=== PATIENT | female | born 1960 | race Hispanic/Latino ===

== ENCOUNTER 2017-05-08 19:47 | Inpatient (IN) | payer MEDICARE ==
[2017-05-08] MEDS ORDERED: NACL 0.9% 1000 ML IV ONE (21:05)
[2017-05-08] MEDS ORDERED: MAXIPIME/NS 2 GM/100 ML 2 GM/100 ML BAG IV ONE (21:05)
[2017-05-08] MEDS ORDERED: VANCOMYCIN VIAL IV ONE (21:07)
[2017-05-08] MEDS ORDERED: ARTIFICIAL TEARS OPHTH OINT OU PRN (21:07)
[2017-05-08] MEDS ORDERED: VASELINE LIP THERAPY TP PRN (21:07)
[2017-05-08] MEDS ORDERED: ATIVAN IV PRN (21:07)
--- NOTE | 2017-05-08 21:10 | Emergency Department Report ---
ED General Adult HPI - General Chief complaint: Pain General Stated complaint: ABD PAIN Time Seen by Provider: 05/08/17 20:45 Source: EMS (ems notes not available at time of chart dictation), RN notes reviewed, old records reviewed Mode of arrival: Stretcher Limitations: Altered Mental Status - History of Present Illness Initial comments: This is a 56-year-old female. This provider has evaluated this patient in the past. As per my previous documentation, patient has a past medical history of end-stage renal disease on dialysis, diabetes, hypertension, high cholesterol and heart disease. The patient is brought to the hospital by EMS. EMS verbally reported that the patient's family contacted them because of generalized weakness. When I initially went to evaluate this patient, the patient was slumped over and somnolent. She was very difficult to arouse. The patient was not protecting her airway. Therefore, she was intubated by myself using direct laryngoscopy; patient was induced with 150 mg of ketamine, and paralyzed with 100 mg of rocuronium. A Katja 3 blade was inserted using direct laryngoscopy, and a 7.5 endotracheal tube was placed by myself with 1 attempt, with no difficulty, and had positive postintubation color change and bilateral breath sounds. Patient found to be hypotensive, low-grade temperature of 100.2, tachycardic. Sepsis called overhead. No family is available at this time for collateral corroborating information. History is otherwise limited except as noted. -: unknown Severity scale (0 -10): 0 Quality: other (per hpi) Consistency: other (per hpi) Improves with: other (per hpi) Worsens with: other (per hpi) Associated Symptoms: confusion, shortness of breath, weakness, other (per hpi) - Related Data Home Medications Medication Instructions Recorded Confirmed Last Taken Aspirin [Aspirin BABY CHEW TAB] 81 mg PO QDAY 02/17/16 05/28/16 05/26/16 AtorvaSTATin [Lipitor] 40 mg PO DAILY 02/17/16 05/28/16 05/26/16 Cinacalcet [Sensipar] 30 mg PO BID 02/17/16 05/28/16 05/26/16 Cyclobenzaprine [Flexeril 10 MG 10 mg PO TID PRN 02/17/16 05/28/16 05/26/16 TAB] Furosemide [Lasix TAB] 40 mg PO QDAY 02/17/16 05/28/16 05/26/16 Gabapentin [Neurontin] 300 mg PO Q8HR 02/17/16 05/28/16 05/26/16 Lisinopril [Zestril TAB] 20 mg PO QDAY 02/17/16 05/28/16 05/26/16 Omeprazole 20 mg PO DAILY 02/17/16 05/28/16 05/26/16 Promethazine [Phenergan TAB] 25 mg PO Q6HR PRN 02/17/16 05/28/16 05/26/16 Sertraline [Zoloft] 50 mg PO QDAY 02/17/16 05/28/16 05/26/16 Sevelamer Carbonate [Renvela] 800 mg PO TIDWM 02/17/16 05/28/16 05/26/16 Ticagrelor [Brilinta] 90 mg PO BID 02/17/16 05/28/16 05/26/16 amLODIPine [Norvasc] 5 mg PO DAILY 02/17/16 05/28/16 05/26/16 traZODone [Desyrel] 50 mg PO QHS 02/17/16 05/28/16 05/26/16 Previous Rx's Medication Instructions Recorded Last Taken Type Albuterol Sulfate [Ventolin HFA] 2 puff IH Q4H PRN #1 pump 04/11/16 05/26/16 Rx Prednisone [predniSONE 5 mg (6-Day 5 mg PO .TAPER #1 tab.ds.pk 04/11/16 Rx Pack, 21 Tabs)] Allergies Allergy/AdvReac Type Severity Reaction Status Date / Time Sulfa (Sulfonamide Allergy Unknown Verified 05/08/17 20:32 Antibiotics) ED Review of Systems ROS: Stated complaint: ABD PAIN Other details as noted in HPI Comment: Unobtainable due to pts medical conditions ED Past Medical Hx - Past Medical History Previous Medical History?: Yes Hx Hypertension: Yes Hx CVA: Yes Hx Heart Attack/AMI: Yes Hx Congestive Heart Failure: Yes Hx Diabetes: Yes Hx Renal Disease: Yes (MWF dialysis.) Hx Asthma: No Hx COPD: No Hx HIV: No - Surgical History Hx Coronary Stent: Yes (01/2016) Hx Cholecystectomy: Yes Additional Surgical History: Fistula Placement in Left arm. - Social History Smoking Status: Current Every Day Smoker Substance Use Type: None - Medications Home Medications: Home Medications Medication Instructions Recorded Confirmed Last Taken Type Aspirin [Aspirin BABY CHEW TAB] 81 mg PO QDAY 02/17/16 05/28/16 05/26/16 History AtorvaSTATin [Lipitor] 40 mg PO DAILY 02/17/16 05/28/16 05/26/16 History Cinacalcet [Sensipar] 30 mg PO BID 02/17/16 05/28/16 05/26/16 History Cyclobenzaprine [Flexeril 10 MG 10 mg PO TID PRN 02/17/16 05/28/16 05/26/16 History TAB] Furosemide [Lasix TAB] 40 mg PO QDAY 02/17/16 05/28/16 05/26/16 History Gabapentin [Neurontin] 300 mg PO Q8HR 02/17/16 05/28/16 05/26/16 History Lisinopril [Zestril TAB] 20 mg PO QDAY 02/17/16 05/28/16 05/26/16 History Omeprazole 20 mg PO DAILY 02/17/16 05/28/16 05/26/16 History Promethazine [Phenergan TAB] 25 mg PO Q6HR PRN 02/17/16 05/28/16 05/26/16 History Sertraline [Zoloft] 50 mg PO QDAY 02/17/16 05/28/16 05/26/16 History Sevelamer Carbonate [Renvela] 800 mg PO TIDWM 02/17/16 05/28/16 05/26/16 History Ticagrelor [Brilinta] 90 mg PO BID 02/17/16 05/28/16 05/26/16 History amLODIPine [Norvasc] 5 mg PO DAILY 02/17/16 05/28/16 05/26/16 History traZODone [Desyrel] 50 mg PO QHS 02/17/16 05/28/16 05/26/16 History Albuterol Sulfate [Ventolin HFA] 2 puff IH Q4H PRN #1 pump 04/11/16 05/28/16 Rx Prednisone [predniSONE 5 mg (6-Day 5 mg PO .TAPER #1 tab.ds.pk 04/11/1605/26/16 Rx Pack, 21 Tabs)] ED Physical Exam - General Limitations: No Limitations, Altered Mental Status, Physical Limitation General appearance: obtunded - Head Head exam: Present: other (patient has numerous ecchymoses in various stages of healing on the face.) - Eye Eye exam: Present: normal appearance, PERRL, other (cloudy pupils bilaterally, reactive to light bilaterally.) - ENT ENT exam: Present: mucous membranes dry - Neck Neck exam: Present: normal inspection, full ROM - Respiratory Respiratory exam: Present: respiratory distress, rhonchi - Cardiovascular Cardiovascular Exam: Present: tachycardia, normal heart sounds, JVD - GI/Abdominal GI/Abdominal exam: Present: soft, tenderness, normal bowel sounds, other ( numerous ecchymoses noted). Absent: distended, guarding, rebound, rigid, pulsatile mass - Rectal Rectal exam: Present: normal inspection, normal rectal tone, heme (-) stool - External exam: Present: normal external exam - Extremities Exam Extremities exam: Absent: tenderness, pedal edema - Back Exam Back exam: Absent: paraspinal tenderness, vertebral tenderness - Neurological Exam Neurological exam: Present: altered, other (patient made some nonsensical statements prior to intubation, moves 4 extremities when induced with ketamine) - Skin Skin exam: Present: dry, ecchymosis ED Course Vital Signs 05/08/17 05/08/17 05/08/17 20:30 20:40 20:42 Temperature Pulse Rate 96 H 96 H 95 H Respiratory 26 H 27 H 30 H Rate Blood Pressure 86/53 Blood Pressure 86/53 [Right] O2 Sat by Pulse 96 96 Oximetry 05/08/17 05/08/17 05/08/17 20:51 21:00 21:10 Temperature Pulse Rate 94 H 90 96 H Respiratory 37 H 20 18 Rate Blood Pressure 91/57 93/57 Blood Pressure [Right] O2 Sat by Pulse 100 100 Oximetry 05/08/17 05/08/17 05/08/17 21:14 21:20 21:30 Temperature Pulse Rate 97 H 96 H 96 H Respiratory 18 18 Rate Blood Pressure 93/57 85/50 93/57 Blood Pressure [Right] O2 Sat by Pulse 95 94 Oximetry 05/08/17 05/08/17 05/08/17 21:40 21:50 22:00 Temperature Pulse Rate 98 H 98 H 100 H Respiratory 14 18 17 Rate Blood Pressure 90/53 90/58 96/62 Blood Pressure [Right] O2 Sat by Pulse Oximetry 05/08/17 05/08/17 05/08/17 22:10 22:20 22:30 Temperature Pulse Rate 99 H 92 H 92 H Respiratory 18 18 18 Rate Blood Pressure 101/60 88/52 90/53 Blood Pressure [Right] O2 Sat by Pulse 100 100 100 Oximetry 05/08/17 05/08/17 05/08/17 22:40 22:50 23:14 Temperature Pulse Rate 90 86 Respiratory 18 18 Rate Blood Pressure 87/45 78/39 73/31 Blood Pressure [Right] O2 Sat by Pulse 100 100 Oximetry 05/08/17 05/08/17 05/08/17 23:20 23:30 23:40 Temperature Pulse Rate 83 84 87 Respiratory 18 18 18 Rate Blood Pressure 71/37 67/35 91/56 Blood Pressure [Right] O2 Sat by Pulse 100 100 100 Oximetry 05/08/17 05/09/17 05/09/17 23:50 00:00 00:10 Temperature Pulse Rate 87 90 94 H Respiratory 18 18 18 Rate Blood Pressure 75/40 67/29 108/61 Blood Pressure [Right] O2 Sat by Pulse 100 100 100 Oximetry 05/09/17 05/09/17 05/09/17 00:14 00:15 00:20 Temperature Pulse Rate 94 H 94 H 95 H Respiratory 18 17 18 Rate Blood Pressure 108/61 107/66 106/63 Blood Pressure [Right] O2 Sat by Pulse 100 100 Oximetry 05/09/17 05/09/17 05/09/17 00:25 00:30 00:35 Temperature 100.2 F H Pulse Rate 94 H 94 H 94 H Respiratory 18 18 18 Rate Blood Pressure 106/66 105/65 104/63 Blood Pressure 108/68 [Right] O2 Sat by Pulse 100 100 Oximetry 05/09/17 05/09/17 05/09/17 00:40 00:45 00:50 Temperature Pulse Rate 94 H 93 H 94 H Respiratory 19 18 18 Rate Blood Pressure 102/61 97/56 101/59 Blood Pressure [Right] O2 Sat by Pulse 99 96 Oximetry 05/09/17 05/09/17 05/09/17 00:55 01:00 01:05 Temperature Pulse Rate 95 H 95 H 95 H Respiratory 18 18 18 Rate Blood Pressure 104/59 100/54 101/54 Blood Pressure [Right] O2 Sat by Pulse 94 99 100 Oximetry 05/09/17 05/09/17 05/09/17 01:10 01:15 01:20 Temperature Pulse Rate 97 H 101 H 98 H Respiratory 12 18 12 Rate Blood Pressure 101/54 118/62 118/62 Blood Pressure [Right] O2 Sat by Pulse 98 98 Oximetry 05/09/17 05/09/17 05/09/17 01:26 01:30 01:36 Temperature Pulse Rate 96 H 96 H 96 H Respiratory 18 18 18 Rate Blood Pressure 118/62 97/46 97/46 Blood Pressure [Right] O2 Sat by Pulse 100 98 100 Oximetry 05/09/17 05/09/17 05/09/17 01:40 01:45 01:50 Temperature Pulse Rate 96 H 95 H 96 H Respiratory 18 17 19 Rate Blood Pressure 97/46 91/47 91/47 Blood Pressure [Right] O2 Sat by Pulse 100 100 100 Oximetry 05/09/17 05/09/17 05/09/17 01:56 02:00 02:06 Temperature Pulse Rate 96 H 96 H 97 H Respiratory 18 18 18 Rate Blood Pressure 91/47 95/54 95/54 Blood Pressure [Right] O2 Sat by Pulse 100 100 100 Oximetry 05/09/17 05/09/17 05/09/17 02:10 02:15 02:20 Temperature Pulse Rate 96 H 96 H 96 H Respiratory 18 16 18 Rate Blood Pressure 95/54 94/50 94/50 Blood Pressure [Right] O2 Sat by Pulse 100 100 100 Oximetry 05/09/17 05/09/17 05/09/17 02:26 02:30 02:36 Temperature Pulse Rate 97 H 97 H 95 H Respiratory 18 17 18 Rate Blood Pressure 94/50 90/48 90/48 Blood Pressure [Right] O2 Sat by Pulse 100 100 100 Oximetry 05/09/17 05/09/17 05/09/17 02:40 02:45 02:50 Temperature Pulse Rate 95 H 96 H 97 H Respiratory 18 18 18 Rate Blood Pressure 90/48 97/55 97/55 Blood Pressure [Right] O2 Sat by Pulse 100 100 100 Oximetry 05/09/17 05/09/17 05/09/17 02:56 03:00 03:02 Temperature Pulse Rate 96 H 97 H 97 H Respiratory 18 18 18 Rate Blood Pressure 97/55 96/52 96/52 Blood Pressure [Right] O2 Sat by Pulse 100 100 100 Oximetry 05/09/17 05/09/17 05/09/17 03:04 03:06 03:08 Temperature Pulse Rate 97 H 96 H 96 H Respiratory 18 18 18 Rate Blood Pressure 96/52 96/52 96/52 Blood Pressure [Right] O2 Sat by Pulse 100 100 100 Oximetry 05/09/17 05/09/17 05/09/17 03:10 03:12 03:14 Temperature Pulse Rate 96 H 97 H 97 H Respiratory 18 18 18 Rate Blood Pressure 96/52 96/52 96/52 Blood Pressure [Right] O2 Sat by Pulse 100 100 100 Oximetry 05/09/17 05/09/17 05/09/17 03:16 03:18 03:20 Temperature Pulse Rate 96 H 96 H 96 H Respiratory 18 18 18 Rate Blood Pressure 95/50 95/50 95/50 Blood Pressure [Right] O2 Sat by Pulse 100 100 100 Oximetry 05/09/17 05/09/17 05/09/17 03:22 03:24 03:26 Temperature Pulse Rate 96 H 99 H 102 H Respiratory 15 21 31 H Rate Blood Pressure 95/50 95/50 74/38 Blood Pressure [Right] O2 Sat by Pulse 100 100 Oximetry 05/09/17 05/09/17 05/09/17 03:28 03:30 03:32 Temperature Pulse Rate 101 H 99 H 97 H Respiratory 27 H 24 24 Rate Blood Pressure 74/38 94/49 94/49 Blood Pressure [Right] O2 Sat by Pulse 100 100 Oximetry 05/09/17 05/09/17 05/09/17 03:34 04:00 04:01 Temperature 99.3 F Pulse Rate 97 H 97 H Respiratory 19 22 Rate Blood Pressure 94/49 114/96 Blood Pressure [Right] O2 Sat by Pulse 100 95 100 Oximetry - Reevaluation(s) Reevaluation #1: 05/08/17 21:22 Differential diagnosis, including but not limited to: Intracranial injury, cervical spine injury, multifactorial respiratory failure, toxic metabolic encephalopathy, pneumonia, intra-abdominal infection, bacteremia, traumatic chest wall injury, traumatic abdominal injury Assessment and plan: 56 to the hospital by EMS for altered mental status and generalized weakness. Patient found to be hypotensive with a blood pressure in the 90s, patient in respiratory failure and required intubation. Patient altered, tachypnea, low-grade temperature, concerning for sepsis. Patient has multiple ecchymoses all over her body, EMS verbally indicated that the patient was taking blood thinners but they do not know which one. Prior to intubation, the patient did complain of abdominal pain, but she cannot further clarify this. Patient left we treated empirically for sepsis, with IV fluids, and aggressive broad-spectrum antibiotics. The patient we ventilated at a lung protective strategy at 6-8 mL/kg of ideal body weight tidal volume, for ideal body weight. We will obtain CT scan of the brain, cervical spine, chest, abdomen, pelvis. We will reassess once data points have resulted. c 05/15/17 14:55 Reevaluation #2: 05/08/17 21:52 Patient's endotracheal tube is noted in the right mainstem, it is therefore retracted 2.5 cm by respiratory therapy. Reevaluation #3: 05/08/17 21:55 Nasogastric tube noted to be doubled over and the nasopharynx/esophagus, it will be replaced by the nurse. Reevaluation #4: 05/08/17 22:36 Blood pressure improved, systolic 101. Chemistry hemolyzed, repeat study ordered. CT scan pending. Reevaluation #5: 05/08/17 23:55 Patient persistently hypotensive in spite of 3.5 L of saline. Patient is therefore emergently and administratively consented for central line placement by myself given that there are no family members available. Central line placed by this provider using ultrasound guidance, and was confirmed in real time ultrasound placement. Noncontrast CT scan of the brain negative for hemorrhages, sinusitis is suggested, noncontrast CT scan of the cervical spine for fracture/dislocation, multiple disc bulges noted, cord contact noted at several levels, cord compression cannot be excluded. Patient moving 4 extremities prior to intubation, given hypotension, altered mental status, think acute coronary compression very unlikely. CT scan of the chest demonstrates CHF/pulmonary edema versus aspiration pneumonia. CT scan of the abdomen and pelvis suggests infiltrates in the bilateral lower lungs. Cardiomegaly is noted, ascites is noted. Case presents to the Hospital physician, Dr. Vick; he accepts the patient to the medical service. Contacted respiratory therapy, requested that they withdraw the endotracheal tube in additional 2 cm. 05/09/17 01:02 Blood pressure improved, patient remains sedated, minimal urine output, less than 10 mL. - Consultations Consultation #1: 05/08/17 22:38 Case presented to critical care physician, Dr. Miller, he will follow in consultation Patient's blood pressure now 88/50, additional 2 L ordered. Scant urine output thus far - Central Line Placement Left IJ Consent Obtained: verbal consent, emergent situation Time Out Performed: Yes Patient Placed on Monitor/Pulse Ox: Yes MD Prep: mask, gown Central Line Prep: Povidone-Iodine 1%, Chlorhexidine scrub Local Anesthesia Used: Lidocaine 1% Amount of Anesthesia Used (mls): 5 Ultrasound Used for Placement: Yes Central Line Lumen Inserted: triple Bloods Obtained for Lab: Yes Central Line Position: good blood return, all ports aspirated, flus, sutured in place with 2-0 Dressing Applied: Tegaderm Patient Tolerated Procedure: well Complications: none Additional Comments: Patient was hypotensive. Blood pressure in the 70s after 3.5 L of normal saline. No family is immediately available, so patient is emergently and administratively consented by this provider for central line placement for vasopressor administration. Patient was prepped and draped in typical sterile fashion, and had a left-sided internal jugular triple-lumen central line placed using ultrasound guidance. The catheter placement was confirmed with ultrasound visualization in real-time. Post procedure x-rays pending at this time. - EJ/Peripheral Line Neck R Time Out Performed: Yes Indications: multiple IV sites needed Skin Cleansed in Sterile Fashion: Yes Size: 18 Dressing Placed: Tegaderm Patient Tolerated Procedure: well - Intubation Time Out Performed: Yes Sedative: Ketamine Mg Given: 150 Paralytic: Rocuronium Mg Given: 100 Laryngoscope: Katja Size: 3 ET Tube Size: 7.5 Tube Secured Location: teeth Tube Placement Confirmation: visualized tube passing t Patient Tolerated Procedure: well Intubation Complications: none Additional Comments: Patient placed on a nasal cannula at 15 L/m. Patient receives [id number] ventilation. Patient is induced with ketamine, and paralyzed with rocuronium. A 7.5 endotracheal tube was placed by myself with 1 attempt with no difficulty. ED Medical Decision Making - Lab Data Result diagrams: 05/15/17 03:45 05/15/17 12:15 Vital Signs 05/08/17 05/08/17 05/08/17 20:30 20:42 21:14 Pulse Rate 96 H 95 H 97 H Respiratory 26 H 30 H Rate Blood Pressure 93/57 Blood Pressure 86/53 [Right] O2 Sat by Pulse 96 95 Oximetry Lab Results 05/08/17 05/08/17 05/08/17 Range/Units 21:25 21:25 21:25 WBC 10.1 (4.5-11.0) K/mm3 RBC 2.55 L (3.65-5.03) M/mm3 Hgb 8.9 L (10.1-14.3) gm/dl Hct 28.1 L (30.3-42.9) % MCV 111 H (79-97) fl MCH 35 H (28-32) pg MCHC 32 (30-34) % RDW 25.4 H (13.2-15.2) % Plt Count 214 (140-440) K/mm3 Lymph % (Auto) Grizzly Worker [place] % (Auto) Grizzly Worker Eos % (Auto) Grizzly Worker Baso % (Auto) Grizzly Worker Lymph # Grizzly Worker [place] # Grizzly Worker Eos # Grizzly Worker Baso # Grizzly Worker Add Manual Diff Complete Total Counted 100 Seg Neutrophils % Grizzly Worker Seg Neuts % (Manual) 92.0 H (40.0-70.0) % Band Neutrophils % 0 % Lymphocytes % (Manual) 6.0 L (13.4-35.0) % Reactive Lymphs % (Man) 0 % Monocytes % (Manual) 2.0 (0.0-7.3) % Eosinophils % (Manual) 0 (0.0-4.3) % Basophils % (Manual) 0 (0.0-1.8) % Metamyelocytes % 0 % Myelocytes % 0 % Promyelocytes % 0 % Blast Cells % 0 % Nucleated RBC % Not Reportable Seg Neutrophils # Grizzly Worker Seg Neutrophils # Man 9.3 H (1.8-7.7) K/mm3 Band Neutrophils # 0.0 K/mm3 Lymphocytes # (Manual) 0.6 L (1.2-5.4) K/mm3 Abs React Lymphs (Man) 0.0 K/mm3 Monocytes # (Manual) 0.2 (0.0-0.8) K/mm3 Eosinophils # (Manual) 0.0 (0.0-0.4) K/mm3 Basophils # (Manual) 0.0 (0.0-0.1) K/mm3 Metamyelocytes # 0.0 K/mm3 Myelocytes # 0.0 K/mm3 Promyelocytes # 0.0 K/mm3 Blast Cells # 0.0 K/mm3 WBC Morphology Not Reportable Hypersegmented Neuts Not Reportable Hyposegmented Neuts Not Reportable Hypogranular Neuts Not Reportable Smudge Cells Not Reportable Toxic Granulation Not Reportable Toxic Vacuolation Not Reportable Dohle Bodies Not Reportable Pelger-Huet Anomaly Not Reportable Anthony Rods Not Reportable Platelet Estimate Consistent w auto Clumped Platelets Not Reportable Plt Clumps, EDTA Not Reportable Large Platelets Not Reportable Giant Platelets Not Reportable Platelet Satelliting Not Reportable Plt Morphology Comment Not Reportable RBC Morphology Not Reportable Dimorphic RBCs Yes Polychromasia 1+ Hypochromasia Not Reportable Poikilocytosis Not Reportable Anisocytosis Not Reportable Microcytosis 1+ Macrocytosis 1+ Spherocytes Not Reportable Pappenheimer Bodies Not Reportable Sickle Cells Not Reportable Target Cells Not Reportable Tear Drop Cells Few Ovalocytes Not Reportable Helmet Cells Not Reportable Milligan-[place] Bodies Not Reportable [place] Rings Not Reportable [place] Cells Not Reportable Bite Cells Not Reportable Crenated Cell Not Reportable Elliptocytes Not Reportable Acanthocytes (Spur) Not Reportable Rouleaux Not Reportable Hemoglobin C Crystals Not Reportable Schistocytes Not Reportable Malaria parasites Not Reportable Jose Bodies Not Reportable Hem Pathologist Commnt No PT 15.2 H (12.2-14.9) Sec. INR 1.14 H (0.87-1.13) Sodium Potassium Chloride Carbon Dioxide Anion Gap BUN Creatinine Estimated GFR BUN/Creatinine Ratio Glucose Lactic Acid 2.50 H* (0.7-2.0) mmol/L Calcium Total Bilirubin AST ALT Alkaline Phosphatase Troponin T Total Protein Albumin Albumin/Globulin Ratio Salicylates (2.8-20.0) mg/dL Acetaminophen (10.0-30.0) ug/mL 05/08/17 05/08/17 05/08/17 Range/Units 21:25 21:35 21:35 WBC (4.5-11.0) K/mm3 RBC (3.65-5.03) M/mm3 Hgb (10.1-14.3) gm/dl Hct (30.3-42.9) % MCV (79-97) fl MCH (28-32) pg MCHC (30-34) % RDW (13.2-15.2) % Plt Count (140-440) K/mm3 Lymph % (Auto) [place] % (Auto) Eos % (Auto) Baso % (Auto) Lymph # [place] # Eos # Baso # Add Manual Diff Total Counted Seg Neutrophils % Seg Neuts % (Manual) (40.0-70.0) % Band Neutrophils % % Lymphocytes % (Manual) (13.4-35.0) % Reactive Lymphs % (Man) % Monocytes % (Manual) (0.0-7.3) % Eosinophils % (Manual) (0.0-4.3) % Basophils % (Manual) (0.0-1.8) % Metamyelocytes % % Myelocytes % % Promyelocytes % % Blast Cells % % Nucleated RBC % Seg Neutrophils # Seg Neutrophils # Man (1.8-7.7) K/mm3 Band Neutrophils # K/mm3 Lymphocytes # (Manual) (1.2-5.4) K/mm3 Abs React Lymphs (Man) K/mm3 Monocytes # (Manual) (0.0-0.8) K/mm3 Eosinophils # (Manual) (0.0-0.4) K/mm3 Basophils # (Manual) (0.0-0.1) K/mm3 Metamyelocytes # K/mm3 Myelocytes # K/mm3 Promyelocytes # K/mm3 Blast Cells # K/mm3 WBC Morphology Hypersegmented Neuts Hyposegmented Neuts Hypogranular Neuts Smudge Cells Toxic Granulation Toxic Vacuolation Dohle Bodies Pelger-Huet Anomaly Anthony Rods Platelet Estimate Clumped Platelets Plt Clumps, EDTA Large Platelets Giant Platelets Platelet Satelliting Plt Morphology Comment RBC Morphology Dimorphic RBCs Polychromasia Hypochromasia Poikilocytosis Anisocytosis Microcytosis Macrocytosis Spherocytes Pappenheimer Bodies Sickle Cells Target Cells Tear Drop Cells Ovalocytes Helmet Cells Milligan-[place] Bodies [place] Rings [place] Cells Bite Cells Crenated Cell Elliptocytes Acanthocytes (Spur) Rouleaux Hemoglobin C Crystals Schistocytes Malaria parasites Jose Bodies Hem Pathologist Commnt PT (12.2-14.9) Sec. INR (0.87-1.13) Sodium TNR Potassium TNR Chloride TNR Carbon Dioxide TNR Anion Gap TNR BUN TNR Creatinine TNR Estimated GFR TNR BUN/Creatinine Ratio TNR Glucose TNR Lactic Acid (0.7-2.0) mmol/L Calcium TNR Total Bilirubin TNR AST TNR ALT TNR Alkaline Phosphatase TNR Troponin T TNR Total Protein TNR Albumin TNR Albumin/Globulin Ratio TNR Salicylates < 0.3 L (2.8-20.0) mg/dL Acetaminophen < 15.0 (10.0-30.0) ug/mL - EKG Data -: EKG Interpreted by Me EKG shows normal: sinus rhythm Rate: normal - EKG Data 05/08/17 22:38 Sinus, 94 bpm, normal axis, QTC prolonged, motion artifact, low voltage, abnormal EKG, not morphologically consistent with stemi - Radiology Data Radiology results: report reviewed, image reviewed interpreted by me: Initial x-ray demonstrates right mainstem intubation, cardiomegaly, left-sided pulmonary atelectasis versus consolidation. Nasogastric tube is coiled. Critical Care Time: Yes Critical care time in (mins) excluding proc time.: 60 Critical care attestation.: If time is entered above; I have spent that time in minutes in the direct care of this critically ill patient, excluding procedure time. ED Disposition Clinical Impression: ESRD (end stage renal disease), Respiratory failure, Altered mental status Disposition: OP ADMIT IP TO THIS HOSP Is pt being admited?: Yes Condition: Critical
[2017-05-08] MEDS ORDERED: VANCOMYCIN 1,250 MG in NACL 0.9% 250ML 250 ML IV ONE (21:30)
[2017-05-08] MEDS ORDERED: MAXIPIME 2 GM in NACL 0.9% 20 ML IV ONE (21:30)
[2017-05-08 21:42] LABS: Hematocrit 28.1 % (30.3-42.9); Hemoglobin 8.9 gm/dl (10.1-14.3); Mean Corpuscular HGB Conc 32 % (30-34); Mean Corpuscular Hemoglobin 35 pg (28-32); Platelet Count 214 K/mm3 (140-440); Red Blood Count 2.55 M/mm3 (3.65-5.03)
[2017-05-08 21:43] LABS: Mean Corpuscular Volume 111 fl (79-97); Red Cell Distribution Width 25.4 % (13.2-15.2)
[2017-05-08 21:45] LABS: INR 1.14 (0.87-1.13)
[2017-05-08] MEDS ORDERED: VANCOMYCIN PHARMACY TO DOSE IV SCH (22:00)
[2017-05-08] MEDS ORDERED: NACL 0.9% 500 ML IV SCH (22:00)
[2017-05-08] MEDS ORDERED: fentaNYL DRIP Premix 2,000 MCG/100 ML BAG IV SCH (22:00)
--- NOTE | 2017-05-08 22:05 | XRay Report ---
FINAL REPORT PROCEDURE: XR CHEST 1V AP TECHNIQUE: Chest radiograph anteroposterior view. CPT 07328 HISTORY: ETT placement COMPARISON: 05/26/2016 FINDINGS: Heart: Appears to be moderately enlarged.. Mediastinum/Vessels: Normal. Lungs/Pleural space: There is consolidation of left perihilar region. Left lower lung and left costophrenic angle are obscured by the cardiac shadow. Right pleural space is clear.. Bony thorax: No acute osseous abnormality. Life support devices: Endotracheal tube is terminating in the distal right main bronchus. A nasogastric tube as a 180 degree turn in the distal esophagus and appears to be terminating in the cervical portion.. IMPRESSION: Endotracheal tube is terminating in the distal right main bronchus. Consolidation of left pre hilar region may represent pneumonia versus atelectatic change. Nasogastric tube has a hairpin band in the distal esophagus..
[2017-05-08 22:19] LABS: Blood Urea Nitrogen TNR mg/dL (7-17)
[2017-05-08 22:20] LABS: BUN/Creatinine Ratio TNR; Calcium TNR mg/dL (8.4-10.2)
[2017-05-08 22:21] LABS: Alanine Aminotransferase TNR units/L (7-56); Albumin TNR g/dL (3.9-5); Hemolysis Index TNR
[2017-05-08 22:28] LABS: Total Cells Counted 100
[2017-05-08 22:29] LABS: Basophils % (Manual) 0 % (0.0-1.8); Eosinophils % (Manual) 0 % (0.0-4.3)
[2017-05-08 22:32] LABS: Dimorphic RBC Yes; Macrocytosis 1+; Tear Drop Cells Few
[2017-05-08 22:33] LABS: Platelet Estimate Consistent w Auto
[2017-05-08] MEDS ORDERED: NACL 0.9% 1000 ML 2,000 ML IV ONE (22:37)
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
--- NOTE | 2017-05-08 23:41 | Cat Scan Report ---
FINAL REPORT PROCEDURE: CT ABDOMEN PELVIS WO CON TECHNIQUE: Computerized axial tomography of the abdomen and pelvis was performed without intravenous contrast. This study is performed without intravascular contrast material and its sensitivity for abdominal and pelvic pathology, including neoplasms, inflammation, abscess, free fluid, thrombosis, arterial dissection and infarction, is reduced compared with a contrast enhanced study. HISTORY: Fever/Sepsis COMPARISON: No prior studies are available for comparison. FINDINGS: Extensive infiltrates are identified involving the visualized bilateral lower lungs. There is [id number] cardiomegaly. Cul of, and adrenal glands are within normal limits. A nasogastric tube is identified. Bilateral kidneys demonstrate thinning of parenchyma. No calculi or hydronephrosis or identified. A Fontaine bulb is noted with the empty urinary bladder. Atherosclerotic calcification is noted involving aorta iliac vessels. There is moderate degree ascites. No free fluid is noted. Status post cholecystectomy. Small calcified granulomas are noted in the liver and spleen. Small bowel loops are within normal limits. Moderate amount of residual stool is noted. Appendix is normal. Benign-appearing calcifications are noted in the uterus most likely representing calcified fibroids.. IMPRESSION: Infiltrates visualized bilateral lower lungs. Moderate cardiomegaly Moderate ascites.
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
[2017-05-08] MEDS ORDERED: LEVOPHED DRIP 4 MG/NS 250 ML 4 MG/250 ML BAG IV SCH (23:45)
[2017-05-08 23:56] LABS: Calcium 7.3 mg/dL (8.4-10.2)
[2017-05-08 23:57] LABS: Albumin 2.9 g/dL (3.9-5)
[2017-05-09] MEDS ORDERED: KETALAR ONE (00:24)
[2017-05-09] MEDS ORDERED: ZEMURON IV ONE (00:24)
--- NOTE | 2017-05-09 00:29 | XRay Report ---
FINAL REPORT PROCEDURE: XR CHEST 1V AP TECHNIQUE: Chest radiograph anteroposterior view. CPT 41252 HISTORY: s/p central line placement COMPARISON: 05/08/2017 FINDINGS: Heart: Normal. Mediastinum/Vessels: Normal. Lungs/Pleural space: There are bilateral lower lobe pulmonary infiltrates.. Bony thorax: No acute osseous abnormality. Life support devices: ET tube is in the mid trachea. NG tube is in the stomach. There a left-sided central venous catheter. The tip is in the superior vena cava.. IMPRESSION: Heart size is normal.. There are bilateral lower lobe pulmonary infiltrates.. ET tube is in the mid trachea. NG tube is in the stomach. There a left-sided central venous catheter. The tip is in the superior vena cava..
[2017-05-09] MEDS ORDERED: VANCOMYCIN PHARMACY TO DOSE IV SCH (01:00)
[2017-05-09] MEDS ORDERED: TYLENOL PR PRN (01:10)
[2017-05-09 01:46] LABS: Bacteria,Urine 1+ /HPF (Negative); Bilirubin,Urine NEG (Negative); Blood,Urine SM (Negative); Color,Urine Yellow (Yellow); Nitrite,Urine NEG (Negative); Urobilinogen,Urine < 2.0 mg/dL (<2.0)
[2017-05-09] MEDS ORDERED: LEVOPHED DRIP 4 MG/NS 250 ML 4 MG/250 ML BAG IV SCH ×2 (02:00→09:00)
[2017-05-09] MEDS ORDERED: MAXIPIME/NS 1 GM/100 ML 1 GM/100 ML BAG IV SCH (06:00)
[2017-05-09] MEDS ORDERED: MAXIPIME 1 GM in NACL 0.9% 20 ML IV SCH (06:00)
[2017-05-09 06:43] LABS: Calcium 7.7 mg/dL (8.4-10.2)
[2017-05-09 06:44] LABS: Creatine Kinase MB 2.1 ng/mL (0.0-4.0)
[2017-05-09 06:48] LABS: Hemoglobin 9.3 gm/dl (10.1-14.3); Mean Corpuscular HGB Conc 31 % (30-34); Mean Corpuscular Hemoglobin 35 pg (28-32); Mean Corpuscular Volume 112 fl (79-97); Platelet Count 280 K/mm3 (140-440); Red Blood Count 2.67 M/mm3 (3.65-5.03); Red Cell Distribution Width 24.4 % (13.2-15.2)
[2017-05-09 06:58] LABS: Chol/HDL Ratio 2.7 %
[2017-05-09] MEDS: HEPARIN SUB-Q SCH ×2 (10:23→22:12)
--- NOTE | 2017-05-09 11:22 | Consultation ---
History of Present Illness Consult date: 05/09/17 Requesting physician: KELLEY DAVIS Reason for consult: hypoxemia, abnormal CXR/CT History of present illness: 56 y/o female, with ESRD on HD, brought in by EMS with altered mental status. Per ED physician, not able to protect her airway so was intubated. CT of chest shows diffuse GGO's with some areas of consolidation vs edema and shotty lymphadenopathy, likely secondary to pulmonary edema. patient was also hypotensive so was started on Levophed. No family at bedside. patient is awake. I do not know what days she gets HD. has a fistula in upper arm. Past History Past Medical History: ESRD, hypertension, hyperlipidemia Past Surgical History: Other (fistula placement) Social history: other (unable to obtain) Medications and Allergies Allergies Allergy/AdvReac Type Severity Reaction Status Date / Time Sulfa (Sulfonamide Allergy Unknown Verified 05/08/17 20:32 Antibiotics) Home Medications Medication Instructions Recorded Confirmed Last Taken Type Aspirin [Aspirin BABY CHEW TAB] 81 mg PO QDAY 02/17/16 05/28/16 05/26/16 History AtorvaSTATin [Lipitor] 40 mg PO DAILY 02/17/16 05/28/16 05/26/16 History Cinacalcet [Sensipar] 30 mg PO BID 02/17/16 05/28/16 05/26/16 History Cyclobenzaprine [Flexeril 10 MG 10 mg PO TID PRN 02/17/16 05/28/16 05/26/16 History TAB] Furosemide [Lasix TAB] 40 mg PO QDAY 02/17/16 05/28/16 05/26/16 History Gabapentin [Neurontin] 300 mg PO Q8HR 02/17/16 05/28/16 05/26/16 History Lisinopril [Zestril TAB] 20 mg PO QDAY 02/17/16 05/28/16 05/26/16 History Omeprazole 20 mg PO DAILY 02/17/16 05/28/16 05/26/16 History Promethazine [Phenergan TAB] 25 mg PO Q6HR PRN 02/17/16 05/28/16 05/26/16 History Sertraline [Zoloft] 50 mg PO QDAY 02/17/16 05/28/16 05/26/16 History Sevelamer Carbonate [Renvela] 800 mg PO TIDWM 02/17/16 05/28/16 05/26/16 History Ticagrelor [Brilinta] 90 mg PO BID 02/17/16 05/28/16 05/26/16 History amLODIPine [Norvasc] 5 mg PO DAILY 02/17/16 05/28/16 05/26/16 History traZODone [Desyrel] 50 mg PO QHS 02/17/16 05/28/16 05/26/16 History Albuterol Sulfate [Ventolin HFA] 2 puff IH Q4H PRN #1 pump 04/11/16 05/28/16 Rx Prednisone [predniSONE 5 mg (6-Day 5 mg PO .TAPER #1 tab.ds.pk 04/11/1605/26/16 Rx Pack, 21 Tabs)] Active Meds: Active Medications Acetaminophen (Tylenol) 650 mg MI Q4H PRN PRN Reason: Pain, Mild (1-3) Heparin Sodium (Porcine) (Heparin) 5,000 unit SUB-Q Q12HR TATIANA Last Admin: 05/09/17 10:23 Dose: 5,000 unit Hydrophilic Ointment (Vaseline Lip Therapy) 1 applic TP Q2HR PRN PRN Reason: Dry Lips Fentanyl Citrate (Fentanyl Drip Premix) 2,000 mcg in 100 mls @ 3.402 mls/hr IV TITR TATIANA; 1 MCG/KG/HR PRN Reason: Protocol Last Titration: 05/09/17 07:00 Dose: 0 mcg/kg/hr, 0 mls/hr Norepinephrine (Levophed Drip 4 Mg/Ns 250 Ml) 4 mg in 250 mls @ 7.5 mls/hr IV TITR TATIANA; 2 MCG/MIN PRN Reason: Protocol Lorazepam (Ativan) 4 mg IV Q4HR PRN PRN Reason: Agitation Multi-Ingred Cream/Lotion/Oil/Oint (Artificial Tears Ophth Oint) 1 applic OU Q4HR PRN PRN Reason: Dry Eye(s) Ondansetron HCl (Zofran) 4 mg IV Q8H PRN PRN Reason: Nausea And Vomiting Sodium Chloride (Nacl 0.9% 500 Ml) 1 ml IV DIRECT TATIANA Vancomycin HCl (Vancomycin Pharmacy To Dose) 1 each IV PKCONSULT TATIANA PRN Reason: Protocol Review of Systems ROS unobtainable: due to endotracheal tube Physical Examination Vital signs: Vital Signs Pulse Resp 96 H 26 H 05/08/17 20:30 05/08/17 20:30 General appearance: alert, appears uncomfortable (awake while intubated and coughing) ENT: other (orally intubated) Neck: supple Effort: normal Ascultation: Bilateral: rales Percussion: Bilateral: not dull Cardiovascular: regular rate and rhythm Gastrointestinal: normoactive bowel sounds, soft, non-tender Integumentary: normal Results - Laboratory Findings CBC and BMP: 05/09/17 06:00 05/09/17 06:00 ABG POC ABG pH 7.323 (7.35-7.45) L 05/09/17 08:52 POC ABG pCO2 41.8 (35-45) 05/09/17 08:52 POC ABG pO2 143 (80-105) H 05/09/17 08:52 POC ABG HCO3 21.7 05/09/17 08:52 POC ABG Total CO2 23 05/09/17 08:52 POC ABG O2 Sat 99 05/09/17 08:52 PT/INR, D-dimer PT 15.2 Sec. (12.2-14.9) H 05/08/17 21:25 INR 1.14 (0.87-1.13) H 05/08/17 21:25 Abnormal lab findings: Abnormal Labs 05/08/17 05/08/17 05/08/17 21:25 21:25 21:25 WBC RBC 2.55 L Hgb 8.9 L Hct 28.1 L MCV 111 H MCH 35 H RDW 25.4 H Seg Neuts % (Manual) 92.0 H Lymphocytes % (Manual) 6.0 L Seg Neutrophils # Man 9.3 H Lymphocytes # (Manual) 0.6 L PT 15.2 H INR 1.14 H POC ABG pH POC ABG pCO2 POC ABG pO2 Chloride BUN Creatinine Glucose Lactic Acid 2.50 H* Calcium Alkaline Phosphatase Total Creatine Kinase CK-MB (CK-2) Rel Index Troponin T Total Protein Albumin LDL Cholesterol Direct HDL Cholesterol Urine WBC (Auto) Salicylates 05/08/17 05/08/17 05/08/17 21:35 22:04 22:42 WBC RBC Hgb Hct MCV MCH RDW Seg Neuts % (Manual) Lymphocytes % (Manual) Seg Neutrophils # Man Lymphocytes # (Manual) PT INR POC ABG pH 7.271 L POC ABG pCO2 56.5 H POC ABG pO2 30 L Chloride 107.8 H BUN 22 H Creatinine 2.6 H Glucose 202 H Lactic Acid Calcium 7.3 L Alkaline Phosphatase 258 H Total Creatine Kinase CK-MB (CK-2) Rel Index Troponin T Total Protein 5.2 L Albumin 2.9 L LDL Cholesterol Direct HDL Cholesterol Urine WBC (Auto) Salicylates < 0.3 L 05/08/17 05/09/17 05/09/17 Unknown 00:24 06:00 WBC RBC Hgb Hct MCV MCH RDW Seg Neuts % (Manual) Lymphocytes % (Manual) Seg Neutrophils # Man Lymphocytes # (Manual) PT INR POC ABG pH 7.283 L POC ABG pCO2 49.9 H POC ABG pO2 249 H Chloride BUN Creatinine Glucose Lactic Acid Calcium Alkaline Phosphatase Total Creatine Kinase 19 L CK-MB (CK-2) Rel Index 11.0 H Troponin T 0.612 H* Total Protein Albumin LDL Cholesterol Direct 21 L HDL Cholesterol 27 L Urine WBC (Auto) 16.0 H Salicylates 05/09/17 05/09/17 05/09/17 06:00 06:00 08:52 WBC 11.7 H RBC 2.67 L Hgb 9.3 L Hct 30.0 L MCV 112 H MCH 35 H RDW 24.4 H Seg Neuts % (Manual) Lymphocytes % (Manual) Seg Neutrophils # Man Lymphocytes # (Manual) PT INR POC ABG pH 7.323 L POC ABG pCO2 POC ABG pO2 143 H Chloride BUN 24 H Creatinine 2.9 H Glucose 172 H Lactic Acid Calcium 7.7 L Alkaline Phosphatase Total Creatine Kinase CK-MB (CK-2) Rel Index Troponin T Total Protein Albumin LDL Cholesterol Direct HDL Cholesterol Urine WBC (Auto) Salicylates - Diagnostic Findings Chest x-ray: image reviewed CT scan - chest: image reviewed Assessment and Plan 56 y/o female with acute respiratory failure, most likely secondary to volume overload and altered mental status, exact etiology unknown. Based on documentation, intubated secondary to inability to protect airway and altered mental status. Awake this am. ABG is adequate and good sats on 35. Unsure if there is underlying lung disease but CT appears to be consistent with volume overload. Unsure of last HD. Will recommend the followin. Attempt Extubation now that patient is awake 2. Ordered Bipap PRN 3. If patient makes urine, could benefit from some volume removal but will wait on renal evaluation 4. Administered very broad spec abx, renally dosed. Would consider tapering these quickly 5. Unsure of etiology of hypotension, patient had no white count and no fever on admit, mild bump in white count now low grade temps. UA had trace Leukocyte esterace but negative nitrite. Abx already administered, follow up cultures 6. Wean Levophed for MAPs greater than 65 7. Recommend obtaining echo to evaluate left and right sided pressures. CCT 31 minutes.
[2017-05-09] MEDS ORDERED: NACL 0.9% 100 ML IV PRN ×4 (11:44→17:30)
--- NOTE | 2017-05-09 12:58 | History and Physical Report ---
CHIEF COMPLAINT: Generalized weakness. OTHER COMPLAINT: Include abdominal pain. HISTORY OF PRESENT ILLNESS: The patient is a 56-year-old female brought in by EMS because family said that the patient feels very weak and according to the Emergency Room documentation the patient was found to be somnolent at the time of Emergency Room doctors elevation and subsequently the patient was intubated to protect the airway. At the time of my evaluation, the patient was unable to provide information and the family members were not arrived, so history was obtained mainly from the Emergency Room documentation and the patient last time intubation was noted to be hypotensive with a low grade fever and tachycardic as well as sepsis was noted and the patient was started on IV antibiotic. PAST MEDICAL HISTORY: Pertinent for hypertension, cerebrovascular accident, coronary artery disease, congestive heart failure, diabetes mellitus, end-stage renal disease, on dialysis. PAST SURGICAL HISTORY: Pertinent for coronary stent placement, cholecystectomy, dialysis fistula placement in the left upper extremity. FAMILY HISTORY: Noncontributory. SOCIAL HISTORY: The patient smokes cigarettes. Does not drink alcohol and does not use illicit drug. MEDICATIONS: The patient is on the following medications: Aspirin 81 mg daily, Lipitor 40 mg by mouth daily, Sensipar 30 mg by mouth twice daily, Flexeril 10 mg by mouth 3 times daily, Lasix 40 mg by mouth daily, Neurontin 300 mg by mouth every 8 hours, lisinopril 20 mg by mouth daily, omeprazole 20 mg by mouth daily, Phenergan 25 mg by mouth every 6 hours as needed for nausea and vomiting, Zoloft 50 mg by mouth daily, sevelamer carbonate Renvela 800 mg by mouth 3 times daily with meals, ticagrelor or Brilinta 90 mg p.o. b.i.d., Amlodipine 5 mg by mouth daily, trazodone 15 mg at bedtime. ALLERGIES: The patient is allergic to SULFA DRUGS. REVIEW OF SYSTEMS: CONSTITUTIONAL: There is no fever, no chills, no diaphoresis. HEENT: There is no headache or sore throat. CARDIOVASCULAR SYSTEM: There is no chest pain or orthopnea. RESPIRATORY SYSTEM: There is no shortness of breath or cough. GASTROINTESTINAL SYSTEM: There is no nausea, no vomiting; abdominal pain present. No diarrhea or constipation. NEUROLOGICAL SYSTEM: Generalized weakness noted, somnolent noted. MUSCULOSKELETAL SYSTEM: There is no joint pain or swelling. DERMATOLOGICAL SYSTEM: There is no skin rash of itching. GENITOURINARY SYSTEM: There is dysuria, but no hematuria or flank pain. Rest of system review is normal. PHYSICAL EXAMINATION: GENERAL: At the time of exam, the patient was found to be intubated, sedated and mechanically ventilated and not in acute distress. VITAL SIGNS: Shows normal temperature with pulse of 95, respirations 18 by mechanical ventilation and endotracheal tube, blood pressure 90/48, O2 sat of 100% on oxygen via mechanical ventilation. HEENT: Shows pupils are round and reactive to light and accommodative. NECK: Supple with no JVD or carotid bruit. CARDIOVASCULAR SYSTEM: Showed normal first and second heart sounds with no gallops or murmurs. RESPIRATORY SYSTEM: Show good air entry on both sides of the lung via endotracheal tube and mechanical ventilation with bilateral scaphoid crackles. GASTROINTESTINAL SYSTEM: Show abdomen to be full, soft, nontender with no organomegaly or rigidity. NEUROLOGICAL SYSTEM: Shows no focal deficits. MUSCULOSKELETAL SYSTEM: Show no joint swelling or tenderness. DERMATOLOGICAL SYSTEM: Show no skin rash. GENITOURINARY SYSTEM: Showing no costovertebral angle tenderness. PERTINENT LABORATORY AND IMAGING STUDIES: The patient has CBC done that shows normal white count with low hemoglobin of 8.9 and low hematocrit of 28.1 with elevated MCV of 111. CBC differential showed elevated neutrophil count of 92% and no significant band. Coagulation studies show high PT of 15.2, INR of 1.14. ABG shows a pH of 7.27 with a pCO2 of 56.5, low pO2 of about 30 and this was done on FiO2 of 70. Repeat ABG showed pH of 7.28 with a slightly elevated pCO2 of 49.9 and high pO2 of 249 with O2 sat of 100% and FiO2 of 70. The patient's chemistry shows normal sodium, high chloride of 107.8, normal potassium level, elevated BUN of 22, high creatinine of 2.6. The patient has end-stage renal disease, on dialysis. Also, the patient had elevated lactic acid level of 2.5 with high glucose level of 202, and low calcium of 7.3. The patient's albumin level is low with a value of 2.9. Urinalysis show high urine wbc's of 16, with trace leukocyte esterase. Toxicology result showed unremarkable salicylate and acetaminophen level. IMAGING STUDIES: The patient had chest x-ray done that shows normal heart size with endotracheal tube above the che. The patient's CT of the chest shows CHF picture with area of alveolar density seen in the lungs that could be associated with pulmonary congestion or aspiration pneumonia. Radiology said that some of the densities may be due to hypoventilation and the radiologist said that the endotracheal tube terminates at the che and will likely benefit from being withdrawn 1.5 to 2 cm. The patient's cervical spine CT shows no C-spine fracture, but there are multiple disk bulges and protrusions seen in the cervical spine. The patient had a CT of the head that shows no acute intracranial abnormality, but right sphenoid and bilateral maxillary acute sinusitis was noted. Also, the patient had an abdominal and pelvic CT without contrast done that shows infiltrate visualized in bilateral lower lung field. There is finding of moderate cardiomegaly and moderate ascites. DIAGNOSES: 1. Bilateral pneumonia. 2. Respiratory failure needing intubation and mechanical ventilation. 3. Sepsis. 4. Hypertension. 5. Anemia. 6. Maxillary sinusitis and ____ ascites. PLAN: The patient will be admitted to ICU and will continue IV cefepime 1 gram q. 8 hours as well as IV vancomycin with Pharmacy to dose. The patient has already had a Critical Care consult with Dr. Miller, put in by Emergency Room physician. The patient will have Nephrology consult with Dr. Benigno Tyler for end-stage renal disease and will have basic metabolic panel and CBC checked in the morning. The patient will also have cardiac enzymes involving troponin, total CK, and CK-MB checked q. 6 hours x 2 more levels. The patient will be on Tylenol 650 mg rectally every 4 hours for fever and headache and will continue IV Levophed protocol, which will be titrated to keep mean arterial pressure at 65. The patient will be on IV Zofran 4 mg every 8 hours for nausea and vomiting and we will continue the fentanyl protocol started in the Emergency Room for sedation because of mechanical ventilation. The patient will have respiratory therapy to handle the ventilator and the necessary breathing treatment. The patient's home medications have not been reconciled yet and would be reconciled and started after the Critical Care and Nephrology consults. JOB# [id number] OCN/NTS
[2017-05-09 14:53] LABS: Creatine Kinase MB 2.2 ng/mL (0.0-4.0)
--- NOTE | 2017-05-09 15:34 | Consultation ---
History of Present Illness - Reason for Consult end stage renal disease - History of Present Illness Ms Rosen is a 56 y/o lady with a PMH of ESRD on HD via LUE AVF, HTN, HLD, ACD , 2HPT, DM2, CHF who came to the [facility] ER with AMS and had to be intubated for airway protection. Pt was found to have volume overload on CXR. She got extubated this morning and is currently on Venturi mask. She is somewhat awake but very lethargic and cannot give any history. She does not know which HD unit she goes to or when are her HD days or when was she last dialyzed. Pt is on levophed for low BP. ROS: Unable to obtain as pt lethargic. Past History Past Medical History: ESRD, hypertension, hyperlipidemia, ACD, 2HPT, DM2, CHF Past Surgical History: Other (fistula placement) Social history: other (unable to obtain) Past History Past Medical History: ESRD, hypertension, hyperlipidemia Past Surgical History: Other (fistula placement) Social history: other (unable to obtain) Medications and Allergies Allergies Allergy/AdvReac Type Severity Reaction Status Date / Time Sulfa (Sulfonamide Allergy Unknown Verified 05/08/17 20:32 Antibiotics) Home Medications Medication Instructions Recorded Confirmed Last Taken Type Aspirin [Aspirin BABY CHEW TAB] 81 mg PO QDAY 02/17/16 05/28/16 05/26/16 History AtorvaSTATin [Lipitor] 40 mg PO DAILY 02/17/16 05/28/16 05/26/16 History Cinacalcet [Sensipar] 30 mg PO BID 02/17/16 05/28/16 05/26/16 History Cyclobenzaprine [Flexeril 10 MG 10 mg PO TID PRN 02/17/16 05/28/16 05/26/16 History TAB] Furosemide [Lasix TAB] 40 mg PO QDAY 02/17/16 05/28/16 05/26/16 History Gabapentin [Neurontin] 300 mg PO Q8HR 02/17/16 05/28/16 05/26/16 History Lisinopril [Zestril TAB] 20 mg PO QDAY 02/17/16 05/28/16 05/26/16 History Omeprazole 20 mg PO DAILY 02/17/16 05/28/16 05/26/16 History Promethazine [Phenergan TAB] 25 mg PO Q6HR PRN 02/17/16 05/28/16 05/26/16 History Sertraline [Zoloft] 50 mg PO QDAY 02/17/16 05/28/16 05/26/16 History Sevelamer Carbonate [Renvela] 800 mg PO TIDWM 02/17/16 05/28/16 05/26/16 History Ticagrelor [Brilinta] 90 mg PO BID 02/17/16 05/28/16 05/26/16 History amLODIPine [Norvasc] 5 mg PO DAILY 02/17/16 05/28/16 05/26/16 History traZODone [Desyrel] 50 mg PO QHS 02/17/16 05/28/16 05/26/16 History Albuterol Sulfate [Ventolin HFA] 2 puff IH Q4H PRN #1 pump 04/11/16 05/28/16 Rx Prednisone [predniSONE 5 mg (6-Day 5 mg PO .TAPER #1 tab.ds.pk 04/11/1605/26/16 Rx Pack, 21 Tabs)] Active Meds: Active Medications Acetaminophen (Tylenol) 650 mg OR Q4H PRN PRN Reason: Pain, Mild (1-3) Heparin Sodium (Porcine) (Heparin) 5,000 unit SUB-Q Q12HR TATIANA Last Admin: 05/09/17 10:23 Dose: 5,000 unit Hydrophilic Ointment (Vaseline Lip Therapy) 1 applic TP Q2HR PRN PRN Reason: Dry Lips Fentanyl Citrate (Fentanyl Drip Premix) 2,000 mcg in 100 mls @ 3.402 mls/hr IV TITR TATIANA; 1 MCG/KG/HR PRN Reason: Protocol Last Titration: 05/09/17 07:00 Dose: 0 mcg/kg/hr, 0 mls/hr Norepinephrine (Levophed Drip 4 Mg/Ns 250 Ml) 4 mg in 250 mls @ 7.5 mls/hr IV TITR TATIANA; 2 MCG/MIN PRN Reason: Protocol Sodium Chloride (Nacl 0.9%) 100 mls @ 999 mls/hr IV GISSELL PRN PRN Reason: Hypotension Sodium Chloride (Nacl 0.9%) 100 mls @ 999 mls/hr IV GISSELL PRN PRN Reason: Hypotension Sodium Chloride (Nacl 0.9%) 100 mls @ 999 mls/hr IV GISSELL PRN PRN Reason: Hypotension Lorazepam (Ativan) 4 mg IV Q4HR PRN PRN Reason: Agitation Multi-Ingred Cream/Lotion/Oil/Oint (Artificial Tears Ophth Oint) 1 applic OU Q4HR PRN PRN Reason: Dry Eye(s) Ondansetron HCl (Zofran) 4 mg IV Q8H PRN PRN Reason: Nausea And Vomiting Sodium Chloride (Nacl 0.9% 500 Ml) 1 ml IV DIRECT TATIANA Vancomycin HCl (Vancomycin Pharmacy To Dose) 1 each IV PKCONSULT TATIANA PRN Reason: Protocol Exam - Vital Signs Vital signs: Vital Signs Pulse Resp 96 H 26 H 05/08/17 20:30 05/08/17 20:30 - Physical Exam Narrative exam: GE: Lethargic, on venturi mask HEENT: PERRLA Neck: No JVD CVS: RRR Chest: BL Crackles Abd: Soft/ND, BS+ Ext: No cce, LUE AVF with good thrill Neuro: Lethargic Results - Lab Results 05/09/17 06:00 05/09/17 06:00 Most recent lab results Calcium 7.7 mg/dL (8.4-10.2) L 05/09/17 06:00 Assessment and Plan ESRD on hemodialysis: Volume overload with pulmonary edema: -Via LUE AVF -HD today, HD tomorrow as well. Levophed PRN to keep MAP>65 during HD -Eval for HD need daily -Renally dose all meds -Check CBC, BMP, Mg, Phos daily Hypoxic Respiratory failure: -Possibly from Volume overload vs PNA -HD today and tommorow with UF -s/p extubation this am, pulm on board Sepsis possibly due to urinary tract infection/Pneumonia Leukocytosis: -Follow Cx -On Abx -Per primary -On levophed Systolic acute on chronic congestive heart failure: -UF with HD -Per primary Diabetes mellitus type 2: -Per primary Essential Hypertension, chronic currently hypotensive: -BP meds on hold as currently hypotensive from Sepsis and on levophed. Hyperlipidemia, chronic: -Continue statin -Target LDL <70 Anemia of chronic disease due to ESRD: -Epogen to keep Hg 10-12 Secondary hyperparathyroidism: -Can continue home sensipar when able to eat. Plan d/w HD RN and upsetter helper at bedside. Critical Care time: 35 minutes With this note, I want to thank Dr Yeboah for allowing me to participate in the care of Ms Rosen i will continue to follow her closely with you. Thank you for the consult. Pillo Goodman MD Nephrology, Hypertension, Dialysis, Transplantation Phone no: [phone]
[2017-05-09] MEDS ORDERED: ROCEPHIN IV SCH (15:45)
[2017-05-09 17:59] LABS: Hepatitis A Antibody IgM Non-Reactive (NonReactive); Hepatitis B Core IgM Non-Reactive (NonReactive); Hepatitis B Surface Antigen Non-Reactive (Negative); Hepatitis C Virus Antibody Reactive (NonReactive)
[2017-05-09] MEDS: cefTRIAXone 1 GM in NACL 0.9% 20 ML IV SCH (19:45)
--- NOTE | 2017-05-10 03:12 | XRay Report ---
FINAL REPORT EXAM: XR CHEST 1V AP HISTORY: follow up respiratory failure COMPARISON: May 08, 2017. FINDINGS: Frontal view(s) of the chest obtained. Stable mild cardiac enlargement. ET tube is not visualized and may have been removed. NG tube remains in place. Retraction of left IJ line. The distal tip now projects over left internal jugular vein/innominate vein region. Persistent patchy opacities at the lung bases. No large effusion or pneumothorax. IMPRESSION: ET tube is no longer visualized and may have been removed. NG tube remains in place. Retraction of left IJ line. Stable patchy opacities at the lung bases concerning for combination of atelectasis and pneumonia.
--- NOTE | 2017-05-10 08:12 | Progress Note ---
Assessment and Plan Assessment and plan: --Metabolic encephalopathy at the time of admission; intubated to protect the airway Now successfully extubated, continue oxygen titrate O2 sats to more than 90% and supportive care --Bilateral pneumonia/atelectasis Empiric antibiotics follow cultures oxygen as needed --Sepsis/possible septic shock; off Levophed, blood pressure is reasonable level --Positive cardiac enzymes; probably nonspecific secondary to end-stage renal disease However patient has significant coronary artery disease, consult cardiology --Coronary artery disease s/p PCI : Continue current cardiac medications --Cardiomyopathy ejection fraction of 40% 04/2016 --End-stage renal disease on hemodialysis, nephrology following HD per schedule --Hypertension; hold antihypertensives, blood pressure is on the lower range --?Type 2 diabetes mellitus; Accu-Chek sliding scale coverage and ADA diet and insulin as needed A1c is less than 6 --Dyslipidemia; and new lipid-lowering medications --DVT prophylaxis; heparin renal dose Patient is stable to be transferred out of ICU to telemetry Follow cardiology evaluation and recommendations Possible discharge in 1-2 days if stable History Interval history: Since seen and examined in ICU this morning medical records reviewed Was extubated yesterday, receiving hemodialysis at bedside On Ventimask, saturating well, alert and awake responding appropriately Vital signs reviewed Hospitalist Physical - Constitutional Vitals: Temp Pulse Resp BP Pulse Ox 98.8 F 93 H 27 H 93/58 98 05/10/17 03:44 05/10/17 07:30 05/10/17 07:30 05/10/17 07:30 05/10/17 07:30 General appearance: Present: no acute distress, well-nourished - EENT Eyes: Present: PERRL, EOM intact - Neck Neck: Present: supple, normal ROM - Respiratory Respiratory effort: normal Respiratory: bilateral: diminished, rales, negative: rhonchi, wheezing - Cardiovascular Rhythm: regular Heart Sounds: Present: S1 & S2 - Extremities Extremities: no ischemia, No edema - Abdominal General gastrointestinal: soft, non-tender, non-distended, normal bowel sounds - Integumentary Integumentary: Present: clear, warm - Psychiatric Psychiatric: appropriate mood/affect, cooperative - Neurologic Neurologic: CNII-XII intact, moves all extremities Results - Labs CBC & Chem 7: 05/09/17 06:00 05/09/17 06:00 Labs: Laboratory Last Values WBC 11.7 K/mm3 (4.5-11.0) H 05/09/17 06:00 RBC 2.67 M/mm3 (3.65-5.03) L 05/09/17 06:00 Hgb 9.3 gm/dl (10.1-14.3) L 05/09/17 06:00 Hct 30.0 % (30.3-42.9) L 05/09/17 06:00 MCV 112 fl (79-97) H 05/09/17 06:00 MCH 35 pg (28-32) H 05/09/17 06:00 MCHC 31 % (30-34) 05/09/17 06:00 RDW 24.4 % (13.2-15.2) H 05/09/17 06:00 Plt Count 280 K/mm3 (140-440) 05/09/17 06:00 Lymph % (Auto) Welding Machine Operator Electron Beam 05/08/17 21:25 [place] % (Auto) Welding Machine Operator Electron Beam 05/08/17 21:25 Eos % (Auto) Welding Machine Operator Electron Beam 05/08/17 21:25 Baso % (Auto) Welding Machine Operator Electron Beam 05/08/17 21:25 Lymph # Welding Machine Operator Electron Beam 05/08/17 21:25 [place] # Welding Machine Operator Electron Beam 05/08/17 21:25 Eos # Welding Machine Operator Electron Beam 05/08/17 21:25 Baso # Welding Machine Operator Electron Beam 05/08/17 21:25 Add Manual Diff Complete 05/08/17 21:25 Total Counted 100 05/08/17 21:25 Seg Neutrophils % Welding Machine Operator Electron Beam 05/08/17 21:25 Seg Neuts % (Manual) 92.0 % (40.0-70.0) H 05/08/17 21:25 Band Neutrophils % 0 % 05/08/17 21:25 Lymphocytes % (Manual) 6.0 % (13.4-35.0) L 05/08/17 21:25 Reactive Lymphs % (Man) 0 % 05/08/17 21:25 Monocytes % (Manual) 2.0 % (0.0-7.3) 05/08/17 21:25 Eosinophils % (Manual) 0 % (0.0-4.3) 05/08/17 21:25 Basophils % (Manual) 0 % (0.0-1.8) 05/08/17 21:25 Metamyelocytes % 0 % 05/08/17 21:25 Myelocytes % 0 % 05/08/17 21:25 Promyelocytes % 0 % 05/08/17 21:25 Blast Cells % 0 % 05/08/17 21:25 Nucleated RBC % Not Reportable 05/08/17 21:25 Seg Neutrophils # Welding Machine Operator Electron Beam 05/08/17 21:25 Seg Neutrophils # Man 9.3 K/mm3 (1.8-7.7) H 05/08/17 21:25 Band Neutrophils # 0.0 K/mm3 05/08/17 21:25 Lymphocytes # (Manual) 0.6 K/mm3 (1.2-5.4) L 05/08/17 21:25 Abs React Lymphs (Man) 0.0 K/mm3 05/08/17 21:25 Monocytes # (Manual) 0.2 K/mm3 (0.0-0.8) 05/08/17 21:25 Eosinophils # (Manual) 0.0 K/mm3 (0.0-0.4) 05/08/17 21:25 Basophils # (Manual) 0.0 K/mm3 (0.0-0.1) 05/08/17 21:25 Metamyelocytes # 0.0 K/mm3 05/08/17 21:25 Myelocytes # 0.0 K/mm3 05/08/17 21:25 Promyelocytes # 0.0 K/mm3 05/08/17 21:25 Blast Cells # 0.0 K/mm3 05/08/17 21:25 WBC Morphology Not Reportable 05/08/17 21:25 Hypersegmented Neuts Not Reportable 05/08/17 21:25 Hyposegmented Neuts Not Reportable 05/08/17 21:25 Hypogranular Neuts Not Reportable 05/08/17 21:25 Smudge Cells Not Reportable 05/08/17 21:25 Toxic Granulation Not Reportable 05/08/17 21:25 Toxic Vacuolation Not Reportable 05/08/17 21:25 Dohle Bodies Not Reportable 05/08/17 21:25 Pelger-Huet Anomaly Not Reportable 05/08/17 21:25 Anthony Rods Not Reportable 05/08/17 21:25 Platelet Estimate Consistent w auto 05/08/17 21:25 Clumped Platelets Not Reportable 05/08/17 21:25 Plt Clumps, EDTA Not Reportable 05/08/17 21:25 Large Platelets Not Reportable 05/08/17 21:25 Giant Platelets Not Reportable 05/08/17 21:25 Platelet Satelliting Not Reportable 05/08/17 21:25 Plt Morphology Comment Not Reportable 05/08/17 21:25 RBC Morphology Not Reportable 05/08/17 21:25 Dimorphic RBCs Yes 05/08/17 21:25 Polychromasia 1+ 05/08/17 21:25 Hypochromasia Not Reportable 05/08/17 21:25 Poikilocytosis Not Reportable 05/08/17 21:25 Anisocytosis Not Reportable 05/08/17 21:25 Microcytosis 1+ 05/08/17 21:25 Macrocytosis 1+ 05/08/17 21:25 Spherocytes Not Reportable 05/08/17 21:25 Pappenheimer Bodies Not Reportable 05/08/17 21:25 Sickle Cells Not Reportable 05/08/17 21:25 Target Cells Not Reportable 05/08/17 21:25 Tear Drop Cells Few 05/08/17 21:25 Ovalocytes Not Reportable 05/08/17 21:25 Helmet Cells Not Reportable 05/08/17 21:25 [place] Bodies Not Reportable 05/08/17 21:25 [place] Rings Not Reportable 05/08/17 21:25 Anthony Cells Not Reportable 05/08/17 21:25 Bite Cells Not Reportable 05/08/17 21:25 Crenated Cell Not Reportable 05/08/17 21:25 Elliptocytes Not Reportable 05/08/17 21:25 Acanthocytes (Spur) Not Reportable 05/08/17 21:25 Rouleaux Not Reportable 05/08/17 21:25 Hemoglobin C Crystals Not Reportable 05/08/17 21:25 Schistocytes Not Reportable 05/08/17 21:25 Malaria parasites Not Reportable 05/08/17 21:25 Jose Bodies Not Reportable 05/08/17 21:25 Hem Pathologist Commnt No 05/08/17 21:25 PT 15.2 Sec. (12.2-14.9) H 05/08/17 21:25 INR 1.14 (0.87-1.13) H 05/08/17 21:25 POC ABG pH 7.323 (7.35-7.45) L 05/09/17 08:52 POC ABG pCO2 41.8 (35-45) 05/09/17 08:52 POC ABG pO2 143 (80-105) H 05/09/17 08:52 POC ABG HCO3 21.7 05/09/17 08:52 POC ABG Total CO2 23 05/09/17 08:52 POC ABG O2 Sat 99 05/09/17 08:52 POC ABG Base Excess -4 05/09/17 08:52 FiO2 60 % 05/09/17 08:52 Sodium 145 mmol/L (137-145) 05/09/17 06:00 Potassium 4.9 mmol/L (3.6-5.0) 05/09/17 06:00 Chloride 106.8 mmol/L (98-107) 05/09/17 06:00 Carbon Dioxide 22 mmol/L (22-30) 05/09/17 06:00 Anion Gap 21 mmol/L 05/09/17 06:00 BUN 24 mg/dL (7-17) H 05/09/17 06:00 Creatinine 2.9 mg/dL (0.7-1.2) H 05/09/17 06:00 Estimated GFR 17 ml/min 05/09/17 06:00 BUN/Creatinine Ratio 8 % 05/09/17 06:00 Glucose 172 mg/dL (65-100) H 05/09/17 06:00 Lactic Acid 1.10 mmol/L (0.7-2.0) 05/10/17 05:58 Calcium 7.7 mg/dL (8.4-10.2) L 05/09/17 06:00 Total Bilirubin 0.60 mg/dL (0.1-1.2) 05/08/17 22:42 AST 22 units/L (5-40) 05/08/17 22:42 ALT 18 units/L (7-56) 05/08/17 22:42 Alkaline Phosphatase 258 units/L (35-129) H 05/08/17 22:42 Total Creatine Kinase 24 units/L (30-135) L 05/09/17 14:00 CK-MB (CK-2) 2.2 ng/mL (0.0-4.0) 05/09/17 14:00 CK-MB (CK-2) Rel Index 9.1 (0-4) H 05/09/17 14:00 Troponin T 0.654 ng/mL (0.00-0.029) H* 05/09/17 14:00 Total Protein 5.2 g/dL (6.3-8.2) L 05/08/17 22:42 Albumin 2.9 g/dL (3.9-5) L 05/08/17 22:42 Albumin/Globulin Ratio 1.3 % 05/08/17 22:42 Triglycerides 125 mg/dL (2-149) 05/09/17 06:00 Cholesterol 73 mg/dL (50-199) 05/09/17 06:00 LDL Cholesterol Direct 21 mg/dL (50-130) L 05/09/17 06:00 HDL Cholesterol 27 mg/dL (40-59) L 05/09/17 06:00 Cholesterol/HDL Ratio 2.70 % 05/09/17 06:00 Urine Color Yellow (Yellow) 05/08/17 Unknown Urine Turbidity Clear (Clear) 05/08/17 Unknown Urine pH 7.0 (5.0-7.0) 05/08/17 Unknown Ur Specific [place] 1.014 (1.003-1.030) 05/08/17 Unknown Urine Protein 100 mg/dl mg/dL (Negative) 05/08/17 Unknown Urine Glucose (UA) 150 mg/dL (Negative) 05/08/17 Unknown Urine Ketones Neg mg/dL (Negative) 05/08/17 Unknown Urine Blood Sm (Negative) 05/08/17 Unknown Urine Nitrite Neg (Negative) 05/08/17 Unknown Urine Bilirubin Neg (Negative) 05/08/17 Unknown Urine Urobilinogen < 2.0 mg/dL (<2.0) 05/08/17 Unknown Ur Leukocyte Esterase Tr (Negative) 05/08/17 Unknown Urine WBC (Auto) 16.0 /HPF (0.0-6.0) H 05/08/17 Unknown Urine RBC (Auto) 3.0 /HPF (0.0-6.0) 05/08/17 Unknown U Epithel Cells (Auto) < 1.0 /HPF (0-13.0) 05/08/17 Unknown Urine Bacteria (Auto) 1+ /HPF (Negative) 05/08/17 Unknown Salicylates < 0.3 mg/dL (2.8-20.0) L 05/08/17 21:35 Acetaminophen < 15.0 ug/mL (10.0-30.0) 05/08/17 21:35 Hepatitis A IgM Ab Non-reactive (NonReactive) 05/09/17 17:00 Hep Bs Antigen Non-reactive (Negative) 05/09/17 17:00 Hep B Core IgM Ab Non-reactive (NonReactive) 05/09/17 17:00 Hepatitis C Antibody Reactive (NonReactive) A 05/09/17 17:00
[2017-05-10] MEDS ORDERED: PROVENTIL IH PRN (09:34)
--- NOTE | 2017-05-10 09:50 | Progress Note ---
Assessment and Plan Acute respiratory failure CHF with decompensation Pneumonia/atelectasis on CXR ESRD decompensation Rec Continue nebulizer therapy every 4 hours. Continue antibiotics and monitor culture. Hemodialysis per nephrology Monitor troponins, cardiac status and EKG. Subjective Date of service: 05/10/17 Interval history: Patient reports some discomfort for but appears to be better this morning. Currently on BiPAP. No active expectoration. Objective Vital Signs - 12hr 05/09/17 05/09/17 05/09/17 22:00 22:15 22:30 Temperature Pulse Rate 105 H 105 H 105 H Respiratory 35 H 31 H 30 H Rate Blood Pressure 100/62 98/62 108/63 O2 Sat by Pulse 100 100 98 Oximetry 05/09/17 05/09/17 05/09/17 22:45 22:46 23:00 Temperature Pulse Rate 103 H 102 H 102 H Respiratory 29 H 25 H 26 H Rate Blood Pressure 88/56 88/56 96/56 O2 Sat by Pulse 100 100 100 Oximetry 05/09/17 05/09/17 05/09/17 23:12 23:15 23:30 Temperature 99.3 F Pulse Rate 103 H 101 H Respiratory 33 H 27 H Rate Blood Pressure 105/57 101/56 O2 Sat by Pulse 100 99 Oximetry 05/09/17 05/09/17 05/10/17 23:45 23:58 00:00 Temperature Pulse Rate 100 H 100 H 98 H Respiratory 34 H 22 25 H Rate Blood Pressure 90/48 105/57 86/48 O2 Sat by Pulse 100 100 99 Oximetry 05/10/17 05/10/17 05/10/17 00:15 00:30 00:45 Temperature Pulse Rate 99 H 99 H 97 H Respiratory 26 H 32 H 29 H Rate Blood Pressure 92/51 99/55 91/47 O2 Sat by Pulse 99 100 100 Oximetry 05/10/17 05/10/17 05/10/17 01:00 01:15 01:30 Temperature Pulse Rate 97 H 99 H 99 H Respiratory 27 H 30 H 28 H Rate Blood Pressure 83/45 95/56 99/56 O2 Sat by Pulse 100 100 100 Oximetry 05/10/17 05/10/17 05/10/17 01:45 02:00 02:15 Temperature Pulse Rate 97 H 95 H Respiratory 27 H 29 H Rate Blood Pressure 89/50 102/54 97/53 O2 Sat by Pulse 99 99 99 Oximetry 05/10/17 05/10/17 05/10/17 02:30 02:46 03:00 Temperature Pulse Rate 96 H 96 H 96 H Respiratory 31 H 28 H 22 Rate Blood Pressure 93/49 93/49 93/54 O2 Sat by Pulse 100 100 97 Oximetry 05/10/17 05/10/17 05/10/17 03:16 03:30 03:44 Temperature 98.8 F Pulse Rate 94 H 94 H Respiratory 27 H 21 Rate Blood Pressure 93/54 91/50 O2 Sat by Pulse 98 98 Oximetry 05/10/17 05/10/17 05/10/17 03:46 04:00 04:16 Temperature Pulse Rate 96 H 94 H 95 H Respiratory 23 27 H 28 H Rate Blood Pressure 91/50 95/57 95/57 O2 Sat by Pulse 97 99 98 Oximetry 05/10/17 05/10/17 05/10/17 04:30 04:46 05:00 Temperature Pulse Rate 94 H 94 H 93 H Respiratory 28 H 24 25 H Rate Blood Pressure 96/55 96/55 94/52 O2 Sat by Pulse 99 99 99 Oximetry 05/10/17 05/10/17 05/10/17 05:16 05:30 05:46 Temperature Pulse Rate 93 H 93 H 94 H Respiratory 25 H 25 H 28 H Rate Blood Pressure 94/52 94/54 94/54 O2 Sat by Pulse 99 99 99 Oximetry 05/10/17 05/10/17 05/10/17 06:00 06:16 06:30 Temperature Pulse Rate 95 H 94 H 93 H Respiratory 31 H 28 H 20 Rate Blood Pressure 92/56 92/56 95/56 O2 Sat by Pulse 99 99 98 Oximetry 05/10/17 05/10/17 05/10/17 06:46 07:00 07:16 Temperature Pulse Rate 96 H 97 H 95 H Respiratory 15 34 H 15 Rate Blood Pressure 95/56 93/57 93/57 O2 Sat by Pulse 92 97 Oximetry 05/10/17 05/10/17 05/10/17 07:30 07:46 08:00 Temperature 97.6 F Pulse Rate 93 H 94 H 93 H Respiratory 27 H 30 H 26 H Rate Blood Pressure 93/58 93/58 90/55 O2 Sat by Pulse 98 97 99 Oximetry 05/10/17 05/10/17 05/10/17 08:16 08:30 08:39 Temperature Pulse Rate 93 H 93 H Respiratory 25 H 26 H Rate Blood Pressure 90/55 99/57 O2 Sat by Pulse 97 98 99 Oximetry Constitutional: alert, appears uncomfortable (awake while intubated and coughing ) Neck: supple, other (left IJ) Effort: normal Ascultation: Bilateral: wheezes, rales Percussion: Bilateral: not dull Cardiovascular: regular rate and rhythm Gastrointestinal: normoactive bowel sounds, soft, non-tender Integumentary: other (bruits on left forehead) CBC and BMP: 05/11/17 06:09 05/11/17 06:09 ABG, PT/INR, D-dimer: ABG POC ABG pH 7.323 (7.35-7.45) L 05/09/17 08:52 POC ABG pCO2 41.8 (35-45) 05/09/17 08:52 POC ABG pO2 143 (80-105) H 05/09/17 08:52 POC ABG HCO3 21.7 05/09/17 08:52 POC ABG Total CO2 23 05/09/17 08:52 POC ABG O2 Sat 99 05/09/17 08:52 PT/INR, D-dimer PT 15.2 Sec. (12.2-14.9) H 05/08/17 21:25 INR 1.14 (0.87-1.13) H 05/08/17 21:25 Abnormal lab findings: Abnormal Labs 05/08/17 05/08/17 05/08/17 21:25 21:25 21:25 WBC RBC 2.55 L Hgb 8.9 L Hct 28.1 L MCV 111 H MCH 35 H RDW 25.4 H Seg Neuts % (Manual) 92.0 H Lymphocytes % (Manual) 6.0 L Seg Neutrophils # Man 9.3 H Lymphocytes # (Manual) 0.6 L PT 15.2 H INR 1.14 H POC ABG pH POC ABG pCO2 POC ABG pO2 Chloride BUN Creatinine Glucose Lactic Acid 2.50 H* Calcium Alkaline Phosphatase Total Creatine Kinase CK-MB (CK-2) Rel Index Troponin T Total Protein Albumin LDL Cholesterol Direct HDL Cholesterol Urine WBC (Auto) Salicylates Hepatitis C Antibody 05/08/17 05/08/17 05/08/17 21:35 22:04 22:42 WBC RBC Hgb Hct MCV MCH RDW Seg Neuts % (Manual) Lymphocytes % (Manual) Seg Neutrophils # Man Lymphocytes # (Manual) PT INR POC ABG pH 7.271 L POC ABG pCO2 56.5 H POC ABG pO2 30 L Chloride 107.8 H BUN 22 H Creatinine 2.6 H Glucose 202 H Lactic Acid Calcium 7.3 L Alkaline Phosphatase 258 H Total Creatine Kinase CK-MB (CK-2) Rel Index Troponin T Total Protein 5.2 L Albumin 2.9 L LDL Cholesterol Direct HDL Cholesterol Urine WBC (Auto) Salicylates < 0.3 L Hepatitis C Antibody 05/08/17 05/09/17 05/09/17 Unknown 00:24 06:00 WBC RBC Hgb Hct MCV MCH RDW Seg Neuts % (Manual) Lymphocytes % (Manual) Seg Neutrophils # Man Lymphocytes # (Manual) PT INR POC ABG pH 7.283 L POC ABG pCO2 49.9 H POC ABG pO2 249 H Chloride BUN Creatinine Glucose Lactic Acid Calcium Alkaline Phosphatase Total Creatine Kinase 19 L CK-MB (CK-2) Rel Index 11.0 H Troponin T 0.612 H* Total Protein Albumin LDL Cholesterol Direct 21 L HDL Cholesterol 27 L Urine WBC (Auto) 16.0 H Salicylates Hepatitis C Antibody 05/09/17 05/09/17 05/09/17 06:00 06:00 08:52 WBC 11.7 H RBC 2.67 L Hgb 9.3 L Hct 30.0 L MCV 112 H MCH 35 H RDW 24.4 H Seg Neuts % (Manual) Lymphocytes % (Manual) Seg Neutrophils # Man Lymphocytes # (Manual) PT INR POC ABG pH 7.323 L POC ABG pCO2 POC ABG pO2 143 H Chloride BUN 24 H Creatinine 2.9 H Glucose 172 H Lactic Acid Calcium 7.7 L Alkaline Phosphatase Total Creatine Kinase CK-MB (CK-2) Rel Index Troponin T Total Protein Albumin LDL Cholesterol Direct HDL Cholesterol Urine WBC (Auto) Salicylates Hepatitis C Antibody 05/09/17 05/09/17 14:00 17:00 WBC RBC Hgb Hct MCV MCH RDW Seg Neuts % (Manual) Lymphocytes % (Manual) Seg Neutrophils # Man Lymphocytes # (Manual) PT INR POC ABG pH POC ABG pCO2 POC ABG pO2 Chloride BUN Creatinine Glucose Lactic Acid Calcium Alkaline Phosphatase Total Creatine Kinase 24 L CK-MB (CK-2) Rel Index 9.1 H Troponin T 0.654 H* Total Protein Albumin LDL Cholesterol Direct HDL Cholesterol Urine WBC (Auto) Salicylates Hepatitis C Antibody Reactive A Chest x-ray: report reviewed, image reviewed
[2017-05-10] MEDS ORDERED: NORVASC PO SCH (10:00)
[2017-05-10] MEDS: RENVELA PO SCH ×2 (11:11→20:49)
[2017-05-10] MEDS: HEPARIN SUB-Q SCH ×2 (11:12→21:56)
[2017-05-10] MEDS: SENSIPAR PO SCH ×2 (11:12→21:58)
[2017-05-10] MEDS: BRILINTA PO SCH ×2 (11:12→21:56)
[2017-05-10] MEDS: BABY ASPIRIN PO SCH (11:12)
--- NOTE | 2017-05-10 15:35 | Progress Note ---
Assessment and Plan - Patient Problems (1) ESRD (end stage renal disease) Current Visit: Yes Status: Chronic Plan to address problem: Hemodialysis again today for UF and clearance and also tomorrow as well Fluid restriction of 1 liter per day Renally dose medications Monitor I/O's Obtain daily weights Assess dialysis needs daily (2) Hypertension Current Visit: Yes Status: Acute Plan to address problem: Blood pressures are controlled (3) Diabetes mellitus Current Visit: Yes Status: Acute Plan to address problem: As per Attending (4) Acute hypoxemic respiratory failure Current Visit: No Status: Acute Plan to address problem: S/P intubation Subjective Date of service: 05/10/17 Principal diagnosis: ESRD Interval history: Patient seen lying in bed. On veturi mask. Objective - Vital Signs Vital signs: Vital Signs - 12hr 05/10/17 05/10/17 05/10/17 03:44 03:46 04:00 Temperature 98.8 F Pulse Rate 96 H 94 H Respiratory 23 27 H Rate Blood Pressure 91/50 95/57 O2 Sat by Pulse 97 99 Oximetry O2 Sat by Pulse Oximetry [ Anterior Bilateral Throughout] 05/10/17 05/10/17 05/10/17 04:16 04:30 04:46 Temperature Pulse Rate 95 H 94 H 94 H Respiratory 28 H 28 H 24 Rate Blood Pressure 95/57 96/55 96/55 O2 Sat by Pulse 98 99 99 Oximetry O2 Sat by Pulse Oximetry [ Anterior Bilateral Throughout] 05/10/17 05/10/17 05/10/17 05:00 05:16 05:30 Temperature Pulse Rate 93 H 93 H 93 H Respiratory 25 H 25 H 25 H Rate Blood Pressure 94/52 94/52 94/54 O2 Sat by Pulse 99 99 99 Oximetry O2 Sat by Pulse Oximetry [ Anterior Bilateral Throughout] 05/10/17 05/10/17 05/10/17 05:46 06:00 06:16 Temperature Pulse Rate 94 H 95 H 94 H Respiratory 28 H 31 H 28 H Rate Blood Pressure 94/54 92/56 92/56 O2 Sat by Pulse 99 99 99 Oximetry O2 Sat by Pulse Oximetry [ Anterior Bilateral Throughout] 05/10/17 05/10/17 05/10/17 06:30 06:46 07:00 Temperature Pulse Rate 93 H 96 H 97 H Respiratory 20 15 34 H Rate Blood Pressure 95/56 95/56 93/57 O2 Sat by Pulse 98 92 Oximetry O2 Sat by Pulse Oximetry [ Anterior Bilateral Throughout] 05/10/17 05/10/17 05/10/17 07:16 07:30 07:46 Temperature Pulse Rate 95 H 93 H 94 H Respiratory 15 27 H 30 H Rate Blood Pressure 93/57 93/58 93/58 O2 Sat by Pulse 97 98 97 Oximetry O2 Sat by Pulse Oximetry [ Anterior Bilateral Throughout] 05/10/17 05/10/17 05/10/17 08:00 08:16 08:30 Temperature 97.6 F Pulse Rate 93 H 93 H 93 H Respiratory 26 H 25 H 26 H Rate Blood Pressure 90/55 90/55 99/57 O2 Sat by Pulse 99 97 98 Oximetry O2 Sat by Pulse Oximetry [ Anterior Bilateral Throughout] 05/10/17 05/10/17 05/10/17 08:39 08:46 09:00 Temperature Pulse Rate 93 H 93 H Respiratory 25 H 27 H Rate Blood Pressure 99/57 97/59 O2 Sat by Pulse 99 100 99 Oximetry O2 Sat by Pulse Oximetry [ Anterior Bilateral Throughout] 05/10/17 05/10/17 05/10/17 09:16 09:30 09:46 Temperature Pulse Rate 93 H 94 H 94 H Respiratory 24 24 24 Rate Blood Pressure 97/59 103/61 97/59 O2 Sat by Pulse 98 98 99 Oximetry O2 Sat by Pulse Oximetry [ Anterior Bilateral Throughout] 05/10/17 05/10/17 05/10/17 10:00 10:15 10:16 Temperature 97.6 F Pulse Rate 94 H 93 H 94 H Respiratory 26 H 28 H 26 H Rate Blood Pressure 106/61 106/61 106/61 O2 Sat by Pulse 100 97 Oximetry O2 Sat by Pulse 100 Oximetry [ Anterior Bilateral Throughout] 05/10/17 05/10/17 05/10/17 10:20 10:30 10:45 Temperature Pulse Rate 94 H 93 H 92 H Respiratory 27 H Rate Blood Pressure 101/56 102/56 101/59 O2 Sat by Pulse 98 Oximetry O2 Sat by Pulse Oximetry [ Anterior Bilateral Throughout] 05/10/17 05/10/17 05/10/17 10:46 11:00 11:15 Temperature Pulse Rate 92 H 95 H 94 H Respiratory 26 H 25 H Rate Blood Pressure 101/59 114/65 114/65 O2 Sat by Pulse 99 Oximetry O2 Sat by Pulse Oximetry [ Anterior Bilateral Throughout] 05/10/17 05/10/17 05/10/17 11:16 11:30 11:45 Temperature Pulse Rate 99 H 99 H 99 H Respiratory 19 25 H Rate Blood Pressure 119/64 114/60 114/64 O2 Sat by Pulse 95 94 Oximetry O2 Sat by Pulse Oximetry [ Anterior Bilateral Throughout] 05/10/17 05/10/17 05/10/17 11:46 12:00 12:15 Temperature 97.4 F L Pulse Rate 100 H 101 H 99 H Respiratory 24 27 H Rate Blood Pressure 115/63 121/62 115/63 O2 Sat by Pulse Oximetry O2 Sat by Pulse Oximetry [ Anterior Bilateral Throughout] 05/10/17 05/10/17 05/10/17 12:16 12:30 12:45 Temperature Pulse Rate 101 H 100 H 100 H Respiratory 29 H 26 H Rate Blood Pressure 114/60 113/61 121/62 O2 Sat by Pulse 92 Oximetry O2 Sat by Pulse Oximetry [ Anterior Bilateral Throughout] 05/10/17 05/10/17 05/10/17 12:46 13:00 13:20 Temperature Pulse Rate 102 H 101 H 102 H Respiratory 29 H Rate Blood Pressure 109/59 114/60 110/66 O2 Sat by Pulse Oximetry O2 Sat by Pulse Oximetry [ Anterior Bilateral Throughout] 05/10/17 13:30 Temperature 97.4 F L Pulse Rate 102 H Respiratory 24 Rate Blood Pressure 109/59 O2 Sat by Pulse Oximetry O2 Sat by Pulse 100 Oximetry [ Anterior Bilateral Throughout] - General Appearance General appearance: well-developed, appears stated age EENT: ATNC, PERRL, hearing intact, vision intact Neck: no JVD, supple Respiratory: Present: Decreased Breath Sounds Cardiology: regular, S1S2 Gastrointestinal: normoactive bowel sounds Integumentary: warm and dry Neurologic: confused Musculoskeletal: other (No edema to bLE) - Lab 05/09/17 06:00 05/09/17 06:00 Most recent lab results Calcium 7.7 mg/dL (8.4-10.2) L 05/09/17 06:00
[2017-05-10] MEDS: NEURONTIN PO SCH ×2 (18:32→21:56)
[2017-05-10] MEDS: cefTRIAXone 1 GM in NACL 0.9% 20 ML IV SCH (18:35)
[2017-05-10] MEDS: ZOLOFT PO SCH (18:36)
[2017-05-10] MEDS: DESYREL PO SCH (21:56)
[2017-05-11] MEDS: NEURONTIN PO SCH ×3 (06:05→21:22)
[2017-05-11 06:42] LABS: Basophils % (Auto) 0.3 % (0.0-1.8); Eosinophils % (Auto) 0.3 % (0.0-4.3); Hematocrit 29.3 % (30.3-42.9); Hemoglobin 9.1 gm/dl (10.1-14.3); Lymphocytes # (Auto) 0.5 K/mm3 (1.2-5.4); Lymphocytes % (Auto) 4.2 % (13.4-35.0); Mean Corpuscular HGB Conc 31 % (30-34); Mean Corpuscular Hemoglobin 34 pg (28-32); Mean Corpuscular Volume 110 fl (79-97); Monocytes # (Auto) 1.4 K/mm3 (0.0-0.8); Monocytes % (Auto) 12.7 % (0.0-7.3); Platelet Count 252 K/mm3 (140-440); Red Blood Count 2.66 M/mm3 (3.65-5.03)
[2017-05-11 06:43] LABS: Red Cell Distribution Width 23.1 % (13.2-15.2)
[2017-05-11 06:57] LABS: Calcium 9.1 mg/dL (8.4-10.2)
[2017-05-11] MEDS: RENVELA PO SCH ×2 (08:00→12:00)
--- NOTE | 2017-05-11 08:30 | Progress Note ---
Assessment and Plan Assessment and plan: --Hypotension; patient's blood pressures have been in the lower range, will recheck again after 15 minutes Give a trial of fluid bolus with 200 mL normal saline --Metabolic encephalopathy at the time of admission; intubated to protect the airway Now successfully extubated, continue oxygen titrate O2 sats to more than 90% and supportive care --Bilateral pneumonia/atelectasis Empiric antibiotics follow cultures oxygen as needed, sputum cultures MRSA, contact isolation, ID consult --Sepsis/possible septic shock; off Levophed, blood pressure is reasonable level --Positive cardiac enzymes; probably nonspecific secondary to end-stage renal disease However patient has significant coronary artery disease, consult cardiology --Coronary artery disease s/p PCI : Continue current cardiac medications --Cardiomyopathy ejection fraction of 40% 04/2016 --End-stage renal disease on hemodialysis, nephrology following HD per schedule --Hypertension; hold antihypertensives, blood pressure is in the lower range --?Type 2 diabetes mellitus; Accu-Chek sliding scale coverage and ADA diet and insulin as needed A1c is less than 6 --Dyslipidemia; and new lipid-lowering medications --DVT prophylaxis; heparin renal dose History Interval history: Patient seen and examined this morning medical records reviewed Patient feels very tired, blood pressure is in the lower range Alert and awake responding to very simple questions Vital signs reviewed Hospitalist Physical - Constitutional Vitals: Temp Pulse Resp BP Pulse Ox 97.6 F 99 H 17 99/53 95 05/11/17 04:44 05/11/17 04:44 05/11/17 04:44 05/11/17 04:44 05/11/17 07:58 General appearance: Present: mild distress, cachectic - EENT Eyes: Present: PERRL, EOM intact - Neck Neck: Present: supple, normal ROM - Respiratory Respiratory effort: normal Respiratory: bilateral: diminished, rales, negative: rhonchi, wheezing - Cardiovascular Rhythm: regular Heart Sounds: Present: S1 & S2 - Extremities Extremities: no ischemia, No edema - Abdominal General gastrointestinal: soft, non-tender, non-distended, normal bowel sounds - Integumentary Integumentary: Present: clear, warm - Psychiatric Psychiatric: appropriate mood/affect, other (confused at times) - Neurologic Neurologic: moves all extremities Results - Labs CBC & Chem 7: 05/11/17 06:09 05/11/17 06:09 Labs: Laboratory Last Values WBC 11.4 K/mm3 (4.5-11.0) H 05/11/17 06:09 RBC 2.66 M/mm3 (3.65-5.03) L 05/11/17 06:09 Hgb 9.1 gm/dl (10.1-14.3) L 05/11/17 06:09 Hct 29.3 % (30.3-42.9) L 05/11/17 06:09 MCV 110 fl (79-97) H 05/11/17 06:09 MCH 34 pg (28-32) H 05/11/17 06:09 MCHC 31 % (30-34) 05/11/17 06:09 RDW 23.1 % (13.2-15.2) H 05/11/17 06:09 Plt Count 252 K/mm3 (140-440) 05/11/17 06:09 Lymph % (Auto) 4.2 % (13.4-35.0) L 05/11/17 06:09 [place] % (Auto) 12.7 % (0.0-7.3) H 05/11/17 06:09 Eos % (Auto) 0.3 % (0.0-4.3) 05/11/17 06:09 Baso % (Auto) 0.3 % (0.0-1.8) 05/11/17 06:09 Lymph # 0.5 K/mm3 (1.2-5.4) L 05/11/17 06:09 [place] # 1.4 K/mm3 (0.0-0.8) H 05/11/17 06:09 Eos # 0.0 K/mm3 (0.0-0.4) 05/11/17 06:09 Baso # 0.0 K/mm3 (0.0-0.1) 05/11/17 06:09 Add Manual Diff Complete 05/08/17 21:25 Total Counted 100 05/08/17 21:25 Seg Neutrophils % 82.5 % (40.0-70.0) H 05/11/17 06:09 Seg Neuts % (Manual) 92.0 % (40.0-70.0) H 05/08/17 21:25 Band Neutrophils % 0 % 05/08/17 21:25 Lymphocytes % (Manual) 6.0 % (13.4-35.0) L 05/08/17 21:25 Reactive Lymphs % (Man) 0 % 05/08/17 21:25 Monocytes % (Manual) 2.0 % (0.0-7.3) 05/08/17 21:25 Eosinophils % (Manual) 0 % (0.0-4.3) 05/08/17 21:25 Basophils % (Manual) 0 % (0.0-1.8) 05/08/17 21:25 Metamyelocytes % 0 % 05/08/17 21:25 Myelocytes % 0 % 05/08/17 21: Promyelocytes % 0 % 05/08/17 21:25 Blast Cells % 0 % 05/08/17 21:25 Nucleated RBC % Not Reportable 05/08/17 21:25 Seg Neutrophils # 9.4 K/mm3 (1.8-7.7) H 05/11/17 06:09 Seg Neutrophils # Man 9.3 K/mm3 (1.8-7.7) H 05/08/17 21:25 Band Neutrophils # 0.0 K/mm3 05/08/17 21:25 Lymphocytes # (Manual) 0.6 K/mm3 (1.2-5.4) L 05/08/17 21:25 Abs React Lymphs (Man) 0.0 K/mm3 05/08/17 21:25 Monocytes # (Manual) 0.2 K/mm3 (0.0-0.8) 05/08/17 21:25 Eosinophils # (Manual) 0.0 K/mm3 (0.0-0.4) 05/08/17 21:25 Basophils # (Manual) 0.0 K/mm3 (0.0-0.1) 05/08/17 21:25 Metamyelocytes # 0.0 K/mm3 05/08/17 21:25 Myelocytes # 0.0 K/mm3 05/08/17 21:25 Promyelocytes # 0.0 K/mm3 05/08/17 21:25 Blast Cells # 0.0 K/mm3 05/08/17 21:25 WBC Morphology Not Reportable 05/08/17 21:25 Hypersegmented Neuts Not Reportable 05/08/17 21:25 Hyposegmented Neuts Not Reportable 05/08/17 21:25 Hypogranular Neuts Not Reportable 05/08/17 21:25 Smudge Cells Not Reportable 05/08/17 21:25 Toxic Granulation Not Reportable 05/08/17 21:25 Toxic Vacuolation Not Reportable 05/08/17 21:25 Dohle Bodies Not Reportable 05/08/17 21:25 Pelger-Huet Anomaly Not Reportable 05/08/17 21:25 Anthony Rods Not Reportable 05/08/17 21:25 Platelet Estimate Consistent w auto 05/08/17 21:25 Clumped Platelets Not Reportable 05/08/17 21:25 Plt Clumps, EDTA Not Reportable 05/08/17 21:25 Large Platelets Not Reportable 05/08/17 21:25 Giant Platelets Not Reportable 05/08/17 21:25 Platelet Satelliting Not Reportable 05/08/17 21:25 Plt Morphology Comment Not Reportable 05/08/17 21:25 RBC Morphology Not Reportable 05/08/17 21:25 Dimorphic RBCs Yes 05/08/17 21:25 Polychromasia 1+ 05/08/17 21:25 Hypochromasia Not Reportable 05/08/17 21:25 Poikilocytosis Not Reportable 05/08/17 21:25 Anisocytosis Not Reportable 05/08/17 21:25 Microcytosis 1+ 05/08/17 21:25 Macrocytosis 1+ 05/08/17 21:25 Spherocytes Not Reportable 05/08/17 21:25 Pappenheimer Bodies Not Reportable 05/08/17 21:25 Sickle Cells Not Reportable 05/08/17 21:25 Target Cells Not Reportable 05/08/17 21:25 Tear Drop Cells Few 05/08/17 21:25 Ovalocytes Not Reportable 05/08/17 21:25 Helmet Cells Not Reportable 05/08/17 21:25 [place] Bodies Not Reportable 05/08/17 21:25 [place] Rings Not Reportable 05/08/17 21:25 [place] Cells Not Reportable 05/08/17 21:25 Bite Cells Not Reportable 05/08/17 21:25 Crenated Cell Not Reportable 05/08/17 21:25 Elliptocytes Not Reportable 05/08/17 21:25 Acanthocytes (Spur) Not Reportable 05/08/17 21:25 Rouleaux Not Reportable 05/08/17 21:25 Hemoglobin C Crystals Not Reportable 05/08/17 21:25 Schistocytes Not Reportable 05/08/17 21:25 Malaria parasites Not Reportable 05/08/17 21:25 Jose Bodies Not Reportable 05/08/17 21:25 Hem Pathologist Commnt No 05/08/17 21:25 PT 15.2 Sec. (12.2-14.9) H 05/08/17 21:25 INR 1.14 (0.87-1.13) H 05/08/17 21:25 POC ABG pH 7.323 (7.35-7.45) L 05/09/17 08:52 POC ABG pCO2 41.8 (35-45) 05/09/17 08:52 POC ABG pO2 143 (80-105) H 05/09/17 08:52 POC ABG HCO3 21.7 05/09/17 08:52 POC ABG Total CO2 23 05/09/17 08:52 POC ABG O2 Sat 99 05/09/17 08:52 POC ABG Base Excess -4 05/09/17 08:52 FiO2 60 % 05/09/17 08:52 Sodium 145 mmol/L (137-145) 05/11/17 06:09 Potassium 4.4 mmol/L (3.6-5.0) 05/11/17 06:09 Chloride 95.6 mmol/L (98-107) L 05/11/17 06:09 Carbon Dioxide 20 mmol/L (22-30) L 05/11/17 06:09 Anion Gap 34 mmol/L 05/11/17 06:09 BUN 24 mg/dL (7-17) H 05/11/17 06:09 Creatinine 3.4 mg/dL (0.7-1.2) H 05/11/17 06:09 Estimated GFR 14 ml/min 05/11/17 06:09 BUN/Creatinine Ratio 7 % 05/11/17 06:09 Glucose 134 mg/dL (65-100) H 05/11/17 06:09 Lactic Acid 1.10 mmol/L (0.7-2.0) 05/10/17 05:58 Calcium 9.1 mg/dL (8.4-10.2) D 05/11/17 06:09 Total Bilirubin 0.60 mg/dL (0.1-1.2) 05/08/17 22:42 AST 22 units/L (5-40) 05/08/17 22:42 ALT 18 units/L (7-56) 05/08/17 22:42 Alkaline Phosphatase 258 units/L (35-129) H 05/08/17 22:42 Total Creatine Kinase 24 units/L (30-135) L 05/09/17 14:00 CK-MB (CK-2) 2.2 ng/mL (0.0-4.0) 05/09/17 14:00 CK-MB (CK-2) Rel Index 9.1 (0-4) H 05/09/17 14:00 Troponin T 0.654 ng/mL (0.00-0.029) H* 05/09/17 14:00 Total Protein 5.2 g/dL (6.3-8.2) L 05/08/17 22:42 Albumin 2.9 g/dL (3.9-5) L 05/08/17 22:42 Albumin/Globulin Ratio 1.3 % 05/08/17 22:42 Triglycerides 125 mg/dL (2-149) 05/09/17 06:00 Cholesterol 73 mg/dL (50-199) 05/09/17 06:00 LDL Cholesterol Direct 21 mg/dL (50-130) L 05/09/17 06:00 HDL Cholesterol 27 mg/dL (40-59) L 05/09/17 06:00 Cholesterol/HDL Ratio 2.70 % 05/09/17 06:00 Urine Color Yellow (Yellow) 05/08/17 Unknown Urine Turbidity Clear (Clear) 05/08/17 Unknown Urine pH 7.0 (5.0-7.0) 05/08/17 Unknown Ur Specific [place] 1.014 (1.003-1.030) 05/08/17 Unknown Urine Protein 100 mg/dl mg/dL (Negative) 05/08/17 Unknown Urine Glucose (UA) 150 mg/dL (Negative) 05/08/17 Unknown Urine Ketones Neg mg/dL (Negative) 05/08/17 Unknown Urine Blood Sm (Negative) 05/08/17 Unknown Urine Nitrite Neg (Negative) 05/08/17 Unknown Urine Bilirubin Neg (Negative) 05/08/17 Unknown Urine Urobilinogen < 2.0 mg/dL (<2.0) 05/08/17 Unknown Ur Leukocyte Esterase Tr (Negative) 05/08/17 Unknown Urine WBC (Auto) 16.0 /HPF (0.0-6.0) H 05/08/17 Unknown Urine RBC (Auto) 3.0 /HPF (0.0-6.0) 05/08/17 Unknown U Epithel Cells (Auto) < 1.0 /HPF (0-13.0) 05/08/17 Unknown Urine Bacteria (Auto) 1+ /HPF (Negative) 05/08/17 Unknown Salicylates < 0.3 mg/dL (2.8-20.0) L 05/08/17 21:35 Acetaminophen < 15.0 ug/mL (10.0-30.0) 05/08/17 21:35 Hepatitis A IgM Ab Non-reactive (NonReactive) 05/09/17 17:00 Hep Bs Antigen Non-reactive (Negative) 05/09/17 17:00 Hep B Core IgM Ab Non-reactive (NonReactive) 05/09/17 17:00 Hepatitis C Antibody Reactive (NonReactive) A 05/09/17 17:00
[2017-05-11] MEDS: HEPARIN SUB-Q SCH ×3 (10:00→21:22)
[2017-05-11] MEDS ORDERED: NACL 0.9% 250ML 250 ML IV ONE (10:30)
--- NOTE | 2017-05-11 10:32 | XRay Report ---
AP CHEST: HISTORY: Followup respiratory failure No significant change in cardiomegaly, pulmonary venous congestion, small left pleural effusion and suspected lingular infiltrate. Partial atelectasis of the right middle lobe has increased slightly. No pneumothorax. IMPRESSION: No significant change.
--- NOTE | 2017-05-11 10:49 | Progress Note ---
Assessment and Plan (1) ESRD (end stage renal disease) Current Visit: Yes Status: Chronic Plan to address problem: CXR is still showing possible venous congestion but currently with very low BP, will not dialyze today, possibly tomorrow if BP allows will d/c Amlodipine Fluid restriction of 1 liter per day Renally dose medications Monitor I/O's Obtain daily weights Assess dialysis needs daily (2) Hypertension Current Visit: Yes Status: Acute Plan to address problem: d/c Amlodipine as above (3) Diabetes mellitus Current Visit: Yes Status: Acute Plan to address problem: As per primary team (4) Acute hypoxemic respiratory failure Current Visit: No Status: Acute Plan to address problem: S/P intubation Subjective Date of service: 05/11/17 Principal diagnosis: ESRD Interval history: HD was doen without complications yesterday, she was transferred to the floor after, no family at bedside Objective - Vital Signs Vital signs: Vital Signs - 12hr 05/10/17 05/10/17 05/11/17 23:15 23:23 00:32 Temperature 98.7 F Pulse Rate 98 H 102 H Respiratory 22 17 Rate Blood Pressure 97/56 O2 Sat by Pulse 95 97 Oximetry 05/11/17 05/11/17 05/11/17 04:44 07:58 08:47 Temperature 97.6 F Pulse Rate 99 H Respiratory 17 Rate Blood Pressure 99/53 70/51 O2 Sat by Pulse 95 95 Oximetry - General Appearance General appearance: well-developed, cachectic EENT: ATNC, PERRL, mucous membranes dry Neck: no JVD, no carotid bruit Respiratory: Present: Decreased Breath Sounds Cardiology: regular, S1S2 Gastrointestinal: normoactive bowel sounds, no tenderness, no distended Integumentary: no rash, warm and dry Neurologic: other (follows simple commands) Musculoskeletal: other (no edema in BLE) Psychiatric: cooperative - Lab 05/11/17 06:09 05/11/17 06:09 Most recent lab results Calcium 9.1 mg/dL (8.4-10.2) D 05/11/17 06:09
--- NOTE | 2017-05-11 11:19 | Progress Note ---
Assessment and Plan Acute respiratory failure. Status post extubation, clinically stable respiratory status at this time. Still some congestion CHF with decompensation Pneumonia/atelectasis on CXR. Still some congestion. Also pending follow-up dialysis ESRD decompensation Rec Continue nebulizer therapy every 4 hours. Incentive spirometry q 1-2 hours Continue antibiotics and monitor culture. Hemodialysis per nephrology Monitor intake and output Subjective Date of service: 05/11/17 Principal diagnosis: ESRD Interval history: Reports no complaints and transfer. Answer simple questions, appears to be evasive. Objective Vital Signs - 12hr 05/10/17 05/11/17 05/11/17 23:23 00:32 04:44 Temperature 98.7 F 97.6 F Pulse Rate 98 H 102 H 99 H Respiratory 17 17 Rate Blood Pressure 97/56 99/53 O2 Sat by Pulse 97 95 Oximetry 05/11/17 05/11/17 07:58 08:47 Temperature Pulse Rate Respiratory Rate Blood Pressure 70/51 O2 Sat by Pulse 95 Oximetry Constitutional: other (sleepy) ENT: oropharynx moist Neck: supple, other (left IJ) Effort: normal Ascultation: Bilateral: rales (mainly bases No wheezing) Percussion: Bilateral: not dull Cardiovascular: regular rate and rhythm Gastrointestinal: normoactive bowel sounds, soft, non-tender Integumentary: other (bruits on left forehead) Extremities: no cyanosis, no edema Neurologic: CN II-XII normal, motor strength normal and, other (Limited exam, see above) CBC and BMP: 05/11/17 06:09 05/11/17 06:09 ABG, PT/INR, D-dimer: ABG POC ABG pH 7.323 (7.35-7.45) L 05/09/17 08:52 POC ABG pCO2 41.8 (35-45) 05/09/17 08:52 POC ABG pO2 143 (80-105) H 05/09/17 08:52 POC ABG HCO3 21.7 05/09/17 08:52 POC ABG Total CO2 23 05/09/17 08:52 POC ABG O2 Sat 99 05/09/17 08:52 PT/INR, D-dimer PT 15.2 Sec. (12.2-14.9) H 05/08/17 21:25 INR 1.14 (0.87-1.13) H 05/08/17 21:25 Abnormal lab findings: Abnormal Labs 05/08/17 05/08/17 05/08/17 21:25 21:25 21:25 WBC RBC 2.55 L Hgb 8.9 L Hct 28.1 L MCV 111 H MCH 35 H RDW 25.4 H Lymph % (Auto) [place] % (Auto) Lymph # [place] # Seg Neutrophils % Seg Neuts % (Manual) 92.0 H Lymphocytes % (Manual) 6.0 L Seg Neutrophils # Seg Neutrophils # Man 9.3 H Lymphocytes # (Manual) 0.6 L PT 15.2 H INR 1.14 H POC ABG pH POC ABG pCO2 POC ABG pO2 Chloride Carbon Dioxide BUN Creatinine Glucose Lactic Acid 2.50 H* Calcium Alkaline Phosphatase Total Creatine Kinase CK-MB (CK-2) Rel Index Troponin T Total Protein Albumin LDL Cholesterol Direct HDL Cholesterol Urine WBC (Auto) Salicylates Hepatitis C Antibody 05/08/17 05/08/17 05/08/17 21:35 22:04 22:42 WBC RBC Hgb Hct MCV MCH RDW Lymph % (Auto) [place] % (Auto) Lymph # [place] # Seg Neutrophils % Seg Neuts % (Manual) Lymphocytes % (Manual) Seg Neutrophils # Seg Neutrophils # Man Lymphocytes # (Manual) PT INR POC ABG pH 7.271 L POC ABG pCO2 56.5 H POC ABG pO2 30 L Chloride 107.8 H Carbon Dioxide BUN 22 H Creatinine 2.6 H Glucose 202 H Lactic Acid Calcium 7.3 L Alkaline Phosphatase 258 H Total Creatine Kinase CK-MB (CK-2) Rel Index Troponin T Total Protein 5.2 L Albumin 2.9 L LDL Cholesterol Direct HDL Cholesterol Urine WBC (Auto) Salicylates < 0.3 L Hepatitis C Antibody 05/08/17 05/09/17 05/09/17 Unknown 00:24 06:00 WBC RBC Hgb Hct MCV MCH RDW Lymph % (Auto) [place] % (Auto) Lymph # [place] # Seg Neutrophils % Seg Neuts % (Manual) Lymphocytes % (Manual) Seg Neutrophils # Seg Neutrophils # Man Lymphocytes # (Manual) PT INR POC ABG pH 7.283 L POC ABG pCO2 49.9 H POC ABG pO2 249 H Chloride Carbon Dioxide BUN Creatinine Glucose Lactic Acid Calcium Alkaline Phosphatase Total Creatine Kinase 19 L CK-MB (CK-2) Rel Index 11.0 H Troponin T 0.612 H* Total Protein Albumin LDL Cholesterol Direct 21 L HDL Cholesterol 27 L Urine WBC (Auto) 16.0 H Salicylates Hepatitis C Antibody 05/09/17 05/09/17 05/09/17 06:00 06:00 08:52 WBC 11.7 H RBC 2.67 L Hgb 9.3 L Hct 30.0 L MCV 112 H MCH 35 H RDW 24.4 H Lymph % (Auto) [place] % (Auto) Lymph # [place] # Seg Neutrophils % Seg Neuts % (Manual) Lymphocytes % (Manual) Seg Neutrophils # Seg Neutrophils # Man Lymphocytes # (Manual) PT INR POC ABG pH 7.323 L POC ABG pCO2 POC ABG pO2 143 H Chloride Carbon Dioxide BUN 24 H Creatinine 2.9 H Glucose 172 H Lactic Acid Calcium 7.7 L Alkaline Phosphatase Total Creatine Kinase CK-MB (CK-2) Rel Index Troponin T Total Protein Albumin LDL Cholesterol Direct HDL Cholesterol Urine WBC (Auto) Salicylates Hepatitis C Antibody 05/09/17 05/09/17 05/11/17 14:00 17:00 06:09 WBC 11.4 H RBC 2.66 L Hgb 9.1 L Hct 29.3 L MCV 110 H MCH 34 H RDW 23.1 H Lymph % (Auto) 4.2 L [place] % (Auto) 12.7 H Lymph # 0.5 L [place] # 1.4 H Seg Neutrophils % 82.5 H Seg Neuts % (Manual) Lymphocytes % (Manual) Seg Neutrophils # 9.4 H Seg Neutrophils # Man Lymphocytes # (Manual) PT INR POC ABG pH POC ABG pCO2 POC ABG pO2 Chloride Carbon Dioxide BUN Creatinine Glucose Lactic Acid Calcium Alkaline Phosphatase Total Creatine Kinase 24 L CK-MB (CK-2) Rel Index 9.1 H Troponin T 0.654 H* Total Protein Albumin LDL Cholesterol Direct HDL Cholesterol Urine WBC (Auto) Salicylates Hepatitis C Antibody Reactive A 05/11/17 06:09 WBC RBC Hgb Hct MCV MCH RDW Lymph % (Auto) [place] % (Auto) Lymph # [place] # Seg Neutrophils % Seg Neuts % (Manual) Lymphocytes % (Manual) Seg Neutrophils # Seg Neutrophils # Man Lymphocytes # (Manual) PT INR POC ABG pH POC ABG pCO2 POC ABG pO2 Chloride 95.6 L Carbon Dioxide 20 L BUN 24 H Creatinine 3.4 H Glucose 134 H Lactic Acid Calcium Alkaline Phosphatase Total Creatine Kinase CK-MB (CK-2) Rel Index Troponin T Total Protein Albumin LDL Cholesterol Direct HDL Cholesterol Urine WBC (Auto) Salicylates Hepatitis C Antibody
--- NOTE | 2017-05-11 11:46 | Consultation ---
History of Present Illness Consult date: 05/11/17 Requesting physician: TYREE DODD Consult reason: elevated troponin, other (CAD) History of present illness: The pt is a 56 YO female with a past medical history significant for CAD, [place] with PCI of mid LAD and mid circ at [facility] (01/20/2016), NSTEMI with subacute left circ and LAD stent thrombosis s/p stent of left circ and balloon angioplasty alone of LAD (02/22/2016), ICMP, ESRD on HD, DM, HTN, and HLP. She has been seen by our practice on prior hospitalization. She was admitted on 02/2017 with altered mental status. Pt remains confused on evaluation and thus HPI is obtained from the records. Per chart, pt was brought in by EMS with altered mental status. Per ED physician, not able to protect her airway so was intubated and initiated on levophed gtt for hypotension. Pt has since been extubated and weaned off vasopressors. On evaluation, pt is not in any apparent distress. She denies any current complaints. Echo done 04/17/2017 showed EF 40%, apex, anterior and anterolateral hypokinesis , mod to severe TR, pulm HTN with RVSP 57.9mmHg. Past History Past Medical History: ESRD, hypertension, hyperlipidemia Past Surgical History: Other (fistula placement) Social history: other (unable to obtain) Medications and Allergies Allergies Allergy/AdvReac Type Severity Reaction Status Date / Time Sulfa (Sulfonamide Allergy Unknown Verified 05/08/17 20:32 Antibiotics) Home Medications Medication Instructions Recorded Confirmed Last Taken Type Aspirin [Aspirin BABY CHEW TAB] 81 mg PO QDAY 02/17/16 05/28/16 05/26/16 History AtorvaSTATin [Lipitor] 40 mg PO DAILY 02/17/16 05/28/16 05/26/16 History Cinacalcet [Sensipar] 30 mg PO BID 02/17/16 05/28/16 05/26/16 History Cyclobenzaprine [Flexeril 10 MG 10 mg PO TID PRN 02/17/16 05/28/16 05/26/16 History TAB] Furosemide [Lasix TAB] 40 mg PO QDAY 02/17/16 05/28/16 05/26/16 History Gabapentin [Neurontin] 300 mg PO Q8HR 09/05/28/16 05/26/16 History Lisinopril [Zestril TAB] 20 mg PO QDAY 02/17/16 05/28/16 05/26/16 History Omeprazole 20 mg PO DAILY 02/17/16 05/28/16 05/26/16 History Promethazine [Phenergan TAB] 25 mg PO Q6HR PRN 02/17/16 05/28/16 05/26/16 History Sertraline [Zoloft] 50 mg PO QDAY 02/17/16 05/28/16 05/26/16 History Sevelamer Carbonate [Renvela] 800 mg PO TIDWM 02/17/16 05/28/16 05/26/16 History Ticagrelor [Brilinta] 90 mg PO BID 02/17/16 05/28/16 05/26/16 History amLODIPine [Norvasc] 5 mg PO DAILY 02/17/16 05/28/16 05/26/16 History traZODone [Desyrel] 50 mg PO QHS 02/17/16 05/28/16 05/26/16 History Albuterol Sulfate [Ventolin HFA] 2 puff IH Q4H PRN #1 pump 04/11/16 05/28/16 Rx Prednisone [predniSONE 5 mg (6-Day 5 mg PO .TAPER #1 tab.ds.pk 04/11/1605/26/16 Rx Pack, 21 Tabs)] Active Meds: Active Medications Acetaminophen (Tylenol) 650 mg [place] Q4H PRN PRN Reason: Pain, Mild (1-3) Albuterol (Proventil) 2.5 mg IH Q4HRT PRN PRN Reason: Shortness Of Breath Aspirin (Baby Aspirin) 81 mg PO QDAY [facility] Last Admin: 05/10/17 11:12 Dose: 81 mg Atorvastatin Calcium (Lipitor) 40 mg PO DAILY [facility] Last Admin: 05/10/17 18:31 Dose: 40 mg Cinacalcet (Sensipar) 30 mg PO BID [facility] Last Admin: 05/10/17 21:58 Dose: 30 mg Cyclobenzaprine HCl (Flexeril) 10 mg PO TID PRN PRN Reason: Muscle Spasm Gabapentin (Neurontin) 300 mg PO Q8HR [facility] Last Admin: 05/11/17 06:05 Dose: 300 mg Heparin Sodium (Porcine) (Heparin) 5,000 unit SUB-Q Q12HR [facility] Last Admin: 05/10/17 21:56 Dose: 5,000 unit Hydrophilic Ointment (Vaseline Lip Therapy) 1 applic TP Q2HR PRN PRN Reason: Dry Lips Ceftriaxone Sodium 1 gm/ (Sodium Chloride) 20 mls @ 20 mls/10 min IV Q24H [facility] Last Admin: 05/10/17 18:35 Dose: 20 mls/10 min Multi-Ingred Cream/Lotion/Oil/Oint (Artificial Tears Ophth Oint) 1 applic OU Q4HR PRN PRN Reason: Dry Eye(s) Nicotine (Habitrol) 21 mg TD QDAY [facility] Ondansetron HCl (Zofran) 4 mg IV Q8H PRN PRN Reason: Nausea And Vomiting Sertraline HCl (Zoloft) 50 mg PO QDAY [facility] Last Admin: 05/10/17 18:36 Dose: 50 mg Sevelamer Carbonate (Renvela) 800 mg PO TIDWM [facility] Last Admin: 05/10/17 20:49 Dose: Not Given Sodium Chloride (Nacl 0.9%) 200 ml IV DIRECT ONE Stop: 05/11/17 09:01 Ticagrelor (Brilinta) 90 mg PO BID [facility] Last Admin: 05/10/17 21:56 Dose: 90 mg Trazodone HCl (Desyrel) 50 mg PO QHS [facility] Last Admin: 05/10/17 21:56 Dose: 50 mg Review of Systems ROS unobtainable: due to mental status All systems: negative (no current complaints, although confused) Physical Examination Vital Signs Pulse Resp 96 H 26 H 05/08/17 20:30 05/08/17 20:30 General appearance: no acute distress, other (confused) HEENT: Positive: PERRL, Normocephaly, Mucus Membranes Moist Neck: Positive: neck supple, trachea midline Cardiac: Positive: Reg Rate and Rhythm, S1/S2 Lungs: Positive: Decreased Breath Sounds Neuro: Positive: Grossly Intact Abdomen: Positive: Soft. Negative: Tender Skin: Positive: Clear. Negative: Rash, Wound Musculoskeletal: No Fluid Collection, No Pain, Normal Range of Motion Extremities: Absent: edema Results 05/11/17 06:09 05/11/17 06:09 CBC 05/11/17 Range/Units 06:09 WBC 11.4 H (4.5-11.0) K/mm3 RBC 2.66 L (3.65-5.03) M/mm3 Hgb 9.1 L (10.1-14.3) gm/dl Hct 29.3 L (30.3-42.9) % Plt Count 252 (140-440) K/mm3 Lymph # 0.5 L (1.2-5.4) K/mm3 [place] # 1.4 H (0.0-0.8) K/mm3 Eos # 0.0 (0.0-0.4) K/mm3 Baso # 0.0 (0.0-0.1) K/mm3 Comprehensive Metabolic Panel 05/11/17 Range/Units 06:09 Sodium 145 (137-145) mmol/L Potassium 4.4 (3.6-5.0) mmol/L Chloride 95.6 L (98-107) mmol/L Carbon Dioxide 20 L (22-30) mmol/L BUN 24 H (7-17) mg/dL Creatinine 3.4 H (0.7-1.2) mg/dL Glucose 134 H (65-100) mg/dL Calcium 9.1 D (8.4-10.2) mg/dL - Imaging and Cardiology Cardiac cath: report reviewed ([place] and PCI of mid LAD and mid circ on 01/20/2016; subacute left circ and LAD stent thrombosis s/p stent of left circ and balloon angioplasty alone of LAD (02/22/2016)) EKG: report reviewed, image reviewed EKG interpretations - Telemetry EKG Rhythm: Sinus Rhythm - EKG Sinus rhythms and dysrhythmias: sinus rhythm AV and intraventricular conduction: right bundle branch block (incomplete) Assessment and Plan Assessment: Acute on chronic systolic heart failure ICMP - echo 04/17/2017 showed EF 40% Elevated troponins - ECG with NAF; pt with no c/o chest pain; currently nonspecific in setting of acutely decompensated HF, sepsis, and ESRD Acute respiratory failure - s/p extubation AMS - head CT with NAF Pneumonia/atelectasis / sepsis ESRD on HD - TTS HD schedule CAD, [place] with PCI of mid LAD and mid circ at [facility] (01/20/2016), NSTEMI with subacute left circ and LAD stent thrombosis s/p stent of left circ and balloon angioplasty alone of LAD (02/22/2016) DM H/o HTN - with hypotension since admission HLP Anemia Hepatitis C Moderate to severe TR Pulmonary HTN - RVSP 57.9mmHg Plan: Volume optimization as BPs permit per nephrology. D/c brilinta as it has been greater than 12 months since last PCI. Cont ASA 81 & lipitor. No indication for repeat echo given recent echo 04/17/2017. No BB, ACEI/ARB, and/or anti-hypertensives at this time given persistent hypotension since admission. The patient has been seen in conjunction with Dr. Menon who agrees with the assessment and plan of care.
[2017-05-11] MEDS: HABITROL TD SCH (11:49)
[2017-05-11] MEDS: ZOLOFT PO SCH (11:54)
[2017-05-11] MEDS: SENSIPAR PO SCH ×2 (11:54→21:22)
[2017-05-11] MEDS: BABY ASPIRIN PO SCH (11:55)
[2017-05-11] MEDS: BRILINTA PO SCH (11:55)
[2017-05-11] MEDS ORDERED: NACL 0.9% IV ONE (12:00)
--- NOTE | 2017-05-11 13:24 | Consultation ---
History of Present Illness - Reason for Consult Consult date: 05/11/17 MRSA pneumonia Requesting physician: TYREE DODD - History of Present Illness 56 years old female with history of ESRD on HD, CAD, [place] with PCI, ICMP, ESRD on HD, DM, HTN, and HLP; admitted on 05/09/17 due to altered mental status and generalized weakness. EMS found with decreased alertness. Patient remains confused in mild resp distress unable to provide a history. In the emergency room, initial temperature was 100.2, heart rate 96, respiration 26, blood pressure 86/53. Initial white count 10.1. Hemoglobin 8.9. Lactic acid 2.5. 2.6. U urinalysis showed trace leukocyte esterase and 16 white blood cells. Per ED physician, not able to protect her airway so was intubated. CT of chest shows diffuse areas of consolidation vs edema and shotty lymphadenopathy, likely secondary to pulmonary edema. Patient was also hypotensive so was started on Levophed. Microbiology: Blood cultures: 05/09 ngtd Urine cultures: Respiratory cultures: TA 05/09 MRSA Current Antimicrobials: Ceftriaxone Previous Antimicrobials: Past History Past Medical History: ESRD, hypertension, hyperlipidemia Past Surgical History: Other (fistula placement) Social history: other (unable to obtain) Medications and Allergies Allergies Allergy/AdvReac Type Severity Reaction Status Date / Time Sulfa (Sulfonamide Allergy Unknown Verified 05/08/17 20:32 Antibiotics) Home Medications Medication Instructions Recorded Confirmed Last Taken Type Aspirin [Aspirin BABY CHEW TAB] 81 mg PO QDAY 02/17/16 05/28/16 05/26/16 History AtorvaSTATin [Lipitor] 40 mg PO DAILY 02/17/16 05/28/16 05/26/16 History Cinacalcet [Sensipar] 30 mg PO BID 02/17/16 05/28/16 05/26/16 History Cyclobenzaprine [Flexeril 10 MG 10 mg PO TID PRN 02/17/16 05/28/16 05/26/16 History TAB] Furosemide [Lasix TAB] 40 mg PO QDAY 02/17/16 05/28/16 05/26/16 History Gabapentin [Neurontin] 300 mg PO Q8HR 02/17/16 05/28/16 05/26/16 History Lisinopril [Zestril TAB] 20 mg PO QDAY 0905/28/16 05/26/16 History Omeprazole 20 mg PO DAILY 02/17/16 05/28/16 05/26/16 History Promethazine [Phenergan TAB] 25 mg PO Q6HR PRN 02/17/16 05/28/16 05/26/16 History Sertraline [Zoloft] 50 mg PO QDAY 02/17/16 05/28/16 05/26/16 History Sevelamer Carbonate [Renvela] 800 mg PO TIDWM 02/17/16 05/28/16 05/26/16 History Ticagrelor [Brilinta] 90 mg PO BID 02/17/16 05/28/16 05/26/16 History amLODIPine [Norvasc] 5 mg PO DAILY 02/17/16 05/28/16 05/26/16 History traZODone [Desyrel] 50 mg PO QHS 02/17/16 05/28/16 05/26/16 History Albuterol Sulfate [Ventolin HFA] 2 puff IH Q4H PRN #1 pump 04/11/16 05/28/16 Rx Prednisone [predniSONE 5 mg (6-Day 5 mg PO .TAPER #1 tab.ds.pk 04/11/1605/26/16 Rx Pack, 21 Tabs)] Active Meds: Active Medications Acetaminophen (Tylenol) 650 mg [place] Q4H PRN PRN Reason: Pain, Mild (1-3) Albuterol (Proventil) 2.5 mg IH Q4HRT PRN PRN Reason: Shortness Of Breath Aspirin (Baby Aspirin) 81 mg PO QDAY [facility] Last Admin: 05/11/17 11:55 Dose: 81 mg Atorvastatin Calcium (Lipitor) 40 mg PO DAILY [facility] Last Admin: 05/11/17 11:55 Dose: 40 mg Cinacalcet (Sensipar) 30 mg PO BID [facility] Last Admin: 05/11/17 11:54 Dose: 30 mg Cyclobenzaprine HCl (Flexeril) 10 mg PO TID PRN PRN Reason: Muscle Spasm Gabapentin (Neurontin) 300 mg PO Q8HR [facility] Last Admin: 05/11/17 06:05 Dose: 300 mg Heparin Sodium (Porcine) (Heparin) 5,000 unit SUB-Q Q12HR [facility] Last Admin: 05/11/17 10:00 Dose: Not Given Hydrophilic Ointment (Vaseline Lip Therapy) 1 applic TP Q2HR PRN PRN Reason: Dry Lips Ceftriaxone Sodium 1 gm/ (Sodium Chloride) 20 mls @ 20 mls/10 min IV Q24H [facility] Last Admin: 05/10/17 18:35 Dose: 20 mls/10 min Multi-Ingred Cream/Lotion/Oil/Oint (Artificial Tears Ophth Oint) 1 applic OU Q4HR PRN PRN Reason: Dry Eye(s) Nicotine (Habitrol) 21 mg TD QDAY [facility] Last Admin: 05/11/17 11:49 Dose: 21 mg Ondansetron HCl (Zofran) 4 mg IV Q8H PRN PRN Reason: Nausea And Vomiting Sertraline HCl (Zoloft) 50 mg PO QDAY [facility] Last Admin: 05/11/17 11:54 Dose: 50 mg Sevelamer Carbonate (Renvela) 800 mg PO TIDWM [facility] Last Admin: 05/11/17 08:00 Dose: Not Given Ticagrelor (Brilinta) 90 mg PO BID [facility] Last Admin: 05/11/17 11:55 Dose: 90 mg Trazodone HCl (Desyrel) 50 mg PO QHS [facility] Last Admin: 05/10/17 21:56 Dose: 50 mg Review of Systems All systems: negative (per HPI rest neg) Physical Examination - Physical Exam Narrative exam: General appearance: somnolent in mild resp distress + mask O2 Eyes: anicteric sclerae, moist conjunctivae; no lid-lag; PERRLA HENT: Atraumatic; oropharynx clear Neck: Trachea midline; supple, no thyromegaly or lymphadenopathy Lungs: ector rhonchi CV: RRR Abdomen: Soft, non-tender Extremities: No peripheral edema or extremity lymphadenopathy Skin: +multiple ecchymoses Psych: somnolent confused Neuro: somnolent Moving all extermities Lines: No CVL / PICC - Constitutional Vitals: Vital Signs Temp Pulse Resp BP Pulse Ox 97.6 F 99 H 17 70/51 95 05/11/17 04:44 05/11/17 04:44 05/11/17 04:44 05/11/17 08:47 05/11/17 07:58 Temperature -Last 24 Hours Temperature 97.6 F Temperature 98.7 F Temperature 98.5 F Temperature 97.4 F Results - Labs CBC & Chem 7: 05/11/17 06:09 05/11/17 06:09 Labs: Abnormal lab results 05/11/17 05/11/17 Range/Units 06:09 06:09 WBC 11.4 H (4.5-11.0) K/mm3 RBC 2.66 L (3.65-5.03) M/mm3 Hgb 9.1 L (10.1-14.3) gm/dl Hct 29.3 L (30.3-42.9) % MCV 110 H (79-97) fl MCH 34 H (28-32) pg RDW 23.1 H (13.2-15.2) % Lymph % (Auto) 4.2 L (13.4-35.0) % [place] % (Auto) 12.7 H (0.0-7.3) % Lymph # 0.5 L (1.2-5.4) K/mm3 [place] # 1.4 H (0.0-0.8) K/mm3 Seg Neutrophils % 82.5 H (40.0-70.0) % Seg Neutrophils # 9.4 H (1.8-7.7) K/mm3 Chloride 95.6 L (98-107) mmol/L Carbon Dioxide 20 L (22-30) mmol/L BUN 24 H (7-17) mg/dL Creatinine 3.4 H (0.7-1.2) mg/dL Glucose 134 H (65-100) mg/dL Assessment and Plan Assessment: 1) Sepsis with initial septic shock: Present on admission, manifested by fever, tachycardia, hypotension, increased lactate. Etiology most likely pneumonia. 2) Bilateral pneumonia: tracheal asp + MRSA 3) Resp failure 4) Ascitis 5) ESRD on HD 6) CAD 7) CHF with exacerbation Plan: -start zyvox -stop ceftriaxone -contact isolation Thank you Dr Dodd for your consultation, will follow up with you. Tamera Butler MD Infectious Diseases Specialist [facility] ([facility] M [phone] O [phone]
[2017-05-11] MEDS: DESYREL PO SCH (21:22)
[2017-05-11] MEDS ORDERED: ALBURX 25% (ALBUMIN) IV SCH (23:00)
[2017-05-12] MEDS: ZYVOX 600MG/300ML 600 MG/300 ML BAG IV SCH ×2 (02:22→02:25)
[2017-05-12] MEDS: NEURONTIN PO SCH ×2 (05:54→16:29)
[2017-05-12] MEDS ORDERED: ZYVOX PO SCH (10:00)
[2017-05-12] MEDS ORDERED: NACL 0.9 (PRIMING MACHINE ONLY DIALYSIS) MC ONE (10:13)
[2017-05-12] MEDS: ZOLOFT PO SCH (10:23)
[2017-05-12] MEDS: RENVELA PO SCH ×2 (10:23→16:29)
[2017-05-12] MEDS: BABY ASPIRIN PO SCH (10:23)
[2017-05-12] MEDS: SENSIPAR PO SCH (10:23)
[2017-05-12] MEDS: HABITROL TD SCH (10:23)
[2017-05-12] MEDS: HEPARIN SUB-Q SCH ×2 (10:24→22:08)
[2017-05-12] MEDS: FLEXERIL PO PRN (10:24)
--- NOTE | 2017-05-12 11:19 | Progress Note ---
Assessment and Plan Assessment: 1) Sepsis with initial septic shock: Present on admission, manifested by fever, tachycardia, hypotension, increased lactate. Etiology most likely pneumonia. 2) Bilateral pneumonia: -tracheal asp + MRSA -CRP very high at 44 3) Resp failure 4) HBV / Ascitis 5) ESRD on HD 6) CAD 7) CHF with exacerbation Plan: -continue zyvox day 2 -consider chest CT is not improvement in view of elevated CRP eval for abscess/ empyema -contact isolation poor prognosis Thank you Dr Gutierrez for your consultation, will follow up with you. Tamera Butler MD Infectious Diseases Specialist [facility] ([facility] M [phone] O [phone] Subjective Date of service: 05/12/17 Principal diagnosis: ESRD Interval history: Still somnolent however answering questions, still on mask O2 and mild resp distress. No fever. Some episodes of hypotension. O2 sat 91%. Microbiology: Blood cultures: 05/09 ngtd Urine cultures: Respiratory cultures: TA 05/09 MRSA Current Antimicrobials: Ceftriaxone Objective - Exam Narrative Exam: General appearance: somnolent in mild resp distress + mask O2 Eyes: anicteric sclerae, moist conjunctivae; no lid-lag; PERRLA HENT: Atraumatic; oropharynx clear Neck: Trachea midline; supple, no thyromegaly or lymphadenopathy Lungs: ector rhonchi CV: RRR Abdomen: Soft, non-tender Extremities: No peripheral edema or extremity lymphadenopathy Skin: +multiple ecchymoses Psych: somnolent confused Neuro: somnolent Moving all extermities Lines: No CVL / PICC - Constitutional Vitals: Vital Signs Temp Pulse Resp BP Pulse Ox 98.7 F 82 20 155/104 96 05/12/17 09:06 05/12/17 09:06 05/12/17 09:06 05/12/17 09:06 05/12/17 09:06 Temperature -Last 24 Hours Temperature 98.7 F Temperature 97.9 F Temperature 97.4 F Temperature 98.6 F Temperature 97.8 F - Labs CBC & Chem 7: 05/11/17 06:09 05/11/17 06:09 Labs: Abnormal lab results 05/11/17 05/11/17 05/11/17 Range/Units 08:20 11:34 15:30 POC Glucose 154 H 149 H (70-105) C-Reactive Protein 44.70 H (0.00-1.30) mg/dL 05/11/17 05/11/17 Range/Units 16:27 21:58 POC Glucose 163 H 199 H (70-105) C-Reactive Protein (0.00-1.30) mg/dL
[2017-05-12] MEDS ORDERED: ALBURX 25% (ALBUMIN) IV SCH (12:00)
--- NOTE | 2017-05-12 13:04 | Progress Note ---
Assessment and Plan Assessment: Acute on chronic systolic heart failure [facility] - echo 04/17/2017 showed EF 40% Elevated troponins - ECG with NAF; pt with no c/o chest pain; currently nonspecific in setting of acutely decompensated HF, sepsis, and ESRD Acute respiratory failure - s/p extubation AMS - head CT with NAF Pneumonia/atelectasis / sepsis ESRD on HD - TTS HD schedule CAD, [place] with PCI of mid LAD and mid circ at [facility] (01/20/2016), NSTEMI with subacute left circ and LAD stent thrombosis s/p stent of left circ and balloon angioplasty alone of LAD (02/22/2016) DM H/o HTN - with hypotension since admission HLP Anemia Hepatitis C Moderate to severe TR Pulmonary HTN - RVSP 57.9mmHg Plan: Volume optimization as BPs permit per nephrology. No indication for repeat echo given recent echo 04/17/2017. No BB, ACEI/ARB, and/or anti-hypertensives at this time given persistent hypotension since admission. The patient has been seen in conjunction with Dr. Menon who agrees with the assessment and plan of care. Subjective Date of service: 05/12/17 Principal diagnosis: ESRD Interval history: pt seen in HD, remains confused, tachycardic, SOB. Objective Last Vital Signs Temp 98.7 F 05/12/17 09:06 Pulse 82 05/12/17 09:06 Resp 20 05/12/17 09:06 BP 155/104 05/12/17 09:06 Pulse Ox 96 05/12/17 09:06 - Physical Examination General: Other (confused) HEENT: Positive: PERRL, Normocephaly, Mucus Membranes Moist Neck: Positive: neck supple, trachea midline Cardiac: Positive: S1/S2, Tachycardia Lungs: Positive: Decreased Breath Sounds Neuro: Positive: Grossly Intact Abdomen: Positive: Soft. Negative: Tender Skin: Positive: Clear. Negative: Rash, Wound Musculoskeletal: No Fluid Collection, No Pain, Normal Range of Motion Extremities: Absent: edema - Imaging and Cardiology EKG: report reviewed, image reviewed Cardiac cath: report reviewed ([place] and PCI of mid LAD and mid circ on 01/20/2016; subacute left circ and LAD stent thrombosis s/p stent of left circ and balloon angioplasty alone of LAD (02/22/2016)) - EKG Sinus rhythms and dysrhythmias: sinus rhythm AV and intraventricular conduction: right bundle branch block (incomplete)
--- NOTE | 2017-05-12 13:21 | XRay Report ---
Single view chest: Compared to 05/11/17. History: Respiratory distress. Findings: Cardiomegaly. Trachea is midline. Bilateral airspace opacities without significant interval change. Impression: No significant interval change.
[2017-05-12] MEDS ORDERED: NACL 0.9% 500 ML 250 ML IV ONE (13:47)
[2017-05-12] MEDS ORDERED: NACL 0.9% 100 ML IV PRN (13:49)
--- NOTE | 2017-05-12 13:57 | Progress Note ---
Assessment and Plan Acute respiratory failure. Called to evaluate the patient after she was sent to hemodialysis earlier today. Reportedly she was distressed hypotensive there. Patient transiently low blood pressure and on oxygen only. Currently initiated on BiPAP, respiratory rate dropped from 40 BPM => 23 BPM. CHF with decompensation Pneumonia/atelectasis on CXR. Still some congestion. Also pending follow-up dialysis ESRD decompensation Rec Continue BiPAP on current setting. Clinically, the patient appears to be improving. Will ask IR to do new IJ placement. The patient had multiple IJ 's during current stay.. This, in case the current remaining one cannot be used. Serial BP monitoring Keep MAP > 65 Monitor UO, keep > 30 cc/ hr Serial lactate levels q 6-8 hr x 4 NSS bolus 250 cc was IV line clear and flushed, repeat as needed to keep MAP > 65 or to max. of 2 L Monitor H&H. PRBC if Hgb < 7 monitor for any bleeding Give linezolid and antibiotics as already ordered by Dr. Pritchard Continue nebulizer therapy every 4 hours. Incentive spirometry q 1-2 hours Hemodialysis per nephrology Monitor intake and output Discussed with staff in detail. Orders reviewed. Critical care time was 35 minutes of [id number] evaluation and coordination of care. Subjective Date of service: 05/12/17 Principal diagnosis: ESRD Interval history: Slightly confused. Short of breath but improving on BiPAP Objective Vital Signs - 12hr 05/12/17 05/12/17 05/12/17 04:50 07:10 09:06 Temperature 97.9 F 98.7 F Pulse Rate 101 H 82 Respiratory 22 20 Rate Blood Pressure 103/63 Blood Pressure 155/104 [Right] O2 Sat by Pulse 96 Oximetry 05/12/17 11:50 Temperature Pulse Rate 106 H Respiratory 23 Rate Blood Pressure 95/61 Blood Pressure [Right] O2 Sat by Pulse 96 Oximetry Constitutional: asleep, other (on BiPAP) ENT: oropharynx moist Neck: supple, other (left IJ) Effort: normal Ascultation: Bilateral: rales (mainly bases No wheezing), rhonchi Percussion: Bilateral: not dull Cardiovascular: regular rate and rhythm Gastrointestinal: normoactive bowel sounds, soft, non-tender Integumentary: other (bruits on left forehead) Extremities: no cyanosis, no edema Neurologic: CN II-XII normal, motor strength normal and, other (Limited exam, see above) CBC and BMP: 05/11/17 06:09 05/11/17 06:09 ABG, PT/INR, D-dimer: ABG POC ABG pH 7.450 (7.35-7.45) 05/12/17 13:10 POC ABG pCO2 36.7 (35-45) 05/12/17 13:10 POC ABG pO2 66 (80-105) L 05/12/17 13:10 POC ABG HCO3 25.5 05/12/17 13:10 POC ABG Total CO2 27 05/12/17 13:10 POC ABG O2 Sat 94 05/12/17 13:10 PT/INR, D-dimer PT 15.2 Sec. (12.2-14.9) H 05/08/17 21:25 INR 1.14 (0.87-1.13) H 05/08/17 21:25 Abnormal lab findings: Abnormal Labs 05/08/17 05/08/17 05/08/17 21:25 21:25 21:25 WBC RBC 2.55 L Hgb 8.9 L Hct 28.1 L MCV 111 H MCH 35 H RDW 25.4 H Lymph % (Auto) [place] % (Auto) Lymph # [place] # Seg Neutrophils % Seg Neuts % (Manual) 92.0 H Lymphocytes % (Manual) 6.0 L Seg Neutrophils # Seg Neutrophils # Man 9.3 H Lymphocytes # (Manual) 0.6 L PT 15.2 H INR 1.14 H POC ABG pH POC ABG pCO2 POC ABG pO2 Chloride Carbon Dioxide BUN Creatinine Glucose POC Glucose Lactic Acid 2.50 H* Calcium Alkaline Phosphatase Total Creatine Kinase CK-MB (CK-2) Rel Index Troponin T C-Reactive Protein Total Protein Albumin LDL Cholesterol Direct HDL Cholesterol Urine WBC (Auto) Salicylates Hepatitis C Antibody 05/08/17 05/08/17 05/08/17 21:35 22:04 22:42 WBC RBC Hgb Hct MCV MCH RDW Lymph % (Auto) [place] % (Auto) Lymph # [place] # Seg Neutrophils % Seg Neuts % (Manual) Lymphocytes % (Manual) Seg Neutrophils # Seg Neutrophils # Man Lymphocytes # (Manual) PT INR POC ABG pH 7.271 L POC ABG pCO2 56.5 H POC ABG pO2 30 L Chloride 107.8 H Carbon Dioxide BUN 22 H Creatinine 2.6 H Glucose 202 H POC Glucose Lactic Acid Calcium 7.3 L Alkaline Phosphatase 258 H Total Creatine Kinase CK-MB (CK-2) Rel Index Troponin T C-Reactive Protein Total Protein 5.2 L Albumin 2.9 L LDL Cholesterol Direct HDL Cholesterol Urine WBC (Auto) Salicylates < 0.3 L Hepatitis C Antibody 05/08/17 05/09/17 05/09/17 Unknown 00:24 06:00 WBC RBC Hgb Hct MCV MCH RDW Lymph % (Auto) [place] % (Auto) Lymph # [place] # Seg Neutrophils % Seg Neuts % (Manual) Lymphocytes % (Manual) Seg Neutrophils # Seg Neutrophils # Man Lymphocytes # (Manual) PT INR POC ABG pH 7.283 L POC ABG pCO2 49.9 H POC ABG pO2 249 H Chloride Carbon Dioxide BUN Creatinine Glucose POC Glucose Lactic Acid Calcium Alkaline Phosphatase Total Creatine Kinase 19 L CK-MB (CK-2) Rel Index 11.0 H Troponin T 0.612 H* C-Reactive Protein Total Protein Albumin LDL Cholesterol Direct 21 L HDL Cholesterol 27 L Urine WBC (Auto) 16.0 H Salicylates Hepatitis C Antibody 05/09/17 05/09/17 05/09/17 06:00 06:00 08:52 WBC 11.7 H RBC 2.67 L Hgb 9.3 L Hct 30.0 L MCV 112 H MCH 35 H RDW 24.4 H Lymph % (Auto) [place] % (Auto) Lymph # [place] # Seg Neutrophils % Seg Neuts % (Manual) Lymphocytes % (Manual) Seg Neutrophils # Seg Neutrophils # Man Lymphocytes # (Manual) PT INR POC ABG pH 7.323 L POC ABG pCO2 POC ABG pO2 143 H Chloride Carbon Dioxide BUN 24 H Creatinine 2.9 H Glucose 172 H POC Glucose Lactic Acid Calcium 7.7 L Alkaline Phosphatase Total Creatine Kinase CK-MB (CK-2) Rel Index Troponin T C-Reactive Protein Total Protein Albumin LDL Cholesterol Direct HDL Cholesterol Urine WBC (Auto) Salicylates Hepatitis C Antibody 05/09/17 05/09/17 05/11/17 14:00 17:00 06:09 WBC 11.4 H RBC 2.66 L Hgb 9.1 L Hct 29.3 L MCV 110 H MCH 34 H RDW 23.1 H Lymph % (Auto) 4.2 L [place] % (Auto) 12.7 H Lymph # 0.5 L [place] # 1.4 H Seg Neutrophils % 82.5 H Seg Neuts % (Manual) Lymphocytes % (Manual) Seg Neutrophils # 9.4 H Seg Neutrophils # Man Lymphocytes # (Manual) PT INR POC ABG pH POC ABG pCO2 POC ABG pO2 Chloride Carbon Dioxide BUN Creatinine Glucose POC Glucose Lactic Acid Calcium Alkaline Phosphatase Total Creatine Kinase 24 L CK-MB (CK-2) Rel Index 9.1 H Troponin T 0.654 H* C-Reactive Protein Total Protein Albumin LDL Cholesterol Direct HDL Cholesterol Urine WBC (Auto) Salicylates Hepatitis C Antibody Reactive A 05/11/17 05/11/17 05/11/17 06:09 08:20 11:34 WBC RBC Hgb Hct MCV MCH RDW Lymph % (Auto) [place] % (Auto) Lymph # [place] # Seg Neutrophils % Seg Neuts % (Manual) Lymphocytes % (Manual) Seg Neutrophils # Seg Neutrophils # Man Lymphocytes # (Manual) PT INR POC ABG pH POC ABG pCO2 POC ABG pO2 Chloride 95.6 L Carbon Dioxide 20 L BUN 24 H Creatinine 3.4 H Glucose 134 H POC Glucose 154 H 149 H Lactic Acid Calcium Alkaline Phosphatase Total Creatine Kinase CK-MB (CK-2) Rel Index Troponin T C-Reactive Protein Total Protein Albumin LDL Cholesterol Direct HDL Cholesterol Urine WBC (Auto) Salicylates Hepatitis C Antibody 05/11/17 05/11/17 05/11/17 15:30 16:27 21:58 WBC RBC Hgb Hct MCV MCH RDW Lymph % (Auto) [place] % (Auto) Lymph # [place] # Seg Neutrophils % Seg Neuts % (Manual) Lymphocytes % (Manual) Seg Neutrophils # Seg Neutrophils # Man Lymphocytes # (Manual) PT INR POC ABG pH POC ABG pCO2 POC ABG pO2 Chloride Carbon Dioxide BUN Creatinine Glucose POC Glucose 163 H 199 H Lactic Acid Calcium Alkaline Phosphatase Total Creatine Kinase CK-MB (CK-2) Rel Index Troponin T C-Reactive Protein 44.70 H Total Protein Albumin LDL Cholesterol Direct HDL Cholesterol Urine WBC (Auto) Salicylates Hepatitis C Antibody 05/12/17 13:10 WBC RBC Hgb Hct MCV MCH RDW Lymph % (Auto) [place] % (Auto) Lymph # [place] # Seg Neutrophils % Seg Neuts % (Manual) Lymphocytes % (Manual) Seg Neutrophils # Seg Neutrophils # Man Lymphocytes # (Manual) PT INR POC ABG pH POC ABG pCO2 POC ABG pO2 66 L Chloride Carbon Dioxide BUN Creatinine Glucose POC Glucose Lactic Acid Calcium Alkaline Phosphatase Total Creatine Kinase CK-MB (CK-2) Rel Index Troponin T C-Reactive Protein Total Protein Albumin LDL Cholesterol Direct HDL Cholesterol Urine WBC (Auto) Salicylates Hepatitis C Antibody
--- NOTE | 2017-05-12 14:05 | Progress Note ---
Assessment and Plan Assessment and plan: --Acute on chronic respiratory failure; secondary to fluid overload/MRSA pneumonia oxygen titrate O2 sats to more than 90%, HD per schedule, BiPAP/intubate as needed. Pulmonary following --Bilateral pneumonia, positive for MRSA, Started Zyvox, ID following --Sepsis/possible septic shock; received Levophed few days ago, monitor blood pressures, start Levophed as needed --Hypotension; patient's blood pressures have been in the lower range, closely monitor, Levophed if no improvement --Metabolic encephalopathy at the time of admission; intubated to protect the airway s/p extubation, continue oxygen titrate O2 sats to more than 90% and supportive care --Positive cardiac enzymes; probably nonspecific secondary to end-stage renal disease --Coronary artery disease s/p PCI : Continue current cardiac medications, cardio following --Cardiomyopathy ejection fraction of 40% 04/2016 --End-stage renal disease on hemodialysis, HD per schedule --Hypertension; hold antihypertensives, blood pressure is in the lower range --Dyslipidemia; and new lipid-lowering medications --DVT prophylaxis; heparin renal dose Cardiology, pulmonary, nephrology, ID recommendations noted and appreciated Disposition; transfer the patient to ICU for close observation Critical care time 32 minutes The high probability of a clinically significant, sudden or life threatening deterioration of the [cardiovascular, pulmonary, infectious, renal and neuro] system(s) required my full and direct attention, intervention and personal management. The aggregate critical care time was [32] minutes. This time is in addition to time spent performing reported procedures but includes the following : [] Data Review and interpretation [] Patient assessment and monitoring of vital signs [] Documentation [] Medication orders and management History Interval history: Patient seen and examined in hemodialysis unit In acute respiratory failure, hypotensive, did not receive hemodialysis HD nurse reports that patient is unstable for HD in dialysis unit Patient is lethargic mild distress, responding to very simple questions Vital signs reviewed We'll transfer the patient to ICU, discussed with ICU charge nurse And transfer orders given Hospitalist Physical - Constitutional Vitals: Temp Pulse Resp BP Pulse Ox 98.7 F 106 H 23 95/61 96 05/12/17 09:06 05/12/17 11:50 05/12/17 11:50 05/12/17 11:50 05/12/17 11:50 General appearance: Present: mild distress, cachectic, other (Lethargic) - EENT Eyes: Present: PERRL, EOM intact - Neck Neck: Present: supple, normal ROM - Respiratory Respiratory effort: labored (mild distress) Respiratory: bilateral: diminished, rales, negative: rhonchi, wheezing - Cardiovascular Rhythm: regular Heart Sounds: Present: S1 & S2 - Extremities Extremities: no ischemia Extremity abnormal: edema - Abdominal General gastrointestinal: soft, non-tender, non-distended, normal bowel sounds - Integumentary Integumentary: Present: clear, warm - Psychiatric Psychiatric: other (lethergic) - Neurologic Neurologic: moves all extremities Results - Labs CBC & Chem 7: 05/11/17 06:09 05/11/17 06:09 Labs: Laboratory Last Values WBC 11.4 K/mm3 (4.5-11.0) H 05/11/17 06:09 RBC 2.66 M/mm3 (3.65-5.03) L 05/11/17 06:09 Hgb 9.1 gm/dl (10.1-14.3) L 05/11/17 06:09 Hct 29.3 % (30.3-42.9) L 05/11/17 06:09 MCV 110 fl (79-97) H 05/11/17 06:09 MCH 34 pg (28-32) H 05/11/17 06:09 MCHC 31 % (30-34) 05/11/17 06:09 RDW 23.1 % (13.2-15.2) H 05/11/17 06:09 Plt Count 252 K/mm3 (140-440) 05/11/17 06:09 Lymph % (Auto) 4.2 % (13.4-35.0) L 05/11/17 06:09 [place] % (Auto) 12.7 % (0.0-7.3) H 05/11/17 06:09 Eos % (Auto) 0.3 % (0.0-4.3) 05/11/17 06:09 Baso % (Auto) 0.3 % (0.0-1.8) 05/11/17 06:09 Lymph # 0.5 K/mm3 (1.2-5.4) L 05/11/17 06:09 [place] # 1.4 K/mm3 (0.0-0.8) H 05/11/17 06:09 Eos # 0.0 K/mm3 (0.0-0.4) 05/11/17 06:09 Baso # 0.0 K/mm3 (0.0-0.1) 05/11/17 06:09 Add Manual Diff Complete 05/08/17 21:25 Total Counted 100 05/08/17 21:25 Seg Neutrophils % 82.5 % (40.0-70.0) H 05/11/17 06:09 Seg Neuts % (Manual) 92.0 % (40.0-70.0) H 05/08/17 21:25 Band Neutrophils % 0 % 05/08/17 21:25 Lymphocytes % (Manual) 6.0 % (13.4-35.0) L 05/08/17 21:25 Reactive Lymphs % (Man) 0 % 05/08/17 21:25 Monocytes % (Manual) 2.0 % (0.0-7.3) 05/08/17 21:25 Eosinophils % (Manual) 0 % (0.0-4.3) 05/08/17 21:25 Basophils % (Manual) 0 % (0.0-1.8) 05/08/17 21:25 Metamyelocytes % 0 % 05/08/17 21:25 Myelocytes % 0 % 05/08/17 21:25 Promyelocytes % 0 % 05/08/17 21:25 Blast Cells % 0 % 05/08/17 21:25 Nucleated RBC % Not Reportable 05/08/17 21:25 Seg Neutrophils # 9.4 K/mm3 (1.8-7.7) H 05/11/17 06:09 Seg Neutrophils # Man 9.3 K/mm3 (1.8-7.7) H 05/08/17 21:25 Band Neutrophils # 0.0 K/mm3 05/08/17 21:25 Lymphocytes # (Manual) 0.6 K/mm3 (1.2-5.4) L 05/08/17 21:25 Abs React Lymphs (Man) 0.0 K/mm3 05/08/17 21:25 Monocytes # (Manual) 0.2 K/mm3 (0.0-0.8) 05/08/17 21:25 Eosinophils # (Manual) 0.0 K/mm3 (0.0-0.4) 05/08/17 21:25 Basophils # (Manual) 0.0 K/mm3 (0.0-0.1) 05/08/17 21:25 Metamyelocytes # 0.0 K/mm3 05/08/17 21:25 Myelocytes # 0.0 K/mm3 05/08/17 21:25 Promyelocytes # 0.0 K/mm3 05/08/17 21:25 Blast Cells # 0.0 K/mm3 05/08/17 21:25 WBC Morphology Not Reportable 05/08/17 21:25 Hypersegmented Neuts Not Reportable 05/08/17 21:25 Hyposegmented Neuts Not Reportable 05/08/17 21:25 Hypogranular Neuts Not Reportable 05/08/17 21:25 Smudge Cells Not Reportable 05/08/17 21:25 Toxic Granulation Not Reportable 05/08/17 21:25 Toxic Vacuolation Not Reportable 05/08/17 21:25 Dohle Bodies Not Reportable 05/08/17 21:25 Pelger-Huet Anomaly Not Reportable 05/08/17 21:25 Anthony Rods Not Reportable 05/08/17 21:25 Platelet Estimate Consistent w auto 05/08/17 21:25 Clumped Platelets Not Reportable 05/08/17 21:25 Plt Clumps, EDTA Not Reportable 05/08/17 21:25 Large Platelets Not Reportable 05/08/17 21:25 Giant Platelets Not Reportable 05/08/17 21:25 Platelet Satelliting Not Reportable 05/08/17 21:25 Plt Morphology Comment Not Reportable 05/08/17 21:25 RBC Morphology Not Reportable 05/08/17 21:25 Dimorphic RBCs Yes 05/08/17 21:25 Polychromasia 1+ 05/08/17 21:25 Hypochromasia Not Reportable 05/08/17 21:25 Poikilocytosis Not Reportable 05/08/17 21:25 Anisocytosis Not Reportable 05/08/17 21:25 Microcytosis 1+ 05/08/17 21:25 Macrocytosis 1+ 05/08/17 21:25 Spherocytes Not Reportable 05/08/17 21:25 Pappenheimer Bodies Not Reportable 05/08/17 21:25 Sickle Cells Not Reportable 05/08/17 21:25 Target Cells Not Reportable 05/08/17 21:25 Tear Drop Cells Few 05/08/17 21:25 Ovalocytes Not Reportable 05/08/17 21:25 Helmet Cells Not Reportable 05/08/17 21:25 Milligan-Hensley Bodies Not Reportable 05/08/17 21:25 Clay Rings Not Reportable 05/08/17 21:25 Anthony Cells Not Reportable 05/08/17 21:25 Bite Cells Not Reportable 05/08/17 21:25 Crenated Cell Not Reportable 05/08/17 21:25 Elliptocytes Not Reportable 05/08/17 21:25 Acanthocytes (Spur) Not Reportable 05/08/17 21:25 Rouleaux Not Reportable 05/08/17 21:25 Hemoglobin C Crystals Not Reportable 05/08/17 21:25 Schistocytes Not Reportable 05/08/17 21:25 Malaria parasites Not Reportable 05/08/17 21:25 Jose Bodies Not Reportable 05/08/17 21:25 Hem Pathologist Commnt No 05/08/17 21:25 PT 15.2 Sec. (12.2-14.9) H 05/08/17 21:25 INR 1.14 (0.87-1.13) H 05/08/17 21:25 POC ABG pH 7.450 (7.35-7.45) 05/12/17 13:10 POC ABG pCO2 36.7 (35-45) 05/12/17 13:10 POC ABG pO2 66 (80-105) L 05/12/17 13:10 POC ABG HCO3 25.5 05/12/17 13:10 POC ABG Total CO2 27 05/12/17 13:10 POC ABG O2 Sat 94 05/12/17 13:10 POC ABG Base Excess 2 05/12/17 13:10 FiO2 25 % 05/12/17 13:10 Sodium 145 mmol/L (137-145) 05/11/17 06:09 Potassium 4.4 mmol/L (3.6-5.0) 05/11/17 06:09 Chloride 95.6 mmol/L (98-107) L 05/11/17 06:09 Carbon Dioxide 20 mmol/L (22-30) L 05/11/17 06:09 Anion Gap 34 mmol/L 05/11/17 06:09 BUN 24 mg/dL (7-17) H 05/11/17 06:09 Creatinine 3.4 mg/dL (0.7-1.2) H 05/11/17 06:09 Estimated GFR 14 ml/min 05/11/17 06:09 BUN/Creatinine Ratio 7 % 05/11/17 06:09 Glucose 134 mg/dL (65-100) H 05/11/17 06:09 POC Glucose 199 (70-105) H 05/11/17 21:58 Lactic Acid 1.10 mmol/L (0.7-2.0) 05/10/17 05:58 Calcium 9.1 mg/dL (8.4-10.2) D 05/11/17 06:09 Total Bilirubin 0.60 mg/dL (0.1-1.2) 05/08/17 22:42 AST 22 units/L (5-40) 05/08/17 22:42 ALT 18 units/L (7-56) 05/08/17 22:42 Alkaline Phosphatase 258 units/L (35-129) H 05/08/17 22:42 Total Creatine Kinase 24 units/L (30-135) L 05/09/17 14:00 CK-MB (CK-2) 2.2 ng/mL (0.0-4.0) 05/09/17 14:00 CK-MB (CK-2) Rel Index 9.1 (0-4) H 05/09/17 14:00 Troponin T 0.654 ng/mL (0.00-0.029) H* 05/09/17 14:00 C-Reactive Protein 44.70 mg/dL (0.00-1.30) H 05/11/17 15:30 Total Protein 5.2 g/dL (6.3-8.2) L 05/08/17 22:42 Albumin 2.9 g/dL (3.9-5) L 05/08/17 22:42 Albumin/Globulin Ratio 1.3 % 05/08/17 22:42 Triglycerides 125 mg/dL (2-149) 05/09/17 06:00 Cholesterol 73 mg/dL (50-199) 05/09/17 06:00 LDL Cholesterol Direct 21 mg/dL (50-130) L 05/09/17 06:00 HDL Cholesterol 27 mg/dL (40-59) L 05/09/17 06:00 Cholesterol/HDL Ratio 2.70 % 05/09/17 06:00 Urine Color Yellow (Yellow) 05/08/17 Unknown Urine Turbidity Clear (Clear) 05/08/17 Unknown Urine pH 7.0 (5.0-7.0) 05/08/17 Unknown Ur Specific [place] 1.014 (1.003-1.030) 05/08/17 Unknown Urine Protein 100 mg/dl mg/dL (Negative) 05/08/17 Unknown Urine Glucose (UA) 150 mg/dL (Negative) 05/08/17 Unknown Urine Ketones Neg mg/dL (Negative) 05/08/17 Unknown Urine Blood Sm (Negative) 05/08/17 Unknown Urine Nitrite Neg (Negative) 05/08/17 Unknown Urine Bilirubin Neg (Negative) 05/08/17 Unknown Urine Urobilinogen < 2.0 mg/dL (<2.0) 05/08/17 Unknown Ur Leukocyte Esterase Tr (Negative) 05/08/17 Unknown Urine WBC (Auto) 16.0 /HPF (0.0-6.0) H 05/08/17 Unknown Urine RBC (Auto) 3.0 /HPF (0.0-6.0) 05/08/17 Unknown U Epithel Cells (Auto) < 1.0 /HPF (0-13.0) 05/08/17 Unknown Urine Bacteria (Auto) 1+ /HPF (Negative) 05/08/17 Unknown Salicylates < 0.3 mg/dL (2.8-20.0) L 05/08/17 21:35 Acetaminophen < 15.0 ug/mL (10.0-30.0) 05/08/17 21:35 Hepatitis A IgM Ab Non-reactive (NonReactive) 05/09/17 17:00 Hep Bs Antigen Non-reactive (Negative) 05/09/17 17:00 Hep B Core IgM Ab Non-reactive (NonReactive) 05/09/17 17:00 Hepatitis C Antibody Reactive (NonReactive) A 05/09/17 17:00
--- NOTE | 2017-05-12 14:40 | Progress Note ---
Assessment and Plan ESRD on hemodialysis: Volume overload with pulmonary edema: -Via LUE AVF -Moved to ICU due to resp distress as well as hypotension and need for pressers for HD. STAT HD today with Levophed PRN to keep MAP>65 during HD. -Plan for HD again tomorrow with pressers. Keep In ICU until pt is able to dialyze without levophed need. -Renally dose all meds -Check CBC, BMP, Mg, Phos daily Hypoxic Respiratory failure: -On bipap. From Pulm edema. -HD today and tomorrow with UF -Moved to ICU today. Sepsis possibly due to urinary tract infection/Pneumonia Leukocytosis: -Follow Cx -On Abx -Per primary Systolic acute on chronic congestive heart failure: -UF with HD -Per primary Diabetes mellitus type 2: -Per primary Essential Hypertension, chronic currently hypotensive: -BP meds on hold as currently hypotensive from Sepsis and on levophed. Hyperlipidemia, chronic: -Continue statin -Target LDL <70 Anemia of chronic disease due to ESRD: -Epogen to keep Hg 10-12 Secondary hyperparathyroidism: -Can continue home sensipar when able to eat. Plan d/w HD RN and home restoration service supervisor at bedside. Pillo Goodman MD Nephrology, Hypertension, Dialysis, Transplantation Phone no: [phone] Subjective Date of service: 05/12/17 Principal diagnosis: ESRD Interval history: Moved to ICU due to hypotension, pt currently on bipap and in labored breathing. Objective - Exam Narrative Exam: GE: Lethargic, on on bipap HEENT: PERRLA Neck: No JVD CVS: RRR Chest: BL Crackles Abd: Soft/ND, BS+ Ext: No cce, LUE AVF with good thrill Neuro: Lethargic - Vital Signs Vital signs: Vital Signs - 12hr 05/12/17 05/12/17 05/12/17 04:50 07:10 09:06 Temperature 97.9 F 98.7 F Pulse Rate 101 H 82 Respiratory 22 20 Rate Blood Pressure 103/63 Blood Pressure 155/104 [Right] O2 Sat by Pulse 96 Oximetry 05/12/17 11:50 Temperature Pulse Rate 106 H Respiratory 23 Rate Blood Pressure 95/61 Blood Pressure [Right] O2 Sat by Pulse 96 Oximetry - Lab 05/11/17 06:09 05/11/17 06:09 Most recent lab results Calcium 9.1 mg/dL (8.4-10.2) D 05/11/17 06:09
--- NOTE | 2017-05-12 15:42 | XRay Report ---
Single view chest: Compared to 05/12/17. History: Status post L. IJ triple lumen. Findings: Cardiomegaly. Trachea is midline. Bibasilar ill-defined opacities without significant interval change. Suspected nodular density right perihilar area. No significant interval change. Impression: No significant interval change. Tip of the left venous catheter is in lower superior vena cava.
--- NOTE | 2017-05-12 15:50 | Operative Report ---
Operative Report Operative Report: Procedure: 1. LIJ central venous catheter placement 2. Ultrasound guided puncture of the LIJ vein. Date: 05/12/2017 Physician: Juliana Jackson MD Indication: 56-year-old female in need of pressor support Technique: The patient was placed in the supine position and prepped and draped in the usual sterile fashion. A timeout was performed. Local anesthetic was administered. Under direct ultrasound guidance, the LIJ vein was accessed with an 18-gauge needle. An 035 wire was advanced into the IVC. After serial tissue dilation, the triple lumen catheter was advanced, Aspiration and flushing was performed. The catheter was secured to the skin with 2-0 Ethilon suture. Sterile dressings were placed, and the patient was transported from the procedure area in stable condition. Findings: 1. Ultrasound demonstrates a patent and compressible RIJ vein. 2. There is successful placement of a 20 cm triple lumen central venous catheter via the LIJ vein. 3. Each lumen flushes and aspirates well. 4. Positioning of the catheter tip within the right atrium is confirmed by xray. The catheter is ready for use
[2017-05-12] MEDS ORDERED: LEVOPHED DRIP 4 MG/NS 250 ML 4 MG/250 ML BAG IV ONE (16:07)
[2017-05-13] MEDS: DESYREL PO SCH ×2 (00:56→22:09)
[2017-05-13] MEDS: NEURONTIN PO SCH ×4 (00:56→22:08)
[2017-05-13] MEDS: ZYVOX 600MG/300ML 600 MG/300 ML BAG IV SCH ×3 (01:01→16:05)
[2017-05-13] MEDS: LEVOPHED 8 MG in NACL 0.9% 250ML 242 ML IV SCH ×2 (02:36→14:47)
[2017-05-13 06:32] LABS: Hematocrit 31.5 % (30.3-42.9); Hemoglobin 9.9 gm/dl (10.1-14.3); Mean Corpuscular HGB Conc 31 % (30-34); Mean Corpuscular Hemoglobin 33 pg (28-32); Mean Corpuscular Volume 105 fl (79-97); Platelet Count 391 K/mm3 (140-440); Red Blood Count 3.02 M/mm3 (3.65-5.03)
[2017-05-13 06:33] LABS: Red Cell Distribution Width 22.9 % (13.2-15.2)
[2017-05-13 06:47] LABS: Calcium 9.3 mg/dL (8.4-10.2)
[2017-05-13] MEDS: SENSIPAR PO SCH ×3 (06:55→22:07)
[2017-05-13 07:42] LABS: Anisocytosis 1+; Basophils % (Manual) 0 % (0.0-1.8); Eosinophils % (Manual) 0 % (0.0-4.3); Poikilocytosis 1+; Tear Drop Cells 1+; Total Cells Counted 100
[2017-05-13 07:43] LABS: Ovalocytes 1+; Target Cells Few
--- NOTE | 2017-05-13 09:07 | Progress Note ---
Assessment and Plan Acute respiratory failure. Patient showed steady improvement in vital signs and respiratory status, after BiPAP yesterday. Now on Ventimask Sepsis. Patient elevated lactate. Blood pressure had been low initiated on norepinephrine now 5 g CHF with decompensation. Pending hemodialysis today Pneumonia, MRSA positive. On Zyvox ESRD decompensation Rec Continue Ventimask support Monitor hemodynamics and decreased norepinephrine in as tolerated maintain MAP of 65 or above Monitor response during hemodialysis. Chest PT for chest secretions Monitor WBC response Discussed with staff in detail. Orders reviewed. Critical care time was 31 minutes of [id number] evaluation and coordination of care. Subjective Date of service: 05/13/17 Principal diagnosis: MRSA pneumonia, shock,sepsis,ESRD Interval history: Some cough. Mostly asleep during the rounds today. Patient had been taken out of BiPAP and currently on V mask with comfortable breathing Objective Vital Signs - 12hr 05/12/17 05/12/17 05/12/17 21:15 21:30 21:45 Temperature Pulse Rate 110 H 113 H 108 H Respiratory 22 36 H 35 H Rate Blood Pressure 106/68 115/65 114/70 O2 Sat by Pulse 96 96 96 Oximetry 05/12/17 05/12/17 05/12/17 22:00 22:15 22:30 Temperature Pulse Rate 114 H 115 H 112 H Respiratory 24 49 H 29 H Rate Blood Pressure 107/63 105/60 105/67 O2 Sat by Pulse 96 96 96 Oximetry 05/12/17 05/12/17 05/12/17 22:45 23:00 23:15 Temperature Pulse Rate 110 H 111 H 109 H Respiratory 37 H 34 H 20 Rate Blood Pressure 109/62 115/68 111/67 O2 Sat by Pulse 96 96 Oximetry 05/12/17 05/12/17 05/12/17 23:30 23:33 23:44 Temperature 97.5 F L Pulse Rate 111 H 114 H Respiratory 51 H 35 H Rate Blood Pressure 113/66 113/66 O2 Sat by Pulse 94 97 Oximetry 05/12/17 05/13/17 05/13/17 23:45 00:00 00:15 Temperature Pulse Rate 111 H 109 H 111 H Respiratory 44 H 39 H 34 H Rate Blood Pressure 104/69 109/69 106/70 O2 Sat by Pulse 96 96 92 Oximetry 05/13/17 05/13/17 05/13/17 00:30 00:45 01:00 Temperature Pulse Rate 111 H 109 H 110 H Respiratory 52 H 35 H 32 H Rate Blood Pressure 103/62 105/64 104/66 O2 Sat by Pulse 98 98 97 Oximetry 05/13/17 05/13/17 05/13/17 01:15 01:30 01:45 Temperature Pulse Rate 110 H 112 H 114 H Respiratory 46 H 49 H 56 H Rate Blood Pressure 104/60 109/61 100/65 O2 Sat by Pulse 97 97 96 Oximetry 05/13/17 05/13/17 05/13/17 02:00 02:04 02:15 Temperature Pulse Rate 114 H 112 H 109 H Respiratory 49 H 38 H 44 H Rate Blood Pressure 110/56 100/65 96/65 O2 Sat by Pulse 96 98 97 Oximetry 05/13/17 05/13/17 05/13/17 02:30 02:45 03:00 Temperature Pulse Rate 109 H 107 H 111 H Respiratory 41 H 19 19 Rate Blood Pressure 94/56 98/62 102/66 O2 Sat by Pulse 91 95 97 Oximetry 05/13/17 05/13/17 05/13/17 03:10 03:15 03:30 Temperature 98.7 F Pulse Rate 111 H 106 H Respiratory 26 H 28 H Rate Blood Pressure 104/64 109/62 O2 Sat by Pulse 97 Oximetry 05/13/17 05/13/17 05/13/17 03:45 03:59 04:00 Temperature Pulse Rate 107 H 114 H Respiratory 27 H 35 H 33 H Rate Blood Pressure 109/61 105/58 O2 Sat by Pulse 98 96 Oximetry 05/13/17 05/13/17 05/13/17 04:15 04:30 04:45 Temperature Pulse Rate 113 H 113 H 114 H Respiratory 26 H 41 H 48 H Rate Blood Pressure 107/57 105/54 103/51 O2 Sat by Pulse 99 94 96 Oximetry 05/13/17 05/13/17 05/13/17 05:00 05:15 05:30 Temperature Pulse Rate 113 H 112 H 115 H Respiratory 39 H 20 34 H Rate Blood Pressure 103/58 119/50 119/53 O2 Sat by Pulse 95 98 95 Oximetry 05/13/17 05/13/17 05/13/17 05:45 06:00 06:15 Temperature Pulse Rate 109 H 106 H 105 H Respiratory 36 H 24 20 Rate Blood Pressure 94/57 98/57 109/64 O2 Sat by Pulse 95 Oximetry 05/13/17 05/13/17 06:30 06:45 Temperature Pulse Rate 105 H 111 H Respiratory 23 20 Rate Blood Pressure 112/68 109/65 O2 Sat by Pulse 99 96 Oximetry Constitutional: asleep, other (on V mask) ENT: oropharynx moist Neck: supple, no JVD, other (IJ lines in place) Effort: normal Ascultation: Bilateral: rales, rhonchi Percussion: Bilateral: not dull Cardiovascular: regular rate and rhythm Gastrointestinal: normoactive bowel sounds, soft, non-tender Integumentary: other (Patsy left-sided face) Extremities: no cyanosis, no edema Neurologic: CN II-XII normal, motor strength normal and, other (Limited exam, see above. Responds easily to calls) CBC and BMP: 05/13/17 05:30 05/13/17 05:30 ABG, PT/INR, D-dimer: ABG POC ABG pH 7.450 (7.35-7.45) 05/12/17 13:10 POC ABG pCO2 36.7 (35-45) 05/12/17 13:10 POC ABG pO2 66 (80-105) L 05/12/17 13:10 POC ABG HCO3 25.5 05/12/17 13:10 POC ABG Total CO2 27 05/12/17 13:10 POC ABG O2 Sat 94 05/12/17 13:10 PT/INR, D-dimer PT 15.2 Sec. (12.2-14.9) H 05/08/17 21:25 INR 1.14 (0.87-1.13) H 05/08/17 21:25 Abnormal lab findings: Abnormal Labs 05/08/17 05/08/17 05/08/17 21:25 21:25 21:25 WBC RBC 2.55 L Hgb 8.9 L Hct 28.1 L MCV 111 H MCH 35 H RDW 25.4 H Lymph % (Auto) [place] % (Auto) Lymph # [place] # Seg Neutrophils % Seg Neuts % (Manual) 92.0 H Lymphocytes % (Manual) 6.0 L Nucleated RBC % Seg Neutrophils # Seg Neutrophils # Man 9.3 H Lymphocytes # (Manual) 0.6 L Monocytes # (Manual) PT 15.2 H INR 1.14 H POC ABG pH POC ABG pCO2 POC ABG pO2 Chloride Carbon Dioxide BUN Creatinine Glucose POC Glucose Lactic Acid 2.50 H* Calcium Alkaline Phosphatase Total Creatine Kinase CK-MB (CK-2) Rel Index Troponin T C-Reactive Protein Total Protein Albumin LDL Cholesterol Direct HDL Cholesterol Urine WBC (Auto) Salicylates Hepatitis C Antibody 05/08/17 05/08/17 05/08/17 21:35 22:04 22:42 WBC RBC Hgb Hct MCV MCH RDW Lymph % (Auto) [place] % (Auto) Lymph # [place] # Seg Neutrophils % Seg Neuts % (Manual) Lymphocytes % (Manual) Nucleated RBC % Seg Neutrophils # Seg Neutrophils # Man Lymphocytes # (Manual) Monocytes # (Manual) PT INR POC ABG pH 7.271 L POC ABG pCO2 56.5 H POC ABG pO2 30 L Chloride 107.8 H Carbon Dioxide BUN 22 H Creatinine 2.6 H Glucose 202 H POC Glucose Lactic Acid Calcium 7.3 L Alkaline Phosphatase 258 H Total Creatine Kinase CK-MB (CK-2) Rel Index Troponin T C-Reactive Protein Total Protein 5.2 L Albumin 2.9 L LDL Cholesterol Direct HDL Cholesterol Urine WBC (Auto) Salicylates < 0.3 L Hepatitis C Antibody 05/08/17 05/09/17 05/09/17 Unknown 00:24 06:00 WBC RBC Hgb Hct MCV MCH RDW Lymph % (Auto) [place] % (Auto) Lymph # [place] # Seg Neutrophils % Seg Neuts % (Manual) Lymphocytes % (Manual) Nucleated RBC % Seg Neutrophils # Seg Neutrophils # Man Lymphocytes # (Manual) Monocytes # (Manual) PT INR POC ABG pH 7.283 L POC ABG pCO2 49.9 H POC ABG pO2 249 H Chloride Carbon Dioxide BUN Creatinine Glucose POC Glucose Lactic Acid Calcium Alkaline Phosphatase Total Creatine Kinase 19 L CK-MB (CK-2) Rel Index 11.0 H Troponin T 0.612 H* C-Reactive Protein Total Protein Albumin LDL Cholesterol Direct 21 L HDL Cholesterol 27 L Urine WBC (Auto) 16.0 H Salicylates Hepatitis C Antibody 05/09/17 05/09/17 05/09/17 06:00 06:00 08:52 WBC 11.7 H RBC 2.67 L Hgb 9.3 L Hct 30.0 L MCV 112 H MCH 35 H RDW 24.4 H Lymph % (Auto) [place] % (Auto) Lymph # [place] # Seg Neutrophils % Seg Neuts % (Manual) Lymphocytes % (Manual) Nucleated RBC % Seg Neutrophils # Seg Neutrophils # Man Lymphocytes # (Manual) Monocytes # (Manual) PT INR POC ABG pH 7.323 L POC ABG pCO2 POC ABG pO2 143 H Chloride Carbon Dioxide BUN 24 H Creatinine 2.9 H Glucose 172 H POC Glucose Lactic Acid Calcium 7.7 L Alkaline Phosphatase Total Creatine Kinase CK-MB (CK-2) Rel Index Troponin T C-Reactive Protein Total Protein Albumin LDL Cholesterol Direct HDL Cholesterol Urine WBC (Auto) Salicylates Hepatitis C Antibody 05/09/17 05/09/17 05/11/17 14:00 17:00 06:09 WBC 11.4 H RBC 2.66 L Hgb 9.1 L Hct 29.3 L MCV 110 H MCH 34 H RDW 23.1 H Lymph % (Auto) 4.2 L [place] % (Auto) 12.7 H Lymph # 0.5 L [place] # 1.4 H Seg Neutrophils % 82.5 H Seg Neuts % (Manual) Lymphocytes % (Manual) Nucleated RBC % Seg Neutrophils # 9.4 H Seg Neutrophils # Man Lymphocytes # (Manual) Monocytes # (Manual) PT INR POC ABG pH POC ABG pCO2 POC ABG pO2 Chloride Carbon Dioxide BUN Creatinine Glucose POC Glucose Lactic Acid Calcium Alkaline Phosphatase Total Creatine Kinase 24 L CK-MB (CK-2) Rel Index 9.1 H Troponin T 0.654 H* C-Reactive Protein Total Protein Albumin LDL Cholesterol Direct HDL Cholesterol Urine WBC (Auto) Salicylates Hepatitis C Antibody Reactive A 05/11/17 05/11/17 05/11/17 06:09 08:20 11:34 WBC RBC Hgb Hct MCV MCH RDW Lymph % (Auto) [place] % (Auto) Lymph # [place] # Seg Neutrophils % Seg Neuts % (Manual) Lymphocytes % (Manual) Nucleated RBC % Seg Neutrophils # Seg Neutrophils # Man Lymphocytes # (Manual) Monocytes # (Manual) PT INR POC ABG pH POC ABG pCO2 POC ABG pO2 Chloride 95.6 L Carbon Dioxide 20 L BUN 24 H Creatinine 3.4 H Glucose 134 H POC Glucose 154 H 149 H Lactic Acid Calcium Alkaline Phosphatase Total Creatine Kinase CK-MB (CK-2) Rel Index Troponin T C-Reactive Protein Total Protein Albumin LDL Cholesterol Direct HDL Cholesterol Urine WBC (Auto) Salicylates Hepatitis C Antibody 05/11/17 05/11/17 05/11/17 15:30 16:27 21:58 WBC RBC Hgb Hct MCV MCH RDW Lymph % (Auto) [place] % (Auto) Lymph # [place] # Seg Neutrophils % Seg Neuts % (Manual) Lymphocytes % (Manual) Nucleated RBC % Seg Neutrophils # Seg Neutrophils # Man Lymphocytes # (Manual) Monocytes # (Manual) PT INR POC ABG pH POC ABG pCO2 POC ABG pO2 Chloride Carbon Dioxide BUN Creatinine Glucose POC Glucose 163 H 199 H Lactic Acid Calcium Alkaline Phosphatase Total Creatine Kinase CK-MB (CK-2) Rel Index Troponin T C-Reactive Protein 44.70 H Total Protein Albumin LDL Cholesterol Direct HDL Cholesterol Urine WBC (Auto) Salicylates Hepatitis C Antibody 05/12/17 05/12/17 05/12/17 08:42 13:10 16:05 WBC RBC Hgb Hct MCV MCH RDW Lymph % (Auto) [place] % (Auto) Lymph # [place] # Seg Neutrophils % Seg Neuts % (Manual) Lymphocytes % (Manual) Nucleated RBC % Seg Neutrophils # Seg Neutrophils # Man Lymphocytes # (Manual) Monocytes # (Manual) PT INR POC ABG pH POC ABG pCO2 POC ABG pO2 66 L Chloride Carbon Dioxide BUN Creatinine Glucose POC Glucose 190 H Lactic Acid 2.60 H* Calcium Alkaline Phosphatase Total Creatine Kinase CK-MB (CK-2) Rel Index Troponin T C-Reactive Protein Total Protein Albumin LDL Cholesterol Direct HDL Cholesterol Urine WBC (Auto) Salicylates Hepatitis C Antibody 05/12/17 05/13/17 05/13/17 21:42 05:12 05:30 WBC 22.0 H RBC 3.02 L Hgb 9.9 L Hct MCV 105 H MCH 33 H RDW 22.9 H Lymph % (Auto) [place] % (Auto) Lymph # [place] # Seg Neutrophils % Seg Neuts % (Manual) 89.0 H Lymphocytes % (Manual) 6.0 L Nucleated RBC % 1.0 H Seg Neutrophils # Seg Neutrophils # Man 19.6 H Lymphocytes # (Manual) Monocytes # (Manual) 0.9 H PT INR POC ABG pH POC ABG pCO2 POC ABG pO2 Chloride Carbon Dioxide BUN Creatinine Glucose POC Glucose 153 H 182 H Lactic Acid Calcium Alkaline Phosphatase Total Creatine Kinase CK-MB (CK-2) Rel Index Troponin T C-Reactive Protein Total Protein Albumin LDL Cholesterol Direct HDL Cholesterol Urine WBC (Auto) Salicylates Hepatitis C Antibody 05/13/17 05:30 WBC RBC Hgb Hct MCV MCH RDW Lymph % (Auto) [place] % (Auto) Lymph # [place] # Seg Neutrophils % Seg Neuts % (Manual) Lymphocytes % (Manual) Nucleated RBC % Seg Neutrophils # Seg Neutrophils # Man Lymphocytes # (Manual) Monocytes # (Manual) PT INR POC ABG pH POC ABG pCO2 POC ABG pO2 Chloride 90.8 L Carbon Dioxide 21 L BUN 28 H Creatinine 3.1 H Glucose 172 H POC Glucose Lactic Acid Calcium Alkaline Phosphatase Total Creatine Kinase CK-MB (CK-2) Rel Index Troponin T C-Reactive Protein Total Protein Albumin LDL Cholesterol Direct HDL Cholesterol Urine WBC (Auto) Salicylates Hepatitis C Antibody
[2017-05-13] MEDS: HEPARIN SUB-Q SCH ×2 (09:33→22:05)
[2017-05-13] MEDS: HABITROL TD SCH (09:33)
[2017-05-13] MEDS: BABY ASPIRIN PO SCH (09:34)
[2017-05-13] MEDS: RENVELA PO SCH ×3 (09:34→19:27)
[2017-05-13] MEDS: ZOLOFT PO SCH (09:34)
--- NOTE | 2017-05-13 10:08 | Progress Note ---
Assessment and Plan Assessment: Acute on chronic systolic heart failure [facility] - echo 04/17/2017 showed EF 40% Elevated troponins - ECG with NAF; pt with no c/o chest pain; currently nonspecific in setting of acutely decompensated HF, sepsis, and ESRD Acute respiratory failure - s/p extubation AMS - head CT with NAF MRSA pneumonia/atelectasis / sepsis ESRD on HD - TTS HD schedule CAD, OR with PCI of mid LAD and mid circ at [facility] (01/20/2016), NSTEMI with subacute left circ and LAD stent thrombosis s/p stent of left circ and balloon angioplasty alone of LAD (02/22/2016) DM H/o HTN - with hypotension since admission HLP Anemia Hepatitis C Moderate to severe TR Pulmonary HTN - RVSP 57.9mmHg Plan: Volume optimization as BPs permit per nephrology. No indication for repeat echo given recent echo 04/17/2017. No BB, ACEI/ARB, and/or anti-hypertensives at this time given persistent hypotension since admission. The patient has been seen in conjunction with Dr. Menon who agrees with the assessment and plan of care. Subjective Date of service: 05/13/17 Principal diagnosis: MRSA pneumonia, shock,sepsis,ESRD Interval history: pt tx to ICU overnight. undergoing HD currently. remains encephalopathic. Objective Last Vital Signs Temp 98.7 F 05/13/17 03:10 Pulse 94 H 05/13/17 09:45 Resp 30 H 05/13/17 09:45 BP 97/62 05/13/17 09:45 Pulse Ox 98 05/13/17 09:45 - Physical Examination General: Other (confused; lethargic) HEENT: Positive: PERRL, Normocephaly, Mucus Membranes Moist Neck: Positive: neck supple, trachea midline Cardiac: Positive: Reg Rate and Rhythm, S1/S2 Lungs: Positive: Rales, Rhonchi Neuro: Positive: Other (SOILA, confused & lethargic ) Abdomen: Positive: Soft. Negative: Tender Skin: Positive: Clear. Negative: Rash, Wound Musculoskeletal: No Fluid Collection, No Pain, Normal Range of Motion Extremities: Absent: edema - Labs and Meds CBC 05/13/17 Range/Units 05:30 WBC 22.0 H (4.5-11.0) K/mm3 RBC 3.02 L (3.65-5.03) M/mm3 Hgb 9.9 L (10.1-14.3) gm/dl Hct 31.5 (30.3-42.9) % Plt Count 391 (140-440) K/mm3 Comprehensive Metabolic Panel 05/13/17 Range/Units 05:30 Sodium 139 (137-145) mmol/L Potassium 4.0 (3.6-5.0) mmol/L Chloride 90.8 L (98-107) mmol/L Carbon Dioxide 21 L (22-30) mmol/L BUN 28 H (7-17) mg/dL Creatinine 3.1 H (0.7-1.2) mg/dL Glucose 172 H (65-100) mg/dL Calcium 9.3 (8.4-10.2) mg/dL - Imaging and Cardiology EKG: report reviewed, image reviewed Cardiac cath: report reviewed (OR and PCI of mid LAD and mid circ on 01/20/2016; subacute left circ and LAD stent thrombosis s/p stent of left circ and balloon angioplasty alone of LAD (02/22/2016)) - Telemetry EKG Rhythm: Sinus Rhythm - EKG Sinus rhythms and dysrhythmias: sinus rhythm AV and intraventricular conduction: right bundle branch block (incomplete)
--- NOTE | 2017-05-13 10:53 | Progress Note ---
Assessment and Plan Assessment: 1) Sepsis with septic shock: she is back on pressors/increasing leukocytosis. Etiology most likely pneumonia. 2) Bilateral pneumonia: -tracheal asp + MRSA -CRP very high at 44 3) Resp failure - on ventimask 4) HBV / Ascitis 5) ESRD on HD 6) CAD 7) CHF with exacerbation 8) LALO - worsening on HD now Plan: -continue zyvox day 3 -obtain chest CT -contact isolation poor prognosis Thank you Dr Gutierrez for your consultation, will follow up with you. Tamera Butler MD Infectious Diseases Specialist [facility], [place] [facility] ([facility]) M [phone] O [phone] Subjective Date of service: 05/13/17 Principal diagnosis: MRSA pneumonia, shock,sepsis,ESRD Interval history: Patient decompensated and was transferred to the ICU, now on ventimask, on levophed Microbiology: Blood cultures: 05/09 ngtd Urine cultures: Respiratory cultures: TA 05/09 MRSA Current Antimicrobials: zyvox 05/12 Previous Antimicrobials: Ceftriaxone Objective - Exam Narrative Exam: General appearance: somnolent in mild resp distress + venti mask O2 Eyes: anicteric sclerae, moist conjunctivae; no lid-lag; PERRLA HENT: Atraumatic; +mask Neck: Trachea midline; supple, no thyromegaly or lymphadenopathy Lungs: ector rhonchi CV: tachy Abdomen: Soft, non-tender Extremities: No peripheral edema or extremity lymphadenopathy Skin: +multiple ecchymoses left forehead Psych: somnolent confused Neuro: somnolent Moving all extermities Lines: No CVL / PICC - Constitutional Vitals: Vital Signs Temp Pulse Resp BP Pulse Ox 98.7 F 105 H 27 H 110/69 99 05/13/17 08:00 05/13/17 10:30 05/13/17 10:30 05/13/17 10:30 05/13/17 10:30 Temperature -Last 24 Hours Temperature 98.7 F Temperature 98.7 F Temperature 97.5 F Temperature 98.1 F Temperature 97.8 F Temperature 98.7 F - Labs CBC & Chem 7: 05/13/17 05:30 05/13/17 05:30 Labs: Abnormal lab results 05/12/17 05/12/17 05/12/17 Range/Units 08:42 13:10 16:05 WBC (4.5-11.0) K/mm3 RBC (3.65-5.03) M/mm3 Hgb (10.1-14.3) gm/dl MCV (79-97) fl MCH (28-32) pg RDW (13.2-15.2) % Seg Neuts % (Manual) (40.0-70.0) % Lymphocytes % (Manual) (13.4-35.0) % Nucleated RBC % (0.0-0.9) % Seg Neutrophils # Man (1.8-7.7) K/mm3 Monocytes # (Manual) (0.0-0.8) K/mm3 POC ABG pO2 66 L (80-105) Chloride (98-107) mmol/L Carbon Dioxide (22-30) mmol/L BUN (7-17) mg/dL Creatinine (0.7-1.2) mg/dL Glucose (65-100) mg/dL POC Glucose 190 H (70-105) Lactic Acid 2.60 H* (0.7-2.0) mmol/L 05/12/17 05/13/17 05/13/17 Range/Units 21:42 05:12 05:30 WBC 22.0 H (4.5-11.0) K/mm3 RBC 3.02 L (3.65-5.03) M/mm3 Hgb 9.9 L (10.1-14.3) gm/dl MCV 105 H (79-97) fl MCH 33 H (28-32) pg RDW 22.9 H (13.2-15.2) % Seg Neuts % (Manual) 89.0 H (40.0-70.0) % Lymphocytes % (Manual) 6.0 L (13.4-35.0) % Nucleated RBC % 1.0 H (0.0-0.9) % Seg Neutrophils # Man 19.6 H (1.8-7.7) K/mm3 Monocytes # (Manual) 0.9 H (0.0-0.8) K/mm3 POC ABG pO2 (80-105) Chloride (98-107) mmol/L Carbon Dioxide (22-30) mmol/L BUN (7-17) mg/dL Creatinine (0.7-1.2) mg/dL Glucose (65-100) mg/dL POC Glucose 153 H 182 H (70-105) Lactic Acid (0.7-2.0) mmol/L 05/13/17 Range/Units 05:30 WBC (4.5-11.0) K/mm3 RBC (3.65-5.03) M/mm3 Hgb (10.1-14.3) gm/dl MCV (79-97) fl MCH (28-32) pg RDW (13.2-15.2) % Seg Neuts % (Manual) (40.0-70.0) % Lymphocytes % (Manual) (13.4-35.0) % Nucleated RBC % (0.0-0.9) % Seg Neutrophils # Man (1.8-7.7) K/mm3 Monocytes # (Manual) (0.0-0.8) K/mm3 POC ABG pO2 (80-105) Chloride 90.8 L (98-107) mmol/L Carbon Dioxide 21 L (22-30) mmol/L BUN 28 H (7-17) mg/dL Creatinine 3.1 H (0.7-1.2) mg/dL Glucose 172 H (65-100) mg/dL POC Glucose (70-105) Lactic Acid (0.7-2.0) mmol/L
--- NOTE | 2017-05-13 12:13 | Progress Note ---
Assessment and Plan - Patient Problems (1) ESRD (end stage renal disease) Current Visit: Yes Status: Chronic Plan to address problem: Hemodialysis today as ordered Fluid restriction of 1 liter per day Renally dose medications Monitor I/O's Obtain daily weights Assess dialysis needs daily (2) Hypertension Current Visit: Yes Status: Acute Plan to address problem: On Levophed for Hypotension (3) Diabetes mellitus Current Visit: Yes Status: Acute Plan to address problem: As per Attending (4) Acute hypoxemic respiratory failure Current Visit: No Status: Acute Plan to address problem: S/P intubation Subjective Date of service: 05/13/17 Principal diagnosis: MRSA pneumonia, shock,sepsis,ESRD Interval history: Patient seen lying in bed. Receiving hemodialysis- 4100 ml removed on Levophed drip. Objective - Vital Signs Vital signs: Vital Signs - 12hr 05/13/17 05/13/17 05/13/17 00:15 00:30 00:45 Temperature Pulse Rate 111 H 111 H 109 H Respiratory 34 H 52 H 35 H Rate Blood Pressure 106/70 103/62 105/64 O2 Sat by Pulse 92 98 98 Oximetry 05/13/17 05/13/17 05/13/17 01:00 01:15 01:30 Temperature Pulse Rate 110 H 110 H 112 H Respiratory 32 H 46 H 49 H Rate Blood Pressure 104/66 104/60 109/61 O2 Sat by Pulse 97 97 97 Oximetry 05/13/17 05/13/17 05/13/17 01:45 02:00 02:04 Temperature Pulse Rate 114 H 114 H 112 H Respiratory 56 H 49 H 38 H Rate Blood Pressure 100/65 110/56 100/65 O2 Sat by Pulse 96 96 98 Oximetry 05/13/17 05/13/17 05/13/17 02:15 02:30 02:45 Temperature Pulse Rate 109 H 109 H 107 H Respiratory 44 H 41 H 19 Rate Blood Pressure 96/65 94/56 98/62 O2 Sat by Pulse 97 91 95 Oximetry 05/13/17 05/13/17 05/13/17 03:00 03:10 03:15 Temperature 98.7 F Pulse Rate 111 H 111 H Respiratory 19 26 H Rate Blood Pressure 102/66 104/64 O2 Sat by Pulse 97 97 Oximetry 05/13/17 05/13/17 05/13/17 03:30 03:45 03:59 Temperature Pulse Rate 106 H 107 H Respiratory 28 H 27 H 35 H Rate Blood Pressure 109/62 109/61 O2 Sat by Pulse 98 Oximetry 05/13/17 05/13/17 05/13/17 04:00 04:15 04:30 Temperature Pulse Rate 114 H 113 H 113 H Respiratory 33 H 26 H 41 H Rate Blood Pressure 105/58 107/57 105/54 O2 Sat by Pulse 96 99 94 Oximetry 05/13/17 05/13/17 05/13/17 04:45 05:00 05:15 Temperature Pulse Rate 114 H 113 H 112 H Respiratory 48 H 39 H 20 Rate Blood Pressure 103/51 103/58 119/50 O2 Sat by Pulse 96 95 98 Oximetry 05/13/17 05/13/17 05/13/17 05:30 05:45 06:00 Temperature Pulse Rate 115 H 109 H 106 H Respiratory 34 H 36 H 24 Rate Blood Pressure 119/53 94/57 98/57 O2 Sat by Pulse 95 95 Oximetry 05/13/17 05/13/17 05/13/17 06:15 06:30 06:45 Temperature Pulse Rate 105 H 105 H 111 H Respiratory 20 23 20 Rate Blood Pressure 109/64 112/68 109/65 O2 Sat by Pulse 99 96 Oximetry 05/13/17 05/13/17 05/13/17 07:00 07:15 07:30 Temperature Pulse Rate 107 H 108 H 111 H Respiratory 18 25 H 24 Rate Blood Pressure 115/65 103/70 104/68 O2 Sat by Pulse 97 96 98 Oximetry 05/13/17 05/13/17 05/13/17 07:45 08:00 08:15 Temperature 98.7 F Pulse Rate 109 H 112 H 106 H Respiratory 24 27 H 24 Rate Blood Pressure 112/69 108/63 108/64 O2 Sat by Pulse 98 96 97 Oximetry 05/13/17 05/13/17 05/13/17 08:30 08:45 09:00 Temperature Pulse Rate 100 H 98 H 98 H Respiratory 17 25 H 30 H Rate Blood Pressure 97/61 100/61 100/64 O2 Sat by Pulse 98 98 Oximetry 05/13/17 05/13/17 05/13/17 09:15 09:30 09:45 Temperature Pulse Rate 103 H 99 H 94 H Respiratory 30 H 27 H 30 H Rate Blood Pressure 99/58 101/62 97/62 O2 Sat by Pulse 97 97 98 Oximetry 05/13/17 05/13/17 05/13/17 10:00 10:15 10:30 Temperature Pulse Rate 91 H 104 H 105 H Respiratory 31 H 27 H 27 H Rate Blood Pressure 95/53 92/59 110/69 O2 Sat by Pulse 97 97 99 Oximetry - General Appearance General appearance: well-developed, chronically ill EENT: ATNC Neck: no JVD, supple Respiratory: Present: Decreased Breath Sounds Cardiology: tachycardia, S1S2 Gastrointestinal: normoactive bowel sounds Integumentary: warm and dry Neurologic: other (Lethargic) Musculoskeletal: other (No edema. Left AVF has positive bruit and thrill) - Lab 05/13/17 05:30 05/13/17 05:30 Most recent lab results Calcium 9.3 mg/dL (8.4-10.2) 05/13/17 05:30
--- NOTE | 2017-05-13 19:15 | Progress Note ---
Assessment and Plan Assessment and plan: --Sepsis/possible septic shock; on Levophed , titrate systolic blood pressures tomorrow 100, map more than 65 --Acute on chronic respiratory failure; secondary to fluid overload/MRSA pneumonia oxygen titrate O2 sats to more than 90%, HD per schedule, BiPAP/intubate as needed. Pulmonary following --Bilateral pneumonia, positive for MRSA, Started Zyvox, ID following --Hypotension; patient's blood pressures have been in the lower range, closely monitor, Levophed if no improvement --Metabolic encephalopathy at the time of admission; intubated to protect the airway s/p extubation, continue oxygen titrate O2 sats to more than 90% and supportive care --Positive cardiac enzymes; probably nonspecific secondary to end-stage renal disease --Coronary artery disease s/p PCI : Continue current cardiac medications, cardio following --Cardiomyopathy ejection fraction of 40% 04/2016 --End-stage renal disease on hemodialysis, HD per schedule --Hypertension; hold antihypertensives, blood pressure is in the lower range --Dyslipidemia; and new lipid-lowering medications --DVT prophylaxis; heparin renal dose Cardiology, pulmonary, nephrology, ID recommendations noted and appreciated Critical care time 31 minutes The high probability of a clinically significant, sudden or life threatening deterioration of the [cardiovascular, pulmonary, infectious, renal and neuro] system(s) required my full and direct attention, intervention and personal management. The aggregate critical care time was [31] minutes. This time is in addition to time spent performing reported procedures but includes the following : [] Data Review and interpretation [] Patient assessment and monitoring of vital signs [] Documentation [] Medication orders and management History Interval history: Patient seen and examined in ICU ,medical records reviewed Remains hypotensive on Levophed, receiving hemodialysis Chronically and critically ill looking Vital signs reviewed No new events reported by the nursing staff Hospitalist Physical - Constitutional Vitals: Temp Pulse Resp BP Pulse Ox 98.3 F 110 H 43 H 109/62 95 05/13/17 13:31 05/13/17 16:45 05/13/17 16:45 05/13/17 16:45 05/13/17 16:00 General appearance: Present: mild distress, cachectic, other (Lethargic) - EENT Eyes: Present: PERRL, EOM intact - Neck Neck: Present: supple, normal ROM - Respiratory Respiratory effort: normal Respiratory: bilateral: diminished, rales, negative: rhonchi, wheezing - Cardiovascular Rhythm: regular Heart Sounds: Present: S1 & S2 - Extremities Extremities: no ischemia Extremity abnormal: edema - Abdominal General gastrointestinal: soft, non-tender, non-distended, normal bowel sounds - Integumentary Integumentary: Present: clear, warm - Psychiatric Psychiatric: other (minimally communicative) - Neurologic Neurologic: other (minimally communicative) Results - Labs CBC & Chem 7: 05/13/17 05:30 05/13/17 05:30 Labs: Laboratory Last Values WBC 22.0 K/mm3 (4.5-11.0) H 05/13/17 05:30 RBC 3.02 M/mm3 (3.65-5.03) L 05/13/17 05:30 Hgb 9.9 gm/dl (10.1-14.3) L 05/13/17 05:30 Hct 31.5 % (30.3-42.9) 05/13/17 05:30 MCV 105 fl (79-97) H 05/13/17 05:30 MCH 33 pg (28-32) H 05/13/17 05:30 MCHC 31 % (30-34) 05/13/17 05:30 RDW 22.9 % (13.2-15.2) H 05/13/17 05:30 Plt Count 391 K/mm3 (140-440) 05/13/17 05:30 Lymph % (Auto) 4.2 % (13.4-35.0) L 05/11/17 06:09 [place] % (Auto) 12.7 % (0.0-7.3) H 05/11/17 06:09 Eos % (Auto) 0.3 % (0.0-4.3) 05/11/17 06:09 Baso % (Auto) 0.3 % (0.0-1.8) 05/11/17 06:09 Lymph # 0.5 K/mm3 (1.2-5.4) L 05/11/17 06:09 [place] # 1.4 K/mm3 (0.0-0.8) H 05/11/17 06:09 Eos # 0.0 K/mm3 (0.0-0.4) 05/11/17 06:09 Baso # 0.0 K/mm3 (0.0-0.1) 05/11/17 06:09 Add Manual Diff Complete 05/13/17 05:30 Total Counted 100 05/13/17 05:30 Seg Neutrophils % 82.5 % (40.0-70.0) H 05/11/17 06:09 Seg Neuts % (Manual) 89.0 % (40.0-70.0) H 05/13/17 05:30 Band Neutrophils % 0 % 05/13/17 05:30 Lymphocytes % (Manual) 6.0 % (13.4-35.0) L 05/13/17 05:30 Reactive Lymphs % (Man) 0 % 05/13/17 05:30 Monocytes % (Manual) 4.0 % (0.0-7.3) 05/13/17 05:30 Eosinophils % (Manual) 0 % (0.0-4.3) 05/13/17 05:30 Basophils % (Manual) 0 % (0.0-1.8) 05/13/17 05:30 Metamyelocytes % 1.0 % 05/13/17 05:30 Myelocytes % 0 % 05/13/17 05:30 Promyelocytes % 0 % 05/13/17 05:30 Blast Cells % 0 % 05/13/17 05:30 Nucleated RBC % 1.0 % (0.0-0.9) H 05/13/17 05:30 Seg Neutrophils # 9.4 K/mm3 (1.8-7.7) H 05/11/17 06:09 Seg Neutrophils # Man 19.6 K/mm3 (1.8-7.7) H 05/13/17 05:30 Band Neutrophils # 0.0 K/mm3 05/13/17 05:30 Lymphocytes # (Manual) 1.3 K/mm3 (1.2-5.4) 05/13/17 05:30 Abs React Lymphs (Man) 0.0 K/mm3 05/13/17 05:30 Monocytes # (Manual) 0.9 K/mm3 (0.0-0.8) H 05/13/17 05:30 Eosinophils # (Manual) 0.0 K/mm3 (0.0-0.4) 05/13/17 05:30 Basophils # (Manual) 0.0 K/mm3 (0.0-0.1) 05/13/17 05:30 Metamyelocytes # 0.2 K/mm3 05/13/17 05:30 Myelocytes # 0.0 K/mm3 05/13/17 05:30 Promyelocytes # 0.0 K/mm3 05/13/17 05:30 Blast Cells # 0.0 K/mm3 05/13/17 05:30 WBC Morphology Not Reportable 05/13/17 05:30 Hypersegmented Neuts Not Reportable 05/13/17 05:30 Hyposegmented Neuts Not Reportable 05/13/17 05:30 Hypogranular Neuts Not Reportable 05/13/17 05:30 Smudge Cells Not Reportable 05/13/17 05:30 Toxic Granulation Not Reportable 05/13/17 05:30 Toxic Vacuolation Not Reportable 05/13/17 05:30 Dohle Bodies Not Reportable 05/13/17 05:30 Pelger-Huet Anomaly Not Reportable 05/13/17 05:30 Anthony Rods Not Reportable 05/13/17 05:30 Platelet Estimate Appears normal 05/13/17 05:30 Clumped Platelets Not Reportable 05/13/17 05:30 Plt Clumps, EDTA Not Reportable 05/13/17 05:30 Large Platelets Not Reportable 05/13/17 05:30 Giant Platelets Not Reportable 05/13/17 05:30 Platelet Satelliting Not Reportable 05/13/17 05:30 Plt Morphology Comment Not Reportable 05/13/17 05:30 RBC Morphology Not Reportable 05/13/17 05:30 Dimorphic RBCs Not Reportable 05/13/17 05:30 Polychromasia 1+ 05/13/17 05:30 Hypochromasia Not Reportable 05/13/17 05:30 Poikilocytosis 1+ 05/13/17 05:30 Anisocytosis 1+ 05/13/17 05:30 Microcytosis Not Reportable 05/13/17 05:30 Macrocytosis Not Reportable 05/13/17 05:30 Spherocytes Not Reportable 05/13/17 05:30 Pappenheimer Bodies Not Reportable 05/13/17 05:30 Sickle Cells Not Reportable 05/13/17 05:30 Target Cells Few 05/13/17 05:30 Tear Drop Cells 1+ 05/13/17 05:30 Ovalocytes 1+ 05/13/17 05:30 Helmet Cells Not Reportable 05/13/17 05:30 [place] Bodies Not Reportable 05/13/17 05:30 [place] Rings Not Reportable 05/13/17 05:30 Anthony Cells Not Reportable 05/13/17 05:30 Bite Cells Not Reportable 05/13/17 05:30 Crenated Cell Not Reportable 05/13/17 05:30 Elliptocytes Few 05/13/17 05:30 Acanthocytes (Spur) Not Reportable 05/13/17 05:30 Rouleaux Not Reportable 05/13/17 05:30 Hemoglobin C Crystals Not Reportable 05/13/17 05:30 Schistocytes Not Reportable 05/13/17 05:30 Malaria parasites Not Reportable 05/13/17 05:30 Jose Bodies Not Reportable 05/13/17 05:30 Hem Pathologist Commnt No 05/13/17 05:30 PT 15.2 Sec. (12.2-14.9) H 05/08/17 21:25 INR 1.14 (0.87-1.13) H 05/08/17 21:25 POC ABG pH 7.450 (7.35-7.45) 05/12/17 13:10 POC ABG pCO2 36.7 (35-45) 05/12/17 13:10 POC ABG pO2 66 (80-105) L 05/12/17 13:10 POC ABG HCO3 25.5 05/12/17 13:10 POC ABG Total CO2 27 05/12/17 13:10 POC ABG O2 Sat 94 05/12/17 13:10 POC ABG Base Excess 2 05/12/17 13:10 FiO2 25 % 05/12/17 13:10 Sodium 139 mmol/L (137-145) 05/13/17 05:30 Potassium 4.0 mmol/L (3.6-5.0) 05/13/17 05:30 Chloride 90.8 mmol/L (98-107) L 05/13/17 05:30 Carbon Dioxide 21 mmol/L (22-30) L 05/13/17 05:30 Anion Gap 31 mmol/L 05/13/17 05:30 BUN 28 mg/dL (7-17) H 05/13/17 05:30 Creatinine 3.1 mg/dL (0.7-1.2) H 05/13/17 05:30 Estimated GFR 16 ml/min 05/13/17 05:30 BUN/Creatinine Ratio 9 % 05/13/17 05:30 Glucose 172 mg/dL (65-100) H 05/13/17 05:30 POC Glucose 185 (70-105) H 05/13/17 11:52 Lactic Acid 2.60 mmol/L (0.7-2.0) H* 05/12/17 16:05 Calcium 9.3 mg/dL (8.4-10.2) 05/13/17 05:30 Total Bilirubin 0.60 mg/dL (0.1-1.2) 05/08/17 22:42 AST 22 units/L (5-40) 05/08/17 22:42 ALT 18 units/L (7-56) 05/08/17 22:42 Alkaline Phosphatase 258 units/L (35-129) H 05/08/17 22:42 Total Creatine Kinase 24 units/L (30-135) L 05/09/17 14:00 CK-MB (CK-2) 2.2 ng/mL (0.0-4.0) 05/09/17 14:00 CK-MB (CK-2) Rel Index 9.1 (0-4) H 05/09/17 14:00 Troponin T 0.654 ng/mL (0.00-0.029) H* 05/09/17 14:00 C-Reactive Protein 44.70 mg/dL (0.00-1.30) H 05/11/17 15:30 Total Protein 5.2 g/dL (6.3-8.2) L 05/08/17 22:42 Albumin 2.9 g/dL (3.9-5) L 05/08/17 22:42 Albumin/Globulin Ratio 1.3 % 05/08/17 22:42 Triglycerides 125 mg/dL (2-149) 05/09/17 06:00 Cholesterol 73 mg/dL (50-199) 05/09/17 06:00 LDL Cholesterol Direct 21 mg/dL (50-130) L 05/09/17 06:00 HDL Cholesterol 27 mg/dL (40-59) L 05/09/17 06:00 Cholesterol/HDL Ratio 2.70 % 05/09/17 06:00 Urine Color Yellow (Yellow) 05/08/17 Unknown Urine Turbidity Clear (Clear) 05/08/17 Unknown Urine pH 7.0 (5.0-7.0) 05/08/17 Unknown Ur Specific [place] 1.014 (1.003-1.030) 05/08/17 Unknown Urine Protein 100 mg/dl mg/dL (Negative) 05/08/17 Unknown Urine Glucose (UA) 150 mg/dL (Negative) 05/08/17 Unknown Urine Ketones Neg mg/dL (Negative) 05/08/17 Unknown Urine Blood Sm (Negative) 05/08/17 Unknown Urine Nitrite Neg (Negative) 05/08/17 Unknown Urine Bilirubin Neg (Negative) 05/08/17 Unknown Urine Urobilinogen < 2.0 mg/dL (<2.0) 05/08/17 Unknown Ur Leukocyte Esterase Tr (Negative) 05/08/17 Unknown Urine WBC (Auto) 16.0 /HPF (0.0-6.0) H 05/08/17 Unknown Urine RBC (Auto) 3.0 /HPF (0.0-6.0) 05/08/17 Unknown U Epithel Cells (Auto) < 1.0 /HPF (0-13.0) 05/08/17 Unknown Urine Bacteria (Auto) 1+ /HPF (Negative) 05/08/17 Unknown Salicylates < 0.3 mg/dL (2.8-20.0) L 05/08/17 21:35 Acetaminophen < 15.0 ug/mL (10.0-30.0) 05/08/17 21:35 Hepatitis A IgM Ab Non-reactive (NonReactive) 05/09/17 17:00 Hep Bs Antigen Non-reactive (Negative) 05/09/17 17:00 Hep B Core IgM Ab Non-reactive (NonReactive) 05/09/17 17:00 Hepatitis C Antibody Reactive (NonReactive) A 05/09/17 17:00
[2017-05-14] MEDS: ZYVOX 600MG/300ML 600 MG/300 ML BAG IV SCH ×2 (02:36→17:46)
[2017-05-14] MEDS: NEURONTIN PO SCH ×3 (06:00→22:13)
[2017-05-14 06:23] LABS: Basophils # (Auto) 0.2 K/mm3 (0.0-0.1); Basophils % (Auto) 0.8 % (0.0-1.8); Eosinophils # (Auto) 0.3 K/mm3 (0.0-0.4); Eosinophils % (Auto) 1.4 % (0.0-4.3); Hematocrit 37.6 % (30.3-42.9); Hemoglobin 12.3 gm/dl (10.1-14.3); Lymphocytes # (Auto) 1.7 K/mm3 (1.2-5.4); Lymphocytes % (Auto) 8.6 % (13.4-35.0); Mean Corpuscular HGB Conc 33 % (30-34); Mean Corpuscular Hemoglobin 34 pg (28-32); Mean Corpuscular Volume 104 fl (79-97); Monocytes # (Auto) 1.3 K/mm3 (0.0-0.8); Monocytes % (Auto) 6.7 % (0.0-7.3); Platelet Count 397 K/mm3 (140-440); Red Blood Count 3.61 M/mm3 (3.65-5.03)
[2017-05-14 06:27] LABS: Red Cell Distribution Width 23.4 % (13.2-15.2)
[2017-05-14 06:50] LABS: Albumin 4.3 g/dL (3.9-5); Calcium 9.8 mg/dL (8.4-10.2)
--- NOTE | 2017-05-14 09:33 | Progress Note ---
Assessment and Plan Assessment: Acute on chronic systolic heart failure [facility] - echo 04/17/2017 showed EF 40% Elevated troponins - ECG with NAF; pt with no c/o chest pain; currently nonspecific in setting of acutely decompensated HF, sepsis, and ESRD Acute respiratory failure - s/p extubation AMS - head CT with NAF MRSA pneumonia/atelectasis / sepsis ESRD on HD - TTS HD schedule CAD, AL with PCI of mid LAD and mid circ at [facility] (01/20/2016), NSTEMI with subacute left circ and LAD stent thrombosis s/p stent of left circ and balloon angioplasty alone of LAD (02/22/2016) DM H/o HTN - with hypotension since admission HLP Anemia Hepatitis C Moderate to severe TR Pulmonary HTN - RVSP 57.9mmHg Plan: Volume optimization per nephrology. Wean pressors as tolerated. No indication for repeat echo given recent echo 04/17/2017. No BB, ACEI/ARB, and/or anti-hypertensives at this time given persistent hypotension since admission. The patient has been seen in conjunction with Dr. Menon who agrees with the assessment and plan of care. Subjective Date of service: 05/14/17 Principal diagnosis: MRSA pneumonia, shock,sepsis,ESRD Interval history: pt resting in bed, appears more alert today, oriented. no current complaints. Mild ST on telemetry, BPs stable, on levophed gtt. Objective Last Vital Signs Temp 98.8 F 05/14/17 03:40 Pulse 113 H 05/14/17 08:45 Resp 22 05/14/17 08:45 BP 112/67 05/14/17 08:45 Pulse Ox 96 05/14/17 08:45 - Physical Examination General: No Apparent Distress HEENT: Positive: PERRL, Normocephaly, Mucus Membranes Moist Neck: Positive: neck supple, trachea midline Cardiac: Positive: Regular Rhythm, S1/S2, Tachycardia Lungs: Positive: Decreased Breath Sounds Neuro: Positive: Grossly Intact Abdomen: Positive: Soft. Negative: Tender Skin: Positive: Clear. Negative: Rash, Wound Musculoskeletal: No Fluid Collection, No Pain, Normal Range of Motion Extremities: Absent: edema - Labs and Meds Cardiac Enzymes 05/14/17 Range/Units 06:10 AST 85 H (5-40) units/L CBC 05/14/17 Range/Units 06:10 WBC 19.6 H (4.5-11.0) K/mm3 RBC 3.61 L (3.65-5.03) M/mm3 Hgb 12.3 (10.1-14.3) gm/dl Hct 37.6 D (30.3-42.9) % Plt Count 397 (140-440) K/mm3 Lymph # 1.7 (1.2-5.4) K/mm3 [place] # 1.3 H (0.0-0.8) K/mm3 Eos # 0.3 (0.0-0.4) K/mm3 Baso # 0.2 H (0.0-0.1) K/mm3 Comprehensive Metabolic Panel 05/14/17 Range/Units 06:10 Sodium 138 (137-145) mmol/L Potassium 3.4 L (3.6-5.0) mmol/L Chloride 89.1 L (98-107) mmol/L Carbon Dioxide 26 (22-30) mmol/L BUN 32 H (7-17) mg/dL Creatinine 3.0 H (0.7-1.2) mg/dL Glucose 224 H (65-100) mg/dL Calcium 9.8 (8.4-10.2) mg/dL AST 85 H (5-40) units/L ALT 162 H (7-56) units/L Alkaline Phosphatase 347 H (35-129) units/L Total Protein 8.5 H (6.3-8.2) g/dL Albumin 4.3 (3.9-5) g/dL - Imaging and Cardiology EKG: report reviewed, image reviewed Cardiac cath: report reviewed (AL and PCI of mid LAD and mid circ on 01/20/2016; subacute left circ and LAD stent thrombosis s/p stent of left circ and balloon angioplasty alone of LAD (02/22/2016)) - Telemetry EKG Rhythm: Sinus Tachycardia - EKG Sinus rhythms and dysrhythmias: sinus rhythm AV and intraventricular conduction: right bundle branch block (incomplete)
[2017-05-14] MEDS ORDERED: NACL 0.9% 100 ML IV PRN (10:17)
--- NOTE | 2017-05-14 10:56 | Progress Note ---
Assessment and Plan Acute respiratory failure. On Ventimask, controlled Sepsis. with hypotension,shock. Been weaned off norepinephrine CHF with decompensation. Improved clinically on HD Pneumonia, MRSA positive. On Zyvox ESRD decompensation Rec Continue Ventimask support Wean norepinephrine in as tolerated nebs q 4-6 hr Chest PT for chest secretions Monitor WBC response Discussed with staff in detail. Orders reviewed. Critical care time was 31 minutes of [id number] evaluation and coordination of care. Subjective Date of service: 05/14/17 Principal diagnosis: MRSA pneumonia, shock,sepsis,ESRD Interval history: States her cough is better. Some expectoration.No fever. Undergoing HD Objective Vital Signs - 12hr 05/13/17 05/13/17 05/13/17 23:01 23:05 23:15 Temperature Pulse Rate 115 H 114 H 115 H Pulse Rate [ Apical] Pulse Rate [ Left Dorsalis Pedis] Pulse Rate [ Left Posterior Tibial] Pulse Rate [ Left Radial] Pulse Rate [ Right Dorsalis Pedis] Pulse Rate [ Right Posterior Tibial] Pulse Rate [ Right Radial] Respiratory 16 19 24 Rate Blood Pressure 94/60 94/60 94/60 O2 Sat by Pulse 97 96 Oximetry O2 Sat by Pulse Oximetry [ Anterior Bilateral Throughout] 05/13/17 05/13/17 05/13/17 23:25 23:31 23:45 Temperature Pulse Rate 115 H 115 H 114 H Pulse Rate [ Apical] Pulse Rate [ Left Dorsalis Pedis] Pulse Rate [ Left Posterior Tibial] Pulse Rate [ Left Radial] Pulse Rate [ Right Dorsalis Pedis] Pulse Rate [ Right Posterior Tibial] Pulse Rate [ Right Radial] Respiratory 21 27 H 25 H Rate Blood Pressure 94/60 94/60 94/60 O2 Sat by Pulse 97 96 93 Oximetry O2 Sat by Pulse Oximetry [ Anterior Bilateral Throughout] 05/13/17 05/14/17 05/14/17 23:49 00:00 00:15 Temperature 98.7 F Pulse Rate 109 H 115 H Pulse Rate [ 113 H Apical] Pulse Rate [ 113 H Left Dorsalis Pedis] Pulse Rate [ 113 H Left Posterior Tibial] Pulse Rate [ 113 H Left Radial] Pulse Rate [ 113 H Right Dorsalis Pedis] Pulse Rate [ 113 H Right Posterior Tibial] Pulse Rate [ 113 H Right Radial] Respiratory 31 H 20 Rate Blood Pressure 101/65 101/65 O2 Sat by Pulse 96 96 Oximetry O2 Sat by Pulse Oximetry [ Anterior Bilateral Throughout] 05/14/17 05/14/17 05/14/17 00:31 00:45 01:00 Temperature Pulse Rate 114 H 115 H 113 H Pulse Rate [ Apical] Pulse Rate [ Left Dorsalis Pedis] Pulse Rate [ Left Posterior Tibial] Pulse Rate [ Left Radial] Pulse Rate [ Right Dorsalis Pedis] Pulse Rate [ Right Posterior Tibial] Pulse Rate [ Right Radial] Respiratory 22 22 18 Rate Blood Pressure 94/60 94/60 106/65 O2 Sat by Pulse 96 98 Oximetry O2 Sat by Pulse Oximetry [ Anterior Bilateral Throughout] 05/14/17 05/14/17 05/14/17 01:15 01:31 01:45 Temperature Pulse Rate 98 H 100 H 98 H Pulse Rate [ Apical] Pulse Rate [ Left Dorsalis Pedis] Pulse Rate [ Left Posterior Tibial] Pulse Rate [ Left Radial] Pulse Rate [ Right Dorsalis Pedis] Pulse Rate [ Right Posterior Tibial] Pulse Rate [ Right Radial] Respiratory 15 26 H 24 Rate Blood Pressure 106/65 106/65 106/65 O2 Sat by Pulse 96 95 96 Oximetry O2 Sat by Pulse Oximetry [ Anterior Bilateral Throughout] 05/14/17 05/14/17 05/14/17 02:00 02:15 02:31 Temperature Pulse Rate 97 H 99 H 114 H Pulse Rate [ Apical] Pulse Rate [ Left Dorsalis Pedis] Pulse Rate [ Left Posterior Tibial] Pulse Rate [ Left Radial] Pulse Rate [ Right Dorsalis Pedis] Pulse Rate [ Right Posterior Tibial] Pulse Rate [ Right Radial] Respiratory 23 18 31 H Rate Blood Pressure 97/58 97/58 O2 Sat by Pulse 93 95 97 Oximetry O2 Sat by Pulse Oximetry [ Anterior Bilateral Throughout] 05/14/17 05/14/17 05/14/17 02:45 03:00 03:15 Temperature Pulse Rate 114 H 114 H 113 H Pulse Rate [ Apical] Pulse Rate [ Left Dorsalis Pedis] Pulse Rate [ Left Posterior Tibial] Pulse Rate [ Left Radial] Pulse Rate [ Right Dorsalis Pedis] Pulse Rate [ Right Posterior Tibial] Pulse Rate [ Right Radial] Respiratory 24 19 25 H Rate Blood Pressure 97/58 106/65 106/65 O2 Sat by Pulse 97 98 97 Oximetry O2 Sat by Pulse Oximetry [ Anterior Bilateral Throughout] 05/14/17 05/14/17 05/14/17 03:31 03:40 03:45 Temperature 98.8 F Pulse Rate 112 H 112 H Pulse Rate [ 111 H Apical] Pulse Rate [ 111 H Left Dorsalis Pedis] Pulse Rate [ 111 H Left Posterior Tibial] Pulse Rate [ 111 H Left Radial] Pulse Rate [ 111 H Right Dorsalis Pedis] Pulse Rate [ 111 H Right Posterior Tibial] Pulse Rate [ Right Radial] Respiratory 26 H 20 Rate Blood Pressure 106/65 106/65 O2 Sat by Pulse 97 97 Oximetry O2 Sat by Pulse Oximetry [ Anterior Bilateral Throughout] 05/14/17 05/14/17 05/14/17 04:01 04:15 04:31 Temperature Pulse Rate 106 H 96 H 95 H Pulse Rate [ Apical] Pulse Rate [ Left Dorsalis Pedis] Pulse Rate [ Left Posterior Tibial] Pulse Rate [ Left Radial] Pulse Rate [ Right Dorsalis Pedis] Pulse Rate [ Right Posterior Tibial] Pulse Rate [ Right Radial] Respiratory 14 25 H 22 Rate Blood Pressure 103/58 103/58 103/58 O2 Sat by Pulse 85 96 96 Oximetry O2 Sat by Pulse Oximetry [ Anterior Bilateral Throughout] 05/14/17 05/14/17 05/14/17 04:45 05:00 05:15 Temperature Pulse Rate 97 H 106 H 106 H Pulse Rate [ Apical] Pulse Rate [ Left Dorsalis Pedis] Pulse Rate [ Left Posterior Tibial] Pulse Rate [ Left Radial] Pulse Rate [ Right Dorsalis Pedis] Pulse Rate [ Right Posterior Tibial] Pulse Rate [ Right Radial] Respiratory 18 25 H 23 Rate Blood Pressure 103/58 87/48 87/48 O2 Sat by Pulse 94 96 97 Oximetry O2 Sat by Pulse Oximetry [ Anterior Bilateral Throughout] 05/14/17 05/14/17 05/14/17 05:31 05:45 06:00 Temperature Pulse Rate 106 H 104 H 104 H Pulse Rate [ Apical] Pulse Rate [ Left Dorsalis Pedis] Pulse Rate [ Left Posterior Tibial] Pulse Rate [ Left Radial] Pulse Rate [ Right Dorsalis Pedis] Pulse Rate [ Right Posterior Tibial] Pulse Rate [ Right Radial] Respiratory 26 H 29 H 28 H Rate Blood Pressure 103/58 103/58 89/51 O2 Sat by Pulse 98 97 Oximetry O2 Sat by Pulse Oximetry [ Anterior Bilateral Throughout] 05/14/17 05/14/17 05/14/17 06:15 06:30 06:45 Temperature Pulse Rate 94 H 99 H 99 H Pulse Rate [ Apical] Pulse Rate [ Left Dorsalis Pedis] Pulse Rate [ Left Posterior Tibial] Pulse Rate [ Left Radial] Pulse Rate [ Right Dorsalis Pedis] Pulse Rate [ Right Posterior Tibial] Pulse Rate [ Right Radial] Respiratory 25 H 30 H 24 Rate Blood Pressure 106/63 112/59 103/67 O2 Sat by Pulse 95 97 97 Oximetry O2 Sat by Pulse Oximetry [ Anterior Bilateral Throughout] 05/14/17 05/14/17 05/14/17 07:00 07:15 07:30 Temperature Pulse Rate 98 H 97 H 96 H Pulse Rate [ Apical] Pulse Rate [ Left Dorsalis Pedis] Pulse Rate [ Left Posterior Tibial] Pulse Rate [ Left Radial] Pulse Rate [ Right Dorsalis Pedis] Pulse Rate [ Right Posterior Tibial] Pulse Rate [ Right Radial] Respiratory 24 18 22 Rate Blood Pressure 121/70 116/68 111/67 O2 Sat by Pulse 96 Oximetry O2 Sat by Pulse Oximetry [ Anterior Bilateral Throughout] 05/14/17 05/14/17 05/14/17 07:45 08:00 08:15 Temperature 98.5 F Pulse Rate 96 H 94 H 97 H Pulse Rate [ Apical] Pulse Rate [ Left Dorsalis Pedis] Pulse Rate [ Left Posterior Tibial] Pulse Rate [ Left Radial] Pulse Rate [ Right Dorsalis Pedis] Pulse Rate [ Right Posterior Tibial] Pulse Rate [ Right Radial] Respiratory 29 H 27 H 19 Rate Blood Pressure 107/65 99/62 103/68 O2 Sat by Pulse 96 96 Oximetry O2 Sat by Pulse Oximetry [ Anterior Bilateral Throughout] 05/14/17 05/14/17 05/14/17 08:31 08:45 09:30 Temperature 98.8 F Pulse Rate 107 H 113 H 98 H Pulse Rate [ Apical] Pulse Rate [ Left Dorsalis Pedis] Pulse Rate [ Left Posterior Tibial] Pulse Rate [ Left Radial] Pulse Rate [ Right Dorsalis Pedis] Pulse Rate [ Right Posterior Tibial] Pulse Rate [ Right Radial] Respiratory 20 22 24 Rate Blood Pressure 105/59 112/67 110/67 O2 Sat by Pulse 94 96 Oximetry O2 Sat by Pulse 98 Oximetry [ Anterior Bilateral Throughout] 05/14/17 05/14/17 05/14/17 09:45 10:00 10:15 Temperature Pulse Rate 99 H 99 H 101 H Pulse Rate [ Apical] Pulse Rate [ Left Dorsalis Pedis] Pulse Rate [ Left Posterior Tibial] Pulse Rate [ Left Radial] Pulse Rate [ Right Dorsalis Pedis] Pulse Rate [ Right Posterior Tibial] Pulse Rate [ Right Radial] Respiratory Rate Blood Pressure 111/68 90/59 91/50 O2 Sat by Pulse Oximetry O2 Sat by Pulse Oximetry [ Anterior Bilateral Throughout] 05/14/17 10:30 Temperature Pulse Rate 99 H Pulse Rate [ Apical] Pulse Rate [ Left Dorsalis Pedis] Pulse Rate [ Left Posterior Tibial] Pulse Rate [ Left Radial] Pulse Rate [ Right Dorsalis Pedis] Pulse Rate [ Right Posterior Tibial] Pulse Rate [ Right Radial] Respiratory Rate Blood Pressure 85/53 O2 Sat by Pulse Oximetry O2 Sat by Pulse Oximetry [ Anterior Bilateral Throughout] Constitutional: no acute distress, alert ENT: oropharynx moist Neck: supple, no JVD, other (IJ lines in place) Effort: normal Ascultation: Bilateral: clear (sporadic rhonchi), diminished breath sounds Percussion: Bilateral: not dull Cardiovascular: regular rate and rhythm Gastrointestinal: normoactive bowel sounds, soft, non-tender Extremities: no cyanosis, no edema Neurologic: normal mental status, non-focal exam, pupils equal and round, CN II- XII normal, motor strength normal and CBC and BMP: 05/14/17 06:10 05/14/17 06:10 ABG, PT/INR, D-dimer: ABG POC ABG pH 7.450 (7.35-7.45) 05/12/17 13:10 POC ABG pCO2 36.7 (35-45) 05/12/17 13:10 POC ABG pO2 66 (80-105) L 05/12/17 13:10 POC ABG HCO3 25.5 05/12/17 13:10 POC ABG Total CO2 27 05/12/17 13:10 POC ABG O2 Sat 94 05/12/17 13:10 PT/INR, D-dimer PT 15.2 Sec. (12.2-14.9) H 05/08/17 21:25 INR 1.14 (0.87-1.13) H 05/08/17 21:25 Abnormal lab findings: Abnormal Labs 05/08/17 05/08/17 05/08/17 21:25 21:25 21:25 WBC RBC 2.55 L Hgb 8.9 L Hct 28.1 L MCV 111 H MCH 35 H RDW 25.4 H Lymph % (Auto) [place] % (Auto) Lymph # [place] # Baso # Seg Neutrophils % Seg Neuts % (Manual) 92.0 H Lymphocytes % (Manual) 6.0 L Nucleated RBC % Seg Neutrophils # Seg Neutrophils # Man 9.3 H Lymphocytes # (Manual) 0.6 L Monocytes # (Manual) PT 15.2 H INR 1.14 H POC ABG pH POC ABG pCO2 POC ABG pO2 Potassium Chloride Carbon Dioxide BUN Creatinine Glucose POC Glucose Lactic Acid 2.50 H* Calcium AST ALT Alkaline Phosphatase Total Creatine Kinase CK-MB (CK-2) Rel Index Troponin T C-Reactive Protein Total Protein Albumin LDL Cholesterol Direct HDL Cholesterol Urine WBC (Auto) Salicylates Hepatitis C Antibody 05/08/17 05/08/17 05/08/17 21:35 22:04 22:42 WBC RBC Hgb Hct MCV MCH RDW Lymph % (Auto) [place] % (Auto) Lymph # [place] # Baso # Seg Neutrophils % Seg Neuts % (Manual) Lymphocytes % (Manual) Nucleated RBC % Seg Neutrophils # Seg Neutrophils # Man Lymphocytes # (Manual) Monocytes # (Manual) PT INR POC ABG pH 7.271 L POC ABG pCO2 56.5 H POC ABG pO2 30 L Potassium Chloride 107.8 H Carbon Dioxide BUN 22 H Creatinine 2.6 H Glucose 202 H POC Glucose Lactic Acid Calcium 7.3 L AST ALT Alkaline Phosphatase 258 H Total Creatine Kinase CK-MB (CK-2) Rel Index Troponin T C-Reactive Protein Total Protein 5.2 L Albumin 2.9 L LDL Cholesterol Direct HDL Cholesterol Urine WBC (Auto) Salicylates < 0.3 L Hepatitis C Antibody 05/08/17 05/09/17 05/09/17 Unknown 00:24 06:00 WBC RBC Hgb Hct MCV MCH RDW Lymph % (Auto) [place] % (Auto) Lymph # [place] # Baso # Seg Neutrophils % Seg Neuts % (Manual) Lymphocytes % (Manual) Nucleated RBC % Seg Neutrophils # Seg Neutrophils # Man Lymphocytes # (Manual) Monocytes # (Manual) PT INR POC ABG pH 7.283 L POC ABG pCO2 49.9 H POC ABG pO2 249 H Potassium Chloride Carbon Dioxide BUN Creatinine Glucose POC Glucose Lactic Acid Calcium AST ALT Alkaline Phosphatase Total Creatine Kinase 19 L CK-MB (CK-2) Rel Index 11.0 H Troponin T 0.612 H* C-Reactive Protein Total Protein Albumin LDL Cholesterol Direct 21 L HDL Cholesterol 27 L Urine WBC (Auto) 16.0 H Salicylates Hepatitis C Antibody 05/09/17 05/09/17 05/09/17 06:00 06:00 08:52 WBC 11.7 H RBC 2.67 L Hgb 9.3 L Hct 30.0 L MCV 112 H MCH 35 H RDW 24.4 H Lymph % (Auto) [place] % (Auto) Lymph # [place] # Baso # Seg Neutrophils % Seg Neuts % (Manual) Lymphocytes % (Manual) Nucleated RBC % Seg Neutrophils # Seg Neutrophils # Man Lymphocytes # (Manual) Monocytes # (Manual) PT INR POC ABG pH 7.323 L POC ABG pCO2 POC ABG pO2 143 H Potassium Chloride Carbon Dioxide BUN 24 H Creatinine 2.9 H Glucose 172 H POC Glucose Lactic Acid Calcium 7.7 L AST ALT Alkaline Phosphatase Total Creatine Kinase CK-MB (CK-2) Rel Index Troponin T C-Reactive Protein Total Protein Albumin LDL Cholesterol Direct HDL Cholesterol Urine WBC (Auto) Salicylates Hepatitis C Antibody 05/09/17 05/09/17 05/11/17 14:00 17:00 06:09 WBC 11.4 H RBC 2.66 L Hgb 9.1 L Hct 29.3 L MCV 110 H MCH 34 H RDW 23.1 H Lymph % (Auto) 4.2 L [place] % (Auto) 12.7 H Lymph # 0.5 L [place] # 1.4 H Baso # Seg Neutrophils % 82.5 H Seg Neuts % (Manual) Lymphocytes % (Manual) Nucleated RBC % Seg Neutrophils # 9.4 H Seg Neutrophils # Man Lymphocytes # (Manual) Monocytes # (Manual) PT INR POC ABG pH POC ABG pCO2 POC ABG pO2 Potassium Chloride Carbon Dioxide BUN Creatinine Glucose POC Glucose Lactic Acid Calcium AST ALT Alkaline Phosphatase Total Creatine Kinase 24 L CK-MB (CK-2) Rel Index 9.1 H Troponin T 0.654 H* C-Reactive Protein Total Protein Albumin LDL Cholesterol Direct HDL Cholesterol Urine WBC (Auto) Salicylates Hepatitis C Antibody Reactive A 05/11/17 05/11/17 05/11/17 06:09 08:20 11:34 WBC RBC Hgb Hct MCV MCH RDW Lymph % (Auto) [place] % (Auto) Lymph # [place] # Baso # Seg Neutrophils % Seg Neuts % (Manual) Lymphocytes % (Manual) Nucleated RBC % Seg Neutrophils # Seg Neutrophils # Man Lymphocytes # (Manual) Monocytes # (Manual) PT INR POC ABG pH POC ABG pCO2 POC ABG pO2 Potassium Chloride 95.6 L Carbon Dioxide 20 L BUN 24 H Creatinine 3.4 H Glucose 134 H POC Glucose 154 H 149 H Lactic Acid Calcium AST ALT Alkaline Phosphatase Total Creatine Kinase CK-MB (CK-2) Rel Index Troponin T C-Reactive Protein Total Protein Albumin LDL Cholesterol Direct HDL Cholesterol Urine WBC (Auto) Salicylates Hepatitis C Antibody 05/11/17 05/11/17 05/11/17 15:30 16:27 21:58 WBC RBC Hgb Hct MCV MCH RDW Lymph % (Auto) [place] % (Auto) Lymph # [place] # Baso # Seg Neutrophils % Seg Neuts % (Manual) Lymphocytes % (Manual) Nucleated RBC % Seg Neutrophils # Seg Neutrophils # Man Lymphocytes # (Manual) Monocytes # (Manual) PT INR POC ABG pH POC ABG pCO2 POC ABG pO2 Potassium Chloride Carbon Dioxide BUN Creatinine Glucose POC Glucose 163 H 199 H Lactic Acid Calcium AST ALT Alkaline Phosphatase Total Creatine Kinase CK-MB (CK-2) Rel Index Troponin T C-Reactive Protein 44.70 H Total Protein Albumin LDL Cholesterol Direct HDL Cholesterol Urine WBC (Auto) Salicylates Hepatitis C Antibody 05/12/17 05/12/17 05/12/17 08:42 13:10 14:10 WBC RBC Hgb Hct MCV MCH RDW Lymph % (Auto) [place] % (Auto) Lymph # [place] # Baso # Seg Neutrophils % Seg Neuts % (Manual) Lymphocytes % (Manual) Nucleated RBC % Seg Neutrophils # Seg Neutrophils # Man Lymphocytes # (Manual) Monocytes # (Manual) PT INR POC ABG pH POC ABG pCO2 POC ABG pO2 66 L Potassium Chloride Carbon Dioxide BUN Creatinine Glucose POC Glucose 190 H 162 H Lactic Acid Calcium AST ALT Alkaline Phosphatase Total Creatine Kinase CK-MB (CK-2) Rel Index Troponin T C-Reactive Protein Total Protein Albumin LDL Cholesterol Direct HDL Cholesterol Urine WBC (Auto) Salicylates Hepatitis C Antibody 05/12/17 05/12/17 05/12/17 15:46 16:05 21:42 WBC RBC Hgb Hct MCV MCH RDW Lymph % (Auto) [place] % (Auto) Lymph # [place] # Baso # Seg Neutrophils % Seg Neuts % (Manual) Lymphocytes % (Manual) Nucleated RBC % Seg Neutrophils # Seg Neutrophils # Man Lymphocytes # (Manual) Monocytes # (Manual) PT INR POC ABG pH POC ABG pCO2 POC ABG pO2 Potassium Chloride Carbon Dioxide BUN Creatinine Glucose POC Glucose 153 H 153 H Lactic Acid 2.60 H* Calcium AST ALT Alkaline Phosphatase Total Creatine Kinase CK-MB (CK-2) Rel Index Troponin T C-Reactive Protein Total Protein Albumin LDL Cholesterol Direct HDL Cholesterol Urine WBC (Auto) Salicylates Hepatitis C Antibody 05/13/17 05/13/17 05/13/17 05:12 05:30 05:30 WBC 22.0 H RBC 3.02 L Hgb 9.9 L Hct MCV 105 H MCH 33 H RDW 22.9 H Lymph % (Auto) [place] % (Auto) Lymph # [place] # Baso # Seg Neutrophils % Seg Neuts % (Manual) 89.0 H Lymphocytes % (Manual) 6.0 L Nucleated RBC % 1.0 H Seg Neutrophils # Seg Neutrophils # Man 19.6 H Lymphocytes # (Manual) Monocytes # (Manual) 0.9 H PT INR POC ABG pH POC ABG pCO2 POC ABG pO2 Potassium Chloride 90.8 L Carbon Dioxide 21 L BUN 28 H Creatinine 3.1 H Glucose 172 H POC Glucose 182 H Lactic Acid Calcium AST ALT Alkaline Phosphatase Total Creatine Kinase CK-MB (CK-2) Rel Index Troponin T C-Reactive Protein Total Protein Albumin LDL Cholesterol Direct HDL Cholesterol Urine WBC (Auto) Salicylates Hepatitis C Antibody 05/13/17 05/13/17 05/14/17 11:52 23:31 05:43 WBC RBC Hgb Hct MCV MCH RDW Lymph % (Auto) [place] % (Auto) Lymph # [place] # Baso # Seg Neutrophils % Seg Neuts % (Manual) Lymphocytes % (Manual) Nucleated RBC % Seg Neutrophils # Seg Neutrophils # Man Lymphocytes # (Manual) Monocytes # (Manual) PT INR POC ABG pH POC ABG pCO2 POC ABG pO2 Potassium Chloride Carbon Dioxide BUN Creatinine Glucose POC Glucose 185 H 281 H 215 H Lactic Acid Calcium AST ALT Alkaline Phosphatase Total Creatine Kinase CK-MB (CK-2) Rel Index Troponin T C-Reactive Protein Total Protein Albumin LDL Cholesterol Direct HDL Cholesterol Urine WBC (Auto) Salicylates Hepatitis C Antibody 05/14/17 05/14/17 05/14/17 06:10 06:10 08:32 WBC 19.6 H RBC 3.61 L Hgb Hct MCV 104 H MCH 34 H RDW 23.4 H Lymph % (Auto) 8.6 L [place] % (Auto) Lymph # [place] # 1.3 H Baso # 0.2 H Seg Neutrophils % 82.5 H Seg Neuts % (Manual) Lymphocytes % (Manual) Nucleated RBC % Seg Neutrophils # 16.2 H Seg Neutrophils # Man Lymphocytes # (Manual) Monocytes # (Manual) PT INR POC ABG pH POC ABG pCO2 POC ABG pO2 Potassium 3.4 L Chloride 89.1 L Carbon Dioxide BUN 32 H Creatinine 3.0 H Glucose 224 H POC Glucose 204 H Lactic Acid Calcium AST 85 H ALT 162 H Alkaline Phosphatase 347 H Total Creatine Kinase CK-MB (CK-2) Rel Index Troponin T C-Reactive Protein Total Protein 8.5 H Albumin LDL Cholesterol Direct HDL Cholesterol Urine WBC (Auto) Salicylates Hepatitis C Antibody
--- NOTE | 2017-05-14 10:56 | Progress Note ---
Assessment and Plan Assessment: 1) Sepsis with septic shock: still pressors, leukocytosis improving. Etiology most likely pneumonia. 2) Bilateral pneumonia: -tracheal asp + MRSA -CRP very high at 44 3) Resp failure - better 4) HBV / Ascitis 5) ESRD on HD 6) CAD 7) CHF with exacerbation 8) LALO - worsening on HD now 9) Recurrent falls Plan: -taper down levophed to keep MAP at 65, currenlty MAP 90 and she is on 8 mcg/ min -continue zyvox day 4 of 7 -repeat CRP -contact isolation -evaluation and precautions for recurrent falls. Thank you Dr Gutierrez for your consultation, will follow up with you. Tamera Butler MD Infectious Diseases Specialist [facility] ([facility] M [phone] O [phone] Subjective Date of service: 05/14/17 Principal diagnosis: MRSA pneumonia, shock,sepsis,ESRD Interval history: More alert talkative. Still on levophed at 8 mcg/min, no fever. Microbiology: Blood cultures: 05/09 ngtd Urine cultures: Respiratory cultures: TA 05/09 MRSA Current Antimicrobials: zyvox 05/12 Previous Antimicrobials: Ceftriaxone Objective - Exam Narrative Exam: General appearance: more alert talkative Eyes: anicteric sclerae, moist conjunctivae; no lid-lag; PERRLA HENT: Atraumatic; +mask Neck: Trachea midline; supple, no thyromegaly or lymphadenopathy Lungs: ector rhonchi CV: rrr Abdomen: Soft, non-tender Extremities: No peripheral edema or extremity lymphadenopathy Skin: +multiple ecchymoses left forehead Psych: somnolent confused Neuro: somnolent Moving all extermities Lines: No CVL / PICC - Constitutional Vitals: Vital Signs Temp Pulse Resp BP Pulse Ox 98.8 F 99 H 24 85/53 98 05/14/17 09:30 05/14/17 10:30 05/14/17 09:30 05/14/17 10:30 05/14/17 09:30 Temperature -Last 24 Hours Temperature 98.8 F Temperature 98.5 F Temperature 98.8 F Temperature 98.7 F Temperature 98.8 F Temperature 97.8 F Temperature 98.3 F Temperature 98 F - Labs CBC & Chem 7: 05/14/17 06:10 05/14/17 06:10 Labs: Abnormal lab results 05/12/17 05/12/17 05/13/17 Range/Units 14:10 15:46 11:52 WBC (4.5-11.0) K/mm3 RBC (3.65-5.03) M/mm3 MCV (79-97) fl MCH (28-32) pg RDW (13.2-15.2) % Lymph % (Auto) (13.4-35.0) % [place] # (0.0-0.8) K/mm3 Baso # (0.0-0.1) K/mm3 Seg Neutrophils % (40.0-70.0) % Seg Neutrophils # (1.8-7.7) K/mm3 Potassium (3.6-5.0) mmol/L Chloride (98-107) mmol/L BUN (7-17) mg/dL Creatinine (0.7-1.2) mg/dL Glucose (65-100) mg/dL POC Glucose 162 H 153 H 185 H (70-105) AST (5-40) units/L ALT (7-56) units/L Alkaline Phosphatase (35-129) units/L Total Protein (6.3-8.2) g/dL 05/13/17 05/14/17 05/14/17 Range/Units 23:31 05:43 06:10 WBC (4.5-11.0) K/mm3 RBC (3.65-5.03) M/mm3 MCV (79-97) fl MCH (28-32) pg RDW (13.2-15.2) % Lymph % (Auto) (13.4-35.0) % [place] # (0.0-0.8) K/mm3 Baso # (0.0-0.1) K/mm3 Seg Neutrophils % (40.0-70.0) % Seg Neutrophils # (1.8-7.7) K/mm3 Potassium 3.4 L (3.6-5.0) mmol/L Chloride 89.1 L (98-107) mmol/L BUN 32 H (7-17) mg/dL Creatinine 3.0 H (0.7-1.2) mg/dL Glucose 224 H (65-100) mg/dL POC Glucose 281 H 215 H (70-105) AST 85 H (5-40) units/L ALT 162 H (7-56) units/L Alkaline Phosphatase 347 H (35-129) units/L Total Protein 8.5 H (6.3-8.2) g/dL 05/14/17 05/14/17 Range/Units 06:10 08:32 WBC 19.6 H (4.5-11.0) K/mm3 RBC 3.61 L (3.65-5.03) M/mm3 MCV 104 H (79-97) fl MCH 34 H (28-32) pg RDW 23.4 H (13.2-15.2) % Lymph % (Auto) 8.6 L (13.4-35.0) % [place] # 1.3 H (0.0-0.8) K/mm3 Baso # 0.2 H (0.0-0.1) K/mm3 Seg Neutrophils % 82.5 H (40.0-70.0) % Seg Neutrophils # 16.2 H (1.8-7.7) K/mm3 Potassium (3.6-5.0) mmol/L Chloride (98-107) mmol/L BUN (7-17) mg/dL Creatinine (0.7-1.2) mg/dL Glucose (65-100) mg/dL POC Glucose 204 H (70-105) AST (5-40) units/L ALT (7-56) units/L Alkaline Phosphatase (35-129) units/L Total Protein (6.3-8.2) g/dL
[2017-05-14] MEDS ORDERED: POTASSIUM CHLORIDE FEEDTUBE ONE (12:00)
[2017-05-14] MEDS: HEPARIN SUB-Q SCH ×2 (12:13→22:12)
[2017-05-14] MEDS: BABY ASPIRIN PO SCH (12:13)
[2017-05-14] MEDS: HABITROL TD SCH (12:13)
[2017-05-14] MEDS: SENSIPAR PO SCH ×2 (12:13→22:15)
[2017-05-14] MEDS: LEVOPHED 8 MG in NACL 0.9% 250ML 242 ML IV SCH (12:14)
--- NOTE | 2017-05-14 12:35 | Progress Note ---
Assessment and Plan - Patient Problems (1) ESRD (end stage renal disease) Current Visit: Yes Status: Chronic Plan to address problem: Hemodialyzing again today on Levophed drip UF turned off as SBP is in the 70's despite being on 10 mcg of Levophed Has 17 minutes left on dialysis machine at time of rounds UF removed yesterday was 4100 ml Fluid restriction of 1 liter per day Renally dose medications Monitor I/O's Obtain daily weights Assess dialysis needs daily (2) Diabetes mellitus Current Visit: Yes Status: Acute Plan to address problem: As per Attending (3) Acute hypoxemic respiratory failure Current Visit: No Status: Acute Plan to address problem: S/P intubation. On venturi mask. (4) Hypotension Current Visit: Yes Status: Acute Plan to address problem: On Levophed drip Subjective Date of service: 05/14/17 Principal diagnosis: MRSA pneumonia, shock,sepsis,ESRD Interval history: Patient seen lying in bed. Receiving hemodialysis and complaining of stomach cramping and wants to stop dialysis. On Levophed drip-BP in the 70's. Objective - Vital Signs Vital signs: Vital Signs - 12hr 05/14/17 05/14/17 05/14/17 00:45 01:00 01:15 Temperature Pulse Rate 115 H 113 H 98 H Pulse Rate [ Apical] Pulse Rate [ Left Dorsalis Pedis] Pulse Rate [ Left Posterior Tibial] Pulse Rate [ Left Radial] Pulse Rate [ Right Dorsalis Pedis] Pulse Rate [ Right Posterior Tibial] Respiratory 22 18 15 Rate Blood Pressure 94/60 106/65 106/65 O2 Sat by Pulse 98 96 Oximetry O2 Sat by Pulse Oximetry [ Anterior Bilateral Throughout] 05/14/17 05/14/17 05/14/17 01:31 01:45 02:00 Temperature Pulse Rate 100 H 98 H 97 H Pulse Rate [ Apical] Pulse Rate [ Left Dorsalis Pedis] Pulse Rate [ Left Posterior Tibial] Pulse Rate [ Left Radial] Pulse Rate [ Right Dorsalis Pedis] Pulse Rate [ Right Posterior Tibial] Respiratory 26 H 24 23 Rate Blood Pressure 106/65 106/65 97/58 O2 Sat by Pulse 95 96 93 Oximetry O2 Sat by Pulse Oximetry [ Anterior Bilateral Throughout] 05/14/17 05/14/17 05/14/17 02:15 02:31 02:45 Temperature Pulse Rate 99 H 114 H 114 H Pulse Rate [ Apical] Pulse Rate [ Left Dorsalis Pedis] Pulse Rate [ Left Posterior Tibial] Pulse Rate [ Left Radial] Pulse Rate [ Right Dorsalis Pedis] Pulse Rate [ Right Posterior Tibial] Respiratory 18 31 H 24 Rate Blood Pressure 97/58 97/58 O2 Sat by Pulse 95 97 97 Oximetry O2 Sat by Pulse Oximetry [ Anterior Bilateral Throughout] 05/14/17 05/14/17 05/14/17 03:00 03:15 03:31 Temperature Pulse Rate 114 H 113 H 112 H Pulse Rate [ Apical] Pulse Rate [ Left Dorsalis Pedis] Pulse Rate [ Left Posterior Tibial] Pulse Rate [ Left Radial] Pulse Rate [ Right Dorsalis Pedis] Pulse Rate [ Right Posterior Tibial] Respiratory 19 25 H 26 H Rate Blood Pressure 106/65 106/65 106/65 O2 Sat by Pulse 98 97 97 Oximetry O2 Sat by Pulse Oximetry [ Anterior Bilateral Throughout] 05/14/17 05/14/17 05/14/17 03:40 03:45 04:01 Temperature 98.8 F Pulse Rate 112 H 106 H Pulse Rate [ 111 H Apical] Pulse Rate [ 111 H Left Dorsalis Pedis] Pulse Rate [ 111 H Left Posterior Tibial] Pulse Rate [ 111 H Left Radial] Pulse Rate [ 111 H Right Dorsalis Pedis] Pulse Rate [ 111 H Right Posterior Tibial] Respiratory 20 14 Rate Blood Pressure 106/65 103/58 O2 Sat by Pulse 97 85 Oximetry O2 Sat by Pulse Oximetry [ Anterior Bilateral Throughout] 05/14/17 05/14/17 05/14/17 04:15 04:31 04:45 Temperature Pulse Rate 96 H 95 H 97 H Pulse Rate [ Apical] Pulse Rate [ Left Dorsalis Pedis] Pulse Rate [ Left Posterior Tibial] Pulse Rate [ Left Radial] Pulse Rate [ Right Dorsalis Pedis] Pulse Rate [ Right Posterior Tibial] Respiratory 25 H 22 18 Rate Blood Pressure 103/58 103/58 103/58 O2 Sat by Pulse 96 96 94 Oximetry O2 Sat by Pulse Oximetry [ Anterior Bilateral Throughout] 05/14/17 05/14/17 05/14/17 05:00 05:15 05:31 Temperature Pulse Rate 106 H 106 H 106 H Pulse Rate [ Apical] Pulse Rate [ Left Dorsalis Pedis] Pulse Rate [ Left Posterior Tibial] Pulse Rate [ Left Radial] Pulse Rate [ Right Dorsalis Pedis] Pulse Rate [ Right Posterior Tibial] Respiratory 25 H 23 26 H Rate Blood Pressure 87/48 87/48 103/58 O2 Sat by Pulse 96 97 98 Oximetry O2 Sat by Pulse Oximetry [ Anterior Bilateral Throughout] 05/14/17 05/14/17 05/14/17 05:45 06:00 06:15 Temperature Pulse Rate 104 H 104 H 94 H Pulse Rate [ Apical] Pulse Rate [ Left Dorsalis Pedis] Pulse Rate [ Left Posterior Tibial] Pulse Rate [ Left Radial] Pulse Rate [ Right Dorsalis Pedis] Pulse Rate [ Right Posterior Tibial] Respiratory 29 H 28 H 25 H Rate Blood Pressure 103/58 89/51 106/63 O2 Sat by Pulse 97 95 Oximetry O2 Sat by Pulse Oximetry [ Anterior Bilateral Throughout] 05/14/17 05/14/17 05/14/17 06:30 06:45 07:00 Temperature Pulse Rate 99 H 99 H 98 H Pulse Rate [ Apical] Pulse Rate [ Left Dorsalis Pedis] Pulse Rate [ Left Posterior Tibial] Pulse Rate [ Left Radial] Pulse Rate [ Right Dorsalis Pedis] Pulse Rate [ Right Posterior Tibial] Respiratory 30 H 24 24 Rate Blood Pressure 112/59 103/67 121/70 O2 Sat by Pulse 97 97 96 Oximetry O2 Sat by Pulse Oximetry [ Anterior Bilateral Throughout] 05/14/17 05/14/17 05/14/17 07:15 07:30 07:45 Temperature Pulse Rate 97 H 96 H 96 H Pulse Rate [ Apical] Pulse Rate [ Left Dorsalis Pedis] Pulse Rate [ Left Posterior Tibial] Pulse Rate [ Left Radial] Pulse Rate [ Right Dorsalis Pedis] Pulse Rate [ Right Posterior Tibial] Respiratory 18 22 29 H Rate Blood Pressure 116/68 111/67 107/65 O2 Sat by Pulse 96 Oximetry O2 Sat by Pulse Oximetry [ Anterior Bilateral Throughout] 05/14/17 05/14/17 05/14/17 08:00 08:15 08:31 Temperature 98.5 F Pulse Rate 94 H 97 H 107 H Pulse Rate [ Apical] Pulse Rate [ Left Dorsalis Pedis] Pulse Rate [ Left Posterior Tibial] Pulse Rate [ Left Radial] Pulse Rate [ Right Dorsalis Pedis] Pulse Rate [ Right Posterior Tibial] Respiratory 27 H 19 20 Rate Blood Pressure 99/62 103/68 105/59 O2 Sat by Pulse 96 94 Oximetry O2 Sat by Pulse Oximetry [ Anterior Bilateral Throughout] 1205/14/17 05/14/17 08:45 09:30 09:45 Temperature 98.8 F Pulse Rate 113 H 98 H 99 H Pulse Rate [ Apical] Pulse Rate [ Left Dorsalis Pedis] Pulse Rate [ Left Posterior Tibial] Pulse Rate [ Left Radial] Pulse Rate [ Right Dorsalis Pedis] Pulse Rate [ Right Posterior Tibial] Respiratory 22 24 Rate Blood Pressure 112/67 110/67 111/68 O2 Sat by Pulse 96 Oximetry O2 Sat by Pulse 98 Oximetry [ Anterior Bilateral Throughout] 05/14/17 05/14/17 05/14/17 10:00 10:15 10:30 Temperature Pulse Rate 99 H 101 H 99 H Pulse Rate [ Apical] Pulse Rate [ Left Dorsalis Pedis] Pulse Rate [ Left Posterior Tibial] Pulse Rate [ Left Radial] Pulse Rate [ Right Dorsalis Pedis] Pulse Rate [ Right Posterior Tibial] Respiratory Rate Blood Pressure 90/59 91/50 85/53 O2 Sat by Pulse Oximetry O2 Sat by Pulse Oximetry [ Anterior Bilateral Throughout] 05/14/17 05/14/17 10:45 11:00 Temperature Pulse Rate 100 H 101 H Pulse Rate [ Apical] Pulse Rate [ Left Dorsalis Pedis] Pulse Rate [ Left Posterior Tibial] Pulse Rate [ Left Radial] Pulse Rate [ Right Dorsalis Pedis] Pulse Rate [ Right Posterior Tibial] Respiratory Rate Blood Pressure 97/44 95/47 O2 Sat by Pulse Oximetry O2 Sat by Pulse Oximetry [ Anterior Bilateral Throughout] - General Appearance General appearance: well-developed, cachectic, chronically ill, fatigue EENT: ATNC, PERRL, hearing intact, vision intact Neck: no JVD, supple Respiratory: Present: Decreased Breath Sounds Cardiology: tachycardia, S1S2 Gastrointestinal: normoactive bowel sounds Integumentary: warm and dry Neurologic: other (oriented to self and birthdate) Musculoskeletal: other (No edema to BLE) - Lab 05/14/17 06:10 05/14/17 06:10 Most recent lab results Calcium 9.8 mg/dL (8.4-10.2) 05/14/17 06:10
[2017-05-14] MEDS: ZOLOFT PO SCH (12:59)
[2017-05-14] MEDS: RENVELA PO SCH ×2 (12:59→15:38)
[2017-05-14] MEDS: PROVENTIL IH SCH ×2 (14:58→19:44)
--- NOTE | 2017-05-14 15:02 | Progress Note ---
Assessment and Plan Assessment and plan: --Sepsis/possible septic shock; on Levophed , titrate systolic blood pressures tomorrow 100, map more than 65 --Acute on chronic respiratory failure; secondary to fluid overload/MRSA pneumonia oxygen titrate O2 sats to more than 90%, HD per schedule, BiPAP/intubate as needed. Pulmonary following --Hypotension; patient's blood pressures have been in the lower range, closely monitor, Levophed if no improvement --Metabolic encephalopathy at the time of admission; intubated to protect the airway s/p extubation, continue oxygen titrate O2 sats to more than 90% and supportive care --Poor oral nutrition ; encourage To increase oral nutrition , [place] as needed --Positive cardiac enzymes; probably nonspecific secondary to end-stage renal disease --Coronary artery disease s/p PCI : Continue current cardiac medications, cardio following --Cardiomyopathy ejection fraction of 40% 04/2016 --End-stage renal disease on hemodialysis, HD per schedule --Hypertension; hold antihypertensives, blood pressure is in the lower range --Dyslipidemia; and new lipid-lowering medications --DVT prophylaxis; heparin renal dose Cardiology, pulmonary, nephrology, ID recommendations noted and appreciated Critical care time 31 minutes The high probability of a clinically significant, sudden or life threatening deterioration of the [cardiovascular, pulmonary, infectious, renal and neuro] system(s) required my full and direct attention, intervention and personal management. The aggregate critical care time was [31] minutes. This time is in addition to time spent performing reported procedures but includes the following : [] Data Review and interpretation [] Patient assessment and monitoring of vital signs [] Documentation [] Medication orders and management Hospitalist Physical - Constitutional Vitals: Temp Pulse Resp BP Pulse Ox 98.6 F 101 H 24 78/43 98 05/14/17 12:00 05/14/17 12:45 05/14/17 09:30 05/14/17 12:45 05/14/17 09:30 General appearance: Present: mild distress, cachectic, other (Lethargic) - EENT Eyes: Present: PERRL, irregular pupil - Neck Neck: Present: supple, normal ROM - Respiratory Respiratory effort: normal, labored Respiratory: bilateral: diminished, rhonchi, negative: rales, wheezing - Cardiovascular Rhythm: regular Heart Sounds: Present: S1 & S2 - Extremities Extremities: no ischemia, No edema - Abdominal General gastrointestinal: soft, non-tender, non-distended, normal bowel sounds - Integumentary Integumentary: Present: clear, warm - Psychiatric Psychiatric: other ( lethargy, minimally communicative) - Neurologic Neurologic: moves all extremities Results - Labs CBC & Chem 7: 05/14/17 06:10 05/14/17 06:10 Labs: Laboratory Last Values WBC 19.6 K/mm3 (4.5-11.0) H 05/14/17 06:10 RBC 3.61 M/mm3 (3.65-5.03) L 05/14/17 06:10 Hgb 12.3 gm/dl (10.1-14.3) 05/14/17 06:10 Hct 37.6 % (30.3-42.9) D 05/14/17 06:10 MCV 104 fl (79-97) H 05/14/17 06:10 MCH 34 pg (28-32) H 05/14/17 06:10 MCHC 33 % (30-34) 05/14/17 06:10 RDW 23.4 % (13.2-15.2) H 05/14/17 06:10 Plt Count 397 K/mm3 (140-440) 05/14/17 06:10 Lymph % (Auto) 8.6 % (13.4-35.0) L 05/14/17 06:10 [place] % (Auto) 6.7 % (0.0-7.3) 05/14/17 06:10 Eos % (Auto) 1.4 % (0.0-4.3) 05/14/17 06:10 Baso % (Auto) 0.8 % (0.0-1.8) 05/14/17 06:10 Lymph # 1.7 K/mm3 (1.2-5.4) 05/14/17 06:10 [place] # 1.3 K/mm3 (0.0-0.8) H 05/14/17 06:10 Eos # 0.3 K/mm3 (0.0-0.4) 05/14/17 06:10 Baso # 0.2 K/mm3 (0.0-0.1) H 05/14/17 06:10 Add Manual Diff Complete 05/13/17 05:30 Total Counted 100 12/14/17 05:30 Seg Neutrophils % 82.5 % (40.0-70.0) H 05/14/17 06:10 Seg Neuts % (Manual) 89.0 % (40.0-70.0) H 05/13/17 05:30 Band Neutrophils % 0 % 05/13/17 05:30 Lymphocytes % (Manual) 6.0 % (13.4-35.0) L 05/13/17 05:30 Reactive Lymphs % (Man) 0 % 05/13/17 05:30 Monocytes % (Manual) 4.0 % (0.0-7.3) 05/13/17 05:30 Eosinophils % (Manual) 0 % (0.0-4.3) 05/13/17 05:30 Basophils % (Manual) 0 % (0.0-1.8) 05/13/17 05:30 Metamyelocytes % 1.0 % 05/13/17 05:30 Myelocytes % 0 % 05/13/17 05:30 Promyelocytes % 0 % 05/13/17 05:30 Blast Cells % 0 % 05/13/17 05:30 Nucleated RBC % 1.0 % (0.0-0.9) H 05/13/17 05:30 Seg Neutrophils # 16.2 K/mm3 (1.8-7.7) H 05/14/17 06:10 Seg Neutrophils # Man 19.6 K/mm3 (1.8-7.7) H 05/13/17 05:30 Band Neutrophils # 0.0 K/mm3 05/13/17 05:30 Lymphocytes # (Manual) 1.3 K/mm3 (1.2-5.4) 05/13/17 05:30 Abs React Lymphs (Man) 0.0 K/mm3 05/13/17 05:30 Monocytes # (Manual) 0.9 K/mm3 (0.0-0.8) H 05/13/17 05:30 Eosinophils # (Manual) 0.0 K/mm3 (0.0-0.4) 05/13/17 05:30 Basophils # (Manual) 0.0 K/mm3 (0.0-0.1) 05/13/17 05:30 Metamyelocytes # 0.2 K/mm3 05/13/17 05:30 Myelocytes # 0.0 K/mm3 05/13/17 05:30 Promyelocytes # 0.0 K/mm3 05/13/17 05:30 Blast Cells # 0.0 K/mm3 05/13/17 05:30 WBC Morphology Not Reportable 05/13/17 05:30 Hypersegmented Neuts Not Reportable 05/13/17 05:30 Hyposegmented Neuts Not Reportable 05/13/17 05:30 Hypogranular Neuts Not Reportable 05/13/17 05:30 Smudge Cells Not Reportable 05/13/17 05:30 Toxic Granulation Not Reportable 05/13/17 05:30 Toxic Vacuolation Not Reportable 05/13/17 05:30 Dohle Bodies Not Reportable 05/13/17 05:30 Pelger-Huet Anomaly Not Reportable 05/13/17 05:30 Anthony Rods Not Reportable 05/13/17 05:30 Platelet Estimate Appears normal 05/13/17 05:30 Clumped Platelets Not Reportable 05/13/17 05:30 Plt Clumps, EDTA Not Reportable 05/13/17 05:30 Large Platelets Not Reportable 05/13/17 05:30 Giant Platelets Not Reportable 05/13/17 05:30 Platelet Satelliting Not Reportable 05/13/17 05:30 Plt Morphology Comment Not Reportable 05/13/17 05:30 RBC Morphology Not Reportable 05/13/17 05:30 Dimorphic RBCs Not Reportable 05/13/17 05:30 Polychromasia 1+ 05/13/17 05:30 Hypochromasia Not Reportable 05/13/17 05:30 Poikilocytosis 1+ 05/13/17 05:30 Anisocytosis 1+ 05/13/17 05:30 Microcytosis Not Reportable 05/13/17 05:30 Macrocytosis Not Reportable 05/13/17 05:30 Spherocytes Not Reportable 05/13/17 05:30 Pappenheimer Bodies Not Reportable 05/13/17 05:30 Sickle Cells Not Reportable 05/13/17 05:30 Target Cells Few 05/13/17 05:30 Tear Drop Cells 1+ 05/13/17 05:30 Ovalocytes 1+ 05/13/17 05:30 Helmet Cells Not Reportable 05/13/17 05:30 [place] Bodies Not Reportable 05/13/17 05:30 [place] Rings Not Reportable 05/13/17 05:30 [place] Cells Not Reportable 05/13/17 05:30 Bite Cells Not Reportable 05/13/17 05:30 Crenated Cell Not Reportable 05/13/17 05:30 Elliptocytes Few 05/13/17 05:30 Acanthocytes (Spur) Not Reportable 05/13/17 05:30 Rouleaux Not Reportable 05/13/17 05:30 Hemoglobin C Crystals Not Reportable 05/13/17 05:30 Schistocytes Not Reportable 05/13/17 05:30 Malaria parasites Not Reportable 05/13/17 05:30 Jose Bodies Not Reportable 05/13/17 05:30 Hem Pathologist Commnt No 05/13/17 05:30 PT 15.2 Sec. (12.2-14.9) H 05/08/17 21:25 INR 1.14 (0.87-1.13) H 05/08/17 21:25 POC ABG pH 7.450 (7.35-7.45) 05/12/17 13:10 POC ABG pCO2 36.7 (35-45) 05/12/17 13:10 POC ABG pO2 66 (80-105) L 05/12/17 13:10 POC ABG HCO3 25.5 05/12/17 13:10 POC ABG Total CO2 27 05/12/17 13:10 POC ABG O2 Sat 94 05/12/17 13:10 POC ABG Base Excess 2 05/12/17 13:10 FiO2 25 % 05/12/17 13:10 Sodium 138 mmol/L (137-145) 05/14/17 06:10 Potassium 3.4 mmol/L (3.6-5.0) L 05/14/17 06:10 Chloride 89.1 mmol/L (98-107) L 05/14/17 06:10 Carbon Dioxide 26 mmol/L (22-30) 05/14/17 06:10 Anion Gap 26 mmol/L 05/14/17 06:10 BUN 32 mg/dL (7-17) H 05/14/17 06:10 Creatinine 3.0 mg/dL (0.7-1.2) H 05/14/17 06:10 Estimated GFR 16 ml/min 05/14/17 06:10 BUN/Creatinine Ratio 11 % 05/14/17 06:10 Glucose 224 mg/dL (65-100) H 05/14/17 06:10 POC Glucose 204 (70-105) H 05/14/17 08:32 Lactic Acid 2.60 mmol/L (0.7-2.0) H* 05/12/17 16:05 Calcium 9.8 mg/dL (8.4-10.2) 05/14/17 06:10 Total Bilirubin 1.10 mg/dL (0.1-1.2) 05/14/17 06:10 AST 85 units/L (5-40) H 05/14/17 06:10 ALT 162 units/L (7-56) H 05/14/17 06:10 Alkaline Phosphatase 347 units/L (35-129) H 05/14/17 06:10 Total Creatine Kinase 24 units/L (30-135) L 05/09/17 14:00 CK-MB (CK-2) 2.2 ng/mL (0.0-4.0) 05/09/17 14:00 CK-MB (CK-2) Rel Index 9.1 (0-4) H 05/09/17 14:00 Troponin T 0.654 ng/mL (0.00-0.029) H* 05/09/17 14:00 C-Reactive Protein 44.70 mg/dL (0.00-1.30) H 05/11/17 15:30 Total Protein 8.5 g/dL (6.3-8.2) H 05/14/17 06:10 Albumin 4.3 g/dL (3.9-5) 05/14/17 06:10 Albumin/Globulin Ratio 1.0 % 05/14/17 06:10 Triglycerides 125 mg/dL (2-149) 05/09/17 06:00 Cholesterol 73 mg/dL (50-199) 05/09/17 06:00 LDL Cholesterol Direct 21 mg/dL (50-130) L 05/09/17 06:00 HDL Cholesterol 27 mg/dL (40-59) L 05/09/17 06:00 Cholesterol/HDL Ratio 2.70 % 05/09/17 06:00 Urine Color Yellow (Yellow) 05/08/17 Unknown Urine Turbidity Clear (Clear) 05/08/17 Unknown Urine pH 7.0 (5.0-7.0) 05/08/17 Unknown Ur Specific [place] 1.014 (1.003-1.030) 05/08/17 Unknown Urine Protein 100 mg/dl mg/dL (Negative) 05/08/17 Unknown Urine Glucose (UA) 150 mg/dL (Negative) 05/08/17 Unknown Urine Ketones Neg mg/dL (Negative) 05/08/17 Unknown Urine Blood Sm (Negative) 05/08/17 Unknown Urine Nitrite Neg (Negative) 05/08/17 Unknown Urine Bilirubin Neg (Negative) 05/08/17 Unknown Urine Urobilinogen < 2.0 mg/dL (<2.0) 05/08/17 Unknown Ur Leukocyte Esterase Tr (Negative) 05/08/17 Unknown Urine WBC (Auto) 16.0 /HPF (0.0-6.0) H 05/08/17 Unknown Urine RBC (Auto) 3.0 /HPF (0.0-6.0) 05/08/17 Unknown U Epithel Cells (Auto) < 1.0 /HPF (0-13.0) 05/08/17 Unknown Urine Bacteria (Auto) 1+ /HPF (Negative) 05/08/17 Unknown Salicylates < 0.3 mg/dL (2.8-20.0) L 05/08/17 21:35 Acetaminophen < 15.0 ug/mL (10.0-30.0) 05/08/17 21:35 Hepatitis A IgM Ab Non-reactive (NonReactive) 05/09/17 17:00 Hep Bs Antigen Non-reactive (Negative) 05/09/17 17:00 Hep B Core IgM Ab Non-reactive (NonReactive) 05/09/17 17:00 Hepatitis C Antibody Reactive (NonReactive) A 05/09/17 17:00
[2017-05-14] MEDS: DESYREL PO SCH (22:15)
[2017-05-15] MEDS: PROVENTIL IH SCH ×4 (01:38→19:58)
[2017-05-15] MEDS: ZYVOX 600MG/300ML 600 MG/300 ML BAG IV SCH (02:10)
[2017-05-15 04:30] LABS: Basophils # (Auto) 0.1 K/mm3 (0.0-0.1); Basophils % (Auto) 0.5 % (0.0-1.8); Eosinophils # (Auto) 0.4 K/mm3 (0.0-0.4); Eosinophils % (Auto) 1.9 % (0.0-4.3); Hemoglobin 11.5 gm/dl (10.1-14.3); Lymphocytes # (Auto) 1.9 K/mm3 (1.2-5.4); Lymphocytes % (Auto) 10.4 % (13.4-35.0); Mean Corpuscular HGB Conc 32 % (30-34); Mean Corpuscular Hemoglobin 34 pg (28-32); Mean Corpuscular Volume 105 fl (79-97); Monocytes # (Auto) 1.4 K/mm3 (0.0-0.8); Monocytes % (Auto) 7.7 % (0.0-7.3); Platelet Count 380 K/mm3 (140-440); Red Blood Count 3.42 M/mm3 (3.65-5.03)
[2017-05-15 04:31] LABS: Albumin 3.7 g/dL (3.9-5); Calcium 9.5 mg/dL (8.4-10.2)
[2017-05-15] MEDS: NEURONTIN PO SCH ×3 (05:08→22:28)
[2017-05-15] MEDS: RENVELA PO SCH ×4 (09:46→18:53)
[2017-05-15] MEDS: ZOLOFT PO SCH (09:56)
[2017-05-15] MEDS: HEPARIN SUB-Q SCH ×2 (09:56→22:26)
[2017-05-15] MEDS: HABITROL TD SCH (09:57)
[2017-05-15] MEDS: SENSIPAR PO SCH ×2 (09:57→22:27)
[2017-05-15] MEDS: BABY ASPIRIN PO SCH (09:57)
--- NOTE | 2017-05-15 10:19 | Progress Note ---
Assessment and Plan (1) ESRD (end stage renal disease) Current Visit: Yes Status: Chronic Plan to address problem: no indication for HD today Fluid restriction of 1 liter per day Renally dose medications Monitor I/O's Obtain daily weights Assess dialysis needs daily (2) Diabetes mellitus Current Visit: Yes Status: Acute Plan to address problem: per primary team (3) Acute hypoxemic respiratory failure Current Visit: No Status: Acute Plan to address problem: S/P intubation. (4) Hypotension Current Visit: Yes Status: Acute Plan to address problem: On Levophed drip Subjective Date of service: 05/15/17 Principal diagnosis: MRSA pneumonia, shock,sepsis,ESRD Interval history: feels weak but comfortable Objective - Vital Signs Vital signs: Vital Signs - 12hr 05/14/17 05/14/17 05/14/17 22:30 22:45 23:01 Temperature Pulse Rate 108 H 107 H 108 H Pulse Rate [ Anterior Bilateral Throughout] Pulse Rate [ Apical] Pulse Rate [ Left Dorsalis Pedis] Pulse Rate [ Left Posterior Tibial] Pulse Rate [ Left Radial] Pulse Rate [ Right Dorsalis Pedis] Pulse Rate [ Right Posterior Tibial] Pulse Rate [ Right Radial] Respiratory 25 H 25 H 26 H Rate Respiratory Rate [Anterior Bilateral Throughout] Blood Pressure 112/65 106/63 97/58 O2 Sat by Pulse 99 99 98 Oximetry 05/14/17 05/14/17 05/14/17 23:15 23:30 23:45 Temperature Pulse Rate 107 H 106 H 108 H Pulse Rate [ Anterior Bilateral Throughout] Pulse Rate [ Apical] Pulse Rate [ Left Dorsalis Pedis] Pulse Rate [ Left Posterior Tibial] Pulse Rate [ Left Radial] Pulse Rate [ Right Dorsalis Pedis] Pulse Rate [ Right Posterior Tibial] Pulse Rate [ Right Radial] Respiratory 24 28 H 22 Rate Respiratory Rate [Anterior Bilateral Throughout] Blood Pressure 85/49 99/59 98/56 O2 Sat by Pulse 99 Oximetry 05/15/17 05/15/17 05/15/17 00:00 00:15 00:30 Temperature Pulse Rate 106 H 104 H 104 H Pulse Rate [ Anterior Bilateral Throughout] Pulse Rate [ 91 H Apical] Pulse Rate [ 91 H Left Dorsalis Pedis] Pulse Rate [ 91 H Left Posterior Tibial] Pulse Rate [ 91 H Left Radial] Pulse Rate [ 91 H Right Dorsalis Pedis] Pulse Rate [ 91 H Right Posterior Tibial] Pulse Rate [ 91 H Right Radial] Respiratory 21 22 20 Rate Respiratory Rate [Anterior Bilateral Throughout] Blood Pressure 102/61 98/57 103/60 O2 Sat by Pulse 98 98 97 Oximetry 05/15/17 05/15/17 05/15/17 00:35 00:45 01:00 Temperature Pulse Rate 106 H 99 H 103 H Pulse Rate [ Anterior Bilateral Throughout] Pulse Rate [ Apical] Pulse Rate [ Left Dorsalis Pedis] Pulse Rate [ Left Posterior Tibial] Pulse Rate [ Left Radial] Pulse Rate [ Right Dorsalis Pedis] Pulse Rate [ Right Posterior Tibial] Pulse Rate [ Right Radial] Respiratory 18 28 H 27 H Rate Respiratory Rate [Anterior Bilateral Throughout] Blood Pressure 93/56 96/59 O2 Sat by Pulse 98 97 Oximetry 05/15/17 05/15/17 05/15/17 01:15 01:30 01:39 Temperature Pulse Rate 101 H 103 H Pulse Rate [ 102 H Anterior Bilateral Throughout] Pulse Rate [ Apical] Pulse Rate [ Left Dorsalis Pedis] Pulse Rate [ Left Posterior Tibial] Pulse Rate [ Left Radial] Pulse Rate [ Right Dorsalis Pedis] Pulse Rate [ Right Posterior Tibial] Pulse Rate [ Right Radial] Respiratory 25 H 25 H Rate Respiratory 24 Rate [Anterior Bilateral Throughout] Blood Pressure 93/56 97/57 O2 Sat by Pulse Oximetry 05/15/17 05/15/17 05/15/17 01:45 01:55 02:00 Temperature Pulse Rate 103 H 100 H Pulse Rate [ 104 H Anterior Bilateral Throughout] Pulse Rate [ Apical] Pulse Rate [ Left Dorsalis Pedis] Pulse Rate [ Left Posterior Tibial] Pulse Rate [ Left Radial] Pulse Rate [ Right Dorsalis Pedis] Pulse Rate [ Right Posterior Tibial] Pulse Rate [ Right Radial] Respiratory 27 H 23 Rate Respiratory 24 Rate [Anterior Bilateral Throughout] Blood Pressure 100/60 98/57 O2 Sat by Pulse Oximetry 05/15/17 05/15/17 05/15/17 02:15 02:30 02:45 Temperature Pulse Rate 102 H 89 90 Pulse Rate [ Anterior Bilateral Throughout] Pulse Rate [ Apical] Pulse Rate [ Left Dorsalis Pedis] Pulse Rate [ Left Posterior Tibial] Pulse Rate [ Left Radial] Pulse Rate [ Right Dorsalis Pedis] Pulse Rate [ Right Posterior Tibial] Pulse Rate [ Right Radial] Respiratory 27 H 28 H 23 Rate Respiratory Rate [Anterior Bilateral Throughout] Blood Pressure 101/62 99/57 98/55 O2 Sat by Pulse 99 Oximetry 05/15/17 05/15/17 05/15/17 03:00 03:15 03:30 Temperature Pulse Rate 91 H 104 H 94 H Pulse Rate [ Anterior Bilateral Throughout] Pulse Rate [ Apical] Pulse Rate [ Left Dorsalis Pedis] Pulse Rate [ Left Posterior Tibial] Pulse Rate [ Left Radial] Pulse Rate [ Right Dorsalis Pedis] Pulse Rate [ Right Posterior Tibial] Pulse Rate [ Right Radial] Respiratory 25 H 27 H 25 H Rate Respiratory Rate [Anterior Bilateral Throughout] Blood Pressure 101/63 110/69 100/62 O2 Sat by Pulse 99 Oximetry 05/15/17 05/15/17 05/15/17 03:45 04:00 04:15 Temperature Pulse Rate 91 H 92 H 94 H Pulse Rate [ Anterior Bilateral Throughout] Pulse Rate [ Apical] Pulse Rate [ Left Dorsalis Pedis] Pulse Rate [ Left Posterior Tibial] Pulse Rate [ Left Radial] Pulse Rate [ Right Dorsalis Pedis] Pulse Rate [ Right Posterior Tibial] Pulse Rate [ Right Radial] Respiratory 26 H 26 H 28 H Rate Respiratory Rate [Anterior Bilateral Throughout] Blood Pressure 104/61 108/60 105/59 O2 Sat by Pulse 99 Oximetry 05/15/17 05/15/17 05/15/17 04:22 04:30 04:45 Temperature 98.1 F Pulse Rate 104 H 96 H Pulse Rate [ Anterior Bilateral Throughout] Pulse Rate [ Apical] Pulse Rate [ Left Dorsalis Pedis] Pulse Rate [ Left Posterior Tibial] Pulse Rate [ Left Radial] Pulse Rate [ Right Dorsalis Pedis] Pulse Rate [ Right Posterior Tibial] Pulse Rate [ Right Radial] Respiratory 28 H 24 Rate Respiratory Rate [Anterior Bilateral Throughout] Blood Pressure 114/60 107/62 O2 Sat by Pulse 98 98 Oximetry 05/15/17 05/15/17 05/15/17 05:00 05:15 05:30 Temperature Pulse Rate 95 H 96 H 95 H Pulse Rate [ Anterior Bilateral Throughout] Pulse Rate [ Apical] Pulse Rate [ Left Dorsalis Pedis] Pulse Rate [ Left Posterior Tibial] Pulse Rate [ Left Radial] Pulse Rate [ Right Dorsalis Pedis] Pulse Rate [ Right Posterior Tibial] Pulse Rate [ Right Radial] Respiratory 26 H 24 25 H Rate Respiratory Rate [Anterior Bilateral Throughout] Blood Pressure 106/54 104/65 113/66 O2 Sat by Pulse 98 97 Oximetry 05/15/17 05/15/1705/15/17 05:45 06:00 06:15 Temperature Pulse Rate 96 H 96 H 95 H Pulse Rate [ Anterior Bilateral Throughout] Pulse Rate [ Apical] Pulse Rate [ Left Dorsalis Pedis] Pulse Rate [ Left Posterior Tibial] Pulse Rate [ Left Radial] Pulse Rate [ Right Dorsalis Pedis] Pulse Rate [ Right Posterior Tibial] Pulse Rate [ Right Radial] Respiratory 22 26 H 23 Rate Respiratory Rate [Anterior Bilateral Throughout] Blood Pressure 113/65 104/68 105/67 O2 Sat by Pulse 96 97 Oximetry 05/15/17 05/15/17 05/15/17 06:30 06:45 07:00 Temperature Pulse Rate 98 H 104 H 105 H Pulse Rate [ Anterior Bilateral Throughout] Pulse Rate [ Apical] Pulse Rate [ Left Dorsalis Pedis] Pulse Rate [ Left Posterior Tibial] Pulse Rate [ Left Radial] Pulse Rate [ Right Dorsalis Pedis] Pulse Rate [ Right Posterior Tibial] Pulse Rate [ Right Radial] Respiratory 24 26 H 28 H Rate Respiratory Rate [Anterior Bilateral Throughout] Blood Pressure 98/62 106/65 105/61 O2 Sat by Pulse 96 96 Oximetry 05/15/17 05/15/17 05/15/17 07:15 07:30 07:45 Temperature Pulse Rate 104 H 105 H 106 H Pulse Rate [ Anterior Bilateral Throughout] Pulse Rate [ Apical] Pulse Rate [ Left Dorsalis Pedis] Pulse Rate [ Left Posterior Tibial] Pulse Rate [ Left Radial] Pulse Rate [ Right Dorsalis Pedis] Pulse Rate [ Right Posterior Tibial] Pulse Rate [ Right Radial] Respiratory 28 H 22 19 Rate Respiratory Rate [Anterior Bilateral Throughout] Blood Pressure 101/62 101/57 110/66 O2 Sat by Pulse 96 95 97 Oximetry 05/15/17 05/15/17 05/15/17 08:00 08:01 08:15 Temperature 98.5 F Pulse Rate 106 H 106 H Pulse Rate [ Anterior Bilateral Throughout] Pulse Rate [ Apical] Pulse Rate [ Left Dorsalis Pedis] Pulse Rate [ Left Posterior Tibial] Pulse Rate [ Left Radial] Pulse Rate [ Right Dorsalis Pedis] Pulse Rate [ Right Posterior Tibial] Pulse Rate [ Right Radial] Respiratory 30 H 34 H Rate Respiratory Rate [Anterior Bilateral Throughout] Blood Pressure 105/40 103/62 O2 Sat by Pulse 96 Oximetry 05/15/17 05/15/17 05/15/17 08:30 08:45 09:00 Temperature Pulse Rate 107 H 108 H 107 H Pulse Rate [ Anterior Bilateral Throughout] Pulse Rate [ Apical] Pulse Rate [ Left Dorsalis Pedis] Pulse Rate [ Left Posterior Tibial] Pulse Rate [ Left Radial] Pulse Rate [ Right Dorsalis Pedis] Pulse Rate [ Right Posterior Tibial] Pulse Rate [ Right Radial] Respiratory 21 18 34 H Rate Respiratory Rate [Anterior Bilateral Throughout] Blood Pressure 94/66 94/66 89/53 O2 Sat by Pulse 84 97 98 Oximetry - General Appearance General appearance: well-developed EENT: ATNC, PERRL, mucous membranes dry Neck: no JVD, no carotid bruit Respiratory: Present: Clear to Ascultation. Absent: Rales, Ronchi Cardiology: regular, S1S2 Gastrointestinal: normoactive bowel sounds, no tenderness, no distended Integumentary: no rash, warm and dry Neurologic: no focal deficit, no asterixis Musculoskeletal: other (no edema in BLE) Psychiatric: cooperative - Lab 05/15/17 03:45 05/15/17 03:45 Most recent lab results Calcium 9.5 mg/dL (8.4-10.2) 05/15/17 03:45
--- NOTE | 2017-05-15 12:11 | Progress Note ---
Assessment and Plan Assessment: 1) Sepsis with septic shock: still pressors ??, leukocytosis improving. Etiology most likely pneumonia. 2) Bilateral pneumonia: -tracheal asp + MRSA -CRP very high at 44 3) Resp failure - better 4) HCV / Ascitis 5) ESRD on HD 6) CAD 7) CHF with exacerbation 8) LALO - worsening on HD now 9) Recurrent falls Plan: -taper down levophed to keep MAP at 65, currenlty MAP 90 and she is on 8 mcg/ min -continue zyvox day 5 of 7 -check cortisol -repeat CRP -contact isolation -evaluation and precautions for recurrent falls. Thank you Dr Gutierrez for your consultation, will follow up with you. Tamera Butler MD Infectious Diseases Specialist [facility] ([facility]) M [phone] O [phone] Subjective Date of service: 05/15/17 Principal diagnosis: MRSA pneumonia, shock,sepsis,ESRD Interval history: Alert talkative. Still on levophed at 7 mcg/min, no fever. Microbiology: Blood cultures: 05/09 ngtd Urine cultures: Respiratory cultures: TA 05/09 MRSA Current Antimicrobials: zyvox 05/12 Previous Antimicrobials: Ceftriaxone Objective - Exam Narrative Exam: General appearance: alert talkative in NAD Eyes: anicteric sclerae, moist conjunctivae; no lid-lag; PERRLA HENT: Atraumatic Neck: Trachea midline; supple, no thyromegaly or lymphadenopathy Lungs: ector rhonchi CV: rrr Abdomen: Soft, non-tender Extremities: No peripheral edema or extremity lymphadenopathy Skin: +multiple ecchymoses left forehead Psych: somnolent confused Neuro: somnolent Moving all extermities Lines: No CVL / PICC - Constitutional Vitals: Vital Signs Temp Pulse Resp BP Pulse Ox 98.5 F 107 H 34 H 89/53 98 05/15/17 08:00 05/15/17 09:00 05/15/17 09:00 05/15/17 09:00 05/15/17 09:00 Temperature -Last 24 Hours Temperature 98.5 F Temperature 98.1 F Temperature 98.4 F Temperature 98.8 F Temperature 98.6 F - Labs CBC & Chem 7: 05/15/17 03:45 05/15/17 03:45 Labs: Abnormal lab results 05/13/17 05/14/17 05/14/17 Range/Units 18:01 11:26 16:42 WBC (4.5-11.0) K/mm3 RBC (3.65-5.03) M/mm3 MCV (79-97) fl MCH (28-32) pg RDW (13.2-15.2) % Lymph % (Auto) (13.4-35.0) % [place] % (Auto) (0.0-7.3) % [place] # (0.0-0.8) K/mm3 Seg Neutrophils % (40.0-70.0) % Seg Neutrophils # (1.8-7.7) K/mm3 Sodium (137-145) mmol/L Chloride (98-107) mmol/L BUN (7-17) mg/dL Creatinine (0.7-1.2) mg/dL Glucose (65-100) mg/dL POC Glucose 216 H 182 H 310 H (70-105) AST (5-40) units/L ALT (7-56) units/L Alkaline Phosphatase (35-129) units/L Albumin (3.9-5) g/dL 05/14/17 05/15/17 05/15/17 Range/Units 23:00 03:45 03:45 WBC 18.3 H (4.5-11.0) K/mm3 RBC 3.42 L (3.65-5.03) M/mm3 MCV 105 H (79-97) fl MCH 34 H (28-32) pg RDW 23.0 H (13.2-15.2) % Lymph % (Auto) 10.4 L (13.4-35.0) % [place] % (Auto) 7.7 H (0.0-7.3) % [place] # 1.4 H (0.0-0.8) K/mm3 Seg Neutrophils % 79.5 H (40.0-70.0) % Seg Neutrophils # 14.6 H (1.8-7.7) K/mm3 Sodium 132 L (137-145) mmol/L Chloride 88.4 L (98-107) mmol/L BUN 29 H (7-17) mg/dL Creatinine 2.8 H (0.7-1.2) mg/dL Glucose 310 H (65-100) mg/dL POC Glucose 264 H (70-105) AST 54 H (5-40) units/L ALT 111 H (7-56) units/L Alkaline Phosphatase 318 H (35-129) units/L Albumin 3.7 L (3.9-5) g/dL 12/16/17 Range/Units 07:36 WBC (4.5-11.0) K/mm3 RBC (3.65-5.03) M/mm3 MCV (79-97) fl MCH (28-32) pg RDW (13.2-15.2) % Lymph % (Auto) (13.4-35.0) % [place] % (Auto) (0.0-7.3) % [place] # (0.0-0.8) K/mm3 Seg Neutrophils % (40.0-70.0) % Seg Neutrophils # (1.8-7.7) K/mm3 Sodium (137-145) mmol/L Chloride (98-107) mmol/L BUN (7-17) mg/dL Creatinine (0.7-1.2) mg/dL Glucose (65-100) mg/dL POC Glucose 253 H (70-105) AST (5-40) units/L ALT (7-56) units/L Alkaline Phosphatase (35-129) units/L Albumin (3.9-5) g/dL
[2017-05-15] MEDS: NOVOLOG SUB-Q SCH ×2 (15:02→22:26)
--- NOTE | 2017-05-15 15:04 | Progress Note ---
Assessment and Plan Assessment: Acute on chronic systolic heart failure [facility] - echo 04/17/2017 showed EF 40% Elevated troponins - ECG with NAF; pt with no c/o chest pain; currently nonspecific in setting of acutely decompensated HF, sepsis, and ESRD Acute respiratory failure - s/p extubation AMS - head CT with NAF MRSA pneumonia/atelectasis / sepsis ESRD on HD - TTS HD schedule CAD, UT with PCI of mid LAD and mid circ at [facility] (01/20/2016), NSTEMI with subacute left circ and LAD stent thrombosis s/p stent of left circ and balloon angioplasty alone of LAD (02/22/2016) DM H/o HTN - with hypotension since admission HLP Anemia Hepatitis C Moderate to severe TR Pulmonary HTN - RVSP 57.9mmHg Plan: Volume optimization per nephrology. Wean pressors as tolerated. No indication for repeat echo given recent echo 04/17/2017. No BB, ACEI/ARB, and/or anti-hypertensives at this time given persistent hypotension since admission. Cardiac status is stable,continue supportive rx. Subjective Date of service: 05/15/17 Principal diagnosis: MRSA pneumonia, shock,sepsis,ESRD Interval history: [place] comfortable,no acute distress. Objective Vital Signs Temp Pulse Pulse Pulse Pulse Pulse Pulse 05/15/17 12:00 98.8 F 05/15/17 09:00 107 H 05/15/17 08:45 108 H 05/15/17 08:30 107 H 05/15/17 08:15 106 H 05/15/17 08:01 106 H 05/15/17 08:00 98.5 F 05/15/17 07:45 106 H 05/15/17 07:30 105 H 05/15/17 07:15 104 H 05/15/17 07:00 105 H 05/15/17 06:45 104 H 05/15/17 06:30 98 H 05/15/17 06:15 95 H 05/15/17 06:00 96 H 05/15/17 05:45 96 H 05/15/17 05:30 95 H 05/15/17 05:15 96 H 05/15/17 05:00 95 H 05/15/17 04:45 96 H 05/15/17 04:30 104 H 05/15/17 04:22 98.1 F 12/16/17 04:15 94 H 16/17 04:00 92 H 16/17 03:45 91 H 16/17 03:30 94 H 16/17 03:15 104 H 16/17 03:00 91 H 16/17 02:45 90 1617 02:30 89 16/17 02:15 102 H 16/17 02:00 100 H 1617 01:55 104 H 1617 01:45 103 H 16/17 01:39 102 H 16/17 01:30 103 H 16/17 01:15 101 H 16/17 01:00 103 H 1617 00:45 99 H 16/17 00:35 106 H 16/17 00:30 104 H 1617 00:15 104 H 16/17 00:00 106 H 91 H 91 H 91 H 91 H 17 23:45 108 H 1517 23:30 106 H 15/17 23:15 107 H 15/17 23:01 108 H 15/17 22:45 107 H 15/17 22:30 108 H 15/17 22:17 111 H 15/17 22:15 111 H 15/17 22:00 107 H 15/17 21:45 111 H 15/17 21:30 110 H 15/17 21:15 110 H 15/17 21:07 112 H 15/17 21:00 111 H 15/17 20:45 115 H 15/17 20:31 115 H 15/17 20:15 113 H 15/17 20:00 98.4 F 113 H 112 H 112 H 112 H 112 H 15/17 19:45 114 H 15/17 19:44 110 H 15/17 19:30 109 H 15/17 19:15 110 H 15/17 19:01 110 H 15/17 18:45 111 H 15/17 18:31 111 H 15/17 18:15 116 H 15/17 18:00 115 H 12/15/17 17:45 102 H 05/14/17 17:30 96 H 05/14/17 17:15 114 H 05/14/17 17:01 110 H 05/14/17 16:45 117 H 05/14/17 16:30 114 H 05/14/17 16:25 05/14/17 16:15 113 H 05/14/17 16:00 98.8 F 120 H 05/14/17 15:45 116 H 05/14/17 15:30 114 H 05/14/17 15:15 115 H 05/14/17 15:10 100 H Pulse Pulse Pulse Resp Resp BP Pulse Ox 05/15/17 12:00 05/15/17 09:00 34 H 89/53 98 05/15/17 08:45 18 94/66 97 05/15/17 08:30 21 94/66 84 05/15/17 08:15 34 H 103/62 05/15/17 08:01 30 H 105/40 96 05/15/17 08:00 05/15/17 07:45 19 110/66 97 05/15/17 07:30 22 101/57 95 05/15/17 07:15 28 H 101/62 96 05/15/17 07:00 28 H 105/61 96 05/15/17 06:45 26 H 106/65 96 05/15/17 06:30 24 98/62 05/15/17 06:15 23 105/67 97 05/15/17 06:00 26 H 104/68 05/15/17 05:45 22 113/65 96 05/15/17 05:30 25 H 113/66 05/15/17 05:15 24 104/65 97 05/15/17 05:00 26 H 106/54 98 05/15/17 04:45 24 107/62 98 05/15/17 04:30 28 H 114/60 98 05/15/17 04:22 05/15/17 04:15 28 H 105/59 99 05/15/17 04:00 26 H 108/60 05/15/17 03:45 26 H 104/61 05/15/17 03:30 25 H 100/62 05/15/17 03:15 27 H 110/69 99 05/15/17 03:00 25 H 101/63 05/15/17 02:45 23 98/55 05/15/17 02:30 28 H 99/57 99 05/15/17 02:15 27 H 101/62 05/15/17 02:00 23 98/57 05/15/17 01:55 24 05/15/17 01:45 27 H 100/60 05/15/17 01:39 24 05/15/17 01:30 25 H 97/57 05/15/17 01:15 25 H 93/56 05/15/17 01:00 27 H 96/59 05/15/17 00:45 28 H 93/56 97 05/15/17 00:35 18 98 05/15/17 00:30 20 103/60 97 05/15/17 00:15 22 98/57 98 05/15/17 00:00 91 H 91 H 91 H 21 102/61 98 05/14/17 23:45 22 98/56 05/14/17 23:30 28 H 99/59 05/14/17 23:15 24 85/49 99 05/14/17 23:01 26 H 97/58 98 05/14/17 22:45 25 H 106/63 99 05/14/17 22:30 25 H 112/65 99 05/14/17 22:17 21 117/71 98 05/14/17 22:15 28 H 117/71 05/14/17 22:00 19 107/62 97 05/14/17 21:45 18 109/68 98 05/14/17 21:30 21 110/66 05/14/17 21:15 22 102/55 82 L 05/14/17 21:07 20 05/14/17 21:00 20 103/63 96 05/14/17 20:45 20 117/65 97 05/14/17 20:31 19 109/67 95 05/14/17 20:15 24 115/67 96 05/14/17 20:00 112 H 112 H 112 H 25 H 116/69 98 05/14/17 19:45 21 108/70 97 05/14/17 19:44 20 05/14/17 19:30 20 109/67 05/14/17 19:15 23 106/63 05/14/17 19:01 20 85/35 95 05/14/17 18:45 26 H 98/63 97 05/14/17 18:31 25 H 98/63 99 05/14/17 18:15 19 98/63 100 05/14/17 18:00 19 101/64 96 05/14/17 17:45 25 H 99/56 97 05/14/17 17:30 22 77/46 05/14/17 17:15 17 75/42 05/14/17 17:01 16 61/35 05/14/17 16:45 19 94/51 05/14/17 16:30 17 119/50 95 05/14/17 16:25 95 05/14/17 16:15 19 106/61 05/14/17 16:00 38 H 111/63 79 L 05/14/17 15:45 38 H 95/54 83 L 05/14/17 15:30 19 111/66 100 05/14/17 15:15 16 103/61 05/14/17 15:10 26 H - Physical Examination General: No Apparent Distress HEENT: Positive: PERRL, Normocephaly, Mucus Membranes Moist Neck: Positive: neck supple, trachea midline Cardiac: Positive: Reg Rate and Rhythm Lungs: Positive: Decreased Breath Sounds Neuro: Positive: Grossly Intact Abdomen: Positive: Soft. Negative: Tender Skin: Positive: Clear. Negative: Rash, Wound Musculoskeletal: No Fluid Collection, No Pain, Normal Range of Motion Extremities: Absent: edema - Labs and Meds Cardiac Enzymes 05/15/17 Range/Units 03:45 AST 54 H (5-40) units/L CBC 05/15/17 Range/Units 03:45 WBC 18.3 H (4.5-11.0) K/mm3 RBC 3.42 L (3.65-5.03) M/mm3 Hgb 11.5 (10.1-14.3) gm/dl Hct 36.0 (30.3-42.9) % Plt Count 380 (140-440) K/mm3 Lymph # 1.9 (1.2-5.4) K/mm3 [place] # 1.4 H (0.0-0.8) K/mm3 Eos # 0.4 (0.0-0.4) K/mm3 Baso # 0.1 (0.0-0.1) K/mm3 Comprehensive Metabolic Panel 05/15/17 05/15/17 Range/Units 03:45 12:15 Sodium 132 L (137-145) mmol/L Potassium 3.6 (3.6-5.0) mmol/L Chloride 88.4 L (98-107) mmol/L Carbon Dioxide 26 (22-30) mmol/L BUN 29 H (7-17) mg/dL Creatinine 2.8 H (0.7-1.2) mg/dL Glucose 310 H 336 H (65-100) mg/dL Calcium 9.5 (8.4-10.2) mg/dL AST 54 H (5-40) units/L ALT 111 H (7-56) units/L Alkaline Phosphatase 318 H (35-129) units/L Total Protein 7.8 (6.3-8.2) g/dL Albumin 3.7 L (3.9-5) g/dL - Imaging and Cardiology EKG: report reviewed, image reviewed Cardiac cath: report reviewed (UT and PCI of mid LAD and mid circ on 01/20/2016; subacute left circ and LAD stent thrombosis s/p stent of left circ and balloon angioplasty alone of LAD (02/22/2016)) - EKG Sinus rhythms and dysrhythmias: sinus rhythm AV and intraventricular conduction: right bundle branch block (incomplete)
[2017-05-15] MEDS: ZYVOX PO SCH ×2 (15:11→22:28)
--- NOTE | 2017-05-15 15:24 | Progress Note ---
Assessment and Plan Imp: 1. HCAP, presumed MRSA 2. Sepsis w/ septic shock 3. ESRD 4. A/C respiratory failure, hypoxia 5. Ischemic cardiomyopathy/CAD 6. Pulm HTN 7. ? COPD Rec: 1. Cont. Zyvox 2. Wean pressors to keep MAP > 65; consider Midodrine 3. No empyema on CT chest 4. ST evaluation to r/o aspiration 5. DVT PPx 6. D/c smoking 7. Outpatient PFTs Plan of care reviewed w/ patient, she understands/agrees Subjective Date of service: 05/15/17 Principal diagnosis: MRSA pneumonia, shock,sepsis,ESRD Interval history: No events. On 5L NC. Awake, alert. SOB is better. Remains on Levophed ~ 9mcg for BP support. No new complaints. Active Medications Acetaminophen (Tylenol) 650 mg MO Q4H PRN PRN Reason: Pain, Mild (1-3) Albuterol (Proventil) 2.5 mg IH Q6HRT [facility] Last Admin: 05/15/17 10:57 Dose: 2.5 mg Aspirin (Baby Aspirin) 81 mg PO QDAY [facility] Last Admin: 05/15/17 09:57 Dose: 81 mg Atorvastatin Calcium (Lipitor) 40 mg PO DAILY [facility] Last Admin: 05/15/17 15:11 Dose: 40 mg Cinacalcet (Sensipar) 30 mg PO BID [facility] Last Admin: 05/15/17 09:57 Dose: 30 mg Cyclobenzaprine HCl (Flexeril) 10 mg PO TID PRN PRN Reason: Muscle Spasm Last Admin: 05/12/17 10:24 Dose: 10 mg Gabapentin (Neurontin) 300 mg PO Q8HR [facility] Last Admin: 05/15/17 15:11 Dose: 300 mg Heparin Sodium (Porcine) (Heparin) 5,000 unit SUB-Q Q12HR [facility] Last Admin: 05/15/17 09:56 Dose: 5,000 unit Hydrophilic Ointment (Vaseline Lip Therapy) 1 applic TP Q2HR PRN PRN Reason: Dry Lips Sodium Chloride (Nacl 0.9%) 100 mls @ 999 mls/hr IV GISSELL PRN PRN Reason: Hypotension Norepinephrine 8 mg/ Sodium (Chloride) 250 mls @ 3.75 mls/hr IV TITR TATIANA; 2 MCG /MIN PRN Reason: Protocol Last Admin: 05/14/17 12:14 Dose: 8 mcg/min, 15 mls/hr Sodium Chloride (Nacl 0.9%) 100 mls @ 999 mls/hr IV GISSELL PRN PRN Reason: Hypotension Insulin Aspart (Novolog) 0 units SUB-Q ACHS TATIANA PRN Reason: Protocol Last Admin: 05/15/17 15:02 Dose: 8 units Linezolid (Zyvox) 600 mg PO BID [facility] Last Admin: 05/15/17 15:11 Dose: 600 mg Multi-Ingred Cream/Lotion/Oil/Oint (Artificial Tears Ophth Oint) 1 applic OU Q4HR PRN PRN Reason: Dry Eye(s) Nicotine (Habitrol) 21 mg TD QDAY [facility] Last Admin: 05/15/17 09:57 Dose: 21 mg Ondansetron HCl (Zofran) 4 mg IV Q8H PRN PRN Reason: Nausea And Vomiting Sertraline HCl (Zoloft) 50 mg PO QDAY [facility] Last Admin: 05/15/17 09:56 Dose: 50 mg Sevelamer Carbonate (Renvela) 800 mg PO TIDWM [facility] Last Admin: 05/15/17 09:56 Dose: 800 mg Trazodone HCl (Desyrel) 50 mg PO QHS [facility] Last Admin: 05/14/17 22:15 Dose: 50 mg Objective Vital Signs - 12hr 05/15/17 05/15/17 05/15/17 03:30 03:45 04:00 Temperature Pulse Rate 94 H 91 H 92 H Respiratory 25 H 26 H 26 H Rate Blood Pressure 100/62 104/61 108/60 O2 Sat by Pulse Oximetry 05/15/17 05/15/17 05/15/17 04:15 04:22 04:30 Temperature 98.1 F Pulse Rate 94 H 104 H Respiratory 28 H 28 H Rate Blood Pressure 105/59 114/60 O2 Sat by Pulse 99 98 Oximetry 05/15/17 05/15/17 05/15/17 04:45 05:00 05:15 Temperature Pulse Rate 96 H 95 H 96 H Respiratory 24 26 H 24 Rate Blood Pressure 107/62 106/54 104/65 O2 Sat by Pulse 98 98 97 Oximetry 05/15/17 05/15/17 05/15/17 05:30 05:45 06:00 Temperature Pulse Rate 95 H 96 H 96 H Respiratory 25 H 22 26 H Rate Blood Pressure 113/66 113/65 104/68 O2 Sat by Pulse 96 Oximetry 05/15/17 05/15/17 05/15/17 06:15 06:30 06:45 Temperature Pulse Rate 95 H 98 H 104 H Respiratory 23 24 26 H Rate Blood Pressure 105/67 98/62 106/65 O2 Sat by Pulse 97 96 Oximetry 05/15/17 05/15/17 05/15/17 07:00 07:15 07:30 Temperature Pulse Rate 105 H 104 H 105 H Respiratory 28 H 28 H 22 Rate Blood Pressure 105/61 101/62 101/57 O2 Sat by Pulse 96 96 95 Oximetry 05/15/17 05/15/17 05/15/17 07:45 08:00 08:01 Temperature 98.5 F Pulse Rate 106 H 106 H Respiratory 19 30 H Rate Blood Pressure 110/66 105/40 O2 Sat by Pulse 97 96 Oximetry 05/15/17 05/15/17 05/15/17 08:15 08:30 08:45 Temperature Pulse Rate 106 H 107 H 108 H Respiratory 34 H 21 18 Rate Blood Pressure 103/62 94/66 94/66 O2 Sat by Pulse 84 97 Oximetry 05/15/17 05/15/17 09:00 12:00 Temperature 98.8 F Pulse Rate 107 H Respiratory 34 H Rate Blood Pressure 89/53 O2 Sat by Pulse 98 Oximetry Constitutional: no acute distress, alert ENT: oropharynx moist Neck: supple Effort: normal Ascultation: Bilateral: clear Cardiovascular: regular rate and rhythm (no mrg) Gastrointestinal: normoactive bowel sounds, soft, non-tender Integumentary: other (Patsy left-sided face) Extremities: no cyanosis, no edema Neurologic: normal mental status, non-focal exam, pupils equal and round, CN II- XII normal, motor strength normal and Psychiatric: mood appropriate, affect normal CBC and BMP: 05/15/17 03:45 05/15/17 12:15 ABG, PT/INR, D-dimer: ABG POC ABG pH 7.450 (7.35-7.45) 05/12/17 13:10 POC ABG pCO2 36.7 (35-45) 05/12/17 13:10 POC ABG pO2 66 (80-105) L 05/12/17 13:10 POC ABG HCO3 25.5 05/12/17 13:10 POC ABG Total CO2 27 05/12/17 13:10 POC ABG O2 Sat 94 05/12/17 13:10 PT/INR, D-dimer PT 15.2 Sec. (12.2-14.9) H 05/08/17 21:25 INR 1.14 (0.87-1.13) H 05/08/17 21:25 Abnormal lab findings: Abnormal Labs 05/08/17 05/08/17 05/08/17 21:25 21:25 21:25 WBC RBC 2.55 L Hgb 8.9 L Hct 28.1 L MCV 111 H MCH 35 H RDW 25.4 H Lymph % (Auto) [place] % (Auto) Lymph # [place] # Baso # Seg Neutrophils % Seg Neuts % (Manual) 92.0 H Lymphocytes % (Manual) 6.0 L Nucleated RBC % Seg Neutrophils # Seg Neutrophils # Man 9.3 H Lymphocytes # (Manual) 0.6 L Monocytes # (Manual) PT 15.2 H INR 1.14 H POC ABG pH POC ABG pCO2 POC ABG pO2 Sodium Potassium Chloride Carbon Dioxide BUN Creatinine Glucose POC Glucose Lactic Acid 2.50 H* Calcium AST ALT Alkaline Phosphatase Total Creatine Kinase CK-MB (CK-2) Rel Index Troponin T C-Reactive Protein Total Protein Albumin LDL Cholesterol Direct HDL Cholesterol Urine WBC (Auto) Salicylates Hepatitis C Antibody 05/08/17 05/08/17 05/08/17 21:35 22:04 22:42 WBC RBC Hgb Hct MCV MCH RDW Lymph % (Auto) [place] % (Auto) Lymph # [place] # Baso # Seg Neutrophils % Seg Neuts % (Manual) Lymphocytes % (Manual) Nucleated RBC % Seg Neutrophils # Seg Neutrophils # Man Lymphocytes # (Manual) Monocytes # (Manual) PT INR POC ABG pH 7.271 L POC ABG pCO2 56.5 H POC ABG pO2 30 L Sodium Potassium Chloride 107.8 H Carbon Dioxide BUN 22 H Creatinine 2.6 H Glucose 202 H POC Glucose Lactic Acid Calcium 7.3 L AST ALT Alkaline Phosphatase 258 H Total Creatine Kinase CK-MB (CK-2) Rel Index Troponin T C-Reactive Protein Total Protein 5.2 L Albumin 2.9 L LDL Cholesterol Direct HDL Cholesterol Urine WBC (Auto) Salicylates < 0.3 L Hepatitis C Antibody 05/08/17 05/09/17 05/09/17 Unknown 00:24 06:00 WBC RBC Hgb Hct MCV MCH RDW Lymph % (Auto) [place] % (Auto) Lymph # [place] # Baso # Seg Neutrophils % Seg Neuts % (Manual) Lymphocytes % (Manual) Nucleated RBC % Seg Neutrophils # Seg Neutrophils # Man Lymphocytes # (Manual) Monocytes # (Manual) PT INR POC ABG pH 7.283 L POC ABG pCO2 49.9 H POC ABG pO2 249 H Sodium Potassium Chloride Carbon Dioxide BUN Creatinine Glucose POC Glucose Lactic Acid Calcium AST ALT Alkaline Phosphatase Total Creatine Kinase 19 L CK-MB (CK-2) Rel Index 11.0 H Troponin T 0.612 H* C-Reactive Protein Total Protein Albumin LDL Cholesterol Direct 21 L HDL Cholesterol 27 L Urine WBC (Auto) 16.0 H Salicylates Hepatitis C Antibody 05/09/17 05/09/17 05/09/17 06:00 06:00 08:52 WBC 11.7 H RBC 2.67 L Hgb 9.3 L Hct 30.0 L MCV 112 H MCH 35 H RDW 24.4 H Lymph % (Auto) [place] % (Auto) Lymph # [place] # Baso # Seg Neutrophils % Seg Neuts % (Manual) Lymphocytes % (Manual) Nucleated RBC % Seg Neutrophils # Seg Neutrophils # Man Lymphocytes # (Manual) Monocytes # (Manual) PT INR POC ABG pH 7.323 L POC ABG pCO2 POC ABG pO2 143 H Sodium Potassium Chloride Carbon Dioxide BUN 24 H Creatinine 2.9 H Glucose 172 H POC Glucose Lactic Acid Calcium 7.7 L AST ALT Alkaline Phosphatase Total Creatine Kinase CK-MB (CK-2) Rel Index Troponin T C-Reactive Protein Total Protein Albumin LDL Cholesterol Direct HDL Cholesterol Urine WBC (Auto) Salicylates Hepatitis C Antibody 05/09/17 05/09/17 05/11/17 14:00 17:00 06:09 WBC 11.4 H RBC 2.66 L Hgb 9.1 L Hct 29.3 L MCV 110 H MCH 34 H RDW 23.1 H Lymph % (Auto) 4.2 L [place] % (Auto) 12.7 H Lymph # 0.5 L [place] # 1.4 H Baso # Seg Neutrophils % 82.5 H Seg Neuts % (Manual) Lymphocytes % (Manual) Nucleated RBC % Seg Neutrophils # 9.4 H Seg Neutrophils # Man Lymphocytes # (Manual) Monocytes # (Manual) PT INR POC ABG pH POC ABG pCO2 POC ABG pO2 Sodium Potassium Chloride Carbon Dioxide BUN Creatinine Glucose POC Glucose Lactic Acid Calcium AST ALT Alkaline Phosphatase Total Creatine Kinase 24 L CK-MB (CK-2) Rel Index 9.1 H Troponin T 0.654 H* C-Reactive Protein Total Protein Albumin LDL Cholesterol Direct HDL Cholesterol Urine WBC (Auto) Salicylates Hepatitis C Antibody Reactive A 05/11/17 05/11/17 05/11/17 06:09 08:20 11:34 WBC RBC Hgb Hct MCV MCH RDW Lymph % (Auto) [place] % (Auto) Lymph # [place] # Baso # Seg Neutrophils % Seg Neuts % (Manual) Lymphocytes % (Manual) Nucleated RBC % Seg Neutrophils # Seg Neutrophils # Man Lymphocytes # (Manual) Monocytes # (Manual) PT INR POC ABG pH POC ABG pCO2 POC ABG pO2 Sodium Potassium Chloride 95.6 L Carbon Dioxide 20 L BUN 24 H Creatinine 3.4 H Glucose 134 H POC Glucose 154 H 149 H Lactic Acid Calcium AST ALT Alkaline Phosphatase Total Creatine Kinase CK-MB (CK-2) Rel Index Troponin T C-Reactive Protein Total Protein Albumin LDL Cholesterol Direct HDL Cholesterol Urine WBC (Auto) Salicylates Hepatitis C Antibody 05/11/17 05/11/17 05/11/17 15:30 16:27 21:58 WBC RBC Hgb Hct MCV MCH RDW Lymph % (Auto) [place] % (Auto) Lymph # [place] # Baso # Seg Neutrophils % Seg Neuts % (Manual) Lymphocytes % (Manual) Nucleated RBC % Seg Neutrophils # Seg Neutrophils # Man Lymphocytes # (Manual) Monocytes # (Manual) PT INR POC ABG pH POC ABG pCO2 POC ABG pO2 Sodium Potassium Chloride Carbon Dioxide BUN Creatinine Glucose POC Glucose 163 H 199 H Lactic Acid Calcium AST ALT Alkaline Phosphatase Total Creatine Kinase CK-MB (CK-2) Rel Index Troponin T C-Reactive Protein 44.70 H Total Protein Albumin LDL Cholesterol Direct HDL Cholesterol Urine WBC (Auto) Salicylates Hepatitis C Antibody 05/12/17 05/12/17 05/12/17 08:42 13:10 14:10 WBC RBC Hgb Hct MCV MCH RDW Lymph % (Auto) [place] % (Auto) Lymph # [place] # Baso # Seg Neutrophils % Seg Neuts % (Manual) Lymphocytes % (Manual) Nucleated RBC % Seg Neutrophils # Seg Neutrophils # Man Lymphocytes # (Manual) Monocytes # (Manual) PT INR POC ABG pH POC ABG pCO2 POC ABG pO2 66 L Sodium Potassium Chloride Carbon Dioxide BUN Creatinine Glucose POC Glucose 190 H 162 H Lactic Acid Calcium AST ALT Alkaline Phosphatase Total Creatine Kinase CK-MB (CK-2) Rel Index Troponin T C-Reactive Protein Total Protein Albumin LDL Cholesterol Direct HDL Cholesterol Urine WBC (Auto) Salicylates Hepatitis C Antibody 05/12/17 05/12/17 05/12/17 15:46 16:05 21:42 WBC RBC Hgb Hct MCV MCH RDW Lymph % (Auto) [place] % (Auto) Lymph # [place] # Baso # Seg Neutrophils % Seg Neuts % (Manual) Lymphocytes % (Manual) Nucleated RBC % Seg Neutrophils # Seg Neutrophils # Man Lymphocytes # (Manual) Monocytes # (Manual) PT INR POC ABG pH POC ABG pCO2 POC ABG pO2 Sodium Potassium Chloride Carbon Dioxide BUN Creatinine Glucose POC Glucose 153 H 153 H Lactic Acid 2.60 H* Calcium AST ALT Alkaline Phosphatase Total Creatine Kinase CK-MB (CK-2) Rel Index Troponin T C-Reactive Protein Total Protein Albumin LDL Cholesterol Direct HDL Cholesterol Urine WBC (Auto) Salicylates Hepatitis C Antibody 05/13/17 05/13/17 05/13/17 05:12 05:30 05:30 WBC 22.0 H RBC 3.02 L Hgb 9.9 L Hct MCV 105 H MCH 33 H RDW 22.9 H Lymph % (Auto) [place] % (Auto) Lymph # [place] # Baso # Seg Neutrophils % Seg Neuts % (Manual) 89.0 H Lymphocytes % (Manual) 6.0 L Nucleated RBC % 1.0 H Seg Neutrophils # Seg Neutrophils # Man 19.6 H Lymphocytes # (Manual) Monocytes # (Manual) 0.9 H PT INR POC ABG pH POC ABG pCO2 POC ABG pO2 Sodium Potassium Chloride 90.8 L Carbon Dioxide 21 L BUN 28 H Creatinine 3.1 H Glucose 172 H POC Glucose 182 H Lactic Acid Calcium AST ALT Alkaline Phosphatase Total Creatine Kinase CK-MB (CK-2) Rel Index Troponin T C-Reactive Protein Total Protein Albumin LDL Cholesterol Direct HDL Cholesterol Urine WBC (Auto) Salicylates Hepatitis C Antibody 05/13/17 05/13/17 05/13/17 11:52 18:01 23:31 WBC RBC Hgb Hct MCV MCH RDW Lymph % (Auto) [place] % (Auto) Lymph # [place] # Baso # Seg Neutrophils % Seg Neuts % (Manual) Lymphocytes % (Manual) Nucleated RBC % Seg Neutrophils # Seg Neutrophils # Man Lymphocytes # (Manual) Monocytes # (Manual) PT INR POC ABG pH POC ABG pCO2 POC ABG pO2 Sodium Potassium Chloride Carbon Dioxide BUN Creatinine Glucose POC Glucose 185 H 216 H 281 H Lactic Acid Calcium AST ALT Alkaline Phosphatase Total Creatine Kinase CK-MB (CK-2) Rel Index Troponin T C-Reactive Protein Total Protein Albumin LDL Cholesterol Direct HDL Cholesterol Urine WBC (Auto) Salicylates Hepatitis C Antibody 05/14/17 05/14/17 05/14/17 05:43 06:10 06:10 WBC 19.6 H RBC 3.61 L Hgb Hct MCV 104 H MCH 34 H RDW 23.4 H Lymph % (Auto) 8.6 L [place] % (Auto) Lymph # [place] # 1.3 H Baso # 0.2 H Seg Neutrophils % 82.5 H Seg Neuts % (Manual) Lymphocytes % (Manual) Nucleated RBC % Seg Neutrophils # 16.2 H Seg Neutrophils # Man Lymphocytes # (Manual) Monocytes # (Manual) PT INR POC ABG pH POC ABG pCO2 POC ABG pO2 Sodium Potassium 3.4 L Chloride 89.1 L Carbon Dioxide BUN 32 H Creatinine 3.0 H Glucose 224 H POC Glucose 215 H Lactic Acid Calcium AST 85 H ALT 162 H Alkaline Phosphatase 347 H Total Creatine Kinase CK-MB (CK-2) Rel Index Troponin T C-Reactive Protein Total Protein 8.5 H Albumin LDL Cholesterol Direct HDL Cholesterol Urine WBC (Auto) Salicylates Hepatitis C Antibody 05/14/17 05/14/17 05/14/17 08:32 11:26 16:42 WBC RBC Hgb Hct MCV MCH RDW Lymph % (Auto) [place] % (Auto) Lymph # [place] # Baso # Seg Neutrophils % Seg Neuts % (Manual) Lymphocytes % (Manual) Nucleated RBC % Seg Neutrophils # Seg Neutrophils # Man Lymphocytes # (Manual) Monocytes # (Manual) PT INR POC ABG pH POC ABG pCO2 POC ABG pO2 Sodium Potassium Chloride Carbon Dioxide BUN Creatinine Glucose POC Glucose 204 H 182 H 310 H Lactic Acid Calcium AST ALT Alkaline Phosphatase Total Creatine Kinase CK-MB (CK-2) Rel Index Troponin T C-Reactive Protein Total Protein Albumin LDL Cholesterol Direct HDL Cholesterol Urine WBC (Auto) Salicylates Hepatitis C Antibody 05/14/17 05/15/17 05/15/17 23:00 03:45 03:45 WBC 18.3 H RBC 3.42 L Hgb Hct MCV 105 H MCH 34 H RDW 23.0 H Lymph % (Auto) 10.4 L [place] % (Auto) 7.7 H Lymph # [place] # 1.4 H Baso # Seg Neutrophils % 79.5 H Seg Neuts % (Manual) Lymphocytes % (Manual) Nucleated RBC % Seg Neutrophils # 14.6 H Seg Neutrophils # Man Lymphocytes # (Manual) Monocytes # (Manual) PT INR POC ABG pH POC ABG pCO2 POC ABG pO2 Sodium 132 L Potassium Chloride 88.4 L Carbon Dioxide BUN 29 H Creatinine 2.8 H Glucose 310 H POC Glucose 264 H Lactic Acid Calcium AST 54 H ALT 111 H Alkaline Phosphatase 318 H Total Creatine Kinase CK-MB (CK-2) Rel Index Troponin T C-Reactive Protein Total Protein Albumin 3.7 L LDL Cholesterol Direct HDL Cholesterol Urine WBC (Auto) Salicylates Hepatitis C Antibody 05/15/17 05/15/17 05/15/17 07:36 12:14 12:15 WBC RBC Hgb Hct MCV MCH RDW Lymph % (Auto) [place] % (Auto) Lymph # [place] # Baso # Seg Neutrophils % Seg Neuts % (Manual) Lymphocytes % (Manual) Nucleated RBC % Seg Neutrophils # Seg Neutrophils # Man Lymphocytes # (Manual) Monocytes # (Manual) PT INR POC ABG pH POC ABG pCO2 POC ABG pO2 Sodium Potassium Chloride Carbon Dioxide BUN Creatinine Glucose POC Glucose 253 H > 500 H Lactic Acid Calcium AST ALT Alkaline Phosphatase Total Creatine Kinase CK-MB (CK-2) Rel Index Troponin T C-Reactive Protein 14.70 H Total Protein Albumin LDL Cholesterol Direct HDL Cholesterol Urine WBC (Auto) Salicylates Hepatitis C Antibody 05/15/17 12:15 WBC RBC Hgb Hct MCV MCH RDW Lymph % (Auto) [place] % (Auto) Lymph # [place] # Baso # Seg Neutrophils % Seg Neuts % (Manual) Lymphocytes % (Manual) Nucleated RBC % Seg Neutrophils # Seg Neutrophils # Man Lymphocytes # (Manual) Monocytes # (Manual) PT INR POC ABG pH POC ABG pCO2 POC ABG pO2 Sodium Potassium Chloride Carbon Dioxide BUN Creatinine Glucose 336 H POC Glucose Lactic Acid Calcium AST ALT Alkaline Phosphatase Total Creatine Kinase CK-MB (CK-2) Rel Index Troponin T C-Reactive Protein Total Protein Albumin LDL Cholesterol Direct HDL Cholesterol Urine WBC (Auto) Salicylates Hepatitis C Antibody Chest x-ray: report reviewed, image reviewed CT scan - chest: report reviewed, image reviewed
--- NOTE | 2017-05-15 16:22 | Progress Note ---
Assessment and Plan Assessment and plan: --Uncontrolled blood sugars; Accu-Chek sliding scale coverage ADA diet, had long -acting 7030 insulin Started low dose and increase as needed, check hemoglobin A1c --Sepsis/possible septic shock; on Levophed , titrate systolic BP >100, map > 65 --Acute on chronic respiratory failure; secondary to fluid overload/MRSA pneumonia Neurologist and he improved, oxygen, BiPAP as needed, dialysis per schedule, pulmonary following --Metabolic encephalopathy at the time of admission; intubated to protect the airway s/p extubation, continue oxygen titrate O2 sats to more than 90% and supportive care --Poor oral nutrition ; encourage To increase oral nutrition. --Positive cardiac enzymes; probably nonspecific secondary to end-stage renal disease, chest pain --Coronary artery disease s/p PCI : Continue current cardiac medications, cardio following --Cardiomyopathy ejection fraction of 40% 04/2016 --End-stage renal disease on hemodialysis, HD per schedule --Hypertension; hold antihypertensives, blood pressure is in the lower range --Dyslipidemia; and new lipid-lowering medications --DVT prophylaxis; heparin renal dose Cardiology, pulmonary, nephrology, ID following Critical care time 31 minutes History Interval history: Patient seen and examined this morning medical records reviewed And feels slightly better more alert and awake, remains on levo fed patient ate very little amount of breakfast Sugars are uncontrolled Hospitalist Physical - Constitutional Vitals: Temp Pulse Resp BP Pulse Ox 97.1 F L 107 H 34 H 89/53 98 05/15/17 16:00 05/15/17 09:00 05/15/17 09:00 05/15/17 09:00 05/15/17 09:00 General appearance: Present: no acute distress, other (more alert awake oriented ) - EENT Eyes: Present: PERRL, EOM intact - Neck Neck: Present: supple, normal ROM - Respiratory Respiratory effort: normal Respiratory: bilateral: diminished, rhonchi, negative: rales, wheezing - Cardiovascular Rhythm: regular Heart Sounds: Present: S1 & S2 - Extremities Extremities: no ischemia, No edema - Abdominal General gastrointestinal: soft, non-tender, non-distended, normal bowel sounds - Integumentary Integumentary: Present: clear, warm - Psychiatric Psychiatric: appropriate mood/affect, cooperative - Neurologic Neurologic: CNII-XII intact, moves all extremities Results - Labs CBC & Chem 7: 05/15/17 03:45 05/15/17 12:15 Labs: Laboratory Last Values WBC 18.3 K/mm3 (4.5-11.0) H 05/15/17 03:45 RBC 3.42 M/mm3 (3.65-5.03) L 05/15/17 03:45 Hgb 11.5 gm/dl (10.1-14.3) 05/15/17 03:45 Hct 36.0 % (30.3-42.9) 05/15/17 03:45 MCV 105 fl (79-97) H 05/15/17 03:45 MCH 34 pg (28-32) H 05/15/17 03:45 MCHC 32 % (30-34) 05/15/17 03:45 RDW 23.0 % (13.2-15.2) H 05/15/17 03:45 Plt Count 380 K/mm3 (140-440) 05/15/17 03:45 Lymph % (Auto) 10.4 % (13.4-35.0) L 05/15/17 03:45 [place] % (Auto) 7.7 % (0.0-7.3) H 05/15/17 03:45 Eos % (Auto) 1.9 % (0.0-4.3) 05/15/17 03:45 Baso % (Auto) 0.5 % (0.0-1.8) 05/15/17 03:45 Lymph # 1.9 K/mm3 (1.2-5.4) 05/15/17 03:45 [place] # 1.4 K/mm3 (0.0-0.8) H 05/15/17 03:45 Eos # 0.4 K/mm3 (0.0-0.4) 05/15/17 03:45 Baso # 0.1 K/mm3 (0.0-0.1) 05/15/17 03:45 Add Manual Diff Complete 05/13/17 05:30 Total Counted 100 05/13/17 05:30 Seg Neutrophils % 79.5 % (40.0-70.0) H 05/15/17 03:45 Seg Neuts % (Manual) 89.0 % (40.0-70.0) H 05/13/17 05:30 Band Neutrophils % 0 % 05/13/17 05:30 Lymphocytes % (Manual) 6.0 % (13.4-35.0) L 05/13/17 05:30 Reactive Lymphs % (Man) 0 % 05/13/17 05:30 Monocytes % (Manual) 4.0 % (0.0-7.3) 05/13/17 05:30 Eosinophils % (Manual) 0 % (0.0-4.3) 05/13/17 05:30 Basophils % (Manual) 0 % (0.0-1.8) 05/13/17 05:30 Metamyelocytes % 1.0 % 05/13/17 05:30 Myelocytes % 0 % 05/13/17 05:30 Promyelocytes % 0 % 05/13/17 05:30 Blast Cells % 0 % 05/13/17 05:30 Nucleated RBC % 1.0 % (0.0-0.9) H 05/13/17 05:30 Seg Neutrophils # 14.6 K/mm3 (1.8-7.7) H 05/15/17 03:45 Seg Neutrophils # Man 19.6 K/mm3 (1.8-7.7) H 05/13/17 05:30 Band Neutrophils # 0.0 K/mm3 05/13/17 05:30 Lymphocytes # (Manual) 1.3 K/mm3 (1.2-5.4) 05/13/17 05:30 Abs React Lymphs (Man) 0.0 K/mm3 05/13/17 05:30 Monocytes # (Manual) 0.9 K/mm3 (0.0-0.8) H 05/13/17 05:30 Eosinophils # (Manual) 0.0 K/mm3 (0.0-0.4) 05/13/17 05:30 Basophils # (Manual) 0.0 K/mm3 (0.0-0.1) 05/13/17 05:30 Metamyelocytes # 0.2 K/mm3 05/13/17 05:30 Myelocytes # 0.0 K/mm3 05/13/17 05:30 Promyelocytes # 0.0 K/mm3 05/13/17 05:30 Blast Cells # 0.0 K/mm3 05/13/17 05:30 WBC Morphology Not Reportable 05/13/17 05:30 Hypersegmented Neuts Not Reportable 05/13/17 05:30 Hyposegmented Neuts Not Reportable 05/13/17 05:30 Hypogranular Neuts Not Reportable 05/13/17 05:30 Smudge Cells Not Reportable 05/13/17 05:30 Toxic Granulation Not Reportable 05/13/17 05:30 Toxic Vacuolation Not Reportable 05/13/17 05:30 Dohle Bodies Not Reportable 05/13/17 05:30 Pelger-Huet Anomaly Not Reportable 05/13/17 05:30 Anthony Rods Not Reportable 05/13/17 05:30 Platelet Estimate Appears normal 05/13/17 05:30 Clumped Platelets Not Reportable 05/13/17 05:30 Plt Clumps, EDTA Not Reportable 05/13/17 05:30 Large Platelets Not Reportable 05/13/17 05:30 Giant Platelets Not Reportable 05/13/17 05:30 Platelet Satelliting Not Reportable 05/13/17 05:30 Plt Morphology Comment Not Reportable 05/13/17 05:30 RBC Morphology Not Reportable 05/13/17 05:30 Dimorphic RBCs Not Reportable 05/13/17 05:30 Polychromasia 1+ 05/13/17 05:30 Hypochromasia Not Reportable 05/13/17 05:30 Poikilocytosis 1+ 05/13/17 05:30 Anisocytosis 1+ 05/13/17 05:30 Microcytosis Not Reportable 05/13/17 05:30 Macrocytosis Not Reportable 05/13/17 05:30 Spherocytes Not Reportable 05/13/17 05:30 Pappenheimer Bodies Not Reportable 05/13/17 05:30 Sickle Cells Not Reportable 05/13/17 05:30 Target Cells Few 05/13/17 05:30 Tear Drop Cells 1+ 05/13/17 05:30 Ovalocytes 1+ 05/13/17 05:30 Helmet Cells Not Reportable 05/13/17 05:30 [place] Bodies Not Reportable 05/13/17 05:30 [place] Rings Not Reportable 05/13/17 05:30 [place] Cells Not Reportable 05/13/17 05:30 Bite Cells Not Reportable 05/13/17 05:30 Crenated Cell Not Reportable 05/13/17 05:30 Elliptocytes Few 05/13/17 05:30 Acanthocytes (Spur) Not Reportable 05/13/17 05:30 Rouleaux Not Reportable 05/13/17 05:30 Hemoglobin C Crystals Not Reportable 05/13/17 05:30 Schistocytes Not Reportable 05/13/17 05:30 Malaria parasites Not Reportable 05/13/17 05:30 Jose Bodies Not Reportable 05/13/17 05:30 Hem Pathologist Commnt No 05/13/17 05:30 PT 15.2 Sec. (12.2-14.9) H 05/08/17 21:25 INR 1.14 (0.87-1.13) H 05/08/17 21:25 POC ABG pH 7.450 (7.35-7.45) 05/12/17 13:10 POC ABG pCO2 36.7 (35-45) 05/12/17 13:10 POC ABG pO2 66 (80-105) L 05/12/17 13:10 POC ABG HCO3 25.5 05/12/17 13:10 POC ABG Total CO2 27 05/12/17 13:10 POC ABG O2 Sat 94 05/12/17 13:10 POC ABG Base Excess 2 05/12/17 13:10 FiO2 25 % 05/12/17 13:10 Sodium 132 mmol/L (137-145) L 05/15/17 03:45 Potassium 3.6 mmol/L (3.6-5.0) 05/15/17 03:45 Chloride 88.4 mmol/L (98-107) L 05/15/17 03:45 Carbon Dioxide 26 mmol/L (22-30) 05/15/17 03:45 Anion Gap 21 mmol/L 05/15/17 03:45 BUN 29 mg/dL (7-17) H 05/15/17 03:45 Creatinine 2.8 mg/dL (0.7-1.2) H 05/15/17 03:45 Estimated GFR 18 ml/min 05/15/17 03:45 BUN/Creatinine Ratio 10 % 05/15/17 03:45 Glucose 336 mg/dL (65-100) H 05/15/17 12:15 POC Glucose 288 (70-105) H 05/15/17 15:43 Lactic Acid 2.60 mmol/L (0.7-2.0) H* 05/12/17 16:05 Calcium 9.5 mg/dL (8.4-10.2) 05/15/17 03:45 Total Bilirubin 0.90 mg/dL (0.1-1.2) 05/15/17 03:45 AST 54 units/L (5-40) H 05/15/17 03:45 ALT 111 units/L (7-56) H 05/15/17 03:45 Alkaline Phosphatase 318 units/L (35-129) H 05/15/17 03:45 Total Creatine Kinase 24 units/L (30-135) L 05/09/17 14:00 CK-MB (CK-2) 2.2 ng/mL (0.0-4.0) 05/09/17 14:00 CK-MB (CK-2) Rel Index 9.1 (0-4) H 05/09/17 14:00 Troponin T 0.654 ng/mL (0.00-0.029) H* 05/09/17 14:00 C-Reactive Protein 14.70 mg/dL (0.00-1.30) H 05/15/17 12:15 Total Protein 7.8 g/dL (6.3-8.2) 05/15/17 03:45 Albumin 3.7 g/dL (3.9-5) L 05/15/17 03:45 Albumin/Globulin Ratio 0.9 % 05/15/17 03:45 Triglycerides 125 mg/dL (2-149) 05/09/17 06:00 Cholesterol 73 mg/dL (50-199) 05/09/17 06:00 LDL Cholesterol Direct 21 mg/dL (50-130) L 05/09/17 06:00 HDL Cholesterol 27 mg/dL (40-59) L 05/09/17 06:00 Cholesterol/HDL Ratio 2.70 % 05/09/17 06:00 Urine Color Yellow (Yellow) 05/08/17 Unknown Urine Turbidity Clear (Clear) 05/08/17 Unknown Urine pH 7.0 (5.0-7.0) 05/08/17 Unknown Ur Specific [place] 1.014 (1.003-1.030) 05/08/17 Unknown Urine Protein 100 mg/dl mg/dL (Negative) 05/08/17 Unknown Urine Glucose (UA) 150 mg/dL (Negative) 05/08/17 Unknown Urine Ketones Neg mg/dL (Negative) 05/08/17 Unknown Urine Blood Sm (Negative) 05/08/17 Unknown Urine Nitrite Neg (Negative) 05/08/17 Unknown Urine Bilirubin Neg (Negative) 05/08/17 Unknown Urine Urobilinogen < 2.0 mg/dL (<2.0) 05/08/17 Unknown Ur Leukocyte Esterase Tr (Negative) 05/08/17 Unknown Urine WBC (Auto) 16.0 /HPF (0.0-6.0) H 05/08/17 Unknown Urine RBC (Auto) 3.0 /HPF (0.0-6.0) 05/08/17 Unknown U Epithel Cells (Auto) < 1.0 /HPF (0-13.0) 05/08/17 Unknown Urine Bacteria (Auto) 1+ /HPF (Negative) 05/08/17 Unknown Salicylates < 0.3 mg/dL (2.8-20.0) L 05/08/17 21:35 Acetaminophen < 15.0 ug/mL (10.0-30.0) 05/08/17 21:35 Hepatitis A IgM Ab Non-reactive (NonReactive) 05/09/17 17:00 Hep Bs Antigen Non-reactive (Negative) 05/09/17 17:00 Hep B Core IgM Ab Non-reactive (NonReactive) 05/09/17 17:00 Hepatitis C Antibody Reactive (NonReactive) A 05/09/17 17:00
[2017-05-15] MEDS: LEVOPHED 8 MG in NACL 0.9% 250ML 242 ML IV SCH (19:26)
[2017-05-15] MEDS: ZOFRAN IV PRN (19:43)
[2017-05-15] MEDS: DESYREL PO SCH (22:27)
[2017-05-16] MEDS: PROVENTIL IH SCH ×4 (02:23→19:38)
[2017-05-16 04:09] LABS: Hematocrit 34.5 % (30.3-42.9); Hemoglobin 10.9 gm/dl (10.1-14.3); Mean Corpuscular HGB Conc 32 % (30-34); Mean Corpuscular Hemoglobin 33 pg (28-32); Mean Corpuscular Volume 106 fl (79-97); Platelet Count 322 K/mm3 (140-440); Red Blood Count 3.25 M/mm3 (3.65-5.03)
[2017-05-16 04:11] LABS: Red Cell Distribution Width 23.2 % (13.2-15.2)
[2017-05-16 04:25] LABS: Calcium 9.2 mg/dL (8.4-10.2)
[2017-05-16] MEDS: NEURONTIN PO SCH ×3 (05:12→22:36)
[2017-05-16] MEDS: LEVOPHED 8 MG in NACL 0.9% 250ML 242 ML IV SCH ×2 (05:13→11:39)
[2017-05-16 06:28] LABS: Band Neutrophils # (Manual) 2.8 K/mm3; Basophils % (Manual) 0 % (0.0-1.8); Eosinophils % (Manual) 0 % (0.0-4.3); Total Cells Counted 100
[2017-05-16 06:29] LABS: Anisocytosis 1+; Hypochromasia 1+; Ovalocytes Few; Stomatocytes Few; Tear Drop Cells Few
[2017-05-16] MEDS: NOVOLOG SUB-Q SCH ×5 (07:50→22:45)
--- NOTE | 2017-05-16 07:51 | Progress Note ---
Assessment and Plan Assessment and plan: --Severe Sepsis: Possible MRSA pneumonia,continue Zyvox, ID following -- septic shock; pressor dependent on Levophed , titrate systolic BP >100, map > 65 --Uncontrolled blood sugars; Accu-Chek sliding scale coverage ADA diet, had long -acting 7030 insulin Started low dose and increase as needed, check hemoglobin A1c --Acute on chronic respiratory failure; secondary to fluid overload/MRSA pneumonia oxygen, BiPAP as needed, dialysis per schedule, intubate as needed pulmonary following --Metabolic encephalopathy at the time of admission; intubated to protect the airway s/p extubation, continue oxygen titrate O2 sats to more than 90% and supportive care --Poor oral nutrition ; encourage To increase oral nutrition. Tube feeding per protocol as needed --Positive cardiac enzymes; probably nonspecific secondary to end-stage renal disease, chest pain --Coronary artery disease s/p PCI : Continue current cardiac medications, cardio following --Cardiomyopathy ejection fraction of 40% 04/2016 --End-stage renal disease on hemodialysis, HD per schedule --h/o Hypertension; hold antihypertensives, blood pressure is in the lower range --Dyslipidemia; on lipid-lowering medications --DVT prophylaxis; heparin renal dose Cardiology, pulmonary, nephrology, ID following Patient is critically ill, with very poor prognosis, tried to call next of kin the daughter to discuss patient's condition and poor prognosis and plan of care and CODE STATUS, unable to reach. Full CODE STATUS Critical care time 31 minutes History Interval history: Patient seen and examined medical records reviewed Patient looks critically ill, lethargic, minimally communicative Multiple ecchymotic patches probably sustained after a fall Hypotensive, pressor dependent Worsening leukocytosis MRSA pneumonia on Zyvox Vital signs reviewed Hospitalist Physical - Constitutional Vitals: Temp Pulse Resp BP Pulse Ox 98.4 F 98 H 27 H 92/51 93 05/16/17 04:00 05/16/17 07:30 05/16/17 07:30 05/16/17 07:30 05/16/17 05:30 General appearance: Present: mild distress, cachectic, other (Lethargic, noncommunicative) - EENT Eyes: Present: PERRL, EOM intact - Neck Neck: Present: supple, normal ROM - Respiratory Respiratory effort: normal Respiratory: bilateral: diminished, rhonchi, negative: rales, wheezing - Cardiovascular Rhythm: regular Heart Sounds: Present: S1 & S2 - Extremities Extremities: No edema, abnormal (multiple bruises and ecchymotic patches) - Abdominal General gastrointestinal: soft, non-tender, non-distended, normal bowel sounds - Integumentary Integumentary: Present: erythema (multiple bruises) - Psychiatric Psychiatric: other (lethergic) - Neurologic Neurologic: moves all extremities Results - Labs CBC & Chem 7: 05/16/17 04:00 05/16/17 04:00 Labs: Laboratory Last Values WBC 23.5 K/mm3 (4.5-11.0) H 05/16/17 04:00 RBC 3.25 M/mm3 (3.65-5.03) L 05/16/17 04:00 Hgb 10.9 gm/dl (10.1-14.3) 05/16/17 04:00 Hct 34.5 % (30.3-42.9) 05/16/17 04:00 MCV 106 fl (79-97) H 05/16/17 04:00 MCH 33 pg (28-32) H 05/16/17 04:00 MCHC 32 % (30-34) 05/16/17 04:00 RDW 23.2 % (13.2-15.2) H 05/16/17 04:00 Plt Count 322 K/mm3 (140-440) 05/16/17 04:00 Lymph % (Auto) 10.4 % (13.4-35.0) L 05/15/17 03:45 [place] % (Auto) 7.7 % (0.0-7.3) H 05/15/17 03:45 Eos % (Auto) 1.9 % (0.0-4.3) 05/15/17 03:45 Baso % (Auto) 0.5 % (0.0-1.8) 05/15/17 03:45 Lymph # 1.9 K/mm3 (1.2-5.4) 05/15/17 03:45 [place] # 1.4 K/mm3 (0.0-0.8) H 05/15/17 03:45 Eos # 0.4 K/mm3 (0.0-0.4) 05/15/17 03:45 Baso # 0.1 K/mm3 (0.0-0.1) 05/15/17 03:45 Add Manual Diff Complete 05/16/17 04:00 Total Counted 100 05/16/17 04:00 Seg Neutrophils % 79.5 % (40.0-70.0) H 05/15/17 03:45 Seg Neuts % (Manual) 65.0 % (40.0-70.0) 05/16/17 04:00 Band Neutrophils % 12.0 % 05/16/17 04:00 Lymphocytes % (Manual) 9.0 % (13.4-35.0) L 05/16/17 04:00 Reactive Lymphs % (Man) 0 % 05/16/17 04:00 Monocytes % (Manual) 14.0 % (0.0-7.3) H 05/16/17 04:00 Eosinophils % (Manual) 0 % (0.0-4.3) 05/16/17 04:00 Basophils % (Manual) 0 % (0.0-1.8) 05/16/17 04:00 Metamyelocytes % 0 % 05/16/17 04:00 Myelocytes % 0 % 05/16/17 04:00 Promyelocytes % 0 % 05/16/17 04:00 Blast Cells % 0 % 05/16/17 04:00 Nucleated RBC % Not Reportable 05/16/17 04:00 Seg Neutrophils # 14.6 K/mm3 (1.8-7.7) H 05/15/17 03:45 Seg Neutrophils # Man 15.3 K/mm3 (1.8-7.7) H 05/16/17 04:00 Band Neutrophils # 2.8 K/mm3 05/16/17 04:00 Lymphocytes # (Manual) 2.1 K/mm3 (1.2-5.4) 05/16/17 04:00 Abs React Lymphs (Man) 0.0 K/mm3 05/16/17 04:00 Monocytes # (Manual) 3.3 K/mm3 (0.0-0.8) H 05/16/17 04:00 Eosinophils # (Manual) 0.0 K/mm3 (0.0-0.4) 05/16/17 04:00 Basophils # (Manual) 0.0 K/mm3 (0.0-0.1) 05/16/17 04:00 Metamyelocytes # 0.0 K/mm3 05/16/17 04:00 Myelocytes # 0.0 K/mm3 05/16/17 04:00 Promyelocytes # 0.0 K/mm3 05/16/17 04:00 Blast Cells # 0.0 K/mm3 05/16/17 04:00 WBC Morphology Not Reportable 05/16/17 04:00 Hypersegmented Neuts Not Reportable 05/16/17 04:00 Hyposegmented Neuts Not Reportable 05/16/17 04:00 Hypogranular Neuts Not Reportable 05/16/17 04:00 Smudge Cells Not Reportable 05/16/17 04:00 Toxic Granulation Not Reportable 05/16/17 04:00 Toxic Vacuolation Not Reportable 05/16/17 04:00 Dohle Bodies Not Reportable 05/16/17 04:00 Pelger-Huet Anomaly Not Reportable 05/16/17 04:00 Anthony Rods Not Reportable 05/16/17 04:00 Platelet Estimate Appears normal 05/16/17 04:00 Clumped Platelets Not Reportable 05/16/17 04:00 Plt Clumps, EDTA Not Reportable 05/16/17 04:00 Large Platelets Not Reportable 05/16/17 04:00 Giant Platelets Not Reportable 05/16/17 04:00 Platelet Satelliting Not Reportable 05/16/17 04:00 Plt Morphology Comment Not Reportable 05/16/17 04:00 RBC Morphology Not Reportable 05/16/17 04:00 Dimorphic RBCs Not Reportable 05/16/17 04:00 Polychromasia Not Reportable 05/16/17 04:00 Hypochromasia 1+ 05/16/17 04:00 Poikilocytosis Not Reportable 05/16/17 04:00 Anisocytosis 1+ 05/16/17 04:00 Microcytosis Not Reportable 05/16/17 04:00 Macrocytosis Not Reportable 05/16/17 04:00 Spherocytes Not Reportable 05/16/17 04:00 Pappenheimer Bodies Not Reportable 05/16/17 04:00 Sickle Cells Not Reportable 05/16/17 04:00 Target Cells Not Reportable 05/16/17 04:00 Tear Drop Cells Few 05/16/17 04:00 Ovalocytes Few 05/16/17 04:00 Stomatocytes Few 05/16/17 04:00 Helmet Cells Not Reportable 05/16/17 04:00 [place] Bodies Not Reportable 05/16/17 04:00 [place] Rings Not Reportable 05/16/17 04:00 [place] Cells Not Reportable 05/16/17 04:00 Bite Cells Not Reportable 05/16/17 04:00 Crenated Cell Not Reportable 05/16/17 04:00 Elliptocytes Few 05/16/17 04:00 Acanthocytes (Spur) Not Reportable 05/16/17 04:00 Rouleaux Not Reportable 05/16/17 04:00 Hemoglobin C Crystals Not Reportable 05/16/17 04:00 Schistocytes Not Reportable 05/16/17 04:00 Malaria parasites Not Reportable 05/16/17 04:00 Jose Bodies Not Reportable 05/16/17 04:00 Hem Pathologist Commnt No 05/16/17 04:00 PT 15.2 Sec. (12.2-14.9) H 05/08/17 21:25 INR 1.14 (0.87-1.13) H 05/08/17 21:25 POC ABG pH 7.450 (7.35-7.45) 05/12/17 13:10 POC ABG pCO2 36.7 (35-45) 05/12/17 13:10 POC ABG pO2 66 (80-105) L 05/12/17 13:10 POC ABG HCO3 25.5 05/12/17 13:10 POC ABG Total CO2 27 05/12/17 13:10 POC ABG O2 Sat 94 05/12/17 13:10 POC ABG Base Excess 2 05/12/17 13:10 FiO2 25 % 05/12/17 13:10 Sodium 137 mmol/L (137-145) 05/16/17 04:00 Potassium 4.2 mmol/L (3.6-5.0) 05/16/17 04:00 Chloride 91.5 mmol/L (98-107) L 05/16/17 04:00 Carbon Dioxide 25 mmol/L (22-30) 05/16/17 04:00 Anion Gap 25 mmol/L 05/16/17 04:00 BUN 48 mg/dL (7-17) H 05/16/17 04:00 Creatinine 4.5 mg/dL (0.7-1.2) H D 05/16/17 04:00 Estimated GFR 10 ml/min 05/16/17 04:00 BUN/Creatinine Ratio 11 % 05/16/17 04:00 Glucose 97 mg/dL (65-100) 05/16/17 04:00 POC Glucose 243 (70-105) H 05/15/17 22:26 Hemoglobin A1c 5.5 % (4-6) 05/16/17 04:00 Lactic Acid 2.60 mmol/L (0.7-2.0) H* 05/12/17 16:05 Calcium 9.2 mg/dL (8.4-10.2) 05/16/17 04:00 Total Bilirubin 0.90 mg/dL (0.1-1.2) 05/15/17 03:45 AST 54 units/L (5-40) H 05/15/17 03:45 ALT 111 units/L (7-56) H 05/15/17 03:45 Alkaline Phosphatase 318 units/L (35-129) H 05/15/17 03:45 Total Creatine Kinase 24 units/L (30-135) L 05/09/17 14:00 CK-MB (CK-2) 2.2 ng/mL (0.0-4.0) 05/09/17 14:00 CK-MB (CK-2) Rel Index 9.1 (0-4) H 05/09/17 14:00 Troponin T 0.654 ng/mL (0.00-0.029) H* 05/09/17 14:00 C-Reactive Protein 14.70 mg/dL (0.00-1.30) H 05/15/17 12:15 Total Protein 7.8 g/dL (6.3-8.2) 05/15/17 03:45 Albumin 3.7 g/dL (3.9-5) L 05/15/17 03:45 Albumin/Globulin Ratio 0.9 % 05/15/17 03:45 Triglycerides 125 mg/dL (2-149) 05/09/17 06:00 Cholesterol 73 mg/dL (50-199) 05/09/17 06:00 LDL Cholesterol Direct 21 mg/dL (50-130) L 05/09/17 06:00 HDL Cholesterol 27 mg/dL (40-59) L 05/09/17 06:00 Cholesterol/HDL Ratio 2.70 % 05/09/17 06:00 Urine Color Yellow (Yellow) 05/08/17 Unknown Urine Turbidity Clear (Clear) 05/08/17 Unknown Urine pH 7.0 (5.0-7.0) 05/08/17 Unknown Ur Specific [place] 1.014 (1.003-1.030) 05/08/17 Unknown Urine Protein 100 mg/dl mg/dL (Negative) 05/08/17 Unknown Urine Glucose (UA) 150 mg/dL (Negative) 05/08/17 Unknown Urine Ketones Neg mg/dL (Negative) 05/08/17 Unknown Urine Blood Sm (Negative) 05/08/17 Unknown Urine Nitrite Neg (Negative) 05/08/17 Unknown Urine Bilirubin Neg (Negative) 05/08/17 Unknown Urine Urobilinogen < 2.0 mg/dL (<2.0) 05/08/17 Unknown Ur Leukocyte Esterase Tr (Negative) 05/08/17 Unknown Urine WBC (Auto) 16.0 /HPF (0.0-6.0) H 05/08/17 Unknown Urine RBC (Auto) 3.0 /HPF (0.0-6.0) 05/08/17 Unknown U Epithel Cells (Auto) < 1.0 /HPF (0-13.0) 05/08/17 Unknown Urine Bacteria (Auto) 1+ /HPF (Negative) 05/08/17 Unknown Salicylates < 0.3 mg/dL (2.8-20.0) L 05/08/17 21:35 Acetaminophen < 15.0 ug/mL (10.0-30.0) 05/08/17 21:35 Hepatitis A IgM Ab Non-reactive (NonReactive) 05/09/17 17:00 Hep Bs Antigen Non-reactive (Negative) 05/09/17 17:00 Hep B Core IgM Ab Non-reactive (NonReactive) 05/09/17 17:00 Hepatitis C Antibody Reactive (NonReactive) A 05/09/17 17:00
[2017-05-16] MEDS: SENSIPAR PO SCH ×2 (09:53→22:35)
[2017-05-16] MEDS: RENVELA PO SCH ×2 (09:53→14:54)
[2017-05-16] MEDS: ZYVOX PO SCH ×2 (09:54→22:36)
[2017-05-16] MEDS: HABITROL TD SCH (09:54)
[2017-05-16] MEDS: HEPARIN SUB-Q SCH ×2 (09:54→22:37)
[2017-05-16] MEDS: ZOLOFT PO SCH (09:54)
--- NOTE | 2017-05-16 09:56 | Progress Note ---
Assessment and Plan - Patient Problems (1) ESRD (end stage renal disease) Current Visit: Yes Status: Chronic Plan to address problem: Hemodialysis tomorrow for UF and clearance Levophed for BP support Fluid restriction of 1 liter per day Renally dose medications Monitor I/O's Obtain daily weights Assess dialysis needs daily (2) Diabetes mellitus Current Visit: Yes Status: Acute Plan to address problem: As per Attending (3) Acute hypoxemic respiratory failure Current Visit: No Status: Acute Plan to address problem: S/P intubation. On venturi mask. (4) Hypotension Current Visit: Yes Status: Acute Plan to address problem: On Levophed drip Subjective Date of service: 05/16/17 Principal diagnosis: MRSA pneumonia, shock,sepsis,ESRD Interval history: Patient seen lying in bed. Receiving breathing treatment. On 4 liters of oxygen via NC. Awake and alert. Objective - Vital Signs Vital signs: Vital Signs - 12hr 05/15/17 05/15/17 05/15/17 22:00 22:15 22:30 Temperature Pulse Rate 99 H 99 H 99 H Pulse Rate [ Anterior Bilateral Throughout] Pulse Rate [ Apical] Pulse Rate [ Left Dorsalis Pedis] Pulse Rate [ Left Posterior Tibial] Pulse Rate [ Right Dorsalis Pedis] Pulse Rate [ Right Posterior Tibial] Pulse Rate [ Right Radial] Respiratory 29 H 30 H 28 H Rate Respiratory Rate [Anterior Bilateral Throughout] Blood Pressure 108/60 106/56 103/61 O2 Sat by Pulse 99 95 Oximetry 05/15/17 05/15/17 05/15/17 22:45 23:00 23:15 Temperature Pulse Rate 96 H 95 H 94 H Pulse Rate [ Anterior Bilateral Throughout] Pulse Rate [ Apical] Pulse Rate [ Left Dorsalis Pedis] Pulse Rate [ Left Posterior Tibial] Pulse Rate [ Right Dorsalis Pedis] Pulse Rate [ Right Posterior Tibial] Pulse Rate [ Right Radial] Respiratory 28 H 26 H 30 H Rate Respiratory Rate [Anterior Bilateral Throughout] Blood Pressure 97/55 96/56 93/53 O2 Sat by Pulse Oximetry 05/15/17 05/15/17 05/15/17 23:30 23:45 23:53 Temperature Pulse Rate 95 H 95 H 94 H Pulse Rate [ Anterior Bilateral Throughout] Pulse Rate [ 94 H Apical] Pulse Rate [ 94 H Left Dorsalis Pedis] Pulse Rate [ 94 H Left Posterior Tibial] Pulse Rate [ 94 H Right Dorsalis Pedis] Pulse Rate [ 94 H Right Posterior Tibial] Pulse Rate [ 94 H Right Radial] Respiratory 26 H 28 H 31 H Rate Respiratory Rate [Anterior Bilateral Throughout] Blood Pressure 91/56 92/54 92/54 O2 Sat by Pulse 98 97 Oximetry 05/16/17 05/16/17 05/16/17 00:00 00:15 00:30 Temperature 98.1 F Pulse Rate 94 H 93 H 93 H Pulse Rate [ Anterior Bilateral Throughout] Pulse Rate [ Apical] Pulse Rate [ Left Dorsalis Pedis] Pulse Rate [ Left Posterior Tibial] Pulse Rate [ Right Dorsalis Pedis] Pulse Rate [ Right Posterior Tibial] Pulse Rate [ Right Radial] Respiratory 27 H 27 H 29 H Rate Respiratory Rate [Anterior Bilateral Throughout] Blood Pressure 94/55 90/56 88/53 O2 Sat by Pulse Oximetry 05/16/17 05/16/17 05/16/17 00:45 01:00 01:15 Temperature Pulse Rate 94 H 94 H 94 H Pulse Rate [ Anterior Bilateral Throughout] Pulse Rate [ Apical] Pulse Rate [ Left Dorsalis Pedis] Pulse Rate [ Left Posterior Tibial] Pulse Rate [ Right Dorsalis Pedis] Pulse Rate [ Right Posterior Tibial] Pulse Rate [ Right Radial] Respiratory 28 H 29 H 30 H Rate Respiratory Rate [Anterior Bilateral Throughout] Blood Pressure 95/53 92/55 91/51 O2 Sat by Pulse 95 Oximetry 05/16/17 05/16/17 05/16/17 01:30 01:45 02:00 Temperature Pulse Rate 95 H 95 H 95 H Pulse Rate [ Anterior Bilateral Throughout] Pulse Rate [ Apical] Pulse Rate [ Left Dorsalis Pedis] Pulse Rate [ Left Posterior Tibial] Pulse Rate [ Right Dorsalis Pedis] Pulse Rate [ Right Posterior Tibial] Pulse Rate [ Right Radial] Respiratory 30 H 29 H 29 H Rate Respiratory Rate [Anterior Bilateral Throughout] Blood Pressure 93/56 93/56 95/55 O2 Sat by Pulse 97 100 Oximetry 05/16/17 05/16/17 05/16/17 02:15 02:25 02:30 Temperature Pulse Rate 95 H 96 H Pulse Rate [ 95 H Anterior Bilateral Throughout] Pulse Rate [ Apical] Pulse Rate [ Left Dorsalis Pedis] Pulse Rate [ Left Posterior Tibial] Pulse Rate [ Right Dorsalis Pedis] Pulse Rate [ Right Posterior Tibial] Pulse Rate [ Right Radial] Respiratory 28 H 30 H Rate Respiratory 27 H Rate [Anterior Bilateral Throughout] Blood Pressure 94/55 95/52 O2 Sat by Pulse 100 Oximetry 05/16/17 05/16/17 05/16/17 02:45 02:54 03:00 Temperature Pulse Rate 99 H 98 H Pulse Rate [ 96 H Anterior Bilateral Throughout] Pulse Rate [ Apical] Pulse Rate [ Left Dorsalis Pedis] Pulse Rate [ Left Posterior Tibial] Pulse Rate [ Right Dorsalis Pedis] Pulse Rate [ Right Posterior Tibial] Pulse Rate [ Right Radial] Respiratory 28 H 22 Rate Respiratory 20 Rate [Anterior Bilateral Throughout] Blood Pressure 85/50 88/57 O2 Sat by Pulse 93 94 Oximetry 05/16/17 05/16/17 05/16/17 03:15 03:30 03:45 Temperature Pulse Rate 101 H 98 H 97 H Pulse Rate [ Anterior Bilateral Throughout] Pulse Rate [ Apical] Pulse Rate [ Left Dorsalis Pedis] Pulse Rate [ Left Posterior Tibial] Pulse Rate [ Right Dorsalis Pedis] Pulse Rate [ Right Posterior Tibial] Pulse Rate [ Right Radial] Respiratory 27 H 15 29 H Rate Respiratory Rate [Anterior Bilateral Throughout] Blood Pressure 97/59 80/40 79/45 O2 Sat by Pulse 91 Oximetry 05/16/17 05/16/17 05/16/17 04:00 04:15 04:30 Temperature 98.4 F Pulse Rate 98 H 98 H 99 H Pulse Rate [ Anterior Bilateral Throughout] Pulse Rate [ Apical] Pulse Rate [ Left Dorsalis Pedis] Pulse Rate [ Left Posterior Tibial] Pulse Rate [ Right Dorsalis Pedis] Pulse Rate [ Right Posterior Tibial] Pulse Rate [ Right Radial] Respiratory 31 H 31 H 30 H Rate Respiratory Rate [Anterior Bilateral Throughout] Blood Pressure 91/53 98/57 100/57 O2 Sat by Pulse 98 97 Oximetry 05/16/17 05/16/17 05/16/17 04:45 05:00 05:15 Temperature Pulse Rate 99 H 100 H 101 H Pulse Rate [ Anterior Bilateral Throughout] Pulse Rate [ Apical] Pulse Rate [ Left Dorsalis Pedis] Pulse Rate [ Left Posterior Tibial] Pulse Rate [ Right Dorsalis Pedis] Pulse Rate [ Right Posterior Tibial] Pulse Rate [ Right Radial] Respiratory 30 H 32 H 31 H Rate Respiratory Rate [Anterior Bilateral Throughout] Blood Pressure 103/56 88/47 101/58 O2 Sat by Pulse 94 Oximetry 05/16/17 05/16/17 05/16/17 05:30 05:45 06:00 Temperature Pulse Rate 103 H 101 H 102 H Pulse Rate [ Anterior Bilateral Throughout] Pulse Rate [ Apical] Pulse Rate [ Left Dorsalis Pedis] Pulse Rate [ Left Posterior Tibial] Pulse Rate [ Right Dorsalis Pedis] Pulse Rate [ Right Posterior Tibial] Pulse Rate [ Right Radial] Respiratory 18 26 H 23 Rate Respiratory Rate [Anterior Bilateral Throughout] Blood Pressure 90/52 103/61 104/59 O2 Sat by Pulse 93 Oximetry 05/16/17 05/16/17 05/16/17 06:15 06:30 06:45 Temperature Pulse Rate 102 H 100 H 101 H Pulse Rate [ Anterior Bilateral Throughout] Pulse Rate [ Apical] Pulse Rate [ Left Dorsalis Pedis] Pulse Rate [ Left Posterior Tibial] Pulse Rate [ Right Dorsalis Pedis] Pulse Rate [ Right Posterior Tibial] Pulse Rate [ Right Radial] Respiratory 29 H 29 H 29 H Rate Respiratory Rate [Anterior Bilateral Throughout] Blood Pressure 106/66 96/55 95/57 O2 Sat by Pulse Oximetry 05/16/17 05/16/17 05/16/17 07:00 07:15 07:30 Temperature Pulse Rate 101 H 100 H 98 H Pulse Rate [ Anterior Bilateral Throughout] Pulse Rate [ Apical] Pulse Rate [ Left Dorsalis Pedis] Pulse Rate [ Left Posterior Tibial] Pulse Rate [ Right Dorsalis Pedis] Pulse Rate [ Right Posterior Tibial] Pulse Rate [ Right Radial] Respiratory 23 28 H 27 H Rate Respiratory Rate [Anterior Bilateral Throughout] Blood Pressure 93/57 96/56 92/51 O2 Sat by Pulse Oximetry 05/16/17 05/16/17 05/16/17 07:45 08:00 08:15 Temperature 98.5 F Pulse Rate 97 H 97 H 95 H Pulse Rate [ Anterior Bilateral Throughout] Pulse Rate [ Apical] Pulse Rate [ Left Dorsalis Pedis] Pulse Rate [ Left Posterior Tibial] Pulse Rate [ Right Dorsalis Pedis] Pulse Rate [ Right Posterior Tibial] Pulse Rate [ Right Radial] Respiratory 26 H 29 H 30 H Rate Respiratory Rate [Anterior Bilateral Throughout] Blood Pressure 85/52 92/57 87/50 O2 Sat by Pulse Oximetry 05/16/17 08:30 Temperature Pulse Rate 96 H Pulse Rate [ Anterior Bilateral Throughout] Pulse Rate [ Apical] Pulse Rate [ Left Dorsalis Pedis] Pulse Rate [ Left Posterior Tibial] Pulse Rate [ Right Dorsalis Pedis] Pulse Rate [ Right Posterior Tibial] Pulse Rate [ Right Radial] Respiratory 28 H Rate Respiratory Rate [Anterior Bilateral Throughout] Blood Pressure 90/52 O2 Sat by Pulse Oximetry - General Appearance General appearance: well-developed, appears stated age, cachectic, fatigue EENT: ATNC, PERRL, hearing intact, vision intact Neck: no JVD, supple Respiratory: Present: Decreased Breath Sounds, Other (on 4 liters of oxygen) Cardiology: tachycardia, S1S2 Gastrointestinal: normoactive bowel sounds Integumentary: warm and dry, other (bruises to skin) Neurologic: alert and oriented x3 Musculoskeletal: other (No edema) Psychiatric: cooperative - Lab 05/16/17 04:00 05/16/17 04:00 Most recent lab results Calcium 9.2 mg/dL (8.4-10.2) 05/16/17 04:00
[2017-05-16] MEDS: BABY ASPIRIN PO SCH (10:00)
--- NOTE | 2017-05-16 11:15 | Progress Note ---
Assessment and Plan Assessment: Acute on chronic systolic heart failure [facility] - echo 04/17/2017 showed EF 40% Elevated troponins - ECG with NAF; pt with no c/o chest pain; currently nonspecific in setting of acutely decompensated HF, sepsis, and ESRD Acute respiratory failure - s/p extubation AMS - head CT with NAF MRSA pneumonia/atelectasis / sepsis ESRD on HD - TTS HD schedule CAD, [facility] with PCI of mid LAD and mid circ at [facility] (01/20/2016), NSTEMI with subacute left circ and LAD stent thrombosis s/p stent of left circ and balloon angioplasty alone of LAD (02/22/2016) DM H/o HTN - with hypotension since admission HLP Anemia Hepatitis C Moderate to severe TR Pulmonary HTN - RVSP 57.9mmHg Plan: Volume optimization per nephrology. Wean pressors as tolerated. No indication for repeat echo given recent echo 04/17/2017. No BB, ACEI/ARB, and/or anti-hypertensives at this time given persistent hypotension since admission. Cardiac status is stable,continue supportive rx. B.P on low side,on Levophed. Subjective Principal diagnosis: MRSA pneumonia, shock,sepsis,ESRD Interval history: Patrient comfortable,no acute distress.Wants to go home. Objective Vital Signs Temp Pulse Pulse Pulse Pulse Pulse Pulse 05/16/17 10:17 93 H 05/16/17 10:07 92 H 05/16/17 08:30 96 H 05/16/17 08:15 95 H 05/16/17 08:00 98.5 F 97 H 05/16/17 07:45 97 H 05/16/17 07:30 98 H 05/16/17 07:15 100 H 05/16/17 07:00 101 H 05/16/17 06:45 101 H 05/16/17 06:30 100 H 05/16/17 06:15 102 H 05/16/17 06:00 102 H 05/16/17 05:45 101 H 05/16/17 05:30 103 H 05/16/17 05:15 101 H 05/16/17 05:00 100 H 05/16/17 04:45 99 H 05/16/17 04:30 99 H 05/16/17 04:15 98 H 05/16/17 04:00 98.4 F 98 H 12/17/17 03:45 97 H 17/17 03:30 98 H 17/17 03:15 101 H 1717 03:00 98 H 1717 02:54 96 H 17/17 02:45 99 H 17/17 02:30 96 H 1717 02:25 95 H 17/17 02:15 95 H 1717 02:00 95 H 1717 01:45 95 H 1717 01:30 95 H 17/17 01:15 94 H 1717 01:00 94 H 17/17 00:45 94 H 17/17 00:30 93 H 17/17 00:15 93 H 17/17 00:00 98.1 F 94 H 16/17 23:53 94 H 16/17 23:45 95 H 16/17 23:30 95 H 94 H 94 H 94 H 94 H 16/17 23:15 94 H 16/17 23:00 95 H 16/17 22:45 96 H 16/17 22:30 99 H 16/17 22:15 99 H 16/17 22:00 99 H 16/17 21:45 97 H 16/17 21:30 99 H 16/17 21:15 100 H 16/17 21:00 99 H 16/17 20:45 100 H 16/17 20:30 100 H 16/17 20:15 100 H 96 H 16/17 20:00 97.4 F L 100 H 16/17 19:59 16/17 19:58 101 H 16/17 19:45 101 H 16/17 19:31 99 H 16/17 19:15 96 H 1216/17 19:00 16/17 18:45 96 H 16/17 18:30 96 H 16/17 18:15 94 H 1216/17 18:00 97 H 16/17 17:45 97 H 16/17 17:30 97 H 1216/17 17:15 99 H 12/16/17 17:01 100 H 12/16/17 16:45 101 H 05/15/17 16:31 101 H 05/15/17 16:15 101 H 05/15/17 16:01 101 H 05/15/17 16:00 97.1 F L 05/15/17 15:45 100 H 05/15/17 15:30 97 H 05/15/17 15:15 96 H 05/15/17 15:00 96 H 05/15/17 14:45 96 H 05/15/17 14:30 96 H 05/15/17 14:15 96 H 05/15/17 14:00 96 H 05/15/17 13:45 95 H 05/15/17 13:30 94 H 05/15/17 13:15 97 H 05/15/17 13:00 97 H 05/15/17 12:45 98 H 05/15/17 12:30 100 H 05/15/17 12:15 101 H 05/15/17 12:00 98.8 F 102 H 05/15/17 11:45 103 H 05/15/17 11:30 102 H 05/15/17 11:22 05/15/17 11:15 103 H Pulse Pulse Resp Resp BP Pulse Ox 05/16/17 10:17 28 H 05/16/17 10:07 22 96 05/16/17 08:30 28 H 90/52 05/16/17 08:15 30 H 87/50 05/16/17 08:00 29 H 92/57 05/16/17 07:45 26 H 85/52 05/16/17 07:30 27 H 92/51 05/16/17 07:15 28 H 96/56 05/16/17 07:00 23 93/57 05/16/17 06:45 29 H 95/57 05/16/17 06:30 29 H 96/55 05/16/17 06:15 29 H 106/66 05/16/17 06:00 23 104/59 05/16/17 05:45 26 H 103/61 05/16/17 05:30 18 90/52 93 05/16/17 05:15 31 H 101/58 05/16/17 05:00 32 H 88/47 94 05/16/17 04:45 30 H 103/56 05/16/17 04:30 30 H 100/57 05/16/17 04:15 31 H 98/57 97 05/16/17 04:00 31 H 91/53 98 05/16/17 03:45 29 H 79/45 91 05/16/17 03:30 15 80/40 05/16/17 03:15 27 H 97/59 05/16/17 03:00 22 88/57 94 05/16/17 02:54 20 05/16/17 02:45 28 H 85/50 93 05/16/17 02:30 30 H 95/52 05/16/17 02:25 27 H 05/16/17 02:15 28 H 94/55 100 05/16/17 02:00 29 H 95/55 100 05/16/17 01:45 29 H 93/56 97 05/16/17 01:30 30 H 93/56 05/16/17 01:15 30 H 91/51 95 05/16/17 01:00 29 H 92/55 05/16/17 00:45 28 H 95/53 05/16/17 00:30 29 H 88/53 05/16/17 00:15 27 H 90/56 05/16/17 00:00 27 H 94/55 05/15/17 23:53 31 H 92/54 97 05/15/17 23:45 28 H 92/54 05/15/17 23:30 94 H 94 H 26 H 91/56 98 05/15/17 23:15 30 H 93/53 17 23:00 26 H 96/56 17 22:45 28 H 97/55 05/15/17 22:30 28 H 103/61 05/15/17 22:15 30 H 106/56 95 17 22:00 29 H 108/60 99 1617 21:45 27 H 114/56 17 21:30 30 H 100/59 17 21:15 28 H 97/62 17 21:00 28 H 94/57 17 20:45 30 H 97/61 16/17 20:30 28 H 101/63 1617 20:15 35 H 24 103/56 95 17 20:00 21 105/60 12/16/17 19:59 93 05/15/17 19:58 27 H 05/15/17 19:45 25 H 105/60 05/15/17 19:31 33 H 107/61 94 05/15/17 19:15 37 H 75/43 88 05/15/17 19:00 86/58 05/15/17 18:45 23 97/52 05/15/17 18:30 21 92/54 05/15/17 18:15 25 H 85/49 05/15/17 18:00 25 H 93/55 99 05/15/17 17:45 26 H 81/41 05/15/17 17:30 28 H 85/45 05/15/17 17:15 27 H 82/37 05/15/17 17:01 26 H 86/55 45 L 05/15/17 16:45 16 104/72 05/15/17 16:31 32 H 108/51 100 05/15/17 16:15 37 H 73/22 05/15/17 16:01 14 73/22 81 L 05/15/17 16:00 05/15/17 15:45 21 90/51 76 L 05/15/17 15:30 28 H 89/62 05/15/17 15:15 27 H 94/56 05/15/17 15:00 27 H 90/61 05/15/17 14:45 25 H 104/62 05/15/17 14:30 28 H 104/65 05/15/17 14:15 26 H 103/62 05/15/17 14:00 29 H 98/64 05/15/17 13:45 26 H 94/62 05/15/17 13:30 24 68/36 100 05/15/17 13:15 17 77/46 99 05/15/17 13:00 27 H 103/60 05/15/17 12:45 27 H 94/61 05/15/17 12:30 27 H 98/59 05/15/17 12:15 22 91/59 05/15/17 12:00 24 96/58 97 05/15/17 11:45 26 H 100/62 98 05/15/17 11:30 26 H 101/59 99 05/15/17 11:22 94 05/15/17 11:15 22 97/59 - Physical Examination General: No Apparent Distress HEENT: Positive: PERRL, Normocephaly, Mucus Membranes Moist Neck: Positive: neck supple, trachea midline Lungs: Positive: Decreased Breath Sounds (coarse creps noted in bases.) Neuro: Positive: Grossly Intact Abdomen: Positive: Soft. Negative: Tender Skin: Positive: Clear. Negative: Rash, Wound Musculoskeletal: No Fluid Collection, No Pain, Normal Range of Motion Extremities: Absent: edema - Labs and Meds CBC 05/16/17 Range/Units 04:00 WBC 23.5 H (4.5-11.0) K/mm3 RBC 3.25 L (3.65-5.03) M/mm3 Hgb 10.9 (10.1-14.3) gm/dl Hct 34.5 (30.3-42.9) % Plt Count 322 (140-440) K/mm3 Comprehensive Metabolic Panel 05/15/17 05/16/17 Range/Units 12:15 04:00 Sodium 137 (137-145) mmol/L Potassium 4.2 (3.6-5.0) mmol/L Chloride 91.5 L (98-107) mmol/L Carbon Dioxide 25 (22-30) mmol/L BUN 48 H (7-17) mg/dL Creatinine 4.5 H D (0.7-1.2) mg/dL Glucose 336 H 97 (65-100) mg/dL Calcium 9.2 (8.4-10.2) mg/dL - Imaging and Cardiology EKG: report reviewed, image reviewed Cardiac cath: report reviewed (VA and PCI of mid LAD and mid circ on 01/20/2016; subacute left circ and LAD stent thrombosis s/p stent of left circ and balloon angioplasty alone of LAD (02/22/2016)) - EKG Sinus rhythms and dysrhythmias: sinus rhythm AV and intraventricular conduction: right bundle branch block (incomplete)
--- NOTE | 2017-05-16 14:54 | Progress Note ---
Assessment and Plan Imp: 1. HCAP, presumed MRSA 2. Sepsis w/ septic shock 3. ESRD 4. A/C respiratory failure, hypoxia 5. Ischemic cardiomyopathy/CAD 6. Pulm HTN 7. ? COPD Rec: 1. Cont. Zyvox; consider adding empiric GNR coverage if WBC continues to rise; would discuss with ID; agree with repeating blood cultures 2. Wean pressors to keep MAP > 65; consider Midodrine 3. No empyema on CT chest 4. Reviewed ST evaluation -> diet modified 5. DVT PPx 6. D/c smoking 7. Outpatient PFTs 8. Complex decision-making; still critically ill on pressors Plan of care reviewed w/ patient, she understands/agrees Subjective Date of service: 05/16/17 Principal diagnosis: MRSA pneumonia, shock,sepsis,ESRD Interval history: No events. On 4L NC. Awake, alert. SOB is better. Remains on Levophed down to 6mcg for BP support. No new complaints. Denies N/V/D, abd pain. Does not make urine. No ross in place. Active Medications Acetaminophen (Tylenol) 650 mg TN Q4H PRN PRN Reason: Pain, Mild (1-3) Albuterol (Proventil) 2.5 mg IH Q6HRT [facility] Last Admin: 05/16/17 14:18 Dose: 2.5 mg Aspirin (Baby Aspirin) 81 mg PO QDAY [facility] Last Admin: 05/16/17 10:00 Dose: 81 mg Atorvastatin Calcium (Lipitor) 40 mg PO DAILY [facility] Last Admin: 05/16/17 09:54 Dose: 40 mg Cinacalcet (Sensipar) 30 mg PO BID [facility] Last Admin: 05/16/17 09:53 Dose: 30 mg Cyclobenzaprine HCl (Flexeril) 10 mg PO TID PRN PRN Reason: Muscle Spasm Last Admin: 05/12/17 10:24 Dose: 10 mg Gabapentin (Neurontin) 300 mg PO Q8HR [facility] Last Admin: 05/16/17 05:12 Dose: 300 mg Heparin Sodium (Porcine) (Heparin) 5,000 unit SUB-Q Q12HR [facility] Last Admin: 05/16/17 09:54 Dose: 5,000 unit Hydrophilic Ointment (Vaseline Lip Therapy) 1 applic TP Q2HR PRN PRN Reason: Dry Lips Sodium Chloride (Nacl 0.9%) 100 mls @ 999 mls/hr IV GISSELL PRN PRN Reason: Hypotension Norepinephrine 8 mg/ Sodium (Chloride) 250 mls @ 3.75 mls/hr IV TITR TATIANA; 2 MCG /MIN PRN Reason: Protocol Last Admin: 05/16/17 11:39 Dose: 5 mcg/min, 9.37 mls/hr Sodium Chloride (Nacl 0.9%) 100 mls @ 999 mls/hr IV GISSELL PRN PRN Reason: Hypotension Insulin Aspart (Novolog) 0 units SUB-Q ACHS TATIANA PRN Reason: Protocol Last Admin: 05/16/17 12:23 Dose: 3 units Insulin Human Isoph/Insulin Regular (Novolin 70/30) 10 unit SUB-Q BIDDIAB [facility] Last Admin: 05/16/17 09:58 Dose: 10 unit Linezolid (Zyvox) 600 mg PO BID [facility] Last Admin: 05/16/17 09:54 Dose: 600 mg Multi-Ingred Cream/Lotion/Oil/Oint (Artificial Tears Ophth Oint) 1 applic OU Q4HR PRN PRN Reason: Dry Eye(s) Nicotine (Habitrol) 21 mg TD QDAY [facility] Last Admin: 05/16/17 09:54 Dose: 21 mg Ondansetron HCl (Zofran) 4 mg IV Q8H PRN PRN Reason: Nausea And Vomiting Last Admin: 05/15/17 19:43 Dose: 4 mg Sertraline HCl (Zoloft) 50 mg PO QDAY [facility] Last Admin: 05/16/17 09:54 Dose: 50 mg Sevelamer Carbonate (Renvela) 800 mg PO TIDWM [facility] Last Admin: 05/16/17 09:53 Dose: 800 mg Trazodone HCl (Desyrel) 50 mg PO QHS [facility] Last Admin: 05/15/17 22:27 Dose: 50 mg Objective Vital Signs - 12hr 05/16/17 05/16/17 05/16/17 02:54 03:00 03:15 Temperature Pulse Rate 98 H 101 H Pulse Rate [ 96 H Anterior Bilateral Throughout] Respiratory 22 27 H Rate Respiratory 20 Rate [Anterior Bilateral Throughout] Blood Pressure 88/57 97/59 O2 Sat by Pulse 94 Oximetry 05/16/17 05/16/17 05/16/17 03:30 03:45 04:00 Temperature 98.4 F Pulse Rate 98 H 97 H 98 H Pulse Rate [ Anterior Bilateral Throughout] Respiratory 15 29 H 31 H Rate Respiratory Rate [Anterior Bilateral Throughout] Blood Pressure 80/40 79/45 91/53 O2 Sat by Pulse 91 98 Oximetry 05/16/17 05/16/17 05/16/17 04:15 04:30 04:45 Temperature Pulse Rate 98 H 99 H 99 H Pulse Rate [ Anterior Bilateral Throughout] Respiratory 31 H 30 H 30 H Rate Respiratory Rate [Anterior Bilateral Throughout] Blood Pressure 98/57 100/57 103/56 O2 Sat by Pulse 97 Oximetry 05/16/17 05/16/17 05/16/17 05:00 05:15 05:30 Temperature Pulse Rate 100 H 101 H 103 H Pulse Rate [ Anterior Bilateral Throughout] Respiratory 32 H 31 H 18 Rate Respiratory Rate [Anterior Bilateral Throughout] Blood Pressure 88/47 101/58 90/52 O2 Sat by Pulse 94 93 Oximetry 05/16/17 05/16/17 05/16/17 05:45 06:00 06:15 Temperature Pulse Rate 101 H 102 H 102 H Pulse Rate [ Anterior Bilateral Throughout] Respiratory 26 H 23 29 H Rate Respiratory Rate [Anterior Bilateral Throughout] Blood Pressure 103/61 104/59 106/66 O2 Sat by Pulse Oximetry 05/16/17 05/16/17 05/16/17 06:30 06:45 07:00 Temperature Pulse Rate 100 H 101 H 101 H Pulse Rate [ Anterior Bilateral Throughout] Respiratory 29 H 29 H 23 Rate Respiratory Rate [Anterior Bilateral Throughout] Blood Pressure 96/55 95/57 93/57 O2 Sat by Pulse Oximetry 05/16/17 05/16/17 05/16/17 07:15 07:30 07:45 Temperature Pulse Rate 100 H 98 H 97 H Pulse Rate [ Anterior Bilateral Throughout] Respiratory 28 H 27 H 26 H Rate Respiratory Rate [Anterior Bilateral Throughout] Blood Pressure 96/56 92/51 85/52 O2 Sat by Pulse Oximetry 05/16/17 05/16/17 05/16/17 08:00 08:15 08:30 Temperature 98.5 F Pulse Rate 97 H 95 H 96 H Pulse Rate [ Anterior Bilateral Throughout] Respiratory 29 H 30 H 28 H Rate Respiratory Rate [Anterior Bilateral Throughout] Blood Pressure 92/57 87/50 90/52 O2 Sat by Pulse Oximetry 05/16/17 05/16/17 05/16/17 08:45 09:00 09:15 Temperature Pulse Rate 95 H 92 H 93 H Pulse Rate [ Anterior Bilateral Throughout] Respiratory 29 H 25 H 28 H Rate Respiratory Rate [Anterior Bilateral Throughout] Blood Pressure 89/51 86/49 85/52 O2 Sat by Pulse Oximetry 05/16/17 05/16/17 05/16/17 09:30 09:45 10:00 Temperature Pulse Rate 92 H 94 H 91 H Pulse Rate [ Anterior Bilateral Throughout] Respiratory 29 H 21 29 H Rate Respiratory Rate [Anterior Bilateral Throughout] Blood Pressure 85/52 86/55 85/51 O2 Sat by Pulse 95 Oximetry 05/16/17 05/16/17 05/16/17 10:07 10:15 10:17 Temperature Pulse Rate 93 H Pulse Rate [ 92 H 93 H Anterior Bilateral Throughout] Respiratory 22 Rate Respiratory 22 28 H Rate [Anterior Bilateral Throughout] Blood Pressure 93/53 O2 Sat by Pulse 96 97 Oximetry 05/16/17 05/16/17 05/16/17 10:30 10:45 11:00 Temperature Pulse Rate 94 H 93 H 94 H Pulse Rate [ Anterior Bilateral Throughout] Respiratory 29 H 18 25 H Rate Respiratory Rate [Anterior Bilateral Throughout] Blood Pressure 93/55 86/46 87/52 O2 Sat by Pulse 98 Oximetry 05/16/17 05/16/17 05/16/17 11:16 11:30 11:45 Temperature Pulse Rate 91 H 96 H 95 H Pulse Rate [ Anterior Bilateral Throughout] Respiratory 26 H 31 H 22 Rate Respiratory Rate [Anterior Bilateral Throughout] Blood Pressure 69/30 79/35 96/54 O2 Sat by Pulse 96 98 Oximetry 05/16/17 05/16/17 05/16/17 12:00 12:15 12:30 Temperature 97.7 F Pulse Rate 98 H 97 H 96 H Pulse Rate [ Anterior Bilateral Throughout] Respiratory 18 24 25 H Rate Respiratory Rate [Anterior Bilateral Throughout] Blood Pressure 81/54 96/53 94/58 O2 Sat by Pulse Oximetry 05/16/17 05/16/17 05/16/17 12:45 13:00 13:15 Temperature Pulse Rate 96 H 94 H 95 H Pulse Rate [ Anterior Bilateral Throughout] Respiratory 31 H 30 H 28 H Rate Respiratory Rate [Anterior Bilateral Throughout] Blood Pressure 91/55 92/57 86/50 O2 Sat by Pulse 97 97 100 Oximetry 1205/16/17 05/16/17 13:30 13:45 14:00 Temperature Pulse Rate 94 H 94 H 94 H Pulse Rate [ Anterior Bilateral Throughout] Respiratory 21 29 H 30 H Rate Respiratory Rate [Anterior Bilateral Throughout] Blood Pressure 90/51 90/53 87/48 O2 Sat by Pulse 98 Oximetry 05/16/17 05/16/17 14:16 14:36 Temperature Pulse Rate Pulse Rate [ 94 H 95 H Anterior Bilateral Throughout] Respiratory Rate Respiratory 14 22 Rate [Anterior Bilateral Throughout] Blood Pressure O2 Sat by Pulse Oximetry Constitutional: no acute distress, alert ENT: oropharynx moist Neck: supple Effort: normal Ascultation: Bilateral: wheezes (few expiratory bilaterally), rhonchi (few bilaterally) Cardiovascular: regular rate and rhythm (no mrg) Gastrointestinal: normoactive bowel sounds, soft, non-tender Integumentary: other (Patsy left-sided face) Extremities: no cyanosis, no edema Neurologic: normal mental status, non-focal exam, pupils equal and round, CN II- XII normal, motor strength normal and Psychiatric: mood appropriate, affect normal CBC and BMP: 05/16/17 04:00 05/16/17 04:00 ABG, PT/INR, D-dimer: ABG POC ABG pH 7.450 (7.35-7.45) 05/12/17 13:10 POC ABG pCO2 36.7 (35-45) 05/12/17 13:10 POC ABG pO2 66 (80-105) L 05/12/17 13:10 POC ABG HCO3 25.5 05/12/17 13:10 POC ABG Total CO2 27 05/12/17 13:10 POC ABG O2 Sat 94 05/12/17 13:10 PT/INR, D-dimer PT 15.2 Sec. (12.2-14.9) H 05/08/17 21:25 INR 1.14 (0.87-1.13) H 05/08/17 21:25 Abnormal lab findings: Abnormal Labs 05/08/17 05/08/17 05/08/17 21:25 21:25 21:25 WBC RBC 2.55 L Hgb 8.9 L Hct 28.1 L MCV 111 H MCH 35 H RDW 25.4 H Lymph % (Auto) [place] % (Auto) Lymph # [place] # Baso # Seg Neutrophils % Seg Neuts % (Manual) 92.0 H Lymphocytes % (Manual) 6.0 L Monocytes % (Manual) Nucleated RBC % Seg Neutrophils # Seg Neutrophils # Man 9.3 H Lymphocytes # (Manual) 0.6 L Monocytes # (Manual) PT 15.2 H INR 1.14 H POC ABG pH POC ABG pCO2 POC ABG pO2 Sodium Potassium Chloride Carbon Dioxide BUN Creatinine Glucose POC Glucose Lactic Acid 2.50 H* Calcium AST ALT Alkaline Phosphatase Total Creatine Kinase CK-MB (CK-2) Rel Index Troponin T C-Reactive Protein Total Protein Albumin LDL Cholesterol Direct HDL Cholesterol Urine WBC (Auto) Salicylates Hepatitis C Antibody 05/08/17 05/08/17 05/08/17 21:35 22:04 22:42 WBC RBC Hgb Hct MCV MCH RDW Lymph % (Auto) [place] % (Auto) Lymph # [place] # Baso # Seg Neutrophils % Seg Neuts % (Manual) Lymphocytes % (Manual) Monocytes % (Manual) Nucleated RBC % Seg Neutrophils # Seg Neutrophils # Man Lymphocytes # (Manual) Monocytes # (Manual) PT INR POC ABG pH 7.271 L POC ABG pCO2 56.5 H POC ABG pO2 30 L Sodium Potassium Chloride 107.8 H Carbon Dioxide BUN 22 H Creatinine 2.6 H Glucose 202 H POC Glucose Lactic Acid Calcium 7.3 L AST ALT Alkaline Phosphatase 258 H Total Creatine Kinase CK-MB (CK-2) Rel Index Troponin T C-Reactive Protein Total Protein 5.2 L Albumin 2.9 L LDL Cholesterol Direct HDL Cholesterol Urine WBC (Auto) Salicylates < 0.3 L Hepatitis C Antibody 05/08/17 05/09/17 05/09/17 Unknown 00:24 06:00 WBC RBC Hgb Hct MCV MCH RDW Lymph % (Auto) [place] % (Auto) Lymph # [place] # Baso # Seg Neutrophils % Seg Neuts % (Manual) Lymphocytes % (Manual) Monocytes % (Manual) Nucleated RBC % Seg Neutrophils # Seg Neutrophils # Man Lymphocytes # (Manual) Monocytes # (Manual) PT INR POC ABG pH 7.283 L POC ABG pCO2 49.9 H POC ABG pO2 249 H Sodium Potassium Chloride Carbon Dioxide BUN Creatinine Glucose POC Glucose Lactic Acid Calcium AST ALT Alkaline Phosphatase Total Creatine Kinase 19 L CK-MB (CK-2) Rel Index 11.0 H Troponin T 0.612 H* C-Reactive Protein Total Protein Albumin LDL Cholesterol Direct 21 L HDL Cholesterol 27 L Urine WBC (Auto) 16.0 H Salicylates Hepatitis C Antibody 05/09/17 05/09/17 05/09/17 06:00 06:00 08:52 WBC 11.7 H RBC 2.67 L Hgb 9.3 L Hct 30.0 L MCV 112 H MCH 35 H RDW 24.4 H Lymph % (Auto) [place] % (Auto) Lymph # [place] # Baso # Seg Neutrophils % Seg Neuts % (Manual) Lymphocytes % (Manual) Monocytes % (Manual) Nucleated RBC % Seg Neutrophils # Seg Neutrophils # Man Lymphocytes # (Manual) Monocytes # (Manual) PT INR POC ABG pH 7.323 L POC ABG pCO2 POC ABG pO2 143 H Sodium Potassium Chloride Carbon Dioxide BUN 24 H Creatinine 2.9 H Glucose 172 H POC Glucose Lactic Acid Calcium 7.7 L AST ALT Alkaline Phosphatase Total Creatine Kinase CK-MB (CK-2) Rel Index Troponin T C-Reactive Protein Total Protein Albumin LDL Cholesterol Direct HDL Cholesterol Urine WBC (Auto) Salicylates Hepatitis C Antibody 05/09/17 05/09/17 05/11/17 14:00 17:00 06:09 WBC 11.4 H RBC 2.66 L Hgb 9.1 L Hct 29.3 L MCV 110 H MCH 34 H RDW 23.1 H Lymph % (Auto) 4.2 L [place] % (Auto) 12.7 H Lymph # 0.5 L [place] # 1.4 H Baso # Seg Neutrophils % 82.5 H Seg Neuts % (Manual) Lymphocytes % (Manual) Monocytes % (Manual) Nucleated RBC % Seg Neutrophils # 9.4 H Seg Neutrophils # Man Lymphocytes # (Manual) Monocytes # (Manual) PT INR POC ABG pH POC ABG pCO2 POC ABG pO2 Sodium Potassium Chloride Carbon Dioxide BUN Creatinine Glucose POC Glucose Lactic Acid Calcium AST ALT Alkaline Phosphatase Total Creatine Kinase 24 L CK-MB (CK-2) Rel Index 9.1 H Troponin T 0.654 H* C-Reactive Protein Total Protein Albumin LDL Cholesterol Direct HDL Cholesterol Urine WBC (Auto) Salicylates Hepatitis C Antibody Reactive A 05/11/17 05/11/17 05/11/17 06:09 08:20 11:34 WBC RBC Hgb Hct MCV MCH RDW Lymph % (Auto) [place] % (Auto) Lymph # [place] # Baso # Seg Neutrophils % Seg Neuts % (Manual) Lymphocytes % (Manual) Monocytes % (Manual) Nucleated RBC % Seg Neutrophils # Seg Neutrophils # Man Lymphocytes # (Manual) Monocytes # (Manual) PT INR POC ABG pH POC ABG pCO2 POC ABG pO2 Sodium Potassium Chloride 95.6 L Carbon Dioxide 20 L BUN 24 H Creatinine 3.4 H Glucose 134 H POC Glucose 154 H 149 H Lactic Acid Calcium AST ALT Alkaline Phosphatase Total Creatine Kinase CK-MB (CK-2) Rel Index Troponin T C-Reactive Protein Total Protein Albumin LDL Cholesterol Direct HDL Cholesterol Urine WBC (Auto) Salicylates Hepatitis C Antibody 05/11/17 05/11/17 05/11/17 15:30 16:27 21:58 WBC RBC Hgb Hct MCV MCH RDW Lymph % (Auto) [place] % (Auto) Lymph # [place] # Baso # Seg Neutrophils % Seg Neuts % (Manual) Lymphocytes % (Manual) Monocytes % (Manual) Nucleated RBC % Seg Neutrophils # Seg Neutrophils # Man Lymphocytes # (Manual) Monocytes # (Manual) PT INR POC ABG pH POC ABG pCO2 POC ABG pO2 Sodium Potassium Chloride Carbon Dioxide BUN Creatinine Glucose POC Glucose 163 H 199 H Lactic Acid Calcium AST ALT Alkaline Phosphatase Total Creatine Kinase CK-MB (CK-2) Rel Index Troponin T C-Reactive Protein 44.70 H Total Protein Albumin LDL Cholesterol Direct HDL Cholesterol Urine WBC (Auto) Salicylates Hepatitis C Antibody 05/12/17 05/12/17 05/12/17 08:42 13:10 14:10 WBC RBC Hgb Hct MCV MCH RDW Lymph % (Auto) [place] % (Auto) Lymph # [place] # Baso # Seg Neutrophils % Seg Neuts % (Manual) Lymphocytes % (Manual) Monocytes % (Manual) Nucleated RBC % Seg Neutrophils # Seg Neutrophils # Man Lymphocytes # (Manual) Monocytes # (Manual) PT INR POC ABG pH POC ABG pCO2 POC ABG pO2 66 L Sodium Potassium Chloride Carbon Dioxide BUN Creatinine Glucose POC Glucose 190 H 162 H Lactic Acid Calcium AST ALT Alkaline Phosphatase Total Creatine Kinase CK-MB (CK-2) Rel Index Troponin T C-Reactive Protein Total Protein Albumin LDL Cholesterol Direct HDL Cholesterol Urine WBC (Auto) Salicylates Hepatitis C Antibody 05/12/17 05/12/17 05/12/17 15:46 16:05 21:42 WBC RBC Hgb Hct MCV MCH RDW Lymph % (Auto) [place] % (Auto) Lymph # [place] # Baso # Seg Neutrophils % Seg Neuts % (Manual) Lymphocytes % (Manual) Monocytes % (Manual) Nucleated RBC % Seg Neutrophils # Seg Neutrophils # Man Lymphocytes # (Manual) Monocytes # (Manual) PT INR POC ABG pH POC ABG pCO2 POC ABG pO2 Sodium Potassium Chloride Carbon Dioxide BUN Creatinine Glucose POC Glucose 153 H 153 H Lactic Acid 2.60 H* Calcium AST ALT Alkaline Phosphatase Total Creatine Kinase CK-MB (CK-2) Rel Index Troponin T C-Reactive Protein Total Protein Albumin LDL Cholesterol Direct HDL Cholesterol Urine WBC (Auto) Salicylates Hepatitis C Antibody 05/13/17 05/13/17 05/13/17 05:12 05:30 05:30 WBC 22.0 H RBC 3.02 L Hgb 9.9 L Hct MCV 105 H MCH 33 H RDW 22.9 H Lymph % (Auto) [place] % (Auto) Lymph # [place] # Baso # Seg Neutrophils % Seg Neuts % (Manual) 89.0 H Lymphocytes % (Manual) 6.0 L Monocytes % (Manual) Nucleated RBC % 1.0 H Seg Neutrophils # Seg Neutrophils # Man 19.6 H Lymphocytes # (Manual) Monocytes # (Manual) 0.9 H PT INR POC ABG pH POC ABG pCO2 POC ABG pO2 Sodium Potassium Chloride 90.8 L Carbon Dioxide 21 L BUN 28 H Creatinine 3.1 H Glucose 172 H POC Glucose 182 H Lactic Acid Calcium AST ALT Alkaline Phosphatase Total Creatine Kinase CK-MB (CK-2) Rel Index Troponin T C-Reactive Protein Total Protein Albumin LDL Cholesterol Direct HDL Cholesterol Urine WBC (Auto) Salicylates Hepatitis C Antibody 05/13/17 05/13/17 05/13/17 11:52 18:01 23:31 WBC RBC Hgb Hct MCV MCH RDW Lymph % (Auto) [place] % (Auto) Lymph # [place] # Baso # Seg Neutrophils % Seg Neuts % (Manual) Lymphocytes % (Manual) Monocytes % (Manual) Nucleated RBC % Seg Neutrophils # Seg Neutrophils # Man Lymphocytes # (Manual) Monocytes # (Manual) PT INR POC ABG pH POC ABG pCO2 POC ABG pO2 Sodium Potassium Chloride Carbon Dioxide BUN Creatinine Glucose POC Glucose 185 H 216 H 281 H Lactic Acid Calcium AST ALT Alkaline Phosphatase Total Creatine Kinase CK-MB (CK-2) Rel Index Troponin T C-Reactive Protein Total Protein Albumin LDL Cholesterol Direct HDL Cholesterol Urine WBC (Auto) Salicylates Hepatitis C Antibody 05/14/17 05/14/17 05/14/17 05:43 06:10 06:10 WBC 19.6 H RBC 3.61 L Hgb Hct MCV 104 H MCH 34 H RDW 23.4 H Lymph % (Auto) 8.6 L [place] % (Auto) Lymph # [place] # 1.3 H Baso # 0.2 H Seg Neutrophils % 82.5 H Seg Neuts % (Manual) Lymphocytes % (Manual) Monocytes % (Manual) Nucleated RBC % Seg Neutrophils # 16.2 H Seg Neutrophils # Man Lymphocytes # (Manual) Monocytes # (Manual) PT INR POC ABG pH POC ABG pCO2 POC ABG pO2 Sodium Potassium 3.4 L Chloride 89.1 L Carbon Dioxide BUN 32 H Creatinine 3.0 H Glucose 224 H POC Glucose 215 H Lactic Acid Calcium AST 85 H ALT 162 H Alkaline Phosphatase 347 H Total Creatine Kinase CK-MB (CK-2) Rel Index Troponin T C-Reactive Protein Total Protein 8.5 H Albumin LDL Cholesterol Direct HDL Cholesterol Urine WBC (Auto) Salicylates Hepatitis C Antibody 05/14/17 05/14/17 05/14/17 08:32 11:26 16:42 WBC RBC Hgb Hct MCV MCH RDW Lymph % (Auto) [place] % (Auto) Lymph # [place] # Baso # Seg Neutrophils % Seg Neuts % (Manual) Lymphocytes % (Manual) Monocytes % (Manual) Nucleated RBC % Seg Neutrophils # Seg Neutrophils # Man Lymphocytes # (Manual) Monocytes # (Manual) PT INR POC ABG pH POC ABG pCO2 POC ABG pO2 Sodium Potassium Chloride Carbon Dioxide BUN Creatinine Glucose POC Glucose 204 H 182 H 310 H Lactic Acid Calcium AST ALT Alkaline Phosphatase Total Creatine Kinase CK-MB (CK-2) Rel Index Troponin T C-Reactive Protein Total Protein Albumin LDL Cholesterol Direct HDL Cholesterol Urine WBC (Auto) Salicylates Hepatitis C Antibody 05/14/17 05/15/17 05/15/17 23:00 03:45 03:45 WBC 18.3 H RBC 3.42 L Hgb Hct MCV 105 H MCH 34 H RDW 23.0 H Lymph % (Auto) 10.4 L [place] % (Auto) 7.7 H Lymph # [place] # 1.4 H Baso # Seg Neutrophils % 79.5 H Seg Neuts % (Manual) Lymphocytes % (Manual) Monocytes % (Manual) Nucleated RBC % Seg Neutrophils # 14.6 H Seg Neutrophils # Man Lymphocytes # (Manual) Monocytes # (Manual) PT INR POC ABG pH POC ABG pCO2 POC ABG pO2 Sodium 132 L Potassium Chloride 88.4 L Carbon Dioxide BUN 29 H Creatinine 2.8 H Glucose 310 H POC Glucose 264 H Lactic Acid Calcium AST 54 H ALT 111 H Alkaline Phosphatase 318 H Total Creatine Kinase CK-MB (CK-2) Rel Index Troponin T C-Reactive Protein Total Protein Albumin 3.7 L LDL Cholesterol Direct HDL Cholesterol Urine WBC (Auto) Salicylates Hepatitis C Antibody 05/15/17 05/15/17 05/15/17 07:36 12:14 12:15 WBC RBC Hgb Hct MCV MCH RDW Lymph % (Auto) [place] % (Auto) Lymph # [place] # Baso # Seg Neutrophils % Seg Neuts % (Manual) Lymphocytes % (Manual) Monocytes % (Manual) Nucleated RBC % Seg Neutrophils # Seg Neutrophils # Man Lymphocytes # (Manual) Monocytes # (Manual) PT INR POC ABG pH POC ABG pCO2 POC ABG pO2 Sodium Potassium Chloride Carbon Dioxide BUN Creatinine Glucose POC Glucose 253 H > 500 H Lactic Acid Calcium AST ALT Alkaline Phosphatase Total Creatine Kinase CK-MB (CK-2) Rel Index Troponin T C-Reactive Protein 14.70 H Total Protein Albumin LDL Cholesterol Direct HDL Cholesterol Urine WBC (Auto) Salicylates Hepatitis C Antibody 05/15/17 05/15/17 05/15/17 12:15 15:43 22:26 WBC RBC Hgb Hct MCV MCH RDW Lymph % (Auto) [place] % (Auto) Lymph # [place] # Baso # Seg Neutrophils % Seg Neuts % (Manual) Lymphocytes % (Manual) Monocytes % (Manual) Nucleated RBC % Seg Neutrophils # Seg Neutrophils # Man Lymphocytes # (Manual) Monocytes # (Manual) PT INR POC ABG pH POC ABG pCO2 POC ABG pO2 Sodium Potassium Chloride Carbon Dioxide BUN Creatinine Glucose 336 H POC Glucose 288 H 243 H Lactic Acid Calcium AST ALT Alkaline Phosphatase Total Creatine Kinase CK-MB (CK-2) Rel Index Troponin T C-Reactive Protein Total Protein Albumin LDL Cholesterol Direct HDL Cholesterol Urine WBC (Auto) Salicylates Hepatitis C Antibody 05/16/17 05/16/17 04:00 04:00 WBC 23.5 H RBC 3.25 L Hgb Hct MCV 106 H MCH 33 H RDW 23.2 H Lymph % (Auto) [place] % (Auto) Lymph # [place] # Baso # Seg Neutrophils % Seg Neuts % (Manual) Lymphocytes % (Manual) 9.0 L Monocytes % (Manual) 14.0 H Nucleated RBC % Seg Neutrophils # Seg Neutrophils # Man 15.3 H Lymphocytes # (Manual) Monocytes # (Manual) 3.3 H PT INR POC ABG pH POC ABG pCO2 POC ABG pO2 Sodium Potassium Chloride 91.5 L Carbon Dioxide BUN 48 H Creatinine 4.5 H D Glucose POC Glucose Lactic Acid Calcium AST ALT Alkaline Phosphatase Total Creatine Kinase CK-MB (CK-2) Rel Index Troponin T C-Reactive Protein Total Protein Albumin LDL Cholesterol Direct HDL Cholesterol Urine WBC (Auto) Salicylates Hepatitis C Antibody Chest x-ray: report reviewed, image reviewed CT scan - chest: report reviewed, image reviewed
[2017-05-16] MEDS: ZOFRAN IV PRN (17:32)
[2017-05-17] MEDS: DESYREL PO SCH ×2 (01:01→21:42)
[2017-05-17] MEDS: PROVENTIL IH SCH ×4 (02:04→20:17)
[2017-05-17] MEDS: LEVOPHED 8 MG in NACL 0.9% 250ML 242 ML IV SCH (04:02)
[2017-05-17 05:23] LABS: Basophils # (Auto) 0.2 K/mm3 (0.0-0.1); Basophils % (Auto) 1.2 % (0.0-1.8); Eosinophils # (Auto) 0.1 K/mm3 (0.0-0.4); Eosinophils % (Auto) 0.8 % (0.0-4.3); Hematocrit 32.5 % (30.3-42.9); Hemoglobin 10.2 gm/dl (10.1-14.3); Lymphocytes # (Auto) 0.6 K/mm3 (1.2-5.4); Lymphocytes % (Auto) 3.8 % (13.4-35.0); Mean Corpuscular HGB Conc 32 % (30-34); Mean Corpuscular Hemoglobin 33 pg (28-32); Mean Corpuscular Volume 106 fl (79-97); Monocytes # (Auto) 1.1 K/mm3 (0.0-0.8); Monocytes % (Auto) 6.7 % (0.0-7.3); Platelet Count 272 K/mm3 (140-440); Red Blood Count 3.08 M/mm3 (3.65-5.03)
[2017-05-17 05:29] LABS: Red Cell Distribution Width 23.3 % (13.2-15.2)
[2017-05-17 05:40] LABS: INR 1.06 (0.87-1.13)
[2017-05-17 05:41] LABS: Partial Thromboplastin Time 27.5 Sec. (24.2-36.6)
[2017-05-17 05:43] LABS: Albumin 3.5 g/dL (3.9-5); Calcium 8.9 mg/dL (8.4-10.2)
[2017-05-17] MEDS: NEURONTIN PO SCH ×3 (08:19→21:42)
[2017-05-17] MEDS: NOVOLOG SUB-Q SCH ×3 (08:19→18:07)
[2017-05-17] MEDS: RENVELA PO SCH ×3 (08:30→18:03)
--- NOTE | 2017-05-17 09:21 | Progress Note ---
Assessment and Plan Assessment: Acute on chronic systolic heart failurimproving [facility] - echo 04/17/2017 showed EF 40% Elevated troponins - ECG with NAF; pt with no c/o chest pain; currently nonspecific in setting of acutely decompensated HF, sepsis, and ESRD Acute respiratory failure - s/p extubation AMS - head CT with NAF MRSA pneumonia/atelectasis Septic shock ESRD on HD - TTS HD schedule CAD, MO with PCI of mid LAD and mid circ at [facility] (01/20/2016), NSTEMI with subacute left circ and LAD stent thrombosis s/p stent of left circ and balloon angioplasty alone of LAD (02/22/2016) DM H/o HTN - with hypotension since admission HLP Anemia Hepatitis C Moderate to severe TR Pulmonary HTN - RVSP 57.9mmHg Plan: Volume optimization per nephrology. Wean pressors as tolerated. No indication for repeat echo given recent echo 04/17/2017. No BB, ACEI/ARB, and/or anti-hypertensives at this time given persistent hypotension since admission. The patient has been seen in conjunction with Dr. YOGI Monreal who agrees with the assessment and plan of care. Subjective Date of service: 05/17/17 Principal diagnosis: MRSA pneumonia, shock,sepsis,ESRD Interval history: pt resting in bed, A&O, no current complaints. Remains on levophed gtt. Objective Last Vital Signs Temp 98.6 F 05/17/17 08:00 Pulse 101 H 05/17/17 08:30 Resp 21 05/17/17 08:30 BP 98/49 05/17/17 08:30 Pulse Ox 91 05/17/17 08:30 - Physical Examination General: No Apparent Distress HEENT: Positive: PERRL, Normocephaly, Mucus Membranes Moist Neck: Positive: neck supple, trachea midline Cardiac: Positive: Reg Rate and Rhythm, S1/S2 Lungs: Positive: Decreased Breath Sounds, Rhonchi Neuro: Positive: Grossly Intact Abdomen: Positive: Soft. Negative: Tender Skin: Positive: Clear. Negative: Rash, Wound Musculoskeletal: No Fluid Collection, No Pain, Normal Range of Motion Extremities: Absent: edema - Labs and Meds Cardiac Enzymes 05/17/17 Range/Units 04:45 AST 22 (5-40) units/L Coagulation 05/17/17 Range/Units 04:45 PT 14.4 (12.2-14.9) Sec. INR 1.06 (0.87-1.13) APTT 27.5 (24.2-36.6) Sec. CBC 05/17/17 Range/Units 04:45 WBC 16.7 H (4.5-11.0) K/mm3 RBC 3.08 L (3.65-5.03) M/mm3 Hgb 10.2 (10.1-14.3) gm/dl Hct 32.5 (30.3-42.9) % Plt Count 272 (140-440) K/mm3 Lymph # 0.6 L (1.2-5.4) K/mm3 Barton # 1.1 H (0.0-0.8) K/mm3 Eos # 0.1 (0.0-0.4) K/mm3 Baso # 0.2 H (0.0-0.1) K/mm3 Comprehensive Metabolic Panel 05/17/17 Range/Units 04:45 Sodium 134 L (137-145) mmol/L Potassium 4.8 (3.6-5.0) mmol/L Chloride 89.3 L (98-107) mmol/L Carbon Dioxide 21 L (22-30) mmol/L BUN 60 H (7-17) mg/dL Creatinine 6.1 H (0.7-1.2) mg/dL Glucose 87 (65-100) mg/dL Calcium 8.9 (8.4-10.2) mg/dL AST 22 (5-40) units/L ALT 48 (7-56) units/L Alkaline Phosphatase 226 H (35-129) units/L Total Protein 7.6 (6.3-8.2) g/dL Albumin 3.5 L (3.9-5) g/dL - Imaging and Cardiology EKG: report reviewed, image reviewed Cardiac cath: report reviewed (MO and PCI of mid LAD and mid circ on 01/20/2016; subacute left circ and LAD stent thrombosis s/p stent of left circ and balloon angioplasty alone of LAD (02/22/2016)) - EKG Sinus rhythms and dysrhythmias: sinus rhythm AV and intraventricular conduction: right bundle branch block (incomplete)
--- NOTE | 2017-05-17 09:53 | XRay Report ---
AP CHEST: HISTORY: Shortness of breath Mild improvement in the patchy infiltrates or atelectasis in the lower lung zones is demonstrated since 05/12/17. There is mild cardiomegaly and pulmonary venous congestion. No consolidation, large pleural effusion or pneumothorax. Left venous catheter terminates near the cavoatrial junction. The bony structures are grossly intact. IMPRESSION: Improvement in the bilateral infiltrates or atelectatic changes. Mild cardiomegaly and pulmonary venous congestion, stable.
--- NOTE | 2017-05-17 10:29 | Progress Note ---
Assessment and Plan 56 y/o female with acute respiratory failure, most likely secondary to volume overload and altered mental status, exact etiology unknown, now with persistent hypotension of unknown etiology. 1. Will start Midodrine 10 TID 2. Continue supplemental O2 3. Bipap QHS, and PRN Subjective Date of service: 05/17/17 Principal diagnosis: MRSA pneumonia, shock,sepsis,ESRD Interval history: currently on nasal cannula. no distress. Taken off bipap this am. Still hypotensive and on 9 of levophed. tolerating PO. States that her breathing is tired. Sat is good at 95% Objective Vital Signs - 12hr 05/16/17 05/16/17 05/16/17 22:30 22:45 23:00 Temperature Pulse Rate 96 H 97 H 95 H Pulse Rate [ Anterior Bilateral Throughout] Respiratory 25 H 25 H 22 Rate Respiratory Rate [Anterior Bilateral Throughout] Blood Pressure 107/61 104/61 79/40 O2 Sat by Pulse 93 100 94 Oximetry 05/16/17 05/16/17 05/16/17 23:16 23:30 23:45 Temperature Pulse Rate 96 H 95 H 97 H Pulse Rate [ Anterior Bilateral Throughout] Respiratory 28 H 29 H 19 Rate Respiratory Rate [Anterior Bilateral Throughout] Blood Pressure 101/62 104/57 97/59 O2 Sat by Pulse 95 95 94 Oximetry 05/16/17 05/16/17 05/17/17 23:58 23:59 00:00 Temperature 98.8 F Pulse Rate 95 H 97 H Pulse Rate [ Anterior Bilateral Throughout] Respiratory 25 H 24 Rate Respiratory Rate [Anterior Bilateral Throughout] Blood Pressure 97/59 101/62 O2 Sat by Pulse 96 Oximetry 05/17/17 05/17/17 05/17/17 00:12 00:15 00:30 Temperature Pulse Rate 96 H 96 H 96 H Pulse Rate [ Anterior Bilateral Throughout] Respiratory 28 H 21 29 H Rate Respiratory Rate [Anterior Bilateral Throughout] Blood Pressure 101/62 96/59 97/62 O2 Sat by Pulse 98 Oximetry 05/17/17 05/17/17 05/17/17 00:45 01:00 01:15 Temperature Pulse Rate 94 H 94 H 98 H Pulse Rate [ Anterior Bilateral Throughout] Respiratory 23 26 H 25 H Rate Respiratory Rate [Anterior Bilateral Throughout] Blood Pressure 90/60 104/62 112/69 O2 Sat by Pulse 96 Oximetry 05/17/17 05/17/1717 01:30 01:45 02:00 Temperature Pulse Rate 100 H 99 H 100 H Pulse Rate [ 94 H Anterior Bilateral Throughout] Respiratory 25 H 24 27 H Rate Respiratory 27 H Rate [Anterior Bilateral Throughout] Blood Pressure 108/60 89/52 112/69 O2 Sat by Pulse 94 94 Oximetry 05/17/17 05/17/17 05/17/17 02:15 02:30 02:31 Temperature Pulse Rate 99 H 99 H Pulse Rate [ 96 H Anterior Bilateral Throughout] Respiratory 29 H 16 Rate Respiratory 28 H Rate [Anterior Bilateral Throughout] Blood Pressure 109/70 101/66 O2 Sat by Pulse 96 94 Oximetry 05/17/17 05/17/17 05/17/17 02:45 03:00 03:15 Temperature Pulse Rate 96 H 95 H 93 H Pulse Rate [ Anterior Bilateral Throughout] Respiratory 28 H 29 H 28 H Rate Respiratory Rate [Anterior Bilateral Throughout] Blood Pressure 96/64 102/59 98/57 O2 Sat by Pulse 95 95 95 Oximetry 05/17/17 05/17/17 05/17/17 03:30 03:45 04:00 Temperature 99 F Pulse Rate 94 H 94 H 93 H Pulse Rate [ Anterior Bilateral Throughout] Respiratory 26 H 18 29 H Rate Respiratory Rate [Anterior Bilateral Throughout] Blood Pressure 93/59 97/59 98/59 O2 Sat by Pulse 95 94 96 Oximetry 05/17/17 05/17/17 05/17/17 04:15 04:30 04:45 Temperature Pulse Rate 93 H 94 H 94 H Pulse Rate [ Anterior Bilateral Throughout] Respiratory 20 28 H 26 H Rate Respiratory Rate [Anterior Bilateral Throughout] Blood Pressure 88/60 87/51 93/55 O2 Sat by Pulse 96 97 Oximetry 05/17/17 05/17/17 05/17/17 05:00 05:15 05:30 Temperature Pulse Rate 94 H 96 H 96 H Pulse Rate [ Anterior Bilateral Throughout] Respiratory 26 H 25 H 27 H Rate Respiratory Rate [Anterior Bilateral Throughout] Blood Pressure 92/50 91/51 94/53 O2 Sat by Pulse 93 95 Oximetry 05/17/17 05/17/17 05/17/17 05:45 06:00 06:15 Temperature Pulse Rate 97 H 97 H 98 H Pulse Rate [ Anterior Bilateral Throughout] Respiratory 26 H 25 H 27 H Rate Respiratory Rate [Anterior Bilateral Throughout] Blood Pressure 91/56 94/57 82/46 O2 Sat by Pulse 97 98 97 Oximetry 05/17/17 05/17/17 05/17/17 06:30 06:45 07:00 Temperature Pulse Rate 99 H 100 H 100 H Pulse Rate [ Anterior Bilateral Throughout] Respiratory 28 H 26 H 26 H Rate Respiratory Rate [Anterior Bilateral Throughout] Blood Pressure 93/54 100/49 104/59 O2 Sat by Pulse 96 Oximetry 05/17/17 05/17/17 05/17/17 07:15 07:30 07:45 Temperature Pulse Rate 100 H 100 H 100 H Pulse Rate [ Anterior Bilateral Throughout] Respiratory 26 H 39 H 28 H Rate Respiratory Rate [Anterior Bilateral Throughout] Blood Pressure 107/56 93/49 100/55 O2 Sat by Pulse Oximetry 05/17/17 05/17/17 05/17/17 08:00 08:15 08:30 Temperature 98.6 F Pulse Rate 99 H 100 H 101 H Pulse Rate [ Anterior Bilateral Throughout] Respiratory 32 H 25 H 21 Rate Respiratory Rate [Anterior Bilateral Throughout] Blood Pressure 95/37 98/49 98/49 O2 Sat by Pulse 98 98 91 Oximetry Constitutional: no acute distress, alert ENT: oropharynx moist Neck: supple Effort: normal Ascultation: Bilateral: clear, diminished breath sounds Percussion: Bilateral: not dull Cardiovascular: regular rate and rhythm (no mrg) Gastrointestinal: normoactive bowel sounds, soft, non-tender Integumentary: other (Patsy left-sided face) Extremities: no cyanosis, no edema Neurologic: normal mental status, non-focal exam, pupils equal and round, CN II- XII normal, motor strength normal and Psychiatric: mood appropriate, affect normal CBC and BMP: 05/17/17 04:45 05/17/17 04:45 ABG, PT/INR, D-dimer: ABG POC ABG pH 7.450 (7.35-7.45) 05/12/17 13:10 POC ABG pCO2 36.7 (35-45) 05/12/17 13:10 POC ABG pO2 66 (80-105) L 05/12/17 13:10 POC ABG HCO3 25.5 05/12/17 13:10 POC ABG Total CO2 27 05/12/17 13:10 POC ABG O2 Sat 94 05/12/17 13:10 PT/INR, D-dimer PT 14.4 Sec. (12.2-14.9) 05/17/17 04:45 INR 1.06 (0.87-1.13) 05/17/17 04:45 Abnormal lab findings: Abnormal Labs 05/08/17 05/08/17 05/08/17 21:25 21:25 21:25 WBC RBC 2.55 L Hgb 8.9 L Hct 28.1 L MCV 111 H MCH 35 H RDW 25.4 H Lymph % (Auto) Gre[place] % (Auto) Lymph # Gre[place] # Baso # Seg Neutrophils % Seg Neuts % (Manual) 92.0 H Lymphocytes % (Manual) 6.0 L Monocytes % (Manual) Nucleated RBC % Seg Neutrophils # Seg Neutrophils # Man 9.3 H Lymphocytes # (Manual) 0.6 L Monocytes # (Manual) PT 15.2 H INR 1.14 H POC ABG pH POC ABG pCO2 POC ABG pO2 Sodium Potassium Chloride Carbon Dioxide BUN Creatinine Glucose POC Glucose Lactic Acid 2.50 H* Calcium AST ALT Alkaline Phosphatase Total Creatine Kinase CK-MB (CK-2) Rel Index Troponin T C-Reactive Protein Total Protein Albumin LDL Cholesterol Direct HDL Cholesterol Urine WBC (Auto) Salicylates Hepatitis C Antibody 05/08/17 05/08/17 05/08/17 21:35 22:04 22:42 WBC RBC Hgb Hct MCV MCH RDW Lymph % (Auto) [place] % (Auto) Lymph # [place] # Baso # Seg Neutrophils % Seg Neuts % (Manual) Lymphocytes % (Manual) Monocytes % (Manual) Nucleated RBC % Seg Neutrophils # Seg Neutrophils # Man Lymphocytes # (Manual) Monocytes # (Manual) PT INR POC ABG pH 7.271 L POC ABG pCO2 56.5 H POC ABG pO2 30 L Sodium Potassium Chloride 107.8 H Carbon Dioxide BUN 22 H Creatinine 2.6 H Glucose 202 H POC Glucose Lactic Acid Calcium 7.3 L AST ALT Alkaline Phosphatase 258 H Total Creatine Kinase CK-MB (CK-2) Rel Index Troponin T C-Reactive Protein Total Protein 5.2 L Albumin 2.9 L LDL Cholesterol Direct HDL Cholesterol Urine WBC (Auto) Salicylates < 0.3 L Hepatitis C Antibody 05/08/17 05/09/17 05/09/17 Unknown 00:24 06:00 WBC RBC Hgb Hct MCV MCH RDW Lymph % (Auto) Gre[place] % (Auto) Lymph # [place] # Baso # Seg Neutrophils % Seg Neuts % (Manual) Lymphocytes % (Manual) Monocytes % (Manual) Nucleated RBC % Seg Neutrophils # Seg Neutrophils # Man Lymphocytes # (Manual) Monocytes # (Manual) PT INR POC ABG pH 7.283 L POC ABG pCO2 49.9 H POC ABG pO2 249 H Sodium Potassium Chloride Carbon Dioxide BUN Creatinine Glucose POC Glucose Lactic Acid Calcium AST ALT Alkaline Phosphatase Total Creatine Kinase 19 L CK-MB (CK-2) Rel Index 11.0 H Troponin T 0.612 H* C-Reactive Protein Total Protein Albumin LDL Cholesterol Direct 21 L HDL Cholesterol 27 L Urine WBC (Auto) 16.0 H Salicylates Hepatitis C Antibody 05/09/17 05/09/17 05/09/17 06:00 06:00 08:52 WBC 11.7 H RBC 2.67 L Hgb 9.3 L Hct 30.0 L MCV 112 H MCH 35 H RDW 24.4 H Lymph % (Auto) [place] % (Auto) Lymph # [place] # Baso # Seg Neutrophils % Seg Neuts % (Manual) Lymphocytes % (Manual) Monocytes % (Manual) Nucleated RBC % Seg Neutrophils # Seg Neutrophils # Man Lymphocytes # (Manual) Monocytes # (Manual) PT INR POC ABG pH 7.323 L POC ABG pCO2 POC ABG pO2 143 H Sodium Potassium Chloride Carbon Dioxide BUN 24 H Creatinine 2.9 H Glucose 172 H POC Glucose Lactic Acid Calcium 7.7 L AST ALT Alkaline Phosphatase Total Creatine Kinase CK-MB (CK-2) Rel Index Troponin T C-Reactive Protein Total Protein Albumin LDL Cholesterol Direct HDL Cholesterol Urine WBC (Auto) Salicylates Hepatitis C Antibody 05/09/17 05/09/17 05/11/17 14:00 17:00 06:09 WBC 11.4 H RBC 2.66 L Hgb 9.1 L Hct 29.3 L MCV 110 H MCH 34 H RDW 23.1 H Lymph % (Auto) 4.2 L [place] % (Auto) 12.7 H Lymph # 0.5 L [place] # 1.4 H Baso # Seg Neutrophils % 82.5 H Seg Neuts % (Manual) Lymphocytes % (Manual) Monocytes % (Manual) Nucleated RBC % Seg Neutrophils # 9.4 H Seg Neutrophils # Man Lymphocytes # (Manual) Monocytes # (Manual) PT INR POC ABG pH POC ABG pCO2 POC ABG pO2 Sodium Potassium Chloride Carbon Dioxide BUN Creatinine Glucose POC Glucose Lactic Acid Calcium AST ALT Alkaline Phosphatase Total Creatine Kinase 24 L CK-MB (CK-2) Rel Index 9.1 H Troponin T 0.654 H* C-Reactive Protein Total Protein Albumin LDL Cholesterol Direct HDL Cholesterol Urine WBC (Auto) Salicylates Hepatitis C Antibody Reactive A 05/11/17 05/11/17 05/11/17 06:09 08:20 11:34 WBC RBC Hgb Hct MCV MCH RDW Lymph % (Auto) [place] % (Auto) Lymph # [place] # Baso # Seg Neutrophils % Seg Neuts % (Manual) Lymphocytes % (Manual) Monocytes % (Manual) Nucleated RBC % Seg Neutrophils # Seg Neutrophils # Man Lymphocytes # (Manual) Monocytes # (Manual) PT INR POC ABG pH POC ABG pCO2 POC ABG pO2 Sodium Potassium Chloride 95.6 L Carbon Dioxide 20 L BUN 24 H Creatinine 3.4 H Glucose 134 H POC Glucose 154 H 149 H Lactic Acid Calcium AST ALT Alkaline Phosphatase Total Creatine Kinase CK-MB (CK-2) Rel Index Troponin T C-Reactive Protein Total Protein Albumin LDL Cholesterol Direct HDL Cholesterol Urine WBC (Auto) Salicylates Hepatitis C Antibody 05/11/17 05/11/17 05/11/17 15:30 16:27 21:58 WBC RBC Hgb Hct MCV MCH RDW Lymph % (Auto) [place] % (Auto) Lymph # [place] # Baso # Seg Neutrophils % Seg Neuts % (Manual) Lymphocytes % (Manual) Monocytes % (Manual) Nucleated RBC % Seg Neutrophils # Seg Neutrophils # Man Lymphocytes # (Manual) Monocytes # (Manual) PT INR POC ABG pH POC ABG pCO2 POC ABG pO2 Sodium Potassium Chloride Carbon Dioxide BUN Creatinine Glucose POC Glucose 163 H 199 H Lactic Acid Calcium AST ALT Alkaline Phosphatase Total Creatine Kinase CK-MB (CK-2) Rel Index Troponin T C-Reactive Protein 44.70 H Total Protein Albumin LDL Cholesterol Direct HDL Cholesterol Urine WBC (Auto) Salicylates Hepatitis C Antibody 05/12/17 05/12/17 05/12/17 08:42 13:10 14:10 WBC RBC Hgb Hct MCV MCH RDW Lymph % (Auto) [place] % (Auto) Lymph # [place] # Baso # Seg Neutrophils % Seg Neuts % (Manual) Lymphocytes % (Manual) Monocytes % (Manual) Nucleated RBC % Seg Neutrophils # Seg Neutrophils # Man Lymphocytes # (Manual) Monocytes # (Manual) PT INR POC ABG pH POC ABG pCO2 POC ABG pO2 66 L Sodium Potassium Chloride Carbon Dioxide BUN Creatinine Glucose POC Glucose 190 H 162 H Lactic Acid Calcium AST ALT Alkaline Phosphatase Total Creatine Kinase CK-MB (CK-2) Rel Index Troponin T C-Reactive Protein Total Protein Albumin LDL Cholesterol Direct HDL Cholesterol Urine WBC (Auto) Salicylates Hepatitis C Antibody 05/12/17 05/12/17 05/12/17 15:46 16:05 21:42 WBC RBC Hgb Hct MCV MCH RDW Lymph % (Auto) [place] % (Auto) Lymph # [place] # Baso # Seg Neutrophils % Seg Neuts % (Manual) Lymphocytes % (Manual) Monocytes % (Manual) Nucleated RBC % Seg Neutrophils # Seg Neutrophils # Man Lymphocytes # (Manual) Monocytes # (Manual) PT INR POC ABG pH POC ABG pCO2 POC ABG pO2 Sodium Potassium Chloride Carbon Dioxide BUN Creatinine Glucose POC Glucose 153 H 153 H Lactic Acid 2.60 H* Calcium AST ALT Alkaline Phosphatase Total Creatine Kinase CK-MB (CK-2) Rel Index Troponin T C-Reactive Protein Total Protein Albumin LDL Cholesterol Direct HDL Cholesterol Urine WBC (Auto) Salicylates Hepatitis C Antibody 05/13/17 05/13/17 05/13/17 05:12 05:30 05:30 WBC 22.0 H RBC 3.02 L Hgb 9.9 L Hct MCV 105 H MCH 33 H RDW 22.9 H Lymph % (Auto) [place] % (Auto) Lymph # [place] # Baso # Seg Neutrophils % Seg Neuts % (Manual) 89.0 H Lymphocytes % (Manual) 6.0 L Monocytes % (Manual) Nucleated RBC % 1.0 H Seg Neutrophils # Seg Neutrophils # Man 19.6 H Lymphocytes # (Manual) Monocytes # (Manual) 0.9 H PT INR POC ABG pH POC ABG pCO2 POC ABG pO2 Sodium Potassium Chloride 90.8 L Carbon Dioxide 21 L BUN 28 H Creatinine 3.1 H Glucose 172 H POC Glucose 182 H Lactic Acid Calcium AST ALT Alkaline Phosphatase Total Creatine Kinase CK-MB (CK-2) Rel Index Troponin T C-Reactive Protein Total Protein Albumin LDL Cholesterol Direct HDL Cholesterol Urine WBC (Auto) Salicylates Hepatitis C Antibody 05/13/17 05/13/17 05/13/17 11:52 18:01 23:31 WBC RBC Hgb Hct MCV MCH RDW Lymph % (Auto) [place] % (Auto) Lymph # [place] # Baso # Seg Neutrophils % Seg Neuts % (Manual) Lymphocytes % (Manual) Monocytes % (Manual) Nucleated RBC % Seg Neutrophils # Seg Neutrophils # Man Lymphocytes # (Manual) Monocytes # (Manual) PT INR POC ABG pH POC ABG pCO2 POC ABG pO2 Sodium Potassium Chloride Carbon Dioxide BUN Creatinine Glucose POC Glucose 185 H 216 H 281 H Lactic Acid Calcium AST ALT Alkaline Phosphatase Total Creatine Kinase CK-MB (CK-2) Rel Index Troponin T C-Reactive Protein Total Protein Albumin LDL Cholesterol Direct HDL Cholesterol Urine WBC (Auto) Salicylates Hepatitis C Antibody 05/14/17 05/14/17 05/14/17 05:43 06:10 06:10 WBC 19.6 H RBC 3.61 L Hgb Hct MCV 104 H MCH 34 H RDW 23.4 H Lymph % (Auto) 8.6 L [place] % (Auto) Lymph # [place] # 1.3 H Baso # 0.2 H Seg Neutrophils % 82.5 H Seg Neuts % (Manual) Lymphocytes % (Manual) Monocytes % (Manual) Nucleated RBC % Seg Neutrophils # 16.2 H Seg Neutrophils # Man Lymphocytes # (Manual) Monocytes # (Manual) PT INR POC ABG pH POC ABG pCO2 POC ABG pO2 Sodium Potassium 3.4 L Chloride 89.1 L Carbon Dioxide BUN 32 H Creatinine 3.0 H Glucose 224 H POC Glucose 215 H Lactic Acid Calcium AST 85 H ALT 162 H Alkaline Phosphatase 347 H Total Creatine Kinase CK-MB (CK-2) Rel Index Troponin T C-Reactive Protein Total Protein 8.5 H Albumin LDL Cholesterol Direct HDL Cholesterol Urine WBC (Auto) Salicylates Hepatitis C Antibody 05/14/17 05/14/17 05/14/17 08:32 11:26 16:42 WBC RBC Hgb Hct MCV MCH RDW Lymph % (Auto) [place] % (Auto) Lymph # [place] # Baso # Seg Neutrophils % Seg Neuts % (Manual) Lymphocytes % (Manual) Monocytes % (Manual) Nucleated RBC % Seg Neutrophils # Seg Neutrophils # Man Lymphocytes # (Manual) Monocytes # (Manual) PT INR POC ABG pH POC ABG pCO2 POC ABG pO2 Sodium Potassium Chloride Carbon Dioxide BUN Creatinine Glucose POC Glucose 204 H 182 H 310 H Lactic Acid Calcium AST ALT Alkaline Phosphatase Total Creatine Kinase CK-MB (CK-2) Rel Index Troponin T C-Reactive Protein Total Protein Albumin LDL Cholesterol Direct HDL Cholesterol Urine WBC (Auto) Salicylates Hepatitis C Antibody 05/14/17 05/15/17 05/15/17 23:00 03:45 03:45 WBC 18.3 H RBC 3.42 L Hgb Hct MCV 105 H MCH 34 H RDW 23.0 H Lymph % (Auto) 10.4 L [place] % (Auto) 7.7 H Lymph # [place] # 1.4 H Baso # Seg Neutrophils % 79.5 H Seg Neuts % (Manual) Lymphocytes % (Manual) Monocytes % (Manual) Nucleated RBC % Seg Neutrophils # 14.6 H Seg Neutrophils # Man Lymphocytes # (Manual) Monocytes # (Manual) PT INR POC ABG pH POC ABG pCO2 POC ABG pO2 Sodium 132 L Potassium Chloride 88.4 L Carbon Dioxide BUN 29 H Creatinine 2.8 H Glucose 310 H POC Glucose 264 H Lactic Acid Calcium AST 54 H ALT 111 H Alkaline Phosphatase 318 H Total Creatine Kinase CK-MB (CK-2) Rel Index Troponin T C-Reactive Protein Total Protein Albumin 3.7 L LDL Cholesterol Direct HDL Cholesterol Urine WBC (Auto) Salicylates Hepatitis C Antibody 05/15/17 05/15/17 05/15/17 07:36 12:14 12:15 WBC RBC Hgb Hct MCV MCH RDW Lymph % (Auto) [place] % (Auto) Lymph # [place] # Baso # Seg Neutrophils % Seg Neuts % (Manual) Lymphocytes % (Manual) Monocytes % (Manual) Nucleated RBC % Seg Neutrophils # Seg Neutrophils # Man Lymphocytes # (Manual) Monocytes # (Manual) PT INR POC ABG pH POC ABG pCO2 POC ABG pO2 Sodium Potassium Chloride Carbon Dioxide BUN Creatinine Glucose POC Glucose 253 H > 500 H Lactic Acid Calcium AST ALT Alkaline Phosphatase Total Creatine Kinase CK-MB (CK-2) Rel Index Troponin T C-Reactive Protein 14.70 H Total Protein Albumin LDL Cholesterol Direct HDL Cholesterol Urine WBC (Auto) Salicylates Hepatitis C Antibody 05/15/17 05/15/17 05/15/17 12:15 15:43 22:26 WBC RBC Hgb Hct MCV MCH RDW Lymph % (Auto) [place] % (Auto) Lymph # [place] # Baso # Seg Neutrophils % Seg Neuts % (Manual) Lymphocytes % (Manual) Monocytes % (Manual) Nucleated RBC % Seg Neutrophils # Seg Neutrophils # Man Lymphocytes # (Manual) Monocytes # (Manual) PT INR POC ABG pH POC ABG pCO2 POC ABG pO2 Sodium Potassium Chloride Carbon Dioxide BUN Creatinine Glucose 336 H POC Glucose 288 H 243 H Lactic Acid Calcium AST ALT Alkaline Phosphatase Total Creatine Kinase CK-MB (CK-2) Rel Index Troponin T C-Reactive Protein Total Protein Albumin LDL Cholesterol Direct HDL Cholesterol Urine WBC (Auto) Salicylates Hepatitis C Antibody 05/16/17 05/16/17 05/16/17 04:00 04:00 07:26 WBC 23.5 H RBC 3.25 L Hgb Hct MCV 106 H MCH 33 H RDW 23.2 H Lymph % (Auto) [place] % (Auto) Lymph # [place] # Baso # Seg Neutrophils % Seg Neuts % (Manual) Lymphocytes % (Manual) 9.0 L Monocytes % (Manual) 14.0 H Nucleated RBC % Seg Neutrophils # Seg Neutrophils # Man 15.3 H Lymphocytes # (Manual) Monocytes # (Manual) 3.3 H PT INR POC ABG pH POC ABG pCO2 POC ABG pO2 Sodium Potassium Chloride 91.5 L Carbon Dioxide BUN 48 H Creatinine 4.5 H D Glucose POC Glucose 107 H Lactic Acid Calcium AST ALT Alkaline Phosphatase Total Creatine Kinase CK-MB (CK-2) Rel Index Troponin T C-Reactive Protein Total Protein Albumin LDL Cholesterol Direct HDL Cholesterol Urine WBC (Auto) Salicylates Hepatitis C Antibody 05/16/17 05/16/17 05/16/17 11:57 17:14 21:30 WBC RBC Hgb Hct MCV MCH RDW Lymph % (Auto) [place] % (Auto) Lymph # [place] # Baso # Seg Neutrophils % Seg Neuts % (Manual) Lymphocytes % (Manual) Monocytes % (Manual) Nucleated RBC % Seg Neutrophils # Seg Neutrophils # Man Lymphocytes # (Manual) Monocytes # (Manual) PT INR POC ABG pH POC ABG pCO2 POC ABG pO2 Sodium Potassium Chloride Carbon Dioxide BUN Creatinine Glucose POC Glucose 190 H 200 H 152 H Lactic Acid Calcium AST ALT Alkaline Phosphatase Total Creatine Kinase CK-MB (CK-2) Rel Index Troponin T C-Reactive Protein Total Protein Albumin LDL Cholesterol Direct HDL Cholesterol Urine WBC (Auto) Salicylates Hepatitis C Antibody 05/17/17 05/17/17 04:45 04:45 WBC 16.7 H RBC 3.08 L Hgb Hct MCV 106 H MCH 33 H RDW 23.3 H Lymph % (Auto) 3.8 L [place] % (Auto) Lymph # 0.6 L [place] # 1.1 H Baso # 0.2 H Seg Neutrophils % 87.5 H Seg Neuts % (Manual) Lymphocytes % (Manual) Monocytes % (Manual) Nucleated RBC % Seg Neutrophils # 14.6 H Seg Neutrophils # Man Lymphocytes # (Manual) Monocytes # (Manual) PT INR POC ABG pH POC ABG pCO2 POC ABG pO2 Sodium 134 L Potassium Chloride 89.3 L Carbon Dioxide 21 L BUN 60 H Creatinine 6.1 H Glucose POC Glucose Lactic Acid Calcium AST ALT Alkaline Phosphatase 226 H Total Creatine Kinase CK-MB (CK-2) Rel Index Troponin T C-Reactive Protein Total Protein Albumin 3.5 L LDL Cholesterol Direct HDL Cholesterol Urine WBC (Auto) Salicylates Hepatitis C Antibody
--- NOTE | 2017-05-17 10:41 | Progress Note ---
Assessment and Plan Assessment: 1) Sepsis with septic shock: still pressors, unclear etiology of persistent hypotension ? adrenal insuf ? third spacing ?, leukocytosis worse during the weekend now better. Etiology most likely pneumonia. 2) Bilateral pneumonia: -tracheal asp + MRSA -CRP very high at 44 --> 14 -CT chest - ector alveolar densities, repeat CXR better 3) Resp failure - better 4) HCV / Ascitis 5) ESRD on HD 6) CAD 7) CHF with exacerbation 8) LALO - worsening on HD now 9) Recurrent falls Plan: -f/u cortisol level - result to come back tomorrow -continue zyvox day 7 of 10 -contact isolation -evaluation and precautions for recurrent falls. Thank you Dr Gutierrez for your consultation, will follow up with you. Tamera Butler MD Infectious Diseases Specialist [facility], [place] [facility] ([facility]) M [phone] O [phone] Subjective Date of service: 05/17/17 Principal diagnosis: MRSA pneumonia, shock,sepsis,ESRD Interval history: Alert. Still on levophed at 9 mcg/min, no fever. Microbiology: Blood cultures: 05/09 neg 05/16 ngtd Urine cultures: Respiratory cultures: TA 05/09 MRSA Current Antimicrobials: zyvox 05/12 Previous Antimicrobials: Ceftriaxone Objective - Exam Narrative Exam: General appearance: alert talkative in NAD Eyes: anicteric sclerae, moist conjunctivae; no lid-lag; PERRLA HENT: Atraumatic Neck: Trachea midline; supple, no thyromegaly or lymphadenopathy Lungs: ector rhonchi CV: rrr Abdomen: Soft, non-tender Extremities: No peripheral edema or extremity lymphadenopathy Skin: +multiple ecchymoses left forehead Psych: somnolent confused Neuro: somnolent Moving all extermities Lines: No CVL / PICC - Constitutional Vitals: Vital Signs Temp Pulse Resp BP Pulse Ox 98.6 F 101 H 21 98/49 91 05/17/17 08:00 05/17/17 08:30 05/17/17 08:30 05/17/17 08:30 05/17/17 08:30 Temperature -Last 24 Hours Temperature 98.6 F Temperature 99 F Temperature 98.8 F Temperature 98.6 F Temperature 97.7 F - Labs CBC & Chem 7: 05/17/17 04:45 05/17/17 04:45 Labs: Abnormal lab results 05/16/17 05/16/17 05/16/17 Range/Units 07:26 11:57 17:14 WBC (4.5-11.0) K/mm3 RBC (3.65-5.03) M/mm3 MCV (79-97) fl MCH (28-32) pg RDW (13.2-15.2) % Lymph % (Auto) (13.4-35.0) % Lymph # (1.2-5.4) K/mm3 Floyd # (0.0-0.8) K/mm3 Baso # (0.0-0.1) K/mm3 Seg Neutrophils % (40.0-70.0) % Seg Neutrophils # (1.8-7.7) K/mm3 Sodium (137-145) mmol/L Chloride (98-107) mmol/L Carbon Dioxide (22-30) mmol/L BUN (7-17) mg/dL Creatinine (0.7-1.2) mg/dL POC Glucose 107 H 190 H 200 H (70-105) Alkaline Phosphatase (35-129) units/L Albumin (3.9-5) g/dL 05/16/17 05/17/17 05/17/17 Range/Units 21:30 04:45 04:45 WBC 16.7 H (4.5-11.0) K/mm3 RBC 3.08 L (3.65-5.03) M/mm3 MCV 106 H (79-97) fl MCH 33 H (28-32) pg RDW 23.3 H (13.2-15.2) % Lymph % (Auto) 3.8 L (13.4-35.0) % Lymph # 0.6 L (1.2-5.4) K/mm3 Floyd # 1.1 H (0.0-0.8) K/mm3 Baso # 0.2 H (0.0-0.1) K/mm3 Seg Neutrophils % 87.5 H (40.0-70.0) % Seg Neutrophils # 14.6 H (1.8-7.7) K/mm3 Sodium 134 L (137-145) mmol/L Chloride 89.3 L (98-107) mmol/L Carbon Dioxide 21 L (22-30) mmol/L BUN 60 H (7-17) mg/dL Creatinine 6.1 H (0.7-1.2) mg/dL POC Glucose 152 H (70-105) Alkaline Phosphatase 226 H (35-129) units/L Albumin 3.5 L (3.9-5) g/dL
[2017-05-17] MEDS: HABITROL TD SCH (11:00)
[2017-05-17] MEDS: BABY ASPIRIN PO SCH (11:01)
[2017-05-17] MEDS: SENSIPAR PO SCH ×2 (11:01→21:42)
[2017-05-17] MEDS: ZYVOX PO SCH ×2 (11:01→21:42)
[2017-05-17] MEDS: ZOLOFT PO SCH (11:03)
[2017-05-17] MEDS: HEPARIN SUB-Q SCH ×2 (11:03→21:42)
[2017-05-17] MEDS: PROAMATINE PO SCH ×2 (11:14→21:42)
[2017-05-17] MEDS ORDERED: NACL 0.9% 100 ML IV PRN (12:11)
--- NOTE | 2017-05-17 12:34 | Progress Note ---
Assessment and Plan (1) ESRD (end stage renal disease) Current Visit: Yes Status: Chronic Plan to address problem: Hemodialysis today for UF and clearance Levophed for BP support, started on Midodrine Fluid restriction of 1 liter per day Renally dose medications Monitor I/O's Obtain daily weights Assess dialysis needs daily (2) Diabetes mellitus Current Visit: Yes Status: Acute Plan to address problem: per primary team (3) Acute hypoxemic respiratory failure Current Visit: No Status: Acute Plan to address problem: S/P intubation. (4) Hypotension Current Visit: Yes Status: Acute Plan to address problem: On Levophed drip started on Midodrine Subjective Date of service: 05/17/17 Principal diagnosis: MRSA pneumonia, shock,sepsis,ESRD Interval history: seen during HD, drowsy Objective - Vital Signs Vital signs: Vital Signs - 12hr 05/17/17 05/17/17 05/17/17 00:45 01:00 01:15 Temperature Pulse Rate 94 H 94 H 98 H Pulse Rate [ Anterior Bilateral Throughout] Respiratory 23 26 H 25 H Rate Respiratory Rate [Anterior Bilateral Throughout] Blood Pressure 90/60 104/62 112/69 O2 Sat by Pulse 96 Oximetry O2 Sat by Pulse Oximetry [ Anterior Bilateral Throughout] 05/17/17 05/17/17 05/17/17 01:30 01:45 02:00 Temperature Pulse Rate 100 H 99 H 100 H Pulse Rate [ 94 H Anterior Bilateral Throughout] Respiratory 25 H 24 27 H Rate Respiratory 27 H Rate [Anterior Bilateral Throughout] Blood Pressure 108/60 89/52 112/69 O2 Sat by Pulse 94 94 Oximetry O2 Sat by Pulse Oximetry [ Anterior Bilateral Throughout] 05/17/17 05/17/17 05/17/17 02:15 02:30 02:31 Temperature Pulse Rate 99 H 99 H Pulse Rate [ 96 H Anterior Bilateral Throughout] Respiratory 29 H 16 Rate Respiratory 28 H Rate [Anterior Bilateral Throughout] Blood Pressure 109/70 101/66 O2 Sat by Pulse 96 94 Oximetry O2 Sat by Pulse Oximetry [ Anterior Bilateral Throughout] 05/17/17 05/17/17 05/17/17 02:45 03:00 03:15 Temperature Pulse Rate 96 H 95 H 93 H Pulse Rate [ Anterior Bilateral Throughout] Respiratory 28 H 29 H 28 H Rate Respiratory Rate [Anterior Bilateral Throughout] Blood Pressure 96/64 102/59 98/57 O2 Sat by Pulse 95 95 95 Oximetry O2 Sat by Pulse Oximetry [ Anterior Bilateral Throughout] 05/17/17 05/17/17 05/17/17 03:30 03:45 04:00 Temperature 99 F Pulse Rate 94 H 94 H 93 H Pulse Rate [ Anterior Bilateral Throughout] Respiratory 26 H 18 29 H Rate Respiratory Rate [Anterior Bilateral Throughout] Blood Pressure 93/59 97/59 98/59 O2 Sat by Pulse 95 94 96 Oximetry O2 Sat by Pulse Oximetry [ Anterior Bilateral Throughout] 05/17/17 05/17/17 05/17/17 04:15 04:30 04:45 Temperature Pulse Rate 93 H 94 H 94 H Pulse Rate [ Anterior Bilateral Throughout] Respiratory 20 28 H 26 H Rate Respiratory Rate [Anterior Bilateral Throughout] Blood Pressure 88/60 87/51 93/55 O2 Sat by Pulse 96 97 Oximetry O2 Sat by Pulse Oximetry [ Anterior Bilateral Throughout] 05/17/17 05/17/17 05/17/17 05:00 05:15 05:30 Temperature Pulse Rate 94 H 96 H 96 H Pulse Rate [ Anterior Bilateral Throughout] Respiratory 26 H 25 H 27 H Rate Respiratory Rate [Anterior Bilateral Throughout] Blood Pressure 92/50 91/51 94/53 O2 Sat by Pulse 93 95 Oximetry O2 Sat by Pulse Oximetry [ Anterior Bilateral Throughout] 05/17/17 05/17/17 05/17/17 05:45 06:00 06:15 Temperature Pulse Rate 97 H 97 H 98 H Pulse Rate [ Anterior Bilateral Throughout] Respiratory 26 H 25 H 27 H Rate Respiratory Rate [Anterior Bilateral Throughout] Blood Pressure 91/56 94/57 82/46 O2 Sat by Pulse 97 98 97 Oximetry O2 Sat by Pulse Oximetry [ Anterior Bilateral Throughout] 05/17/17 05/17/17 05/17/17 06:30 06:45 07:00 Temperature Pulse Rate 99 H 100 H 100 H Pulse Rate [ Anterior Bilateral Throughout] Respiratory 28 H 26 H 26 H Rate Respiratory Rate [Anterior Bilateral Throughout] Blood Pressure 93/54 100/49 104/59 O2 Sat by Pulse 96 Oximetry O2 Sat by Pulse Oximetry [ Anterior Bilateral Throughout] 05/17/17 05/17/17 05/17/17 07:15 07:30 07:45 Temperature Pulse Rate 100 H 100 H 100 H Pulse Rate [ Anterior Bilateral Throughout] Respiratory 26 H 39 H 28 H Rate Respiratory Rate [Anterior Bilateral Throughout] Blood Pressure 107/56 93/49 100/55 O2 Sat by Pulse Oximetry O2 Sat by Pulse Oximetry [ Anterior Bilateral Throughout] 05/17/17 05/17/17 05/17/17 08:00 08:15 08:30 Temperature 98.6 F Pulse Rate 99 H 100 H 101 H Pulse Rate [ Anterior Bilateral Throughout] Respiratory 32 H 25 H 21 Rate Respiratory Rate [Anterior Bilateral Throughout] Blood Pressure 95/37 98/49 98/49 O2 Sat by Pulse 98 98 91 Oximetry O2 Sat by Pulse Oximetry [ Anterior Bilateral Throughout] 05/17/17 05/17/17 05/17/17 10:57 11:00 11:09 Temperature 98.6 F Pulse Rate 101 H Pulse Rate [ 101 H 102 H Anterior Bilateral Throughout] Respiratory 24 Rate Respiratory 20 32 H Rate [Anterior Bilateral Throughout] Blood Pressure 97/50 O2 Sat by Pulse 95 Oximetry O2 Sat by Pulse 97 Oximetry [ Anterior Bilateral Throughout] 05/17/17 05/17/17 05/17/17 11:15 11:30 11:45 Temperature Pulse Rate 99 H 101 H 102 H Pulse Rate [ Anterior Bilateral Throughout] Respiratory Rate Respiratory Rate [Anterior Bilateral Throughout] Blood Pressure 105/57 100/51 98/59 O2 Sat by Pulse Oximetry O2 Sat by Pulse Oximetry [ Anterior Bilateral Throughout] 05/17/17 12:00 Temperature 98.5 F Pulse Rate Pulse Rate [ Anterior Bilateral Throughout] Respiratory Rate Respiratory Rate [Anterior Bilateral Throughout] Blood Pressure O2 Sat by Pulse Oximetry O2 Sat by Pulse Oximetry [ Anterior Bilateral Throughout] - General Appearance General appearance: well-developed, cachectic EENT: ATNC, PERRL, mucous membranes dry Neck: no JVD, no carotid bruit Respiratory: Present: Decreased Breath Sounds Cardiology: regular, tachycardia Gastrointestinal: normoactive bowel sounds, no tenderness, no distended Integumentary: no rash, warm and dry Neurologic: no focal deficit Musculoskeletal: other (trace pitting edema in BLE) Psychiatric: cooperative - Lab 05/17/17 04:45 05/17/17 04:45 Most recent lab results Calcium 8.9 mg/dL (8.4-10.2) 05/17/17 04:45
--- NOTE | 2017-05-17 13:09 | Progress Note ---
Assessment and Plan Assessment and plan: --Sepsis: Due to MRSA pneumonia,continue Zyvox, ID following --Leukocytosis; due to sepsis, trending down, repeat cultures negative to date, chest x-ray resolving infiltrates . -- septic shock; pressor dependent on Levophed , titrate systolic BP >100, map > 65 --Uncontrolled blood sugars; Accu-Chek sliding scale coverage ADA diet, had long -acting 7030 insulin Started low dose and increase as needed, check hemoglobin A1c --Acute on chronic respiratory failure; secondary to fluid overload/MRSA pneumonia oxygen, BiPAP as needed, dialysis per schedule, intubate as needed pulmonary following --Metabolic encephalopathy at the time of admission; intubated to protect the airway/s/p extubation --Poor oral nutrition ; nutrition supplements --Coronary artery disease s/p PCI : Stable --Cardiomyopathy ejection fraction of 40% 04/2016 --End-stage renal disease on hemodialysis, HD per schedule --h/o Hypertension; hold antihypertensives, blood pressure is in the lower range --Dyslipidemia; on lipid-lowering medications --DVT prophylaxis; heparin renal dose Cardiology, pulmonary, nephrology, ID following Patient is critically ill, with very poor prognosis, tried to call next of kin the daughter to discuss patient's condition and poor prognosis and plan of care and CODE STATUS, unable to reach. Full CODE STATUS Critical care time 31 minutes History Interval history: Patient seen and examined medical records reviewed Feels better today complaints of tiredness Denies chest pain or shortness of breath Remains hypotensive on Levophed Vital signs reviewed Hospitalist Physical - Constitutional Vitals: Temp Pulse Resp BP Pulse Ox 98.5 F 99 H 32 H 95/49 97 05/17/17 12:00 05/17/17 12:30 05/17/17 11:09 05/17/17 12:30 05/17/17 11:00 General appearance: Present: no acute distress, cachectic, disheveled - EENT Eyes: Present: EOM intact - Neck Neck: Present: supple, normal ROM - Respiratory Respiratory effort: normal Respiratory: bilateral: diminished, rales, negative: rhonchi, wheezing - Cardiovascular Rhythm: regular Heart Sounds: Present: S1 & S2 - Extremities Extremities: no ischemia, No edema - Abdominal General gastrointestinal: soft, non-tender, non-distended, normal bowel sounds - Integumentary Integumentary: Present: clear, warm - Psychiatric Psychiatric: appropriate mood/affect, cooperative - Neurologic Neurologic: CNII-XII intact, moves all extremities Results - Labs CBC & Chem 7: 05/17/17 04:45 05/17/17 04:45 Labs: Laboratory Last Values WBC 16.7 K/mm3 (4.5-11.0) H 05/17/17 04:45 RBC 3.08 M/mm3 (3.65-5.03) L 05/17/17 04:45 Hgb 10.2 gm/dl (10.1-14.3) 05/17/17 04:45 Hct 32.5 % (30.3-42.9) 05/17/17 04:45 MCV 106 fl (79-97) H 05/17/17 04:45 MCH 33 pg (28-32) H 05/17/17 04:45 MCHC 32 % (30-34) 05/17/17 04:45 RDW 23.3 % (13.2-15.2) H 05/17/17 04:45 Plt Count 272 K/mm3 (140-440) 05/17/17 04:45 Lymph % (Auto) 3.8 % (13.4-35.0) L 05/17/17 04:45 Lamar % (Auto) 6.7 % (0.0-7.3) 05/17/17 04:45 Eos % (Auto) 0.8 % (0.0-4.3) 05/17/17 04:45 Baso % (Auto) 1.2 % (0.0-1.8) 05/17/17 04:45 Lymph # 0.6 K/mm3 (1.2-5.4) L 05/17/17 04:45 Lamar # 1.1 K/mm3 (0.0-0.8) H 05/17/17 04:45 Eos # 0.1 K/mm3 (0.0-0.4) 05/17/17 04:45 Baso # 0.2 K/mm3 (0.0-0.1) H 05/17/17 04:45 Add Manual Diff Complete 05/16/17 04:00 Total Counted 100 05/16/17 04:00 Seg Neutrophils % 87.5 % (40.0-70.0) H 05/17/17 04:45 Seg Neuts % (Manual) 65.0 % (40.0-70.0) 05/16/17 04:00 Band Neutrophils % 12.0 % 05/16/17 04:00 Lymphocytes % (Manual) 9.0 % (13.4-35.0) L 05/16/17 04:00 Reactive Lymphs % (Man) 0 % 05/16/17 04:00 Monocytes % (Manual) 14.0 % (0.0-7.3) H 05/16/17 04:00 Eosinophils % (Manual) 0 % (0.0-4.3) 05/16/17 04:00 Basophils % (Manual) 0 % (0.0-1.8) 05/16/17 04:00 Metamyelocytes % 0 % 05/16/17 04:00 Myelocytes % 0 % 05/16/17 04:00 Promyelocytes % 0 % 05/16/17 04:00 Blast Cells % 0 % 05/16/17 04:00 Nucleated RBC % Not Reportable 05/16/17 04:00 Seg Neutrophils # 14.6 K/mm3 (1.8-7.7) H 05/17/17 04:45 Seg Neutrophils # Man 15.3 K/mm3 (1.8-7.7) H 05/16/17 04:00 Band Neutrophils # 2.8 K/mm3 05/16/17 04:00 Lymphocytes # (Manual) 2.1 K/mm3 (1.2-5.4) 05/16/17 04:00 Abs React Lymphs (Man) 0.0 K/mm3 05/16/17 04:00 Monocytes # (Manual) 3.3 K/mm3 (0.0-0.8) H 05/16/17 04:00 Eosinophils # (Manual) 0.0 K/mm3 (0.0-0.4) 05/16/17 04:00 Basophils # (Manual) 0.0 K/mm3 (0.0-0.1) 05/16/17 04:00 Metamyelocytes # 0.0 K/mm3 05/16/17 04:00 Myelocytes # 0.0 K/mm3 05/16/17 04:00 Promyelocytes # 0.0 K/mm3 05/16/17 04:00 Blast Cells # 0.0 K/mm3 05/16/17 04:00 WBC Morphology Not Reportable 05/16/17 04:00 Hypersegmented Neuts Not Reportable 05/16/17 04:00 Hyposegmented Neuts Not Reportable 05/16/17 04:00 Hypogranular Neuts Not Reportable 05/16/17 04:00 Smudge Cells Not Reportable 05/16/17 04:00 Toxic Granulation Not Reportable 05/16/17 04:00 Toxic Vacuolation Not Reportable 05/16/17 04:00 Dohle Bodies Not Reportable 05/16/17 04:00 Pelger-Huet Anomaly Not Reportable 05/16/17 04:00 Anthony Rods Not Reportable 05/16/17 04:00 Platelet Estimate Appears normal 05/16/17 04:00 Clumped Platelets Not Reportable 05/16/17 04:00 Plt Clumps, EDTA Not Reportable 05/16/17 04:00 Large Platelets Not Reportable 05/16/17 04:00 Giant Platelets Not Reportable 05/16/17 04:00 Platelet Satelliting Not Reportable 05/16/17 04:00 Plt Morphology Comment Not Reportable 05/16/17 04:00 RBC Morphology Not Reportable 05/16/17 04:00 Dimorphic RBCs Not Reportable 05/16/17 04:00 Polychromasia Not Reportable 05/16/17 04:00 Hypochromasia 1+ 05/16/17 04:00 Poikilocytosis Not Reportable 05/16/17 04:00 Anisocytosis 1+ 05/16/17 04:00 Microcytosis Not Reportable 05/16/17 04:00 Macrocytosis Not Reportable 05/16/17 04:00 Spherocytes Not Reportable 05/16/17 04:00 Pappenheimer Bodies Not Reportable 05/16/17 04:00 Sickle Cells Not Reportable 05/16/17 04:00 Target Cells Not Reportable 05/16/17 04:00 Tear Drop Cells Few 05/16/17 04:00 Ovalocytes Few 05/16/17 04:00 Stomatocytes Few 05/16/17 04:00 Helmet Cells Not Reportable 05/16/17 04:00 Milligan-Grantley Bodies Not Reportable 05/16/17 04:00 [place] Rings Not Reportable 05/16/17 04:00 Anthony Cells Not Reportable 05/16/17 04:00 Bite Cells Not Reportable 05/16/17 04:00 Crenated Cell Not Reportable 05/16/17 04:00 Elliptocytes Few 05/16/17 04:00 Acanthocytes (Spur) Not Reportable 05/16/17 04:00 Rouleaux Not Reportable 05/16/17 04:00 Hemoglobin C Crystals Not Reportable 05/16/17 04:00 Schistocytes Not Reportable 05/16/17 04:00 Malaria parasites Not Reportable 05/16/17 04:00 Jose Bodies Not Reportable 05/16/17 04:00 Hem Pathologist Commnt No 05/16/17 04:00 PT 14.4 Sec. (12.2-14.9) 05/17/17 04:45 INR 1.06 (0.87-1.13) 05/17/17 04:45 APTT 27.5 Sec. (24.2-36.6) 05/17/17 04:45 POC ABG pH 7.450 (7.35-7.45) 05/12/17 13:10 POC ABG pCO2 36.7 (35-45) 05/12/17 13:10 POC ABG pO2 66 (80-105) L 05/12/17 13:10 POC ABG HCO3 25.5 05/12/17 13:10 POC ABG Total CO2 27 05/12/17 13:10 POC ABG O2 Sat 94 05/12/17 13:10 POC ABG Base Excess 2 05/12/17 13:10 FiO2 25 % 05/12/17 13:10 Sodium 134 mmol/L (137-145) L 05/17/17 04:45 Potassium 4.8 mmol/L (3.6-5.0) 05/17/17 04:45 Chloride 89.3 mmol/L (98-107) L 05/17/17 04:45 Carbon Dioxide 21 mmol/L (22-30) L 05/17/17 04:45 Anion Gap 29 mmol/L 05/17/17 04:45 BUN 60 mg/dL (7-17) H 05/17/17 04:45 Creatinine 6.1 mg/dL (0.7-1.2) H 05/17/17 04:45 Estimated GFR 7 ml/min 05/17/17 04:45 BUN/Creatinine Ratio 10 % 05/17/17 04:45 Glucose 87 mg/dL (65-100) 05/17/17 04:45 POC Glucose 172 (70-105) H 05/17/17 11:24 Hemoglobin A1c 5.5 % (4-6) 05/16/17 04:00 Lactic Acid 2.60 mmol/L (0.7-2.0) H* 05/12/17 16:05 Calcium 8.9 mg/dL (8.4-10.2) 05/17/17 04:45 Total Bilirubin 0.50 mg/dL (0.1-1.2) 05/17/17 04:45 AST 22 units/L (5-40) 05/17/17 04:45 ALT 48 units/L (7-56) 05/17/17 04:45 Alkaline Phosphatase 226 units/L (35-129) H 05/17/17 04:45 Ammonia 34.0 umol/L (25-60) 05/17/17 04:45 Total Creatine Kinase 24 units/L (30-135) L 05/09/17 14:00 CK-MB (CK-2) 2.2 ng/mL (0.0-4.0) 05/09/17 14:00 CK-MB (CK-2) Rel Index 9.1 (0-4) H 05/09/17 14:00 Troponin T 0.654 ng/mL (0.00-0.029) H* 05/09/17 14:00 C-Reactive Protein 14.70 mg/dL (0.00-1.30) H 05/15/17 12:15 Total Protein 7.6 g/dL (6.3-8.2) 05/17/17 04:45 Albumin 3.5 g/dL (3.9-5) L 05/17/17 04:45 Albumin/Globulin Ratio 0.9 % 05/17/17 04:45 Triglycerides 125 mg/dL (2-149) 05/09/17 06:00 Cholesterol 73 mg/dL (50-199) 05/09/17 06:00 LDL Cholesterol Direct 21 mg/dL (50-130) L 05/09/17 06:00 HDL Cholesterol 27 mg/dL (40-59) L 05/09/17 06:00 Cholesterol/HDL Ratio 2.70 % 05/09/17 06:00 Urine Color Yellow (Yellow) 05/08/17 Unknown Urine Turbidity Clear (Clear) 05/08/17 Unknown Urine pH 7.0 (5.0-7.0) 05/08/17 Unknown Ur Specific [place] 1.014 (1.003-1.030) 05/08/17 Unknown Urine Protein 100 mg/dl mg/dL (Negative) 05/08/17 Unknown Urine Glucose (UA) 150 mg/dL (Negative) 05/08/17 Unknown Urine Ketones Neg mg/dL (Negative) 05/08/17 Unknown Urine Blood Sm (Negative) 05/08/17 Unknown Urine Nitrite Neg (Negative) 05/08/17 Unknown Urine Bilirubin Neg (Negative) 05/08/17 Unknown Urine Urobilinogen < 2.0 mg/dL (<2.0) 05/08/17 Unknown Ur Leukocyte Esterase Tr (Negative) 05/08/17 Unknown Urine WBC (Auto) 16.0 /HPF (0.0-6.0) H 05/08/17 Unknown Urine RBC (Auto) 3.0 /HPF (0.0-6.0) 05/08/17 Unknown U Epithel Cells (Auto) < 1.0 /HPF (0-13.0) 05/08/17 Unknown Urine Bacteria (Auto) 1+ /HPF (Negative) 05/08/17 Unknown Salicylates < 0.3 mg/dL (2.8-20.0) L 05/08/17 21:35 Acetaminophen < 15.0 ug/mL (10.0-30.0) 05/08/17 21:35 Hepatitis A IgM Ab Non-reactive (NonReactive) 05/09/17 17:00 Hep Bs Antigen Non-reactive (Negative) 05/09/17 17:00 Hep B Core IgM Ab Non-reactive (NonReactive) 05/09/17 17:00 Hepatitis C Antibody Reactive (NonReactive) A 05/09/17 17:00
--- NOTE | 2017-05-17 14:52 | Cat Scan Report ---
FINAL REPORT EXAM: CT CHEST WO CON HISTORY: worsening resp failure ? empyema / abscess TECHNIQUE: CT of chest without IV contrast. Coronal and sagittal reconstructed images provided. PRIORS: CT chest May 08, 2017. FINDINGS: Internal septal thickening extending to the periphery is diffusely present. Interspersed areas of ground-glass opacities also identified. Overall appearance is slightly decreased compared to the prior. Scattered areas of patchy solid infiltrates in both lungs identified. There may be slight improvement in the left upper lung but other areas appear relatively unchanged. No pneumothorax. No significant effusion. No distinct endobronchial lesion. Previously seen endotracheal tube has been removed. There is no obvious abscess. There is no empyema. Moderate to marked cardiomegaly identified. Decreased attenuation of the cardiac chambers relative to the musculature may be related to fluid overload or anemia. Coronary artery disease noted. Valvular calcifications identified. No pericardial effusion. Prominent main pulmonary artery suggests hypertension or pulmonary vascular congestion. Mild aortic atherosclerotic disease. No aneurysm. Axillary regions are unremarkable. Prominent mediastinal lymph nodes are similar to prior. No mass identified. Prominent bilateral hilar lymph nodes also noted. Small amount of fluid around the liver and spleen identified. This is more prominent compared to the prior. Images of the esophagus are unremarkable. No suspicious osseous lesions on this limited examination of the skeleton. Metastatic disease better evaluated with bone scan. Degenerative changes are present in the spine. IMPRESSION: Pulmonary findings may represent CHF with pulmonary edema slightly improved compared to prior. Scattered solid infiltrates are relatively stable except for slight improvement in the left upper lung. Findings may also represent superimposed viral pneumonia, aspiration pneumonia, or bacterial pneumonia. No obvious effusion. Differential diagnosis also includes acute respiratory distress syndrome related to trauma. Prominent bilateral hilar mediastinal lymph nodes are similar to prior and may represent reactive adenopathy. No obvious mass noted. Prominent main pulmonary artery and cardiomegaly are unchanged compared to the prior. Main pulmonary artery appearance may represent pulmonary hypertension and or pulmonary vascular congestion.
[2017-05-18] MEDS: NOVOLOG SUB-Q SCH ×5 (00:04→22:19)
[2017-05-18] MEDS: PROVENTIL IH SCH ×4 (01:51→19:46)
[2017-05-18] MEDS: PROAMATINE PO SCH ×3 (06:13→20:19)
[2017-05-18] MEDS: LEVOPHED 8 MG in NACL 0.9% 250ML 242 ML IV SCH ×2 (06:14→09:20)
[2017-05-18] MEDS: NEURONTIN PO SCH ×3 (06:14→21:37)
--- NOTE | 2017-05-18 08:46 | Progress Note ---
Assessment and Plan 56 y/o female with acute respiratory failure, most likely secondary to volume overload and altered mental status, exact etiology unknown, now with persistent hypotension of unknown etiology. 1. Continue Midodrine 10 TID 2. Continue supplemental O2, wean for sats >88% 3. Bipap PRN, did not wear last night 4. Will discuss on rounds but may need stress dose steroids if there could be a component of adrenal insufficiency. CCT 31 minutes. Subjective Date of service: 05/18/17 Principal diagnosis: MRSA pneumonia, shock,sepsis,ESRD Interval history: No acute events. Still on levophed at 8. Last map recorded at 70. Currently working with speech at the bedside. Had HD yesterday. Tolerated well. Objective Vital Signs - 12hr 05/17/17 05/17/17 05/17/17 20:45 21:00 21:15 Temperature Pulse Rate 100 H 100 H 99 H Pulse Rate [ 98 H Anterior Bilateral Throughout] Respiratory 29 H 28 H 17 Rate Respiratory 26 H Rate [Anterior Bilateral Throughout] Blood Pressure 94/55 97/53 95/55 O2 Sat by Pulse 98 96 98 Oximetry 05/17/17 05/17/17 05/17/17 21:22 21:30 21:45 Temperature Pulse Rate 100 H 98 H 100 H Pulse Rate [ Anterior Bilateral Throughout] Respiratory 22 25 H 28 H Rate Respiratory Rate [Anterior Bilateral Throughout] Blood Pressure 95/55 92/52 93/60 O2 Sat by Pulse 85 98 97 Oximetry 05/17/17 05/17/17 05/17/17 22:00 22:15 22:30 Temperature Pulse Rate 100 H 100 H 99 H Pulse Rate [ Anterior Bilateral Throughout] Respiratory 20 28 H 24 Rate Respiratory Rate [Anterior Bilateral Throughout] Blood Pressure 97/49 104/57 109/61 O2 Sat by Pulse 96 96 Oximetry 05/17/17 05/17/17 05/17/17 22:45 23:00 23:15 Temperature Pulse Rate 100 H 100 H 99 H Pulse Rate [ Anterior Bilateral Throughout] Respiratory 18 24 12 Rate Respiratory Rate [Anterior Bilateral Throughout] Blood Pressure 96/64 108/62 95/64 O2 Sat by Pulse 96 97 99 Oximetry 05/17/17 05/17/17 05/18/17 23:30 23:45 00:00 Temperature 98.1 F Pulse Rate 101 H 101 H 105 H Pulse Rate [ Anterior Bilateral Throughout] Respiratory 18 22 20 Rate Respiratory Rate [Anterior Bilateral Throughout] Blood Pressure 114/66 109/67 101/58 O2 Sat by Pulse 95 87 Oximetry 05/18/17 05/18/17 05/18/17 00:15 00:30 00:45 Temperature Pulse Rate 101 H 103 H 101 H Pulse Rate [ Anterior Bilateral Throughout] Respiratory 38 H 28 H 20 Rate Respiratory Rate [Anterior Bilateral Throughout] Blood Pressure 112/52 116/61 109/63 O2 Sat by Pulse 85 96 98 Oximetry 05/18/17 05/18/17 05/18/17 01:00 01:15 01:30 Temperature Pulse Rate 101 H 101 H 100 H Pulse Rate [ Anterior Bilateral Throughout] Respiratory 24 21 27 H Rate Respiratory Rate [Anterior Bilateral Throughout] Blood Pressure 112/61 110/60 108/58 O2 Sat by Pulse 98 97 92 Oximetry 05/18/17 05/18/17 05/18/17 01:45 01:51 01:54 Temperature Pulse Rate 100 H Pulse Rate [ 97 H 96 H Anterior Bilateral Throughout] Respiratory 21 Rate Respiratory 24 20 Rate [Anterior Bilateral Throughout] Blood Pressure 97/54 O2 Sat by Pulse 100 Oximetry 05/18/17 05/18/17 05/18/17 02:00 02:15 02:30 Temperature Pulse Rate 99 H 100 H 100 H Pulse Rate [ Anterior Bilateral Throughout] Respiratory 38 H 27 H 25 H Rate Respiratory Rate [Anterior Bilateral Throughout] Blood Pressure 102/62 103/62 105/58 O2 Sat by Pulse 96 98 97 Oximetry 05/18/17 05/18/17 05/18/17 02:45 03:00 03:15 Temperature Pulse Rate 100 H 97 H 99 H Pulse Rate [ Anterior Bilateral Throughout] Respiratory 26 H 21 25 H Rate Respiratory Rate [Anterior Bilateral Throughout] Blood Pressure 107/57 101/66 100/63 O2 Sat by Pulse 97 97 97 Oximetry 05/18/17 05/18/17 05/18/17 03:30 03:45 04:00 Temperature 97.4 F L Pulse Rate 108 H 101 H 100 H Pulse Rate [ Anterior Bilateral Throughout] Respiratory 25 H 26 H 25 H Rate Respiratory Rate [Anterior Bilateral Throughout] Blood Pressure 102/66 109/66 115/65 O2 Sat by Pulse 95 97 97 Oximetry 05/18/17 05/18/17 05/18/17 04:15 04:30 04:45 Temperature Pulse Rate 99 H 98 H 98 H Pulse Rate [ Anterior Bilateral Throughout] Respiratory 30 H 26 H 23 Rate Respiratory Rate [Anterior Bilateral Throughout] Blood Pressure 113/66 112/62 111/66 O2 Sat by Pulse 98 98 98 Oximetry 05/18/17 05/18/17 05/18/17 05:00 05:15 05:30 Temperature Pulse Rate 97 H 97 H 97 H Pulse Rate [ Anterior Bilateral Throughout] Respiratory 25 H 21 23 Rate Respiratory Rate [Anterior Bilateral Throughout] Blood Pressure 105/66 108/57 106/57 O2 Sat by Pulse 94 98 97 Oximetry 05/18/17 05/18/17 05/18/17 05:45 06:00 06:15 Temperature Pulse Rate 97 H 97 H 96 H Pulse Rate [ Anterior Bilateral Throughout] Respiratory 23 22 22 Rate Respiratory Rate [Anterior Bilateral Throughout] Blood Pressure 112/57 106/57 109/63 O2 Sat by Pulse 98 94 97 Oximetry 05/18/17 05/18/17 05/18/17 06:30 06:45 07:00 Temperature Pulse Rate 96 H 95 H 95 H Pulse Rate [ Anterior Bilateral Throughout] Respiratory 25 H 25 H 22 Rate Respiratory Rate [Anterior Bilateral Throughout] Blood Pressure 106/62 110/60 107/60 O2 Sat by Pulse 96 97 97 Oximetry 05/18/17 05/18/17 05/18/17 07:15 07:31 07:45 Temperature Pulse Rate 96 H 96 H 96 H Pulse Rate [ Anterior Bilateral Throughout] Respiratory 24 24 17 Rate Respiratory Rate [Anterior Bilateral Throughout] Blood Pressure 107/60 104/53 108/61 O2 Sat by Pulse 96 97 98 Oximetry 05/18/17 05/18/17 08:00 08:01 Temperature 97.4 F L Pulse Rate 97 H Pulse Rate [ Anterior Bilateral Throughout] Respiratory 22 Rate Respiratory Rate [Anterior Bilateral Throughout] Blood Pressure 108/61 O2 Sat by Pulse 81 L Oximetry Constitutional: no acute distress, alert ENT: oropharynx moist Neck: supple Effort: normal Ascultation: Bilateral: diminished breath sounds, rales Percussion: Bilateral: not dull Cardiovascular: regular rate and rhythm (no mrg) Gastrointestinal: normoactive bowel sounds, soft, non-tender Integumentary: other (Patsy left-sided face) Extremities: no cyanosis, no edema Neurologic: normal mental status, non-focal exam, pupils equal and round, CN II- XII normal, motor strength normal and Psychiatric: mood appropriate, affect normal CBC and BMP: 05/17/17 04:45 05/17/17 04:45 ABG, PT/INR, D-dimer: ABG POC ABG pH 7.450 (7.35-7.45) 05/12/17 13:10 POC ABG pCO2 36.7 (35-45) 05/12/17 13:10 POC ABG pO2 66 (80-105) L 05/12/17 13:10 POC ABG HCO3 25.5 05/12/17 13:10 POC ABG Total CO2 27 05/12/17 13:10 POC ABG O2 Sat 94 05/12/17 13:10 PT/INR, D-dimer PT 14.4 Sec. (12.2-14.9) 05/17/17 04:45 INR 1.06 (0.87-1.13) 05/17/17 04:45 Abnormal lab findings: Abnormal Labs 05/08/17 05/08/17 05/08/17 21:25 21:25 21:25 WBC RBC 2.55 L Hgb 8.9 L Hct 28.1 L MCV 111 H MCH 35 H RDW 25.4 H Lymph % (Auto) Leslie % (Auto) Lymph # Leslie # Baso # Seg Neutrophils % Seg Neuts % (Manual) 92.0 H Lymphocytes % (Manual) 6.0 L Monocytes % (Manual) Nucleated RBC % Seg Neutrophils # Seg Neutrophils # Man 9.3 H Lymphocytes # (Manual) 0.6 L Monocytes # (Manual) PT 15.2 H INR 1.14 H POC ABG pH POC ABG pCO2 POC ABG pO2 Sodium Potassium Chloride Carbon Dioxide BUN Creatinine Glucose POC Glucose Lactic Acid 2.50 H* Calcium AST ALT Alkaline Phosphatase Total Creatine Kinase CK-MB (CK-2) Rel Index Troponin T C-Reactive Protein Total Protein Albumin LDL Cholesterol Direct HDL Cholesterol Urine WBC (Auto) Salicylates Hepatitis C Antibody 05/08/17 05/08/17 05/08/17 21:35 22:04 22:42 WBC RBC Hgb Hct MCV MCH RDW Lymph % (Auto) Leslie % (Auto) Lymph # Leslie # Baso # Seg Neutrophils % Seg Neuts % (Manual) Lymphocytes % (Manual) Monocytes % (Manual) Nucleated RBC % Seg Neutrophils # Seg Neutrophils # Man Lymphocytes # (Manual) Monocytes # (Manual) PT INR POC ABG pH 7.271 L POC ABG pCO2 56.5 H POC ABG pO2 30 L Sodium Potassium Chloride 107.8 H Carbon Dioxide BUN 22 H Creatinine 2.6 H Glucose 202 H POC Glucose Lactic Acid Calcium 7.3 L AST ALT Alkaline Phosphatase 258 H Total Creatine Kinase CK-MB (CK-2) Rel Index Troponin T C-Reactive Protein Total Protein 5.2 L Albumin 2.9 L LDL Cholesterol Direct HDL Cholesterol Urine WBC (Auto) Salicylates < 0.3 L Hepatitis C Antibody 05/08/17 05/09/17 05/09/17 Unknown 00:24 06:00 WBC RBC Hgb Hct MCV MCH RDW Lymph % (Auto) Leslie % (Auto) Lymph # Leslie # Baso # Seg Neutrophils % Seg Neuts % (Manual) Lymphocytes % (Manual) Monocytes % (Manual) Nucleated RBC % Seg Neutrophils # Seg Neutrophils # Man Lymphocytes # (Manual) Monocytes # (Manual) PT INR POC ABG pH 7.283 L POC ABG pCO2 49.9 H POC ABG pO2 249 H Sodium Potassium Chloride Carbon Dioxide BUN Creatinine Glucose POC Glucose Lactic Acid Calcium AST ALT Alkaline Phosphatase Total Creatine Kinase 19 L CK-MB (CK-2) Rel Index 11.0 H Troponin T 0.612 H* C-Reactive Protein Total Protein Albumin LDL Cholesterol Direct 21 L HDL Cholesterol 27 L Urine WBC (Auto) 16.0 H Salicylates Hepatitis C Antibody 05/09/17 05/09/17 05/09/17 06:00 06:00 08:52 WBC 11.7 H RBC 2.67 L Hgb 9.3 L Hct 30.0 L MCV 112 H MCH 35 H RDW 24.4 H Lymph % (Auto) Leslie % (Auto) Lymph # Leslie # Baso # Seg Neutrophils % Seg Neuts % (Manual) Lymphocytes % (Manual) Monocytes % (Manual) Nucleated RBC % Seg Neutrophils # Seg Neutrophils # Man Lymphocytes # (Manual) Monocytes # (Manual) PT INR POC ABG pH 7.323 L POC ABG pCO2 POC ABG pO2 143 H Sodium Potassium Chloride Carbon Dioxide BUN 24 H Creatinine 2.9 H Glucose 172 H POC Glucose Lactic Acid Calcium 7.7 L AST ALT Alkaline Phosphatase Total Creatine Kinase CK-MB (CK-2) Rel Index Troponin T C-Reactive Protein Total Protein Albumin LDL Cholesterol Direct HDL Cholesterol Urine WBC (Auto) Salicylates Hepatitis C Antibody 05/09/17 05/09/17 05/11/17 14:00 17:00 06:09 WBC 11.4 H RBC 2.66 L Hgb 9.1 L Hct 29.3 L MCV 110 H MCH 34 H RDW 23.1 H Lymph % (Auto) 4.2 L Leslie % (Auto) 12.7 H Lymph # 0.5 L Leslie # 1.4 H Baso # Seg Neutrophils % 82.5 H Seg Neuts % (Manual) Lymphocytes % (Manual) Monocytes % (Manual) Nucleated RBC % Seg Neutrophils # 9.4 H Seg Neutrophils # Man Lymphocytes # (Manual) Monocytes # (Manual) PT INR POC ABG pH POC ABG pCO2 POC ABG pO2 Sodium Potassium Chloride Carbon Dioxide BUN Creatinine Glucose POC Glucose Lactic Acid Calcium AST ALT Alkaline Phosphatase Total Creatine Kinase 24 L CK-MB (CK-2) Rel Index 9.1 H Troponin T 0.654 H* C-Reactive Protein Total Protein Albumin LDL Cholesterol Direct HDL Cholesterol Urine WBC (Auto) Salicylates Hepatitis C Antibody Reactive A 05/11/17 05/11/17 05/11/17 06:09 08:20 11:34 WBC RBC Hgb Hct MCV MCH RDW Lymph % (Auto) Leslie % (Auto) Lymph # Leslie # Baso # Seg Neutrophils % Seg Neuts % (Manual) Lymphocytes % (Manual) Monocytes % (Manual) Nucleated RBC % Seg Neutrophils # Seg Neutrophils # Man Lymphocytes # (Manual) Monocytes # (Manual) PT INR POC ABG pH POC ABG pCO2 POC ABG pO2 Sodium Potassium Chloride 95.6 L Carbon Dioxide 20 L BUN 24 H Creatinine 3.4 H Glucose 134 H POC Glucose 154 H 149 H Lactic Acid Calcium AST ALT Alkaline Phosphatase Total Creatine Kinase CK-MB (CK-2) Rel Index Troponin T C-Reactive Protein Total Protein Albumin LDL Cholesterol Direct HDL Cholesterol Urine WBC (Auto) Salicylates Hepatitis C Antibody 05/11/17 05/11/17 05/11/17 15:30 16:27 21:58 WBC RBC Hgb Hct MCV MCH RDW Lymph % (Auto) Leslie % (Auto) Lymph # Leslie # Baso # Seg Neutrophils % Seg Neuts % (Manual) Lymphocytes % (Manual) Monocytes % (Manual) Nucleated RBC % Seg Neutrophils # Seg Neutrophils # Man Lymphocytes # (Manual) Monocytes # (Manual) PT INR POC ABG pH POC ABG pCO2 POC ABG pO2 Sodium Potassium Chloride Carbon Dioxide BUN Creatinine Glucose POC Glucose 163 H 199 H Lactic Acid Calcium AST ALT Alkaline Phosphatase Total Creatine Kinase CK-MB (CK-2) Rel Index Troponin T C-Reactive Protein 44.70 H Total Protein Albumin LDL Cholesterol Direct HDL Cholesterol Urine WBC (Auto) Salicylates Hepatitis C Antibody 05/12/17 05/12/17 05/12/17 08:42 13:10 14:10 WBC RBC Hgb Hct MCV MCH RDW Lymph % (Auto) Leslie % (Auto) Lymph # Leslie # Baso # Seg Neutrophils % Seg Neuts % (Manual) Lymphocytes % (Manual) Monocytes % (Manual) Nucleated RBC % Seg Neutrophils # Seg Neutrophils # Man Lymphocytes # (Manual) Monocytes # (Manual) PT INR POC ABG pH POC ABG pCO2 POC ABG pO2 66 L Sodium Potassium Chloride Carbon Dioxide BUN Creatinine Glucose POC Glucose 190 H 162 H Lactic Acid Calcium AST ALT Alkaline Phosphatase Total Creatine Kinase CK-MB (CK-2) Rel Index Troponin T C-Reactive Protein Total Protein Albumin LDL Cholesterol Direct HDL Cholesterol Urine WBC (Auto) Salicylates Hepatitis C Antibody 05/12/17 05/12/17 05/12/17 15:46 16:05 21:42 WBC RBC Hgb Hct MCV MCH RDW Lymph % (Auto) Leslie % (Auto) Lymph # Leslie # Baso # Seg Neutrophils % Seg Neuts % (Manual) Lymphocytes % (Manual) Monocytes % (Manual) Nucleated RBC % Seg Neutrophils # Seg Neutrophils # Man Lymphocytes # (Manual) Monocytes # (Manual) PT INR POC ABG pH POC ABG pCO2 POC ABG pO2 Sodium Potassium Chloride Carbon Dioxide BUN Creatinine Glucose POC Glucose 153 H 153 H Lactic Acid 2.60 H* Calcium AST ALT Alkaline Phosphatase Total Creatine Kinase CK-MB (CK-2) Rel Index Troponin T C-Reactive Protein Total Protein Albumin LDL Cholesterol Direct HDL Cholesterol Urine WBC (Auto) Salicylates Hepatitis C Antibody 05/13/17 05/13/17 05/13/17 05:12 05:30 05:30 WBC 22.0 H RBC 3.02 L Hgb 9.9 L Hct MCV 105 H MCH 33 H RDW 22.9 H Lymph % (Auto) Leslie % (Auto) Lymph # Leslie # Baso # Seg Neutrophils % Seg Neuts % (Manual) 89.0 H Lymphocytes % (Manual) 6.0 L Monocytes % (Manual) Nucleated RBC % 1.0 H Seg Neutrophils # Seg Neutrophils # Man 19.6 H Lymphocytes # (Manual) Monocytes # (Manual) 0.9 H PT INR POC ABG pH POC ABG pCO2 POC ABG pO2 Sodium Potassium Chloride 90.8 L Carbon Dioxide 21 L BUN 28 H Creatinine 3.1 H Glucose 172 H POC Glucose 182 H Lactic Acid Calcium AST ALT Alkaline Phosphatase Total Creatine Kinase CK-MB (CK-2) Rel Index Troponin T C-Reactive Protein Total Protein Albumin LDL Cholesterol Direct HDL Cholesterol Urine WBC (Auto) Salicylates Hepatitis C Antibody 05/13/17 05/13/17 05/13/17 11:52 18:01 23:31 WBC RBC Hgb Hct MCV MCH RDW Lymph % (Auto) Leslie % (Auto) Lymph # Leslie # Baso # Seg Neutrophils % Seg Neuts % (Manual) Lymphocytes % (Manual) Monocytes % (Manual) Nucleated RBC % Seg Neutrophils # Seg Neutrophils # Man Lymphocytes # (Manual) Monocytes # (Manual) PT INR POC ABG pH POC ABG pCO2 POC ABG pO2 Sodium Potassium Chloride Carbon Dioxide BUN Creatinine Glucose POC Glucose 185 H 216 H 281 H Lactic Acid Calcium AST ALT Alkaline Phosphatase Total Creatine Kinase CK-MB (CK-2) Rel Index Troponin T C-Reactive Protein Total Protein Albumin LDL Cholesterol Direct HDL Cholesterol Urine WBC (Auto) Salicylates Hepatitis C Antibody 05/14/17 05/14/17 05/14/17 05:43 06:10 06:10 WBC 19.6 H RBC 3.61 L Hgb Hct MCV 104 H MCH 34 H RDW 23.4 H Lymph % (Auto) 8.6 L Leslie % (Auto) Lymph # Leslie # 1.3 H Baso # 0.2 H Seg Neutrophils % 82.5 H Seg Neuts % (Manual) Lymphocytes % (Manual) Monocytes % (Manual) Nucleated RBC % Seg Neutrophils # 16.2 H Seg Neutrophils # Man Lymphocytes # (Manual) Monocytes # (Manual) PT INR POC ABG pH POC ABG pCO2 POC ABG pO2 Sodium Potassium 3.4 L Chloride 89.1 L Carbon Dioxide BUN 32 H Creatinine 3.0 H Glucose 224 H POC Glucose 215 H Lactic Acid Calcium AST 85 H ALT 162 H Alkaline Phosphatase 347 H Total Creatine Kinase CK-MB (CK-2) Rel Index Troponin T C-Reactive Protein Total Protein 8.5 H Albumin LDL Cholesterol Direct HDL Cholesterol Urine WBC (Auto) Salicylates Hepatitis C Antibody 05/14/17 05/14/17 05/14/17 08:32 11:26 16:42 WBC RBC Hgb Hct MCV MCH RDW Lymph % (Auto) Leslie % (Auto) Lymph # Leslie # Baso # Seg Neutrophils % Seg Neuts % (Manual) Lymphocytes % (Manual) Monocytes % (Manual) Nucleated RBC % Seg Neutrophils # Seg Neutrophils # Man Lymphocytes # (Manual) Monocytes # (Manual) PT INR POC ABG pH POC ABG pCO2 POC ABG pO2 Sodium Potassium Chloride Carbon Dioxide BUN Creatinine Glucose POC Glucose 204 H 182 H 310 H Lactic Acid Calcium AST ALT Alkaline Phosphatase Total Creatine Kinase CK-MB (CK-2) Rel Index Troponin T C-Reactive Protein Total Protein Albumin LDL Cholesterol Direct HDL Cholesterol Urine WBC (Auto) Salicylates Hepatitis C Antibody 05/14/17 05/15/17 05/15/17 23:00 03:45 03:45 WBC 18.3 H RBC 3.42 L Hgb Hct MCV 105 H MCH 34 H RDW 23.0 H Lymph % (Auto) 10.4 L Leslie % (Auto) 7.7 H Lymph # Leslie # 1.4 H Baso # Seg Neutrophils % 79.5 H Seg Neuts % (Manual) Lymphocytes % (Manual) Monocytes % (Manual) Nucleated RBC % Seg Neutrophils # 14.6 H Seg Neutrophils # Man Lymphocytes # (Manual) Monocytes # (Manual) PT INR POC ABG pH POC ABG pCO2 POC ABG pO2 Sodium 132 L Potassium Chloride 88.4 L Carbon Dioxide BUN 29 H Creatinine 2.8 H Glucose 310 H POC Glucose 264 H Lactic Acid Calcium AST 54 H ALT 111 H Alkaline Phosphatase 318 H Total Creatine Kinase CK-MB (CK-2) Rel Index Troponin T C-Reactive Protein Total Protein Albumin 3.7 L LDL Cholesterol Direct HDL Cholesterol Urine WBC (Auto) Salicylates Hepatitis C Antibody 05/15/17 05/15/17 05/15/17 07:36 12:14 12:15 WBC RBC Hgb Hct MCV MCH RDW Lymph % (Auto) Leslie % (Auto) Lymph # Leslie # Baso # Seg Neutrophils % Seg Neuts % (Manual) Lymphocytes % (Manual) Monocytes % (Manual) Nucleated RBC % Seg Neutrophils # Seg Neutrophils # Man Lymphocytes # (Manual) Monocytes # (Manual) PT INR POC ABG pH POC ABG pCO2 POC ABG pO2 Sodium Potassium Chloride Carbon Dioxide BUN Creatinine Glucose POC Glucose 253 H > 500 H Lactic Acid Calcium AST ALT Alkaline Phosphatase Total Creatine Kinase CK-MB (CK-2) Rel Index Troponin T C-Reactive Protein 14.70 H Total Protein Albumin LDL Cholesterol Direct HDL Cholesterol Urine WBC (Auto) Salicylates Hepatitis C Antibody 05/15/17 05/15/17 05/15/17 12:15 15:43 22:26 WBC RBC Hgb Hct MCV MCH RDW Lymph % (Auto) Leslie % (Auto) Lymph # Leslie # Baso # Seg Neutrophils % Seg Neuts % (Manual) Lymphocytes % (Manual) Monocytes % (Manual) Nucleated RBC % Seg Neutrophils # Seg Neutrophils # Man Lymphocytes # (Manual) Monocytes # (Manual) PT INR POC ABG pH POC ABG pCO2 POC ABG pO2 Sodium Potassium Chloride Carbon Dioxide BUN Creatinine Glucose 336 H POC Glucose 288 H 243 H Lactic Acid Calcium AST ALT Alkaline Phosphatase Total Creatine Kinase CK-MB (CK-2) Rel Index Troponin T C-Reactive Protein Total Protein Albumin LDL Cholesterol Direct HDL Cholesterol Urine WBC (Auto) Salicylates Hepatitis C Antibody 05/16/17 05/16/17 05/16/17 04:00 04:00 07:26 WBC 23.5 H RBC 3.25 L Hgb Hct MCV 106 H MCH 33 H RDW 23.2 H Lymph % (Auto) Leslie % (Auto) Lymph # Leslie # Baso # Seg Neutrophils % Seg Neuts % (Manual) Lymphocytes % (Manual) 9.0 L Monocytes % (Manual) 14.0 H Nucleated RBC % Seg Neutrophils # Seg Neutrophils # Man 15.3 H Lymphocytes # (Manual) Monocytes # (Manual) 3.3 H PT INR POC ABG pH POC ABG pCO2 POC ABG pO2 Sodium Potassium Chloride 91.5 L Carbon Dioxide BUN 48 H Creatinine 4.5 H D Glucose POC Glucose 107 H Lactic Acid Calcium AST ALT Alkaline Phosphatase Total Creatine Kinase CK-MB (CK-2) Rel Index Troponin T C-Reactive Protein Total Protein Albumin LDL Cholesterol Direct HDL Cholesterol Urine WBC (Auto) Salicylates Hepatitis C Antibody 05/16/17 05/16/17 05/16/17 11:57 17:14 21:30 WBC RBC Hgb Hct MCV MCH RDW Lymph % (Auto) Leslie % (Auto) Lymph # Leslie # Baso # Seg Neutrophils % Seg Neuts % (Manual) Lymphocytes % (Manual) Monocytes % (Manual) Nucleated RBC % Seg Neutrophils # Seg Neutrophils # Man Lymphocytes # (Manual) Monocytes # (Manual) PT INR POC ABG pH POC ABG pCO2 POC ABG pO2 Sodium Potassium Chloride Carbon Dioxide BUN Creatinine Glucose POC Glucose 190 H 200 H 152 H Lactic Acid Calcium AST ALT Alkaline Phosphatase Total Creatine Kinase CK-MB (CK-2) Rel Index Troponin T C-Reactive Protein Total Protein Albumin LDL Cholesterol Direct HDL Cholesterol Urine WBC (Auto) Salicylates Hepatitis C Antibody 05/17/17 05/17/17 05/17/17 04:45 04:45 11:24 WBC 16.7 H RBC 3.08 L Hgb Hct MCV 106 H MCH 33 H RDW 23.3 H Lymph % (Auto) 3.8 L Leslie % (Auto) Lymph # 0.6 L Leslie # 1.1 H Baso # 0.2 H Seg Neutrophils % 87.5 H Seg Neuts % (Manual) Lymphocytes % (Manual) Monocytes % (Manual) Nucleated RBC % Seg Neutrophils # 14.6 H Seg Neutrophils # Man Lymphocytes # (Manual) Monocytes # (Manual) PT INR POC ABG pH POC ABG pCO2 POC ABG pO2 Sodium 134 L Potassium Chloride 89.3 L Carbon Dioxide 21 L BUN 60 H Creatinine 6.1 H Glucose POC Glucose 172 H Lactic Acid Calcium AST ALT Alkaline Phosphatase 226 H Total Creatine Kinase CK-MB (CK-2) Rel Index Troponin T C-Reactive Protein Total Protein Albumin 3.5 L LDL Cholesterol Direct HDL Cholesterol Urine WBC (Auto) Salicylates Hepatitis C Antibody 05/17/17 05/17/17 05/18/17 16:24 21:34 05:06 WBC RBC Hgb Hct MCV MCH RDW Lymph % (Auto) Leslie % (Auto) Lymph # Leslie # Baso # Seg Neutrophils % Seg Neuts % (Manual) Lymphocytes % (Manual) Monocytes % (Manual) Nucleated RBC % Seg Neutrophils # Seg Neutrophils # Man Lymphocytes # (Manual) Monocytes # (Manual) PT INR POC ABG pH POC ABG pCO2 POC ABG pO2 Sodium Potassium Chloride Carbon Dioxide BUN Creatinine Glucose POC Glucose 116 H 182 H 153 H Lactic Acid Calcium AST ALT Alkaline Phosphatase Total Creatine Kinase CK-MB (CK-2) Rel Index Troponin T C-Reactive Protein Total Protein Albumin LDL Cholesterol Direct HDL Cholesterol Urine WBC (Auto) Salicylates Hepatitis C Antibody 05/18/17 08:01 WBC RBC Hgb Hct MCV MCH RDW Lymph % (Auto) Leslie % (Auto) Lymph # Leslie # Baso # Seg Neutrophils % Seg Neuts % (Manual) Lymphocytes % (Manual) Monocytes % (Manual) Nucleated RBC % Seg Neutrophils # Seg Neutrophils # Man Lymphocytes # (Manual) Monocytes # (Manual) PT INR POC ABG pH POC ABG pCO2 POC ABG pO2 Sodium Potassium Chloride Carbon Dioxide BUN Creatinine Glucose POC Glucose 145 H Lactic Acid Calcium AST ALT Alkaline Phosphatase Total Creatine Kinase CK-MB (CK-2) Rel Index Troponin T C-Reactive Protein Total Protein Albumin LDL Cholesterol Direct HDL Cholesterol Urine WBC (Auto) Salicylates Hepatitis C Antibody
--- NOTE | 2017-05-18 08:58 | Progress Note ---
Assessment and Plan Assessment: Acute on chronic systolic heart failure- improving ICMP - echo 04/17/2017 showed EF 40% Elevated troponins - ECG with NAF; pt with no c/o chest pain; currently nonspecific in setting of acutely decompensated HF, sepsis, and ESRD Acute respiratory failure - s/p extubation AMS - head CT with NAF MRSA pneumonia/atelectasis Septic shock ESRD on HD - TTS HD schedule CAD, HI with PCI of mid LAD and mid circ at [facility] (01/20/2016), NSTEMI with subacute left circ and LAD stent thrombosis s/p stent of left circ and balloon angioplasty alone of LAD (02/22/2016) DM H/o HTN - with hypotension since admission HLP Anemia Hepatitis C Moderate to severe TR Pulmonary HTN - RVSP 57.9mmHg Plan: Volume optimization per nephrology. Midodrine initiated per critical care team. Wean pressors as tolerated. No indication for repeat echo given recent echo 04/17/2017. No BB, ACEI/ARB, and/or anti-hypertensives at this time given persistent hypotension since admission. The patient has been seen in conjunction with Dr. Abdias Monreal who agrees with the assessment and plan of care. Subjective Date of service: 05/18/17 Principal diagnosis: MRSA pneumonia, shock,sepsis,ESRD Interval history: pt resting in bed, A&O, no current complaints. Remains on levophed gtt. Objective Last Vital Signs Temp 97.4 F L 05/18/17 08:00 Pulse 96 H 05/18/17 08:52 Resp 18 05/18/17 08:52 BP 108/61 05/18/17 08:01 Pulse Ox 97 05/18/17 08:51 - Physical Examination General: No Apparent Distress HEENT: Positive: PERRL, Normocephaly, Mucus Membranes Moist Neck: Positive: neck supple, trachea midline Cardiac: Positive: Reg Rate and Rhythm, S1/S2 Lungs: Positive: Decreased Breath Sounds, Rhonchi Neuro: Positive: Grossly Intact Abdomen: Positive: Soft. Negative: Tender Skin: Positive: Clear. Negative: Rash, Wound Musculoskeletal: No Fluid Collection, No Pain, Normal Range of Motion Extremities: Absent: edema - Imaging and Cardiology EKG: report reviewed, image reviewed Cardiac cath: report reviewed (HI and PCI of mid LAD and mid circ on 01/20/2016; subacute left circ and LAD stent thrombosis s/p stent of left circ and balloon angioplasty alone of LAD (02/22/2016)) - EKG Sinus rhythms and dysrhythmias: sinus rhythm AV and intraventricular conduction: right bundle branch block (incomplete)
[2017-05-18] MEDS: HABITROL TD SCH (09:11)
[2017-05-18] MEDS: RENVELA PO SCH ×3 (09:12→17:22)
[2017-05-18] MEDS: BABY ASPIRIN PO SCH (09:13)
[2017-05-18] MEDS: SENSIPAR PO SCH ×2 (09:13→21:37)
[2017-05-18] MEDS: ZYVOX PO SCH ×2 (09:13→21:37)
[2017-05-18] MEDS: ZOLOFT PO SCH (09:13)
[2017-05-18] MEDS: HEPARIN SUB-Q SCH ×2 (09:14→21:40)
--- NOTE | 2017-05-18 10:23 | Progress Note ---
Assessment and Plan (1) ESRD (end stage renal disease) Current Visit: Yes Status: Chronic Plan to address problem: no indication for HD today Levophed for BP support, started on Midodrine Fluid restriction of 1 liter per day Renally dose medications Monitor I/O's Obtain daily weights Assess dialysis needs daily (2) Diabetes mellitus Current Visit: Yes Status: Acute Plan to address problem: per primary team (3) Acute hypoxemic respiratory failure Current Visit: No Status: Acute Plan to address problem: on NC (4) Hypotension Current Visit: Yes Status: Acute Plan to address problem: weaning off Levophed drip started on Midodrine Subjective Date of service: 05/18/17 Principal diagnosis: MRSA pneumonia, shock,sepsis,ESRD Interval history: feels weak Objective - Vital Signs Vital signs: Vital Signs - 12hr 05/17/17 05/17/17 05/17/17 22:30 22:45 23:00 Temperature Pulse Rate 99 H 100 H 100 H Pulse Rate [ Anterior Bilateral Throughout] Pulse Rate [ Posterior Bilateral Throughout] Respiratory 24 18 24 Rate Respiratory Rate [Anterior Bilateral Throughout] Respiratory Rate [Posterior Bilateral Throughout] Blood Pressure 109/61 96/64 108/62 O2 Sat by Pulse 96 96 97 Oximetry 05/17/17 05/17/17 05/17/17 23:15 23:30 23:45 Temperature Pulse Rate 99 H 101 H 101 H Pulse Rate [ Anterior Bilateral Throughout] Pulse Rate [ Posterior Bilateral Throughout] Respiratory 12 18 22 Rate Respiratory Rate [Anterior Bilateral Throughout] Respiratory Rate [Posterior Bilateral Throughout] Blood Pressure 95/64 114/66 109/67 O2 Sat by Pulse 99 95 Oximetry 05/18/17 05/18/17 05/18/17 00:00 00:15 00:30 Temperature 98.1 F Pulse Rate 105 H 101 H 103 H Pulse Rate [ Anterior Bilateral Throughout] Pulse Rate [ Posterior Bilateral Throughout] Respiratory 20 38 H 28 H Rate Respiratory Rate [Anterior Bilateral Throughout] Respiratory Rate [Posterior Bilateral Throughout] Blood Pressure 101/58 112/52 116/61 O2 Sat by Pulse 87 85 96 Oximetry 05/18/17 05/18/17 05/18/17 00:45 01:00 01:15 Temperature Pulse Rate 101 H 101 H 101 H Pulse Rate [ Anterior Bilateral Throughout] Pulse Rate [ Posterior Bilateral Throughout] Respiratory 20 24 21 Rate Respiratory Rate [Anterior Bilateral Throughout] Respiratory Rate [Posterior Bilateral Throughout] Blood Pressure 109/63 112/61 110/60 O2 Sat by Pulse 98 98 97 Oximetry 05/18/17 05/18/17 05/18/17 01:30 01:45 01:51 Temperature Pulse Rate 100 H 100 H Pulse Rate [ 97 H Anterior Bilateral Throughout] Pulse Rate [ Posterior Bilateral Throughout] Respiratory 27 H 21 Rate Respiratory 24 Rate [Anterior Bilateral Throughout] Respiratory Rate [Posterior Bilateral Throughout] Blood Pressure 108/58 97/54 O2 Sat by Pulse 92 100 Oximetry 05/18/17 05/18/17 05/18/17 01:54 02:00 02:15 Temperature Pulse Rate 99 H 100 H Pulse Rate [ 96 H Anterior Bilateral Throughout] Pulse Rate [ Posterior Bilateral Throughout] Respiratory 38 H 27 H Rate Respiratory 20 Rate [Anterior Bilateral Throughout] Respiratory Rate [Posterior Bilateral Throughout] Blood Pressure 102/62 103/62 O2 Sat by Pulse 96 98 Oximetry 05/18/17 05/18/17 05/18/17 02:30 02:45 03:00 Temperature Pulse Rate 100 H 100 H 97 H Pulse Rate [ Anterior Bilateral Throughout] Pulse Rate [ Posterior Bilateral Throughout] Respiratory 25 H 26 H 21 Rate Respiratory Rate [Anterior Bilateral Throughout] Respiratory Rate [Posterior Bilateral Throughout] Blood Pressure 105/58 107/57 101/66 O2 Sat by Pulse 97 97 97 Oximetry 05/18/17 05/18/17 05/18/17 03:15 03:30 03:45 Temperature 97.4 F L Pulse Rate 99 H 108 H 101 H Pulse Rate [ Anterior Bilateral Throughout] Pulse Rate [ Posterior Bilateral Throughout] Respiratory 25 H 25 H 26 H Rate Respiratory Rate [Anterior Bilateral Throughout] Respiratory Rate [Posterior Bilateral Throughout] Blood Pressure 100/63 102/66 109/66 O2 Sat by Pulse 97 95 97 Oximetry 05/18/17 05/18/17 05/18/17 04:00 04:15 04:30 Temperature Pulse Rate 100 H 99 H 98 H Pulse Rate [ Anterior Bilateral Throughout] Pulse Rate [ Posterior Bilateral Throughout] Respiratory 25 H 30 H 26 H Rate Respiratory Rate [Anterior Bilateral Throughout] Respiratory Rate [Posterior Bilateral Throughout] Blood Pressure 115/65 113/66 112/62 O2 Sat by Pulse 97 98 98 Oximetry 05/18/17 05/18/17 05/18/17 04:45 05:00 05:15 Temperature Pulse Rate 98 H 97 H 97 H Pulse Rate [ Anterior Bilateral Throughout] Pulse Rate [ Posterior Bilateral Throughout] Respiratory 23 25 H 21 Rate Respiratory Rate [Anterior Bilateral Throughout] Respiratory Rate [Posterior Bilateral Throughout] Blood Pressure 111/66 105/66 108/57 O2 Sat by Pulse 98 94 98 Oximetry 05/18/17 05/18/17 05/18/17 05:30 05:45 06:00 Temperature Pulse Rate 97 H 97 H 97 H Pulse Rate [ Anterior Bilateral Throughout] Pulse Rate [ Posterior Bilateral Throughout] Respiratory 23 23 22 Rate Respiratory Rate [Anterior Bilateral Throughout] Respiratory Rate [Posterior Bilateral Throughout] Blood Pressure 106/57 112/57 106/57 O2 Sat by Pulse 97 98 94 Oximetry 05/18/17 05/18/17 05/18/17 06:15 06:30 06:45 Temperature Pulse Rate 96 H 96 H 95 H Pulse Rate [ Anterior Bilateral Throughout] Pulse Rate [ Posterior Bilateral Throughout] Respiratory 22 25 H 25 H Rate Respiratory Rate [Anterior Bilateral Throughout] Respiratory Rate [Posterior Bilateral Throughout] Blood Pressure 109/63 106/62 110/60 O2 Sat by Pulse 97 96 97 Oximetry 05/18/17 05/18/17 05/18/17 07:00 07:15 07:31 Temperature Pulse Rate 95 H 96 H 96 H Pulse Rate [ Anterior Bilateral Throughout] Pulse Rate [ Posterior Bilateral Throughout] Respiratory 22 24 24 Rate Respiratory Rate [Anterior Bilateral Throughout] Respiratory Rate [Posterior Bilateral Throughout] Blood Pressure 107/60 107/60 104/53 O2 Sat by Pulse 97 96 97 Oximetry 05/18/17 05/18/17 05/18/17 07:45 08:00 08:01 Temperature 97.4 F L Pulse Rate 96 H 97 H Pulse Rate [ Anterior Bilateral Throughout] Pulse Rate [ Posterior Bilateral Throughout] Respiratory 17 22 Rate Respiratory Rate [Anterior Bilateral Throughout] Respiratory Rate [Posterior Bilateral Throughout] Blood Pressure 108/61 108/61 O2 Sat by Pulse 98 81 L Oximetry 05/18/17 05/18/17 05/18/17 08:51 08:52 09:11 Temperature Pulse Rate Pulse Rate [ 97 H Anterior Bilateral Throughout] Pulse Rate [ 96 H Posterior Bilateral Throughout] Respiratory Rate Respiratory 18 Rate [Anterior Bilateral Throughout] Respiratory 18 Rate [Posterior Bilateral Throughout] Blood Pressure O2 Sat by Pulse 97 Oximetry - General Appearance General appearance: well-developed, cachectic EENT: ATNC, PERRL, mucous membranes dry Neck: no JVD, no carotid bruit Respiratory: Present: Clear to Ascultation Cardiology: regular, S1S2 Gastrointestinal: normoactive bowel sounds, no tenderness, no distended Integumentary: no rash, warm and dry Neurologic: no focal deficit, no asterixis Musculoskeletal: other (no edema in BLE) Psychiatric: cooperative - Lab 05/17/17 04:45 05/17/17 04:45 Most recent lab results Calcium 8.9 mg/dL (8.4-10.2) 05/17/17 04:45
--- NOTE | 2017-05-18 10:24 | Progress Note ---
Assessment and Plan Assessment: 1) Sepsis with septic shock: still pressors, unclear etiology of persistent hypotension ? adrenal insuf ? third spacing ?, leukocytosis worse during the weekend now better. Etiology most likely pneumonia. 2) Bilateral pneumonia: -tracheal asp + MRSA -CRP very high at 44 --> 14 -CT chest - ector alveolar densities, repeat CXR better 3) Resp failure - better 4) HCV / Ascitis 5) ESRD on HD 6) CAD 7) CHF with exacerbation 8) LALO - worsening on HD now 9) Recurrent falls Plan: -f/u cortisol level -pending -agree with IV steroids trial -continue zyvox day 8 of 10 -contact isolation -evaluation and precautions for recurrent falls. Thank you Dr Gutierrez for your consultation, will follow up with you. Tamera Butler MD Infectious Diseases Specialist [facility], [facility] ([facility]) M [phone] O [phone] Subjective Date of service: 05/18/17 Principal diagnosis: MRSA pneumonia, shock,sepsis,ESRD Interval history: Alert. Still on levophed at 7 mcg/min, no fever. Microbiology: Blood cultures: 05/09 neg 05/16 ngtd Urine cultures: Respiratory cultures: TA 05/09 MRSA Current Antimicrobials: zyvox 05/12 Previous Antimicrobials: Ceftriaxone Objective - Exam Narrative Exam: General appearance: alert talkative in NAD Eyes: anicteric sclerae, moist conjunctivae; no lid-lag; PERRLA HENT: Atraumatic Neck: Trachea midline; supple, no thyromegaly or lymphadenopathy Lungs: ector rhonchi CV: rrr Abdomen: Soft, non-tender Extremities: No peripheral edema or extremity lymphadenopathy Skin: +multiple ecchymoses left forehead Psych: somnolent confused Neuro: somnolent Moving all extermities Lines: No CVL / PICC - Constitutional Vitals: Vital Signs Temp Pulse Resp BP Pulse Ox 97.4 F L 97 H 18 108/61 97 05/18/17 08:00 05/18/17 09:11 05/18/17 09:11 05/18/17 08:01 05/18/17 08:51 Temperature -Last 24 Hours Temperature 97.4 F Temperature 97.4 F Temperature 98.1 F Temperature 98 F Temperature 98.6 F Temperature 98.0 F Temperature 98.5 F Temperature 98.6 F - Labs CBC & Chem 7: 05/17/17 04:45 05/17/17 04:45 Labs: Abnormal lab results 05/17/17 05/17/17 05/17/17 Range/Units 08:20 11:24 16:24 POC Glucose 107 H 172 H 116 H (70-105) 05/17/17 05/18/17 05/18/17 Range/Units 21:34 05:06 08:01 POC Glucose 182 H 153 H 145 H (70-105)
[2017-05-18] MEDS: TYLENOL PO PRN ×2 (13:06→21:37)
--- NOTE | 2017-05-18 17:10 | Progress Note ---
Assessment and Plan Assessment and plan: -- septic shock; pressor dependent on Levophed , titrate systolic BP >100, map > 65 Continue Midodrin, closely monitor --Sepsis: Due to MRSA pneumonia,continue Zyvox, ID following --Leukocytosis; due to sepsis, trending down, repeat cultures negative to date, chest x-ray resolving infiltrates . --Type 2 diabetes mellitus; moderate control, Accu-Chek sliding scale coverage ADA diet, and long-acting 7030 insulin --Acute on chronic respiratory failure; secondary to fluid overload/MRSA pneumonia oxygen, BiPAP as needed, dialysis per schedule, --Metabolic encephalopathy at the time of admission; intubated to protect the airway/s/p extubation --Poor oral nutrition ; nutrition supplements --Coronary artery disease s/p PCI : Stable --Cardiomyopathy ejection fraction of 40% 04/2016 --End-stage renal disease on hemodialysis, HD per schedule --Dyslipidemia; on lipid-lowering medications --DVT prophylaxis; SCD Cardiology, pulmonary, nephrology, ID following Patient's condition treatment and discussed in detail with the daughter at the bedside Answered all her questions. Physical therapy occupational therapy as tolerated Full CODE STATUS Critical care time 31 minutes History Interval history: Patient seen and evaluated, medical records reviewed Patient is more alert and awake today Remains pressor dependent Complaints of generalized weakness Hospitalist Physical - Constitutional Vitals: Temp Pulse Resp BP Pulse Ox 97.7 F 97 H 29 H 114/66 100 05/18/17 12:00 05/18/17 15:00 05/18/17 15:00 05/18/17 15:00 05/18/17 15:00 General appearance: Present: no acute distress, cachectic, disheveled - EENT Eyes: Present: PERRL, EOM intact - Neck Neck: Present: supple, normal ROM - Respiratory Respiratory effort: normal Respiratory: bilateral: diminished, negative: rales, rhonchi, wheezing - Cardiovascular Rhythm: regular Heart Sounds: Present: S1 & S2 - Extremities Extremities: no ischemia, No edema, abnormal (multiple bruises healing) - Abdominal General gastrointestinal: soft, non-tender, non-distended, normal bowel sounds - Integumentary Integumentary: Present: clear, warm - Psychiatric Psychiatric: appropriate mood/affect, other (confused at times) - Neurologic Neurologic: moves all extremities Results - Labs CBC & Chem 7: 05/17/17 04:45 05/17/17 04:45 Labs: Laboratory Last Values WBC 16.7 K/mm3 (4.5-11.0) H 05/17/17 04:45 RBC 3.08 M/mm3 (3.65-5.03) L 05/17/17 04:45 Hgb 10.2 gm/dl (10.1-14.3) 05/17/17 04:45 Hct 32.5 % (30.3-42.9) 05/17/17 04:45 MCV 106 fl (79-97) H 05/17/17 04:45 MCH 33 pg (28-32) H 05/17/17 04:45 MCHC 32 % (30-34) 05/17/17 04:45 RDW 23.3 % (13.2-15.2) H 05/17/17 04:45 Plt Count 272 K/mm3 (140-440) 05/17/17 04:45 Lymph % (Auto) 3.8 % (13.4-35.0) L 05/17/17 04:45 [place] % (Auto) 6.7 % (0.0-7.3) 05/17/17 04:45 Eos % (Auto) 0.8 % (0.0-4.3) 05/17/17 04:45 Baso % (Auto) 1.2 % (0.0-1.8) 05/17/17 04:45 Lymph # 0.6 K/mm3 (1.2-5.4) L 05/17/17 04:45 [place] # 1.1 K/mm3 (0.0-0.8) H 05/17/17 04:45 Eos # 0.1 K/mm3 (0.0-0.4) 05/17/17 04:45 Baso # 0.2 K/mm3 (0.0-0.1) H 05/17/17 04:45 Add Manual Diff Complete 05/16/17 04:00 Total Counted 100 05/16/17 04:00 Seg Neutrophils % 87.5 % (40.0-70.0) H 05/17/17 04:45 Seg Neuts % (Manual) 65.0 % (40.0-70.0) 05/16/17 04:00 Band Neutrophils % 12.0 % 05/16/17 04:00 Lymphocytes % (Manual) 9.0 % (13.4-35.0) L 05/16/17 04:00 Reactive Lymphs % (Man) 0 % 05/16/17 04:00 Monocytes % (Manual) 14.0 % (0.0-7.3) H 05/16/17 04:00 Eosinophils % (Manual) 0 % (0.0-4.3) 05/16/17 04:00 Basophils % (Manual) 0 % (0.0-1.8) 05/16/17 04:00 Metamyelocytes % 0 % 05/16/17 04:00 Myelocytes % 0 % 05/16/17 04:00 Promyelocytes % 0 % 05/16/17 04:00 Blast Cells % 0 % 05/16/17 04:00 Nucleated RBC % Not Reportable 05/16/17 04:00 Seg Neutrophils # 14.6 K/mm3 (1.8-7.7) H 05/17/17 04:45 Seg Neutrophils # Man 15.3 K/mm3 (1.8-7.7) H 05/16/17 04:00 Band Neutrophils # 2.8 K/mm3 05/16/17 04:00 Lymphocytes # (Manual) 2.1 K/mm3 (1.2-5.4) 05/16/17 04:00 Abs React Lymphs (Man) 0.0 K/mm3 05/16/17 04:00 Monocytes # (Manual) 3.3 K/mm3 (0.0-0.8) H 05/16/17 04:00 Eosinophils # (Manual) 0.0 K/mm3 (0.0-0.4) 05/16/17 04:00 Basophils # (Manual) 0.0 K/mm3 (0.0-0.1) 05/16/17 04:00 Metamyelocytes # 0.0 K/mm3 05/16/17 04:00 Myelocytes # 0.0 K/mm3 05/16/17 04:00 Promyelocytes # 0.0 K/mm3 05/16/17 04:00 Blast Cells # 0.0 K/mm3 05/16/17 04:00 WBC Morphology Not Reportable 05/16/17 04:00 Hypersegmented Neuts Not Reportable 05/16/17 04:00 Hyposegmented Neuts Not Reportable 05/16/17 04:00 Hypogranular Neuts Not Reportable 05/16/17 04:00 Smudge Cells Not Reportable 05/16/17 04:00 Toxic Granulation Not Reportable 05/16/17 04:00 Toxic Vacuolation Not Reportable 05/16/17 04:00 Dohle Bodies Not Reportable 05/16/17 04:00 Pelger-Huet Anomaly Not Reportable 05/16/17 04:00 Anthony Rods Not Reportable 05/16/17 04:00 Platelet Estimate Appears normal 05/16/17 04:00 Clumped Platelets Not Reportable 05/16/17 04:00 Plt Clumps, EDTA Not Reportable 05/16/17 04:00 Large Platelets Not Reportable 05/16/17 04:00 Giant Platelets Not Reportable 05/16/17 04:00 Platelet Satelliting Not Reportable 05/16/17 04:00 Plt Morphology Comment Not Reportable 05/16/17 04:00 RBC Morphology Not Reportable 05/16/17 04:00 Dimorphic RBCs Not Reportable 05/16/17 04:00 Polychromasia Not Reportable 05/16/17 04:00 Hypochromasia 1+ 05/16/17 04:00 Poikilocytosis Not Reportable 05/16/17 04:00 Anisocytosis 1+ 05/16/17 04:00 Microcytosis Not Reportable 05/16/17 04:00 Macrocytosis Not Reportable 05/16/17 04:00 Spherocytes Not Reportable 05/16/17 04:00 Pappenheimer Bodies Not Reportable 05/16/17 04:00 Sickle Cells Not Reportable 05/16/17 04:00 Target Cells Not Reportable 05/16/17 04:00 Tear Drop Cells Few 05/16/17 04:00 Ovalocytes Few 05/16/17 04:00 Stomatocytes Few 05/16/17 04:00 Helmet Cells Not Reportable 05/16/17 04:00 [place] Bodies Not Reportable 05/16/17 04:00 [place] Rings Not Reportable 05/16/17 04:00 Anthony Cells Not Reportable 05/16/17 04:00 Bite Cells Not Reportable 05/16/17 04:00 Crenated Cell Not Reportable 05/16/17 04:00 Elliptocytes Few 05/16/17 04:00 Acanthocytes (Spur) Not Reportable 05/16/17 04:00 Rouleaux Not Reportable 05/16/17 04:00 Hemoglobin C Crystals Not Reportable 05/16/17 04:00 Schistocytes Not Reportable 05/16/17 04:00 Malaria parasites Not Reportable 05/16/17 04:00 Jose Bodies Not Reportable 05/16/17 04:00 Hem Pathologist Commnt No 05/16/17 04:00 PT 14.4 Sec. (12.2-14.9) 05/17/17 04:45 INR 1.06 (0.87-1.13) 05/17/17 04:45 APTT 27.5 Sec. (24.2-36.6) 05/17/17 04:45 POC ABG pH 7.450 (7.35-7.45) 05/12/17 13:10 POC ABG pCO2 36.7 (35-45) 05/12/17 13:10 POC ABG pO2 66 (80-105) L 05/12/17 13:10 POC ABG HCO3 25.5 05/12/17 13:10 POC ABG Total CO2 27 05/12/17 13:10 POC ABG O2 Sat 94 05/12/17 13:10 POC ABG Base Excess 2 05/12/17 13:10 FiO2 25 % 05/12/17 13:10 Sodium 134 mmol/L (137-145) L 05/17/17 04:45 Potassium 4.8 mmol/L (3.6-5.0) 05/17/17 04:45 Chloride 89.3 mmol/L (98-107) L 05/17/17 04:45 Carbon Dioxide 21 mmol/L (22-30) L 05/17/17 04:45 Anion Gap 29 mmol/L 05/17/17 04:45 BUN 60 mg/dL (7-17) H 05/17/17 04:45 Creatinine 6.1 mg/dL (0.7-1.2) H 05/17/17 04:45 Estimated GFR 7 ml/min 05/17/17 04:45 BUN/Creatinine Ratio 10 % 05/17/17 04:45 Glucose 87 mg/dL (65-100) 05/17/17 04:45 POC Glucose 145 (70-105) H 05/18/17 08:01 Hemoglobin A1c 5.5 % (4-6) 05/16/17 04:00 Lactic Acid 2.60 mmol/L (0.7-2.0) H* 05/12/17 16:05 Calcium 8.9 mg/dL (8.4-10.2) 05/17/17 04:45 Total Bilirubin 0.50 mg/dL (0.1-1.2) 05/17/17 04:45 AST 22 units/L (5-40) 05/17/17 04:45 ALT 48 units/L (7-56) 05/17/17 04:45 Alkaline Phosphatase 226 units/L (35-129) H 05/17/17 04:45 Ammonia 34.0 umol/L (25-60) 05/17/17 04:45 Total Creatine Kinase 24 units/L (30-135) L 05/09/17 14:00 CK-MB (CK-2) 2.2 ng/mL (0.0-4.0) 05/09/17 14:00 CK-MB (CK-2) Rel Index 9.1 (0-4) H 05/09/17 14:00 Troponin T 0.654 ng/mL (0.00-0.029) H* 05/09/17 14:00 C-Reactive Protein 14.70 mg/dL (0.00-1.30) H 05/15/17 12:15 Total Protein 7.6 g/dL (6.3-8.2) 05/17/17 04:45 Albumin 3.5 g/dL (3.9-5) L 05/17/17 04:45 Albumin/Globulin Ratio 0.9 % 05/17/17 04:45 Triglycerides 125 mg/dL (2-149) 05/09/17 06:00 Cholesterol 73 mg/dL (50-199) 05/09/17 06:00 LDL Cholesterol Direct 21 mg/dL (50-130) L 05/09/17 06:00 HDL Cholesterol 27 mg/dL (40-59) L 05/09/17 06:00 Cholesterol/HDL Ratio 2.70 % 05/09/17 06:00 Urine Color Yellow (Yellow) 05/08/17 Unknown Urine Turbidity Clear (Clear) 05/08/17 Unknown Urine pH 7.0 (5.0-7.0) 05/08/17 Unknown Ur Specific [place] 1.014 (1.003-1.030) 05/08/17 Unknown Urine Protein 100 mg/dl mg/dL (Negative) 05/08/17 Unknown Urine Glucose (UA) 150 mg/dL (Negative) 05/08/17 Unknown Urine Ketones Neg mg/dL (Negative) 05/08/17 Unknown Urine Blood Sm (Negative) 05/08/17 Unknown Urine Nitrite Neg (Negative) 05/08/17 Unknown Urine Bilirubin Neg (Negative) 05/08/17 Unknown Urine Urobilinogen < 2.0 mg/dL (<2.0) 05/08/17 Unknown Ur Leukocyte Esterase Tr (Negative) 05/08/17 Unknown Urine WBC (Auto) 16.0 /HPF (0.0-6.0) H 05/08/17 Unknown Urine RBC (Auto) 3.0 /HPF (0.0-6.0) 05/08/17 Unknown U Epithel Cells (Auto) < 1.0 /HPF (0-13.0) 05/08/17 Unknown Urine Bacteria (Auto) 1+ /HPF (Negative) 05/08/17 Unknown Salicylates < 0.3 mg/dL (2.8-20.0) L 05/08/17 21:35 Acetaminophen < 15.0 ug/mL (10.0-30.0) 05/08/17 21:35 Hepatitis A IgM Ab Non-reactive (NonReactive) 05/09/17 17:00 Hep Bs Antigen Non-reactive (Negative) 05/09/17 17:00 Hep B Core IgM Ab Non-reactive (NonReactive) 05/09/17 17:00 Hepatitis C Antibody Reactive (NonReactive) A 05/09/17 17:00
[2017-05-18] MEDS: DESYREL PO SCH (21:37)
[2017-05-19] MEDS: PROVENTIL IH SCH ×4 (01:32→19:34)
[2017-05-19 03:38] LABS: Basophils % (Auto) 0.2 % (0.0-1.8); Hematocrit 30.2 % (30.3-42.9); Hemoglobin 9.8 gm/dl (10.1-14.3); Lymphocytes # (Auto) 0.5 K/mm3 (1.2-5.4); Lymphocytes % (Auto) 7.1 % (13.4-35.0); Mean Corpuscular HGB Conc 33 % (30-34); Mean Corpuscular Hemoglobin 34 pg (28-32); Mean Corpuscular Volume 105 fl (79-97); Monocytes # (Auto) 0.4 K/mm3 (0.0-0.8); Monocytes % (Auto) 6.2 % (0.0-7.3); Platelet Count 257 K/mm3 (140-440); Red Blood Count 2.88 M/mm3 (3.65-5.03)
[2017-05-19 03:42] LABS: Red Cell Distribution Width 23.6 % (13.2-15.2)
[2017-05-19 03:58] LABS: Calcium 8.9 mg/dL (8.4-10.2); Magnesium 2.2 mg/dL (1.7-2.3)
[2017-05-19] MEDS: NEURONTIN PO SCH ×3 (06:13→22:21)
[2017-05-19] MEDS: PROAMATINE PO SCH ×3 (06:13→20:13)
[2017-05-19] MEDS: NOVOLOG SUB-Q SCH ×3 (07:27→22:23)
[2017-05-19] MEDS: RENVELA PO SCH ×2 (08:57→11:35)
[2017-05-19] MEDS: LEVOPHED 8 MG in NACL 0.9% 250ML 242 ML IV SCH (08:58)
--- NOTE | 2017-05-19 09:02 | Progress Note ---
Assessment and Plan Assessment: Acute on chronic systolic heart failure- improving ICMP - echo 04/17/2017 showed EF 40% Elevated troponins - ECG with NAF; pt with no c/o chest pain; currently nonspecific in setting of acutely decompensated HF, sepsis, and ESRD Acute respiratory failure - s/p extubation AMS - head CT with NAF MRSA pneumonia/atelectasis Septic shock ESRD on HD - TTS HD schedule CAD, MA with PCI of mid LAD and mid circ at [facility] (01/20/2016), NSTEMI with subacute left circ and LAD stent thrombosis s/p stent of left circ and balloon angioplasty alone of LAD (02/22/2016) DM H/o HTN - with hypotension since admission HLP Anemia Hepatitis C Moderate to severe TR Pulmonary HTN - RVSP 57.9mmHg Plan: Volume optimization per nephrology. Wean pressors as tolerated. No indication for repeat echo given recent echo 04/17/2017. No BB, ACEI/ARB, and/or anti-hypertensives at this time given persistent hypotension since admission. The patient has been seen in conjunction with Dr. Abdias Monreal who agrees with the assessment and plan of care. Subjective Date of service: 05/19/17 Principal diagnosis: MRSA pneumonia, shock,sepsis,ESRD Interval history: pt resting in bed, A&O, no current complaints. Remains on levophed gtt. Objective Last Vital Signs Temp 94.5 F L 05/19/17 08:00 Pulse 89 05/19/17 08:15 Resp 24 05/19/17 08:15 BP 100/58 05/19/17 08:15 Pulse Ox 100 05/19/17 08:15 - Physical Examination General: No Apparent Distress HEENT: Positive: PERRL, Normocephaly, Mucus Membranes Moist Neck: Positive: neck supple, trachea midline Cardiac: Positive: Reg Rate and Rhythm, S1/S2 Lungs: Positive: Decreased Breath Sounds, Rhonchi Neuro: Positive: Grossly Intact Abdomen: Positive: Soft. Negative: Tender Skin: Positive: Clear. Negative: Rash, Wound Musculoskeletal: No Fluid Collection, No Pain, Normal Range of Motion Extremities: Absent: edema - Labs and Meds CBC 05/19/17 Range/Units 03:00 WBC 6.8 (4.5-11.0) K/mm3 RBC 2.88 L (3.65-5.03) M/mm3 Hgb 9.8 L (10.1-14.3) gm/dl Hct 30.2 L (30.3-42.9) % Plt Count 257 (140-440) K/mm3 Lymph # 0.5 L (1.2-5.4) K/mm3 Christian # 0.4 (0.0-0.8) K/mm3 Eos # 0.0 (0.0-0.4) K/mm3 Baso # 0.0 (0.0-0.1) K/mm3 Comprehensive Metabolic Panel 05/19/17 Range/Units 03:00 Sodium 136 L (137-145) mmol/L Potassium 4.9 (3.6-5.0) mmol/L Chloride 90.1 L (98-107) mmol/L Carbon Dioxide 24 (22-30) mmol/L BUN 49 H (7-17) mg/dL Creatinine 4.8 H (0.7-1.2) mg/dL Glucose 126 H (65-100) mg/dL Calcium 8.9 (8.4-10.2) mg/dL - Imaging and Cardiology EKG: report reviewed, image reviewed Cardiac cath: report reviewed (MA and PCI of mid LAD and mid circ on 01/20/2016; subacute left circ and LAD stent thrombosis s/p stent of left circ and balloon angioplasty alone of LAD (02/22/2016)) - Telemetry EKG Rhythm: Sinus Rhythm - EKG Sinus rhythms and dysrhythmias: sinus rhythm AV and intraventricular conduction: right bundle branch block (incomplete)
--- NOTE | 2017-05-19 10:37 | Progress Note ---
Assessment and Plan 56 y/o female with acute respiratory failure, most likely secondary to volume overload and altered mental status, exact etiology unknown, now with persistent hypotension of unknown etiology. 1. Continue Midodrine 10 TID, now have scheduled hydrocortisone given hypothermia but response in BP to steroid given yesterday. 2. Continue supplemental O2, wean for sats >88% 3. Bipap PRN 4. Will monitor temperature. If continues to be low, will obtain rectal temp CCT 31 minutes. Subjective Date of service: 05/19/17 Principal diagnosis: MRSA pneumonia, shock,sepsis,ESRD Interval history: No acute events. Levophed, down to 3mcgs. Hypothermic this am, but this was an oral temp. Objective Vital Signs - 12hr 05/18/17 05/18/17 05/18/17 22:45 23:00 23:15 Temperature Pulse Rate 89 89 89 Pulse Rate [ Apical] Pulse Rate [ Posterior Bilateral Throughout] Respiratory 29 H 25 H 22 Rate Respiratory Rate [Posterior Bilateral Throughout] Blood Pressure 105/69 98/62 98/62 O2 Sat by Pulse 100 100 100 Oximetry 05/18/17 05/18/17 05/19/17 23:30 23:45 00:00 Temperature 97.5 F L Pulse Rate 89 89 90 Pulse Rate [ Apical] Pulse Rate [ Posterior Bilateral Throughout] Respiratory 25 H 24 21 Rate Respiratory Rate [Posterior Bilateral Throughout] Blood Pressure 107/64 107/64 103/63 O2 Sat by Pulse 100 100 100 Oximetry 05/19/17 05/19/17 05/19/17 00:15 00:30 00:45 Temperature Pulse Rate 91 H 91 H 91 H Pulse Rate [ Apical] Pulse Rate [ Posterior Bilateral Throughout] Respiratory 26 H 28 H 27 H Rate Respiratory Rate [Posterior Bilateral Throughout] Blood Pressure 103/63 110/67 103/63 O2 Sat by Pulse 100 100 96 Oximetry 05/19/17 05/19/17 05/19/17 01:00 01:15 01:30 Temperature Pulse Rate 90 90 89 Pulse Rate [ Apical] Pulse Rate [ Posterior Bilateral Throughout] Respiratory 27 H 24 24 Rate Respiratory Rate [Posterior Bilateral Throughout] Blood Pressure 110/66 110/67 108/65 O2 Sat by Pulse 100 74 L 100 Oximetry 05/19/17 05/19/17 05/19/17 01:32 01:43 01:45 Temperature Pulse Rate 90 Pulse Rate [ Apical] Pulse Rate [ 89 89 Posterior Bilateral Throughout] Respiratory 23 Rate Respiratory 18 18 Rate [Posterior Bilateral Throughout] Blood Pressure 108/65 O2 Sat by Pulse 100 Oximetry 05/19/17 05/19/17 05/19/17 02:00 02:15 02:30 Temperature Pulse Rate 88 88 88 Pulse Rate [ Apical] Pulse Rate [ Posterior Bilateral Throughout] Respiratory 23 22 23 Rate Respiratory Rate [Posterior Bilateral Throughout] Blood Pressure 100/60 100/60 98/60 O2 Sat by Pulse 100 100 100 Oximetry 05/19/17 05/19/17 05/19/17 02:45 03:00 03:15 Temperature Pulse Rate 87 87 88 Pulse Rate [ Apical] Pulse Rate [ Posterior Bilateral Throughout] Respiratory 22 23 22 Rate Respiratory Rate [Posterior Bilateral Throughout] Blood Pressure 98/60 101/59 101/59 O2 Sat by Pulse 100 100 100 Oximetry 05/19/17 05/19/17 05/19/17 03:30 03:45 04:00 Temperature 98.0 F Pulse Rate 88 90 89 Pulse Rate [ Apical] Pulse Rate [ Posterior Bilateral Throughout] Respiratory 20 22 30 H Rate Respiratory Rate [Posterior Bilateral Throughout] Blood Pressure 101/62 101/59 96/68 O2 Sat by Pulse 99 95 100 Oximetry 05/19/17 05/19/17 05/19/17 04:15 04:30 04:45 Temperature Pulse Rate 91 H 91 H 92 H Pulse Rate [ Apical] Pulse Rate [ Posterior Bilateral Throughout] Respiratory 26 H 30 H 28 H Rate Respiratory Rate [Posterior Bilateral Throughout] Blood Pressure 101/62 110/68 110/68 O2 Sat by Pulse 100 100 Oximetry 05/19/17 05/19/17 05/19/17 05:00 05:15 05:30 Temperature Pulse Rate 92 H 93 H 93 H Pulse Rate [ Apical] Pulse Rate [ Posterior Bilateral Throughout] Respiratory 25 H 27 H 22 Rate Respiratory Rate [Posterior Bilateral Throughout] Blood Pressure 99/65 99/65 97/60 O2 Sat by Pulse 100 98 90 Oximetry 05/19/17 05/19/17 05/19/17 05:45 06:00 06:15 Temperature Pulse Rate 92 H 91 H 88 Pulse Rate [ Apical] Pulse Rate [ Posterior Bilateral Throughout] Respiratory 26 H 21 22 Rate Respiratory Rate [Posterior Bilateral Throughout] Blood Pressure 97/60 92/56 92/56 O2 Sat by Pulse 83 L 84 Oximetry 05/19/17 05/19/17 05/19/17 06:30 06:45 07:01 Temperature Pulse Rate 91 H 91 H 89 Pulse Rate [ Apical] Pulse Rate [ Posterior Bilateral Throughout] Respiratory 22 21 22 Rate Respiratory Rate [Posterior Bilateral Throughout] Blood Pressure 96/63 96/63 96/63 O2 Sat by Pulse 93 Oximetry 05/19/17 05/19/17 05/19/17 07:10 07:15 07:30 Temperature Pulse Rate 90 90 Pulse Rate [ 88 Apical] Pulse Rate [ Posterior Bilateral Throughout] Respiratory 19 22 Rate Respiratory Rate [Posterior Bilateral Throughout] Blood Pressure 96/63 93/52 O2 Sat by Pulse 100 98 99 Oximetry 05/19/17 05/19/17 05/19/17 07:45 08:00 08:15 Temperature 94.5 F L Pulse Rate 90 91 H 89 Pulse Rate [ Apical] Pulse Rate [ Posterior Bilateral Throughout] Respiratory 23 23 24 Rate Respiratory Rate [Posterior Bilateral Throughout] Blood Pressure 93/52 100/58 100/58 O2 Sat by Pulse 99 99 100 Oximetry Constitutional: no acute distress, alert ENT: oropharynx moist Neck: supple Effort: normal Ascultation: Bilateral: diminished breath sounds, rales Percussion: Bilateral: not dull Cardiovascular: regular rate and rhythm (no mrg) Gastrointestinal: normoactive bowel sounds, soft, non-tender Integumentary: other (Patsy left-sided face) Extremities: no cyanosis, no edema Neurologic: normal mental status, non-focal exam, pupils equal and round, CN II- XII normal, motor strength normal and Psychiatric: mood appropriate, affect normal CBC and BMP: 05/19/17 03:00 05/19/17 03:00 ABG, PT/INR, D-dimer: ABG POC ABG pH 7.450 (7.35-7.45) 05/12/17 13:10 POC ABG pCO2 36.7 (35-45) 05/12/17 13:10 POC ABG pO2 66 (80-105) L 05/12/17 13:10 POC ABG HCO3 25.5 05/12/17 13:10 POC ABG Total CO2 27 05/12/17 13:10 POC ABG O2 Sat 94 05/12/17 13:10 PT/INR, D-dimer PT 14.4 Sec. (12.2-14.9) 05/17/17 04:45 INR 1.06 (0.87-1.13) 05/17/17 04:45 Abnormal lab findings: Abnormal Labs 05/08/17 05/08/17 05/08/17 21:25 21:25 21:25 WBC RBC 2.55 L Hgb 8.9 L Hct 28.1 L MCV 111 H MCH 35 H RDW 25.4 H Lymph % (Auto) [place] % (Auto) Lymph # [place] # Baso # Seg Neutrophils % Seg Neuts % (Manual) 92.0 H Lymphocytes % (Manual) 6.0 L Monocytes % (Manual) Nucleated RBC % Seg Neutrophils # Seg Neutrophils # Man 9.3 H Lymphocytes # (Manual) 0.6 L Monocytes # (Manual) PT 15.2 H INR 1.14 H POC ABG pH POC ABG pCO2 POC ABG pO2 Sodium Potassium Chloride Carbon Dioxide BUN Creatinine Glucose POC Glucose Lactic Acid 2.50 H* Calcium AST ALT Alkaline Phosphatase Total Creatine Kinase CK-MB (CK-2) Rel Index Troponin T C-Reactive Protein Total Protein Albumin LDL Cholesterol Direct HDL Cholesterol Urine WBC (Auto) Salicylates Hepatitis C Antibody 05/08/17 05/08/17 05/08/17 21:35 22:04 22:42 WBC RBC Hgb Hct MCV MCH RDW Lymph % (Auto) [place] % (Auto) Lymph # [place] # Baso # Seg Neutrophils % Seg Neuts % (Manual) Lymphocytes % (Manual) Monocytes % (Manual) Nucleated RBC % Seg Neutrophils # Seg Neutrophils # Man Lymphocytes # (Manual) Monocytes # (Manual) PT INR POC ABG pH 7.271 L POC ABG pCO2 56.5 H POC ABG pO2 30 L Sodium Potassium Chloride 107.8 H Carbon Dioxide BUN 22 H Creatinine 2.6 H Glucose 202 H POC Glucose Lactic Acid Calcium 7.3 L AST ALT Alkaline Phosphatase 258 H Total Creatine Kinase CK-MB (CK-2) Rel Index Troponin T C-Reactive Protein Total Protein 5.2 L Albumin 2.9 L LDL Cholesterol Direct HDL Cholesterol Urine WBC (Auto) Salicylates < 0.3 L Hepatitis C Antibody 05/08/17 05/09/17 05/09/17 Unknown 00:24 06:00 WBC RBC Hgb Hct MCV MCH RDW Lymph % (Auto) [place] % (Auto) Lymph # [place] # Baso # Seg Neutrophils % Seg Neuts % (Manual) Lymphocytes % (Manual) Monocytes % (Manual) Nucleated RBC % Seg Neutrophils # Seg Neutrophils # Man Lymphocytes # (Manual) Monocytes # (Manual) PT INR POC ABG pH 7.283 L POC ABG pCO2 49.9 H POC ABG pO2 249 H Sodium Potassium Chloride Carbon Dioxide BUN Creatinine Glucose POC Glucose Lactic Acid Calcium AST ALT Alkaline Phosphatase Total Creatine Kinase 19 L CK-MB (CK-2) Rel Index 11.0 H Troponin T 0.612 H* C-Reactive Protein Total Protein Albumin LDL Cholesterol Direct 21 L HDL Cholesterol 27 L Urine WBC (Auto) 16.0 H Salicylates Hepatitis C Antibody 05/09/17 05/09/17 05/09/17 06:00 06:00 08:52 WBC 11.7 H RBC 2.67 L Hgb 9.3 L Hct 30.0 L MCV 112 H MCH 35 H RDW 24.4 H Lymph % (Auto) [place] % (Auto) Lymph # [place] # Baso # Seg Neutrophils % Seg Neuts % (Manual) Lymphocytes % (Manual) Monocytes % (Manual) Nucleated RBC % Seg Neutrophils # Seg Neutrophils # Man Lymphocytes # (Manual) Monocytes # (Manual) PT INR POC ABG pH 7.323 L POC ABG pCO2 POC ABG pO2 143 H Sodium Potassium Chloride Carbon Dioxide BUN 24 H Creatinine 2.9 H Glucose 172 H POC Glucose Lactic Acid Calcium 7.7 L AST ALT Alkaline Phosphatase Total Creatine Kinase CK-MB (CK-2) Rel Index Troponin T C-Reactive Protein Total Protein Albumin LDL Cholesterol Direct HDL Cholesterol Urine WBC (Auto) Salicylates Hepatitis C Antibody 05/09/17 05/09/17 05/11/17 14:00 17:00 06:09 WBC 11.4 H RBC 2.66 L Hgb 9.1 L Hct 29.3 L MCV 110 H MCH 34 H RDW 23.1 H Lymph % (Auto) 4.2 L [place] % (Auto) 12.7 H Lymph # 0.5 L [place] # 1.4 H Baso # Seg Neutrophils % 82.5 H Seg Neuts % (Manual) Lymphocytes % (Manual) Monocytes % (Manual) Nucleated RBC % Seg Neutrophils # 9.4 H Seg Neutrophils # Man Lymphocytes # (Manual) Monocytes # (Manual) PT INR POC ABG pH POC ABG pCO2 POC ABG pO2 Sodium Potassium Chloride Carbon Dioxide BUN Creatinine Glucose POC Glucose Lactic Acid Calcium AST ALT Alkaline Phosphatase Total Creatine Kinase 24 L CK-MB (CK-2) Rel Index 9.1 H Troponin T 0.654 H* C-Reactive Protein Total Protein Albumin LDL Cholesterol Direct HDL Cholesterol Urine WBC (Auto) Salicylates Hepatitis C Antibody Reactive A 05/11/17 05/11/17 05/11/17 06:09 08:20 11:34 WBC RBC Hgb Hct MCV MCH RDW Lymph % (Auto) [place] % (Auto) Lymph # [place] # Baso # Seg Neutrophils % Seg Neuts % (Manual) Lymphocytes % (Manual) Monocytes % (Manual) Nucleated RBC % Seg Neutrophils # Seg Neutrophils # Man Lymphocytes # (Manual) Monocytes # (Manual) PT INR POC ABG pH POC ABG pCO2 POC ABG pO2 Sodium Potassium Chloride 95.6 L Carbon Dioxide 20 L BUN 24 H Creatinine 3.4 H Glucose 134 H POC Glucose 154 H 149 H Lactic Acid Calcium AST ALT Alkaline Phosphatase Total Creatine Kinase CK-MB (CK-2) Rel Index Troponin T C-Reactive Protein Total Protein Albumin LDL Cholesterol Direct HDL Cholesterol Urine WBC (Auto) Salicylates Hepatitis C Antibody 05/11/17 05/11/17 05/11/17 15:30 16:27 21:58 WBC RBC Hgb Hct MCV MCH RDW Lymph % (Auto) [place] % (Auto) Lymph # [place] # Baso # Seg Neutrophils % Seg Neuts % (Manual) Lymphocytes % (Manual) Monocytes % (Manual) Nucleated RBC % Seg Neutrophils # Seg Neutrophils # Man Lymphocytes # (Manual) Monocytes # (Manual) PT INR POC ABG pH POC ABG pCO2 POC ABG pO2 Sodium Potassium Chloride Carbon Dioxide BUN Creatinine Glucose POC Glucose 163 H 199 H Lactic Acid Calcium AST ALT Alkaline Phosphatase Total Creatine Kinase CK-MB (CK-2) Rel Index Troponin T C-Reactive Protein 44.70 H Total Protein Albumin LDL Cholesterol Direct HDL Cholesterol Urine WBC (Auto) Salicylates Hepatitis C Antibody 05/12/17 05/12/17 05/12/17 08:42 13:10 14:10 WBC RBC Hgb Hct MCV MCH RDW Lymph % (Auto) [place] % (Auto) Lymph # [place] # Baso # Seg Neutrophils % Seg Neuts % (Manual) Lymphocytes % (Manual) Monocytes % (Manual) Nucleated RBC % Seg Neutrophils # Seg Neutrophils # Man Lymphocytes # (Manual) Monocytes # (Manual) PT INR POC ABG pH POC ABG pCO2 POC ABG pO2 66 L Sodium Potassium Chloride Carbon Dioxide BUN Creatinine Glucose POC Glucose 190 H 162 H Lactic Acid Calcium AST ALT Alkaline Phosphatase Total Creatine Kinase CK-MB (CK-2) Rel Index Troponin T C-Reactive Protein Total Protein Albumin LDL Cholesterol Direct HDL Cholesterol Urine WBC (Auto) Salicylates Hepatitis C Antibody 05/12/17 05/12/17 05/12/17 15:46 16:05 21:42 WBC RBC Hgb Hct MCV MCH RDW Lymph % (Auto) [place] % (Auto) Lymph # [place] # Baso # Seg Neutrophils % Seg Neuts % (Manual) Lymphocytes % (Manual) Monocytes % (Manual) Nucleated RBC % Seg Neutrophils # Seg Neutrophils # Man Lymphocytes # (Manual) Monocytes # (Manual) PT INR POC ABG pH POC ABG pCO2 POC ABG pO2 Sodium Potassium Chloride Carbon Dioxide BUN Creatinine Glucose POC Glucose 153 H 153 H Lactic Acid 2.60 H* Calcium AST ALT Alkaline Phosphatase Total Creatine Kinase CK-MB (CK-2) Rel Index Troponin T C-Reactive Protein Total Protein Albumin LDL Cholesterol Direct HDL Cholesterol Urine WBC (Auto) Salicylates Hepatitis C Antibody 05/13/17 05/13/17 05/13/17 05:12 05:30 05:30 WBC 22.0 H RBC 3.02 L Hgb 9.9 L Hct MCV 105 H MCH 33 H RDW 22.9 H Lymph % (Auto) [place] % (Auto) Lymph # [place] # Baso # Seg Neutrophils % Seg Neuts % (Manual) 89.0 H Lymphocytes % (Manual) 6.0 L Monocytes % (Manual) Nucleated RBC % 1.0 H Seg Neutrophils # Seg Neutrophils # Man 19.6 H Lymphocytes # (Manual) Monocytes # (Manual) 0.9 H PT INR POC ABG pH POC ABG pCO2 POC ABG pO2 Sodium Potassium Chloride 90.8 L Carbon Dioxide 21 L BUN 28 H Creatinine 3.1 H Glucose 172 H POC Glucose 182 H Lactic Acid Calcium AST ALT Alkaline Phosphatase Total Creatine Kinase CK-MB (CK-2) Rel Index Troponin T C-Reactive Protein Total Protein Albumin LDL Cholesterol Direct HDL Cholesterol Urine WBC (Auto) Salicylates Hepatitis C Antibody 05/13/17 05/13/17 05/13/17 11:52 18:01 23:31 WBC RBC Hgb Hct MCV MCH RDW Lymph % (Auto) [place] % (Auto) Lymph # [place] # Baso # Seg Neutrophils % Seg Neuts % (Manual) Lymphocytes % (Manual) Monocytes % (Manual) Nucleated RBC % Seg Neutrophils # Seg Neutrophils # Man Lymphocytes # (Manual) Monocytes # (Manual) PT INR POC ABG pH POC ABG pCO2 POC ABG pO2 Sodium Potassium Chloride Carbon Dioxide BUN Creatinine Glucose POC Glucose 185 H 216 H 281 H Lactic Acid Calcium AST ALT Alkaline Phosphatase Total Creatine Kinase CK-MB (CK-2) Rel Index Troponin T C-Reactive Protein Total Protein Albumin LDL Cholesterol Direct HDL Cholesterol Urine WBC (Auto) Salicylates Hepatitis C Antibody 05/14/17 05/14/17 05/14/17 05:43 06:10 06:10 WBC 19.6 H RBC 3.61 L Hgb Hct MCV 104 H MCH 34 H RDW 23.4 H Lymph % (Auto) 8.6 L [place] % (Auto) Lymph # [place] # 1.3 H Baso # 0.2 H Seg Neutrophils % 82.5 H Seg Neuts % (Manual) Lymphocytes % (Manual) Monocytes % (Manual) Nucleated RBC % Seg Neutrophils # 16.2 H Seg Neutrophils # Man Lymphocytes # (Manual) Monocytes # (Manual) PT INR POC ABG pH POC ABG pCO2 POC ABG pO2 Sodium Potassium 3.4 L Chloride 89.1 L Carbon Dioxide BUN 32 H Creatinine 3.0 H Glucose 224 H POC Glucose 215 H Lactic Acid Calcium AST 85 H ALT 162 H Alkaline Phosphatase 347 H Total Creatine Kinase CK-MB (CK-2) Rel Index Troponin T C-Reactive Protein Total Protein 8.5 H Albumin LDL Cholesterol Direct HDL Cholesterol Urine WBC (Auto) Salicylates Hepatitis C Antibody 05/14/17 05/14/17 05/14/17 08:32 11:26 16:42 WBC RBC Hgb Hct MCV MCH RDW Lymph % (Auto) [place] % (Auto) Lymph # [place] # Baso # Seg Neutrophils % Seg Neuts % (Manual) Lymphocytes % (Manual) Monocytes % (Manual) Nucleated RBC % Seg Neutrophils # Seg Neutrophils # Man Lymphocytes # (Manual) Monocytes # (Manual) PT INR POC ABG pH POC ABG pCO2 POC ABG pO2 Sodium Potassium Chloride Carbon Dioxide BUN Creatinine Glucose POC Glucose 204 H 182 H 310 H Lactic Acid Calcium AST ALT Alkaline Phosphatase Total Creatine Kinase CK-MB (CK-2) Rel Index Troponin T C-Reactive Protein Total Protein Albumin LDL Cholesterol Direct HDL Cholesterol Urine WBC (Auto) Salicylates Hepatitis C Antibody 05/14/17 05/15/17 05/15/17 23:00 03:45 03:45 WBC 18.3 H RBC 3.42 L Hgb Hct MCV 105 H MCH 34 H RDW 23.0 H Lymph % (Auto) 10.4 L [place] % (Auto) 7.7 H Lymph # [place] # 1.4 H Baso # Seg Neutrophils % 79.5 H Seg Neuts % (Manual) Lymphocytes % (Manual) Monocytes % (Manual) Nucleated RBC % Seg Neutrophils # 14.6 H Seg Neutrophils # Man Lymphocytes # (Manual) Monocytes # (Manual) PT INR POC ABG pH POC ABG pCO2 POC ABG pO2 Sodium 132 L Potassium Chloride 88.4 L Carbon Dioxide BUN 29 H Creatinine 2.8 H Glucose 310 H POC Glucose 264 H Lactic Acid Calcium AST 54 H ALT 111 H Alkaline Phosphatase 318 H Total Creatine Kinase CK-MB (CK-2) Rel Index Troponin T C-Reactive Protein Total Protein Albumin 3.7 L LDL Cholesterol Direct HDL Cholesterol Urine WBC (Auto) Salicylates Hepatitis C Antibody 05/15/17 05/15/17 05/15/17 07:36 12:14 12:15 WBC RBC Hgb Hct MCV MCH RDW Lymph % (Auto) [place] % (Auto) Lymph # [place] # Baso # Seg Neutrophils % Seg Neuts % (Manual) Lymphocytes % (Manual) Monocytes % (Manual) Nucleated RBC % Seg Neutrophils # Seg Neutrophils # Man Lymphocytes # (Manual) Monocytes # (Manual) PT INR POC ABG pH POC ABG pCO2 POC ABG pO2 Sodium Potassium Chloride Carbon Dioxide BUN Creatinine Glucose POC Glucose 253 H > 500 H Lactic Acid Calcium AST ALT Alkaline Phosphatase Total Creatine Kinase CK-MB (CK-2) Rel Index Troponin T C-Reactive Protein 14.70 H Total Protein Albumin LDL Cholesterol Direct HDL Cholesterol Urine WBC (Auto) Salicylates Hepatitis C Antibody 05/15/17 05/15/17 05/15/17 12:15 15:43 22:26 WBC RBC Hgb Hct MCV MCH RDW Lymph % (Auto) [place] % (Auto) Lymph # [place] # Baso # Seg Neutrophils % Seg Neuts % (Manual) Lymphocytes % (Manual) Monocytes % (Manual) Nucleated RBC % Seg Neutrophils # Seg Neutrophils # Man Lymphocytes # (Manual) Monocytes # (Manual) PT INR POC ABG pH POC ABG pCO2 POC ABG pO2 Sodium Potassium Chloride Carbon Dioxide BUN Creatinine Glucose 336 H POC Glucose 288 H 243 H Lactic Acid Calcium AST ALT Alkaline Phosphatase Total Creatine Kinase CK-MB (CK-2) Rel Index Troponin T C-Reactive Protein Total Protein Albumin LDL Cholesterol Direct HDL Cholesterol Urine WBC (Auto) Salicylates Hepatitis C Antibody 05/16/17 05/16/17 05/16/17 04:00 04:00 07:26 WBC 23.5 H RBC 3.25 L Hgb Hct MCV 106 H MCH 33 H RDW 23.2 H Lymph % (Auto) [place] % (Auto) Lymph # [place] # Baso # Seg Neutrophils % Seg Neuts % (Manual) Lymphocytes % (Manual) 9.0 L Monocytes % (Manual) 14.0 H Nucleated RBC % Seg Neutrophils # Seg Neutrophils # Man 15.3 H Lymphocytes # (Manual) Monocytes # (Manual) 3.3 H PT INR POC ABG pH POC ABG pCO2 POC ABG pO2 Sodium Potassium Chloride 91.5 L Carbon Dioxide BUN 48 H Creatinine 4.5 H D Glucose POC Glucose 107 H Lactic Acid Calcium AST ALT Alkaline Phosphatase Total Creatine Kinase CK-MB (CK-2) Rel Index Troponin T C-Reactive Protein Total Protein Albumin LDL Cholesterol Direct HDL Cholesterol Urine WBC (Auto) Salicylates Hepatitis C Antibody 05/16/17 05/16/17 05/16/17 11:57 17:14 21:30 WBC RBC Hgb Hct MCV MCH RDW Lymph % (Auto) [place] % (Auto) Lymph # [place] # Baso # Seg Neutrophils % Seg Neuts % (Manual) Lymphocytes % (Manual) Monocytes % (Manual) Nucleated RBC % Seg Neutrophils # Seg Neutrophils # Man Lymphocytes # (Manual) Monocytes # (Manual) PT INR POC ABG pH POC ABG pCO2 POC ABG pO2 Sodium Potassium Chloride Carbon Dioxide BUN Creatinine Glucose POC Glucose 190 H 200 H 152 H Lactic Acid Calcium AST ALT Alkaline Phosphatase Total Creatine Kinase CK-MB (CK-2) Rel Index Troponin T C-Reactive Protein Total Protein Albumin LDL Cholesterol Direct HDL Cholesterol Urine WBC (Auto) Salicylates Hepatitis C Antibody 05/17/17 05/17/17 05/17/17 04:45 04:45 08:20 WBC 16.7 H RBC 3.08 L Hgb Hct MCV 106 H MCH 33 H RDW 23.3 H Lymph % (Auto) 3.8 L [place] % (Auto) Lymph # 0.6 L [place] # 1.1 H Baso # 0.2 H Seg Neutrophils % 87.5 H Seg Neuts % (Manual) Lymphocytes % (Manual) Monocytes % (Manual) Nucleated RBC % Seg Neutrophils # 14.6 H Seg Neutrophils # Man Lymphocytes # (Manual) Monocytes # (Manual) PT INR POC ABG pH POC ABG pCO2 POC ABG pO2 Sodium 134 L Potassium Chloride 89.3 L Carbon Dioxide 21 L BUN 60 H Creatinine 6.1 H Glucose POC Glucose 107 H Lactic Acid Calcium AST ALT Alkaline Phosphatase 226 H Total Creatine Kinase CK-MB (CK-2) Rel Index Troponin T C-Reactive Protein Total Protein Albumin 3.5 L LDL Cholesterol Direct HDL Cholesterol Urine WBC (Auto) Salicylates Hepatitis C Antibody 05/17/17 05/17/17 05/17/17 11:24 16:24 21:34 WBC RBC Hgb Hct MCV MCH RDW Lymph % (Auto) [place] % (Auto) Lymph # [place] # Baso # Seg Neutrophils % Seg Neuts % (Manual) Lymphocytes % (Manual) Monocytes % (Manual) Nucleated RBC % Seg Neutrophils # Seg Neutrophils # Man Lymphocytes # (Manual) Monocytes # (Manual) PT INR POC ABG pH POC ABG pCO2 POC ABG pO2 Sodium Potassium Chloride Carbon Dioxide BUN Creatinine Glucose POC Glucose 172 H 116 H 182 H Lactic Acid Calcium AST ALT Alkaline Phosphatase Total Creatine Kinase CK-MB (CK-2) Rel Index Troponin T C-Reactive Protein Total Protein Albumin LDL Cholesterol Direct HDL Cholesterol Urine WBC (Auto) Salicylates Hepatitis C Antibody 05/18/17 05/18/17 05/18/17 05:06 08:01 11:32 WBC RBC Hgb Hct MCV MCH RDW Lymph % (Auto) [place] % (Auto) Lymph # [place] # Baso # Seg Neutrophils % Seg Neuts % (Manual) Lymphocytes % (Manual) Monocytes % (Manual) Nucleated RBC % Seg Neutrophils # Seg Neutrophils # Man Lymphocytes # (Manual) Monocytes # (Manual) PT INR POC ABG pH POC ABG pCO2 POC ABG pO2 Sodium Potassium Chloride Carbon Dioxide BUN Creatinine Glucose POC Glucose 153 H 145 H 247 H Lactic Acid Calcium AST ALT Alkaline Phosphatase Total Creatine Kinase CK-MB (CK-2) Rel Index Troponin T C-Reactive Protein Total Protein Albumin LDL Cholesterol Direct HDL Cholesterol Urine WBC (Auto) Salicylates Hepatitis C Antibody 05/18/17 05/18/17 05/19/17 16:09 22:17 03:00 WBC RBC 2.88 L Hgb 9.8 L Hct 30.2 L MCV 105 H MCH 34 H RDW 23.6 H Lymph % (Auto) 7.1 L [place] % (Auto) Lymph # 0.5 L [place] # Baso # Seg Neutrophils % 86.5 H Seg Neuts % (Manual) Lymphocytes % (Manual) Monocytes % (Manual) Nucleated RBC % Seg Neutrophils # Seg Neutrophils # Man Lymphocytes # (Manual) Monocytes # (Manual) PT INR POC ABG pH POC ABG pCO2 POC ABG pO2 Sodium Potassium Chloride Carbon Dioxide BUN Creatinine Glucose POC Glucose 237 H 162 H Lactic Acid Calcium AST ALT Alkaline Phosphatase Total Creatine Kinase CK-MB (CK-2) Rel Index Troponin T C-Reactive Protein Total Protein Albumin LDL Cholesterol Direct HDL Cholesterol Urine WBC (Auto) Salicylates Hepatitis C Antibody 05/19/17 05/19/17 03:00 07:19 WBC RBC Hgb Hct MCV MCH RDW Lymph % (Auto) [place] % (Auto) Lymph # [place] # Baso # Seg Neutrophils % Seg Neuts % (Manual) Lymphocytes % (Manual) Monocytes % (Manual) Nucleated RBC % Seg Neutrophils # Seg Neutrophils # Man Lymphocytes # (Manual) Monocytes # (Manual) PT INR POC ABG pH POC ABG pCO2 POC ABG pO2 Sodium 136 L Potassium Chloride 90.1 L Carbon Dioxide BUN 49 H Creatinine 4.8 H Glucose 126 H POC Glucose 128 H Lactic Acid Calcium AST ALT Alkaline Phosphatase Total Creatine Kinase CK-MB (CK-2) Rel Index Troponin T C-Reactive Protein Total Protein Albumin LDL Cholesterol Direct HDL Cholesterol Urine WBC (Auto) Salicylates Hepatitis C Antibody
[2017-05-19] MEDS: SENSIPAR PO SCH ×2 (10:43→22:19)
[2017-05-19] MEDS: ZOLOFT PO SCH (10:43)
[2017-05-19] MEDS: HEPARIN SUB-Q SCH ×2 (10:43→22:21)
[2017-05-19] MEDS: BABY ASPIRIN PO SCH (10:44)
[2017-05-19] MEDS: HABITROL TD SCH (10:45)
[2017-05-19] MEDS: ZYVOX PO SCH ×2 (10:45→22:21)
[2017-05-19] MEDS ORDERED: NACL 0.9% 100 ML IV PRN (11:13)
--- NOTE | 2017-05-19 12:00 | Progress Note ---
Assessment and Plan Assessment: 1) Sepsis with septic shock: still pressors, unclear etiology of persistent hypotension ? adrenal insuf ?, leukocytosis resolved. Etiology most likely pneumonia. 2) Bilateral pneumonia: -tracheal asp + MRSA -CRP very high at 44 --> 14 -CT chest - ector alveolar densities, repeat CXR better 3) Resp failure - better 4) HCV / Ascitis 5) ESRD on HD 6) CAD 7) CHF with exacerbation 8) LALO - worsening on HD now 9) Recurrent falls 10) Diarrhea ? Plan: -f/u cortisol level -pending -continue zyvox day 9 -add flagyl - do not send C diff -contact isolation Thank you Dr Gutierrez for your consultation, will follow up with you. Tamera Butler MD Infectious Diseases Specialist [facility] [phone] Subjective Date of service: 05/19/17 Principal diagnosis: MRSA pneumonia, shock,sepsis,ESRD Interval history: Alert. Still on levophed at 3 mcg/min, no fever. Noted hypothermia and large loose BM Microbiology: Blood cultures: 05/09 neg 05/16 ngtd Urine cultures: Respiratory cultures: TA 05/09 MRSA Current Antimicrobials: zyvox 05/12 Previous Antimicrobials: Ceftriaxone Objective - Exam Narrative Exam: General appearance: alert talkative in NAD Eyes: anicteric sclerae, moist conjunctivae; no lid-lag; PERRLA HENT: Atraumatic Neck: Trachea midline; supple, no thyromegaly or lymphadenopathy Lungs: ector rhonchi CV: rrr Abdomen: Soft, non-tender Extremities: No peripheral edema or extremity lymphadenopathy Skin: +multiple ecchymoses left forehead Psych: somnolent confused Neuro: somnolent Moving all extermities Lines: No CVL / PICC - Constitutional Vitals: Vital Signs Temp Pulse Resp BP Pulse Ox 94.5 F L 89 24 100/58 100 05/19/17 08:00 05/19/17 08:15 05/19/17 08:15 05/19/17 08:15 05/19/17 08:15 Temperature -Last 24 Hours Temperature 94.5 F Temperature 98.0 F Temperature 97.5 F Temperature 97.3 F Temperature 97.7 F - Labs CBC & Chem 7: 05/19/17 03:00 05/19/17 03:00 Labs: Abnormal lab results 05/18/17 05/18/17 05/18/17 Range/Units 11:32 16:09 22:17 RBC (3.65-5.03) M/mm3 Hgb (10.1-14.3) gm/dl Hct (30.3-42.9) % MCV (79-97) fl MCH (28-32) pg RDW (13.2-15.2) % Lymph % (Auto) (13.4-35.0) % Lymph # (1.2-5.4) K/mm3 Seg Neutrophils % (40.0-70.0) % Sodium (137-145) mmol/L Chloride (98-107) mmol/L BUN (7-17) mg/dL Creatinine (0.7-1.2) mg/dL Glucose (65-100) mg/dL POC Glucose 247 H 237 H 162 H (70-105) 05/19/17 05/19/17 05/19/17 Range/Units 03:00 03:00 07:19 RBC 2.88 L (3.65-5.03) M/mm3 Hgb 9.8 L (10.1-14.3) gm/dl Hct 30.2 L (30.3-42.9) % MCV 105 H (79-97) fl MCH 34 H (28-32) pg RDW 23.6 H (13.2-15.2) % Lymph % (Auto) 7.1 L (13.4-35.0) % Lymph # 0.5 L (1.2-5.4) K/mm3 Seg Neutrophils % 86.5 H (40.0-70.0) % Sodium 136 L (137-145) mmol/L Chloride 90.1 L (98-107) mmol/L BUN 49 H (7-17) mg/dL Creatinine 4.8 H (0.7-1.2) mg/dL Glucose 126 H (65-100) mg/dL POC Glucose 128 H (70-105)
--- NOTE | 2017-05-19 15:14 | Progress Note ---
Assessment and Plan - Patient Problems (1) ESRD (end stage renal disease) Current Visit: Yes Status: Chronic Plan to address problem: Hemodialysis today for UF and clearance Fluid restriction of 1 liter per day Renally dose medications Monitor I/O's Obtain daily weights Assess dialysis needs daily (2) Diabetes mellitus Current Visit: Yes Status: Acute Plan to address problem: As per Attending (3) Acute hypoxemic respiratory failure Current Visit: No Status: Acute Plan to address problem: S/P intubation. On venturi mask. (4) Hypotension Current Visit: Yes Status: Acute Plan to address problem: Hypotension-On Levophed drip and Midodrine 10 mg po every 8 hours (5) Pneumonia Current Visit: No Status: Acute Qualifiers: Laterality: bilateral Plan to address problem: On Zyvox as per ID Subjective Date of service: 05/19/17 Principal diagnosis: MRSA pneumonia, shock,sepsis,ESRD Interval history: Patient seen lying in bed. Awake and alert. Remains on Levophed drip. Objective - Vital Signs Vital signs: Vital Signs - 12hr 05/19/17 05/19/17 05/19/17 03:15 03:30 03:45 Temperature Pulse Rate 88 88 90 Pulse Rate [ Apical] Respiratory 22 20 22 Rate Blood Pressure 101/59 101/62 101/59 O2 Sat by Pulse 100 99 95 Oximetry 05/19/17 05/19/17 05/19/17 04:00 04:15 04:30 Temperature 98.0 F Pulse Rate 89 91 H 91 H Pulse Rate [ Apical] Respiratory 30 H 26 H 30 H Rate Blood Pressure 96/68 101/62 110/68 O2 Sat by Pulse 100 100 Oximetry 05/19/17 05/19/17 05/19/17 04:45 05:00 05:15 Temperature Pulse Rate 92 H 92 H 93 H Pulse Rate [ Apical] Respiratory 28 H 25 H 27 H Rate Blood Pressure 110/68 99/65 99/65 O2 Sat by Pulse 100 100 98 Oximetry 05/19/17 05/19/17 05/19/17 05:30 05:45 06:00 Temperature Pulse Rate 93 H 92 H 91 H Pulse Rate [ Apical] Respiratory 22 26 H 21 Rate Blood Pressure 97/60 97/60 92/56 O2 Sat by Pulse 90 83 L 84 Oximetry 05/19/17 05/19/17 05/19/17 06:15 06:30 06:45 Temperature Pulse Rate 88 91 H 91 H Pulse Rate [ Apical] Respiratory 22 22 21 Rate Blood Pressure 92/56 96/63 96/63 O2 Sat by Pulse Oximetry 05/19/17 05/19/17 05/19/17 07:01 07:10 07:15 Temperature Pulse Rate 89 90 Pulse Rate [ 88 Apical] Respiratory 22 19 Rate Blood Pressure 96/63 96/63 O2 Sat by Pulse 93 100 98 Oximetry 05/19/17 05/19/17 05/19/17 07:30 07:45 08:00 Temperature 94.5 F L Pulse Rate 90 90 91 H Pulse Rate [ Apical] Respiratory 22 23 23 Rate Blood Pressure 93/52 93/52 100/58 O2 Sat by Pulse 99 99 99 Oximetry 05/19/17 08:15 Temperature Pulse Rate 89 Pulse Rate [ Apical] Respiratory 24 Rate Blood Pressure 100/58 O2 Sat by Pulse 100 Oximetry - General Appearance General appearance: well-developed, appears stated age EENT: ATNC, PERRL, hearing intact, vision intact Neck: no JVD, supple Respiratory: Present: Decreased Breath Sounds Cardiology: regular, S1S2 Gastrointestinal: normoactive bowel sounds Integumentary: warm and dry Neurologic: other (Awake and alert) Musculoskeletal: other (No edema) Psychiatric: cooperative - Lab 05/19/17 03:00 05/19/17 03:00 Most recent lab results Calcium 8.9 mg/dL (8.4-10.2) 05/19/17 03:00 Magnesium 2.20 mg/dL (1.7-2.3) 05/19/17 03:00
--- NOTE | 2017-05-19 16:51 | Progress Note ---
Assessment and Plan Assessment and plan: -- septic shock; pressor dependent on Levophed , midodrine, titrate systolic BP >100, map > 65 --Sepsis: MRSA pneumonia,on Zyvox, per ID , contact isolation --Leukocytosis; resolved ,f/u chest x-ray resolving infiltrates . --Type 2 diabetes mellitus; Accu-Chek sliding scale coverage ADA diet, and long- acting 70/30 insulin --Acute on chronic respiratory failure; secondary to fluid overload/MRSA pneumonia, BiPAP as needed --Metabolic encephalopathy on admission; s/p intubation --Poor oral nutrition ; nutrition supplements --Coronary artery disease s/p PCI : Stable --Cardiomyopathy ejection fraction of 40% 04/2016 --End-stage renal disease on hemodialysis, HD per schedule --Dyslipidemia; on lipid-lowering medications --DVT prophylaxis; SCD Cardiology, pulmonary, nephrology, ID following Physical therapy occupational therapy DC planning. Case management Disposition; titrate and DC Levophed, possible home with home health versus placement Plan medically stable Full CODE STATUS Critical care time 31 minutes History Interval history: Patient seen and evaluated medical records reviewed Patient feels slightly better, complains of generalized weakness Remains labile when dependent, patient is also receiving midodrine Alert and awake responding appropriately Vital signs reviewed Hospitalist Physical - Constitutional Vitals: Temp Pulse Resp BP Pulse Ox 94.5 F L 89 24 100/58 100 05/19/17 08:00 05/19/17 08:15 05/19/17 08:15 05/19/17 08:15 05/19/17 08:15 General appearance: Present: no acute distress, cachectic, disheveled - EENT Eyes: Present: PERRL, EOM intact - Neck Neck: Present: supple, normal ROM - Respiratory Respiratory effort: normal Respiratory: bilateral: diminished, negative: rales, rhonchi, wheezing - Cardiovascular Rhythm: regular Heart Sounds: Present: S1 & S2 - Extremities Extremities: no ischemia, No edema - Abdominal General gastrointestinal: soft, non-tender, non-distended, normal bowel sounds - Integumentary Integumentary: Present: clear, warm - Psychiatric Psychiatric: appropriate mood/affect, cooperative, other (confused at times) - Neurologic Neurologic: moves all extremities Results - Labs CBC & Chem 7: 05/19/17 03:00 05/19/17 03:00 Labs: Laboratory Last Values WBC 6.8 K/mm3 (4.5-11.0) 05/19/17 03:00 RBC 2.88 M/mm3 (3.65-5.03) L 05/19/17 03:00 Hgb 9.8 gm/dl (10.1-14.3) L 05/19/17 03:00 Hct 30.2 % (30.3-42.9) L 05/19/17 03:00 MCV 105 fl (79-97) H 05/19/17 03:00 MCH 34 pg (28-32) H 05/19/17 03:00 MCHC 33 % (30-34) 05/19/17 03:00 RDW 23.6 % (13.2-15.2) H 05/19/17 03:00 Plt Count 257 K/mm3 (140-440) 05/19/17 03:00 Lymph % (Auto) 7.1 % (13.4-35.0) L 05/19/17 03:00 [place] % (Auto) 6.2 % (0.0-7.3) 05/19/17 03:00 Eos % (Auto) 0.0 % (0.0-4.3) 05/19/17 03:00 Baso % (Auto) 0.2 % (0.0-1.8) 05/19/17 03:00 Lymph # 0.5 K/mm3 (1.2-5.4) L 05/19/17 03:00 [place] # 0.4 K/mm3 (0.0-0.8) 05/19/17 03:00 Eos # 0.0 K/mm3 (0.0-0.4) 05/19/17 03:00 Baso # 0.0 K/mm3 (0.0-0.1) 05/19/17 03:00 Add Manual Diff Complete 05/16/17 04:00 Total Counted 100 05/16/17 04:00 Seg Neutrophils % 86.5 % (40.0-70.0) H 05/19/17 03:00 Seg Neuts % (Manual) 65.0 % (40.0-70.0) 05/16/17 04:00 Band Neutrophils % 12.0 % 05/16/17 04:00 Lymphocytes % (Manual) 9.0 % (13.4-35.0) L 05/16/17 04:00 Reactive Lymphs % (Man) 0 % 05/16/17 04:00 Monocytes % (Manual) 14.0 % (0.0-7.3) H 05/16/17 04:00 Eosinophils % (Manual) 0 % (0.0-4.3) 05/16/17 04:00 Basophils % (Manual) 0 % (0.0-1.8) 05/16/17 04:00 Metamyelocytes % 0 % 05/16/17 04:00 Myelocytes % 0 % 05/16/17 04:00 Promyelocytes % 0 % 05/16/17 04:00 Blast Cells % 0 % 05/16/17 04:00 Nucleated RBC % Not Reportable 05/16/17 04:00 Seg Neutrophils # 5.9 K/mm3 (1.8-7.7) 05/19/17 03:00 Seg Neutrophils # Man 15.3 K/mm3 (1.8-7.7) H 05/16/17 04:00 Band Neutrophils # 2.8 K/mm3 05/16/17 04:00 Lymphocytes # (Manual) 2.1 K/mm3 (1.2-5.4) 05/16/17 04:00 Abs React Lymphs (Man) 0.0 K/mm3 05/16/17 04:00 Monocytes # (Manual) 3.3 K/mm3 (0.0-0.8) H 05/16/17 04:00 Eosinophils # (Manual) 0.0 K/mm3 (0.0-0.4) 05/16/17 04:00 Basophils # (Manual) 0.0 K/mm3 (0.0-0.1) 05/16/17 04:00 Metamyelocytes # 0.0 K/mm3 05/16/17 04:00 Myelocytes # 0.0 K/mm3 05/16/17 04:00 Promyelocytes # 0.0 K/mm3 05/16/17 04:00 Blast Cells # 0.0 K/mm3 05/16/17 04:00 WBC Morphology Not Reportable 05/16/17 04:00 Hypersegmented Neuts Not Reportable 05/16/17 04:00 Hyposegmented Neuts Not Reportable 05/16/17 04:00 Hypogranular Neuts Not Reportable 05/16/17 04:00 Smudge Cells Not Reportable 05/16/17 04:00 Toxic Granulation Not Reportable 05/16/17 04:00 Toxic Vacuolation Not Reportable 05/16/17 04:00 Dohle Bodies Not Reportable 05/16/17 04:00 Pelger-Huet Anomaly Not Reportable 05/16/17 04:00 Anthony Rods Not Reportable 05/16/17 04:00 Platelet Estimate Appears normal 05/16/17 04:00 Clumped Platelets Not Reportable 05/16/17 04:00 Plt Clumps, EDTA Not Reportable 05/16/17 04:00 Large Platelets Not Reportable 05/16/17 04:00 Giant Platelets Not Reportable 05/16/17 04:00 Platelet Satelliting Not Reportable 05/16/17 04:00 Plt Morphology Comment Not Reportable 05/16/17 04:00 RBC Morphology Not Reportable 05/16/17 04:00 Dimorphic RBCs Not Reportable 05/16/17 04:00 Polychromasia Not Reportable 05/16/17 04:00 Hypochromasia 1+ 05/16/17 04:00 Poikilocytosis Not Reportable 05/16/17 04:00 Anisocytosis 1+ 05/16/17 04:00 Microcytosis Not Reportable 05/16/17 04:00 Macrocytosis Not Reportable 05/16/17 04:00 Spherocytes Not Reportable 05/16/17 04:00 Pappenheimer Bodies Not Reportable 05/16/17 04:00 Sickle Cells Not Reportable 05/16/17 04:00 Target Cells Not Reportable 05/16/17 04:00 Tear Drop Cells Few 05/16/17 04:00 Ovalocytes Few 05/16/17 04:00 Stomatocytes Few 05/16/17 04:00 Helmet Cells Not Reportable 05/16/17 04:00 Milligan-Crawford Bodies Not Reportable 05/16/17 04:00 [place] Rings Not Reportable 05/16/17 04:00 Anthony Cells Not Reportable 05/16/17 04:00 Bite Cells Not Reportable 05/16/17 04:00 Crenated Cell Not Reportable 05/16/17 04:00 Elliptocytes Few 05/16/17 04:00 Acanthocytes (Spur) Not Reportable 05/16/17 04:00 Rouleaux Not Reportable 05/16/17 04:00 Hemoglobin C Crystals Not Reportable 05/16/17 04:00 Schistocytes Not Reportable 05/16/17 04:00 Malaria parasites Not Reportable 05/16/17 04:00 Jsoe Bodies Not Reportable 05/16/17 04:00 Hem Pathologist Commnt No 05/16/17 04:00 PT 14.4 Sec. (12.2-14.9) 05/17/17 04:45 INR 1.06 (0.87-1.13) 05/17/17 04:45 APTT 27.5 Sec. (24.2-36.6) 05/17/17 04:45 POC ABG pH 7.450 (7.35-7.45) 05/12/17 13:10 POC ABG pCO2 36.7 (35-45) 05/12/17 13:10 POC ABG pO2 66 (80-105) L 05/12/17 13:10 POC ABG HCO3 25.5 05/12/17 13:10 POC ABG Total CO2 27 05/12/17 13:10 POC ABG O2 Sat 94 05/12/17 13:10 POC ABG Base Excess 2 05/12/17 13:10 FiO2 25 % 05/12/17 13:10 Sodium 136 mmol/L (137-145) L 05/19/17 03:00 Potassium 4.9 mmol/L (3.6-5.0) 05/19/17 03:00 Chloride 90.1 mmol/L (98-107) L 05/19/17 03:00 Carbon Dioxide 24 mmol/L (22-30) 05/19/17 03:00 Anion Gap 27 mmol/L 05/19/17 03:00 BUN 49 mg/dL (7-17) H 05/19/17 03:00 Creatinine 4.8 mg/dL (0.7-1.2) H 05/19/17 03:00 Estimated GFR 9 ml/min 05/19/17 03:00 BUN/Creatinine Ratio 10 % 05/19/17 03:00 Glucose 126 mg/dL (65-100) H 05/19/17 03:00 POC Glucose 95 (70-105) 05/19/17 11:40 Hemoglobin A1c 5.5 % (4-6) 05/16/17 04:00 Lactic Acid 2.60 mmol/L (0.7-2.0) H* 05/12/17 16:05 Calcium 8.9 mg/dL (8.4-10.2) 05/19/17 03:00 Magnesium 2.20 mg/dL (1.7-2.3) 05/19/17 03:00 Total Bilirubin 0.50 mg/dL (0.1-1.2) 05/17/17 04:45 AST 22 units/L (5-40) 05/17/17 04:45 ALT 48 units/L (7-56) 05/17/17 04:45 Alkaline Phosphatase 226 units/L (35-129) H 05/17/17 04:45 Ammonia 34.0 umol/L (25-60) 05/17/17 04:45 Total Creatine Kinase 24 units/L (30-135) L 05/09/17 14:00 CK-MB (CK-2) 2.2 ng/mL (0.0-4.0) 05/09/17 14:00 CK-MB (CK-2) Rel Index 9.1 (0-4) H 05/09/17 14:00 Troponin T 0.654 ng/mL (0.00-0.029) H* 05/09/17 14:00 C-Reactive Protein 14.70 mg/dL (0.00-1.30) H 05/15/17 12:15 Total Protein 7.6 g/dL (6.3-8.2) 05/17/17 04:45 Albumin 3.5 g/dL (3.9-5) L 05/17/17 04:45 Albumin/Globulin Ratio 0.9 % 05/17/17 04:45 Triglycerides 125 mg/dL (2-149) 05/09/17 06:00 Cholesterol 73 mg/dL (50-199) 05/09/17 06:00 LDL Cholesterol Direct 21 mg/dL (50-130) L 05/09/17 06:00 HDL Cholesterol 27 mg/dL (40-59) L 05/09/17 06:00 Cholesterol/HDL Ratio 2.70 % 05/09/17 06:00 Urine Color Yellow (Yellow) 05/08/17 Unknown Urine Turbidity Clear (Clear) 05/08/17 Unknown Urine pH 7.0 (5.0-7.0) 05/08/17 Unknown Ur Specific [place] 1.014 (1.003-1.030) 05/08/17 Unknown Urine Protein 100 mg/dl mg/dL (Negative) 05/08/17 Unknown Urine Glucose (UA) 150 mg/dL (Negative) 05/08/17 Unknown Urine Ketones Neg mg/dL (Negative) 05/08/17 Unknown Urine Blood Sm (Negative) 05/08/17 Unknown Urine Nitrite Neg (Negative) 05/08/17 Unknown Urine Bilirubin Neg (Negative) 05/08/17 Unknown Urine Urobilinogen < 2.0 mg/dL (<2.0) 05/08/17 Unknown Ur Leukocyte Esterase Tr (Negative) 05/08/17 Unknown Urine WBC (Auto) 16.0 /HPF (0.0-6.0) H 05/08/17 Unknown Urine RBC (Auto) 3.0 /HPF (0.0-6.0) 05/08/17 Unknown U Epithel Cells (Auto) < 1.0 /HPF (0-13.0) 05/08/17 Unknown Urine Bacteria (Auto) 1+ /HPF (Negative) 05/08/17 Unknown Salicylates < 0.3 mg/dL (2.8-20.0) L 05/08/17 21:35 Acetaminophen < 15.0 ug/mL (10.0-30.0) 05/08/17 21:35 Hepatitis A IgM Ab Non-reactive (NonReactive) 05/09/17 17:00 Hep Bs Antigen Non-reactive (Negative) 05/09/17 17:00 Hep B Core IgM Ab Non-reactive (NonReactive) 05/09/17 17:00 Hepatitis C Antibody Reactive (NonReactive) A 05/09/17 17:00
[2017-05-19] MEDS: DESYREL PO SCH (22:27)
[2017-05-19] MEDS: FLAGYL 500 MG/100 ML 500 MG/100 ML BAG IV SCH ×2 (22:29→22:32)
[2017-05-20] MEDS: PROVENTIL IH SCH ×4 (01:41→20:07)
[2017-05-20] MEDS: PROAMATINE PO SCH ×3 (03:30→18:20)
[2017-05-20] MEDS: NEURONTIN PO SCH ×3 (06:26→23:11)
[2017-05-20] MEDS: FLAGYL 500 MG/100 ML 500 MG/100 ML BAG IV SCH ×3 (06:30→23:10)
[2017-05-20 06:46] LABS: Hematocrit 32.9 % (30.3-42.9); Hemoglobin 10.3 gm/dl (10.1-14.3); Mean Corpuscular HGB Conc 31 % (30-34); Mean Corpuscular Hemoglobin 33 pg (28-32); Mean Corpuscular Volume 106 fl (79-97); Platelet Count 269 K/mm3 (140-440); Red Blood Count 3.12 M/mm3 (3.65-5.03)
[2017-05-20 06:49] LABS: Red Cell Distribution Width 23.7 % (13.2-15.2)
[2017-05-20 07:13] LABS: Albumin 3.6 g/dL (3.9-5); Calcium 8.7 mg/dL (8.4-10.2)
[2017-05-20 07:37] LABS: Anisocytosis 1+; Band Neutrophils # (Manual) 0.1 K/mm3; Basophils % (Manual) 0 % (0.0-1.8); Eosinophils % (Manual) 0 % (0.0-4.3); Macrocytosis 1+; Ovalocytes 1+; Target Cells Rare; Tear Drop Cells 1+; Total Cells Counted 100
[2017-05-20 07:38] LABS: Stomatocytes Few
[2017-05-20] MEDS: RENVELA PO SCH ×4 (08:24→17:37)
[2017-05-20] MEDS: NOVOLOG SUB-Q SCH ×5 (08:24→23:14)
--- NOTE | 2017-05-20 08:52 | Progress Note ---
Assessment and Plan Assessment: Acute on chronic systolic heart failure- improving ICMP - echo 04/17/2017 showed EF 40% Elevated troponins - ECG with NAF; pt with no c/o chest pain; currently nonspecific in setting of acutely decompensated HF, sepsis, and ESRD Acute respiratory failure - s/p extubation AMS - head CT with NAF MRSA pneumonia/atelectasis Septic shock ESRD on HD - TTS HD schedule CAD, ID with PCI of mid LAD and mid circ at [facility] (01/20/2016), NSTEMI with subacute left circ and LAD stent thrombosis s/p stent of left circ and balloon angioplasty alone of LAD (02/22/2016) DM H/o HTN - with hypotension since admission HLP Anemia Hepatitis C Moderate to severe TR Pulmonary HTN - RVSP 57.9mmHg Plan: Currently weaned off levophed. Volume optimization per nephrology. No indication for repeat echo given recent echo 04/17/2017. No BB, ACEI/ARB, and/or anti-hypertensives at this time given hypotension. Consider re-introduction if able to maintain BPs off pressors. The patient has been seen in conjunction with Dr. YOGI Monreal who agrees with the assessment and plan of care. Subjective Date of service: 05/20/17 Principal diagnosis: MRSA pneumonia, shock,sepsis,ESRD Interval history: pt resting in bed, NAD, no current complaints. Currently off levophed gtt. Objective Last Vital Signs Temp 97.5 F L 05/20/17 07:54 Pulse 95 H 05/20/17 08:00 Resp 27 H 05/20/17 08:00 BP 92/60 05/20/17 08:00 Pulse Ox 86 05/20/17 08:00 - Physical Examination General: No Apparent Distress HEENT: Positive: PERRL, Normocephaly, Mucus Membranes Moist Neck: Positive: neck supple, trachea midline Cardiac: Positive: Reg Rate and Rhythm, S1/S2 Lungs: Positive: Decreased Breath Sounds Neuro: Positive: Grossly Intact Abdomen: Positive: Soft. Negative: Tender Skin: Positive: Clear. Negative: Rash, Wound Musculoskeletal: No Fluid Collection, No Pain, Normal Range of Motion Extremities: Absent: edema - Labs and Meds Cardiac Enzymes 05/20/17 Range/Units 05:00 AST 14 (5-40) units/L CBC 05/20/17 Range/Units 05:00 WBC 10.5 (4.5-11.0) K/mm3 RBC 3.12 L (3.65-5.03) M/mm3 Hgb 10.3 (10.1-14.3) gm/dl Hct 32.9 (30.3-42.9) % Plt Count 269 (140-440) K/mm3 Comprehensive Metabolic Panel 05/20/17 Range/Units 05:00 Sodium 141 (137-145) mmol/L Potassium 4.9 (3.6-5.0) mmol/L Chloride 95.5 L (98-107) mmol/L Carbon Dioxide 25 (22-30) mmol/L BUN 29 H (7-17) mg/dL Creatinine 2.9 H (0.7-1.2) mg/dL Glucose 167 H (65-100) mg/dL Calcium 8.7 (8.4-10.2) mg/dL AST 14 (5-40) units/L ALT 23 (7-56) units/L Alkaline Phosphatase 195 H (35-129) units/L Total Protein 7.8 (6.3-8.2) g/dL Albumin 3.6 L (3.9-5) g/dL - Imaging and Cardiology EKG: report reviewed, image reviewed Cardiac cath: report reviewed (ID and PCI of mid LAD and mid circ on 01/20/2016; subacute left circ and LAD stent thrombosis s/p stent of left circ and balloon angioplasty alone of LAD (02/22/2016)) - EKG Sinus rhythms and dysrhythmias: sinus rhythm AV and intraventricular conduction: right bundle branch block (incomplete)
[2017-05-20] MEDS: HABITROL TD SCH (09:17)
[2017-05-20] MEDS: ZYVOX PO SCH (09:18)
[2017-05-20] MEDS: BABY ASPIRIN PO SCH (09:18)
[2017-05-20] MEDS: SENSIPAR PO SCH ×2 (09:18→23:11)
[2017-05-20] MEDS: HEPARIN SUB-Q SCH ×2 (09:20→23:14)
--- NOTE | 2017-05-20 10:05 | Progress Note ---
Assessment and Plan (1) ESRD (end stage renal disease) Current Visit: Yes Status: Chronic Plan to address problem: no indication for HD today Fluid restriction of 1 liter per day Renally dose medications Monitor I/O's Obtain daily weights Assess dialysis needs daily (2) Diabetes mellitus Current Visit: Yes Status: Acute Plan to address problem: As per primary team (3) Acute hypoxemic respiratory failure Current Visit: No Status: Acute Plan to address problem: On venturi mask. (4) Hypotension Current Visit: Yes Status: Acute Plan to address problem: Hypotension-On Levophed drip and Midodrine 10 mg po every 8 hours (5) Pneumonia Current Visit: No Status: Acute Qualifiers: Laterality: bilateral Plan to address problem: On Zyvox as per ID Subjective Date of service: 05/20/17 Principal diagnosis: MRSA pneumonia, shock,sepsis,ESRD Interval history: tolerated HD yesterday, feels weak this AM Objective - Vital Signs Vital signs: Vital Signs - 12hr 05/19/17 05/19/17 05/19/17 22:15 22:30 22:45 Temperature Pulse Rate 94 H 92 H 94 H Pulse Rate [ Apical] Pulse Rate [ Posterior Bilateral Throughout] Respiratory 21 22 18 Rate Respiratory Rate [Posterior Bilateral Throughout] Blood Pressure 92/53 94/57 97/56 O2 Sat by Pulse 71 L Oximetry 05/19/17 05/19/17 05/19/17 23:00 23:15 23:30 Temperature Pulse Rate 93 H 94 H 93 H Pulse Rate [ Apical] Pulse Rate [ Posterior Bilateral Throughout] Respiratory 23 22 25 H Rate Respiratory Rate [Posterior Bilateral Throughout] Blood Pressure 97/53 94/59 98/56 O2 Sat by Pulse 100 99 94 Oximetry 05/19/17 05/20/17 05/20/17 23:45 00:00 00:10 Temperature 96.4 F L Pulse Rate 94 H 100 H 97 H Pulse Rate [ 88 Apical] Pulse Rate [ Posterior Bilateral Throughout] Respiratory 25 H 24 22 Rate Respiratory Rate [Posterior Bilateral Throughout] Blood Pressure 98/56 98/58 O2 Sat by Pulse 98 96 Oximetry 05/20/17 05/20/17 05/20/17 00:15 00:30 00:45 Temperature Pulse Rate 99 H 100 H 100 H Pulse Rate [ Apical] Pulse Rate [ Posterior Bilateral Throughout] Respiratory 23 24 23 Rate Respiratory Rate [Posterior Bilateral Throughout] Blood Pressure 98/55 93/57 91/54 O2 Sat by Pulse 100 100 Oximetry 05/20/17 05/20/17 05/20/17 01:00 01:15 01:30 Temperature Pulse Rate 99 H 92 H 94 H Pulse Rate [ Apical] Pulse Rate [ Posterior Bilateral Throughout] Respiratory 22 21 22 Rate Respiratory Rate [Posterior Bilateral Throughout] Blood Pressure 89/54 89/50 89/52 O2 Sat by Pulse 100 100 100 Oximetry 05/20/17 05/20/17 05/20/17 01:41 01:45 01:56 Temperature Pulse Rate 94 H Pulse Rate [ Apical] Pulse Rate [ 94 H 96 H Posterior Bilateral Throughout] Respiratory 21 Rate Respiratory 18 18 Rate [Posterior Bilateral Throughout] Blood Pressure 90/53 O2 Sat by Pulse 100 Oximetry 05/20/17 05/20/17 05/20/17 02:00 02:16 02:30 Temperature Pulse Rate 95 H 96 H 94 H Pulse Rate [ Apical] Pulse Rate [ Posterior Bilateral Throughout] Respiratory 19 28 H 29 H Rate Respiratory Rate [Posterior Bilateral Throughout] Blood Pressure 90/53 88/45 79/44 O2 Sat by Pulse 98 100 Oximetry 05/20/17 05/20/17 05/20/17 02:45 03:00 03:15 Temperature Pulse Rate 93 H 92 H 93 H Pulse Rate [ Apical] Pulse Rate [ Posterior Bilateral Throughout] Respiratory 26 H 27 H 27 H Rate Respiratory Rate [Posterior Bilateral Throughout] Blood Pressure 89/53 87/49 92/52 O2 Sat by Pulse 100 100 Oximetry 05/20/17 05/20/17 05/20/17 03:30 03:45 04:00 Temperature 97.5 F L Pulse Rate 94 H 91 H 92 H Pulse Rate [ 85 Apical] Pulse Rate [ Posterior Bilateral Throughout] Respiratory 28 H 25 H 23 Rate Respiratory Rate [Posterior Bilateral Throughout] Blood Pressure 87/49 81/46 89/52 O2 Sat by Pulse 99 99 100 Oximetry 05/20/17 05/20/17 05/20/17 04:15 04:30 04:45 Temperature Pulse Rate 91 H 90 93 H Pulse Rate [ Apical] Pulse Rate [ Posterior Bilateral Throughout] Respiratory 23 21 20 Rate Respiratory Rate [Posterior Bilateral Throughout] Blood Pressure 86/53 91/55 91/55 O2 Sat by Pulse 100 99 100 Oximetry 05/20/17 05/20/17 05/20/17 05:00 05:15 05:30 Temperature Pulse Rate 88 88 89 Pulse Rate [ Apical] Pulse Rate [ Posterior Bilateral Throughout] Respiratory 20 22 20 Rate Respiratory Rate [Posterior Bilateral Throughout] Blood Pressure 83/47 84/47 94/49 O2 Sat by Pulse 100 100 100 Oximetry 05/20/17 05/20/17 05/20/17 05:45 06:00 06:15 Temperature Pulse Rate 90 95 H 97 H Pulse Rate [ Apical] Pulse Rate [ Posterior Bilateral Throughout] Respiratory 19 19 24 Rate Respiratory Rate [Posterior Bilateral Throughout] Blood Pressure 89/54 91/58 96/55 O2 Sat by Pulse 100 99 100 Oximetry 05/20/17 05/20/17 05/20/17 06:30 06:45 07:00 Temperature Pulse Rate 96 H 98 H 97 H Pulse Rate [ Apical] Pulse Rate [ Posterior Bilateral Throughout] Respiratory 17 22 25 H Rate Respiratory Rate [Posterior Bilateral Throughout] Blood Pressure 91/53 89/50 84/48 O2 Sat by Pulse 99 91 89 Oximetry 05/20/17 05/20/17 05/20/17 07:15 07:30 07:31 Temperature 97.5 F L Pulse Rate 94 H 94 H Pulse Rate [ Apical] Pulse Rate [ Posterior Bilateral Throughout] Respiratory 21 21 Rate Respiratory Rate [Posterior Bilateral Throughout] Blood Pressure 93/54 86/47 O2 Sat by Pulse 100 100 Oximetry 05/20/17 05/20/17 05/20/17 07:45 07:54 08:00 Temperature 97.5 F L Pulse Rate 94 H 95 H Pulse Rate [ Apical] Pulse Rate [ Posterior Bilateral Throughout] Respiratory 23 27 H Rate Respiratory Rate [Posterior Bilateral Throughout] Blood Pressure 91/57 92/60 O2 Sat by Pulse 86 Oximetry 05/20/17 05/20/17 05/20/17 08:16 08:30 08:45 Temperature Pulse Rate 94 H 93 H 91 H Pulse Rate [ Apical] Pulse Rate [ Posterior Bilateral Throughout] Respiratory 22 27 H 25 H Rate Respiratory Rate [Posterior Bilateral Throughout] Blood Pressure 89/52 111/65 92/51 O2 Sat by Pulse 72 L Oximetry 05/20/17 05/20/17 05/20/17 09:00 09:15 09:30 Temperature Pulse Rate 89 91 H 90 Pulse Rate [ Apical] Pulse Rate [ Posterior Bilateral Throughout] Respiratory 21 21 24 Rate Respiratory Rate [Posterior Bilateral Throughout] Blood Pressure 84/46 86/51 83/50 O2 Sat by Pulse 66 L Oximetry 05/20/17 05/20/17 09:45 10:00 Temperature Pulse Rate 91 H 91 H Pulse Rate [ Apical] Pulse Rate [ Posterior Bilateral Throughout] Respiratory 24 31 H Rate Respiratory Rate [Posterior Bilateral Throughout] Blood Pressure 87/53 91/49 O2 Sat by Pulse Oximetry - General Appearance General appearance: well-developed, cachectic EENT: ATNC, PERRL, mucous membranes dry Neck: no JVD, no carotid bruit Respiratory: Present: Rales, Ronchi, Decreased Breath Sounds Cardiology: regular, S1S2 Gastrointestinal: normoactive bowel sounds, no tenderness, no distended, no guarding Integumentary: no rash, warm and dry Neurologic: no focal deficit, no asterixis Musculoskeletal: other (no edema in BLE) Psychiatric: cooperative - Lab 05/20/17 05:00 05/20/17 05:00 Most recent lab results Calcium 8.7 mg/dL (8.4-10.2) 05/20/17 05:00 Magnesium 2.20 mg/dL (1.7-2.3) 05/19/17 03:00
--- NOTE | 2017-05-20 11:06 | Progress Note ---
Assessment and Plan Assessment: 1) Sepsis with septic shock: off pressors, unclear etiology of persistent hypotension ? cortisol=35, leukocytosis resolved. Etiology most likely pneumonia. 2) Bilateral pneumonia: -tracheal asp + MRSA -CRP very high at 44 --> 14 -CT chest - ector alveolar densities, repeat CXR better 3) Resp failure - better 4) HCV / Ascitis 5) ESRD on HD 6) CAD 7) CHF with exacerbation 8) LALO - worsening on HD now 9) Recurrent falls 10) Diarrhea ? - better Plan: -stop zyvox s/p 10 days -continue flagyl 2 of 5 days -contact isolation -monitor BP Thank you Dr Gutierrez for your consultation, will follow up with you. Tamera Butler MD Infectious Diseases Specialist [facility] M [phone] Subjective Date of service: 05/20/17 Principal diagnosis: MRSA pneumonia, shock,sepsis,ESRD Interval history: Feels better, off levophed. No fever. No new diarrhea. Microbiology: Blood cultures: 05/09 neg 05/16 ngtd Urine cultures: Respiratory cultures: TA 05/09 MRSA Current Antimicrobials: zyvox 05/12 flagyl 05/19 Previous Antimicrobials: Ceftriaxone Objective - Exam Narrative Exam: General appearance: alert in NAD Eyes: anicteric sclerae, moist conjunctivae; no lid-lag; PERRLA HENT: Atraumatic Neck: Trachea midline; supple, no thyromegaly or lymphadenopathy Lungs: ector rhonchi CV: rrr Abdomen: Soft, non-tender Extremities: No peripheral edema or extremity lymphadenopathy Skin: +multiple ecchymoses left forehead Psych:alert Neuro: alert Moving all extermities Lines: No CVL / PICC - Constitutional Vitals: Vital Signs Temp Pulse Resp BP Pulse Ox 97.5 F L 91 H 31 H 91/49 66 L 05/20/17 07:54 05/20/17 10:00 05/20/17 10:00 05/20/17 10:00 05/20/17 09:00 Temperature -Last 24 Hours Temperature 97.5 F Temperature 97.5 F Temperature 97.5 F Temperature 96.4 F Temperature 96.1 F Temperature 96.1 F Temperature 97.3 F Temperature 97.4 F - Labs CBC & Chem 7: 05/20/17 05:00 05/20/17 05:00 Labs: Abnormal lab results 05/19/17 05/20/17 05/20/17 Range/Units 21:30 05:00 05:00 RBC 3.12 L (3.65-5.03) M/mm3 MCV 106 H (79-97) fl MCH 33 H (28-32) pg RDW 23.7 H (13.2-15.2) % Seg Neuts % (Manual) 93.0 H (40.0-70.0) % Lymphocytes % (Manual) 3.0 L (13.4-35.0) % Seg Neutrophils # Man 9.8 H (1.8-7.7) K/mm3 Lymphocytes # (Manual) 0.3 L (1.2-5.4) K/mm3 Chloride 95.5 L (98-107) mmol/L BUN 29 H (7-17) mg/dL Creatinine 2.9 H (0.7-1.2) mg/dL Glucose 167 H (65-100) mg/dL POC Glucose 145 H (70-105) Alkaline Phosphatase 195 H (35-129) units/L Albumin 3.6 L (3.9-5) g/dL
--- NOTE | 2017-05-20 11:18 | Progress Note ---
Assessment and Plan 56 y/o female with acute respiratory failure, most likely secondary to volume overload and altered mental status, exact etiology unknown, now with persistent hypotension of unknown etiology. 1. Continue Midodrine 10 TID. Will monitor BP for a few more hours. 2. Continue supplemental O2, wean for sats >88% 3. Bipap PRN 4. Will monitor temperature 5. If able to stay off Pressors, please transfer out of unit. CCT 31 minutes. Subjective Date of service: 05/20/17 Principal diagnosis: MRSA pneumonia, shock,sepsis,ESRD Interval history: No acute events. Levophed turned off at 0900. Stable BP thus far. Random cortisol was 35. Had HD yesterday. Objective Vital Signs - 12hr 05/19/17 05/19/17 05/19/17 23:15 23:30 23:45 Temperature Pulse Rate 94 H 93 H 94 H Pulse Rate [ Apical] Pulse Rate [ Posterior Bilateral Throughout] Respiratory 22 25 H 25 H Rate Respiratory Rate [Posterior Bilateral Throughout] Blood Pressure 94/59 98/56 98/56 O2 Sat by Pulse 99 94 Oximetry 05/20/17 05/20/17 05/20/17 00:00 00:10 00:15 Temperature 96.4 F L Pulse Rate 100 H 97 H 99 H Pulse Rate [ 88 Apical] Pulse Rate [ Posterior Bilateral Throughout] Respiratory 24 22 23 Rate Respiratory Rate [Posterior Bilateral Throughout] Blood Pressure 98/58 98/55 O2 Sat by Pulse 98 96 Oximetry 05/20/17 05/20/17 05/20/17 00:30 00:45 01:00 Temperature Pulse Rate 100 H 100 H 99 H Pulse Rate [ Apical] Pulse Rate [ Posterior Bilateral Throughout] Respiratory 24 23 22 Rate Respiratory Rate [Posterior Bilateral Throughout] Blood Pressure 93/57 91/54 89/54 O2 Sat by Pulse 100 100 100 Oximetry 05/20/17 05/20/17 05/20/17 01:15 01:30 01:41 Temperature Pulse Rate 92 H 94 H Pulse Rate [ Apical] Pulse Rate [ 94 H Posterior Bilateral Throughout] Respiratory 21 22 Rate Respiratory 18 Rate [Posterior Bilateral Throughout] Blood Pressure 89/50 89/52 O2 Sat by Pulse 100 100 Oximetry 05/20/17 05/20/17 05/20/17 01:45 01:56 02:00 Temperature Pulse Rate 94 H 95 H Pulse Rate [ Apical] Pulse Rate [ 96 H Posterior Bilateral Throughout] Respiratory 21 19 Rate Respiratory 18 Rate [Posterior Bilateral Throughout] Blood Pressure 90/53 90/53 O2 Sat by Pulse 100 98 Oximetry 05/20/17 05/20/17 05/20/17 02:16 02:30 02:45 Temperature Pulse Rate 96 H 94 H 93 H Pulse Rate [ Apical] Pulse Rate [ Posterior Bilateral Throughout] Respiratory 28 H 29 H 26 H Rate Respiratory Rate [Posterior Bilateral Throughout] Blood Pressure 88/45 79/44 89/53 O2 Sat by Pulse 100 Oximetry 05/20/17 05/20/17 05/20/17 03:00 03:15 03:30 Temperature Pulse Rate 92 H 93 H 94 H Pulse Rate [ Apical] Pulse Rate [ Posterior Bilateral Throughout] Respiratory 27 H 27 H 28 H Rate Respiratory Rate [Posterior Bilateral Throughout] Blood Pressure 87/49 92/52 87/49 O2 Sat by Pulse 100 100 99 Oximetry 05/20/17 05/20/17 05/20/17 03:45 04:00 04:15 Temperature 97.5 F L Pulse Rate 91 H 92 H 91 H Pulse Rate [ 85 Apical] Pulse Rate [ Posterior Bilateral Throughout] Respiratory 25 H 23 23 Rate Respiratory Rate [Posterior Bilateral Throughout] Blood Pressure 81/46 89/52 86/53 O2 Sat by Pulse 99 100 100 Oximetry 05/20/17 05/20/17 05/20/17 04:30 04:45 05:00 Temperature Pulse Rate 90 93 H 88 Pulse Rate [ Apical] Pulse Rate [ Posterior Bilateral Throughout] Respiratory 21 20 20 Rate Respiratory Rate [Posterior Bilateral Throughout] Blood Pressure 91/55 91/55 83/47 O2 Sat by Pulse 99 100 100 Oximetry 05/20/17 05/20/17 05/20/17 05:15 05:30 05:45 Temperature Pulse Rate 88 89 90 Pulse Rate [ Apical] Pulse Rate [ Posterior Bilateral Throughout] Respiratory 22 20 19 Rate Respiratory Rate [Posterior Bilateral Throughout] Blood Pressure 84/47 94/49 89/54 O2 Sat by Pulse 100 100 100 Oximetry 05/20/17 05/20/17 05/20/17 06:00 06:15 06:30 Temperature Pulse Rate 95 H 97 H 96 H Pulse Rate [ Apical] Pulse Rate [ Posterior Bilateral Throughout] Respiratory 19 24 17 Rate Respiratory Rate [Posterior Bilateral Throughout] Blood Pressure 91/58 96/55 91/53 O2 Sat by Pulse 99 100 99 Oximetry 05/20/17 05/20/17 05/20/17 06:45 07:00 07:15 Temperature Pulse Rate 98 H 97 H 94 H Pulse Rate [ Apical] Pulse Rate [ Posterior Bilateral Throughout] Respiratory 22 25 H 21 Rate Respiratory Rate [Posterior Bilateral Throughout] Blood Pressure 89/50 84/48 93/54 O2 Sat by Pulse 91 89 100 Oximetry 05/20/17 05/20/17 05/20/17 07:30 07:31 07:45 Temperature 97.5 F L Pulse Rate 94 H 94 H Pulse Rate [ Apical] Pulse Rate [ Posterior Bilateral Throughout] Respiratory 21 23 Rate Respiratory Rate [Posterior Bilateral Throughout] Blood Pressure 86/47 91/57 O2 Sat by Pulse 100 Oximetry 05/20/17 05/20/17 05/20/17 07:54 08:00 08:16 Temperature 97.5 F L Pulse Rate 95 H 94 H Pulse Rate [ Apical] Pulse Rate [ Posterior Bilateral Throughout] Respiratory 27 H 22 Rate Respiratory Rate [Posterior Bilateral Throughout] Blood Pressure 92/60 89/52 O2 Sat by Pulse 86 Oximetry 05/20/17 05/20/17 05/20/17 08:30 08:45 09:00 Temperature Pulse Rate 93 H 91 H 89 Pulse Rate [ Apical] Pulse Rate [ Posterior Bilateral Throughout] Respiratory 27 H 25 H 21 Rate Respiratory Rate [Posterior Bilateral Throughout] Blood Pressure 111/65 92/51 84/46 O2 Sat by Pulse 72 L 66 L Oximetry 05/20/17 05/20/17 05/20/17 09:15 09:30 09:45 Temperature Pulse Rate 91 H 90 91 H Pulse Rate [ Apical] Pulse Rate [ Posterior Bilateral Throughout] Respiratory 21 24 24 Rate Respiratory Rate [Posterior Bilateral Throughout] Blood Pressure 86/51 83/50 87/53 O2 Sat by Pulse Oximetry 05/20/17 10:00 Temperature Pulse Rate 91 H Pulse Rate [ Apical] Pulse Rate [ Posterior Bilateral Throughout] Respiratory 31 H Rate Respiratory Rate [Posterior Bilateral Throughout] Blood Pressure 91/49 O2 Sat by Pulse Oximetry Constitutional: no acute distress, alert ENT: oropharynx moist Neck: supple Effort: normal Ascultation: Bilateral: diminished breath sounds, rales Percussion: Bilateral: not dull Cardiovascular: regular rate and rhythm (no mrg) Gastrointestinal: normoactive bowel sounds, soft, non-tender Integumentary: other (Patsy left-sided face) Extremities: no cyanosis, no edema Neurologic: normal mental status, non-focal exam, pupils equal and round, CN II- XII normal, motor strength normal and Psychiatric: mood appropriate, affect normal CBC and BMP: 05/20/17 05:00 05/20/17 05:00 ABG, PT/INR, D-dimer: ABG POC ABG pH 7.450 (7.35-7.45) 05/12/17 13:10 POC ABG pCO2 36.7 (35-45) 05/12/17 13:10 POC ABG pO2 66 (80-105) L 05/12/17 13:10 POC ABG HCO3 25.5 05/12/17 13:10 POC ABG Total CO2 27 05/12/17 13:10 POC ABG O2 Sat 94 05/12/17 13:10 PT/INR, D-dimer PT 14.4 Sec. (12.2-14.9) 05/17/17 04:45 INR 1.06 (0.87-1.13) 05/17/17 04:45 Abnormal lab findings: Abnormal Labs 05/08/17 05/08/17 05/08/17 21:25 21:25 21:25 WBC RBC 2.55 L Hgb 8.9 L Hct 28.1 L MCV 111 H MCH 35 H RDW 25.4 H Lymph % (Auto) [place] % (Auto) Lymph # [place] # Baso # Seg Neutrophils % Seg Neuts % (Manual) 92.0 H Lymphocytes % (Manual) 6.0 L Monocytes % (Manual) Nucleated RBC % Seg Neutrophils # Seg Neutrophils # Man 9.3 H Lymphocytes # (Manual) 0.6 L Monocytes # (Manual) PT 15.2 H INR 1.14 H POC ABG pH POC ABG pCO2 POC ABG pO2 Sodium Potassium Chloride Carbon Dioxide BUN Creatinine Glucose POC Glucose Lactic Acid 2.50 H* Calcium AST ALT Alkaline Phosphatase Total Creatine Kinase CK-MB (CK-2) Rel Index Troponin T C-Reactive Protein Total Protein Albumin LDL Cholesterol Direct HDL Cholesterol Urine WBC (Auto) Salicylates Hepatitis C Antibody 05/08/17 05/08/17 05/08/17 21:35 22:04 22:42 WBC RBC Hgb Hct MCV MCH RDW Lymph % (Auto) [place] % (Auto) Lymph # [place] # Baso # Seg Neutrophils % Seg Neuts % (Manual) Lymphocytes % (Manual) Monocytes % (Manual) Nucleated RBC % Seg Neutrophils # Seg Neutrophils # Man Lymphocytes # (Manual) Monocytes # (Manual) PT INR POC ABG pH 7.271 L POC ABG pCO2 56.5 H POC ABG pO2 30 L Sodium Potassium Chloride 107.8 H Carbon Dioxide BUN 22 H Creatinine 2.6 H Glucose 202 H POC Glucose Lactic Acid Calcium 7.3 L AST ALT Alkaline Phosphatase 258 H Total Creatine Kinase CK-MB (CK-2) Rel Index Troponin T C-Reactive Protein Total Protein 5.2 L Albumin 2.9 L LDL Cholesterol Direct HDL Cholesterol Urine WBC (Auto) Salicylates < 0.3 L Hepatitis C Antibody 05/08/17 05/09/17 05/09/17 Unknown 00:24 06:00 WBC RBC Hgb Hct MCV MCH RDW Lymph % (Auto) [place] % (Auto) Lymph # [place] # Baso # Seg Neutrophils % Seg Neuts % (Manual) Lymphocytes % (Manual) Monocytes % (Manual) Nucleated RBC % Seg Neutrophils # Seg Neutrophils # Man Lymphocytes # (Manual) Monocytes # (Manual) PT INR POC ABG pH 7.283 L POC ABG pCO2 49.9 H POC ABG pO2 249 H Sodium Potassium Chloride Carbon Dioxide BUN Creatinine Glucose POC Glucose Lactic Acid Calcium AST ALT Alkaline Phosphatase Total Creatine Kinase 19 L CK-MB (CK-2) Rel Index 11.0 H Troponin T 0.612 H* C-Reactive Protein Total Protein Albumin LDL Cholesterol Direct 21 L HDL Cholesterol 27 L Urine WBC (Auto) 16.0 H Salicylates Hepatitis C Antibody 05/09/17 05/09/17 05/09/17 06:00 06:00 08:52 WBC 11.7 H RBC 2.67 L Hgb 9.3 L Hct 30.0 L MCV 112 H MCH 35 H RDW 24.4 H Lymph % (Auto) [place] % (Auto) Lymph # [place] # Baso # Seg Neutrophils % Seg Neuts % (Manual) Lymphocytes % (Manual) Monocytes % (Manual) Nucleated RBC % Seg Neutrophils # Seg Neutrophils # Man Lymphocytes # (Manual) Monocytes # (Manual) PT INR POC ABG pH 7.323 L POC ABG pCO2 POC ABG pO2 143 H Sodium Potassium Chloride Carbon Dioxide BUN 24 H Creatinine 2.9 H Glucose 172 H POC Glucose Lactic Acid Calcium 7.7 L AST ALT Alkaline Phosphatase Total Creatine Kinase CK-MB (CK-2) Rel Index Troponin T C-Reactive Protein Total Protein Albumin LDL Cholesterol Direct HDL Cholesterol Urine WBC (Auto) Salicylates Hepatitis C Antibody 05/09/17 05/09/17 05/11/17 14:00 17:00 06:09 WBC 11.4 H RBC 2.66 L Hgb 9.1 L Hct 29.3 L MCV 110 H MCH 34 H RDW 23.1 H Lymph % (Auto) 4.2 L [place] % (Auto) 12.7 H Lymph # 0.5 L [place] # 1.4 H Baso # Seg Neutrophils % 82.5 H Seg Neuts % (Manual) Lymphocytes % (Manual) Monocytes % (Manual) Nucleated RBC % Seg Neutrophils # 9.4 H Seg Neutrophils # Man Lymphocytes # (Manual) Monocytes # (Manual) PT INR POC ABG pH POC ABG pCO2 POC ABG pO2 Sodium Potassium Chloride Carbon Dioxide BUN Creatinine Glucose POC Glucose Lactic Acid Calcium AST ALT Alkaline Phosphatase Total Creatine Kinase 24 L CK-MB (CK-2) Rel Index 9.1 H Troponin T 0.654 H* C-Reactive Protein Total Protein Albumin LDL Cholesterol Direct HDL Cholesterol Urine WBC (Auto) Salicylates Hepatitis C Antibody Reactive A 05/11/17 05/11/17 05/11/17 06:09 08:20 11:34 WBC RBC Hgb Hct MCV MCH RDW Lymph % (Auto) [place] % (Auto) Lymph # [place] # Baso # Seg Neutrophils % Seg Neuts % (Manual) Lymphocytes % (Manual) Monocytes % (Manual) Nucleated RBC % Seg Neutrophils # Seg Neutrophils # Man Lymphocytes # (Manual) Monocytes # (Manual) PT INR POC ABG pH POC ABG pCO2 POC ABG pO2 Sodium Potassium Chloride 95.6 L Carbon Dioxide 20 L BUN 24 H Creatinine 3.4 H Glucose 134 H POC Glucose 154 H 149 H Lactic Acid Calcium AST ALT Alkaline Phosphatase Total Creatine Kinase CK-MB (CK-2) Rel Index Troponin T C-Reactive Protein Total Protein Albumin LDL Cholesterol Direct HDL Cholesterol Urine WBC (Auto) Salicylates Hepatitis C Antibody 05/11/17 05/11/17 05/11/17 15:30 16:27 21:58 WBC RBC Hgb Hct MCV MCH RDW Lymph % (Auto) [place] % (Auto) Lymph # [place] # Baso # Seg Neutrophils % Seg Neuts % (Manual) Lymphocytes % (Manual) Monocytes % (Manual) Nucleated RBC % Seg Neutrophils # Seg Neutrophils # Man Lymphocytes # (Manual) Monocytes # (Manual) PT INR POC ABG pH POC ABG pCO2 POC ABG pO2 Sodium Potassium Chloride Carbon Dioxide BUN Creatinine Glucose POC Glucose 163 H 199 H Lactic Acid Calcium AST ALT Alkaline Phosphatase Total Creatine Kinase CK-MB (CK-2) Rel Index Troponin T C-Reactive Protein 44.70 H Total Protein Albumin LDL Cholesterol Direct HDL Cholesterol Urine WBC (Auto) Salicylates Hepatitis C Antibody 05/12/17 05/12/17 05/12/17 08:42 13:10 14:10 WBC RBC Hgb Hct MCV MCH RDW Lymph % (Auto) [place] % (Auto) Lymph # [place] # Baso # Seg Neutrophils % Seg Neuts % (Manual) Lymphocytes % (Manual) Monocytes % (Manual) Nucleated RBC % Seg Neutrophils # Seg Neutrophils # Man Lymphocytes # (Manual) Monocytes # (Manual) PT INR POC ABG pH POC ABG pCO2 POC ABG pO2 66 L Sodium Potassium Chloride Carbon Dioxide BUN Creatinine Glucose POC Glucose 190 H 162 H Lactic Acid Calcium AST ALT Alkaline Phosphatase Total Creatine Kinase CK-MB (CK-2) Rel Index Troponin T C-Reactive Protein Total Protein Albumin LDL Cholesterol Direct HDL Cholesterol Urine WBC (Auto) Salicylates Hepatitis C Antibody 05/12/17 05/12/17 05/12/17 15:46 16:05 21:42 WBC RBC Hgb Hct MCV MCH RDW Lymph % (Auto) [place] % (Auto) Lymph # [place] # Baso # Seg Neutrophils % Seg Neuts % (Manual) Lymphocytes % (Manual) Monocytes % (Manual) Nucleated RBC % Seg Neutrophils # Seg Neutrophils # Man Lymphocytes # (Manual) Monocytes # (Manual) PT INR POC ABG pH POC ABG pCO2 POC ABG pO2 Sodium Potassium Chloride Carbon Dioxide BUN Creatinine Glucose POC Glucose 153 H 153 H Lactic Acid 2.60 H* Calcium AST ALT Alkaline Phosphatase Total Creatine Kinase CK-MB (CK-2) Rel Index Troponin T C-Reactive Protein Total Protein Albumin LDL Cholesterol Direct HDL Cholesterol Urine WBC (Auto) Salicylates Hepatitis C Antibody 05/13/17 05/13/17 05/13/17 05:12 05:30 05:30 WBC 22.0 H RBC 3.02 L Hgb 9.9 L Hct MCV 105 H MCH 33 H RDW 22.9 H Lymph % (Auto) [place] % (Auto) Lymph # [place] # Baso # Seg Neutrophils % Seg Neuts % (Manual) 89.0 H Lymphocytes % (Manual) 6.0 L Monocytes % (Manual) Nucleated RBC % 1.0 H Seg Neutrophils # Seg Neutrophils # Man 19.6 H Lymphocytes # (Manual) Monocytes # (Manual) 0.9 H PT INR POC ABG pH POC ABG pCO2 POC ABG pO2 Sodium Potassium Chloride 90.8 L Carbon Dioxide 21 L BUN 28 H Creatinine 3.1 H Glucose 172 H POC Glucose 182 H Lactic Acid Calcium AST ALT Alkaline Phosphatase Total Creatine Kinase CK-MB (CK-2) Rel Index Troponin T C-Reactive Protein Total Protein Albumin LDL Cholesterol Direct HDL Cholesterol Urine WBC (Auto) Salicylates Hepatitis C Antibody 05/13/17 05/13/17 05/13/17 11:52 18:01 23:31 WBC RBC Hgb Hct MCV MCH RDW Lymph % (Auto) [place] % (Auto) Lymph # [place] # Baso # Seg Neutrophils % Seg Neuts % (Manual) Lymphocytes % (Manual) Monocytes % (Manual) Nucleated RBC % Seg Neutrophils # Seg Neutrophils # Man Lymphocytes # (Manual) Monocytes # (Manual) PT INR POC ABG pH POC ABG pCO2 POC ABG pO2 Sodium Potassium Chloride Carbon Dioxide BUN Creatinine Glucose POC Glucose 185 H 216 H 281 H Lactic Acid Calcium AST ALT Alkaline Phosphatase Total Creatine Kinase CK-MB (CK-2) Rel Index Troponin T C-Reactive Protein Total Protein Albumin LDL Cholesterol Direct HDL Cholesterol Urine WBC (Auto) Salicylates Hepatitis C Antibody 05/14/17 05/14/17 05/14/17 05:43 06:10 06:10 WBC 19.6 H RBC 3.61 L Hgb Hct MCV 104 H MCH 34 H RDW 23.4 H Lymph % (Auto) 8.6 L [place] % (Auto) Lymph # [place] # 1.3 H Baso # 0.2 H Seg Neutrophils % 82.5 H Seg Neuts % (Manual) Lymphocytes % (Manual) Monocytes % (Manual) Nucleated RBC % Seg Neutrophils # 16.2 H Seg Neutrophils # Man Lymphocytes # (Manual) Monocytes # (Manual) PT INR POC ABG pH POC ABG pCO2 POC ABG pO2 Sodium Potassium 3.4 L Chloride 89.1 L Carbon Dioxide BUN 32 H Creatinine 3.0 H Glucose 224 H POC Glucose 215 H Lactic Acid Calcium AST 85 H ALT 162 H Alkaline Phosphatase 347 H Total Creatine Kinase CK-MB (CK-2) Rel Index Troponin T C-Reactive Protein Total Protein 8.5 H Albumin LDL Cholesterol Direct HDL Cholesterol Urine WBC (Auto) Salicylates Hepatitis C Antibody 05/14/17 05/14/17 05/14/17 08:32 11:26 16:42 WBC RBC Hgb Hct MCV MCH RDW Lymph % (Auto) [place] % (Auto) Lymph # [place] # Baso # Seg Neutrophils % Seg Neuts % (Manual) Lymphocytes % (Manual) Monocytes % (Manual) Nucleated RBC % Seg Neutrophils # Seg Neutrophils # Man Lymphocytes # (Manual) Monocytes # (Manual) PT INR POC ABG pH POC ABG pCO2 POC ABG pO2 Sodium Potassium Chloride Carbon Dioxide BUN Creatinine Glucose POC Glucose 204 H 182 H 310 H Lactic Acid Calcium AST ALT Alkaline Phosphatase Total Creatine Kinase CK-MB (CK-2) Rel Index Troponin T C-Reactive Protein Total Protein Albumin LDL Cholesterol Direct HDL Cholesterol Urine WBC (Auto) Salicylates Hepatitis C Antibody 05/14/17 05/15/17 05/15/17 23:00 03:45 03:45 WBC 18.3 H RBC 3.42 L Hgb Hct MCV 105 H MCH 34 H RDW 23.0 H Lymph % (Auto) 10.4 L [place] % (Auto) 7.7 H Lymph # [place] # 1.4 H Baso # Seg Neutrophils % 79.5 H Seg Neuts % (Manual) Lymphocytes % (Manual) Monocytes % (Manual) Nucleated RBC % Seg Neutrophils # 14.6 H Seg Neutrophils # Man Lymphocytes # (Manual) Monocytes # (Manual) PT INR POC ABG pH POC ABG pCO2 POC ABG pO2 Sodium 132 L Potassium Chloride 88.4 L Carbon Dioxide BUN 29 H Creatinine 2.8 H Glucose 310 H POC Glucose 264 H Lactic Acid Calcium AST 54 H ALT 111 H Alkaline Phosphatase 318 H Total Creatine Kinase CK-MB (CK-2) Rel Index Troponin T C-Reactive Protein Total Protein Albumin 3.7 L LDL Cholesterol Direct HDL Cholesterol Urine WBC (Auto) Salicylates Hepatitis C Antibody 05/15/17 05/15/17 05/15/17 07:36 12:14 12:15 WBC RBC Hgb Hct MCV MCH RDW Lymph % (Auto) [place] % (Auto) Lymph # [place] # Baso # Seg Neutrophils % Seg Neuts % (Manual) Lymphocytes % (Manual) Monocytes % (Manual) Nucleated RBC % Seg Neutrophils # Seg Neutrophils # Man Lymphocytes # (Manual) Monocytes # (Manual) PT INR POC ABG pH POC ABG pCO2 POC ABG pO2 Sodium Potassium Chloride Carbon Dioxide BUN Creatinine Glucose POC Glucose 253 H > 500 H Lactic Acid Calcium AST ALT Alkaline Phosphatase Total Creatine Kinase CK-MB (CK-2) Rel Index Troponin T C-Reactive Protein 14.70 H Total Protein Albumin LDL Cholesterol Direct HDL Cholesterol Urine WBC (Auto) Salicylates Hepatitis C Antibody 05/15/17 05/15/17 05/15/17 12:15 15:43 22:26 WBC RBC Hgb Hct MCV MCH RDW Lymph % (Auto) [place] % (Auto) Lymph # [place] # Baso # Seg Neutrophils % Seg Neuts % (Manual) Lymphocytes % (Manual) Monocytes % (Manual) Nucleated RBC % Seg Neutrophils # Seg Neutrophils # Man Lymphocytes # (Manual) Monocytes # (Manual) PT INR POC ABG pH POC ABG pCO2 POC ABG pO2 Sodium Potassium Chloride Carbon Dioxide BUN Creatinine Glucose 336 H POC Glucose 288 H 243 H Lactic Acid Calcium AST ALT Alkaline Phosphatase Total Creatine Kinase CK-MB (CK-2) Rel Index Troponin T C-Reactive Protein Total Protein Albumin LDL Cholesterol Direct HDL Cholesterol Urine WBC (Auto) Salicylates Hepatitis C Antibody 05/16/17 05/16/17 05/16/17 04:00 04:00 07:26 WBC 23.5 H RBC 3.25 L Hgb Hct MCV 106 H MCH 33 H RDW 23.2 H Lymph % (Auto) [place] % (Auto) Lymph # [place] # Baso # Seg Neutrophils % Seg Neuts % (Manual) Lymphocytes % (Manual) 9.0 L Monocytes % (Manual) 14.0 H Nucleated RBC % Seg Neutrophils # Seg Neutrophils # Man 15.3 H Lymphocytes # (Manual) Monocytes # (Manual) 3.3 H PT INR POC ABG pH POC ABG pCO2 POC ABG pO2 Sodium Potassium Chloride 91.5 L Carbon Dioxide BUN 48 H Creatinine 4.5 H D Glucose POC Glucose 107 H Lactic Acid Calcium AST ALT Alkaline Phosphatase Total Creatine Kinase CK-MB (CK-2) Rel Index Troponin T C-Reactive Protein Total Protein Albumin LDL Cholesterol Direct HDL Cholesterol Urine WBC (Auto) Salicylates Hepatitis C Antibody 05/16/17 05/16/17 05/16/17 11:57 17:14 21:30 WBC RBC Hgb Hct MCV MCH RDW Lymph % (Auto) [place] % (Auto) Lymph # [place] # Baso # Seg Neutrophils % Seg Neuts % (Manual) Lymphocytes % (Manual) Monocytes % (Manual) Nucleated RBC % Seg Neutrophils # Seg Neutrophils # Man Lymphocytes # (Manual) Monocytes # (Manual) PT INR POC ABG pH POC ABG pCO2 POC ABG pO2 Sodium Potassium Chloride Carbon Dioxide BUN Creatinine Glucose POC Glucose 190 H 200 H 152 H Lactic Acid Calcium AST ALT Alkaline Phosphatase Total Creatine Kinase CK-MB (CK-2) Rel Index Troponin T C-Reactive Protein Total Protein Albumin LDL Cholesterol Direct HDL Cholesterol Urine WBC (Auto) Salicylates Hepatitis C Antibody 05/17/17 05/17/17 05/17/17 04:45 04:45 08:20 WBC 16.7 H RBC 3.08 L Hgb Hct MCV 106 H MCH 33 H RDW 23.3 H Lymph % (Auto) 3.8 L [place] % (Auto) Lymph # 0.6 L [place] # 1.1 H Baso # 0.2 H Seg Neutrophils % 87.5 H Seg Neuts % (Manual) Lymphocytes % (Manual) Monocytes % (Manual) Nucleated RBC % Seg Neutrophils # 14.6 H Seg Neutrophils # Man Lymphocytes # (Manual) Monocytes # (Manual) PT INR POC ABG pH POC ABG pCO2 POC ABG pO2 Sodium 134 L Potassium Chloride 89.3 L Carbon Dioxide 21 L BUN 60 H Creatinine 6.1 H Glucose POC Glucose 107 H Lactic Acid Calcium AST ALT Alkaline Phosphatase 226 H Total Creatine Kinase CK-MB (CK-2) Rel Index Troponin T C-Reactive Protein Total Protein Albumin 3.5 L LDL Cholesterol Direct HDL Cholesterol Urine WBC (Auto) Salicylates Hepatitis C Antibody 05/17/17 05/17/17 05/17/17 11:24 16:24 21:34 WBC RBC Hgb Hct MCV MCH RDW Lymph % (Auto) [place] % (Auto) Lymph # [place] # Baso # Seg Neutrophils % Seg Neuts % (Manual) Lymphocytes % (Manual) Monocytes % (Manual) Nucleated RBC % Seg Neutrophils # Seg Neutrophils # Man Lymphocytes # (Manual) Monocytes # (Manual) PT INR POC ABG pH POC ABG pCO2 POC ABG pO2 Sodium Potassium Chloride Carbon Dioxide BUN Creatinine Glucose POC Glucose 172 H 116 H 182 H Lactic Acid Calcium AST ALT Alkaline Phosphatase Total Creatine Kinase CK-MB (CK-2) Rel Index Troponin T C-Reactive Protein Total Protein Albumin LDL Cholesterol Direct HDL Cholesterol Urine WBC (Auto) Salicylates Hepatitis C Antibody 05/18/17 05/18/17 05/18/17 05:06 08:01 11:32 WBC RBC Hgb Hct MCV MCH RDW Lymph % (Auto) [place] % (Auto) Lymph # [place] # Baso # Seg Neutrophils % Seg Neuts % (Manual) Lymphocytes % (Manual) Monocytes % (Manual) Nucleated RBC % Seg Neutrophils # Seg Neutrophils # Man Lymphocytes # (Manual) Monocytes # (Manual) PT INR POC ABG pH POC ABG pCO2 POC ABG pO2 Sodium Potassium Chloride Carbon Dioxide BUN Creatinine Glucose POC Glucose 153 H 145 H 247 H Lactic Acid Calcium AST ALT Alkaline Phosphatase Total Creatine Kinase CK-MB (CK-2) Rel Index Troponin T C-Reactive Protein Total Protein Albumin LDL Cholesterol Direct HDL Cholesterol Urine WBC (Auto) Salicylates Hepatitis C Antibody 05/18/17 05/18/17 05/19/17 16:09 22:17 03:00 WBC RBC 2.88 L Hgb 9.8 L Hct 30.2 L MCV 105 H MCH 34 H RDW 23.6 H Lymph % (Auto) 7.1 L [place] % (Auto) Lymph # 0.5 L [place] # Baso # Seg Neutrophils % 86.5 H Seg Neuts % (Manual) Lymphocytes % (Manual) Monocytes % (Manual) Nucleated RBC % Seg Neutrophils # Seg Neutrophils # Man Lymphocytes # (Manual) Monocytes # (Manual) PT INR POC ABG pH POC ABG pCO2 POC ABG pO2 Sodium Potassium Chloride Carbon Dioxide BUN Creatinine Glucose POC Glucose 237 H 162 H Lactic Acid Calcium AST ALT Alkaline Phosphatase Total Creatine Kinase CK-MB (CK-2) Rel Index Troponin T C-Reactive Protein Total Protein Albumin LDL Cholesterol Direct HDL Cholesterol Urine WBC (Auto) Salicylates Hepatitis C Antibody 05/19/17 05/19/17 05/19/17 03:00 07:19 21:30 WBC RBC Hgb Hct MCV MCH RDW Lymph % (Auto) [place] % (Auto) Lymph # [place] # Baso # Seg Neutrophils % Seg Neuts % (Manual) Lymphocytes % (Manual) Monocytes % (Manual) Nucleated RBC % Seg Neutrophils # Seg Neutrophils # Man Lymphocytes # (Manual) Monocytes # (Manual) PT INR POC ABG pH POC ABG pCO2 POC ABG pO2 Sodium 136 L Potassium Chloride 90.1 L Carbon Dioxide BUN 49 H Creatinine 4.8 H Glucose 126 H POC Glucose 128 H 145 H Lactic Acid Calcium AST ALT Alkaline Phosphatase Total Creatine Kinase CK-MB (CK-2) Rel Index Troponin T C-Reactive Protein Total Protein Albumin LDL Cholesterol Direct HDL Cholesterol Urine WBC (Auto) Salicylates Hepatitis C Antibody 05/20/17 05/20/17 05:00 05:00 WBC RBC 3.12 L Hgb Hct MCV 106 H MCH 33 H RDW 23.7 H Lymph % (Auto) [place] % (Auto) Lymph # [place] # Baso # Seg Neutrophils % Seg Neuts % (Manual) 93.0 H Lymphocytes % (Manual) 3.0 L Monocytes % (Manual) Nucleated RBC % Seg Neutrophils # Seg Neutrophils # Man 9.8 H Lymphocytes # (Manual) 0.3 L Monocytes # (Manual) PT INR POC ABG pH POC ABG pCO2 POC ABG pO2 Sodium Potassium Chloride 95.5 L Carbon Dioxide BUN 29 H Creatinine 2.9 H Glucose 167 H POC Glucose Lactic Acid Calcium AST ALT Alkaline Phosphatase 195 H Total Creatine Kinase CK-MB (CK-2) Rel Index Troponin T C-Reactive Protein Total Protein Albumin 3.6 L LDL Cholesterol Direct HDL Cholesterol Urine WBC (Auto) Salicylates Hepatitis C Antibody
[2017-05-20] MEDS: ZOLOFT PO SCH (11:33)
--- NOTE | 2017-05-20 13:55 | Fluoroscopy Report ---
MODIFIED BARIUM SWALLOW History: dysphagia. Findings: Video radiography was provided by the radiologist for speech therapy to assess the swallowing mechanism. Please refer to the formal report by speech therapy. Impression: Successful modified barium swallow.
--- NOTE | 2017-05-20 17:08 | Progress Note ---
Assessment and Plan Assessment and Plan Assessment and plan: -- septic shock; pressor dependent on Levophed , midodrine, titrate systolic BP >100, map > 65.Today off Levophed hence transfer to Reg floor with remote tele --Sepsis: MRSA pneumonia,on Zyvox, per ID , contact isolation --Leukocytosis; resolved ,f/u chest x-ray resolving infiltrates . --Type 2 diabetes mellitus; Accu-Chek sliding scale coverage ADA diet, and long- acting 70/30 insulin --Acute on chronic respiratory failure; secondary to fluid overload/MRSA pneumonia, BiPAP as needed --Metabolic encephalopathy on admission; s/p intubation --Poor oral nutrition ; nutrition supplements --Coronary artery disease s/p PCI : Stable --Cardiomyopathy ejection fraction of 40% 04/2016 --End-stage renal disease on hemodialysis, HD per schedule --Dyslipidemia; on lipid-lowering medications --DVT prophylaxis; SCD Cardiology, pulmonary, nephrology, ID following Physical therapy occupational therapy DC planning. Case management Disposition; titrate and DC Levophed, possible home with home health versus placement Plan medically stable Subjective Date of service: 05/20/17 Principal diagnosis: MRSA pneumonia, shock,sepsis,ESRD Interval history: Sitting in bed and eating Objective - Constitutional Vitals: Vital Signs - 12hr 05/20/17 05/20/17 05/20/17 05:15 05:30 05:45 Temperature Pulse Rate 88 89 90 Pulse Rate [ Posterior Bilateral Throughout] Respiratory 22 20 19 Rate Respiratory Rate [Posterior Bilateral Throughout] Blood Pressure 84/47 94/49 89/54 O2 Sat by Pulse 100 100 100 Oximetry 05/20/17 05/20/17 05/20/17 06:00 06:15 06:30 Temperature Pulse Rate 95 H 97 H 96 H Pulse Rate [ Posterior Bilateral Throughout] Respiratory 19 24 17 Rate Respiratory Rate [Posterior Bilateral Throughout] Blood Pressure 91/58 96/55 91/53 O2 Sat by Pulse 99 100 99 Oximetry 05/20/17 05/20/17 05/20/17 06:45 07:00 07:15 Temperature Pulse Rate 98 H 97 H 94 H Pulse Rate [ Posterior Bilateral Throughout] Respiratory 22 25 H 21 Rate Respiratory Rate [Posterior Bilateral Throughout] Blood Pressure 89/50 84/48 93/54 O2 Sat by Pulse 91 89 100 Oximetry 05/20/17 05/20/17 05/20/17 07:30 07:31 07:45 Temperature 97.5 F L Pulse Rate 94 H 94 H Pulse Rate [ Posterior Bilateral Throughout] Respiratory 21 23 Rate Respiratory Rate [Posterior Bilateral Throughout] Blood Pressure 86/47 91/57 O2 Sat by Pulse 100 Oximetry 05/20/17 05/20/17 05/20/17 07:54 08:00 08:16 Temperature 97.5 F L Pulse Rate 95 H 94 H Pulse Rate [ Posterior Bilateral Throughout] Respiratory 27 H 22 Rate Respiratory Rate [Posterior Bilateral Throughout] Blood Pressure 92/60 89/52 O2 Sat by Pulse 86 Oximetry 05/20/17 05/20/17 05/20/17 08:30 08:45 09:00 Temperature Pulse Rate 93 H 91 H 89 Pulse Rate [ Posterior Bilateral Throughout] Respiratory 27 H 25 H 21 Rate Respiratory Rate [Posterior Bilateral Throughout] Blood Pressure 111/65 92/51 84/46 O2 Sat by Pulse 72 L 66 L Oximetry 05/20/17 05/20/17 05/20/17 09:15 09:30 09:45 Temperature Pulse Rate 91 H 90 91 H Pulse Rate [ 92 H Posterior Bilateral Throughout] Respiratory 21 24 24 Rate Respiratory 22 Rate [Posterior Bilateral Throughout] Blood Pressure 86/51 83/50 87/53 O2 Sat by Pulse Oximetry 05/20/17 05/20/17 05/20/17 10:00 10:15 10:30 Temperature Pulse Rate 91 H 91 H 92 H Pulse Rate [ Posterior Bilateral Throughout] Respiratory 31 H 22 17 Rate Respiratory Rate [Posterior Bilateral Throughout] Blood Pressure 91/49 88/47 86/39 O2 Sat by Pulse 97 Oximetry 05/20/17 05/20/17 05/20/17 10:45 11:00 11:16 Temperature Pulse Rate 92 H 94 H Pulse Rate [ Posterior Bilateral Throughout] Respiratory 22 31 H Rate Respiratory Rate [Posterior Bilateral Throughout] Blood Pressure 77/44 81/46 160/49 O2 Sat by Pulse 100 Oximetry 05/20/17 05/20/17 05/20/17 11:30 11:46 12:00 Temperature 97.8 F Pulse Rate 94 H 96 H Pulse Rate [ Posterior Bilateral Throughout] Respiratory 24 31 H Rate Respiratory Rate [Posterior Bilateral Throughout] Blood Pressure 160/49 165/135 O2 Sat by Pulse 100 Oximetry 05/20/17 05/20/17 05/20/17 12:34 12:45 13:00 Temperature Pulse Rate 93 H 93 H Pulse Rate [ Posterior Bilateral Throughout] Respiratory 22 23 Rate Respiratory Rate [Posterior Bilateral Throughout] Blood Pressure 90/45 92/55 83/54 O2 Sat by Pulse Oximetry 05/20/17 05/20/17 05/20/17 13:15 13:30 13:45 Temperature Pulse Rate 92 H 91 H 90 Pulse Rate [ Posterior Bilateral Throughout] Respiratory 22 21 20 Rate Respiratory Rate [Posterior Bilateral Throughout] Blood Pressure 93/52 93/52 91/50 O2 Sat by Pulse Oximetry 05/20/17 05/20/17 05/20/17 14:00 14:15 14:30 Temperature Pulse Rate 89 95 H 99 H Pulse Rate [ Posterior Bilateral Throughout] Respiratory 19 17 22 Rate Respiratory Rate [Posterior Bilateral Throughout] Blood Pressure 88/50 81/50 87/51 O2 Sat by Pulse 82 L 100 100 Oximetry 05/20/17 05/20/17 05/20/17 14:45 15:00 15:15 Temperature Pulse Rate 100 H 100 H 100 H Pulse Rate [ Posterior Bilateral Throughout] Respiratory 23 21 22 Rate Respiratory Rate [Posterior Bilateral Throughout] Blood Pressure 92/51 92/52 94/54 O2 Sat by Pulse 100 100 100 Oximetry 05/20/17 05/20/17 05/20/17 15:30 15:45 15:57 Temperature 97.4 F L Pulse Rate 101 H 100 H Pulse Rate [ Posterior Bilateral Throughout] Respiratory 24 19 Rate Respiratory Rate [Posterior Bilateral Throughout] Blood Pressure 85/56 88/29 O2 Sat by Pulse Oximetry 05/20/17 05/20/17 16:00 16:15 Temperature Pulse Rate 100 H 92 H Pulse Rate [ Posterior Bilateral Throughout] Respiratory 22 22 Rate Respiratory Rate [Posterior Bilateral Throughout] Blood Pressure 87/53 90/51 O2 Sat by Pulse Oximetry General appearance: Present: no acute distress, well-nourished - EENT Eyes: PERRL, EOM intact ENT: hearing intact, clear oral mucosa Ears: bilateral: normal - Neck Neck: supple, normal ROM - Respiratory Respiratory effort: normal Respiratory: bilateral: CTA - Breasts Breasts: normal - Cardiovascular Rhythm: regular Heart Sounds: Present: S1 & S2. Absent: gallop, rub Extremities: pulses intact, No edema, normal color, Full ROM - Gastrointestinal General gastrointestinal: Present: soft, non-tender, non-distended, normal bowel sounds - Genitourinary Female genitourinary: normal - Integumentary Integumentary: clear, warm, dry - Musculoskeletal Musculoskeletal: 1, strength equal bilaterally - Neurologic Neurologic: moves all extremities - Psychiatric Psychiatric: memory intact, appropriate mood/affect, intact judgment & insight - Labs CBC & Chem 7: 05/21/17 04:09 05/21/17 04:09 Labs: Abnormal lab results 05/19/17 05/20/17 05/20/17 Range/Units 21:30 05:00 05:00 RBC 3.12 L (3.65-5.03) M/mm3 MCV 106 H (79-97) fl MCH 33 H (28-32) pg RDW 23.7 H (13.2-15.2) % Seg Neuts % (Manual) 93.0 H (40.0-70.0) % Lymphocytes % (Manual) 3.0 L (13.4-35.0) % Seg Neutrophils # Man 9.8 H (1.8-7.7) K/mm3 Lymphocytes # (Manual) 0.3 L (1.2-5.4) K/mm3 Chloride 95.5 L (98-107) mmol/L BUN 29 H (7-17) mg/dL Creatinine 2.9 H (0.7-1.2) mg/dL Glucose 167 H (65-100) mg/dL POC Glucose 145 H (70-105) Alkaline Phosphatase 195 H (35-129) units/L Albumin 3.6 L (3.9-5) g/dL 05/20/17 05/20/17 Range/Units 07:34 11:33 RBC (3.65-5.03) M/mm3 MCV (79-97) fl MCH (28-32) pg RDW (13.2-15.2) % Seg Neuts % (Manual) (40.0-70.0) % Lymphocytes % (Manual) (13.4-35.0) % Seg Neutrophils # Man (1.8-7.7) K/mm3 Lymphocytes # (Manual) (1.2-5.4) K/mm3 Chloride (98-107) mmol/L BUN (7-17) mg/dL Creatinine (0.7-1.2) mg/dL Glucose (65-100) mg/dL POC Glucose 182 H 206 H (70-105) Alkaline Phosphatase (35-129) units/L Albumin (3.9-5) g/dL
[2017-05-21] MEDS: PROVENTIL IH SCH ×4 (02:33→21:15)
[2017-05-21 05:22] LABS: Albumin 3.7 g/dL (3.9-5); Calcium 8.2 mg/dL (8.4-10.2)
[2017-05-21 05:29] LABS: Basophils % (Auto) 0.1 % (0.0-1.8); Hematocrit 35.3 % (30.3-42.9); Hemoglobin 11.2 gm/dl (10.1-14.3); Lymphocytes # (Auto) 1.1 K/mm3 (1.2-5.4); Lymphocytes % (Auto) 8.3 % (13.4-35.0); Mean Corpuscular HGB Conc 32 % (30-34); Mean Corpuscular Hemoglobin 34 pg (28-32); Mean Corpuscular Volume 106 fl (79-97); Monocytes # (Auto) 0.6 K/mm3 (0.0-0.8); Monocytes % (Auto) 4.4 % (0.0-7.3); Platelet Count 297 K/mm3 (140-440); Red Blood Count 3.32 M/mm3 (3.65-5.03)
[2017-05-21 05:40] LABS: Red Cell Distribution Width 23.7 % (13.2-15.2)
[2017-05-21] MEDS: NOVOLOG SUB-Q SCH ×4 (08:01→22:25)
[2017-05-21] MEDS: PROAMATINE PO SCH ×3 (08:02→21:41)
[2017-05-21] MEDS: FLAGYL 500 MG/100 ML 500 MG/100 ML BAG IV SCH ×4 (08:57→23:48)
[2017-05-21] MEDS: NEURONTIN PO SCH ×3 (08:57→21:41)
[2017-05-21] MEDS: RENVELA PO SCH ×3 (09:07→17:05)
--- NOTE | 2017-05-21 09:14 | Progress Note ---
Assessment and Plan 56 y/o female with acute respiratory failure, most likely secondary to volume overload and altered mental status, exact etiology unknown, now with persistent hypotension of unknown etiology, now resolved. 1. Continue TID Midodrine 2. Continue supplemental O2, wean for sats >88%. Not sure if patient wears home o2 3. Bipap PRN 4. OOB to chair, PT/OT Subjective Date of service: 05/21/17 Principal diagnosis: MRSA pneumonia, shock,sepsis,ESRD Interval history: No acute events. Successful transfer out of ICU. Pulm status stable Objective Vital Signs - 12hr 05/21/17 05/21/17 05/21/17 00:21 04:56 07:35 Temperature 94.2 F L 97.4 F L Pulse Rate 84 Pulse Rate [ 99 H Posterior Bilateral Throughout] Respiratory 20 16 Rate Respiratory 16 Rate [Posterior Bilateral Throughout] Blood Pressure 92/57 89/57 O2 Sat by Pulse 99 Oximetry 05/21/17 05/21/17 07:36 07:50 Temperature Pulse Rate Pulse Rate [ 104 H Posterior Bilateral Throughout] Respiratory Rate Respiratory 16 Rate [Posterior Bilateral Throughout] Blood Pressure O2 Sat by Pulse 98 Oximetry Constitutional: no acute distress, alert ENT: oropharynx moist Neck: supple Effort: normal Ascultation: Bilateral: clear, diminished breath sounds, wheezes (few expiratory bilaterally), rales, rhonchi (few bilaterally) Percussion: Bilateral: not dull Cardiovascular: regular rate and rhythm (no mrg) Gastrointestinal: normoactive bowel sounds, soft, non-tender Integumentary: other (Patsy left-sided face) Extremities: no cyanosis, no edema Neurologic: normal mental status, non-focal exam, pupils equal and round, CN II- XII normal, motor strength normal and Psychiatric: mood appropriate, affect normal CBC and BMP: 05/21/17 04:09 05/21/17 04:09 ABG, PT/INR, D-dimer: ABG POC ABG pH 7.450 (7.35-7.45) 05/12/17 13:10 POC ABG pCO2 36.7 (35-45) 05/12/17 13:10 POC ABG pO2 66 (80-105) L 05/12/17 13:10 POC ABG HCO3 25.5 05/12/17 13:10 POC ABG Total CO2 27 05/12/17 13:10 POC ABG O2 Sat 94 05/12/17 13:10 PT/INR, D-dimer PT 14.4 Sec. (12.2-14.9) 05/17/17 04:45 INR 1.06 (0.87-1.13) 05/17/17 04:45 Abnormal lab findings: Abnormal Labs 05/08/17 05/08/17 05/08/17 21:25 21:25 21:25 WBC RBC 2.55 L Hgb 8.9 L Hct 28.1 L MCV 111 H MCH 35 H RDW 25.4 H Lymph % (Auto) [place] % (Auto) Lymph # [place] # Baso # Seg Neutrophils % Seg Neuts % (Manual) 92.0 H Lymphocytes % (Manual) 6.0 L Monocytes % (Manual) Nucleated RBC % Seg Neutrophils # Seg Neutrophils # Man 9.3 H Lymphocytes # (Manual) 0.6 L Monocytes # (Manual) PT 15.2 H INR 1.14 H POC ABG pH POC ABG pCO2 POC ABG pO2 Sodium Potassium Chloride Carbon Dioxide BUN Creatinine Glucose POC Glucose Lactic Acid 2.50 H* Calcium AST ALT Alkaline Phosphatase Total Creatine Kinase CK-MB (CK-2) Rel Index Troponin T C-Reactive Protein Total Protein Albumin LDL Cholesterol Direct HDL Cholesterol Urine WBC (Auto) Salicylates Hepatitis C Antibody 05/08/17 05/08/17 05/08/17 21:35 22:04 22:42 WBC RBC Hgb Hct MCV MCH RDW Lymph % (Auto) [place] % (Auto) Lymph # [place] # Baso # Seg Neutrophils % Seg Neuts % (Manual) Lymphocytes % (Manual) Monocytes % (Manual) Nucleated RBC % Seg Neutrophils # Seg Neutrophils # Man Lymphocytes # (Manual) Monocytes # (Manual) PT INR POC ABG pH 7.271 L POC ABG pCO2 56.5 H POC ABG pO2 30 L Sodium Potassium Chloride 107.8 H Carbon Dioxide BUN 22 H Creatinine 2.6 H Glucose 202 H POC Glucose Lactic Acid Calcium 7.3 L AST ALT Alkaline Phosphatase 258 H Total Creatine Kinase CK-MB (CK-2) Rel Index Troponin T C-Reactive Protein Total Protein 5.2 L Albumin 2.9 L LDL Cholesterol Direct HDL Cholesterol Urine WBC (Auto) Salicylates < 0.3 L Hepatitis C Antibody 05/08/17 05/09/17 05/09/17 Unknown 00:24 06:00 WBC RBC Hgb Hct MCV MCH RDW Lymph % (Auto) [place] % (Auto) Lymph # [place] # Baso # Seg Neutrophils % Seg Neuts % (Manual) Lymphocytes % (Manual) Monocytes % (Manual) Nucleated RBC % Seg Neutrophils # Seg Neutrophils # Man Lymphocytes # (Manual) Monocytes # (Manual) PT INR POC ABG pH 7.283 L POC ABG pCO2 49.9 H POC ABG pO2 249 H Sodium Potassium Chloride Carbon Dioxide BUN Creatinine Glucose POC Glucose Lactic Acid Calcium AST ALT Alkaline Phosphatase Total Creatine Kinase 19 L CK-MB (CK-2) Rel Index 11.0 H Troponin T 0.612 H* C-Reactive Protein Total Protein Albumin LDL Cholesterol Direct 21 L HDL Cholesterol 27 L Urine WBC (Auto) 16.0 H Salicylates Hepatitis C Antibody 05/09/17 05/09/17 05/09/17 06:00 06:00 08:52 WBC 11.7 H RBC 2.67 L Hgb 9.3 L Hct 30.0 L MCV 112 H MCH 35 H RDW 24.4 H Lymph % (Auto) [place] % (Auto) Lymph # [place] # Baso # Seg Neutrophils % Seg Neuts % (Manual) Lymphocytes % (Manual) Monocytes % (Manual) Nucleated RBC % Seg Neutrophils # Seg Neutrophils # Man Lymphocytes # (Manual) Monocytes # (Manual) PT INR POC ABG pH 7.323 L POC ABG pCO2 POC ABG pO2 143 H Sodium Potassium Chloride Carbon Dioxide BUN 24 H Creatinine 2.9 H Glucose 172 H POC Glucose Lactic Acid Calcium 7.7 L AST ALT Alkaline Phosphatase Total Creatine Kinase CK-MB (CK-2) Rel Index Troponin T C-Reactive Protein Total Protein Albumin LDL Cholesterol Direct HDL Cholesterol Urine WBC (Auto) Salicylates Hepatitis C Antibody 05/09/17 05/09/17 05/11/17 14:00 17:00 06:09 WBC 11.4 H RBC 2.66 L Hgb 9.1 L Hct 29.3 L MCV 110 H MCH 34 H RDW 23.1 H Lymph % (Auto) 4.2 L [place] % (Auto) 12.7 H Lymph # 0.5 L [place] # 1.4 H Baso # Seg Neutrophils % 82.5 H Seg Neuts % (Manual) Lymphocytes % (Manual) Monocytes % (Manual) Nucleated RBC % Seg Neutrophils # 9.4 H Seg Neutrophils # Man Lymphocytes # (Manual) Monocytes # (Manual) PT INR POC ABG pH POC ABG pCO2 POC ABG pO2 Sodium Potassium Chloride Carbon Dioxide BUN Creatinine Glucose POC Glucose Lactic Acid Calcium AST ALT Alkaline Phosphatase Total Creatine Kinase 24 L CK-MB (CK-2) Rel Index 9.1 H Troponin T 0.654 H* C-Reactive Protein Total Protein Albumin LDL Cholesterol Direct HDL Cholesterol Urine WBC (Auto) Salicylates Hepatitis C Antibody Reactive A 05/11/17 05/11/17 05/11/17 06:09 08:20 11:34 WBC RBC Hgb Hct MCV MCH RDW Lymph % (Auto) [place] % (Auto) Lymph # [place] # Baso # Seg Neutrophils % Seg Neuts % (Manual) Lymphocytes % (Manual) Monocytes % (Manual) Nucleated RBC % Seg Neutrophils # Seg Neutrophils # Man Lymphocytes # (Manual) Monocytes # (Manual) PT INR POC ABG pH POC ABG pCO2 POC ABG pO2 Sodium Potassium Chloride 95.6 L Carbon Dioxide 20 L BUN 24 H Creatinine 3.4 H Glucose 134 H POC Glucose 154 H 149 H Lactic Acid Calcium AST ALT Alkaline Phosphatase Total Creatine Kinase CK-MB (CK-2) Rel Index Troponin T C-Reactive Protein Total Protein Albumin LDL Cholesterol Direct HDL Cholesterol Urine WBC (Auto) Salicylates Hepatitis C Antibody 05/11/17 05/11/17 05/11/17 15:30 16:27 21:58 WBC RBC Hgb Hct MCV MCH RDW Lymph % (Auto) [place] % (Auto) Lymph # [place] # Baso # Seg Neutrophils % Seg Neuts % (Manual) Lymphocytes % (Manual) Monocytes % (Manual) Nucleated RBC % Seg Neutrophils # Seg Neutrophils # Man Lymphocytes # (Manual) Monocytes # (Manual) PT INR POC ABG pH POC ABG pCO2 POC ABG pO2 Sodium Potassium Chloride Carbon Dioxide BUN Creatinine Glucose POC Glucose 163 H 199 H Lactic Acid Calcium AST ALT Alkaline Phosphatase Total Creatine Kinase CK-MB (CK-2) Rel Index Troponin T C-Reactive Protein 44.70 H Total Protein Albumin LDL Cholesterol Direct HDL Cholesterol Urine WBC (Auto) Salicylates Hepatitis C Antibody 05/12/17 05/12/17 05/12/17 08:42 13:10 14:10 WBC RBC Hgb Hct MCV MCH RDW Lymph % (Auto) [place] % (Auto) Lymph # [place] # Baso # Seg Neutrophils % Seg Neuts % (Manual) Lymphocytes % (Manual) Monocytes % (Manual) Nucleated RBC % Seg Neutrophils # Seg Neutrophils # Man Lymphocytes # (Manual) Monocytes # (Manual) PT INR POC ABG pH POC ABG pCO2 POC ABG pO2 66 L Sodium Potassium Chloride Carbon Dioxide BUN Creatinine Glucose POC Glucose 190 H 162 H Lactic Acid Calcium AST ALT Alkaline Phosphatase Total Creatine Kinase CK-MB (CK-2) Rel Index Troponin T C-Reactive Protein Total Protein Albumin LDL Cholesterol Direct HDL Cholesterol Urine WBC (Auto) Salicylates Hepatitis C Antibody 05/12/17 05/12/17 05/12/17 15:46 16:05 21:42 WBC RBC Hgb Hct MCV MCH RDW Lymph % (Auto) [place] % (Auto) Lymph # [place] # Baso # Seg Neutrophils % Seg Neuts % (Manual) Lymphocytes % (Manual) Monocytes % (Manual) Nucleated RBC % Seg Neutrophils # Seg Neutrophils # Man Lymphocytes # (Manual) Monocytes # (Manual) PT INR POC ABG pH POC ABG pCO2 POC ABG pO2 Sodium Potassium Chloride Carbon Dioxide BUN Creatinine Glucose POC Glucose 153 H 153 H Lactic Acid 2.60 H* Calcium AST ALT Alkaline Phosphatase Total Creatine Kinase CK-MB (CK-2) Rel Index Troponin T C-Reactive Protein Total Protein Albumin LDL Cholesterol Direct HDL Cholesterol Urine WBC (Auto) Salicylates Hepatitis C Antibody 05/13/17 05/13/17 05/13/17 05:12 05:30 05:30 WBC 22.0 H RBC 3.02 L Hgb 9.9 L Hct MCV 105 H MCH 33 H RDW 22.9 H Lymph % (Auto) [place] % (Auto) Lymph # [place] # Baso # Seg Neutrophils % Seg Neuts % (Manual) 89.0 H Lymphocytes % (Manual) 6.0 L Monocytes % (Manual) Nucleated RBC % 1.0 H Seg Neutrophils # Seg Neutrophils # Man 19.6 H Lymphocytes # (Manual) Monocytes # (Manual) 0.9 H PT INR POC ABG pH POC ABG pCO2 POC ABG pO2 Sodium Potassium Chloride 90.8 L Carbon Dioxide 21 L BUN 28 H Creatinine 3.1 H Glucose 172 H POC Glucose 182 H Lactic Acid Calcium AST ALT Alkaline Phosphatase Total Creatine Kinase CK-MB (CK-2) Rel Index Troponin T C-Reactive Protein Total Protein Albumin LDL Cholesterol Direct HDL Cholesterol Urine WBC (Auto) Salicylates Hepatitis C Antibody 05/13/17 05/13/17 05/13/17 11:52 18:01 23:31 WBC RBC Hgb Hct MCV MCH RDW Lymph % (Auto) [place] % (Auto) Lymph # [place] # Baso # Seg Neutrophils % Seg Neuts % (Manual) Lymphocytes % (Manual) Monocytes % (Manual) Nucleated RBC % Seg Neutrophils # Seg Neutrophils # Man Lymphocytes # (Manual) Monocytes # (Manual) PT INR POC ABG pH POC ABG pCO2 POC ABG pO2 Sodium Potassium Chloride Carbon Dioxide BUN Creatinine Glucose POC Glucose 185 H 216 H 281 H Lactic Acid Calcium AST ALT Alkaline Phosphatase Total Creatine Kinase CK-MB (CK-2) Rel Index Troponin T C-Reactive Protein Total Protein Albumin LDL Cholesterol Direct HDL Cholesterol Urine WBC (Auto) Salicylates Hepatitis C Antibody 05/14/17 05/14/17 05/14/17 05:43 06:10 06:10 WBC 19.6 H RBC 3.61 L Hgb Hct MCV 104 H MCH 34 H RDW 23.4 H Lymph % (Auto) 8.6 L [place] % (Auto) Lymph # [place] # 1.3 H Baso # 0.2 H Seg Neutrophils % 82.5 H Seg Neuts % (Manual) Lymphocytes % (Manual) Monocytes % (Manual) Nucleated RBC % Seg Neutrophils # 16.2 H Seg Neutrophils # Man Lymphocytes # (Manual) Monocytes # (Manual) PT INR POC ABG pH POC ABG pCO2 POC ABG pO2 Sodium Potassium 3.4 L Chloride 89.1 L Carbon Dioxide BUN 32 H Creatinine 3.0 H Glucose 224 H POC Glucose 215 H Lactic Acid Calcium AST 85 H ALT 162 H Alkaline Phosphatase 347 H Total Creatine Kinase CK-MB (CK-2) Rel Index Troponin T C-Reactive Protein Total Protein 8.5 H Albumin LDL Cholesterol Direct HDL Cholesterol Urine WBC (Auto) Salicylates Hepatitis C Antibody 05/14/17 05/14/17 05/14/17 08:32 11:26 16:42 WBC RBC Hgb Hct MCV MCH RDW Lymph % (Auto) [place] % (Auto) Lymph # [place] # Baso # Seg Neutrophils % Seg Neuts % (Manual) Lymphocytes % (Manual) Monocytes % (Manual) Nucleated RBC % Seg Neutrophils # Seg Neutrophils # Man Lymphocytes # (Manual) Monocytes # (Manual) PT INR POC ABG pH POC ABG pCO2 POC ABG pO2 Sodium Potassium Chloride Carbon Dioxide BUN Creatinine Glucose POC Glucose 204 H 182 H 310 H Lactic Acid Calcium AST ALT Alkaline Phosphatase Total Creatine Kinase CK-MB (CK-2) Rel Index Troponin T C-Reactive Protein Total Protein Albumin LDL Cholesterol Direct HDL Cholesterol Urine WBC (Auto) Salicylates Hepatitis C Antibody 05/14/17 05/15/17 05/15/17 23:00 03:45 03:45 WBC 18.3 H RBC 3.42 L Hgb Hct MCV 105 H MCH 34 H RDW 23.0 H Lymph % (Auto) 10.4 L [place] % (Auto) 7.7 H Lymph # [place] # 1.4 H Baso # Seg Neutrophils % 79.5 H Seg Neuts % (Manual) Lymphocytes % (Manual) Monocytes % (Manual) Nucleated RBC % Seg Neutrophils # 14.6 H Seg Neutrophils # Man Lymphocytes # (Manual) Monocytes # (Manual) PT INR POC ABG pH POC ABG pCO2 POC ABG pO2 Sodium 132 L Potassium Chloride 88.4 L Carbon Dioxide BUN 29 H Creatinine 2.8 H Glucose 310 H POC Glucose 264 H Lactic Acid Calcium AST 54 H ALT 111 H Alkaline Phosphatase 318 H Total Creatine Kinase CK-MB (CK-2) Rel Index Troponin T C-Reactive Protein Total Protein Albumin 3.7 L LDL Cholesterol Direct HDL Cholesterol Urine WBC (Auto) Salicylates Hepatitis C Antibody 05/15/17 05/15/17 05/15/17 07:36 12:14 12:15 WBC RBC Hgb Hct MCV MCH RDW Lymph % (Auto) [place] % (Auto) Lymph # [place] # Baso # Seg Neutrophils % Seg Neuts % (Manual) Lymphocytes % (Manual) Monocytes % (Manual) Nucleated RBC % Seg Neutrophils # Seg Neutrophils # Man Lymphocytes # (Manual) Monocytes # (Manual) PT INR POC ABG pH POC ABG pCO2 POC ABG pO2 Sodium Potassium Chloride Carbon Dioxide BUN Creatinine Glucose POC Glucose 253 H > 500 H Lactic Acid Calcium AST ALT Alkaline Phosphatase Total Creatine Kinase CK-MB (CK-2) Rel Index Troponin T C-Reactive Protein 14.70 H Total Protein Albumin LDL Cholesterol Direct HDL Cholesterol Urine WBC (Auto) Salicylates Hepatitis C Antibody 05/15/17 05/15/17 05/15/17 12:15 15:43 22:26 WBC RBC Hgb Hct MCV MCH RDW Lymph % (Auto) [place] % (Auto) Lymph # [place] # Baso # Seg Neutrophils % Seg Neuts % (Manual) Lymphocytes % (Manual) Monocytes % (Manual) Nucleated RBC % Seg Neutrophils # Seg Neutrophils # Man Lymphocytes # (Manual) Monocytes # (Manual) PT INR POC ABG pH POC ABG pCO2 POC ABG pO2 Sodium Potassium Chloride Carbon Dioxide BUN Creatinine Glucose 336 H POC Glucose 288 H 243 H Lactic Acid Calcium AST ALT Alkaline Phosphatase Total Creatine Kinase CK-MB (CK-2) Rel Index Troponin T C-Reactive Protein Total Protein Albumin LDL Cholesterol Direct HDL Cholesterol Urine WBC (Auto) Salicylates Hepatitis C Antibody 05/16/17 05/16/17 05/16/17 04:00 04:00 07:26 WBC 23.5 H RBC 3.25 L Hgb Hct MCV 106 H MCH 33 H RDW 23.2 H Lymph % (Auto) [place] % (Auto) Lymph # [place] # Baso # Seg Neutrophils % Seg Neuts % (Manual) Lymphocytes % (Manual) 9.0 L Monocytes % (Manual) 14.0 H Nucleated RBC % Seg Neutrophils # Seg Neutrophils # Man 15.3 H Lymphocytes # (Manual) Monocytes # (Manual) 3.3 H PT INR POC ABG pH POC ABG pCO2 POC ABG pO2 Sodium Potassium Chloride 91.5 L Carbon Dioxide BUN 48 H Creatinine 4.5 H D Glucose POC Glucose 107 H Lactic Acid Calcium AST ALT Alkaline Phosphatase Total Creatine Kinase CK-MB (CK-2) Rel Index Troponin T C-Reactive Protein Total Protein Albumin LDL Cholesterol Direct HDL Cholesterol Urine WBC (Auto) Salicylates Hepatitis C Antibody 05/16/17 05/16/17 05/16/17 11:57 17:14 21:30 WBC RBC Hgb Hct MCV MCH RDW Lymph % (Auto) [place] % (Auto) Lymph # [place] # Baso # Seg Neutrophils % Seg Neuts % (Manual) Lymphocytes % (Manual) Monocytes % (Manual) Nucleated RBC % Seg Neutrophils # Seg Neutrophils # Man Lymphocytes # (Manual) Monocytes # (Manual) PT INR POC ABG pH POC ABG pCO2 POC ABG pO2 Sodium Potassium Chloride Carbon Dioxide BUN Creatinine Glucose POC Glucose 190 H 200 H 152 H Lactic Acid Calcium AST ALT Alkaline Phosphatase Total Creatine Kinase CK-MB (CK-2) Rel Index Troponin T C-Reactive Protein Total Protein Albumin LDL Cholesterol Direct HDL Cholesterol Urine WBC (Auto) Salicylates Hepatitis C Antibody 05/17/17 05/17/17 05/17/17 04:45 04:45 08:20 WBC 16.7 H RBC 3.08 L Hgb Hct MCV 106 H MCH 33 H RDW 23.3 H Lymph % (Auto) 3.8 L [place] % (Auto) Lymph # 0.6 L [place] # 1.1 H Baso # 0.2 H Seg Neutrophils % 87.5 H Seg Neuts % (Manual) Lymphocytes % (Manual) Monocytes % (Manual) Nucleated RBC % Seg Neutrophils # 14.6 H Seg Neutrophils # Man Lymphocytes # (Manual) Monocytes # (Manual) PT INR POC ABG pH POC ABG pCO2 POC ABG pO2 Sodium 134 L Potassium Chloride 89.3 L Carbon Dioxide 21 L BUN 60 H Creatinine 6.1 H Glucose POC Glucose 107 H Lactic Acid Calcium AST ALT Alkaline Phosphatase 226 H Total Creatine Kinase CK-MB (CK-2) Rel Index Troponin T C-Reactive Protein Total Protein Albumin 3.5 L LDL Cholesterol Direct HDL Cholesterol Urine WBC (Auto) Salicylates Hepatitis C Antibody 05/17/17 05/17/17 05/17/17 11:24 16:24 21:34 WBC RBC Hgb Hct MCV MCH RDW Lymph % (Auto) [place] % (Auto) Lymph # [place] # Baso # Seg Neutrophils % Seg Neuts % (Manual) Lymphocytes % (Manual) Monocytes % (Manual) Nucleated RBC % Seg Neutrophils # Seg Neutrophils # Man Lymphocytes # (Manual) Monocytes # (Manual) PT INR POC ABG pH POC ABG pCO2 POC ABG pO2 Sodium Potassium Chloride Carbon Dioxide BUN Creatinine Glucose POC Glucose 172 H 116 H 182 H Lactic Acid Calcium AST ALT Alkaline Phosphatase Total Creatine Kinase CK-MB (CK-2) Rel Index Troponin T C-Reactive Protein Total Protein Albumin LDL Cholesterol Direct HDL Cholesterol Urine WBC (Auto) Salicylates Hepatitis C Antibody 05/18/17 05/18/17 05/18/17 05:06 08:01 11:32 WBC RBC Hgb Hct MCV MCH RDW Lymph % (Auto) [place] % (Auto) Lymph # [place] # Baso # Seg Neutrophils % Seg Neuts % (Manual) Lymphocytes % (Manual) Monocytes % (Manual) Nucleated RBC % Seg Neutrophils # Seg Neutrophils # Man Lymphocytes # (Manual) Monocytes # (Manual) PT INR POC ABG pH POC ABG pCO2 POC ABG pO2 Sodium Potassium Chloride Carbon Dioxide BUN Creatinine Glucose POC Glucose 153 H 145 H 247 H Lactic Acid Calcium AST ALT Alkaline Phosphatase Total Creatine Kinase CK-MB (CK-2) Rel Index Troponin T C-Reactive Protein Total Protein Albumin LDL Cholesterol Direct HDL Cholesterol Urine WBC (Auto) Salicylates Hepatitis C Antibody 05/18/17 05/18/17 05/19/17 16:09 22:17 03:00 WBC RBC 2.88 L Hgb 9.8 L Hct 30.2 L MCV 105 H MCH 34 H RDW 23.6 H Lymph % (Auto) 7.1 L [place] % (Auto) Lymph # 0.5 L [place] # Baso # Seg Neutrophils % 86.5 H Seg Neuts % (Manual) Lymphocytes % (Manual) Monocytes % (Manual) Nucleated RBC % Seg Neutrophils # Seg Neutrophils # Man Lymphocytes # (Manual) Monocytes # (Manual) PT INR POC ABG pH POC ABG pCO2 POC ABG pO2 Sodium Potassium Chloride Carbon Dioxide BUN Creatinine Glucose POC Glucose 237 H 162 H Lactic Acid Calcium AST ALT Alkaline Phosphatase Total Creatine Kinase CK-MB (CK-2) Rel Index Troponin T C-Reactive Protein Total Protein Albumin LDL Cholesterol Direct HDL Cholesterol Urine WBC (Auto) Salicylates Hepatitis C Antibody 05/19/17 05/19/17 05/19/17 03:00 07:19 21:30 WBC RBC Hgb Hct MCV MCH RDW Lymph % (Auto) [place] % (Auto) Lymph # [place] # Baso # Seg Neutrophils % Seg Neuts % (Manual) Lymphocytes % (Manual) Monocytes % (Manual) Nucleated RBC % Seg Neutrophils # Seg Neutrophils # Man Lymphocytes # (Manual) Monocytes # (Manual) PT INR POC ABG pH POC ABG pCO2 POC ABG pO2 Sodium 136 L Potassium Chloride 90.1 L Carbon Dioxide BUN 49 H Creatinine 4.8 H Glucose 126 H POC Glucose 128 H 145 H Lactic Acid Calcium AST ALT Alkaline Phosphatase Total Creatine Kinase CK-MB (CK-2) Rel Index Troponin T C-Reactive Protein Total Protein Albumin LDL Cholesterol Direct HDL Cholesterol Urine WBC (Auto) Salicylates Hepatitis C Antibody 05/20/17 05/20/17 05/20/17 05:00 05:00 07:34 WBC RBC 3.12 L Hgb Hct MCV 106 H MCH 33 H RDW 23.7 H Lymph % (Auto) [place] % (Auto) Lymph # [place] # Baso # Seg Neutrophils % Seg Neuts % (Manual) 93.0 H Lymphocytes % (Manual) 3.0 L Monocytes % (Manual) Nucleated RBC % Seg Neutrophils # Seg Neutrophils # Man 9.8 H Lymphocytes # (Manual) 0.3 L Monocytes # (Manual) PT INR POC ABG pH POC ABG pCO2 POC ABG pO2 Sodium Potassium Chloride 95.5 L Carbon Dioxide BUN 29 H Creatinine 2.9 H Glucose 167 H POC Glucose 182 H Lactic Acid Calcium AST ALT Alkaline Phosphatase 195 H Total Creatine Kinase CK-MB (CK-2) Rel Index Troponin T C-Reactive Protein Total Protein Albumin 3.6 L LDL Cholesterol Direct HDL Cholesterol Urine WBC (Auto) Salicylates Hepatitis C Antibody 05/20/17 05/20/17 05/20/17 11:33 15:52 22:59 WBC RBC Hgb Hct MCV MCH RDW Lymph % (Auto) [place] % (Auto) Lymph # [place] # Baso # Seg Neutrophils % Seg Neuts % (Manual) Lymphocytes % (Manual) Monocytes % (Manual) Nucleated RBC % Seg Neutrophils # Seg Neutrophils # Man Lymphocytes # (Manual) Monocytes # (Manual) PT INR POC ABG pH POC ABG pCO2 POC ABG pO2 Sodium Potassium Chloride Carbon Dioxide BUN Creatinine Glucose POC Glucose 206 H 164 H 121 H Lactic Acid Calcium AST ALT Alkaline Phosphatase Total Creatine Kinase CK-MB (CK-2) Rel Index Troponin T C-Reactive Protein Total Protein Albumin LDL Cholesterol Direct HDL Cholesterol Urine WBC (Auto) Salicylates Hepatitis C Antibody 05/21/17 05/21/17 04:09 04:09 WBC 13.8 H RBC 3.32 L Hgb Hct MCV 106 H MCH 34 H RDW 23.7 H Lymph % (Auto) 8.3 L [place] % (Auto) Lymph # 1.1 L [place] # Baso # Seg Neutrophils % 87.2 H Seg Neuts % (Manual) Lymphocytes % (Manual) Monocytes % (Manual) Nucleated RBC % Seg Neutrophils # 12.0 H Seg Neutrophils # Man Lymphocytes # (Manual) Monocytes # (Manual) PT INR POC ABG pH POC ABG pCO2 POC ABG pO2 Sodium Potassium Chloride 90.6 L Carbon Dioxide BUN 59 H Creatinine 4.1 H Glucose 112 H POC Glucose Lactic Acid Calcium 8.2 L AST ALT Alkaline Phosphatase 191 H Total Creatine Kinase CK-MB (CK-2) Rel Index Troponin T C-Reactive Protein Total Protein Albumin 3.7 L LDL Cholesterol Direct HDL Cholesterol Urine WBC (Auto) Salicylates Hepatitis C Antibody
--- NOTE | 2017-05-21 09:29 | Progress Note ---
Assessment and Plan (1) ESRD (end stage renal disease) Current Visit: Yes Status: Chronic Plan to address problem: HD today for clearance and volume removal Fluid restriction of 1 liter per day Renally dose medications Monitor I/O's Obtain daily weights Assess dialysis needs daily (2) Diabetes mellitus Current Visit: Yes Status: Acute Plan to address problem: As per primary team (3) Acute hypoxemic respiratory failure Current Visit: No Status: Acute Plan to address problem: On venturi mask. (4) Hypotension Current Visit: Yes Status: Acute Plan to address problem: on Midodrine, off levo (5) Pneumonia Current Visit: No Status: Acute Qualifiers: Laterality: bilateral Plan to address problem: abx per ID Subjective Date of service: 05/21/17 Principal diagnosis: MRSA pneumonia, shock,sepsis,ESRD Interval history: remains to feel weak, denies overnight events Objective - Vital Signs Vital signs: Vital Signs - 12hr 05/21/17 05/21/17 05/21/17 00:21 04:56 07:35 Temperature 94.2 F L 97.4 F L Pulse Rate 84 Pulse Rate [ 99 H Posterior Bilateral Throughout] Respiratory 20 16 Rate Respiratory 16 Rate [Posterior Bilateral Throughout] Blood Pressure 92/57 89/57 O2 Sat by Pulse 99 Oximetry 05/21/17 05/21/17 07:36 07:50 Temperature Pulse Rate Pulse Rate [ 104 H Posterior Bilateral Throughout] Respiratory Rate Respiratory 16 Rate [Posterior Bilateral Throughout] Blood Pressure O2 Sat by Pulse 98 Oximetry - General Appearance General appearance: well-developed, cachectic EENT: ATNC, PERRL, mucous membranes moist Neck: no JVD, no carotid bruit Respiratory: Present: Clear to Ascultation. Absent: Rales, Ronchi Cardiology: regular, S1S2 Gastrointestinal: normoactive bowel sounds, no tenderness, no distended, no guarding Integumentary: no rash, warm and dry Neurologic: no focal deficit, no asterixis, alert and oriented x3 Musculoskeletal: other (no edema in BLE) Psychiatric: mood/affect appropriate, cooperative - Lab 05/21/17 04:09 05/21/17 04:09 Most recent lab results Calcium 8.2 mg/dL (8.4-10.2) L 05/21/17 04:09 Magnesium 2.20 mg/dL (1.7-2.3) 05/19/17 03:00
--- NOTE | 2017-05-21 09:44 | Progress Note ---
Assessment and Plan Assessment: 1) Sepsis with septic shock: resolved. Etiology most likely pneumonia. 2) Bilateral pneumonia: -tracheal asp + MRSA -CRP very high at 44 --> 14 -CT chest - ector alveolar densities, repeat CXR better 3) Resp failure - better 4) HCV / Ascitis 5) ESRD on HD 6) CAD 7) CHF with exacerbation 8) LALO - worsening on HD now 9) Recurrent falls 10) Diarrhea ? - better Plan: -continue flagyl day 3 of 5 -contact isolation -monitor leukocytosis Thank you Dr Gutierrez for your consultation, will follow up with you. Tamera Butler MD Infectious Diseases Specialist [facility] ([facility]) M [phone] O [phone] Subjective Date of service: 05/21/17 Principal diagnosis: MRSA pneumonia, shock,sepsis,ESRD Interval history: Feels better. She is hungry. No fever. No new diarrhea. Some hypotension. Microbiology: Blood cultures: 05/09 neg 05/16 ngtd Urine cultures: Respiratory cultures: TA 05/09 MRSA Current Antimicrobials: zyvox 05/12 flagyl 05/19 Previous Antimicrobials: Ceftriaxone Objective - Exam Narrative Exam: General appearance: alert in NAD Eyes: anicteric sclerae, moist conjunctivae; no lid-lag; PERRLA HENT: Atraumatic Neck: Trachea midline; supple, no thyromegaly or lymphadenopathy Lungs: decreased left side BS CV: rrr Abdomen: Soft, non-tender Extremities: No peripheral edema or extremity lymphadenopathy Skin: +multiple ecchymoses left forehead Psych:alert Neuro: alert Moving all extermities Lines: No CVL / PICC - Constitutional Vitals: Vital Signs Temp Pulse Resp BP Pulse Ox 97.4 F L 104 H 16 89/57 98 05/21/17 04:56 05/21/17 07:50 05/21/17 07:50 05/21/17 04:56 05/21/17 07:36 Temperature -Last 24 Hours Temperature 97.4 F Temperature 94.2 F Temperature 98.4 F Temperature 97.4 F Temperature 97.8 F - Labs CBC & Chem 7: 05/21/17 04:09 05/21/17 04:09 Labs: Abnormal lab results 05/20/17 05/20/17 05/20/17 Range/Units 07:34 11:33 15:52 WBC (4.5-11.0) K/mm3 RBC (3.65-5.03) M/mm3 MCV (79-97) fl MCH (28-32) pg RDW (13.2-15.2) % Lymph % (Auto) (13.4-35.0) % Lymph # (1.2-5.4) K/mm3 Seg Neutrophils % (40.0-70.0) % Seg Neutrophils # (1.8-7.7) K/mm3 Chloride (98-107) mmol/L BUN (7-17) mg/dL Creatinine (0.7-1.2) mg/dL Glucose (65-100) mg/dL POC Glucose 182 H 206 H 164 H (70-105) Calcium (8.4-10.2) mg/dL Alkaline Phosphatase (35-129) units/L Albumin (3.9-5) g/dL 05/20/17 05/21/17 05/21/17 Range/Units 22:59 04:09 04:09 WBC 13.8 H (4.5-11.0) K/mm3 RBC 3.32 L (3.65-5.03) M/mm3 MCV 106 H (79-97) fl MCH 34 H (28-32) pg RDW 23.7 H (13.2-15.2) % Lymph % (Auto) 8.3 L (13.4-35.0) % Lymph # 1.1 L (1.2-5.4) K/mm3 Seg Neutrophils % 87.2 H (40.0-70.0) % Seg Neutrophils # 12.0 H (1.8-7.7) K/mm3 Chloride 90.6 L (98-107) mmol/L BUN 59 H (7-17) mg/dL Creatinine 4.1 H (0.7-1.2) mg/dL Glucose 112 H (65-100) mg/dL POC Glucose 121 H (70-105) Calcium 8.2 L (8.4-10.2) mg/dL Alkaline Phosphatase 191 H (35-129) units/L Albumin 3.7 L (3.9-5) g/dL
--- NOTE | 2017-05-21 10:00 | Progress Note ---
Assessment and Plan Acute on chronic systolic heart failure- improving ICMP - echo 04/17/2017 showed EF 40% Elevated troponins - ECG with NAF; pt with no c/o chest pain; currently nonspecific in setting of acutely decompensated HF, sepsis, and ESRD Acute respiratory failure - s/p extubation AMS - head CT with NAF MRSA pneumonia/atelectasis Septic shock ESRD on HD - TTS HD schedule CAD, [place] with PCI of mid LAD and mid circ at [facility] (01/20/2016), NSTEMI with subacute left circ and LAD stent thrombosis s/p stent of left circ and balloon angioplasty alone of LAD (02/22/2016) DM H/o HTN - with hypotension since admission HLP Anemia Hepatitis C Moderate to severe TR Pulmonary HTN - RVSP 57.9mmHg Patient is known to have multiple problems including congestive heart failure, renal failure and respiratory failure. Patient is known to have coronary artery disease and had previous myocardial infarction and PTCA. Hypotension is the latest problem and is gradually improving. Continue current management. Discussed with family today and guarded prognosis is explained. Continue current management - Patient Problems (1) Hypertension Current Visit: Yes Status: Acute (2) Hypotension Current Visit: Yes Status: Acute (3) CHF (congestive heart failure) Current Visit: No Status: Acute Qualifiers: Congestive heart failure type: unspecified congestive heart failure type Congestive heart failure chronicity: acute Qualified Code(s): I50.9 - Heart failure, unspecified (4) Recent myocardial infarction Current Visit: No Status: Acute (5) Respiratory failure Current Visit: Yes Status: Acute (6) ESRD (end stage renal disease) Current Visit: Yes Status: Chronic Subjective Date of service: 05/21/17 Principal diagnosis: MRSA pneumonia, shock,sepsis,ESRD Interval history: Patient complains of being weak. No significant chest pain. Dyspnea is present. Objective Vital Signs Temp Pulse Pulse Resp Resp BP Pulse Ox 05/21/17 07:50 104 H 16 05/21/17 07:36 98 05/21/17 07:35 99 H 16 05/21/17 04:56 97.4 F L 16 89/57 05/21/17 00:21 94.2 F L 84 20 92/57 99 05/20/17 20:20 98 H 18 05/20/17 20:11 100 05/20/17 20:08 93 H 18 05/20/17 19:45 96 05/20/17 19:31 98.4 F 92 H 14 87/55 100 05/20/17 18:30 93 H 23 89/52 05/20/17 18:20 95 H 26 H 90/52 95 05/20/17 18:10 93 H 21 94/54 96 05/20/17 18:00 95 H 27 H 94/54 100 05/20/17 17:45 96 H 31 H 92/55 95 05/20/17 17:30 95 H 29 H 94/54 100 05/20/17 17:15 95 H 32 H 89/50 98 05/20/17 17:00 95 H 28 H 88/54 100 05/20/17 16:45 95 H 19 87/51 100 05/20/17 16:30 93 H 21 90/51 100 05/20/17 16:15 92 H 22 90/51 05/20/17 16:00 100 H 22 87/53 05/20/17 15:57 97.4 F L 05/20/17 15:45 100 H 19 88/29 05/20/17 15:30 101 H 24 85/56 05/20/17 15:15 100 H 22 94/54 100 05/20/17 15:00 100 H 21 92/52 100 05/20/17 14:45 100 H 23 92/51 100 05/20/17 14:30 99 H 22 87/51 100 05/20/17 14:15 95 H 17 81/50 100 05/20/17 14:00 89 19 88/50 82 L 05/20/17 13:45 90 20 91/50 05/20/17 13:30 91 H 21 93/52 05/20/17 13:15 92 H 22 93/52 05/20/17 13:00 93 H 23 83/54 05/20/17 12:45 93 H 22 92/55 05/20/17 12:34 90/45 05/20/17 12:00 97.8 F 05/20/17 11:46 96 H 31 H 165/135 05/20/17 11:30 94 H 24 160/49 100 05/20/17 11:16 94 H 31 H 160/49 100 05/20/17 11:00 81/46 12/21/17 10:45 92 H 22 77/44 05/20/17 10:30 92 H 17 86/39 05/20/17 10:15 91 H 96 H 22 20 88/47 05/20/17 10:00 91 H 31 H 91/49 97 - Physical Examination General: No Apparent Distress, Other (appears to be chronically ill) HEENT: Positive: PERRL, Normocephaly, Mucus Membranes Moist Neck: Positive: neck supple, trachea midline Cardiac: Positive: Reg Rate and Rhythm Lungs: Positive: Decreased Breath Sounds (both bases) Neuro: Positive: Grossly Intact Abdomen: Positive: Soft. Negative: Tender Skin: Positive: Clear. Negative: Rash, Wound Musculoskeletal: No Fluid Collection, No Pain, Normal Range of Motion Extremities: Absent: edema - Labs and Meds Cardiac Enzymes 05/21/17 Range/Units 04:09 AST 13 (5-40) units/L CBC 05/21/17 Range/Units 04:09 WBC 13.8 H (4.5-11.0) K/mm3 RBC 3.32 L (3.65-5.03) M/mm3 Hgb 11.2 (10.1-14.3) gm/dl Hct 35.3 (30.3-42.9) % Plt Count 297 (140-440) K/mm3 Lymph # 1.1 L (1.2-5.4) K/mm3 [place] # 0.6 (0.0-0.8) K/mm3 Eos # 0.0 (0.0-0.4) K/mm3 Baso # 0.0 (0.0-0.1) K/mm3 Comprehensive Metabolic Panel 05/21/17 Range/Units 04:09 Sodium 137 (137-145) mmol/L Potassium 4.7 (3.6-5.0) mmol/L Chloride 90.6 L (98-107) mmol/L Carbon Dioxide 23 (22-30) mmol/L BUN 59 H (7-17) mg/dL Creatinine 4.1 H (0.7-1.2) mg/dL Glucose 112 H (65-100) mg/dL Calcium 8.2 L (8.4-10.2) mg/dL AST 13 (5-40) units/L ALT 19 (7-56) units/L Alkaline Phosphatase 191 H (35-129) units/L Total Protein 7.1 (6.3-8.2) g/dL Albumin 3.7 L (3.9-5) g/dL - Imaging and Cardiology EKG: report reviewed, image reviewed Cardiac cath: report reviewed ([place] and PCI of mid LAD and mid circ on 01/20/2016; subacute left circ and LAD stent thrombosis s/p stent of left circ and balloon angioplasty alone of LAD (02/22/2016)) - EKG Sinus rhythms and dysrhythmias: sinus rhythm AV and intraventricular conduction: right bundle branch block (incomplete)
[2017-05-21] MEDS: BABY ASPIRIN PO SCH (12:38)
[2017-05-21] MEDS: HEPARIN SUB-Q SCH ×2 (12:38→21:47)
[2017-05-21] MEDS: SENSIPAR PO SCH ×2 (14:48→21:41)
[2017-05-21] MEDS: HABITROL TD SCH (15:12)
[2017-05-21] MEDS: ZOLOFT PO SCH (15:13)
--- NOTE | 2017-05-21 17:36 | Progress Note ---
Assessment and Plan Assessment and Plan Assessment and plan: -- septic shock; off Levophed, Reg floor with remote tele --Sepsis: MRSA pneumonia,on Zyvox, per ID , contact isolation --Leukocytosis; resolved ,f/u chest x-ray resolving infiltrates . --Type 2 diabetes mellitus; Accu-Chek sliding scale coverage ADA diet, and long- acting 70/30 insulin --Acute on chronic respiratory failure; secondary to fluid overload/MRSA pneumonia, BiPAP as needed --Metabolic encephalopathy on admission; s/p intubation --Poor oral nutrition ; nutrition supplements --Coronary artery disease s/p PCI : Stable --Cardiomyopathy ejection fraction of 40% 04/2016 --End-stage renal disease on hemodialysis, HD per schedule --Dyslipidemia; on lipid-lowering medications --DVT prophylaxis; SCD Cardiology, pulmonary, nephrology, ID following Physical therapy occupational therapy DC planning. Case management Disposition; titrate and DC Levophed, possible home with home health versus placement Plan medically stable Subjective Date of service: 05/21/17 Principal diagnosis: MRSA pneumonia, shock,sepsis,ESRD Interval history: Sitting in bed and watching TV Objective - Constitutional Vitals: Vital Signs - 12hr 05/21/17 05/21/17 05/21/17 07:35 07:36 07:50 Temperature Pulse Rate Pulse Rate [ 99 H 104 H Posterior Bilateral Throughout] Respiratory Rate Respiratory 16 16 Rate [Posterior Bilateral Throughout] Blood Pressure O2 Sat by Pulse 98 Oximetry 05/21/17 05/21/17 05/21/17 09:40 10:20 10:30 Temperature 98.7 F 97.8 F Pulse Rate 95 H 93 H 89 Pulse Rate [ Posterior Bilateral Throughout] Respiratory 18 18 Rate Respiratory Rate [Posterior Bilateral Throughout] Blood Pressure 110/87 90/56 100/59 O2 Sat by Pulse 93 Oximetry 05/21/17 05/21/17 05/21/17 10:45 11:00 11:15 Temperature Pulse Rate 90 89 86 Pulse Rate [ Posterior Bilateral Throughout] Respiratory Rate Respiratory Rate [Posterior Bilateral Throughout] Blood Pressure 101/60 97/60 99/60 O2 Sat by Pulse Oximetry 05/21/17 05/21/17 05/21/17 11:30 11:45 12:00 Temperature Pulse Rate 82 84 84 Pulse Rate [ Posterior Bilateral Throughout] Respiratory Rate Respiratory Rate [Posterior Bilateral Throughout] Blood Pressure 100/49 93/55 96/55 O2 Sat by Pulse Oximetry 05/21/17 05/21/17 05/21/17 12:15 12:30 12:45 Temperature Pulse Rate 84 87 88 Pulse Rate [ Posterior Bilateral Throughout] Respiratory Rate Respiratory Rate [Posterior Bilateral Throughout] Blood Pressure 94/56 95/55 95/55 O2 Sat by Pulse Oximetry 05/21/17 05/21/17 05/21/17 13:00 13:15 13:30 Temperature Pulse Rate 89 85 90 Pulse Rate [ Posterior Bilateral Throughout] Respiratory Rate Respiratory Rate [Posterior Bilateral Throughout] Blood Pressure 87/45 96/47 93/48 O2 Sat by Pulse Oximetry 05/21/17 05/21/17 13:37 13:45 Temperature 98.8 F Pulse Rate 98 H 93 H Pulse Rate [ Posterior Bilateral Throughout] Respiratory 18 Rate Respiratory Rate [Posterior Bilateral Throughout] Blood Pressure 90/54 114/59 O2 Sat by Pulse Oximetry General appearance: Present: no acute distress, well-nourished - EENT Eyes: PERRL, EOM intact ENT: hearing intact, clear oral mucosa Ears: bilateral: normal - Neck Neck: supple, normal ROM - Respiratory Respiratory effort: normal Respiratory: bilateral: CTA - Breasts Breasts: normal - Cardiovascular Heart rate: 76 Rhythm: regular Heart Sounds: Present: S1 & S2. Absent: gallop, rub Extremities: pulses intact, No edema, normal color, Full ROM - Gastrointestinal General gastrointestinal: Present: soft, non-tender, non-distended, normal bowel sounds - Genitourinary Female genitourinary: normal - Integumentary Integumentary: clear, warm, dry - Musculoskeletal Musculoskeletal: 1, strength equal bilaterally - Neurologic Neurologic: moves all extremities - Psychiatric Psychiatric: memory intact, appropriate mood/affect, intact judgment & insight - Labs CBC & Chem 7: 05/21/17 04:09 05/21/17 04:09 Labs: Abnormal lab results 05/20/17 05/20/17 05/21/17 Range/Units 15:52 22:59 04:09 WBC 13.8 H (4.5-11.0) K/mm3 RBC 3.32 L (3.65-5.03) M/mm3 MCV 106 H (79-97) fl MCH 34 H (28-32) pg RDW 23.7 H (13.2-15.2) % Lymph % (Auto) 8.3 L (13.4-35.0) % Lymph # 1.1 L (1.2-5.4) K/mm3 Seg Neutrophils % 87.2 H (40.0-70.0) % Seg Neutrophils # 12.0 H (1.8-7.7) K/mm3 Chloride (98-107) mmol/L BUN (7-17) mg/dL Creatinine (0.7-1.2) mg/dL Glucose (65-100) mg/dL POC Glucose 164 H 121 H (70-105) Calcium (8.4-10.2) mg/dL Alkaline Phosphatase (35-129) units/L Albumin (3.9-5) g/dL 05/21/17 05/21/17 Range/Units 04:09 12:35 WBC (4.5-11.0) K/mm3 RBC (3.65-5.03) M/mm3 MCV (79-97) fl MCH (28-32) pg RDW (13.2-15.2) % Lymph % (Auto) (13.4-35.0) % Lymph # (1.2-5.4) K/mm3 Seg Neutrophils % (40.0-70.0) % Seg Neutrophils # (1.8-7.7) K/mm3 Chloride 90.6 L (98-107) mmol/L BUN 59 H (7-17) mg/dL Creatinine 4.1 H (0.7-1.2) mg/dL Glucose 112 H (65-100) mg/dL POC Glucose 128 H (70-105) Calcium 8.2 L (8.4-10.2) mg/dL Alkaline Phosphatase 191 H (35-129) units/L Albumin 3.7 L (3.9-5) g/dL
[2017-05-21] MEDS: ZOFRAN IV PRN (17:43)
[2017-05-22] MEDS: PROVENTIL IH SCH ×3 (02:30→14:35)
[2017-05-22] MEDS: PROAMATINE PO SCH ×3 (02:49→20:22)
[2017-05-22] MEDS: TYLENOL PO PRN (02:59)
[2017-05-22] MEDS: NEURONTIN PO SCH ×3 (05:12→21:28)
[2017-05-22] MEDS: FLAGYL 500 MG/100 ML 500 MG/100 ML BAG IV SCH (05:12)
[2017-05-22] MEDS: NOVOLOG SUB-Q SCH ×4 (07:37→22:32)
[2017-05-22] MEDS: BABY ASPIRIN PO SCH (09:39)
[2017-05-22] MEDS: HEPARIN SUB-Q SCH ×2 (09:39→21:28)
[2017-05-22] MEDS: HABITROL TD SCH (09:39)
[2017-05-22] MEDS: SENSIPAR PO SCH ×2 (09:39→21:28)
[2017-05-22] MEDS: RENVELA PO SCH ×3 (09:39→17:17)
[2017-05-22] MEDS: ZOLOFT PO SCH (09:39)
--- NOTE | 2017-05-22 10:03 | Progress Note ---
Assessment and Plan Acute on chronic systolic heart failure- improving ICMP - echo 04/17/2017 showed EF 40% nstemi type 2 - ECG with NAF; Acute respiratory failure - s/p extubation AMS - head CT with NAF MRSA pneumonia/atelectasis Septic shock ESRD on HD - TTS HD schedule CAD, [place] with PCI of mid LAD and mid circ at [facility] (01/20/2016), NSTEMI with subacute left circ and LAD stent thrombosis s/p stent of left circ and balloon angioplasty alone of LAD (02/22/2016) DM H/o HTN - with hypotension since admission HLP Anemia Hepatitis C Moderate to severe TR Pulmonary HTN - RVSP 57.9mmHg rec: In view of patient's stable hypotension on midrone is not a candidate for beta blockers or Emir inhibitors patient will continue dialysis for fluid status is on aspirin statin medication continue current cardiac meds waiting detention placement no cardiac heart dictation at this time to transfer back to detention Subjective Date of service: 05/22/17 Principal diagnosis: MRSA pneumonia, shock,sepsis,ESRD Interval history: Patient sitting in bed no shortness of breath Objective Vital Signs Temp Pulse Pulse Resp Resp BP Pulse Ox 05/22/17 07:42 97.3 F L 84 18 97/59 98 05/22/17 04:15 98.7 F 86 16 96/57 97 05/22/17 03:31 90 21 145/100 95 05/22/17 03:21 101 H 15 145/100 95 05/22/17 03:11 102 H 14 145/100 95 05/22/17 03:08 98 H 97 05/21/17 23:52 97.4 F L 05/21/17 23:16 96 H 19 90/56 92 05/21/17 21:25 89 18 98 05/21/17 21:15 88 18 05/21/17 16:32 97.4 F L 92 H 18 99/61 98 05/21/17 13:45 98.8 F 93 H 18 114/59 05/21/17 13:37 98 H 90/54 05/21/17 13:30 90 93/48 05/21/17 13:15 85 96/47 05/21/17 13:00 89 87/45 05/21/17 12:45 88 95/55 05/21/17 12:30 87 95/55 05/21/17 12:15 84 94/56 05/21/17 12:00 84 96/55 05/21/17 11:45 84 93/55 05/21/17 11:30 82 100/49 05/21/17 11:15 86 99/60 05/21/17 11:00 89 97/60 05/21/17 10:45 90 101/60 05/21/17 10:30 89 100/59 05/21/17 10:20 97.8 F 93 H 18 90/56 - Physical Examination General: No Apparent Distress, Other (appears to be chronically ill) HEENT: Positive: PERRL, Normocephaly, Mucus Membranes Moist Neck: Positive: neck supple, trachea midline Cardiac: Positive: Reg Rate and Rhythm Lungs: Positive: clear to auscultation Neuro: Positive: Grossly Intact Abdomen: Positive: Soft. Negative: Tender Skin: Positive: Clear. Negative: Rash, Wound Musculoskeletal: No Fluid Collection, No Pain, Normal Range of Motion Extremities: Absent: edema - Imaging and Cardiology EKG: report reviewed, image reviewed Cardiac cath: report reviewed ([place] and PCI of mid LAD and mid circ on 01/20/2016; subacute left circ and LAD stent thrombosis s/p stent of left circ and balloon angioplasty alone of LAD (02/22/2016)) - Telemetry EKG Rhythm: Sinus Rhythm - EKG Sinus rhythms and dysrhythmias: sinus rhythm AV and intraventricular conduction: right bundle branch block (incomplete)
--- NOTE | 2017-05-22 11:05 | Progress Note ---
Assessment and Plan Assessment: 1) Sepsis with septic shock: resolved. Etiology most likely pneumonia. 2) Bilateral pneumonia: -tracheal asp + MRSA -CRP very high at 44 --> 14 -CT chest - ector alveolar densities, repeat CXR better 3) Resp failure - better 4) HCV / Ascitis 5) ESRD on HD 6) CAD 7) CHF with exacerbation 8) LALO - worsening on HD now 9) Recurrent falls 10) Diarrhea ? - better Plan: -stop flagyl no new diarrhea -contact isolation -monitor leukocytosis I am signing off Thank you Dr Gutierrez for your consultation, will follow up with you. Tamera Butler MD Infectious Diseases Specialist [facility] ([facility]) M [phone] O [phone] Subjective Date of service: 05/22/17 Principal diagnosis: MRSA pneumonia, shock,sepsis,ESRD Interval history: Feels weak and non talkative today. No fever. No new diarrhea. Some hypotension. Microbiology: Blood cultures: 05/09 neg 05/16 ngtd Urine cultures: Respiratory cultures: TA 05/09 MRSA Current Antimicrobials: flagyl 05/19 Previous Antimicrobials: Ceftriaxone zyvox 05/12 Objective - Exam Narrative Exam: General appearance: alert in NAD Eyes: anicteric sclerae, moist conjunctivae; no lid-lag; PERRLA HENT: Atraumatic Neck: Trachea midline; supple, no thyromegaly or lymphadenopathy Lungs: decreased left side BS CV: rrr Abdomen: Soft, non-tender Extremities: No peripheral edema or extremity lymphadenopathy Skin: +multiple ecchymoses left forehead Psych:alert Neuro: alert Moving all extermities Lines: No CVL / PICC - Constitutional Vitals: Vital Signs Temp Pulse Resp BP Pulse Ox 97.3 F L 84 18 97/59 98 05/22/17 07:42 05/22/17 07:42 05/22/17 07:42 05/22/17 07:42 05/22/17 07:42 Temperature -Last 24 Hours Temperature 97.3 F Temperature 98.7 F Temperature 97.4 F Temperature 97.4 F Temperature 98.8 F - Labs CBC & Chem 7: 05/21/17 04:09 05/21/17 04:09 Labs: Abnormal lab results 05/21/17 05/21/17 05/21/17 Range/Units 12:35 16:35 21:35 POC Glucose 128 H 116 H 121 H (70-105) 05/22/17 Range/Units 06:18 POC Glucose 132 H (70-105)
--- NOTE | 2017-05-22 14:53 | Progress Note ---
Assessment and Plan Assessment and Plan Assessment and plan: -- septic shock; off Levophed, Reg floor with remote tele --Sepsis: MRSA pneumonia,on Zyvox, per ID , contact isolation --Leukocytosis; resolved ,f/u chest x-ray resolving infiltrates . --Type 2 diabetes mellitus; Accu-Chek sliding scale coverage ADA diet, and long- acting 70/30 insulin --Acute on chronic respiratory failure; secondary to fluid overload/MRSA pneumonia, BiPAP as needed --Metabolic encephalopathy on admission; s/p intubation --Poor oral nutrition ; nutrition supplements --Coronary artery disease s/p PCI : Stable --Cardiomyopathy ejection fraction of 40% 04/2016 --End-stage renal disease on hemodialysis, HD per schedule --Dyslipidemia; on lipid-lowering medications --DVT prophylaxis; SCD Cardiology, pulmonary, nephrology, ID following Physical therapy occupational therapy DC planning. Case management Disposition; titrate and DC Levophed, possible home with home health versus placement Plan medically stable Subjective Date of service: 05/22/17 Principal diagnosis: MRSA pneumonia, shock,sepsis,ESRD Interval history: Sitting on bed Objective - Constitutional Vitals: Vital Signs - 12hr 05/22/17 05/22/17 05/22/17 03:08 03:11 03:21 Temperature Pulse Rate 98 H 102 H 101 H Pulse Rate [ Posterior Bilateral Throughout] Respiratory 14 15 Rate Respiratory Rate [Posterior Bilateral Throughout] Blood Pressure 145/100 145/100 O2 Sat by Pulse 97 95 95 Oximetry 05/22/17 05/22/17 05/22/17 03:31 04:15 07:42 Temperature 98.7 F 97.3 F L Pulse Rate 90 86 84 Pulse Rate [ Posterior Bilateral Throughout] Respiratory 21 16 18 Rate Respiratory Rate [Posterior Bilateral Throughout] Blood Pressure 145/100 96/57 97/59 O2 Sat by Pulse 95 97 98 Oximetry 05/22/17 05/22/17 05/22/17 07:50 08:00 10:00 Temperature Pulse Rate Pulse Rate [ 84 85 Posterior Bilateral Throughout] Respiratory Rate Respiratory 18 18 Rate [Posterior Bilateral Throughout] Blood Pressure O2 Sat by Pulse 98 Oximetry 05/22/17 12:26 Temperature 97.5 F L Pulse Rate 87 Pulse Rate [ Posterior Bilateral Throughout] Respiratory 18 Rate Respiratory Rate [Posterior Bilateral Throughout] Blood Pressure 90/39 O2 Sat by Pulse 96 Oximetry General appearance: Present: no acute distress, well-nourished - EENT Eyes: PERRL, EOM intact ENT: hearing intact, clear oral mucosa Ears: bilateral: normal - Neck Neck: supple, normal ROM - Respiratory Respiratory effort: normal Respiratory: bilateral: CTA - Breasts Breasts: normal - Cardiovascular Heart rate: 80 Rhythm: regular Heart Sounds: Present: S1 & S2. Absent: gallop, rub Extremities: pulses intact, No edema, normal color, Full ROM - Gastrointestinal General gastrointestinal: Present: soft, non-tender, non-distended, normal bowel sounds - Genitourinary Female genitourinary: normal - Integumentary Integumentary: clear, warm, dry - Musculoskeletal Musculoskeletal: 1, strength equal bilaterally - Neurologic Neurologic: moves all extremities - Psychiatric Psychiatric: memory intact, appropriate mood/affect, intact judgment & insight - Labs CBC & Chem 7: 05/21/17 04:09 05/21/17 04:09 Labs: Abnormal lab results 05/21/17 05/21/17 05/22/17 Range/Units 16:35 21:35 06:18 POC Glucose 116 H 121 H 132 H (70-105) 05/22/17 Range/Units 11:52 POC Glucose 133 H (70-105)
--- NOTE | 2017-05-22 16:31 | Progress Note ---
Assessment and Plan - Patient Problems (1) Acute hypoxemic respiratory failure Current Visit: No Status: Acute Plan to address problem: As per pulmonology and primary team (2) ESRD (end stage renal disease) Current Visit: Yes Status: Chronic Plan to address problem: Status post Hemodialysis yesterday for UF and clearance, UF removed 1 liter No acute indication for HD today Assess need for HD on daily basis No labs today Repeat labs tomorrow On sensipar Currently on renvela 800 mg orally three times a day with meals - check phosphorus level in the morning Renally dose medications Obtain daily weight Strict intake and output Renal plan discussed with Dr Fuchs Continue supportive therapy (3) Diabetes mellitus Current Visit: Yes Status: Acute Plan to address problem: On insulin As per primary team (4) Hypotension Current Visit: Yes Status: Acute Plan to address problem: Continue midodrine for blood pressure support (5) Pneumonia Current Visit: No Status: Acute Qualifiers: Laterality: bilateral Plan to address problem: As per ID and pulmonology management Subjective Date of service: 05/22/17 Principal diagnosis: MRSA pneumonia, shock,sepsis,ESRD Interval history: Patient reports no complaints at this time. No family at bedside. Objective - Vital Signs Vital signs: Vital Signs - 12hr 05/22/17 05/22/17 05/22/17 07:42 07:50 08:00 Temperature 97.3 F L Pulse Rate 84 Pulse Rate [ 84 85 Posterior Bilateral Throughout] Respiratory 18 Rate Respiratory 18 18 Rate [Posterior Bilateral Throughout] Blood Pressure 97/59 O2 Sat by Pulse 98 Oximetry 05/22/17 05/22/17 05/22/17 10:00 12:26 14:40 Temperature 97.5 F L Pulse Rate 87 Pulse Rate [ 88 Posterior Bilateral Throughout] Respiratory 18 Rate Respiratory 18 Rate [Posterior Bilateral Throughout] Blood Pressure 90/39 O2 Sat by Pulse 98 96 Oximetry 05/22/17 14:56 Temperature Pulse Rate Pulse Rate [ 87 Posterior Bilateral Throughout] Respiratory Rate Respiratory 18 Rate [Posterior Bilateral Throughout] Blood Pressure O2 Sat by Pulse Oximetry - General Appearance General appearance: frail (no acute distress) EENT: ATNC Neck: no JVD Respiratory: Present: Other (Lung sounds decreased bilaterally, unlabored) Cardiology: regular, S1S2, other (ACCESS: Left AVF with positive thrill and bruit noted) Gastrointestinal: normoactive bowel sounds, no tenderness Integumentary: warm and dry (bruising to right arm with dressing in place) Neurologic: alert and oriented x3 Musculoskeletal: other (no edema to both lower extremities) Psychiatric: cooperative - Lab 05/21/17 04:09 05/21/17 04:09 Most recent lab results Calcium 8.2 mg/dL (8.4-10.2) L 05/21/17 04:09 Magnesium 2.20 mg/dL (1.7-2.3) 05/19/17 03:00
--- NOTE | 2017-05-22 17:44 | Progress Note ---
Assessment and Plan 56 y/o female with acute respiratory failure, most likely secondary to volume overload and altered mental status, exact etiology unknown, now with persistent hypotension of unknown etiology, now resolved. 1. Continue TID Midodrine 2. Continue supplemental O2, wean for sats >88%. Not sure if patient wears home o2 3. Bipap PRN 4. OOB to chair, PT/OT Subjective Date of service: 05/22/17 Principal diagnosis: MRSA pneumonia, shock,sepsis,ESRD Interval history: Patient seems to doing well. Denied any new complaints. Objective Vital Signs - 12hr 05/22/17 05/22/17 05/22/17 07:42 07:50 08:00 Temperature 97.3 F L Pulse Rate 84 Pulse Rate [ 84 85 Posterior Bilateral Throughout] Respiratory 18 Rate Respiratory 18 18 Rate [Posterior Bilateral Throughout] Blood Pressure 97/59 O2 Sat by Pulse 98 Oximetry 05/22/17 05/22/17 05/22/17 10:00 12:26 14:40 Temperature 97.5 F L Pulse Rate 87 Pulse Rate [ 88 Posterior Bilateral Throughout] Respiratory 18 Rate Respiratory 18 Rate [Posterior Bilateral Throughout] Blood Pressure 90/39 O2 Sat by Pulse 98 96 Oximetry 05/22/17 05/22/17 14:56 15:56 Temperature 97.7 F Pulse Rate 90 Pulse Rate [ 87 Posterior Bilateral Throughout] Respiratory 18 Rate Respiratory 18 Rate [Posterior Bilateral Throughout] Blood Pressure 96/60 O2 Sat by Pulse 85 Oximetry Constitutional: no acute distress, alert ENT: oropharynx moist Neck: supple Effort: normal Ascultation: Bilateral: clear, diminished breath sounds, wheezes (few expiratory bilaterally), rales, rhonchi (few bilaterally) Percussion: Bilateral: not dull Cardiovascular: regular rate and rhythm (no mrg) Gastrointestinal: normoactive bowel sounds, soft, non-tender Integumentary: other (Patsy left-sided face) Extremities: no cyanosis, no edema Neurologic: normal mental status, non-focal exam, pupils equal and round, CN II- XII normal, motor strength normal and Psychiatric: mood appropriate, affect normal CBC and BMP: 05/21/17 04:09 05/21/17 04:09 ABG, PT/INR, D-dimer: ABG POC ABG pH 7.450 (7.35-7.45) 05/12/17 13:10 POC ABG pCO2 36.7 (35-45) 05/12/17 13:10 POC ABG pO2 66 (80-105) L 05/12/17 13:10 POC ABG HCO3 25.5 05/12/17 13:10 POC ABG Total CO2 27 05/12/17 13:10 POC ABG O2 Sat 94 05/12/17 13:10 PT/INR, D-dimer PT 14.4 Sec. (12.2-14.9) 05/17/17 04:45 INR 1.06 (0.87-1.13) 05/17/17 04:45 Abnormal lab findings: Abnormal Labs 05/08/17 05/08/17 05/08/17 21:25 21:25 21:25 WBC RBC 2.55 L Hgb 8.9 L Hct 28.1 L MCV 111 H MCH 35 H RDW 25.4 H Lymph % (Auto) Harper % (Auto) Lymph # Harper # Baso # Seg Neutrophils % Seg Neuts % (Manual) 92.0 H Lymphocytes % (Manual) 6.0 L Monocytes % (Manual) Nucleated RBC % Seg Neutrophils # Seg Neutrophils # Man 9.3 H Lymphocytes # (Manual) 0.6 L Monocytes # (Manual) PT 15.2 H INR 1.14 H POC ABG pH POC ABG pCO2 POC ABG pO2 Sodium Potassium Chloride Carbon Dioxide BUN Creatinine Glucose POC Glucose Lactic Acid 2.50 H* Calcium AST ALT Alkaline Phosphatase Total Creatine Kinase CK-MB (CK-2) Rel Index Troponin T C-Reactive Protein Total Protein Albumin LDL Cholesterol Direct HDL Cholesterol Urine WBC (Auto) Salicylates Hepatitis C Antibody 05/08/17 05/08/17 05/08/17 21:35 22:04 22:42 WBC RBC Hgb Hct MCV MCH RDW Lymph % (Auto) Harper % (Auto) Lymph # Harper # Baso # Seg Neutrophils % Seg Neuts % (Manual) Lymphocytes % (Manual) Monocytes % (Manual) Nucleated RBC % Seg Neutrophils # Seg Neutrophils # Man Lymphocytes # (Manual) Monocytes # (Manual) PT INR POC ABG pH 7.271 L POC ABG pCO2 56.5 H POC ABG pO2 30 L Sodium Potassium Chloride 107.8 H Carbon Dioxide BUN 22 H Creatinine 2.6 H Glucose 202 H POC Glucose Lactic Acid Calcium 7.3 L AST ALT Alkaline Phosphatase 258 H Total Creatine Kinase CK-MB (CK-2) Rel Index Troponin T C-Reactive Protein Total Protein 5.2 L Albumin 2.9 L LDL Cholesterol Direct HDL Cholesterol Urine WBC (Auto) Salicylates < 0.3 L Hepatitis C Antibody 05/08/17 05/09/17 05/09/17 Unknown 00:24 06:00 WBC RBC Hgb Hct MCV MCH RDW Lymph % (Auto) Harper % (Auto) Lymph # Harper # Baso # Seg Neutrophils % Seg Neuts % (Manual) Lymphocytes % (Manual) Monocytes % (Manual) Nucleated RBC % Seg Neutrophils # Seg Neutrophils # Man Lymphocytes # (Manual) Monocytes # (Manual) PT INR POC ABG pH 7.283 L POC ABG pCO2 49.9 H POC ABG pO2 249 H Sodium Potassium Chloride Carbon Dioxide BUN Creatinine Glucose POC Glucose Lactic Acid Calcium AST ALT Alkaline Phosphatase Total Creatine Kinase 19 L CK-MB (CK-2) Rel Index 11.0 H Troponin T 0.612 H* C-Reactive Protein Total Protein Albumin LDL Cholesterol Direct 21 L HDL Cholesterol 27 L Urine WBC (Auto) 16.0 H Salicylates Hepatitis C Antibody 05/09/17 05/09/17 05/09/17 06:00 06:00 08:52 WBC 11.7 H RBC 2.67 L Hgb 9.3 L Hct 30.0 L MCV 112 H MCH 35 H RDW 24.4 H Lymph % (Auto) Harper % (Auto) Lymph # Harper # Baso # Seg Neutrophils % Seg Neuts % (Manual) Lymphocytes % (Manual) Monocytes % (Manual) Nucleated RBC % Seg Neutrophils # Seg Neutrophils # Man Lymphocytes # (Manual) Monocytes # (Manual) PT INR POC ABG pH 7.323 L POC ABG pCO2 POC ABG pO2 143 H Sodium Potassium Chloride Carbon Dioxide BUN 24 H Creatinine 2.9 H Glucose 172 H POC Glucose Lactic Acid Calcium 7.7 L AST ALT Alkaline Phosphatase Total Creatine Kinase CK-MB (CK-2) Rel Index Troponin T C-Reactive Protein Total Protein Albumin LDL Cholesterol Direct HDL Cholesterol Urine WBC (Auto) Salicylates Hepatitis C Antibody 05/09/17 05/09/17 05/11/17 14:00 17:00 06:09 WBC 11.4 H RBC 2.66 L Hgb 9.1 L Hct 29.3 L MCV 110 H MCH 34 H RDW 23.1 H Lymph % (Auto) 4.2 L Harper % (Auto) 12.7 H Lymph # 0.5 L Harper # 1.4 H Baso # Seg Neutrophils % 82.5 H Seg Neuts % (Manual) Lymphocytes % (Manual) Monocytes % (Manual) Nucleated RBC % Seg Neutrophils # 9.4 H Seg Neutrophils # Man Lymphocytes # (Manual) Monocytes # (Manual) PT INR POC ABG pH POC ABG pCO2 POC ABG pO2 Sodium Potassium Chloride Carbon Dioxide BUN Creatinine Glucose POC Glucose Lactic Acid Calcium AST ALT Alkaline Phosphatase Total Creatine Kinase 24 L CK-MB (CK-2) Rel Index 9.1 H Troponin T 0.654 H* C-Reactive Protein Total Protein Albumin LDL Cholesterol Direct HDL Cholesterol Urine WBC (Auto) Salicylates Hepatitis C Antibody Reactive A 05/11/17 05/11/17 05/11/17 06:09 08:20 11:34 WBC RBC Hgb Hct MCV MCH RDW Lymph % (Auto) Harper % (Auto) Lymph # Harper # Baso # Seg Neutrophils % Seg Neuts % (Manual) Lymphocytes % (Manual) Monocytes % (Manual) Nucleated RBC % Seg Neutrophils # Seg Neutrophils # Man Lymphocytes # (Manual) Monocytes # (Manual) PT INR POC ABG pH POC ABG pCO2 POC ABG pO2 Sodium Potassium Chloride 95.6 L Carbon Dioxide 20 L BUN 24 H Creatinine 3.4 H Glucose 134 H POC Glucose 154 H 149 H Lactic Acid Calcium AST ALT Alkaline Phosphatase Total Creatine Kinase CK-MB (CK-2) Rel Index Troponin T C-Reactive Protein Total Protein Albumin LDL Cholesterol Direct HDL Cholesterol Urine WBC (Auto) Salicylates Hepatitis C Antibody 05/11/17 05/11/17 05/11/17 15:30 16:27 21:58 WBC RBC Hgb Hct MCV MCH RDW Lymph % (Auto) Harper % (Auto) Lymph # Harper # Baso # Seg Neutrophils % Seg Neuts % (Manual) Lymphocytes % (Manual) Monocytes % (Manual) Nucleated RBC % Seg Neutrophils # Seg Neutrophils # Man Lymphocytes # (Manual) Monocytes # (Manual) PT INR POC ABG pH POC ABG pCO2 POC ABG pO2 Sodium Potassium Chloride Carbon Dioxide BUN Creatinine Glucose POC Glucose 163 H 199 H Lactic Acid Calcium AST ALT Alkaline Phosphatase Total Creatine Kinase CK-MB (CK-2) Rel Index Troponin T C-Reactive Protein 44.70 H Total Protein Albumin LDL Cholesterol Direct HDL Cholesterol Urine WBC (Auto) Salicylates Hepatitis C Antibody 05/12/17 05/12/17 05/12/17 08:42 13:10 14:10 WBC RBC Hgb Hct MCV MCH RDW Lymph % (Auto) Harper % (Auto) Lymph # Harper # Baso # Seg Neutrophils % Seg Neuts % (Manual) Lymphocytes % (Manual) Monocytes % (Manual) Nucleated RBC % Seg Neutrophils # Seg Neutrophils # Man Lymphocytes # (Manual) Monocytes # (Manual) PT INR POC ABG pH POC ABG pCO2 POC ABG pO2 66 L Sodium Potassium Chloride Carbon Dioxide BUN Creatinine Glucose POC Glucose 190 H 162 H Lactic Acid Calcium AST ALT Alkaline Phosphatase Total Creatine Kinase CK-MB (CK-2) Rel Index Troponin T C-Reactive Protein Total Protein Albumin LDL Cholesterol Direct HDL Cholesterol Urine WBC (Auto) Salicylates Hepatitis C Antibody 05/12/17 05/12/17 05/12/17 15:46 16:05 21:42 WBC RBC Hgb Hct MCV MCH RDW Lymph % (Auto) Harper % (Auto) Lymph # Harper # Baso # Seg Neutrophils % Seg Neuts % (Manual) Lymphocytes % (Manual) Monocytes % (Manual) Nucleated RBC % Seg Neutrophils # Seg Neutrophils # Man Lymphocytes # (Manual) Monocytes # (Manual) PT INR POC ABG pH POC ABG pCO2 POC ABG pO2 Sodium Potassium Chloride Carbon Dioxide BUN Creatinine Glucose POC Glucose 153 H 153 H Lactic Acid 2.60 H* Calcium AST ALT Alkaline Phosphatase Total Creatine Kinase CK-MB (CK-2) Rel Index Troponin T C-Reactive Protein Total Protein Albumin LDL Cholesterol Direct HDL Cholesterol Urine WBC (Auto) Salicylates Hepatitis C Antibody 05/13/17 05/13/17 05/13/17 05:12 05:30 05:30 WBC 22.0 H RBC 3.02 L Hgb 9.9 L Hct MCV 105 H MCH 33 H RDW 22.9 H Lymph % (Auto) Harper % (Auto) Lymph # Harper # Baso # Seg Neutrophils % Seg Neuts % (Manual) 89.0 H Lymphocytes % (Manual) 6.0 L Monocytes % (Manual) Nucleated RBC % 1.0 H Seg Neutrophils # Seg Neutrophils # Man 19.6 H Lymphocytes # (Manual) Monocytes # (Manual) 0.9 H PT INR POC ABG pH POC ABG pCO2 POC ABG pO2 Sodium Potassium Chloride 90.8 L Carbon Dioxide 21 L BUN 28 H Creatinine 3.1 H Glucose 172 H POC Glucose 182 H Lactic Acid Calcium AST ALT Alkaline Phosphatase Total Creatine Kinase CK-MB (CK-2) Rel Index Troponin T C-Reactive Protein Total Protein Albumin LDL Cholesterol Direct HDL Cholesterol Urine WBC (Auto) Salicylates Hepatitis C Antibody 05/13/17 05/13/17 05/13/17 11:52 18:01 23:31 WBC RBC Hgb Hct MCV MCH RDW Lymph % (Auto) Harper % (Auto) Lymph # Harper # Baso # Seg Neutrophils % Seg Neuts % (Manual) Lymphocytes % (Manual) Monocytes % (Manual) Nucleated RBC % Seg Neutrophils # Seg Neutrophils # Man Lymphocytes # (Manual) Monocytes # (Manual) PT INR POC ABG pH POC ABG pCO2 POC ABG pO2 Sodium Potassium Chloride Carbon Dioxide BUN Creatinine Glucose POC Glucose 185 H 216 H 281 H Lactic Acid Calcium AST ALT Alkaline Phosphatase Total Creatine Kinase CK-MB (CK-2) Rel Index Troponin T C-Reactive Protein Total Protein Albumin LDL Cholesterol Direct HDL Cholesterol Urine WBC (Auto) Salicylates Hepatitis C Antibody 05/14/17 05/14/17 05/14/17 05:43 06:10 06:10 WBC 19.6 H RBC 3.61 L Hgb Hct MCV 104 H MCH 34 H RDW 23.4 H Lymph % (Auto) 8.6 L Harper % (Auto) Lymph # Harper # 1.3 H Baso # 0.2 H Seg Neutrophils % 82.5 H Seg Neuts % (Manual) Lymphocytes % (Manual) Monocytes % (Manual) Nucleated RBC % Seg Neutrophils # 16.2 H Seg Neutrophils # Man Lymphocytes # (Manual) Monocytes # (Manual) PT INR POC ABG pH POC ABG pCO2 POC ABG pO2 Sodium Potassium 3.4 L Chloride 89.1 L Carbon Dioxide BUN 32 H Creatinine 3.0 H Glucose 224 H POC Glucose 215 H Lactic Acid Calcium AST 85 H ALT 162 H Alkaline Phosphatase 347 H Total Creatine Kinase CK-MB (CK-2) Rel Index Troponin T C-Reactive Protein Total Protein 8.5 H Albumin LDL Cholesterol Direct HDL Cholesterol Urine WBC (Auto) Salicylates Hepatitis C Antibody 05/14/17 05/14/17 05/14/17 08:32 11:26 16:42 WBC RBC Hgb Hct MCV MCH RDW Lymph % (Auto) Harper % (Auto) Lymph # Harper # Baso # Seg Neutrophils % Seg Neuts % (Manual) Lymphocytes % (Manual) Monocytes % (Manual) Nucleated RBC % Seg Neutrophils # Seg Neutrophils # Man Lymphocytes # (Manual) Monocytes # (Manual) PT INR POC ABG pH POC ABG pCO2 POC ABG pO2 Sodium Potassium Chloride Carbon Dioxide BUN Creatinine Glucose POC Glucose 204 H 182 H 310 H Lactic Acid Calcium AST ALT Alkaline Phosphatase Total Creatine Kinase CK-MB (CK-2) Rel Index Troponin T C-Reactive Protein Total Protein Albumin LDL Cholesterol Direct HDL Cholesterol Urine WBC (Auto) Salicylates Hepatitis C Antibody 05/14/17 05/15/17 05/15/17 23:00 03:45 03:45 WBC 18.3 H RBC 3.42 L Hgb Hct MCV 105 H MCH 34 H RDW 23.0 H Lymph % (Auto) 10.4 L Harper % (Auto) 7.7 H Lymph # Harper # 1.4 H Baso # Seg Neutrophils % 79.5 H Seg Neuts % (Manual) Lymphocytes % (Manual) Monocytes % (Manual) Nucleated RBC % Seg Neutrophils # 14.6 H Seg Neutrophils # Man Lymphocytes # (Manual) Monocytes # (Manual) PT INR POC ABG pH POC ABG pCO2 POC ABG pO2 Sodium 132 L Potassium Chloride 88.4 L Carbon Dioxide BUN 29 H Creatinine 2.8 H Glucose 310 H POC Glucose 264 H Lactic Acid Calcium AST 54 H ALT 111 H Alkaline Phosphatase 318 H Total Creatine Kinase CK-MB (CK-2) Rel Index Troponin T C-Reactive Protein Total Protein Albumin 3.7 L LDL Cholesterol Direct HDL Cholesterol Urine WBC (Auto) Salicylates Hepatitis C Antibody 05/15/17 05/15/17 05/15/17 07:36 12:14 12:15 WBC RBC Hgb Hct MCV MCH RDW Lymph % (Auto) Harper % (Auto) Lymph # Harper # Baso # Seg Neutrophils % Seg Neuts % (Manual) Lymphocytes % (Manual) Monocytes % (Manual) Nucleated RBC % Seg Neutrophils # Seg Neutrophils # Man Lymphocytes # (Manual) Monocytes # (Manual) PT INR POC ABG pH POC ABG pCO2 POC ABG pO2 Sodium Potassium Chloride Carbon Dioxide BUN Creatinine Glucose POC Glucose 253 H > 500 H Lactic Acid Calcium AST ALT Alkaline Phosphatase Total Creatine Kinase CK-MB (CK-2) Rel Index Troponin T C-Reactive Protein 14.70 H Total Protein Albumin LDL Cholesterol Direct HDL Cholesterol Urine WBC (Auto) Salicylates Hepatitis C Antibody 05/15/17 05/15/1705/15/17 12:15 15:43 22:26 WBC RBC Hgb Hct MCV MCH RDW Lymph % (Auto) Harper % (Auto) Lymph # Harper # Baso # Seg Neutrophils % Seg Neuts % (Manual) Lymphocytes % (Manual) Monocytes % (Manual) Nucleated RBC % Seg Neutrophils # Seg Neutrophils # Man Lymphocytes # (Manual) Monocytes # (Manual) PT INR POC ABG pH POC ABG pCO2 POC ABG pO2 Sodium Potassium Chloride Carbon Dioxide BUN Creatinine Glucose 336 H POC Glucose 288 H 243 H Lactic Acid Calcium AST ALT Alkaline Phosphatase Total Creatine Kinase CK-MB (CK-2) Rel Index Troponin T C-Reactive Protein Total Protein Albumin LDL Cholesterol Direct HDL Cholesterol Urine WBC (Auto) Salicylates Hepatitis C Antibody 05/16/17 05/16/17 05/16/17 04:00 04:00 07:26 WBC 23.5 H RBC 3.25 L Hgb Hct MCV 106 H MCH 33 H RDW 23.2 H Lymph % (Auto) Harper % (Auto) Lymph # Harper # Baso # Seg Neutrophils % Seg Neuts % (Manual) Lymphocytes % (Manual) 9.0 L Monocytes % (Manual) 14.0 H Nucleated RBC % Seg Neutrophils # Seg Neutrophils # Man 15.3 H Lymphocytes # (Manual) Monocytes # (Manual) 3.3 H PT INR POC ABG pH POC ABG pCO2 POC ABG pO2 Sodium Potassium Chloride 91.5 L Carbon Dioxide BUN 48 H Creatinine 4.5 H D Glucose POC Glucose 107 H Lactic Acid Calcium AST ALT Alkaline Phosphatase Total Creatine Kinase CK-MB (CK-2) Rel Index Troponin T C-Reactive Protein Total Protein Albumin LDL Cholesterol Direct HDL Cholesterol Urine WBC (Auto) Salicylates Hepatitis C Antibody 05/16/17 05/16/17 05/16/17 11:57 17:14 21:30 WBC RBC Hgb Hct MCV MCH RDW Lymph % (Auto) Harper % (Auto) Lymph # Harper # Baso # Seg Neutrophils % Seg Neuts % (Manual) Lymphocytes % (Manual) Monocytes % (Manual) Nucleated RBC % Seg Neutrophils # Seg Neutrophils # Man Lymphocytes # (Manual) Monocytes # (Manual) PT INR POC ABG pH POC ABG pCO2 POC ABG pO2 Sodium Potassium Chloride Carbon Dioxide BUN Creatinine Glucose POC Glucose 190 H 200 H 152 H Lactic Acid Calcium AST ALT Alkaline Phosphatase Total Creatine Kinase CK-MB (CK-2) Rel Index Troponin T C-Reactive Protein Total Protein Albumin LDL Cholesterol Direct HDL Cholesterol Urine WBC (Auto) Salicylates Hepatitis C Antibody 05/17/17 05/17/17 05/17/17 04:45 04:45 08:20 WBC 16.7 H RBC 3.08 L Hgb Hct MCV 106 H MCH 33 H RDW 23.3 H Lymph % (Auto) 3.8 L Harper % (Auto) Lymph # 0.6 L Harper # 1.1 H Baso # 0.2 H Seg Neutrophils % 87.5 H Seg Neuts % (Manual) Lymphocytes % (Manual) Monocytes % (Manual) Nucleated RBC % Seg Neutrophils # 14.6 H Seg Neutrophils # Man Lymphocytes # (Manual) Monocytes # (Manual) PT INR POC ABG pH POC ABG pCO2 POC ABG pO2 Sodium 134 L Potassium Chloride 89.3 L Carbon Dioxide 21 L BUN 60 H Creatinine 6.1 H Glucose POC Glucose 107 H Lactic Acid Calcium AST ALT Alkaline Phosphatase 226 H Total Creatine Kinase CK-MB (CK-2) Rel Index Troponin T C-Reactive Protein Total Protein Albumin 3.5 L LDL Cholesterol Direct HDL Cholesterol Urine WBC (Auto) Salicylates Hepatitis C Antibody 05/17/17 05/17/17 05/17/17 11:24 16:24 21:34 WBC RBC Hgb Hct MCV MCH RDW Lymph % (Auto) Harper % (Auto) Lymph # Harper # Baso # Seg Neutrophils % Seg Neuts % (Manual) Lymphocytes % (Manual) Monocytes % (Manual) Nucleated RBC % Seg Neutrophils # Seg Neutrophils # Man Lymphocytes # (Manual) Monocytes # (Manual) PT INR POC ABG pH POC ABG pCO2 POC ABG pO2 Sodium Potassium Chloride Carbon Dioxide BUN Creatinine Glucose POC Glucose 172 H 116 H 182 H Lactic Acid Calcium AST ALT Alkaline Phosphatase Total Creatine Kinase CK-MB (CK-2) Rel Index Troponin T C-Reactive Protein Total Protein Albumin LDL Cholesterol Direct HDL Cholesterol Urine WBC (Auto) Salicylates Hepatitis C Antibody 05/18/17 05/18/17 05/18/17 05:06 08:01 11:32 WBC RBC Hgb Hct MCV MCH RDW Lymph % (Auto) Harper % (Auto) Lymph # Harper # Baso # Seg Neutrophils % Seg Neuts % (Manual) Lymphocytes % (Manual) Monocytes % (Manual) Nucleated RBC % Seg Neutrophils # Seg Neutrophils # Man Lymphocytes # (Manual) Monocytes # (Manual) PT INR POC ABG pH POC ABG pCO2 POC ABG pO2 Sodium Potassium Chloride Carbon Dioxide BUN Creatinine Glucose POC Glucose 153 H 145 H 247 H Lactic Acid Calcium AST ALT Alkaline Phosphatase Total Creatine Kinase CK-MB (CK-2) Rel Index Troponin T C-Reactive Protein Total Protein Albumin LDL Cholesterol Direct HDL Cholesterol Urine WBC (Auto) Salicylates Hepatitis C Antibody 05/18/17 05/18/17 05/19/17 16:09 22:17 03:00 WBC RBC 2.88 L Hgb 9.8 L Hct 30.2 L MCV 105 H MCH 34 H RDW 23.6 H Lymph % (Auto) 7.1 L Harper % (Auto) Lymph # 0.5 L Harper # Baso # Seg Neutrophils % 86.5 H Seg Neuts % (Manual) Lymphocytes % (Manual) Monocytes % (Manual) Nucleated RBC % Seg Neutrophils # Seg Neutrophils # Man Lymphocytes # (Manual) Monocytes # (Manual) PT INR POC ABG pH POC ABG pCO2 POC ABG pO2 Sodium Potassium Chloride Carbon Dioxide BUN Creatinine Glucose POC Glucose 237 H 162 H Lactic Acid Calcium AST ALT Alkaline Phosphatase Total Creatine Kinase CK-MB (CK-2) Rel Index Troponin T C-Reactive Protein Total Protein Albumin LDL Cholesterol Direct HDL Cholesterol Urine WBC (Auto) Salicylates Hepatitis C Antibody 05/19/17 05/19/17 05/19/17 03:00 07:19 21:30 WBC RBC Hgb Hct MCV MCH RDW Lymph % (Auto) Harper % (Auto) Lymph # Harper # Baso # Seg Neutrophils % Seg Neuts % (Manual) Lymphocytes % (Manual) Monocytes % (Manual) Nucleated RBC % Seg Neutrophils # Seg Neutrophils # Man Lymphocytes # (Manual) Monocytes # (Manual) PT INR POC ABG pH POC ABG pCO2 POC ABG pO2 Sodium 136 L Potassium Chloride 90.1 L Carbon Dioxide BUN 49 H Creatinine 4.8 H Glucose 126 H POC Glucose 128 H 145 H Lactic Acid Calcium AST ALT Alkaline Phosphatase Total Creatine Kinase CK-MB (CK-2) Rel Index Troponin T C-Reactive Protein Total Protein Albumin LDL Cholesterol Direct HDL Cholesterol Urine WBC (Auto) Salicylates Hepatitis C Antibody 05/20/17 05/20/17 05/20/17 05:00 05:00 07:34 WBC RBC 3.12 L Hgb Hct MCV 106 H MCH 33 H RDW 23.7 H Lymph % (Auto) Harper % (Auto) Lymph # Harper # Baso # Seg Neutrophils % Seg Neuts % (Manual) 93.0 H Lymphocytes % (Manual) 3.0 L Monocytes % (Manual) Nucleated RBC % Seg Neutrophils # Seg Neutrophils # Man 9.8 H Lymphocytes # (Manual) 0.3 L Monocytes # (Manual) PT INR POC ABG pH POC ABG pCO2 POC ABG pO2 Sodium Potassium Chloride 95.5 L Carbon Dioxide BUN 29 H Creatinine 2.9 H Glucose 167 H POC Glucose 182 H Lactic Acid Calcium AST ALT Alkaline Phosphatase 195 H Total Creatine Kinase CK-MB (CK-2) Rel Index Troponin T C-Reactive Protein Total Protein Albumin 3.6 L LDL Cholesterol Direct HDL Cholesterol Urine WBC (Auto) Salicylates Hepatitis C Antibody 05/20/17 05/20/17 05/20/17 11:33 15:52 22:59 WBC RBC Hgb Hct MCV MCH RDW Lymph % (Auto) Harper % (Auto) Lymph # Harper # Baso # Seg Neutrophils % Seg Neuts % (Manual) Lymphocytes % (Manual) Monocytes % (Manual) Nucleated RBC % Seg Neutrophils # Seg Neutrophils # Man Lymphocytes # (Manual) Monocytes # (Manual) PT INR POC ABG pH POC ABG pCO2 POC ABG pO2 Sodium Potassium Chloride Carbon Dioxide BUN Creatinine Glucose POC Glucose 206 H 164 H 121 H Lactic Acid Calcium AST ALT Alkaline Phosphatase Total Creatine Kinase CK-MB (CK-2) Rel Index Troponin T C-Reactive Protein Total Protein Albumin LDL Cholesterol Direct HDL Cholesterol Urine WBC (Auto) Salicylates Hepatitis C Antibody 05/21/17 05/21/17 05/21/17 04:09 04:09 12:35 WBC 13.8 H RBC 3.32 L Hgb Hct MCV 106 H MCH 34 H RDW 23.7 H Lymph % (Auto) 8.3 L Harper % (Auto) Lymph # 1.1 L Harper # Baso # Seg Neutrophils % 87.2 H Seg Neuts % (Manual) Lymphocytes % (Manual) Monocytes % (Manual) Nucleated RBC % Seg Neutrophils # 12.0 H Seg Neutrophils # Man Lymphocytes # (Manual) Monocytes # (Manual) PT INR POC ABG pH POC ABG pCO2 POC ABG pO2 Sodium Potassium Chloride 90.6 L Carbon Dioxide BUN 59 H Creatinine 4.1 H Glucose 112 H POC Glucose 128 H Lactic Acid Calcium 8.2 L AST ALT Alkaline Phosphatase 191 H Total Creatine Kinase CK-MB (CK-2) Rel Index Troponin T C-Reactive Protein Total Protein Albumin 3.7 L LDL Cholesterol Direct HDL Cholesterol Urine WBC (Auto) Salicylates Hepatitis C Antibody 05/21/17 05/21/17 05/22/17 16:35 21:35 06:18 WBC RBC Hgb Hct MCV MCH RDW Lymph % (Auto) Harper % (Auto) Lymph # Harper # Baso # Seg Neutrophils % Seg Neuts % (Manual) Lymphocytes % (Manual) Monocytes % (Manual) Nucleated RBC % Seg Neutrophils # Seg Neutrophils # Man Lymphocytes # (Manual) Monocytes # (Manual) PT INR POC ABG pH POC ABG pCO2 POC ABG pO2 Sodium Potassium Chloride Carbon Dioxide BUN Creatinine Glucose POC Glucose 116 H 121 H 132 H Lactic Acid Calcium AST ALT Alkaline Phosphatase Total Creatine Kinase CK-MB (CK-2) Rel Index Troponin T C-Reactive Protein Total Protein Albumin LDL Cholesterol Direct HDL Cholesterol Urine WBC (Auto) Salicylates Hepatitis C Antibody 05/22/17 11:52 WBC RBC Hgb Hct MCV MCH RDW Lymph % (Auto) Harper % (Auto) Lymph # Harper # Baso # Seg Neutrophils % Seg Neuts % (Manual) Lymphocytes % (Manual) Monocytes % (Manual) Nucleated RBC % Seg Neutrophils # Seg Neutrophils # Man Lymphocytes # (Manual) Monocytes # (Manual) PT INR POC ABG pH POC ABG pCO2 POC ABG pO2 Sodium Potassium Chloride Carbon Dioxide BUN Creatinine Glucose POC Glucose 133 H Lactic Acid Calcium AST ALT Alkaline Phosphatase Total Creatine Kinase CK-MB (CK-2) Rel Index Troponin T C-Reactive Protein Total Protein Albumin LDL Cholesterol Direct HDL Cholesterol Urine WBC (Auto) Salicylates Hepatitis C Antibody
[2017-05-23] MEDS: PROVENTIL IH SCH ×5 (00:36→20:26)
[2017-05-23] MEDS: PROAMATINE PO SCH ×3 (03:33→22:02)
[2017-05-23] MEDS: NEURONTIN PO SCH ×3 (06:07→21:57)
[2017-05-23 06:52] LABS: Hematocrit 37.1 % (30.3-42.9); Hemoglobin 11.4 gm/dl (10.1-14.3); Mean Corpuscular HGB Conc 31 % (30-34); Mean Corpuscular Hemoglobin 33 pg (28-32); Mean Corpuscular Volume 106 fl (79-97); Platelet Count 307 K/mm3 (140-440); Red Blood Count 3.49 M/mm3 (3.65-5.03)
[2017-05-23 06:59] LABS: Red Cell Distribution Width 23.1 % (13.2-15.2)
[2017-05-23 07:08] LABS: Calcium 8.5 mg/dL (8.4-10.2)
[2017-05-23] MEDS: NOVOLOG SUB-Q SCH ×4 (07:40→23:00)
--- NOTE | 2017-05-23 08:53 | Progress Note ---
Assessment and Plan Assessment and plan: --Sepsis: MRSA pneumonia,on Zyvox, per ID , contact isolation. tracheal aspirate positive for MRSA. Follow-up chest x-ray improved. Continue Midodrine 3 times a day --Leukocytosis; resolved . --Type 2 diabetes mellitus; Accu-Chek sliding scale coverage ADA diet, and long- acting 70/30 insulin --Acute on chronic respiratory failure; secondary to fluid overload/MRSA pneumonia, BiPAP as needed --Metabolic encephalopathy on admission; s/p intubation --Poor oral nutrition ; nutrition supplements --Coronary artery disease s/p PCI : Stable --Cardiomyopathy ejection fraction of 40% 04/2016 --End-stage renal disease on hemodialysis, HD per schedule --Dyslipidemia; on lipid-lowering medications --DVT prophylaxis; SCD Cardiology, pulmonary, nephrology, ID following Physical therapy occupational therapy DC planning. Case management History Interval history: no new issues overnight. Patient appears confused and lethargic Hospitalist Physical - Constitutional Vitals: Temp Pulse Resp BP Pulse Ox 97.3 F L 80 50 H 102/60 99 05/23/17 07:47 05/23/17 07:47 05/23/17 07:47 05/23/17 07:47 05/23/17 07:47 General appearance: Present: mild distress, well-nourished - EENT Eyes: Present: PERRL, EOM intact ENT: hearing intact, clear oral mucosa, dentition normal - Neck Neck: Present: supple, normal ROM - Respiratory Respiratory effort: normal Respiratory: bilateral: CTA - Cardiovascular Rhythm: regular Heart Sounds: Present: S1 & S2. Absent: gallop, rub - Extremities Extremities: no ischemia, No edema, Full ROM - Abdominal General gastrointestinal: soft, non-tender, non-distended, normal bowel sounds - Integumentary Integumentary: Present: clear, warm, dry - Neurologic Neurologic: CNII-XII intact, moves all extremities Results - Labs CBC & Chem 7: 05/23/17 05:53 05/23/17 05:53 Labs: Laboratory Last Values WBC 22.5 K/mm3 (4.5-11.0) H 05/23/17 05:53 RBC 3.49 M/mm3 (3.65-5.03) L 05/23/17 05:53 Hgb 11.4 gm/dl (10.1-14.3) 05/23/17 05:53 Hct 37.1 % (30.3-42.9) 05/23/17 05:53 MCV 106 fl (79-97) H 05/23/17 05:53 MCH 33 pg (28-32) H 05/23/17 05:53 MCHC 31 % (30-34) 05/23/17 05:53 RDW 23.1 % (13.2-15.2) H 05/23/17 05:53 Plt Count 307 K/mm3 (140-440) 05/23/17 05:53 Lymph % (Auto) 8.3 % (13.4-35.0) L 05/21/17 04:09 [place] % (Auto) 4.4 % (0.0-7.3) 05/21/17 04:09 Eos % (Auto) 0.0 % (0.0-4.3) 05/21/17 04:09 Baso % (Auto) 0.1 % (0.0-1.8) 05/21/17 04:09 Lymph # 1.1 K/mm3 (1.2-5.4) L 05/21/17 04:09 [place] # 0.6 K/mm3 (0.0-0.8) 05/21/17 04:09 Eos # 0.0 K/mm3 (0.0-0.4) 05/21/17 04:09 Baso # 0.0 K/mm3 (0.0-0.1) 05/21/17 04:09 Add Manual Diff Complete 05/20/17 05:00 Total Counted 100 05/20/17 05:00 Seg Neutrophils % 87.2 % (40.0-70.0) H 05/21/17 04:09 Seg Neuts % (Manual) 93.0 % (40.0-70.0) H 05/20/17 05:00 Band Neutrophils % 1.0 % 05/20/17 05:00 Lymphocytes % (Manual) 3.0 % (13.4-35.0) L 05/20/17 05:00 Reactive Lymphs % (Man) 0 % 05/20/17 05:00 Monocytes % (Manual) 3.0 % (0.0-7.3) 05/20/17 05:00 Eosinophils % (Manual) 0 % (0.0-4.3) 05/20/17 05:00 Basophils % (Manual) 0 % (0.0-1.8) 05/20/17 05:00 Metamyelocytes % 0 % 05/20/17 05:00 Myelocytes % 0 % 05/20/17 05:00 Promyelocytes % 0 % 05/20/17 05:00 Blast Cells % 0 % 05/20/17 05:00 Nucleated RBC % Not Reportable 05/20/17 05:00 Seg Neutrophils # 12.0 K/mm3 (1.8-7.7) H 05/21/17 04:09 Seg Neutrophils # Man 9.8 K/mm3 (1.8-7.7) H 05/20/17 05:00 Band Neutrophils # 0.1 K/mm3 05/20/17 05:00 Lymphocytes # (Manual) 0.3 K/mm3 (1.2-5.4) L 05/20/17 05:00 Abs React Lymphs (Man) 0.0 K/mm3 05/20/17 05:00 Monocytes # (Manual) 0.3 K/mm3 (0.0-0.8) 05/20/17 05:00 Eosinophils # (Manual) 0.0 K/mm3 (0.0-0.4) 05/20/17 05:00 Basophils # (Manual) 0.0 K/mm3 (0.0-0.1) 05/20/17 05:00 Metamyelocytes # 0.0 K/mm3 05/20/17 05:00 Myelocytes # 0.0 K/mm3 05/20/17 05:00 Promyelocytes # 0.0 K/mm3 05/20/17 05:00 Blast Cells # 0.0 K/mm3 05/20/17 05:00 WBC Morphology Not Reportable 05/20/17 05:00 Hypersegmented Neuts Not Reportable 05/20/17 05:00 Hyposegmented Neuts Not Reportable 05/20/17 05:00 Hypogranular Neuts Not Reportable 05/20/17 05:00 Smudge Cells Not Reportable 05/20/17 05:00 Toxic Granulation Not Reportable 05/20/17 05:00 Toxic Vacuolation Not Reportable 05/20/17 05:00 Dohle Bodies Not Reportable 05/20/17 05:00 Pelger-Huet Anomaly Not Reportable 05/20/17 05:00 Anthony Rods Not Reportable 05/20/17 05:00 Platelet Estimate Appears normal 05/20/17 05:00 Clumped Platelets Not Reportable 05/20/17 05:00 Plt Clumps, EDTA Not Reportable 05/20/17 05:00 Large Platelets Not Reportable 05/20/17 05:00 Giant Platelets Not Reportable 05/20/17 05:00 Platelet Satelliting Not Reportable 05/20/17 05:00 Plt Morphology Comment Not Reportable 05/20/17 05:00 RBC Morphology Not Reportable 05/20/17 05:00 Dimorphic RBCs Not Reportable 05/20/17 05:00 Polychromasia Few 05/20/17 05:00 Hypochromasia Not Reportable 05/20/17 05:00 Poikilocytosis Not Reportable 05/20/17 05:00 Anisocytosis 1+ 05/20/17 05:00 Microcytosis Not Reportable 05/20/17 05:00 Macrocytosis 1+ 05/20/17 05:00 Spherocytes Not Reportable 05/20/17 05:00 Pappenheimer Bodies Not Reportable 05/20/17 05:00 Sickle Cells Not Reportable 05/20/17 05:00 Target Cells Rare 05/20/17 05:00 Tear Drop Cells 1+ 05/20/17 05:00 Ovalocytes 1+ 05/20/17 05:00 Stomatocytes Few 05/20/17 05:00 Helmet Cells Not Reportable 05/20/17 05:00 [place] Bodies Not Reportable 05/20/17 05:00 Kim Rings Not Reportable 05/20/17 05:00 Anthony Cells Not Reportable 05/20/17 05:00 Bite Cells Not Reportable 05/20/17 05:00 Crenated Cell Not Reportable 05/20/17 05:00 Elliptocytes Rare 05/20/17 05:00 Acanthocytes (Spur) Not Reportable 05/20/17 05:00 Rouleaux Not Reportable 05/20/17 05:00 Hemoglobin C Crystals Not Reportable 05/20/17 05:00 Schistocytes Not Reportable 05/20/17 05:00 Malaria parasites Not Reportable 05/20/17 05:00 Jose Bodies Not Reportable 05/20/17 05:00 Hem Pathologist Commnt No 05/20/17 05:00 PT 14.4 Sec. (12.2-14.9) 05/17/17 04:45 INR 1.06 (0.87-1.13) 05/17/17 04:45 APTT 27.5 Sec. (24.2-36.6) 05/17/17 04:45 POC ABG pH 7.450 (7.35-7.45) 05/12/17 13:10 POC ABG pCO2 36.7 (35-45) 05/12/17 13:10 POC ABG pO2 66 (80-105) L 05/12/17 13:10 POC ABG HCO3 25.5 05/12/17 13:10 POC ABG Total CO2 27 05/12/17 13:10 POC ABG O2 Sat 94 05/12/17 13:10 POC ABG Base Excess 2 05/12/17 13:10 FiO2 25 % 05/12/17 13:10 Sodium 143 mmol/L (137-145) 05/23/17 05:53 Potassium 3.9 mmol/L (3.6-5.0) 05/23/17 05:53 Chloride 93.7 mmol/L (98-107) L 05/23/17 05:53 Carbon Dioxide 24 mmol/L (22-30) 05/23/17 05:53 Anion Gap 29 mmol/L 05/23/17 05:53 BUN 60 mg/dL (7-17) H 05/23/17 05:53 Creatinine 4.6 mg/dL (0.7-1.2) H 05/23/17 05:53 Estimated GFR 10 ml/min 05/23/17 05:53 BUN/Creatinine Ratio 13 % 05/23/17 05:53 Glucose 101 mg/dL (65-100) H 05/23/17 05:53 POC Glucose 103 (70-105) 05/23/17 06:28 Hemoglobin A1c 5.5 % (4-6) 05/16/17 04:00 Lactic Acid 2.60 mmol/L (0.7-2.0) H* 05/12/17 16:05 Calcium 8.5 mg/dL (8.4-10.2) 05/23/17 05:53 Phosphorus 4.60 mg/dL (2.5-4.5) H 05/23/17 05:53 Magnesium 2.20 mg/dL (1.7-2.3) 05/19/17 03:00 Total Bilirubin 0.30 mg/dL (0.1-1.2) 05/21/17 04:09 AST 13 units/L (5-40) 05/21/17 04:09 ALT 19 units/L (7-56) 05/21/17 04:09 Alkaline Phosphatase 191 units/L (35-129) H 05/21/17 04:09 Ammonia 34.0 umol/L (25-60) 05/17/17 04:45 Total Creatine Kinase 24 units/L (30-135) L 05/09/17 14:00 CK-MB (CK-2) 2.2 ng/mL (0.0-4.0) 05/09/17 14:00 CK-MB (CK-2) Rel Index 9.1 (0-4) H 05/09/17 14:00 Troponin T 0.654 ng/mL (0.00-0.029) H* 05/09/17 14:00 C-Reactive Protein 14.70 mg/dL (0.00-1.30) H 05/15/17 12:15 Total Protein 7.1 g/dL (6.3-8.2) 05/21/17 04:09 Albumin 3.7 g/dL (3.9-5) L 05/21/17 04:09 Albumin/Globulin Ratio 1.1 % 05/21/17 04:09 Triglycerides 125 mg/dL (2-149) 05/09/17 06:00 Cholesterol 73 mg/dL (50-199) 05/09/17 06:00 LDL Cholesterol Direct 21 mg/dL (50-130) L 05/09/17 06:00 HDL Cholesterol 27 mg/dL (40-59) L 05/09/17 06:00 Cholesterol/HDL Ratio 2.70 % 05/09/17 06:00 Total Cortisol 35.2 mcg/dL () 05/15/17 12:15 Urine Color Yellow (Yellow) 05/08/17 Unknown Urine Turbidity Clear (Clear) 05/08/17 Unknown Urine pH 7.0 (5.0-7.0) 05/08/17 Unknown Ur Specific [place] 1.014 (1.003-1.030) 05/08/17 Unknown Urine Protein 100 mg/dl mg/dL (Negative) 05/08/17 Unknown Urine Glucose (UA) 150 mg/dL (Negative) 05/08/17 Unknown Urine Ketones Neg mg/dL (Negative) 05/08/17 Unknown Urine Blood Sm (Negative) 05/08/17 Unknown Urine Nitrite Neg (Negative) 05/08/17 Unknown Urine Bilirubin Neg (Negative) 05/08/17 Unknown Urine Urobilinogen < 2.0 mg/dL (<2.0) 05/08/17 Unknown Ur Leukocyte Esterase Tr (Negative) 05/08/17 Unknown Urine WBC (Auto) 16.0 /HPF (0.0-6.0) H 05/08/17 Unknown Urine RBC (Auto) 3.0 /HPF (0.0-6.0) 05/08/17 Unknown U Epithel Cells (Auto) < 1.0 /HPF (0-13.0) 05/08/17 Unknown Urine Bacteria (Auto) 1+ /HPF (Negative) 05/08/17 Unknown Salicylates < 0.3 mg/dL (2.8-20.0) L 05/08/17 21:35 Acetaminophen < 15.0 ug/mL (10.0-30.0) 05/08/17 21:35 Hepatitis A IgM Ab Non-reactive (NonReactive) 05/09/17 17:00 Hep Bs Antigen Non-reactive (Negative) 05/09/17 17:00 Hep B Core IgM Ab Non-reactive (NonReactive) 05/09/17 17:00 Hepatitis C Antibody Reactive (NonReactive) A 05/09/17 17:00
[2017-05-23] MEDS: RENVELA PO SCH ×4 (08:55→18:31)
--- NOTE | 2017-05-23 10:10 | Progress Note ---
Assessment and Plan Acute on chronic systolic heart failure- improving ICMP - echo 04/17/2017 showed EF 40% nstemi type 2 - ECG with NAF; Acute respiratory failure - s/p extubation AMS - head CT with NAF MRSA pneumonia/atelectasis Septic shock ESRD on HD - TTS HD schedule CAD, MS with PCI of mid LAD and mid circ at [facility] (01/20/2016), NSTEMI with subacute left circ and LAD stent thrombosis s/p stent of left circ and balloon angioplasty alone of LAD (02/22/2016) DM H/o HTN - with hypotension since admission HLP Anemia Hepatitis C Moderate to severe TR Pulmonary HTN - RVSP 57.9mmHg rec: In view of patient's stable hypotension on midrone is not a candidate for beta blockers or Emir inhibitors patient will continue dialysis for fluid status is on aspirin statin medication continue current cardiac meds waiting care home placement no cardiac heart contraindication at this time to transfer back to care home pt has poor swallow evaluation and aspiration risk, Subjective Date of service: 05/23/17 Principal diagnosis: MRSA pneumonia, shock,sepsis,ESRD Interval history: pt lying in bed no distress , refusing meds Objective Vital Signs Temp Pulse Pulse Resp Resp BP Pulse Ox 05/23/17 07:47 97.3 F L 80 50 H 102/60 99 05/23/17 04:13 97.8 F 80 18 91/49 91 05/23/17 02:00 90 15 05/22/17 23:40 98 05/22/17 22:11 97.4 F L 82 20 108/64 98 05/22/17 19:35 97.8 F 83 18 90/51 94 05/22/17 15:56 97.7 F 90 18 96/60 85 05/22/17 14:56 87 18 05/22/17 14:40 88 18 05/22/17 12:26 97.5 F L 87 18 90/39 96 - Physical Examination General: No Apparent Distress, Other (appears to be chronically ill) HEENT: Positive: PERRL, Normocephaly, Mucus Membranes Moist Neck: Positive: neck supple, trachea midline Cardiac: Positive: Reg Rate and Rhythm Lungs: Positive: clear to auscultation Neuro: Positive: Grossly Intact Abdomen: Positive: Soft. Negative: Tender Skin: Positive: Clear. Negative: Rash, Wound Musculoskeletal: No Fluid Collection, No Pain, Normal Range of Motion Extremities: Absent: edema - Labs and Meds CBC 05/23/17 Range/Units 05:53 WBC 22.5 H (4.5-11.0) K/mm3 RBC 3.49 L (3.65-5.03) M/mm3 Hgb 11.4 (10.1-14.3) gm/dl Hct 37.1 (30.3-42.9) % Plt Count 307 (140-440) K/mm3 Comprehensive Metabolic Panel 05/23/17 Range/Units 05:53 Sodium 143 (137-145) mmol/L Potassium 3.9 (3.6-5.0) mmol/L Chloride 93.7 L (98-107) mmol/L Carbon Dioxide 24 (22-30) mmol/L BUN 60 H (7-17) mg/dL Creatinine 4.6 H (0.7-1.2) mg/dL Glucose 101 H (65-100) mg/dL Calcium 8.5 (8.4-10.2) mg/dL - Imaging and Cardiology EKG: report reviewed, image reviewed Cardiac cath: report reviewed (MS and PCI of mid LAD and mid circ on 01/20/2016; subacute left circ and LAD stent thrombosis s/p stent of left circ and balloon angioplasty alone of LAD (02/22/2016)) - EKG Sinus rhythms and dysrhythmias: sinus rhythm (occasional vpc) AV and intraventricular conduction: right bundle branch block (incomplete)
[2017-05-23] MEDS: ZOLOFT PO SCH (11:07)
[2017-05-23] MEDS: BABY ASPIRIN PO SCH (11:08)
[2017-05-23] MEDS: HABITROL TD SCH (11:08)
[2017-05-23] MEDS: HEPARIN SUB-Q SCH ×2 (11:08→21:58)
[2017-05-23] MEDS: SENSIPAR PO SCH ×2 (11:08→21:57)
--- NOTE | 2017-05-23 15:54 | Progress Note ---
Assessment and Plan 56 y/o female with acute respiratory failure, most likely secondary to volume overload and altered mental status, exact etiology unknown, now with persistent hypotension of unknown etiology, now resolved. MRSA pneumonia with increasing WBC 1. Continue TID Midodrine 2. Continue supplemental O2, wean for sats >88%. Not sure if patient wears home o2 3. Bipap PRN 4. OOB to chair, PT/OT 5. Repeat CXR Subjective Date of service: 05/23/17 Principal diagnosis: MRSA pneumonia, shock,sepsis,ESRD Interval history: Patient seems to doing well. Denied any new complaints. Wants to go home Objective Vital Signs - 12hr 05/23/17 05/23/17 05/23/17 04:13 07:47 07:50 Temperature 97.8 F 97.3 F L Pulse Rate 80 80 Pulse Rate [ Anterior Bilateral Throughout] Pulse Rate [ 80 Posterior Bilateral Throughout] Respiratory 18 50 H Rate Respiratory Rate [Anterior Bilateral Throughout] Respiratory 18 Rate [Posterior Bilateral Throughout] Blood Pressure 91/49 102/60 O2 Sat by Pulse 91 99 Oximetry 05/23/17 05/23/17 05/23/17 08:00 10:00 11:26 Temperature Pulse Rate Pulse Rate [ Anterior Bilateral Throughout] Pulse Rate [ 82 Posterior Bilateral Throughout] Respiratory Rate Respiratory Rate [Anterior Bilateral Throughout] Respiratory 18 Rate [Posterior Bilateral Throughout] Blood Pressure O2 Sat by Pulse 99 99 Oximetry 05/23/17 05/23/17 05/23/17 11:54 13:07 13:17 Temperature 97.4 F L Pulse Rate 90 Pulse Rate [ 90 87 Anterior Bilateral Throughout] Pulse Rate [ Posterior Bilateral Throughout] Respiratory 18 Rate Respiratory 18 18 Rate [Anterior Bilateral Throughout] Respiratory Rate [Posterior Bilateral Throughout] Blood Pressure 110/65 O2 Sat by Pulse 100 Oximetry Constitutional: no acute distress, alert ENT: oropharynx moist Neck: supple Effort: normal Ascultation: Bilateral: clear, diminished breath sounds, wheezes (few expiratory bilaterally), rales, rhonchi (few bilaterally) Percussion: Bilateral: not dull Cardiovascular: regular rate and rhythm (no mrg) Gastrointestinal: normoactive bowel sounds, soft, non-tender Integumentary: other (Patsy left-sided face) Extremities: no cyanosis, no edema Neurologic: normal mental status, non-focal exam, pupils equal and round, CN II- XII normal, motor strength normal and Psychiatric: mood appropriate, affect normal CBC and BMP: 05/23/17 05:53 05/23/17 05:53 ABG, PT/INR, D-dimer: ABG POC ABG pH 7.450 (7.35-7.45) 05/12/17 13:10 POC ABG pCO2 36.7 (35-45) 05/12/17 13:10 POC ABG pO2 66 (80-105) L 05/12/17 13:10 POC ABG HCO3 25.5 05/12/17 13:10 POC ABG Total CO2 27 05/12/17 13:10 POC ABG O2 Sat 94 05/12/17 13:10 PT/INR, D-dimer PT 14.4 Sec. (12.2-14.9) 05/17/17 04:45 INR 1.06 (0.87-1.13) 05/17/17 04:45 Abnormal lab findings: Abnormal Labs 05/08/17 05/08/17 05/08/17 21:25 21:25 21:25 WBC RBC 2.55 L Hgb 8.9 L Hct 28.1 L MCV 111 H MCH 35 H RDW 25.4 H Lymph % (Auto) [place] % (Auto) Lymph # [place] # Baso # Seg Neutrophils % Seg Neuts % (Manual) 92.0 H Lymphocytes % (Manual) 6.0 L Monocytes % (Manual) Nucleated RBC % Seg Neutrophils # Seg Neutrophils # Man 9.3 H Lymphocytes # (Manual) 0.6 L Monocytes # (Manual) PT 15.2 H INR 1.14 H POC ABG pH POC ABG pCO2 POC ABG pO2 Sodium Potassium Chloride Carbon Dioxide BUN Creatinine Glucose POC Glucose Lactic Acid 2.50 H* Calcium Phosphorus AST ALT Alkaline Phosphatase Total Creatine Kinase CK-MB (CK-2) Rel Index Troponin T C-Reactive Protein Total Protein Albumin LDL Cholesterol Direct HDL Cholesterol Urine WBC (Auto) Salicylates Hepatitis C Antibody 05/08/17 05/08/17 05/08/17 21:35 22:04 22:42 WBC RBC Hgb Hct MCV MCH RDW Lymph % (Auto) [place] % (Auto) Lymph # [place] # Baso # Seg Neutrophils % Seg Neuts % (Manual) Lymphocytes % (Manual) Monocytes % (Manual) Nucleated RBC % Seg Neutrophils # Seg Neutrophils # Man Lymphocytes # (Manual) Monocytes # (Manual) PT INR POC ABG pH 7.271 L POC ABG pCO2 56.5 H POC ABG pO2 30 L Sodium Potassium Chloride 107.8 H Carbon Dioxide BUN 22 H Creatinine 2.6 H Glucose 202 H POC Glucose Lactic Acid Calcium 7.3 L Phosphorus AST ALT Alkaline Phosphatase 258 H Total Creatine Kinase CK-MB (CK-2) Rel Index Troponin T C-Reactive Protein Total Protein 5.2 L Albumin 2.9 L LDL Cholesterol Direct HDL Cholesterol Urine WBC (Auto) Salicylates < 0.3 L Hepatitis C Antibody 05/08/17 05/09/17 05/09/17 Unknown 00:24 06:00 WBC RBC Hgb Hct MCV MCH RDW Lymph % (Auto) [place] % (Auto) Lymph # [place] # Baso # Seg Neutrophils % Seg Neuts % (Manual) Lymphocytes % (Manual) Monocytes % (Manual) Nucleated RBC % Seg Neutrophils # Seg Neutrophils # Man Lymphocytes # (Manual) Monocytes # (Manual) PT INR POC ABG pH 7.283 L POC ABG pCO2 49.9 H POC ABG pO2 249 H Sodium Potassium Chloride Carbon Dioxide BUN Creatinine Glucose POC Glucose Lactic Acid Calcium Phosphorus AST ALT Alkaline Phosphatase Total Creatine Kinase 19 L CK-MB (CK-2) Rel Index 11.0 H Troponin T 0.612 H* C-Reactive Protein Total Protein Albumin LDL Cholesterol Direct 21 L HDL Cholesterol 27 L Urine WBC (Auto) 16.0 H Salicylates Hepatitis C Antibody 05/09/17 05/09/17 05/09/17 06:00 06:00 08:52 WBC 11.7 H RBC 2.67 L Hgb 9.3 L Hct 30.0 L MCV 112 H MCH 35 H RDW 24.4 H Lymph % (Auto) [place] % (Auto) Lymph # [place] # Baso # Seg Neutrophils % Seg Neuts % (Manual) Lymphocytes % (Manual) Monocytes % (Manual) Nucleated RBC % Seg Neutrophils # Seg Neutrophils # Man Lymphocytes # (Manual) Monocytes # (Manual) PT INR POC ABG pH 7.323 L POC ABG pCO2 POC ABG pO2 143 H Sodium Potassium Chloride Carbon Dioxide BUN 24 H Creatinine 2.9 H Glucose 172 H POC Glucose Lactic Acid Calcium 7.7 L Phosphorus AST ALT Alkaline Phosphatase Total Creatine Kinase CK-MB (CK-2) Rel Index Troponin T C-Reactive Protein Total Protein Albumin LDL Cholesterol Direct HDL Cholesterol Urine WBC (Auto) Salicylates Hepatitis C Antibody 05/09/17 05/09/17 05/11/17 14:00 17:00 06:09 WBC 11.4 H RBC 2.66 L Hgb 9.1 L Hct 29.3 L MCV 110 H MCH 34 H RDW 23.1 H Lymph % (Auto) 4.2 L [place] % (Auto) 12.7 H Lymph # 0.5 L [place] # 1.4 H Baso # Seg Neutrophils % 82.5 H Seg Neuts % (Manual) Lymphocytes % (Manual) Monocytes % (Manual) Nucleated RBC % Seg Neutrophils # 9.4 H Seg Neutrophils # Man Lymphocytes # (Manual) Monocytes # (Manual) PT INR POC ABG pH POC ABG pCO2 POC ABG pO2 Sodium Potassium Chloride Carbon Dioxide BUN Creatinine Glucose POC Glucose Lactic Acid Calcium Phosphorus AST ALT Alkaline Phosphatase Total Creatine Kinase 24 L CK-MB (CK-2) Rel Index 9.1 H Troponin T 0.654 H* C-Reactive Protein Total Protein Albumin LDL Cholesterol Direct HDL Cholesterol Urine WBC (Auto) Salicylates Hepatitis C Antibody Reactive A 05/11/17 05/11/17 05/11/17 06:09 08:20 11:34 WBC RBC Hgb Hct MCV MCH RDW Lymph % (Auto) [place] % (Auto) Lymph # [place] # Baso # Seg Neutrophils % Seg Neuts % (Manual) Lymphocytes % (Manual) Monocytes % (Manual) Nucleated RBC % Seg Neutrophils # Seg Neutrophils # Man Lymphocytes # (Manual) Monocytes # (Manual) PT INR POC ABG pH POC ABG pCO2 POC ABG pO2 Sodium Potassium Chloride 95.6 L Carbon Dioxide 20 L BUN 24 H Creatinine 3.4 H Glucose 134 H POC Glucose 154 H 149 H Lactic Acid Calcium Phosphorus AST ALT Alkaline Phosphatase Total Creatine Kinase CK-MB (CK-2) Rel Index Troponin T C-Reactive Protein Total Protein Albumin LDL Cholesterol Direct HDL Cholesterol Urine WBC (Auto) Salicylates Hepatitis C Antibody 05/11/17 05/11/17 05/11/17 15:30 16:27 21:58 WBC RBC Hgb Hct MCV MCH RDW Lymph % (Auto) [place] % (Auto) Lymph # [place] # Baso # Seg Neutrophils % Seg Neuts % (Manual) Lymphocytes % (Manual) Monocytes % (Manual) Nucleated RBC % Seg Neutrophils # Seg Neutrophils # Man Lymphocytes # (Manual) Monocytes # (Manual) PT INR POC ABG pH POC ABG pCO2 POC ABG pO2 Sodium Potassium Chloride Carbon Dioxide BUN Creatinine Glucose POC Glucose 163 H 199 H Lactic Acid Calcium Phosphorus AST ALT Alkaline Phosphatase Total Creatine Kinase CK-MB (CK-2) Rel Index Troponin T C-Reactive Protein 44.70 H Total Protein Albumin LDL Cholesterol Direct HDL Cholesterol Urine WBC (Auto) Salicylates Hepatitis C Antibody 05/12/17 05/12/17 05/12/17 08:42 13:10 14:10 WBC RBC Hgb Hct MCV MCH RDW Lymph % (Auto) [place] % (Auto) Lymph # [place] # Baso # Seg Neutrophils % Seg Neuts % (Manual) Lymphocytes % (Manual) Monocytes % (Manual) Nucleated RBC % Seg Neutrophils # Seg Neutrophils # Man Lymphocytes # (Manual) Monocytes # (Manual) PT INR POC ABG pH POC ABG pCO2 POC ABG pO2 66 L Sodium Potassium Chloride Carbon Dioxide BUN Creatinine Glucose POC Glucose 190 H 162 H Lactic Acid Calcium Phosphorus AST ALT Alkaline Phosphatase Total Creatine Kinase CK-MB (CK-2) Rel Index Troponin T C-Reactive Protein Total Protein Albumin LDL Cholesterol Direct HDL Cholesterol Urine WBC (Auto) Salicylates Hepatitis C Antibody 05/12/17 05/12/17 05/12/17 15:46 16:05 21:42 WBC RBC Hgb Hct MCV MCH RDW Lymph % (Auto) [place] % (Auto) Lymph # [place] # Baso # Seg Neutrophils % Seg Neuts % (Manual) Lymphocytes % (Manual) Monocytes % (Manual) Nucleated RBC % Seg Neutrophils # Seg Neutrophils # Man Lymphocytes # (Manual) Monocytes # (Manual) PT INR POC ABG pH POC ABG pCO2 POC ABG pO2 Sodium Potassium Chloride Carbon Dioxide BUN Creatinine Glucose POC Glucose 153 H 153 H Lactic Acid 2.60 H* Calcium Phosphorus AST ALT Alkaline Phosphatase Total Creatine Kinase CK-MB (CK-2) Rel Index Troponin T C-Reactive Protein Total Protein Albumin LDL Cholesterol Direct HDL Cholesterol Urine WBC (Auto) Salicylates Hepatitis C Antibody 05/13/17 05/13/17 05/13/17 05:12 05:30 05:30 WBC 22.0 H RBC 3.02 L Hgb 9.9 L Hct MCV 105 H MCH 33 H RDW 22.9 H Lymph % (Auto) [place] % (Auto) Lymph # [place] # Baso # Seg Neutrophils % Seg Neuts % (Manual) 89.0 H Lymphocytes % (Manual) 6.0 L Monocytes % (Manual) Nucleated RBC % 1.0 H Seg Neutrophils # Seg Neutrophils # Man 19.6 H Lymphocytes # (Manual) Monocytes # (Manual) 0.9 H PT INR POC ABG pH POC ABG pCO2 POC ABG pO2 Sodium Potassium Chloride 90.8 L Carbon Dioxide 21 L BUN 28 H Creatinine 3.1 H Glucose 172 H POC Glucose 182 H Lactic Acid Calcium Phosphorus AST ALT Alkaline Phosphatase Total Creatine Kinase CK-MB (CK-2) Rel Index Troponin T C-Reactive Protein Total Protein Albumin LDL Cholesterol Direct HDL Cholesterol Urine WBC (Auto) Salicylates Hepatitis C Antibody 05/13/17 05/13/17 05/13/17 11:52 18:01 23:31 WBC RBC Hgb Hct MCV MCH RDW Lymph % (Auto) [place] % (Auto) Lymph # [place] # Baso # Seg Neutrophils % Seg Neuts % (Manual) Lymphocytes % (Manual) Monocytes % (Manual) Nucleated RBC % Seg Neutrophils # Seg Neutrophils # Man Lymphocytes # (Manual) Monocytes # (Manual) PT INR POC ABG pH POC ABG pCO2 POC ABG pO2 Sodium Potassium Chloride Carbon Dioxide BUN Creatinine Glucose POC Glucose 185 H 216 H 281 H Lactic Acid Calcium Phosphorus AST ALT Alkaline Phosphatase Total Creatine Kinase CK-MB (CK-2) Rel Index Troponin T C-Reactive Protein Total Protein Albumin LDL Cholesterol Direct HDL Cholesterol Urine WBC (Auto) Salicylates Hepatitis C Antibody 05/14/17 05/14/17 05/14/17 05:43 06:10 06:10 WBC 19.6 H RBC 3.61 L Hgb Hct MCV 104 H MCH 34 H RDW 23.4 H Lymph % (Auto) 8.6 L [place] % (Auto) Lymph # [place] # 1.3 H Baso # 0.2 H Seg Neutrophils % 82.5 H Seg Neuts % (Manual) Lymphocytes % (Manual) Monocytes % (Manual) Nucleated RBC % Seg Neutrophils # 16.2 H Seg Neutrophils # Man Lymphocytes # (Manual) Monocytes # (Manual) PT INR POC ABG pH POC ABG pCO2 POC ABG pO2 Sodium Potassium 3.4 L Chloride 89.1 L Carbon Dioxide BUN 32 H Creatinine 3.0 H Glucose 224 H POC Glucose 215 H Lactic Acid Calcium Phosphorus AST 85 H ALT 162 H Alkaline Phosphatase 347 H Total Creatine Kinase CK-MB (CK-2) Rel Index Troponin T C-Reactive Protein Total Protein 8.5 H Albumin LDL Cholesterol Direct HDL Cholesterol Urine WBC (Auto) Salicylates Hepatitis C Antibody 05/14/17 05/14/17 05/14/17 08:32 11:26 16:42 WBC RBC Hgb Hct MCV MCH RDW Lymph % (Auto) [place] % (Auto) Lymph # [place] # Baso # Seg Neutrophils % Seg Neuts % (Manual) Lymphocytes % (Manual) Monocytes % (Manual) Nucleated RBC % Seg Neutrophils # Seg Neutrophils # Man Lymphocytes # (Manual) Monocytes # (Manual) PT INR POC ABG pH POC ABG pCO2 POC ABG pO2 Sodium Potassium Chloride Carbon Dioxide BUN Creatinine Glucose POC Glucose 204 H 182 H 310 H Lactic Acid Calcium Phosphorus AST ALT Alkaline Phosphatase Total Creatine Kinase CK-MB (CK-2) Rel Index Troponin T C-Reactive Protein Total Protein Albumin LDL Cholesterol Direct HDL Cholesterol Urine WBC (Auto) Salicylates Hepatitis C Antibody 05/14/17 05/15/17 05/15/17 23:00 03:45 03:45 WBC 18.3 H RBC 3.42 L Hgb Hct MCV 105 H MCH 34 H RDW 23.0 H Lymph % (Auto) 10.4 L [place] % (Auto) 7.7 H Lymph # [place] # 1.4 H Baso # Seg Neutrophils % 79.5 H Seg Neuts % (Manual) Lymphocytes % (Manual) Monocytes % (Manual) Nucleated RBC % Seg Neutrophils # 14.6 H Seg Neutrophils # Man Lymphocytes # (Manual) Monocytes # (Manual) PT INR POC ABG pH POC ABG pCO2 POC ABG pO2 Sodium 132 L Potassium Chloride 88.4 L Carbon Dioxide BUN 29 H Creatinine 2.8 H Glucose 310 H POC Glucose 264 H Lactic Acid Calcium Phosphorus AST 54 H ALT 111 H Alkaline Phosphatase 318 H Total Creatine Kinase CK-MB (CK-2) Rel Index Troponin T C-Reactive Protein Total Protein Albumin 3.7 L LDL Cholesterol Direct HDL Cholesterol Urine WBC (Auto) Salicylates Hepatitis C Antibody 05/15/17 05/15/17 05/15/17 07:36 12:14 12:15 WBC RBC Hgb Hct MCV MCH RDW Lymph % (Auto) [place] % (Auto) Lymph # [place] # Baso # Seg Neutrophils % Seg Neuts % (Manual) Lymphocytes % (Manual) Monocytes % (Manual) Nucleated RBC % Seg Neutrophils # Seg Neutrophils # Man Lymphocytes # (Manual) Monocytes # (Manual) PT INR POC ABG pH POC ABG pCO2 POC ABG pO2 Sodium Potassium Chloride Carbon Dioxide BUN Creatinine Glucose POC Glucose 253 H > 500 H Lactic Acid Calcium Phosphorus AST ALT Alkaline Phosphatase Total Creatine Kinase CK-MB (CK-2) Rel Index Troponin T C-Reactive Protein 14.70 H Total Protein Albumin LDL Cholesterol Direct HDL Cholesterol Urine WBC (Auto) Salicylates Hepatitis C Antibody 05/15/17 05/15/17 05/15/17 12:15 15:43 22:26 WBC RBC Hgb Hct MCV MCH RDW Lymph % (Auto) [place] % (Auto) Lymph # [place] # Baso # Seg Neutrophils % Seg Neuts % (Manual) Lymphocytes % (Manual) Monocytes % (Manual) Nucleated RBC % Seg Neutrophils # Seg Neutrophils # Man Lymphocytes # (Manual) Monocytes # (Manual) PT INR POC ABG pH POC ABG pCO2 POC ABG pO2 Sodium Potassium Chloride Carbon Dioxide BUN Creatinine Glucose 336 H POC Glucose 288 H 243 H Lactic Acid Calcium Phosphorus AST ALT Alkaline Phosphatase Total Creatine Kinase CK-MB (CK-2) Rel Index Troponin T C-Reactive Protein Total Protein Albumin LDL Cholesterol Direct HDL Cholesterol Urine WBC (Auto) Salicylates Hepatitis C Antibody 05/16/17 05/16/17 05/16/17 04:00 04:00 07:26 WBC 23.5 H RBC 3.25 L Hgb Hct MCV 106 H MCH 33 H RDW 23.2 H Lymph % (Auto) [place] % (Auto) Lymph # [place] # Baso # Seg Neutrophils % Seg Neuts % (Manual) Lymphocytes % (Manual) 9.0 L Monocytes % (Manual) 14.0 H Nucleated RBC % Seg Neutrophils # Seg Neutrophils # Man 15.3 H Lymphocytes # (Manual) Monocytes # (Manual) 3.3 H PT INR POC ABG pH POC ABG pCO2 POC ABG pO2 Sodium Potassium Chloride 91.5 L Carbon Dioxide BUN 48 H Creatinine 4.5 H D Glucose POC Glucose 107 H Lactic Acid Calcium Phosphorus AST ALT Alkaline Phosphatase Total Creatine Kinase CK-MB (CK-2) Rel Index Troponin T C-Reactive Protein Total Protein Albumin LDL Cholesterol Direct HDL Cholesterol Urine WBC (Auto) Salicylates Hepatitis C Antibody 05/16/17 05/16/17 05/16/17 11:57 17:14 21:30 WBC RBC Hgb Hct MCV MCH RDW Lymph % (Auto) [place] % (Auto) Lymph # [place] # Baso # Seg Neutrophils % Seg Neuts % (Manual) Lymphocytes % (Manual) Monocytes % (Manual) Nucleated RBC % Seg Neutrophils # Seg Neutrophils # Man Lymphocytes # (Manual) Monocytes # (Manual) PT INR POC ABG pH POC ABG pCO2 POC ABG pO2 Sodium Potassium Chloride Carbon Dioxide BUN Creatinine Glucose POC Glucose 190 H 200 H 152 H Lactic Acid Calcium Phosphorus AST ALT Alkaline Phosphatase Total Creatine Kinase CK-MB (CK-2) Rel Index Troponin T C-Reactive Protein Total Protein Albumin LDL Cholesterol Direct HDL Cholesterol Urine WBC (Auto) Salicylates Hepatitis C Antibody 05/17/17 05/17/17 05/17/17 04:45 04:45 08:20 WBC 16.7 H RBC 3.08 L Hgb Hct MCV 106 H MCH 33 H RDW 23.3 H Lymph % (Auto) 3.8 L [place] % (Auto) Lymph # 0.6 L [place] # 1.1 H Baso # 0.2 H Seg Neutrophils % 87.5 H Seg Neuts % (Manual) Lymphocytes % (Manual) Monocytes % (Manual) Nucleated RBC % Seg Neutrophils # 14.6 H Seg Neutrophils # Man Lymphocytes # (Manual) Monocytes # (Manual) PT INR POC ABG pH POC ABG pCO2 POC ABG pO2 Sodium 134 L Potassium Chloride 89.3 L Carbon Dioxide 21 L BUN 60 H Creatinine 6.1 H Glucose POC Glucose 107 H Lactic Acid Calcium Phosphorus AST ALT Alkaline Phosphatase 226 H Total Creatine Kinase CK-MB (CK-2) Rel Index Troponin T C-Reactive Protein Total Protein Albumin 3.5 L LDL Cholesterol Direct HDL Cholesterol Urine WBC (Auto) Salicylates Hepatitis C Antibody 05/17/17 05/17/17 05/17/17 11:24 16:24 21:34 WBC RBC Hgb Hct MCV MCH RDW Lymph % (Auto) [place] % (Auto) Lymph # [place] # Baso # Seg Neutrophils % Seg Neuts % (Manual) Lymphocytes % (Manual) Monocytes % (Manual) Nucleated RBC % Seg Neutrophils # Seg Neutrophils # Man Lymphocytes # (Manual) Monocytes # (Manual) PT INR POC ABG pH POC ABG pCO2 POC ABG pO2 Sodium Potassium Chloride Carbon Dioxide BUN Creatinine Glucose POC Glucose 172 H 116 H 182 H Lactic Acid Calcium Phosphorus AST ALT Alkaline Phosphatase Total Creatine Kinase CK-MB (CK-2) Rel Index Troponin T C-Reactive Protein Total Protein Albumin LDL Cholesterol Direct HDL Cholesterol Urine WBC (Auto) Salicylates Hepatitis C Antibody 05/18/17 05/18/17 05/18/17 05:06 08:01 11:32 WBC RBC Hgb Hct MCV MCH RDW Lymph % (Auto) [place] % (Auto) Lymph # [place] # Baso # Seg Neutrophils % Seg Neuts % (Manual) Lymphocytes % (Manual) Monocytes % (Manual) Nucleated RBC % Seg Neutrophils # Seg Neutrophils # Man Lymphocytes # (Manual) Monocytes # (Manual) PT INR POC ABG pH POC ABG pCO2 POC ABG pO2 Sodium Potassium Chloride Carbon Dioxide BUN Creatinine Glucose POC Glucose 153 H 145 H 247 H Lactic Acid Calcium Phosphorus AST ALT Alkaline Phosphatase Total Creatine Kinase CK-MB (CK-2) Rel Index Troponin T C-Reactive Protein Total Protein Albumin LDL Cholesterol Direct HDL Cholesterol Urine WBC (Auto) Salicylates Hepatitis C Antibody 05/18/17 05/18/17 05/19/17 16:09 22:17 03:00 WBC RBC 2.88 L Hgb 9.8 L Hct 30.2 L MCV 105 H MCH 34 H RDW 23.6 H Lymph % (Auto) 7.1 L [place] % (Auto) Lymph # 0.5 L [place] # Baso # Seg Neutrophils % 86.5 H Seg Neuts % (Manual) Lymphocytes % (Manual) Monocytes % (Manual) Nucleated RBC % Seg Neutrophils # Seg Neutrophils # Man Lymphocytes # (Manual) Monocytes # (Manual) PT INR POC ABG pH POC ABG pCO2 POC ABG pO2 Sodium Potassium Chloride Carbon Dioxide BUN Creatinine Glucose POC Glucose 237 H 162 H Lactic Acid Calcium Phosphorus AST ALT Alkaline Phosphatase Total Creatine Kinase CK-MB (CK-2) Rel Index Troponin T C-Reactive Protein Total Protein Albumin LDL Cholesterol Direct HDL Cholesterol Urine WBC (Auto) Salicylates Hepatitis C Antibody 05/19/17 05/19/17 05/19/17 03:00 07:19 21:30 WBC RBC Hgb Hct MCV MCH RDW Lymph % (Auto) [place] % (Auto) Lymph # [place] # Baso # Seg Neutrophils % Seg Neuts % (Manual) Lymphocytes % (Manual) Monocytes % (Manual) Nucleated RBC % Seg Neutrophils # Seg Neutrophils # Man Lymphocytes # (Manual) Monocytes # (Manual) PT INR POC ABG pH POC ABG pCO2 POC ABG pO2 Sodium 136 L Potassium Chloride 90.1 L Carbon Dioxide BUN 49 H Creatinine 4.8 H Glucose 126 H POC Glucose 128 H 145 H Lactic Acid Calcium Phosphorus AST ALT Alkaline Phosphatase Total Creatine Kinase CK-MB (CK-2) Rel Index Troponin T C-Reactive Protein Total Protein Albumin LDL Cholesterol Direct HDL Cholesterol Urine WBC (Auto) Salicylates Hepatitis C Antibody 05/20/17 05/20/17 05/20/17 05:00 05:00 07:34 WBC RBC 3.12 L Hgb Hct MCV 106 H MCH 33 H RDW 23.7 H Lymph % (Auto) [place] % (Auto) Lymph # [place] # Baso # Seg Neutrophils % Seg Neuts % (Manual) 93.0 H Lymphocytes % (Manual) 3.0 L Monocytes % (Manual) Nucleated RBC % Seg Neutrophils # Seg Neutrophils # Man 9.8 H Lymphocytes # (Manual) 0.3 L Monocytes # (Manual) PT INR POC ABG pH POC ABG pCO2 POC ABG pO2 Sodium Potassium Chloride 95.5 L Carbon Dioxide BUN 29 H Creatinine 2.9 H Glucose 167 H POC Glucose 182 H Lactic Acid Calcium Phosphorus AST ALT Alkaline Phosphatase 195 H Total Creatine Kinase CK-MB (CK-2) Rel Index Troponin T C-Reactive Protein Total Protein Albumin 3.6 L LDL Cholesterol Direct HDL Cholesterol Urine WBC (Auto) Salicylates Hepatitis C Antibody 05/20/17 05/20/17 05/20/17 11:33 15:52 22:59 WBC RBC Hgb Hct MCV MCH RDW Lymph % (Auto) [place] % (Auto) Lymph # [place] # Baso # Seg Neutrophils % Seg Neuts % (Manual) Lymphocytes % (Manual) Monocytes % (Manual) Nucleated RBC % Seg Neutrophils # Seg Neutrophils # Man Lymphocytes # (Manual) Monocytes # (Manual) PT INR POC ABG pH POC ABG pCO2 POC ABG pO2 Sodium Potassium Chloride Carbon Dioxide BUN Creatinine Glucose POC Glucose 206 H 164 H 121 H Lactic Acid Calcium Phosphorus AST ALT Alkaline Phosphatase Total Creatine Kinase CK-MB (CK-2) Rel Index Troponin T C-Reactive Protein Total Protein Albumin LDL Cholesterol Direct HDL Cholesterol Urine WBC (Auto) Salicylates Hepatitis C Antibody 05/21/17 05/21/17 05/21/17 04:09 04:09 12:35 WBC 13.8 H RBC 3.32 L Hgb Hct MCV 106 H MCH 34 H RDW 23.7 H Lymph % (Auto) 8.3 L [place] % (Auto) Lymph # 1.1 L [place] # Baso # Seg Neutrophils % 87.2 H Seg Neuts % (Manual) Lymphocytes % (Manual) Monocytes % (Manual) Nucleated RBC % Seg Neutrophils # 12.0 H Seg Neutrophils # Man Lymphocytes # (Manual) Monocytes # (Manual) PT INR POC ABG pH POC ABG pCO2 POC ABG pO2 Sodium Potassium Chloride 90.6 L Carbon Dioxide BUN 59 H Creatinine 4.1 H Glucose 112 H POC Glucose 128 H Lactic Acid Calcium 8.2 L Phosphorus AST ALT Alkaline Phosphatase 191 H Total Creatine Kinase CK-MB (CK-2) Rel Index Troponin T C-Reactive Protein Total Protein Albumin 3.7 L LDL Cholesterol Direct HDL Cholesterol Urine WBC (Auto) Salicylates Hepatitis C Antibody 05/21/17 05/21/17 05/22/17 16:35 21:35 06:18 WBC RBC Hgb Hct MCV MCH RDW Lymph % (Auto) [place] % (Auto) Lymph # [place] # Baso # Seg Neutrophils % Seg Neuts % (Manual) Lymphocytes % (Manual) Monocytes % (Manual) Nucleated RBC % Seg Neutrophils # Seg Neutrophils # Man Lymphocytes # (Manual) Monocytes # (Manual) PT INR POC ABG pH POC ABG pCO2 POC ABG pO2 Sodium Potassium Chloride Carbon Dioxide BUN Creatinine Glucose POC Glucose 116 H 121 H 132 H Lactic Acid Calcium Phosphorus AST ALT Alkaline Phosphatase Total Creatine Kinase CK-MB (CK-2) Rel Index Troponin T C-Reactive Protein Total Protein Albumin LDL Cholesterol Direct HDL Cholesterol Urine WBC (Auto) Salicylates Hepatitis C Antibody 05/22/17 05/23/17 05/23/17 11:52 05:53 05:53 WBC 22.5 H RBC 3.49 L Hgb Hct MCV 106 H MCH 33 H RDW 23.1 H Lymph % (Auto) [place] % (Auto) Lymph # [place] # Baso # Seg Neutrophils % Seg Neuts % (Manual) Lymphocytes % (Manual) Monocytes % (Manual) Nucleated RBC % Seg Neutrophils # Seg Neutrophils # Man Lymphocytes # (Manual) Monocytes # (Manual) PT INR POC ABG pH POC ABG pCO2 POC ABG pO2 Sodium Potassium Chloride 93.7 L Carbon Dioxide BUN 60 H Creatinine 4.6 H Glucose 101 H POC Glucose 133 H Lactic Acid Calcium Phosphorus 4.60 H AST ALT Alkaline Phosphatase Total Creatine Kinase CK-MB (CK-2) Rel Index Troponin T C-Reactive Protein Total Protein Albumin LDL Cholesterol Direct HDL Cholesterol Urine WBC (Auto) Salicylates Hepatitis C Antibody
--- NOTE | 2017-05-23 16:28 | Progress Note ---
Assessment and Plan - Patient Problems (1) Acute hypoxemic respiratory failure Current Visit: No Status: Acute Plan to address problem: Currently on 3 liters nasal cannula oxygen As per pulmonology and primary team (2) ESRD (end stage renal disease) Current Visit: Yes Status: Chronic Plan to address problem: No acute indication for HD today Hemodialysis tomorrow for UF and clearance, goal UF 2-3 liters as tolerated Assess need for HD on daily basis Continue midodrine for blood pressure support Monitor daily labs and adjust renal management as needed On sensipar Currently on renvela 800 mg orally three times a day with meals Renally dose medications Obtain daily weight Strict intake and output Renal plan discussed with Dr Fuchs Continue supportive therapy (3) Diabetes mellitus Current Visit: Yes Status: Acute Plan to address problem: On insulin As per primary team (4) Hypotension Current Visit: Yes Status: Acute Plan to address problem: Continue midodrine for blood pressure support (5) Pneumonia Current Visit: No Status: Acute Qualifiers: Laterality: bilateral Plan to address problem: As per ID and pulmonology management Subjective Date of service: 05/23/17 Principal diagnosis: MRSA pneumonia, shock,sepsis,ESRD Interval history: Patient reports no complaints at this time, denies shortness of breath. No family at bedside. Objective - Vital Signs Vital signs: Vital Signs - 12hr 05/23/17 05/23/17 05/23/17 07:47 07:50 08:00 Temperature 97.3 F L Pulse Rate 80 Pulse Rate [ Anterior Bilateral Throughout] Pulse Rate [ 80 82 Posterior Bilateral Throughout] Respiratory 50 H Rate Respiratory Rate [Anterior Bilateral Throughout] Respiratory 18 18 Rate [Posterior Bilateral Throughout] Blood Pressure 102/60 O2 Sat by Pulse 99 Oximetry 05/23/17 05/23/17 05/23/17 10:00 11:26 11:54 Temperature 97.4 F L Pulse Rate 90 Pulse Rate [ Anterior Bilateral Throughout] Pulse Rate [ Posterior Bilateral Throughout] Respiratory 18 Rate Respiratory Rate [Anterior Bilateral Throughout] Respiratory Rate [Posterior Bilateral Throughout] Blood Pressure 110/65 O2 Sat by Pulse 99 99 100 Oximetry 05/23/17 05/23/17 05/23/17 13:07 13:17 15:58 Temperature 97.4 F L Pulse Rate 79 Pulse Rate [ 90 87 Anterior Bilateral Throughout] Pulse Rate [ Posterior Bilateral Throughout] Respiratory 20 Rate Respiratory 18 18 Rate [Anterior Bilateral Throughout] Respiratory Rate [Posterior Bilateral Throughout] Blood Pressure 95/46 O2 Sat by Pulse 100 Oximetry - General Appearance General appearance: frail (no acute distress) EENT: ATNC Neck: no JVD Respiratory: Present: Other (Lung sounds decreased bilaterally, unlabored on 3 liters nasal cannula) Cardiology: regular, S1S2, other (ACCESS: Left AVF with positive thrill and bruit noted) Gastrointestinal: normoactive bowel sounds, no tenderness Integumentary: warm and dry (bruising noted to both upper and lower extremities) Neurologic: alert and oriented x3 Musculoskeletal: other (no edema to both lower extremities) Psychiatric: cooperative - Lab 05/23/17 05:53 05/23/17 05:53 Most recent lab results Calcium 8.5 mg/dL (8.4-10.2) 05/23/17 05:53 Phosphorus 4.60 mg/dL (2.5-4.5) H 05/23/17 05:53 Magnesium 2.20 mg/dL (1.7-2.3) 05/19/17 03:00
--- NOTE | 2017-05-23 18:55 | XRay Report ---
FINAL REPORT EXAM: XR CHEST ROUTINE 2V HISTORY: Pneumonia TECHNIQUE: Chest, portable PRIORS: 05/10/2017 FINDINGS: Left-sided central line is unchanged. There is no cardiomegaly. There is persistent but improved airspace disease in the lower left lung. There is mild elevation of the left hemidiaphragm. There is minimal right basilar airspace disease. Congestion has improved. There is no pneumothorax. There is no pleural effusion seen. IMPRESSION: Mildly elevated left hemidiaphragm. Improved but persistent atelectasis and or infiltrates in the lower lungs, left more than right.
[2017-05-24] MEDS: PROAMATINE PO SCH ×3 (03:18→19:01)
[2017-05-24] MEDS: TYLENOL PO PRN ×3 (03:27→23:21)
[2017-05-24] MEDS ORDERED: NACL 0.9% 100 ML IV PRN (06:00)
[2017-05-24] MEDS: NEURONTIN PO SCH ×3 (06:10→21:31)
[2017-05-24] MEDS: NOVOLOG SUB-Q SCH ×4 (07:30→22:46)
[2017-05-24] MEDS: PROVENTIL IH SCH ×3 (08:22→20:56)
--- NOTE | 2017-05-24 09:33 | Progress Note ---
Assessment and Plan Assessment and plan: --Sepsis: MRSA pneumonia,on Zyvox, per ID , contact isolation. tracheal aspirate positive for MRSA. Follow-up chest x-ray improved. Continue Midodrine 3 times a day. Pt still with leukocytosis --Leukocytosis; resolved . --Type 2 diabetes mellitus; Accu-Chek sliding scale coverage ADA diet, and long- acting 70/30 insulin --Acute on chronic respiratory failure; secondary to fluid overload/MRSA pneumonia, BiPAP as needed --Metabolic encephalopathy on admission; s/p intubation --Poor oral nutrition ; nutrition supplements --Coronary artery disease s/p PCI : Stable --Cardiomyopathy ejection fraction of 40% 04/2016 --End-stage renal disease on hemodialysis, HD per nephrology, cont. midodrine for BP support --Dyslipidemia; on lipid-lowering medications --DVT prophylaxis; SCD --Diarrhea resolved. Flagyl discontinued Cardiology, pulmonary and nephrology following Physical therapy occupational therapy DC planning. Case management History Interval history: no new issues overnight. Hospitalist Physical - Constitutional Vitals: Temp Pulse Resp BP Pulse Ox 97.6 F 78 18 80/46 98 05/24/17 07:54 05/24/17 07:54 05/24/17 07:54 05/24/17 07:54 05/24/17 07:54 General appearance: Present: no acute distress, well-nourished - EENT Eyes: Present: PERRL, EOM intact ENT: hearing intact, clear oral mucosa, dentition normal - Neck Neck: Present: supple, normal ROM - Respiratory Respiratory effort: normal Respiratory: bilateral: CTA - Cardiovascular Rhythm: regular Heart Sounds: Present: S1 & S2. Absent: gallop, rub - Extremities Extremities: no ischemia, No edema, Full ROM - Abdominal General gastrointestinal: soft, non-tender, non-distended, normal bowel sounds - Integumentary Integumentary: Present: clear, warm, dry - Neurologic Neurologic: CNII-XII intact, moves all extremities Results - Labs CBC & Chem 7: 05/23/17 05:53 05/23/17 05:53 Labs: Laboratory Last Values WBC 22.5 K/mm3 (4.5-11.0) H 05/23/17 05:53 RBC 3.49 M/mm3 (3.65-5.03) L 05/23/17 05:53 Hgb 11.4 gm/dl (10.1-14.3) 05/23/17 05:53 Hct 37.1 % (30.3-42.9) 05/23/17 05:53 MCV 106 fl (79-97) H 05/23/17 05:53 MCH 33 pg (28-32) H 05/23/17 05:53 MCHC 31 % (30-34) 05/23/17 05:53 RDW 23.1 % (13.2-15.2) H 05/23/17 05:53 Plt Count 307 K/mm3 (140-440) 05/23/17 05:53 Lymph % (Auto) 8.3 % (13.4-35.0) L 05/21/17 04:09 [place] % (Auto) 4.4 % (0.0-7.3) 05/21/17 04:09 Eos % (Auto) 0.0 % (0.0-4.3) 05/21/17 04:09 Baso % (Auto) 0.1 % (0.0-1.8) 05/21/17 04:09 Lymph # 1.1 K/mm3 (1.2-5.4) L 05/21/17 04:09 [place] # 0.6 K/mm3 (0.0-0.8) 05/21/17 04:09 Eos # 0.0 K/mm3 (0.0-0.4) 05/21/17 04:09 Baso # 0.0 K/mm3 (0.0-0.1) 05/21/17 04:09 Add Manual Diff Complete 05/20/17 05:00 Total Counted 100 05/20/17 05:00 Seg Neutrophils % 87.2 % (40.0-70.0) H 05/21/17 04:09 Seg Neuts % (Manual) 93.0 % (40.0-70.0) H 05/20/17 05:00 Band Neutrophils % 1.0 % 05/20/17 05:00 Lymphocytes % (Manual) 3.0 % (13.4-35.0) L 05/20/17 05:00 Reactive Lymphs % (Man) 0 % 05/20/17 05:00 Monocytes % (Manual) 3.0 % (0.0-7.3) 05/20/17 05:00 Eosinophils % (Manual) 0 % (0.0-4.3) 05/20/17 05:00 Basophils % (Manual) 0 % (0.0-1.8) 05/20/17 05:00 Metamyelocytes % 0 % 05/20/17 05:00 Myelocytes % 0 % 05/20/17 05:00 Promyelocytes % 0 % 05/20/17 05:00 Blast Cells % 0 % 05/20/17 05:00 Nucleated RBC % Not Reportable 05/20/17 05:00 Seg Neutrophils # 12.0 K/mm3 (1.8-7.7) H 05/21/17 04:09 Seg Neutrophils # Man 9.8 K/mm3 (1.8-7.7) H 05/20/17 05:00 Band Neutrophils # 0.1 K/mm3 05/20/17 05:00 Lymphocytes # (Manual) 0.3 K/mm3 (1.2-5.4) L 05/20/17 05:00 Abs React Lymphs (Man) 0.0 K/mm3 05/20/17 05:00 Monocytes # (Manual) 0.3 K/mm3 (0.0-0.8) 05/20/17 05:00 Eosinophils # (Manual) 0.0 K/mm3 (0.0-0.4) 05/20/17 05:00 Basophils # (Manual) 0.0 K/mm3 (0.0-0.1) 05/20/17 05:00 Metamyelocytes # 0.0 K/mm3 05/20/17 05:00 Myelocytes # 0.0 K/mm3 05/20/17 05:00 Promyelocytes # 0.0 K/mm3 05/20/17 05:00 Blast Cells # 0.0 K/mm3 05/20/17 05:00 WBC Morphology Not Reportable 05/20/17 05:00 Hypersegmented Neuts Not Reportable 05/20/17 05:00 Hyposegmented Neuts Not Reportable 05/20/17 05:00 Hypogranular Neuts Not Reportable 05/20/17 05:00 Smudge Cells Not Reportable 05/20/17 05:00 Toxic Granulation Not Reportable 05/20/17 05:00 Toxic Vacuolation Not Reportable 05/20/17 05:00 Dohle Bodies Not Reportable 05/20/17 05:00 Pelger-Huet Anomaly Not Reportable 05/20/17 05:00 Anthony Rods Not Reportable 05/20/17 05:00 Platelet Estimate Appears normal 05/20/17 05:00 Clumped Platelets Not Reportable 05/20/17 05:00 Plt Clumps, EDTA Not Reportable 05/20/17 05:00 Large Platelets Not Reportable 05/20/17 05:00 Giant Platelets Not Reportable 05/20/17 05:00 Platelet Satelliting Not Reportable 05/20/17 05:00 Plt Morphology Comment Not Reportable 05/20/17 05:00 RBC Morphology Not Reportable 05/20/17 05:00 Dimorphic RBCs Not Reportable 05/20/17 05:00 Polychromasia Few 05/20/17 05:00 Hypochromasia Not Reportable 05/20/17 05:00 Poikilocytosis Not Reportable 05/20/17 05:00 Anisocytosis 1+ 05/20/17 05:00 Microcytosis Not Reportable 05/20/17 05:00 Macrocytosis 1+ 05/20/17 05:00 Spherocytes Not Reportable 05/20/17 05:00 Pappenheimer Bodies Not Reportable 05/20/17 05:00 Sickle Cells Not Reportable 05/20/17 05:00 Target Cells Rare 05/20/17 05:00 Tear Drop Cells 1+ 05/20/17 05:00 Ovalocytes 1+ 05/20/17 05:00 Stomatocytes Few 05/20/17 05:00 Helmet Cells Not Reportable 05/20/17 05:00 Milligan-Perkins Bodies Not Reportable 05/20/17 05:00 [place] Rings Not Reportable 05/20/17 05:00 Anthony Cells Not Reportable 05/20/17 05:00 Bite Cells Not Reportable 05/20/17 05:00 Crenated Cell Not Reportable 05/20/17 05:00 Elliptocytes Rare 05/20/17 05:00 Acanthocytes (Spur) Not Reportable 05/20/17 05:00 Rouleaux Not Reportable 05/20/17 05:00 Hemoglobin C Crystals Not Reportable 05/20/17 05:00 Schistocytes Not Reportable 05/20/17 05:00 Malaria parasites Not Reportable 05/20/17 05:00 Jose Bodies Not Reportable 05/20/17 05:00 Hem Pathologist Commnt No 05/20/17 05:00 PT 14.4 Sec. (12.2-14.9) 05/17/17 04:45 INR 1.06 (0.87-1.13) 05/17/17 04:45 APTT 27.5 Sec. (24.2-36.6) 05/17/17 04:45 POC ABG pH 7.450 (7.35-7.45) 05/12/17 13:10 POC ABG pCO2 36.7 (35-45) 05/12/17 13:10 POC ABG pO2 66 (80-105) L 05/12/17 13:10 POC ABG HCO3 25.5 05/12/17 13:10 POC ABG Total CO2 27 05/12/17 13:10 POC ABG O2 Sat 94 05/12/17 13:10 POC ABG Base Excess 2 05/12/17 13:10 FiO2 25 % 05/12/17 13:10 Sodium 143 mmol/L (137-145) 05/23/17 05:53 Potassium 3.9 mmol/L (3.6-5.0) 05/23/17 05:53 Chloride 93.7 mmol/L (98-107) L 05/23/17 05:53 Carbon Dioxide 24 mmol/L (22-30) 05/23/17 05:53 Anion Gap 29 mmol/L 05/23/17 05:53 BUN 60 mg/dL (7-17) H 05/23/17 05:53 Creatinine 4.6 mg/dL (0.7-1.2) H 05/23/17 05:53 Estimated GFR 10 ml/min 05/23/17 05:53 BUN/Creatinine Ratio 13 % 05/23/17 05:53 Glucose 101 mg/dL (65-100) H 05/23/17 05:53 POC Glucose 119 (70-105) H 05/24/17 06:52 Hemoglobin A1c 5.5 % (4-6) 05/16/17 04:00 Lactic Acid 2.60 mmol/L (0.7-2.0) H* 05/12/17 16:05 Calcium 8.5 mg/dL (8.4-10.2) 05/23/17 05:53 Phosphorus 4.60 mg/dL (2.5-4.5) H 05/23/17 05:53 Magnesium 2.20 mg/dL (1.7-2.3) 05/19/17 03:00 Total Bilirubin 0.30 mg/dL (0.1-1.2) 05/21/17 04:09 AST 13 units/L (5-40) 05/21/17 04:09 ALT 19 units/L (7-56) 05/21/17 04:09 Alkaline Phosphatase 191 units/L (35-129) H 05/21/17 04:09 Ammonia 34.0 umol/L (25-60) 05/17/17 04:45 Total Creatine Kinase 24 units/L (30-135) L 05/09/17 14:00 CK-MB (CK-2) 2.2 ng/mL (0.0-4.0) 05/09/17 14:00 CK-MB (CK-2) Rel Index 9.1 (0-4) H 05/09/17 14:00 Troponin T 0.654 ng/mL (0.00-0.029) H* 05/09/17 14:00 C-Reactive Protein 14.70 mg/dL (0.00-1.30) H 05/15/17 12:15 Total Protein 7.1 g/dL (6.3-8.2) 05/21/17 04:09 Albumin 3.7 g/dL (3.9-5) L 05/21/17 04:09 Albumin/Globulin Ratio 1.1 % 05/21/17 04:09 Triglycerides 125 mg/dL (2-149) 05/09/17 06:00 Cholesterol 73 mg/dL (50-199) 05/09/17 06:00 LDL Cholesterol Direct 21 mg/dL (50-130) L 05/09/17 06:00 HDL Cholesterol 27 mg/dL (40-59) L 05/09/17 06:00 Cholesterol/HDL Ratio 2.70 % 05/09/17 06:00 Total Cortisol 35.2 mcg/dL () 05/15/17 12:15 Urine Color Yellow (Yellow) 05/08/17 Unknown Urine Turbidity Clear (Clear) 05/08/17 Unknown Urine pH 7.0 (5.0-7.0) 05/08/17 Unknown Ur Specific [place] 1.014 (1.003-1.030) 05/08/17 Unknown Urine Protein 100 mg/dl mg/dL (Negative) 05/08/17 Unknown Urine Glucose (UA) 150 mg/dL (Negative) 05/08/17 Unknown Urine Ketones Neg mg/dL (Negative) 05/08/17 Unknown Urine Blood Sm (Negative) 05/08/17 Unknown Urine Nitrite Neg (Negative) 05/08/17 Unknown Urine Bilirubin Neg (Negative) 05/08/17 Unknown Urine Urobilinogen < 2.0 mg/dL (<2.0) 05/08/17 Unknown Ur Leukocyte Esterase Tr (Negative) 05/08/17 Unknown Urine WBC (Auto) 16.0 /HPF (0.0-6.0) H 05/08/17 Unknown Urine RBC (Auto) 3.0 /HPF (0.0-6.0) 05/08/17 Unknown U Epithel Cells (Auto) < 1.0 /HPF (0-13.0) 05/08/17 Unknown Urine Bacteria (Auto) 1+ /HPF (Negative) 05/08/17 Unknown Salicylates < 0.3 mg/dL (2.8-20.0) L 05/08/17 21:35 Acetaminophen < 15.0 ug/mL (10.0-30.0) 05/08/17 21:35 Hepatitis A IgM Ab Non-reactive (NonReactive) 05/09/17 17:00 Hep Bs Antigen Non-reactive (Negative) 05/09/17 17:00 Hep B Core IgM Ab Non-reactive (NonReactive) 05/09/17 17:00 Hepatitis C Antibody Reactive (NonReactive) A 05/09/17 17:00
[2017-05-24] MEDS: BABY ASPIRIN PO SCH (10:00)
[2017-05-24] MEDS: ZOLOFT PO SCH (10:00)
[2017-05-24] MEDS: HEPARIN SUB-Q SCH ×2 (10:00→21:31)
[2017-05-24] MEDS: HABITROL TD SCH (10:00)
[2017-05-24] MEDS: SENSIPAR PO SCH ×2 (10:00→21:31)
[2017-05-24] MEDS: RENVELA PO SCH ×3 (12:00→16:15)
--- NOTE | 2017-05-24 14:45 | Progress Note ---
Assessment and Plan 56 y/o female with acute respiratory failure, most likely secondary to volume overload and altered mental status, exact etiology unknown, now with persistent hypotension of unknown etiology, now resolved. MRSA pneumonia with increasing WBC. Persistent infiltrate left lower lobe 1. Continue TID Midodrine 2. Continue supplemental O2, wean for sats >88%. Not sure if patient wears home o2 3. OOB to chair, PT/OT 4. Monitor off antibiotics 5. Periodic chest x-ray until infiltrate clear Subjective Date of service: 05/24/17 Principal diagnosis: MRSA pneumonia, shock,sepsis,ESRD Interval history: Patient seems to doing well. Denied any new complaints. Wants to go home Objective Vital Signs - 12hr 05/24/17 05/24/17 05/24/17 05:01 07:54 08:22 Temperature 97.9 F 97.6 F Pulse Rate 86 78 Pulse Rate [ 78 Anterior Bilateral Throughout] Respiratory 16 18 Rate Respiratory 18 Rate [Anterior Bilateral Throughout] Blood Pressure 98/57 80/46 O2 Sat by Pulse 93 98 100 Oximetry 05/24/17 05/24/17 05/24/17 08:32 10:00 10:15 Temperature 97.8 F Pulse Rate 80 78 Pulse Rate [ 83 Anterior Bilateral Throughout] Respiratory 18 Rate Respiratory 18 Rate [Anterior Bilateral Throughout] Blood Pressure 98/53 94/47 O2 Sat by Pulse Oximetry 05/24/17 05/24/17 05/24/17 10:33 10:49 11:01 Temperature Pulse Rate 118 H 82 82 Pulse Rate [ Anterior Bilateral Throughout] Respiratory Rate Respiratory Rate [Anterior Bilateral Throughout] Blood Pressure 96/33 79/44 76/44 O2 Sat by Pulse Oximetry 05/24/17 05/24/17 05/24/17 11:15 11:31 11:45 Temperature Pulse Rate 83 81 92 H Pulse Rate [ Anterior Bilateral Throughout] Respiratory Rate Respiratory Rate [Anterior Bilateral Throughout] Blood Pressure 105/36 88/43 113/52 O2 Sat by Pulse Oximetry 05/24/17 05/24/17 05/24/17 12:03 12:15 12:33 Temperature Pulse Rate 81 81 85 Pulse Rate [ Anterior Bilateral Throughout] Respiratory Rate Respiratory Rate [Anterior Bilateral Throughout] Blood Pressure 93/46 95/54 89/45 O2 Sat by Pulse Oximetry 05/24/17 05/24/17 05/24/17 12:49 12:52 13:05 Temperature Pulse Rate 88 84 87 Pulse Rate [ Anterior Bilateral Throughout] Respiratory Rate Respiratory Rate [Anterior Bilateral Throughout] Blood Pressure 81/41 86/49 78/45 O2 Sat by Pulse Oximetry 05/24/17 05/24/17 05/24/17 13:13 13:30 13:45 Temperature 97.8 F Pulse Rate 74 80 80 Pulse Rate [ Anterior Bilateral Throughout] Respiratory 18 Rate Respiratory Rate [Anterior Bilateral Throughout] Blood Pressure 105/42 81/43 81/43 O2 Sat by Pulse Oximetry Constitutional: no acute distress, alert ENT: oropharynx moist Neck: supple Effort: normal Ascultation: Bilateral: clear, diminished breath sounds, wheezes (few expiratory bilaterally), rales, rhonchi (few bilaterally) Percussion: Bilateral: not dull Cardiovascular: regular rate and rhythm (no mrg) Gastrointestinal: normoactive bowel sounds, soft, non-tender Integumentary: other (Patsy left-sided face) Extremities: no cyanosis, no edema Neurologic: normal mental status, non-focal exam, pupils equal and round, CN II- XII normal, motor strength normal and Psychiatric: mood appropriate, affect normal CBC and BMP: 05/23/17 05:53 05/23/17 05:53 ABG, PT/INR, D-dimer: ABG POC ABG pH 7.450 (7.35-7.45) 05/12/17 13:10 POC ABG pCO2 36.7 (35-45) 05/12/17 13:10 POC ABG pO2 66 (80-105) L 05/12/17 13:10 POC ABG HCO3 25.5 05/12/17 13:10 POC ABG Total CO2 27 05/12/17 13:10 POC ABG O2 Sat 94 05/12/17 13:10 PT/INR, D-dimer PT 14.4 Sec. (12.2-14.9) 05/17/17 04:45 INR 1.06 (0.87-1.13) 05/17/17 04:45 Abnormal lab findings: Abnormal Labs 05/08/17 05/08/17 05/08/17 21:25 21:25 21:25 WBC RBC 2.55 L Hgb 8.9 L Hct 28.1 L MCV 111 H MCH 35 H RDW 25.4 H Lymph % (Auto) [place] % (Auto) Lymph # [place] # Baso # Seg Neutrophils % Seg Neuts % (Manual) 92.0 H Lymphocytes % (Manual) 6.0 L Monocytes % (Manual) Nucleated RBC % Seg Neutrophils # Seg Neutrophils # Man 9.3 H Lymphocytes # (Manual) 0.6 L Monocytes # (Manual) PT 15.2 H INR 1.14 H POC ABG pH POC ABG pCO2 POC ABG pO2 Sodium Potassium Chloride Carbon Dioxide BUN Creatinine Glucose POC Glucose Lactic Acid 2.50 H* Calcium Phosphorus AST ALT Alkaline Phosphatase Total Creatine Kinase CK-MB (CK-2) Rel Index Troponin T C-Reactive Protein Total Protein Albumin LDL Cholesterol Direct HDL Cholesterol Urine WBC (Auto) Salicylates Hepatitis C Antibody 05/08/17 05/08/17 05/08/17 21:35 22:04 22:42 WBC RBC Hgb Hct MCV MCH RDW Lymph % (Auto) [place] % (Auto) Lymph # [place] # Baso # Seg Neutrophils % Seg Neuts % (Manual) Lymphocytes % (Manual) Monocytes % (Manual) Nucleated RBC % Seg Neutrophils # Seg Neutrophils # Man Lymphocytes # (Manual) Monocytes # (Manual) PT INR POC ABG pH 7.271 L POC ABG pCO2 56.5 H POC ABG pO2 30 L Sodium Potassium Chloride 107.8 H Carbon Dioxide BUN 22 H Creatinine 2.6 H Glucose 202 H POC Glucose Lactic Acid Calcium 7.3 L Phosphorus AST ALT Alkaline Phosphatase 258 H Total Creatine Kinase CK-MB (CK-2) Rel Index Troponin T C-Reactive Protein Total Protein 5.2 L Albumin 2.9 L LDL Cholesterol Direct HDL Cholesterol Urine WBC (Auto) Salicylates < 0.3 L Hepatitis C Antibody 05/08/17 05/09/17 05/09/17 Unknown 00:24 06:00 WBC RBC Hgb Hct MCV MCH RDW Lymph % (Auto) [place] % (Auto) Lymph # [place] # Baso # Seg Neutrophils % Seg Neuts % (Manual) Lymphocytes % (Manual) Monocytes % (Manual) Nucleated RBC % Seg Neutrophils # Seg Neutrophils # Man Lymphocytes # (Manual) Monocytes # (Manual) PT INR POC ABG pH 7.283 L POC ABG pCO2 49.9 H POC ABG pO2 249 H Sodium Potassium Chloride Carbon Dioxide BUN Creatinine Glucose POC Glucose Lactic Acid Calcium Phosphorus AST ALT Alkaline Phosphatase Total Creatine Kinase 19 L CK-MB (CK-2) Rel Index 11.0 H Troponin T 0.612 H* C-Reactive Protein Total Protein Albumin LDL Cholesterol Direct 21 L HDL Cholesterol 27 L Urine WBC (Auto) 16.0 H Salicylates Hepatitis C Antibody 05/09/17 05/09/17 05/09/17 06:00 06:00 08:52 WBC 11.7 H RBC 2.67 L Hgb 9.3 L Hct 30.0 L MCV 112 H MCH 35 H RDW 24.4 H Lymph % (Auto) [place] % (Auto) Lymph # [place] # Baso # Seg Neutrophils % Seg Neuts % (Manual) Lymphocytes % (Manual) Monocytes % (Manual) Nucleated RBC % Seg Neutrophils # Seg Neutrophils # Man Lymphocytes # (Manual) Monocytes # (Manual) PT INR POC ABG pH 7.323 L POC ABG pCO2 POC ABG pO2 143 H Sodium Potassium Chloride Carbon Dioxide BUN 24 H Creatinine 2.9 H Glucose 172 H POC Glucose Lactic Acid Calcium 7.7 L Phosphorus AST ALT Alkaline Phosphatase Total Creatine Kinase CK-MB (CK-2) Rel Index Troponin T C-Reactive Protein Total Protein Albumin LDL Cholesterol Direct HDL Cholesterol Urine WBC (Auto) Salicylates Hepatitis C Antibody 05/09/17 05/09/17 05/11/17 14:00 17:00 06:09 WBC 11.4 H RBC 2.66 L Hgb 9.1 L Hct 29.3 L MCV 110 H MCH 34 H RDW 23.1 H Lymph % (Auto) 4.2 L [place] % (Auto) 12.7 H Lymph # 0.5 L [place] # 1.4 H Baso # Seg Neutrophils % 82.5 H Seg Neuts % (Manual) Lymphocytes % (Manual) Monocytes % (Manual) Nucleated RBC % Seg Neutrophils # 9.4 H Seg Neutrophils # Man Lymphocytes # (Manual) Monocytes # (Manual) PT INR POC ABG pH POC ABG pCO2 POC ABG pO2 Sodium Potassium Chloride Carbon Dioxide BUN Creatinine Glucose POC Glucose Lactic Acid Calcium Phosphorus AST ALT Alkaline Phosphatase Total Creatine Kinase 24 L CK-MB (CK-2) Rel Index 9.1 H Troponin T 0.654 H* C-Reactive Protein Total Protein Albumin LDL Cholesterol Direct HDL Cholesterol Urine WBC (Auto) Salicylates Hepatitis C Antibody Reactive A 05/11/17 05/11/17 05/11/17 06:09 08:20 11:34 WBC RBC Hgb Hct MCV MCH RDW Lymph % (Auto) [place] % (Auto) Lymph # [place] # Baso # Seg Neutrophils % Seg Neuts % (Manual) Lymphocytes % (Manual) Monocytes % (Manual) Nucleated RBC % Seg Neutrophils # Seg Neutrophils # Man Lymphocytes # (Manual) Monocytes # (Manual) PT INR POC ABG pH POC ABG pCO2 POC ABG pO2 Sodium Potassium Chloride 95.6 L Carbon Dioxide 20 L BUN 24 H Creatinine 3.4 H Glucose 134 H POC Glucose 154 H 149 H Lactic Acid Calcium Phosphorus AST ALT Alkaline Phosphatase Total Creatine Kinase CK-MB (CK-2) Rel Index Troponin T C-Reactive Protein Total Protein Albumin LDL Cholesterol Direct HDL Cholesterol Urine WBC (Auto) Salicylates Hepatitis C Antibody 05/11/17 05/11/17 05/11/17 15:30 16:27 21:58 WBC RBC Hgb Hct MCV MCH RDW Lymph % (Auto) [place] % (Auto) Lymph # [place] # Baso # Seg Neutrophils % Seg Neuts % (Manual) Lymphocytes % (Manual) Monocytes % (Manual) Nucleated RBC % Seg Neutrophils # Seg Neutrophils # Man Lymphocytes # (Manual) Monocytes # (Manual) PT INR POC ABG pH POC ABG pCO2 POC ABG pO2 Sodium Potassium Chloride Carbon Dioxide BUN Creatinine Glucose POC Glucose 163 H 199 H Lactic Acid Calcium Phosphorus AST ALT Alkaline Phosphatase Total Creatine Kinase CK-MB (CK-2) Rel Index Troponin T C-Reactive Protein 44.70 H Total Protein Albumin LDL Cholesterol Direct HDL Cholesterol Urine WBC (Auto) Salicylates Hepatitis C Antibody 05/12/17 05/12/17 05/12/17 08:42 13:10 14:10 WBC RBC Hgb Hct MCV MCH RDW Lymph % (Auto) [place] % (Auto) Lymph # [place] # Baso # Seg Neutrophils % Seg Neuts % (Manual) Lymphocytes % (Manual) Monocytes % (Manual) Nucleated RBC % Seg Neutrophils # Seg Neutrophils # Man Lymphocytes # (Manual) Monocytes # (Manual) PT INR POC ABG pH POC ABG pCO2 POC ABG pO2 66 L Sodium Potassium Chloride Carbon Dioxide BUN Creatinine Glucose POC Glucose 190 H 162 H Lactic Acid Calcium Phosphorus AST ALT Alkaline Phosphatase Total Creatine Kinase CK-MB (CK-2) Rel Index Troponin T C-Reactive Protein Total Protein Albumin LDL Cholesterol Direct HDL Cholesterol Urine WBC (Auto) Salicylates Hepatitis C Antibody 05/12/17 05/12/17 05/12/17 15:46 16:05 21:42 WBC RBC Hgb Hct MCV MCH RDW Lymph % (Auto) [place] % (Auto) Lymph # [place] # Baso # Seg Neutrophils % Seg Neuts % (Manual) Lymphocytes % (Manual) Monocytes % (Manual) Nucleated RBC % Seg Neutrophils # Seg Neutrophils # Man Lymphocytes # (Manual) Monocytes # (Manual) PT INR POC ABG pH POC ABG pCO2 POC ABG pO2 Sodium Potassium Chloride Carbon Dioxide BUN Creatinine Glucose POC Glucose 153 H 153 H Lactic Acid 2.60 H* Calcium Phosphorus AST ALT Alkaline Phosphatase Total Creatine Kinase CK-MB (CK-2) Rel Index Troponin T C-Reactive Protein Total Protein Albumin LDL Cholesterol Direct HDL Cholesterol Urine WBC (Auto) Salicylates Hepatitis C Antibody 05/13/17 05/13/17 05/13/17 05:12 05:30 05:30 WBC 22.0 H RBC 3.02 L Hgb 9.9 L Hct MCV 105 H MCH 33 H RDW 22.9 H Lymph % (Auto) [place] % (Auto) Lymph # [place] # Baso # Seg Neutrophils % Seg Neuts % (Manual) 89.0 H Lymphocytes % (Manual) 6.0 L Monocytes % (Manual) Nucleated RBC % 1.0 H Seg Neutrophils # Seg Neutrophils # Man 19.6 H Lymphocytes # (Manual) Monocytes # (Manual) 0.9 H PT INR POC ABG pH POC ABG pCO2 POC ABG pO2 Sodium Potassium Chloride 90.8 L Carbon Dioxide 21 L BUN 28 H Creatinine 3.1 H Glucose 172 H POC Glucose 182 H Lactic Acid Calcium Phosphorus AST ALT Alkaline Phosphatase Total Creatine Kinase CK-MB (CK-2) Rel Index Troponin T C-Reactive Protein Total Protein Albumin LDL Cholesterol Direct HDL Cholesterol Urine WBC (Auto) Salicylates Hepatitis C Antibody 05/13/17 05/13/17 05/13/17 11:52 18:01 23:31 WBC RBC Hgb Hct MCV MCH RDW Lymph % (Auto) [place] % (Auto) Lymph # [place] # Baso # Seg Neutrophils % Seg Neuts % (Manual) Lymphocytes % (Manual) Monocytes % (Manual) Nucleated RBC % Seg Neutrophils # Seg Neutrophils # Man Lymphocytes # (Manual) Monocytes # (Manual) PT INR POC ABG pH POC ABG pCO2 POC ABG pO2 Sodium Potassium Chloride Carbon Dioxide BUN Creatinine Glucose POC Glucose 185 H 216 H 281 H Lactic Acid Calcium Phosphorus AST ALT Alkaline Phosphatase Total Creatine Kinase CK-MB (CK-2) Rel Index Troponin T C-Reactive Protein Total Protein Albumin LDL Cholesterol Direct HDL Cholesterol Urine WBC (Auto) Salicylates Hepatitis C Antibody 05/14/17 05/14/17 05/14/17 05:43 06:10 06:10 WBC 19.6 H RBC 3.61 L Hgb Hct MCV 104 H MCH 34 H RDW 23.4 H Lymph % (Auto) 8.6 L [place] % (Auto) Lymph # [place] # 1.3 H Baso # 0.2 H Seg Neutrophils % 82.5 H Seg Neuts % (Manual) Lymphocytes % (Manual) Monocytes % (Manual) Nucleated RBC % Seg Neutrophils # 16.2 H Seg Neutrophils # Man Lymphocytes # (Manual) Monocytes # (Manual) PT INR POC ABG pH POC ABG pCO2 POC ABG pO2 Sodium Potassium 3.4 L Chloride 89.1 L Carbon Dioxide BUN 32 H Creatinine 3.0 H Glucose 224 H POC Glucose 215 H Lactic Acid Calcium Phosphorus AST 85 H ALT 162 H Alkaline Phosphatase 347 H Total Creatine Kinase CK-MB (CK-2) Rel Index Troponin T C-Reactive Protein Total Protein 8.5 H Albumin LDL Cholesterol Direct HDL Cholesterol Urine WBC (Auto) Salicylates Hepatitis C Antibody 05/14/17 05/14/17 05/14/17 08:32 11:26 16:42 WBC RBC Hgb Hct MCV MCH RDW Lymph % (Auto) [place] % (Auto) Lymph # [place] # Baso # Seg Neutrophils % Seg Neuts % (Manual) Lymphocytes % (Manual) Monocytes % (Manual) Nucleated RBC % Seg Neutrophils # Seg Neutrophils # Man Lymphocytes # (Manual) Monocytes # (Manual) PT INR POC ABG pH POC ABG pCO2 POC ABG pO2 Sodium Potassium Chloride Carbon Dioxide BUN Creatinine Glucose POC Glucose 204 H 182 H 310 H Lactic Acid Calcium Phosphorus AST ALT Alkaline Phosphatase Total Creatine Kinase CK-MB (CK-2) Rel Index Troponin T C-Reactive Protein Total Protein Albumin LDL Cholesterol Direct HDL Cholesterol Urine WBC (Auto) Salicylates Hepatitis C Antibody 05/14/17 05/15/17 05/15/17 23:00 03:45 03:45 WBC 18.3 H RBC 3.42 L Hgb Hct MCV 105 H MCH 34 H RDW 23.0 H Lymph % (Auto) 10.4 L [place] % (Auto) 7.7 H Lymph # [place] # 1.4 H Baso # Seg Neutrophils % 79.5 H Seg Neuts % (Manual) Lymphocytes % (Manual) Monocytes % (Manual) Nucleated RBC % Seg Neutrophils # 14.6 H Seg Neutrophils # Man Lymphocytes # (Manual) Monocytes # (Manual) PT INR POC ABG pH POC ABG pCO2 POC ABG pO2 Sodium 132 L Potassium Chloride 88.4 L Carbon Dioxide BUN 29 H Creatinine 2.8 H Glucose 310 H POC Glucose 264 H Lactic Acid Calcium Phosphorus AST 54 H ALT 111 H Alkaline Phosphatase 318 H Total Creatine Kinase CK-MB (CK-2) Rel Index Troponin T C-Reactive Protein Total Protein Albumin 3.7 L LDL Cholesterol Direct HDL Cholesterol Urine WBC (Auto) Salicylates Hepatitis C Antibody 05/15/17 05/15/17 05/15/17 07:36 12:14 12:15 WBC RBC Hgb Hct MCV MCH RDW Lymph % (Auto) [place] % (Auto) Lymph # [place] # Baso # Seg Neutrophils % Seg Neuts % (Manual) Lymphocytes % (Manual) Monocytes % (Manual) Nucleated RBC % Seg Neutrophils # Seg Neutrophils # Man Lymphocytes # (Manual) Monocytes # (Manual) PT INR POC ABG pH POC ABG pCO2 POC ABG pO2 Sodium Potassium Chloride Carbon Dioxide BUN Creatinine Glucose POC Glucose 253 H > 500 H Lactic Acid Calcium Phosphorus AST ALT Alkaline Phosphatase Total Creatine Kinase CK-MB (CK-2) Rel Index Troponin T C-Reactive Protein 14.70 H Total Protein Albumin LDL Cholesterol Direct HDL Cholesterol Urine WBC (Auto) Salicylates Hepatitis C Antibody 05/15/17 05/15/17 05/15/17 12:15 15:43 22:26 WBC RBC Hgb Hct MCV MCH RDW Lymph % (Auto) [place] % (Auto) Lymph # [place] # Baso # Seg Neutrophils % Seg Neuts % (Manual) Lymphocytes % (Manual) Monocytes % (Manual) Nucleated RBC % Seg Neutrophils # Seg Neutrophils # Man Lymphocytes # (Manual) Monocytes # (Manual) PT INR POC ABG pH POC ABG pCO2 POC ABG pO2 Sodium Potassium Chloride Carbon Dioxide BUN Creatinine Glucose 336 H POC Glucose 288 H 243 H Lactic Acid Calcium Phosphorus AST ALT Alkaline Phosphatase Total Creatine Kinase CK-MB (CK-2) Rel Index Troponin T C-Reactive Protein Total Protein Albumin LDL Cholesterol Direct HDL Cholesterol Urine WBC (Auto) Salicylates Hepatitis C Antibody 05/16/17 05/16/17 05/16/17 04:00 04:00 07:26 WBC 23.5 H RBC 3.25 L Hgb Hct MCV 106 H MCH 33 H RDW 23.2 H Lymph % (Auto) [place] % (Auto) Lymph # [place] # Baso # Seg Neutrophils % Seg Neuts % (Manual) Lymphocytes % (Manual) 9.0 L Monocytes % (Manual) 14.0 H Nucleated RBC % Seg Neutrophils # Seg Neutrophils # Man 15.3 H Lymphocytes # (Manual) Monocytes # (Manual) 3.3 H PT INR POC ABG pH POC ABG pCO2 POC ABG pO2 Sodium Potassium Chloride 91.5 L Carbon Dioxide BUN 48 H Creatinine 4.5 H D Glucose POC Glucose 107 H Lactic Acid Calcium Phosphorus AST ALT Alkaline Phosphatase Total Creatine Kinase CK-MB (CK-2) Rel Index Troponin T C-Reactive Protein Total Protein Albumin LDL Cholesterol Direct HDL Cholesterol Urine WBC (Auto) Salicylates Hepatitis C Antibody 05/16/17 05/16/17 05/16/17 11:57 17:14 21:30 WBC RBC Hgb Hct MCV MCH RDW Lymph % (Auto) [place] % (Auto) Lymph # [place] # Baso # Seg Neutrophils % Seg Neuts % (Manual) Lymphocytes % (Manual) Monocytes % (Manual) Nucleated RBC % Seg Neutrophils # Seg Neutrophils # Man Lymphocytes # (Manual) Monocytes # (Manual) PT INR POC ABG pH POC ABG pCO2 POC ABG pO2 Sodium Potassium Chloride Carbon Dioxide BUN Creatinine Glucose POC Glucose 190 H 200 H 152 H Lactic Acid Calcium Phosphorus AST ALT Alkaline Phosphatase Total Creatine Kinase CK-MB (CK-2) Rel Index Troponin T C-Reactive Protein Total Protein Albumin LDL Cholesterol Direct HDL Cholesterol Urine WBC (Auto) Salicylates Hepatitis C Antibody 05/17/17 05/17/17 05/17/17 04:45 04:45 08:20 WBC 16.7 H RBC 3.08 L Hgb Hct MCV 106 H MCH 33 H RDW 23.3 H Lymph % (Auto) 3.8 L [place] % (Auto) Lymph # 0.6 L [place] # 1.1 H Baso # 0.2 H Seg Neutrophils % 87.5 H Seg Neuts % (Manual) Lymphocytes % (Manual) Monocytes % (Manual) Nucleated RBC % Seg Neutrophils # 14.6 H Seg Neutrophils # Man Lymphocytes # (Manual) Monocytes # (Manual) PT INR POC ABG pH POC ABG pCO2 POC ABG pO2 Sodium 134 L Potassium Chloride 89.3 L Carbon Dioxide 21 L BUN 60 H Creatinine 6.1 H Glucose POC Glucose 107 H Lactic Acid Calcium Phosphorus AST ALT Alkaline Phosphatase 226 H Total Creatine Kinase CK-MB (CK-2) Rel Index Troponin T C-Reactive Protein Total Protein Albumin 3.5 L LDL Cholesterol Direct HDL Cholesterol Urine WBC (Auto) Salicylates Hepatitis C Antibody 05/17/17 05/17/17 05/17/17 11:24 16:24 21:34 WBC RBC Hgb Hct MCV MCH RDW Lymph % (Auto) [place] % (Auto) Lymph # [place] # Baso # Seg Neutrophils % Seg Neuts % (Manual) Lymphocytes % (Manual) Monocytes % (Manual) Nucleated RBC % Seg Neutrophils # Seg Neutrophils # Man Lymphocytes # (Manual) Monocytes # (Manual) PT INR POC ABG pH POC ABG pCO2 POC ABG pO2 Sodium Potassium Chloride Carbon Dioxide BUN Creatinine Glucose POC Glucose 172 H 116 H 182 H Lactic Acid Calcium Phosphorus AST ALT Alkaline Phosphatase Total Creatine Kinase CK-MB (CK-2) Rel Index Troponin T C-Reactive Protein Total Protein Albumin LDL Cholesterol Direct HDL Cholesterol Urine WBC (Auto) Salicylates Hepatitis C Antibody 05/18/17 05/18/17 05/18/17 05:06 08:01 11:32 WBC RBC Hgb Hct MCV MCH RDW Lymph % (Auto) [place] % (Auto) Lymph # [place] # Baso # Seg Neutrophils % Seg Neuts % (Manual) Lymphocytes % (Manual) Monocytes % (Manual) Nucleated RBC % Seg Neutrophils # Seg Neutrophils # Man Lymphocytes # (Manual) Monocytes # (Manual) PT INR POC ABG pH POC ABG pCO2 POC ABG pO2 Sodium Potassium Chloride Carbon Dioxide BUN Creatinine Glucose POC Glucose 153 H 145 H 247 H Lactic Acid Calcium Phosphorus AST ALT Alkaline Phosphatase Total Creatine Kinase CK-MB (CK-2) Rel Index Troponin T C-Reactive Protein Total Protein Albumin LDL Cholesterol Direct HDL Cholesterol Urine WBC (Auto) Salicylates Hepatitis C Antibody 05/18/17 05/18/17 05/19/17 16:09 22:17 03:00 WBC RBC 2.88 L Hgb 9.8 L Hct 30.2 L MCV 105 H MCH 34 H RDW 23.6 H Lymph % (Auto) 7.1 L [place] % (Auto) Lymph # 0.5 L [place] # Baso # Seg Neutrophils % 86.5 H Seg Neuts % (Manual) Lymphocytes % (Manual) Monocytes % (Manual) Nucleated RBC % Seg Neutrophils # Seg Neutrophils # Man Lymphocytes # (Manual) Monocytes # (Manual) PT INR POC ABG pH POC ABG pCO2 POC ABG pO2 Sodium Potassium Chloride Carbon Dioxide BUN Creatinine Glucose POC Glucose 237 H 162 H Lactic Acid Calcium Phosphorus AST ALT Alkaline Phosphatase Total Creatine Kinase CK-MB (CK-2) Rel Index Troponin T C-Reactive Protein Total Protein Albumin LDL Cholesterol Direct HDL Cholesterol Urine WBC (Auto) Salicylates Hepatitis C Antibody 05/19/17 05/19/17 05/19/17 03:00 07:19 21:30 WBC RBC Hgb Hct MCV MCH RDW Lymph % (Auto) [place] % (Auto) Lymph # [place] # Baso # Seg Neutrophils % Seg Neuts % (Manual) Lymphocytes % (Manual) Monocytes % (Manual) Nucleated RBC % Seg Neutrophils # Seg Neutrophils # Man Lymphocytes # (Manual) Monocytes # (Manual) PT INR POC ABG pH POC ABG pCO2 POC ABG pO2 Sodium 136 L Potassium Chloride 90.1 L Carbon Dioxide BUN 49 H Creatinine 4.8 H Glucose 126 H POC Glucose 128 H 145 H Lactic Acid Calcium Phosphorus AST ALT Alkaline Phosphatase Total Creatine Kinase CK-MB (CK-2) Rel Index Troponin T C-Reactive Protein Total Protein Albumin LDL Cholesterol Direct HDL Cholesterol Urine WBC (Auto) Salicylates Hepatitis C Antibody 05/20/17 05/20/17 05/20/17 05:00 05:00 07:34 WBC RBC 3.12 L Hgb Hct MCV 106 H MCH 33 H RDW 23.7 H Lymph % (Auto) [place] % (Auto) Lymph # [place] # Baso # Seg Neutrophils % Seg Neuts % (Manual) 93.0 H Lymphocytes % (Manual) 3.0 L Monocytes % (Manual) Nucleated RBC % Seg Neutrophils # Seg Neutrophils # Man 9.8 H Lymphocytes # (Manual) 0.3 L Monocytes # (Manual) PT INR POC ABG pH POC ABG pCO2 POC ABG pO2 Sodium Potassium Chloride 95.5 L Carbon Dioxide BUN 29 H Creatinine 2.9 H Glucose 167 H POC Glucose 182 H Lactic Acid Calcium Phosphorus AST ALT Alkaline Phosphatase 195 H Total Creatine Kinase CK-MB (CK-2) Rel Index Troponin T C-Reactive Protein Total Protein Albumin 3.6 L LDL Cholesterol Direct HDL Cholesterol Urine WBC (Auto) Salicylates Hepatitis C Antibody 05/20/17 05/20/17 05/20/17 11:33 15:52 22:59 WBC RBC Hgb Hct MCV MCH RDW Lymph % (Auto) [place] % (Auto) Lymph # [place] # Baso # Seg Neutrophils % Seg Neuts % (Manual) Lymphocytes % (Manual) Monocytes % (Manual) Nucleated RBC % Seg Neutrophils # Seg Neutrophils # Man Lymphocytes # (Manual) Monocytes # (Manual) PT INR POC ABG pH POC ABG pCO2 POC ABG pO2 Sodium Potassium Chloride Carbon Dioxide BUN Creatinine Glucose POC Glucose 206 H 164 H 121 H Lactic Acid Calcium Phosphorus AST ALT Alkaline Phosphatase Total Creatine Kinase CK-MB (CK-2) Rel Index Troponin T C-Reactive Protein Total Protein Albumin LDL Cholesterol Direct HDL Cholesterol Urine WBC (Auto) Salicylates Hepatitis C Antibody 05/21/17 05/21/17 05/21/17 04:09 04:09 12:35 WBC 13.8 H RBC 3.32 L Hgb Hct MCV 106 H MCH 34 H RDW 23.7 H Lymph % (Auto) 8.3 L [place] % (Auto) Lymph # 1.1 L [place] # Baso # Seg Neutrophils % 87.2 H Seg Neuts % (Manual) Lymphocytes % (Manual) Monocytes % (Manual) Nucleated RBC % Seg Neutrophils # 12.0 H Seg Neutrophils # Man Lymphocytes # (Manual) Monocytes # (Manual) PT INR POC ABG pH POC ABG pCO2 POC ABG pO2 Sodium Potassium Chloride 90.6 L Carbon Dioxide BUN 59 H Creatinine 4.1 H Glucose 112 H POC Glucose 128 H Lactic Acid Calcium 8.2 L Phosphorus AST ALT Alkaline Phosphatase 191 H Total Creatine Kinase CK-MB (CK-2) Rel Index Troponin T C-Reactive Protein Total Protein Albumin 3.7 L LDL Cholesterol Direct HDL Cholesterol Urine WBC (Auto) Salicylates Hepatitis C Antibody 05/21/17 05/21/17 05/22/17 16:35 21:35 06:18 WBC RBC Hgb Hct MCV MCH RDW Lymph % (Auto) [place] % (Auto) Lymph # [place] # Baso # Seg Neutrophils % Seg Neuts % (Manual) Lymphocytes % (Manual) Monocytes % (Manual) Nucleated RBC % Seg Neutrophils # Seg Neutrophils # Man Lymphocytes # (Manual) Monocytes # (Manual) PT INR POC ABG pH POC ABG pCO2 POC ABG pO2 Sodium Potassium Chloride Carbon Dioxide BUN Creatinine Glucose POC Glucose 116 H 121 H 132 H Lactic Acid Calcium Phosphorus AST ALT Alkaline Phosphatase Total Creatine Kinase CK-MB (CK-2) Rel Index Troponin T C-Reactive Protein Total Protein Albumin LDL Cholesterol Direct HDL Cholesterol Urine WBC (Auto) Salicylates Hepatitis C Antibody 05/22/17 05/23/17 05/23/17 11:52 05:53 05:53 WBC 22.5 H RBC 3.49 L Hgb Hct MCV 106 H MCH 33 H RDW 23.1 H Lymph % (Auto) [place] % (Auto) Lymph # [place] # Baso # Seg Neutrophils % Seg Neuts % (Manual) Lymphocytes % (Manual) Monocytes % (Manual) Nucleated RBC % Seg Neutrophils # Seg Neutrophils # Man Lymphocytes # (Manual) Monocytes # (Manual) PT INR POC ABG pH POC ABG pCO2 POC ABG pO2 Sodium Potassium Chloride 93.7 L Carbon Dioxide BUN 60 H Creatinine 4.6 H Glucose 101 H POC Glucose 133 H Lactic Acid Calcium Phosphorus 4.60 H AST ALT Alkaline Phosphatase Total Creatine Kinase CK-MB (CK-2) Rel Index Troponin T C-Reactive Protein Total Protein Albumin LDL Cholesterol Direct HDL Cholesterol Urine WBC (Auto) Salicylates Hepatitis C Antibody 05/23/17 05/24/17 05/24/17 21:35 06:52 12:10 WBC RBC Hgb Hct MCV MCH RDW Lymph % (Auto) [place] % (Auto) Lymph # [place] # Baso # Seg Neutrophils % Seg Neuts % (Manual) Lymphocytes % (Manual) Monocytes % (Manual) Nucleated RBC % Seg Neutrophils # Seg Neutrophils # Man Lymphocytes # (Manual) Monocytes # (Manual) PT INR POC ABG pH POC ABG pCO2 POC ABG pO2 Sodium Potassium Chloride Carbon Dioxide BUN Creatinine Glucose POC Glucose 108 H 119 H 135 H Lactic Acid Calcium Phosphorus AST ALT Alkaline Phosphatase Total Creatine Kinase CK-MB (CK-2) Rel Index Troponin T C-Reactive Protein Total Protein Albumin LDL Cholesterol Direct HDL Cholesterol Urine WBC (Auto) Salicylates Hepatitis C Antibody
--- NOTE | 2017-05-24 15:57 | Progress Note ---
Assessment and Plan - Patient Problems (1) Acute hypoxemic respiratory failure Current Visit: No Status: Acute Plan to address problem: As per pulmonology and primary team (2) ESRD (end stage renal disease) Current Visit: Yes Status: Chronic Plan to address problem: No Labs today S/p Hemodialysis today for gentle UF and clearance, UF removed 1.2 liters Assess need for HD on daily basis Continue midodrine for blood pressure support Monitor daily labs and adjust renal management as needed On sensipar Currently on renvela 800 mg orally three times a day with meals Renally dose medications Obtain daily weight Strict intake and output Renal plan discussed with Dr Fuchs Continue supportive therapy (3) Diabetes mellitus Current Visit: Yes Status: Acute Plan to address problem: On insulin As per primary team (4) Hypotension Current Visit: Yes Status: Acute Plan to address problem: Continue midodrine for blood pressure support Possible need for ICU transfer for pressors if worsening hypotension despite midodrine (5) Pneumonia Current Visit: No Status: Acute Qualifiers: Laterality: bilateral Plan to address problem: As per ID and pulmonology management Subjective Date of service: 05/24/17 Principal diagnosis: MRSA pneumonia, shock,sepsis,ESRD Interval history: Patient reported feeling fatigued and not feeling well, s/p HD treatment today, was hypotensive during HD, I spoke with her nurse to recheck her blood pressure given her symptoms of not feeling well/fatigue. Evaluated patient about 30 minutes later, states she is feeling better after getting something to eat and drink. No family at bedside. Objective - Vital Signs Vital signs: Vital Signs - 12hr 05/24/17 05/24/17 05/24/17 05:01 07:54 08:22 Temperature 97.9 F 97.6 F Pulse Rate 86 78 Pulse Rate [ 78 Anterior Bilateral Throughout] Respiratory 16 18 Rate Respiratory 18 Rate [Anterior Bilateral Throughout] Blood Pressure 98/57 80/46 O2 Sat by Pulse 93 98 100 Oximetry 05/24/17 05/24/17 05/24/17 08:32 10:00 10:15 Temperature 97.8 F Pulse Rate 80 78 Pulse Rate [ 83 Anterior Bilateral Throughout] Respiratory 18 Rate Respiratory 18 Rate [Anterior Bilateral Throughout] Blood Pressure 98/53 94/47 O2 Sat by Pulse Oximetry 05/24/17 05/24/17 05/24/17 10:33 10:49 11:01 Temperature Pulse Rate 118 H 82 82 Pulse Rate [ Anterior Bilateral Throughout] Respiratory Rate Respiratory Rate [Anterior Bilateral Throughout] Blood Pressure 96/33 79/44 76/44 O2 Sat by Pulse Oximetry 05/24/17 05/24/17 05/24/17 11:15 11:31 11:45 Temperature Pulse Rate 83 81 92 H Pulse Rate [ Anterior Bilateral Throughout] Respiratory Rate Respiratory Rate [Anterior Bilateral Throughout] Blood Pressure 105/36 88/43 113/52 O2 Sat by Pulse Oximetry 05/24/17 05/24/17 05/24/17 12:03 12:15 12:33 Temperature Pulse Rate 81 81 85 Pulse Rate [ Anterior Bilateral Throughout] Respiratory Rate Respiratory Rate [Anterior Bilateral Throughout] Blood Pressure 93/46 95/54 89/45 O2 Sat by Pulse Oximetry 05/24/17 05/24/17 05/24/17 12:49 12:52 13:05 Temperature Pulse Rate 88 84 87 Pulse Rate [ Anterior Bilateral Throughout] Respiratory Rate Respiratory Rate [Anterior Bilateral Throughout] Blood Pressure 81/41 86/49 78/45 O2 Sat by Pulse Oximetry 05/24/17 05/24/17 05/24/17 13:13 13:23 13:30 Temperature Pulse Rate 74 80 Pulse Rate [ 87 80 Anterior Bilateral Throughout] Respiratory Rate Respiratory 18 18 Rate [Anterior Bilateral Throughout] Blood Pressure 105/42 81/43 O2 Sat by Pulse Oximetry 05/24/17 13:45 Temperature 97.8 F Pulse Rate 80 Pulse Rate [ Anterior Bilateral Throughout] Respiratory 18 Rate Respiratory Rate [Anterior Bilateral Throughout] Blood Pressure 81/43 O2 Sat by Pulse Oximetry - General Appearance General appearance: frail EENT: ATNC Neck: no JVD Respiratory: Present: Other (Lung sounds decreased bilaterally, unlabored ) Cardiology: regular, S1S2 Gastrointestinal: normoactive bowel sounds, no tenderness Integumentary: other (bruising to upper and lower extremities) Neurologic: alert and oriented x3 Musculoskeletal: other (no edema to both lower extremities) Psychiatric: cooperative - Lab 05/23/17 05:53 05/23/17 05:53 Most recent lab results Calcium 8.5 mg/dL (8.4-10.2) 05/23/17 05:53 Phosphorus 4.60 mg/dL (2.5-4.5) H 05/23/17 05:53 Magnesium 2.20 mg/dL (1.7-2.3) 05/19/17 03:00
[2017-05-25] MEDS: PROAMATINE PO SCH ×3 (03:50→20:07)
[2017-05-25] MEDS: NEURONTIN PO SCH ×3 (05:08→22:11)
[2017-05-25] MEDS: TUMS PO PRN ×2 (05:09→18:32)
[2017-05-25 06:12] LABS: Basophils % (Auto) 0.3 % (0.0-1.8); Eosinophils # (Auto) 0.1 K/mm3 (0.0-0.4); Eosinophils % (Auto) 0.8 % (0.0-4.3); Hematocrit 34.5 % (30.3-42.9); Hemoglobin 10.8 gm/dl (10.1-14.3); Lymphocytes # (Auto) 1.4 K/mm3 (1.2-5.4); Lymphocytes % (Auto) 9.7 % (13.4-35.0); Mean Corpuscular HGB Conc 31 % (30-34); Mean Corpuscular Hemoglobin 33 pg (28-32); Mean Corpuscular Volume 106 fl (79-97); Monocytes # (Auto) 1.3 K/mm3 (0.0-0.8); Platelet Count 260 K/mm3 (140-440); Red Blood Count 3.26 M/mm3 (3.65-5.03)
[2017-05-25 06:17] LABS: Red Cell Distribution Width 23.1 % (13.2-15.2)
[2017-05-25 06:30] LABS: Calcium 8.2 mg/dL (8.4-10.2)
[2017-05-25] MEDS: NOVOLOG SUB-Q SCH ×4 (07:45→23:05)
[2017-05-25] MEDS: PROVENTIL IH SCH ×3 (08:04→19:45)
[2017-05-25] MEDS: RENVELA PO SCH ×3 (08:30→18:27)
[2017-05-25] MEDS: HABITROL TD SCH (09:57)
[2017-05-25] MEDS: ZOFRAN IV PRN ×2 (09:57→19:58)
[2017-05-25] MEDS: SENSIPAR PO SCH ×2 (09:58→22:11)
[2017-05-25] MEDS: HEPARIN SUB-Q SCH ×2 (09:58→22:11)
[2017-05-25] MEDS: ZOLOFT PO SCH (09:59)
[2017-05-25] MEDS: BABY ASPIRIN PO SCH (09:59)
--- NOTE | 2017-05-25 10:53 | Progress Note ---
Assessment and Plan Assessment and plan: --Sepsis: MRSA pneumonia,on Zyvox, per ID , contact isolation. tracheal aspirate positive for MRSA. Follow-up chest x-ray improved. Continue Midodrine 3 times a day. Pt still with leukocytosis --Leukocytosis; resolved . --Type 2 diabetes mellitus; Accu-Chek sliding scale coverage ADA diet, and long- acting 70/30 insulin --Acute on chronic respiratory failure; secondary to fluid overload/MRSA pneumonia, BiPAP as needed --Metabolic encephalopathy on admission; s/p intubation --Poor oral nutrition ; nutrition supplements --Dysphagia. Speech therapy reports Moderate oral dysphagia with mechanical soft food characterized by poor mastication skills due to missing dentition. Moderate-severe pharyngeal dysphagia with mechanical soft and thin liquids characterized by intermittent s/s of aspiration. Pt. is not safe on a regular diet. Findings were discussed with the patient --Coronary artery disease s/p PCI : Stable --Cardiomyopathy ejection fraction of 40% 04/2016 --End-stage renal disease on hemodialysis, HD per nephrology, cont. midodrine for BP support --Dyslipidemia; on lipid-lowering medications --DVT prophylaxis; SCD --Diarrhea resolved. Flagyl discontinued Cardiology, pulmonary and nephrology following Disposition. Anticipate discharge in a.m. to SNF History Interval history: no new issues overnight. Hospitalist Physical - Constitutional Vitals: Temp Pulse Resp BP Pulse Ox 97.8 F 90 18 104/67 100 05/25/17 04:36 05/25/17 07:50 05/25/17 07:50 05/25/17 04:36 05/25/17 09:42 General appearance: Present: no acute distress, well-nourished - EENT Eyes: Present: PERRL, EOM intact ENT: hearing intact, clear oral mucosa, dentition normal - Neck Neck: Present: supple, normal ROM - Respiratory Respiratory effort: normal Respiratory: bilateral: CTA - Cardiovascular Rhythm: regular Heart Sounds: Present: S1 & S2. Absent: gallop, rub - Extremities Extremities: no ischemia, No edema, Full ROM - Abdominal General gastrointestinal: soft, non-tender, non-distended, normal bowel sounds - Integumentary Integumentary: Present: clear, warm, dry - Neurologic Neurologic: CNII-XII intact, moves all extremities Results - Labs CBC & Chem 7: 05/25/17 04:59 05/25/17 04:59 Labs: Laboratory Last Values WBC 14.4 K/mm3 (4.5-11.0) H 05/25/17 04:59 RBC 3.26 M/mm3 (3.65-5.03) L 05/25/17 04:59 Hgb 10.8 gm/dl (10.1-14.3) 05/25/17 04:59 Hct 34.5 % (30.3-42.9) 05/25/17 04:59 MCV 106 fl (79-97) H 05/25/17 04:59 MCH 33 pg (28-32) H 05/25/17 04:59 MCHC 31 % (30-34) 05/25/17 04:59 RDW 23.1 % (13.2-15.2) H 05/25/17 04:59 Plt Count 260 K/mm3 (140-440) 05/25/17 04:59 Lymph % (Auto) 9.7 % (13.4-35.0) L 05/25/17 04:59 [place] % (Auto) 9.0 % (0.0-7.3) H 05/25/17 04:59 Eos % (Auto) 0.8 % (0.0-4.3) 05/25/17 04:59 Baso % (Auto) 0.3 % (0.0-1.8) 05/25/17 04:59 Lymph # 1.4 K/mm3 (1.2-5.4) 05/25/17 04:59 [place] # 1.3 K/mm3 (0.0-0.8) H 05/25/17 04:59 Eos # 0.1 K/mm3 (0.0-0.4) 05/25/17 04:59 Baso # 0.0 K/mm3 (0.0-0.1) 05/25/17 04:59 Add Manual Diff Complete 05/20/17 05:00 Total Counted 100 05/20/17 05:00 Seg Neutrophils % 80.2 % (40.0-70.0) H 05/25/17 04:59 Seg Neuts % (Manual) 93.0 % (40.0-70.0) H 05/20/17 05:00 Band Neutrophils % 1.0 % 05/20/17 05:00 Lymphocytes % (Manual) 3.0 % (13.4-35.0) L 05/20/17 05:00 Reactive Lymphs % (Man) 0 % 05/20/17 05:00 Monocytes % (Manual) 3.0 % (0.0-7.3) 05/20/17 05:00 Eosinophils % (Manual) 0 % (0.0-4.3) 05/20/17 05:00 Basophils % (Manual) 0 % (0.0-1.8) 05/20/17 05:00 Metamyelocytes % 0 % 05/20/17 05:00 Myelocytes % 0 % 05/20/17 05:00 Promyelocytes % 0 % 05/20/17 05:00 Blast Cells % 0 % 05/20/17 05:00 Nucleated RBC % Not Reportable 05/20/17 05:00 Seg Neutrophils # 11.5 K/mm3 (1.8-7.7) H 05/25/17 04:59 Seg Neutrophils # Man 9.8 K/mm3 (1.8-7.7) H 05/20/17 05:00 Band Neutrophils # 0.1 K/mm3 05/20/17 05:00 Lymphocytes # (Manual) 0.3 K/mm3 (1.2-5.4) L 05/20/17 05:00 Abs React Lymphs (Man) 0.0 K/mm3 05/20/17 05:00 Monocytes # (Manual) 0.3 K/mm3 (0.0-0.8) 05/20/17 05:00 Eosinophils # (Manual) 0.0 K/mm3 (0.0-0.4) 05/20/17 05:00 Basophils # (Manual) 0.0 K/mm3 (0.0-0.1) 05/20/17 05:00 Metamyelocytes # 0.0 K/mm3 05/20/17 05:00 Myelocytes # 0.0 K/mm3 05/20/17 05:00 Promyelocytes # 0.0 K/mm3 05/20/17 05:00 Blast Cells # 0.0 K/mm3 05/20/17 05:00 WBC Morphology Not Reportable 05/20/17 05:00 Hypersegmented Neuts Not Reportable 05/20/17 05:00 Hyposegmented Neuts Not Reportable 05/20/17 05:00 Hypogranular Neuts Not Reportable 05/20/17 05:00 Smudge Cells Not Reportable 05/20/17 05:00 Toxic Granulation Not Reportable 05/20/17 05:00 Toxic Vacuolation Not Reportable 05/20/17 05:00 Dohle Bodies Not Reportable 05/20/17 05:00 Pelger-Huet Anomaly Not Reportable 05/20/17 05:00 Anthony Rods Not Reportable 05/20/17 05:00 Platelet Estimate Appears normal 05/20/17 05:00 Clumped Platelets Not Reportable 05/20/17 05:00 Plt Clumps, EDTA Not Reportable 05/20/17 05:00 Large Platelets Not Reportable 05/20/17 05:00 Giant Platelets Not Reportable 05/20/17 05:00 Platelet Satelliting Not Reportable 05/20/17 05:00 Plt Morphology Comment Not Reportable 05/20/17 05:00 RBC Morphology Not Reportable 05/20/17 05:00 Dimorphic RBCs Not Reportable 05/20/17 05:00 Polychromasia Few 05/20/17 05:00 Hypochromasia Not Reportable 05/20/17 05:00 Poikilocytosis Not Reportable 05/20/17 05:00 Anisocytosis 1+ 05/20/17 05:00 Microcytosis Not Reportable 05/20/17 05:00 Macrocytosis 1+ 05/20/17 05:00 Spherocytes Not Reportable 05/20/17 05:00 Pappenheimer Bodies Not Reportable 05/20/17 05:00 Sickle Cells Not Reportable 05/20/17 05:00 Target Cells Rare 05/20/17 05:00 Tear Drop Cells 1+ 05/20/17 05:00 Ovalocytes 1+ 05/20/17 05:00 Stomatocytes Few 05/20/17 05:00 Helmet Cells Not Reportable 05/20/17 05:00 [place] Bodies Not Reportable 05/20/17 05:00 [place] Rings Not Reportable 05/20/17 05:00 Anthony Cells Not Reportable 05/20/17 05:00 Bite Cells Not Reportable 05/20/17 05:00 Crenated Cell Not Reportable 05/20/17 05:00 Elliptocytes Rare 05/20/17 05:00 Acanthocytes (Spur) Not Reportable 05/20/17 05:00 Rouleaux Not Reportable 05/20/17 05:00 Hemoglobin C Crystals Not Reportable 05/20/17 05:00 Schistocytes Not Reportable 05/20/17 05:00 Malaria parasites Not Reportable 05/20/17 05:00 Jose Bodies Not Reportable 05/20/17 05:00 Hem Pathologist Commnt No 05/20/17 05:00 PT 14.4 Sec. (12.2-14.9) 05/17/17 04:45 INR 1.06 (0.87-1.13) 05/17/17 04:45 APTT 27.5 Sec. (24.2-36.6) 05/17/17 04:45 POC ABG pH 7.450 (7.35-7.45) 05/12/17 13:10 POC ABG pCO2 36.7 (35-45) 05/12/17 13:10 POC ABG pO2 66 (80-105) L 05/12/17 13:10 POC ABG HCO3 25.5 05/12/17 13:10 POC ABG Total CO2 27 05/12/17 13:10 POC ABG O2 Sat 94 05/12/17 13:10 POC ABG Base Excess 2 05/12/17 13:10 FiO2 25 % 05/12/17 13:10 Sodium 134 mmol/L (137-145) L D 05/25/17 04:59 Potassium 3.9 mmol/L (3.6-5.0) 05/25/17 04:59 Chloride 87.1 mmol/L (98-107) L 05/25/17 04:59 Carbon Dioxide 27 mmol/L (22-30) 05/25/17 04:59 Anion Gap 24 mmol/L 05/25/17 04:59 BUN 36 mg/dL (7-17) H 05/25/17 04:59 Creatinine 3.6 mg/dL (0.7-1.2) H 05/25/17 04:59 Estimated GFR 13 ml/min 05/25/17 04:59 BUN/Creatinine Ratio 10 % 05/25/17 04:59 Glucose 102 mg/dL (65-100) H 05/25/17 04:59 POC Glucose 98 (70-105) 05/25/17 06:53 Hemoglobin A1c 5.5 % (4-6) 05/16/17 04:00 Lactic Acid 2.60 mmol/L (0.7-2.0) H* 05/12/17 16:05 Calcium 8.2 mg/dL (8.4-10.2) L 05/25/17 04:59 Phosphorus 4.60 mg/dL (2.5-4.5) H 05/23/17 05:53 Magnesium 2.20 mg/dL (1.7-2.3) 05/19/17 03:00 Total Bilirubin 0.30 mg/dL (0.1-1.2) 05/21/17 04:09 AST 13 units/L (5-40) 05/21/17 04:09 ALT 19 units/L (7-56) 05/21/17 04:09 Alkaline Phosphatase 191 units/L (35-129) H 05/21/17 04:09 Ammonia 34.0 umol/L (25-60) 05/17/17 04:45 Total Creatine Kinase 24 units/L (30-135) L 05/09/17 14:00 CK-MB (CK-2) 2.2 ng/mL (0.0-4.0) 05/09/17 14:00 CK-MB (CK-2) Rel Index 9.1 (0-4) H 05/09/17 14:00 Troponin T 0.654 ng/mL (0.00-0.029) H* 05/09/17 14:00 C-Reactive Protein 14.70 mg/dL (0.00-1.30) H 05/15/17 12:15 Total Protein 7.1 g/dL (6.3-8.2) 05/21/17 04:09 Albumin 3.7 g/dL (3.9-5) L 05/21/17 04:09 Albumin/Globulin Ratio 1.1 % 05/21/17 04:09 Triglycerides 125 mg/dL (2-149) 05/09/17 06:00 Cholesterol 73 mg/dL (50-199) 05/09/17 06:00 LDL Cholesterol Direct 21 mg/dL (50-130) L 05/09/17 06:00 HDL Cholesterol 27 mg/dL (40-59) L 05/09/17 06:00 Cholesterol/HDL Ratio 2.70 % 05/09/17 06:00 Total Cortisol 35.2 mcg/dL () 05/15/17 12:15 Urine Color Yellow (Yellow) 05/08/17 Unknown Urine Turbidity Clear (Clear) 05/08/17 Unknown Urine pH 7.0 (5.0-7.0) 05/08/17 Unknown Ur Specific [place] 1.014 (1.003-1.030) 05/08/17 Unknown Urine Protein 100 mg/dl mg/dL (Negative) 05/08/17 Unknown Urine Glucose (UA) 150 mg/dL (Negative) 05/08/17 Unknown Urine Ketones Neg mg/dL (Negative) 05/08/17 Unknown Urine Blood Sm (Negative) 05/08/17 Unknown Urine Nitrite Neg (Negative) 05/08/17 Unknown Urine Bilirubin Neg (Negative) 05/08/17 Unknown Urine Urobilinogen < 2.0 mg/dL (<2.0) 05/08/17 Unknown Ur Leukocyte Esterase Tr (Negative) 05/08/17 Unknown Urine WBC (Auto) 16.0 /HPF (0.0-6.0) H 05/08/17 Unknown Urine RBC (Auto) 3.0 /HPF (0.0-6.0) 05/08/17 Unknown U Epithel Cells (Auto) < 1.0 /HPF (0-13.0) 05/08/17 Unknown Urine Bacteria (Auto) 1+ /HPF (Negative) 05/08/17 Unknown Salicylates < 0.3 mg/dL (2.8-20.0) L 05/08/17 21:35 Acetaminophen < 15.0 ug/mL (10.0-30.0) 05/08/17 21:35 Hepatitis A IgM Ab Non-reactive (NonReactive) 05/09/17 17:00 Hep Bs Antigen Non-reactive (Negative) 05/09/17 17:00 Hep B Core IgM Ab Non-reactive (NonReactive) 05/09/17 17:00 Hepatitis C Antibody Reactive (NonReactive) A 05/09/17 17:00
--- NOTE | 2017-05-25 12:43 | Progress Note ---
Assessment and Plan (1) Acute hypoxemic respiratory failure Current Visit: No Status: Acute Plan to address problem: As per pulmonology and primary team (2) ESRD (end stage renal disease) Current Visit: Yes Status: Chronic Plan to address problem: no indication for HD today. Ok to be discharged from renal standpoint Assess need for HD on daily basis Continue midodrine for blood pressure support Monitor daily labs and adjust renal management as needed On sensipar Currently on renvela 800 mg orally three times a day with meals Renally dose medications Obtain daily weight Strict intake and output (3) Diabetes mellitus Current Visit: Yes Status: Acute Plan to address problem: On insulin As per primary team (4) Hypotension Current Visit: Yes Status: Acute Plan to address problem: Continue midodrine for blood pressure support (5) Pneumonia Current Visit: No Status: Acute Qualifiers: Laterality: bilateral Plan to address problem: As per ID and pulmonology management Subjective Date of service: 05/25/17 Principal diagnosis: MRSA pneumonia, shock,sepsis,ESRD Interval history: comfortable, requesting to go home Objective - Vital Signs Vital signs: Vital Signs - 12hr 05/25/17 05/25/17 05/25/17 04:36 07:40 07:48 Temperature 97.8 F 97.7 F Pulse Rate 89 87 Pulse Rate [ 89 Anterior Bilateral Throughout] Respiratory 16 19 Rate Respiratory 18 Rate [Anterior Bilateral Throughout] Blood Pressure 104/67 138/75 O2 Sat by Pulse 100 96 Oximetry 05/25/17 05/25/17 07:50 09:42 Temperature Pulse Rate Pulse Rate [ 90 Anterior Bilateral Throughout] Respiratory Rate Respiratory 18 Rate [Anterior Bilateral Throughout] Blood Pressure O2 Sat by Pulse 100 Oximetry - General Appearance General appearance: well-developed, cachectic EENT: ATNC, PERRL, mucous membranes moist Neck: no JVD, no carotid bruit Respiratory: Present: Clear to Ascultation. Absent: Rales, Ronchi Cardiology: regular, S1S2 Gastrointestinal: normoactive bowel sounds, no tenderness, no distended Integumentary: no rash, warm and dry Neurologic: no focal deficit, no asterixis Musculoskeletal: other (no edema in BLE) Psychiatric: mood/affect appropriate, cooperative - Lab 05/25/17 04:59 05/25/17 04:59 Most recent lab results Calcium 8.2 mg/dL (8.4-10.2) L 05/25/17 04:59 Phosphorus 4.60 mg/dL (2.5-4.5) H 05/23/17 05:53 Magnesium 2.20 mg/dL (1.7-2.3) 05/19/17 03:00
--- NOTE | 2017-05-25 14:31 | Progress Note ---
Assessment and Plan Imp: 1. HCAP, presumed MRSA 2. Sepsis w/ septic shock 3. ESRD 4. A/C respiratory failure, hypoxia 5. Ischemic cardiomyopathy/CAD 6. Pulm HTN 7. ? COPD Rec: 1. Finished ABX 2. Midodrine 3. Diet per ST 4. DVT PPx 5. D/c smoking 6. Outpatient PFTs 7. Mobilize 8. F/u another CXR as outpatient; can see us 1-2 weeks after d/c; may be discharged to SNF [facility] Plan of care reviewed w/ patient, she understands/agrees Subjective Date of service: 05/25/17 Principal diagnosis: MRSA pneumonia, shock,sepsis,ESRD Interval history: No events. On 2L NC. Awake, alert. SOB is better. Minimal cough, congestion. No chest pain. No new complaints. Active Medications Acetaminophen (Tylenol) 650 mg PO Q4H PRN PRN Reason: Pain, Mild (1-3) Last Admin: 05/24/17 23:21 Dose: 650 mg Albuterol (Proventil) 2.5 mg IH TIDRT [facility] Last Admin: 05/25/17 14:12 Dose: 2.5 mg Aspirin (Baby Aspirin) 81 mg PO QDAY [facility] Last Admin: 05/25/17 09:59 Dose: 81 mg Atorvastatin Calcium (Lipitor) 40 mg PO DAILY [facility] Last Admin: 05/25/17 09:59 Dose: 40 mg Calcium Carbonate/Glycine (Tums) 500 mg PO Q4H PRN PRN Reason: Indigestion Last Admin: 05/25/17 05:09 Dose: 500 mg Cinacalcet (Sensipar) 30 mg PO BID [facility] Last Admin: 05/25/17 09:58 Dose: 30 mg Cyclobenzaprine HCl (Flexeril) 10 mg PO TID PRN PRN Reason: Muscle Spasm Last Admin: 05/12/17 10:24 Dose: 10 mg Gabapentin (Neurontin) 300 mg PO Q8HR [facility] Last Admin: 05/25/17 13:00 Dose: 300 mg Heparin Sodium (Porcine) (Heparin) 5,000 unit SUB-Q Q12HR [facility] Last Admin: 05/25/17 09:58 Dose: 5,000 unit Hydrophilic Ointment (Vaseline Lip Therapy) 1 applic TP Q2HR PRN PRN Reason: Dry Lips Sodium Chloride (Nacl 0.9%) 100 mls @ 999 mls/hr IV GISSELL PRN PRN Reason: Hypotension Insulin Aspart (Novolog) 0 units SUB-Q ACHS [facility] PRN Reason: Protocol Last Admin: 05/25/17 12:58 Dose: Not Given Insulin Human Isoph/Insulin Regular (Novolin 70/30) 10 unit SUB-Q BIDDIAB [facility] Last Admin: 05/25/17 07:30 Dose: Not Given Midodrine (Proamatine) 10 mg PO Q8H [facility] Last Admin: 05/25/17 12:58 Dose: 10 mg Multi-Ingred Cream/Lotion/Oil/Oint (Artificial Tears Ophth Oint) 1 applic OU Q4HR PRN PRN Reason: Dry Eye(s) Nicotine (Habitrol) 21 mg TD QDAY [facility] Last Admin: 05/25/17 09:57 Dose: 21 mg Ondansetron HCl (Zofran) 4 mg IV Q8H PRN PRN Reason: Nausea And Vomiting Last Admin: 05/25/17 09:57 Dose: 4 mg Sertraline HCl (Zoloft) 50 mg PO QDAY [facility] Last Admin: 05/25/17 09:59 Dose: 50 mg Sevelamer Carbonate (Renvela) 800 mg PO TIDWM [facility] Last Admin: 05/25/17 12:57 Dose: 800 mg Objective Vital Signs - 12hr 05/25/17 05/25/17 05/25/17 04:36 07:40 07:48 Temperature 97.8 F 97.7 F Pulse Rate 89 87 Pulse Rate [ 89 Anterior Bilateral Throughout] Respiratory 16 19 Rate Respiratory 18 Rate [Anterior Bilateral Throughout] Blood Pressure 104/67 138/75 O2 Sat by Pulse 100 96 Oximetry 05/25/17 05/25/17 07:50 09:42 Temperature Pulse Rate Pulse Rate [ 90 Anterior Bilateral Throughout] Respiratory Rate Respiratory 18 Rate [Anterior Bilateral Throughout] Blood Pressure O2 Sat by Pulse 100 Oximetry Constitutional: no acute distress, alert ENT: oropharynx moist Neck: supple Effort: normal Ascultation: Bilateral: clear Cardiovascular: regular rate and rhythm (no mrg) Gastrointestinal: normoactive bowel sounds, soft, non-tender Integumentary: other (Patsy left-sided face) Extremities: no cyanosis, no edema Neurologic: normal mental status, non-focal exam, pupils equal and round, CN II- XII normal, motor strength normal and Psychiatric: mood appropriate, affect normal CBC and BMP: 05/25/17 04:59 05/25/17 04:59 ABG, PT/INR, D-dimer: ABG POC ABG pH 7.450 (7.35-7.45) 05/12/17 13:10 POC ABG pCO2 36.7 (35-45) 05/12/17 13:10 POC ABG pO2 66 (80-105) L 05/12/17 13:10 POC ABG HCO3 25.5 05/12/17 13:10 POC ABG Total CO2 27 05/12/17 13:10 POC ABG O2 Sat 94 05/12/17 13:10 PT/INR, D-dimer PT 14.4 Sec. (12.2-14.9) 05/17/17 04:45 INR 1.06 (0.87-1.13) 05/17/17 04:45 Abnormal lab findings: Abnormal Labs 05/08/17 05/08/17 05/08/17 21:25 21:25 21:25 WBC RBC 2.55 L Hgb 8.9 L Hct 28.1 L MCV 111 H MCH 35 H RDW 25.4 H Lymph % (Auto) [place] % (Auto) Lymph # [place] # Baso # Seg Neutrophils % Seg Neuts % (Manual) 92.0 H Lymphocytes % (Manual) 6.0 L Monocytes % (Manual) Nucleated RBC % Seg Neutrophils # Seg Neutrophils # Man 9.3 H Lymphocytes # (Manual) 0.6 L Monocytes # (Manual) PT 15.2 H INR 1.14 H POC ABG pH POC ABG pCO2 POC ABG pO2 Sodium Potassium Chloride Carbon Dioxide BUN Creatinine Glucose POC Glucose Lactic Acid 2.50 H* Calcium Phosphorus AST ALT Alkaline Phosphatase Total Creatine Kinase CK-MB (CK-2) Rel Index Troponin T C-Reactive Protein Total Protein Albumin LDL Cholesterol Direct HDL Cholesterol Urine WBC (Auto) Salicylates Hepatitis C Antibody 05/08/17 05/08/17 05/08/17 21:35 22:04 22:42 WBC RBC Hgb Hct MCV MCH RDW Lymph % (Auto) [place] % (Auto) Lymph # [place] # Baso # Seg Neutrophils % Seg Neuts % (Manual) Lymphocytes % (Manual) Monocytes % (Manual) Nucleated RBC % Seg Neutrophils # Seg Neutrophils # Man Lymphocytes # (Manual) Monocytes # (Manual) PT INR POC ABG pH 7.271 L POC ABG pCO2 56.5 H POC ABG pO2 30 L Sodium Potassium Chloride 107.8 H Carbon Dioxide BUN 22 H Creatinine 2.6 H Glucose 202 H POC Glucose Lactic Acid Calcium 7.3 L Phosphorus AST ALT Alkaline Phosphatase 258 H Total Creatine Kinase CK-MB (CK-2) Rel Index Troponin T C-Reactive Protein Total Protein 5.2 L Albumin 2.9 L LDL Cholesterol Direct HDL Cholesterol Urine WBC (Auto) Salicylates < 0.3 L Hepatitis C Antibody 05/08/17 05/09/17 05/09/17 Unknown 00:24 06:00 WBC RBC Hgb Hct MCV MCH RDW Lymph % (Auto) [place] % (Auto) Lymph # [place] # Baso # Seg Neutrophils % Seg Neuts % (Manual) Lymphocytes % (Manual) Monocytes % (Manual) Nucleated RBC % Seg Neutrophils # Seg Neutrophils # Man Lymphocytes # (Manual) Monocytes # (Manual) PT INR POC ABG pH 7.283 L POC ABG pCO2 49.9 H POC ABG pO2 249 H Sodium Potassium Chloride Carbon Dioxide BUN Creatinine Glucose POC Glucose Lactic Acid Calcium Phosphorus AST ALT Alkaline Phosphatase Total Creatine Kinase 19 L CK-MB (CK-2) Rel Index 11.0 H Troponin T 0.612 H* C-Reactive Protein Total Protein Albumin LDL Cholesterol Direct 21 L HDL Cholesterol 27 L Urine WBC (Auto) 16.0 H Salicylates Hepatitis C Antibody 05/09/17 05/09/17 05/09/17 06:00 06:00 08:52 WBC 11.7 H RBC 2.67 L Hgb 9.3 L Hct 30.0 L MCV 112 H MCH 35 H RDW 24.4 H Lymph % (Auto) [place] % (Auto) Lymph # [place] # Baso # Seg Neutrophils % Seg Neuts % (Manual) Lymphocytes % (Manual) Monocytes % (Manual) Nucleated RBC % Seg Neutrophils # Seg Neutrophils # Man Lymphocytes # (Manual) Monocytes # (Manual) PT INR POC ABG pH 7.323 L POC ABG pCO2 POC ABG pO2 143 H Sodium Potassium Chloride Carbon Dioxide BUN 24 H Creatinine 2.9 H Glucose 172 H POC Glucose Lactic Acid Calcium 7.7 L Phosphorus AST ALT Alkaline Phosphatase Total Creatine Kinase CK-MB (CK-2) Rel Index Troponin T C-Reactive Protein Total Protein Albumin LDL Cholesterol Direct HDL Cholesterol Urine WBC (Auto) Salicylates Hepatitis C Antibody 05/09/17 05/09/17 05/11/17 14:00 17:00 06:09 WBC 11.4 H RBC 2.66 L Hgb 9.1 L Hct 29.3 L MCV 110 H MCH 34 H RDW 23.1 H Lymph % (Auto) 4.2 L [place] % (Auto) 12.7 H Lymph # 0.5 L [place] # 1.4 H Baso # Seg Neutrophils % 82.5 H Seg Neuts % (Manual) Lymphocytes % (Manual) Monocytes % (Manual) Nucleated RBC % Seg Neutrophils # 9.4 H Seg Neutrophils # Man Lymphocytes # (Manual) Monocytes # (Manual) PT INR POC ABG pH POC ABG pCO2 POC ABG pO2 Sodium Potassium Chloride Carbon Dioxide BUN Creatinine Glucose POC Glucose Lactic Acid Calcium Phosphorus AST ALT Alkaline Phosphatase Total Creatine Kinase 24 L CK-MB (CK-2) Rel Index 9.1 H Troponin T 0.654 H* C-Reactive Protein Total Protein Albumin LDL Cholesterol Direct HDL Cholesterol Urine WBC (Auto) Salicylates Hepatitis C Antibody Reactive A 05/11/17 05/11/17 05/11/17 06:09 08:20 11:34 WBC RBC Hgb Hct MCV MCH RDW Lymph % (Auto) [place] % (Auto) Lymph # [place] # Baso # Seg Neutrophils % Seg Neuts % (Manual) Lymphocytes % (Manual) Monocytes % (Manual) Nucleated RBC % Seg Neutrophils # Seg Neutrophils # Man Lymphocytes # (Manual) Monocytes # (Manual) PT INR POC ABG pH POC ABG pCO2 POC ABG pO2 Sodium Potassium Chloride 95.6 L Carbon Dioxide 20 L BUN 24 H Creatinine 3.4 H Glucose 134 H POC Glucose 154 H 149 H Lactic Acid Calcium Phosphorus AST ALT Alkaline Phosphatase Total Creatine Kinase CK-MB (CK-2) Rel Index Troponin T C-Reactive Protein Total Protein Albumin LDL Cholesterol Direct HDL Cholesterol Urine WBC (Auto) Salicylates Hepatitis C Antibody 05/11/17 05/11/17 05/11/17 15:30 16:27 21:58 WBC RBC Hgb Hct MCV MCH RDW Lymph % (Auto) [place] % (Auto) Lymph # [place] # Baso # Seg Neutrophils % Seg Neuts % (Manual) Lymphocytes % (Manual) Monocytes % (Manual) Nucleated RBC % Seg Neutrophils # Seg Neutrophils # Man Lymphocytes # (Manual) Monocytes # (Manual) PT INR POC ABG pH POC ABG pCO2 POC ABG pO2 Sodium Potassium Chloride Carbon Dioxide BUN Creatinine Glucose POC Glucose 163 H 199 H Lactic Acid Calcium Phosphorus AST ALT Alkaline Phosphatase Total Creatine Kinase CK-MB (CK-2) Rel Index Troponin T C-Reactive Protein 44.70 H Total Protein Albumin LDL Cholesterol Direct HDL Cholesterol Urine WBC (Auto) Salicylates Hepatitis C Antibody 05/12/17 05/12/17 05/12/17 08:42 13:10 14:10 WBC RBC Hgb Hct MCV MCH RDW Lymph % (Auto) [place] % (Auto) Lymph # [place] # Baso # Seg Neutrophils % Seg Neuts % (Manual) Lymphocytes % (Manual) Monocytes % (Manual) Nucleated RBC % Seg Neutrophils # Seg Neutrophils # Man Lymphocytes # (Manual) Monocytes # (Manual) PT INR POC ABG pH POC ABG pCO2 POC ABG pO2 66 L Sodium Potassium Chloride Carbon Dioxide BUN Creatinine Glucose POC Glucose 190 H 162 H Lactic Acid Calcium Phosphorus AST ALT Alkaline Phosphatase Total Creatine Kinase CK-MB (CK-2) Rel Index Troponin T C-Reactive Protein Total Protein Albumin LDL Cholesterol Direct HDL Cholesterol Urine WBC (Auto) Salicylates Hepatitis C Antibody 05/12/17 05/12/17 05/12/17 15:46 16:05 21:42 WBC RBC Hgb Hct MCV MCH RDW Lymph % (Auto) [place] % (Auto) Lymph # [place] # Baso # Seg Neutrophils % Seg Neuts % (Manual) Lymphocytes % (Manual) Monocytes % (Manual) Nucleated RBC % Seg Neutrophils # Seg Neutrophils # Man Lymphocytes # (Manual) Monocytes # (Manual) PT INR POC ABG pH POC ABG pCO2 POC ABG pO2 Sodium Potassium Chloride Carbon Dioxide BUN Creatinine Glucose POC Glucose 153 H 153 H Lactic Acid 2.60 H* Calcium Phosphorus AST ALT Alkaline Phosphatase Total Creatine Kinase CK-MB (CK-2) Rel Index Troponin T C-Reactive Protein Total Protein Albumin LDL Cholesterol Direct HDL Cholesterol Urine WBC (Auto) Salicylates Hepatitis C Antibody 05/13/17 05/13/17 05/13/17 05:12 05:30 05:30 WBC 22.0 H RBC 3.02 L Hgb 9.9 L Hct MCV 105 H MCH 33 H RDW 22.9 H Lymph % (Auto) [place] % (Auto) Lymph # [place] # Baso # Seg Neutrophils % Seg Neuts % (Manual) 89.0 H Lymphocytes % (Manual) 6.0 L Monocytes % (Manual) Nucleated RBC % 1.0 H Seg Neutrophils # Seg Neutrophils # Man 19.6 H Lymphocytes # (Manual) Monocytes # (Manual) 0.9 H PT INR POC ABG pH POC ABG pCO2 POC ABG pO2 Sodium Potassium Chloride 90.8 L Carbon Dioxide 21 L BUN 28 H Creatinine 3.1 H Glucose 172 H POC Glucose 182 H Lactic Acid Calcium Phosphorus AST ALT Alkaline Phosphatase Total Creatine Kinase CK-MB (CK-2) Rel Index Troponin T C-Reactive Protein Total Protein Albumin LDL Cholesterol Direct HDL Cholesterol Urine WBC (Auto) Salicylates Hepatitis C Antibody 05/13/17 05/13/17 05/13/17 11:52 18:01 23:31 WBC RBC Hgb Hct MCV MCH RDW Lymph % (Auto) [place] % (Auto) Lymph # [place] # Baso # Seg Neutrophils % Seg Neuts % (Manual) Lymphocytes % (Manual) Monocytes % (Manual) Nucleated RBC % Seg Neutrophils # Seg Neutrophils # Man Lymphocytes # (Manual) Monocytes # (Manual) PT INR POC ABG pH POC ABG pCO2 POC ABG pO2 Sodium Potassium Chloride Carbon Dioxide BUN Creatinine Glucose POC Glucose 185 H 216 H 281 H Lactic Acid Calcium Phosphorus AST ALT Alkaline Phosphatase Total Creatine Kinase CK-MB (CK-2) Rel Index Troponin T C-Reactive Protein Total Protein Albumin LDL Cholesterol Direct HDL Cholesterol Urine WBC (Auto) Salicylates Hepatitis C Antibody 05/14/17 05/14/17 05/14/17 05:43 06:10 06:10 WBC 19.6 H RBC 3.61 L Hgb Hct MCV 104 H MCH 34 H RDW 23.4 H Lymph % (Auto) 8.6 L [place] % (Auto) Lymph # [place] # 1.3 H Baso # 0.2 H Seg Neutrophils % 82.5 H Seg Neuts % (Manual) Lymphocytes % (Manual) Monocytes % (Manual) Nucleated RBC % Seg Neutrophils # 16.2 H Seg Neutrophils # Man Lymphocytes # (Manual) Monocytes # (Manual) PT INR POC ABG pH POC ABG pCO2 POC ABG pO2 Sodium Potassium 3.4 L Chloride 89.1 L Carbon Dioxide BUN 32 H Creatinine 3.0 H Glucose 224 H POC Glucose 215 H Lactic Acid Calcium Phosphorus AST 85 H ALT 162 H Alkaline Phosphatase 347 H Total Creatine Kinase CK-MB (CK-2) Rel Index Troponin T C-Reactive Protein Total Protein 8.5 H Albumin LDL Cholesterol Direct HDL Cholesterol Urine WBC (Auto) Salicylates Hepatitis C Antibody 05/14/17 05/14/17 05/14/17 08:32 11:26 16:42 WBC RBC Hgb Hct MCV MCH RDW Lymph % (Auto) [place] % (Auto) Lymph # [place] # Baso # Seg Neutrophils % Seg Neuts % (Manual) Lymphocytes % (Manual) Monocytes % (Manual) Nucleated RBC % Seg Neutrophils # Seg Neutrophils # Man Lymphocytes # (Manual) Monocytes # (Manual) PT INR POC ABG pH POC ABG pCO2 POC ABG pO2 Sodium Potassium Chloride Carbon Dioxide BUN Creatinine Glucose POC Glucose 204 H 182 H 310 H Lactic Acid Calcium Phosphorus AST ALT Alkaline Phosphatase Total Creatine Kinase CK-MB (CK-2) Rel Index Troponin T C-Reactive Protein Total Protein Albumin LDL Cholesterol Direct HDL Cholesterol Urine WBC (Auto) Salicylates Hepatitis C Antibody 05/14/17 05/15/17 05/15/17 23:00 03:45 03:45 WBC 18.3 H RBC 3.42 L Hgb Hct MCV 105 H MCH 34 H RDW 23.0 H Lymph % (Auto) 10.4 L [place] % (Auto) 7.7 H Lymph # [place] # 1.4 H Baso # Seg Neutrophils % 79.5 H Seg Neuts % (Manual) Lymphocytes % (Manual) Monocytes % (Manual) Nucleated RBC % Seg Neutrophils # 14.6 H Seg Neutrophils # Man Lymphocytes # (Manual) Monocytes # (Manual) PT INR POC ABG pH POC ABG pCO2 POC ABG pO2 Sodium 132 L Potassium Chloride 88.4 L Carbon Dioxide BUN 29 H Creatinine 2.8 H Glucose 310 H POC Glucose 264 H Lactic Acid Calcium Phosphorus AST 54 H ALT 111 H Alkaline Phosphatase 318 H Total Creatine Kinase CK-MB (CK-2) Rel Index Troponin T C-Reactive Protein Total Protein Albumin 3.7 L LDL Cholesterol Direct HDL Cholesterol Urine WBC (Auto) Salicylates Hepatitis C Antibody 05/15/17 05/15/17 05/15/17 07:36 12:14 12:15 WBC RBC Hgb Hct MCV MCH RDW Lymph % (Auto) [place] % (Auto) Lymph # [place] # Baso # Seg Neutrophils % Seg Neuts % (Manual) Lymphocytes % (Manual) Monocytes % (Manual) Nucleated RBC % Seg Neutrophils # Seg Neutrophils # Man Lymphocytes # (Manual) Monocytes # (Manual) PT INR POC ABG pH POC ABG pCO2 POC ABG pO2 Sodium Potassium Chloride Carbon Dioxide BUN Creatinine Glucose POC Glucose 253 H > 500 H Lactic Acid Calcium Phosphorus AST ALT Alkaline Phosphatase Total Creatine Kinase CK-MB (CK-2) Rel Index Troponin T C-Reactive Protein 14.70 H Total Protein Albumin LDL Cholesterol Direct HDL Cholesterol Urine WBC (Auto) Salicylates Hepatitis C Antibody 05/15/17 05/15/17 05/15/17 12:15 15:43 22:26 WBC RBC Hgb Hct MCV MCH RDW Lymph % (Auto) [place] % (Auto) Lymph # [place] # Baso # Seg Neutrophils % Seg Neuts % (Manual) Lymphocytes % (Manual) Monocytes % (Manual) Nucleated RBC % Seg Neutrophils # Seg Neutrophils # Man Lymphocytes # (Manual) Monocytes # (Manual) PT INR POC ABG pH POC ABG pCO2 POC ABG pO2 Sodium Potassium Chloride Carbon Dioxide BUN Creatinine Glucose 336 H POC Glucose 288 H 243 H Lactic Acid Calcium Phosphorus AST ALT Alkaline Phosphatase Total Creatine Kinase CK-MB (CK-2) Rel Index Troponin T C-Reactive Protein Total Protein Albumin LDL Cholesterol Direct HDL Cholesterol Urine WBC (Auto) Salicylates Hepatitis C Antibody 05/16/17 05/16/17 05/16/17 04:00 04:00 07:26 WBC 23.5 H RBC 3.25 L Hgb Hct MCV 106 H MCH 33 H RDW 23.2 H Lymph % (Auto) [place] % (Auto) Lymph # [place] # Baso # Seg Neutrophils % Seg Neuts % (Manual) Lymphocytes % (Manual) 9.0 L Monocytes % (Manual) 14.0 H Nucleated RBC % Seg Neutrophils # Seg Neutrophils # Man 15.3 H Lymphocytes # (Manual) Monocytes # (Manual) 3.3 H PT INR POC ABG pH POC ABG pCO2 POC ABG pO2 Sodium Potassium Chloride 91.5 L Carbon Dioxide BUN 48 H Creatinine 4.5 H D Glucose POC Glucose 107 H Lactic Acid Calcium Phosphorus AST ALT Alkaline Phosphatase Total Creatine Kinase CK-MB (CK-2) Rel Index Troponin T C-Reactive Protein Total Protein Albumin LDL Cholesterol Direct HDL Cholesterol Urine WBC (Auto) Salicylates Hepatitis C Antibody 05/16/17 05/16/17 05/16/17 11:57 17:14 21:30 WBC RBC Hgb Hct MCV MCH RDW Lymph % (Auto) [place] % (Auto) Lymph # [place] # Baso # Seg Neutrophils % Seg Neuts % (Manual) Lymphocytes % (Manual) Monocytes % (Manual) Nucleated RBC % Seg Neutrophils # Seg Neutrophils # Man Lymphocytes # (Manual) Monocytes # (Manual) PT INR POC ABG pH POC ABG pCO2 POC ABG pO2 Sodium Potassium Chloride Carbon Dioxide BUN Creatinine Glucose POC Glucose 190 H 200 H 152 H Lactic Acid Calcium Phosphorus AST ALT Alkaline Phosphatase Total Creatine Kinase CK-MB (CK-2) Rel Index Troponin T C-Reactive Protein Total Protein Albumin LDL Cholesterol Direct HDL Cholesterol Urine WBC (Auto) Salicylates Hepatitis C Antibody 05/17/17 05/17/17 05/17/17 04:45 04:45 08:20 WBC 16.7 H RBC 3.08 L Hgb Hct MCV 106 H MCH 33 H RDW 23.3 H Lymph % (Auto) 3.8 L [place] % (Auto) Lymph # 0.6 L [place] # 1.1 H Baso # 0.2 H Seg Neutrophils % 87.5 H Seg Neuts % (Manual) Lymphocytes % (Manual) Monocytes % (Manual) Nucleated RBC % Seg Neutrophils # 14.6 H Seg Neutrophils # Man Lymphocytes # (Manual) Monocytes # (Manual) PT INR POC ABG pH POC ABG pCO2 POC ABG pO2 Sodium 134 L Potassium Chloride 89.3 L Carbon Dioxide 21 L BUN 60 H Creatinine 6.1 H Glucose POC Glucose 107 H Lactic Acid Calcium Phosphorus AST ALT Alkaline Phosphatase 226 H Total Creatine Kinase CK-MB (CK-2) Rel Index Troponin T C-Reactive Protein Total Protein Albumin 3.5 L LDL Cholesterol Direct HDL Cholesterol Urine WBC (Auto) Salicylates Hepatitis C Antibody 05/17/17 05/17/17 05/17/17 11:24 16:24 21:34 WBC RBC Hgb Hct MCV MCH RDW Lymph % (Auto) [place] % (Auto) Lymph # [place] # Baso # Seg Neutrophils % Seg Neuts % (Manual) Lymphocytes % (Manual) Monocytes % (Manual) Nucleated RBC % Seg Neutrophils # Seg Neutrophils # Man Lymphocytes # (Manual) Monocytes # (Manual) PT INR POC ABG pH POC ABG pCO2 POC ABG pO2 Sodium Potassium Chloride Carbon Dioxide BUN Creatinine Glucose POC Glucose 172 H 116 H 182 H Lactic Acid Calcium Phosphorus AST ALT Alkaline Phosphatase Total Creatine Kinase CK-MB (CK-2) Rel Index Troponin T C-Reactive Protein Total Protein Albumin LDL Cholesterol Direct HDL Cholesterol Urine WBC (Auto) Salicylates Hepatitis C Antibody 05/18/17 05/18/17 05/18/17 05:06 08:01 11:32 WBC RBC Hgb Hct MCV MCH RDW Lymph % (Auto) [place] % (Auto) Lymph # [place] # Baso # Seg Neutrophils % Seg Neuts % (Manual) Lymphocytes % (Manual) Monocytes % (Manual) Nucleated RBC % Seg Neutrophils # Seg Neutrophils # Man Lymphocytes # (Manual) Monocytes # (Manual) PT INR POC ABG pH POC ABG pCO2 POC ABG pO2 Sodium Potassium Chloride Carbon Dioxide BUN Creatinine Glucose POC Glucose 153 H 145 H 247 H Lactic Acid Calcium Phosphorus AST ALT Alkaline Phosphatase Total Creatine Kinase CK-MB (CK-2) Rel Index Troponin T C-Reactive Protein Total Protein Albumin LDL Cholesterol Direct HDL Cholesterol Urine WBC (Auto) Salicylates Hepatitis C Antibody 05/18/17 05/18/17 05/19/17 16:09 22:17 03:00 WBC RBC 2.88 L Hgb 9.8 L Hct 30.2 L MCV 105 H MCH 34 H RDW 23.6 H Lymph % (Auto) 7.1 L [place] % (Auto) Lymph # 0.5 L [place] # Baso # Seg Neutrophils % 86.5 H Seg Neuts % (Manual) Lymphocytes % (Manual) Monocytes % (Manual) Nucleated RBC % Seg Neutrophils # Seg Neutrophils # Man Lymphocytes # (Manual) Monocytes # (Manual) PT INR POC ABG pH POC ABG pCO2 POC ABG pO2 Sodium Potassium Chloride Carbon Dioxide BUN Creatinine Glucose POC Glucose 237 H 162 H Lactic Acid Calcium Phosphorus AST ALT Alkaline Phosphatase Total Creatine Kinase CK-MB (CK-2) Rel Index Troponin T C-Reactive Protein Total Protein Albumin LDL Cholesterol Direct HDL Cholesterol Urine WBC (Auto) Salicylates Hepatitis C Antibody 05/19/17 05/19/17 05/19/17 03:00 07:19 21:30 WBC RBC Hgb Hct MCV MCH RDW Lymph % (Auto) [place] % (Auto) Lymph # [place] # Baso # Seg Neutrophils % Seg Neuts % (Manual) Lymphocytes % (Manual) Monocytes % (Manual) Nucleated RBC % Seg Neutrophils # Seg Neutrophils # Man Lymphocytes # (Manual) Monocytes # (Manual) PT INR POC ABG pH POC ABG pCO2 POC ABG pO2 Sodium 136 L Potassium Chloride 90.1 L Carbon Dioxide BUN 49 H Creatinine 4.8 H Glucose 126 H POC Glucose 128 H 145 H Lactic Acid Calcium Phosphorus AST ALT Alkaline Phosphatase Total Creatine Kinase CK-MB (CK-2) Rel Index Troponin T C-Reactive Protein Total Protein Albumin LDL Cholesterol Direct HDL Cholesterol Urine WBC (Auto) Salicylates Hepatitis C Antibody 05/20/17 05/20/17 05/20/17 05:00 05:00 07:34 WBC RBC 3.12 L Hgb Hct MCV 106 H MCH 33 H RDW 23.7 H Lymph % (Auto) [place] % (Auto) Lymph # [place] # Baso # Seg Neutrophils % Seg Neuts % (Manual) 93.0 H Lymphocytes % (Manual) 3.0 L Monocytes % (Manual) Nucleated RBC % Seg Neutrophils # Seg Neutrophils # Man 9.8 H Lymphocytes # (Manual) 0.3 L Monocytes # (Manual) PT INR POC ABG pH POC ABG pCO2 POC ABG pO2 Sodium Potassium Chloride 95.5 L Carbon Dioxide BUN 29 H Creatinine 2.9 H Glucose 167 H POC Glucose 182 H Lactic Acid Calcium Phosphorus AST ALT Alkaline Phosphatase 195 H Total Creatine Kinase CK-MB (CK-2) Rel Index Troponin T C-Reactive Protein Total Protein Albumin 3.6 L LDL Cholesterol Direct HDL Cholesterol Urine WBC (Auto) Salicylates Hepatitis C Antibody 05/20/17 05/20/17 05/20/17 11:33 15:52 22:59 WBC RBC Hgb Hct MCV MCH RDW Lymph % (Auto) [place] % (Auto) Lymph # [place] # Baso # Seg Neutrophils % Seg Neuts % (Manual) Lymphocytes % (Manual) Monocytes % (Manual) Nucleated RBC % Seg Neutrophils # Seg Neutrophils # Man Lymphocytes # (Manual) Monocytes # (Manual) PT INR POC ABG pH POC ABG pCO2 POC ABG pO2 Sodium Potassium Chloride Carbon Dioxide BUN Creatinine Glucose POC Glucose 206 H 164 H 121 H Lactic Acid Calcium Phosphorus AST ALT Alkaline Phosphatase Total Creatine Kinase CK-MB (CK-2) Rel Index Troponin T C-Reactive Protein Total Protein Albumin LDL Cholesterol Direct HDL Cholesterol Urine WBC (Auto) Salicylates Hepatitis C Antibody 05/21/17 05/21/17 05/21/17 04:09 04:09 12:35 WBC 13.8 H RBC 3.32 L Hgb Hct MCV 106 H MCH 34 H RDW 23.7 H Lymph % (Auto) 8.3 L [place] % (Auto) Lymph # 1.1 L [place] # Baso # Seg Neutrophils % 87.2 H Seg Neuts % (Manual) Lymphocytes % (Manual) Monocytes % (Manual) Nucleated RBC % Seg Neutrophils # 12.0 H Seg Neutrophils # Man Lymphocytes # (Manual) Monocytes # (Manual) PT INR POC ABG pH POC ABG pCO2 POC ABG pO2 Sodium Potassium Chloride 90.6 L Carbon Dioxide BUN 59 H Creatinine 4.1 H Glucose 112 H POC Glucose 128 H Lactic Acid Calcium 8.2 L Phosphorus AST ALT Alkaline Phosphatase 191 H Total Creatine Kinase CK-MB (CK-2) Rel Index Troponin T C-Reactive Protein Total Protein Albumin 3.7 L LDL Cholesterol Direct HDL Cholesterol Urine WBC (Auto) Salicylates Hepatitis C Antibody 05/21/17 05/21/17 05/22/17 16:35 21:35 06:18 WBC RBC Hgb Hct MCV MCH RDW Lymph % (Auto) [place] % (Auto) Lymph # [place] # Baso # Seg Neutrophils % Seg Neuts % (Manual) Lymphocytes % (Manual) Monocytes % (Manual) Nucleated RBC % Seg Neutrophils # Seg Neutrophils # Man Lymphocytes # (Manual) Monocytes # (Manual) PT INR POC ABG pH POC ABG pCO2 POC ABG pO2 Sodium Potassium Chloride Carbon Dioxide BUN Creatinine Glucose POC Glucose 116 H 121 H 132 H Lactic Acid Calcium Phosphorus AST ALT Alkaline Phosphatase Total Creatine Kinase CK-MB (CK-2) Rel Index Troponin T C-Reactive Protein Total Protein Albumin LDL Cholesterol Direct HDL Cholesterol Urine WBC (Auto) Salicylates Hepatitis C Antibody 05/22/17 05/23/17 05/23/17 11:52 05:53 05:53 WBC 22.5 H RBC 3.49 L Hgb Hct MCV 106 H MCH 33 H RDW 23.1 H Lymph % (Auto) [place] % (Auto) Lymph # [place] # Baso # Seg Neutrophils % Seg Neuts % (Manual) Lymphocytes % (Manual) Monocytes % (Manual) Nucleated RBC % Seg Neutrophils # Seg Neutrophils # Man Lymphocytes # (Manual) Monocytes # (Manual) PT INR POC ABG pH POC ABG pCO2 POC ABG pO2 Sodium Potassium Chloride 93.7 L Carbon Dioxide BUN 60 H Creatinine 4.6 H Glucose 101 H POC Glucose 133 H Lactic Acid Calcium Phosphorus 4.60 H AST ALT Alkaline Phosphatase Total Creatine Kinase CK-MB (CK-2) Rel Index Troponin T C-Reactive Protein Total Protein Albumin LDL Cholesterol Direct HDL Cholesterol Urine WBC (Auto) Salicylates Hepatitis C Antibody 05/23/17 05/24/17 05/24/17 21:35 06:52 12:10 WBC RBC Hgb Hct MCV MCH RDW Lymph % (Auto) [place] % (Auto) Lymph # [place] # Baso # Seg Neutrophils % Seg Neuts % (Manual) Lymphocytes % (Manual) Monocytes % (Manual) Nucleated RBC % Seg Neutrophils # Seg Neutrophils # Man Lymphocytes # (Manual) Monocytes # (Manual) PT INR POC ABG pH POC ABG pCO2 POC ABG pO2 Sodium Potassium Chloride Carbon Dioxide BUN Creatinine Glucose POC Glucose 108 H 119 H 135 H Lactic Acid Calcium Phosphorus AST ALT Alkaline Phosphatase Total Creatine Kinase CK-MB (CK-2) Rel Index Troponin T C-Reactive Protein Total Protein Albumin LDL Cholesterol Direct HDL Cholesterol Urine WBC (Auto) Salicylates Hepatitis C Antibody 05/24/17 05/24/17 05/25/17 16:45 22:03 04:59 WBC 14.4 H RBC 3.26 L Hgb Hct MCV 106 H MCH 33 H RDW 23.1 H Lymph % (Auto) 9.7 L [place] % (Auto) 9.0 H Lymph # [place] # 1.3 H Baso # Seg Neutrophils % 80.2 H Seg Neuts % (Manual) Lymphocytes % (Manual) Monocytes % (Manual) Nucleated RBC % Seg Neutrophils # 11.5 H Seg Neutrophils # Man Lymphocytes # (Manual) Monocytes # (Manual) PT INR POC ABG pH POC ABG pCO2 POC ABG pO2 Sodium Potassium Chloride Carbon Dioxide BUN Creatinine Glucose POC Glucose 152 H 114 H Lactic Acid Calcium Phosphorus AST ALT Alkaline Phosphatase Total Creatine Kinase CK-MB (CK-2) Rel Index Troponin T C-Reactive Protein Total Protein Albumin LDL Cholesterol Direct HDL Cholesterol Urine WBC (Auto) Salicylates Hepatitis C Antibody 05/25/17 04:59 WBC RBC Hgb Hct MCV MCH RDW Lymph % (Auto) [place] % (Auto) Lymph # [place] # Baso # Seg Neutrophils % Seg Neuts % (Manual) Lymphocytes % (Manual) Monocytes % (Manual) Nucleated RBC % Seg Neutrophils # Seg Neutrophils # Man Lymphocytes # (Manual) Monocytes # (Manual) PT INR POC ABG pH POC ABG pCO2 POC ABG pO2 Sodium 134 L D Potassium Chloride 87.1 L Carbon Dioxide BUN 36 H Creatinine 3.6 H Glucose 102 H POC Glucose Lactic Acid Calcium 8.2 L Phosphorus AST ALT Alkaline Phosphatase Total Creatine Kinase CK-MB (CK-2) Rel Index Troponin T C-Reactive Protein Total Protein Albumin LDL Cholesterol Direct HDL Cholesterol Urine WBC (Auto) Salicylates Hepatitis C Antibody Chest x-ray: report reviewed, image reviewed (improving bilateral infiltrates)
[2017-05-25] MEDS: FLEXERIL PO PRN (22:11)
[2017-05-26] MEDS: TUMS PO PRN (00:08)
[2017-05-26] MEDS: PROAMATINE PO SCH ×2 (03:35→12:41)
[2017-05-26] MEDS: ZOFRAN IV PRN ×2 (04:39→12:42)
[2017-05-26] MEDS: NEURONTIN PO SCH (05:16)
[2017-05-26 06:13] LABS: Hematocrit 27.3 % (30.3-42.9); Hemoglobin 8.8 gm/dl (10.1-14.3); Mean Corpuscular HGB Conc 32 % (30-34); Mean Corpuscular Hemoglobin 33 pg (28-32); Mean Corpuscular Volume 104 fl (79-97); Platelet Count 280 K/mm3 (140-440); Red Blood Count 2.63 M/mm3 (3.65-5.03)
[2017-05-26 06:15] LABS: Red Cell Distribution Width 23.4 % (13.2-15.2)
[2017-05-26 06:38] LABS: Calcium 8.2 mg/dL (8.4-10.2)
[2017-05-26] MEDS: NOVOLOG SUB-Q SCH ×2 (07:51→12:42)
[2017-05-26 08:09] LABS: Band Neutrophils # (Manual) 0.3 K/mm3; Eosinophils % (Manual) 0 % (0.0-4.3); Total Cells Counted 100
[2017-05-26 08:10] LABS: Anisocytosis 2+; Basophils % (Manual) 0 % (0.0-1.8); Spherocytes Few
[2017-05-26] MEDS ORDERED: NACL 0.9% 100 ML IV PRN (09:27)
[2017-05-26] MEDS: PROVENTIL IH SCH (09:58)
[2017-05-26] MEDS: HEPARIN SUB-Q SCH (10:00)
[2017-05-26] MEDS: RENVELA PO SCH ×2 (10:00→12:41)
--- NOTE | 2017-05-26 11:08 | Discharge Summary ---
<SHELBIE KENDRICK - Last Filed: 05/26/17 11:41> Providers - Providers Date of Admission: 05/09/17 00:46 Date of discharge: 05/26/17 Attending physician: ROSALINDA BEYER 05/08/17 21:06 Consult to Physician [CONS] Stat Consulting Provider: RADHA MILLER Reason For Exam: ams resp failure Place consult to:: Dr. Millre Notified:: Answering Service Phone number called:: [phone] Was contact made?: Yes If yes, spoke with:: Dr. Miller Time called:: 21:25 Comment:: Dr. Posada (er dr) spoke with Dr. Miller 05/09/17 06:01 Consult to Physician [CONS] Routine Consulting Provider: CLEVE GOODMAN Reason For Exam: ESRD ON DIALYSIS Place consult to:: Cleve Goodman Notified:: Yes Was contact made?: Yes If yes, spoke with:: Yes Time called:: 10:40 05/10/17 08:17 Consult to Physician [CONS] Routine Consulting Provider: ESDRAS TRUJILLO Reason For Exam: elevated CE,h/o CAD s/p PCI Place consult to:: [facility] Notified:: Y Comment:: ADDED TO LIST 05/11/17 12:35 Consult to Physician [CONS] Routine Consulting Provider: CHERI BOUDREAUX Reason For Exam: ector pneumonia/sputum + MRSA Place consult to:: id Notified:: yes Was contact made?: Yes If yes, spoke with:: Dr Pritchard 05/12/17 13:46 Consult to Interventional Radiology [CONS] Urgent Consulting Provider: JONE CRUZ Reason For Exam: TLC access Notified:: no 05/15/17 15:20 Speech Therapy Evaluation and Treat [CONS] Routine Reason For Exam: recurrent pneumonia, r/o aspiration 05/18/17 12:35 Consult to Wound/ET Nurse [CONS] Routine Reason For Exam: upper back wound 05/21/17 12:19 Physical Therapy Evaluation and Treat [CONS] Routine Comment: Reason For Exam: deconditioning/placement 05/22/17 15:16 Consult to Mental Health [CONS] Routine Reason For Exam: Delusions Place consult to:: [facility] Notified:: Phone number called:: IN HOUSE Was contact made?: Yes If yes, spoke with:: SHARON Time called:: 18:18 Comment:: SAIGE NOTIFIED Primary care physician: PATIENT SERVICES SPECIALIST Hospitalization Hospital course: Patient is a 56-year-old female with past medical history of end-stage renal disease on dialysis, diabetes, hypertension, high cholesterol and heart disease who presentes to the Emergency Department y EMS for generalized weakness. Patient found to be hypotensive, low-grade temperature of 100.2, tachycardic; She was very difficult to arouse unable protecting her airway, Therefore, she was intubated. She was diagnosed Sepsis due to MRSA pneumonia,on Zyvox Leukocytosis,Type 2 diabetes mellitus,Acute on chronic respiratory failure; secondary to fluid overload/MRSA pneumonia, Metabolic encephalopathy,Dysphagia Coronary artery disease s/p PCI,Cardiomyopathy, End-stage renal disease on hemodialysis,Dyslipidemia and Diarrhea. She was treated with IV fluid, and IV antibiotics. Patient completed a full course of antibiotic. No further antibiotic needed. Patient currently extubated; alert and oriented to person, place,time and situation. Dysphagia. Speech therapy reports Moderate oral dysphagia with mechanical soft food characterized by poor mastication skills due to missing dentition. Moderate-severe pharyngeal dysphagia with mechanical soft and thin liquids characterized by intermittent s/s of aspiration. Pt. is not safe on a regular diet. Findings were discussed with the patient. Patient clinically improved and stable for discharge. Patient was advised to follow up with her primary care provider. Discharge Diagnosed Sepsis due to MRSA pneumonia,on Zyvox Leukocytosis Type 2 diabetes mellitus Acute on chronic respiratory failure; secondary to fluid overload/MRSA pneumonia Metabolic encephalopathy Dysphagia Coronary artery disease s/p PCI Cardiomyopathy End-stage renal disease on hemodialysis Dyslipidemia Diarrhea Disposition: DC/TX-03 [facility] C[facility] Time spent for discharge: 37 minutes Core Measure Documentation - Palliative Care Palliative Care/ Comfort Measures: Not Applicable - Core Measures Any of the following diagnoses?: none Exam - Constitutional Vitals: Temp Pulse Resp BP Pulse Ox 98.5 F 81 16 87/52 100 05/26/17 07:24 05/26/17 07:24 05/26/17 07:24 05/26/17 07:24 05/26/17 09:54 General appearance: Present: no acute distress - EENT Eyes: Present: PERRL ENT: hearing intact - Neck Neck: Present: supple - Respiratory Respiratory effort: normal Respiratory: bilateral: CTA - Cardiovascular Rhythm: regular Heart Sounds: Present: S1 & S2 - Abdominal General gastrointestinal: Present: soft, non-tender Female genitourinary: Present: deferred - Rectal Rectal Exam: deferred - Integumentary Integumentary: Present: clear, warm, dry - Musculoskeletal Musculoskeletal: strength equal bilaterally - Psychiatric Psychiatric: appropriate mood/affect - Neurologic Neurologic: moves all extremities - Allied Health Allied health notes reviewed: nursing Plan Diet: low fat, low cholesterol, low salt Follow up with: PRIMARY CARE, [Primary Care Provider] - 3-5 Days <ROSALINDA BEYER - Last Filed: 05/26/17 15:11> Providers - Providers Date of Admission: 05/09/17 00:46 Attending physician: ROSALINDA BEYER 05/08/17 21:06 Consult to Physician [CONS] Stat Consulting Provider: RADHA MILLER Reason For Exam: ams resp failure Place consult to:: Dr. Miller Notified:: Answering Service Phone number called:: [phone] Was contact made?: Yes If yes, spoke with:: Dr. Miller Time called:: 21:25 Comment:: Dr. Posada (er dr) spoke with Dr. Miller 05/09/17 06:01 Consult to Physician [CONS] Routine Consulting Provider: CLEVE GOODMAN Reason For Exam: ESRD ON DIALYSIS Place consult to:: Cleve Goodman Notified:: Yes Was contact made?: Yes If yes, spoke with:: Yes Time called:: 10:40 05/10/17 08:17 Consult to Physician [CONS] Routine Consulting Provider: ESDRAS TRUJILLO Reason For Exam: elevated CE,h/o CAD s/p PCI Place consult to:: [facility] Notified:: Y Comment:: ADDED TO LIST 05/11/17 12:35 Consult to Physician [CONS] Routine Consulting Provider: CHERI BOUDREAUX Reason For Exam: ector pneumonia/sputum + MRSA Place consult to:: id Notified:: yes Was contact made?: Yes If yes, spoke with:: Dr Pritchard 05/12/17 13:46 Consult to Interventional Radiology [CONS] Urgent Consulting Provider: JONE CRUZ Reason For Exam: TLC access Notified:: no 05/15/17 15:20 Speech Therapy Evaluation and Treat [CONS] Routine Reason For Exam: recurrent pneumonia, r/o aspiration 05/18/17 12:35 Consult to Wound/ET Nurse [CONS] Routine Reason For Exam: upper back wound 05/21/17 12:19 Physical Therapy Evaluation and Treat [CONS] Routine Comment: Reason For Exam: deconditioning/placement 05/22/17 15:16 Consult to Mental Health [CONS] Routine Reason For Exam: Delusions Place consult to:: [facility] Notified:: Phone number called:: IN HOUSE Was contact made?: Yes If yes, spoke with:: SHARON Time called:: 18:18 Comment:: SAIGE NOTIFIED Primary care physician: PATIENT SERVICES SPECIALIST Exam - Constitutional Vitals: Temp Pulse Resp BP Pulse Ox 98.0 F 81 16 97/59 100 05/26/17 11:18 05/26/17 07:24 05/26/17 11:18 05/26/17 11:18 05/26/17 09:54
[2017-05-26] MEDS ORDERED: TRIPLE ANTIBIOTIC TP ONE (12:28)
[2017-05-26] MEDS: HABITROL TD SCH (12:39)
[2017-05-26] MEDS: SENSIPAR PO SCH (12:39)
[2017-05-26] MEDS: BABY ASPIRIN PO SCH (12:40)
[2017-05-26] MEDS: ZOLOFT PO SCH (12:40)
[2017-05-26 13:09] VITALS: BP 97/59
--- NOTE | 2017-05-26 13:29 | Progress Note ---
Assessment and Plan ESRD on hemodialysis: -Via LUE AVF -On TTS HD outpatient. s/p HD wednesday. No HD indication today, Pt to be d/c today and will go to her HD unit for HD tomorrow. -Renally dose all meds -Check CBC, BMP, Mg, Phos daily Hypoxic Respiratory failure: -Improved. Per primary Sepsis possibly due to urinary tract infection/Pneumonia -Per ID and Pulm Systolic acute on chronic congestive heart failure: -Gets UF with HD -Per primary Diabetes mellitus type 2: -Per primary Hypotension: -On Midodrine for BP support. Continue. Hyperlipidemia, chronic: -Continue statin -Target LDL <70 Anemia of chronic disease due to ESRD: -Epogen to keep Hg 10-12 Secondary hyperparathyroidism: -Can continue sensipar Plan d/w bedside RN. Pillo Goodman MD Nephrology, Hypertension, Dialysis, Transplantation Phone no: [phone] Subjective Date of service: 05/26/17 Principal diagnosis: MRSA pneumonia, shock,sepsis,ESRD Interval history: Plan for D/C today. Denies Cp/SHOB. Objective - Exam Narrative Exam: GE: AAOX3 HEENT: PERRLA Neck: No JVD CVS: RRR Chest: CTAB Abd: Soft/ND, BS+ Ext: No cce, LUE AVF with good thrill Neuro: AAOX3 - Vital Signs Vital signs: Vital Signs - 12hr 05/26/17 05/26/17 05/26/17 04:28 07:24 09:54 Temperature 98.0 F 98.5 F Pulse Rate 90 81 Respiratory 16 16 Rate Blood Pressure 88/51 87/52 O2 Sat by Pulse 99 100 100 Oximetry 05/26/17 11:18 Temperature 98.0 F Pulse Rate Respiratory 16 Rate Blood Pressure 97/59 O2 Sat by Pulse Oximetry - Lab 05/26/17 05:52 05/26/17 05:52 Most recent lab results Calcium 8.2 mg/dL (8.4-10.2) L 05/26/17 05:52 Phosphorus 4.60 mg/dL (2.5-4.5) H 05/23/17 05:53 Magnesium 2.20 mg/dL (1.7-2.3) 05/19/17 03:00
--- NOTE | 2017-05-26 13:47 | Progress Note ---
Assessment and Plan Imp: 1. HCAP, presumed MRSA 2. Sepsis w/ septic shock 3. ESRD 4. A/C respiratory failure, hypoxia 5. Ischemic cardiomyopathy/CAD 6. Pulm HTN 7. ? COPD Rec: 1. Finished ABX 2. Midodrine 3. Diet per ST 4. DVT PPx 5. D/c smoking 6. Outpatient PFTs 7. Mobilize 8. F/u another CXR as outpatient; can see us 1-2 weeks after d/c; may be discharged to SNF [facility] Plan of care reviewed w/ patient, she understands/agrees Subjective Date of service: 05/26/17 Principal diagnosis: MRSA pneumonia, shock,sepsis,ESRD Interval history: No events. On 2L NC. Awake, alert. SOB is better. Minimal cough, congestion. No chest pain. No new complaints. Active Medications Acetaminophen (Tylenol) 650 mg PO Q4H PRN PRN Reason: Pain, Mild (1-3) Last Admin: 05/24/17 23:21 Dose: 650 mg Albuterol (Proventil) 2.5 mg IH TIDRT [facility] Last Admin: 05/26/17 09:58 Dose: Not Given Aspirin (Baby Aspirin) 81 mg PO QDAY [facility] Last Admin: 05/26/17 12:40 Dose: 81 mg Atorvastatin Calcium (Lipitor) 40 mg PO DAILY [facility] Last Admin: 05/26/17 12:40 Dose: 40 mg Calcium Carbonate/Glycine (Tums) 500 mg PO Q4H PRN PRN Reason: Indigestion Last Admin: 05/26/17 00:08 Dose: 500 mg Cinacalcet (Sensipar) 30 mg PO BID [facility] Last Admin: 05/26/17 12:39 Dose: 30 mg Cyclobenzaprine HCl (Flexeril) 10 mg PO TID PRN PRN Reason: Muscle Spasm Last Admin: 05/25/17 22:11 Dose: 10 mg Gabapentin (Neurontin) 300 mg PO Q8HR [facility] Last Admin: 05/26/17 05:16 Dose: 300 mg Heparin Sodium (Porcine) (Heparin) 5,000 unit SUB-Q Q12HR [facility] Last Admin: 05/25/17 22:11 Dose: 5,000 unit Hydrophilic Ointment (Vaseline Lip Therapy) 1 applic TP Q2HR PRN PRN Reason: Dry Lips Sodium Chloride (Nacl 0.9%) 100 mls @ 999 mls/hr IV GISSELL PRN PRN Reason: Hypotension Insulin Aspart (Novolog) 0 units SUB-Q ACHS [facility] PRN Reason: Protocol Last Admin: 05/26/17 12:42 Dose: Not Given Insulin Human Isoph/Insulin Regular (Novolin 70/30) 10 unit SUB-Q BIDDIAB [facility] Last Admin: 05/26/17 08:00 Dose: Not Given Midodrine (Proamatine) 10 mg PO Q8H [facility] Last Admin: 05/26/17 12:41 Dose: 10 mg Multi-Ingred Cream/Lotion/Oil/Oint (Artificial Tears Ophth Oint) 1 applic OU Q4HR PRN PRN Reason: Dry Eye(s) Nicotine (Habitrol) 21 mg TD QDAY [facility] Last Admin: 05/26/17 12:39 Dose: 21 mg Ondansetron HCl (Zofran) 4 mg IV Q8H PRN PRN Reason: Nausea And Vomiting Last Admin: 05/26/17 12:42 Dose: 4 mg Sertraline HCl (Zoloft) 50 mg PO QDAY [facility] Last Admin: 05/26/17 12:40 Dose: 50 mg Sevelamer Carbonate (Renvela) 800 mg PO TIDWM [facility] Last Admin: 05/26/17 12:41 Dose: 800 mg Objective Vital Signs - 12hr 05/26/17 05/26/17 05/26/17 04:28 07:24 09:54 Temperature 98.0 F 98.5 F Pulse Rate 90 81 Respiratory 16 16 Rate Blood Pressure 88/51 87/52 O2 Sat by Pulse 99 100 100 Oximetry 05/26/17 11:18 Temperature 98.0 F Pulse Rate Respiratory 16 Rate Blood Pressure 97/59 O2 Sat by Pulse Oximetry Constitutional: no acute distress, alert ENT: oropharynx moist Neck: supple Effort: normal Ascultation: Bilateral: clear Cardiovascular: regular rate and rhythm (no mrg) Gastrointestinal: normoactive bowel sounds, soft, non-tender Integumentary: other (Patsy left-sided face) Extremities: no cyanosis, no edema Neurologic: normal mental status, non-focal exam, pupils equal and round, CN II- XII normal, motor strength normal and Psychiatric: mood appropriate, affect normal CBC and BMP: 05/26/17 05:52 05/26/17 05:52 ABG, PT/INR, D-dimer: ABG POC ABG pH 7.450 (7.35-7.45) 05/12/17 13:10 POC ABG pCO2 36.7 (35-45) 05/12/17 13:10 POC ABG pO2 66 (80-105) L 05/12/17 13:10 POC ABG HCO3 25.5 05/12/17 13:10 POC ABG Total CO2 27 05/12/17 13:10 POC ABG O2 Sat 94 05/12/17 13:10 PT/INR, D-dimer PT 14.4 Sec. (12.2-14.9) 05/17/17 04:45 INR 1.06 (0.87-1.13) 05/17/17 04:45 Abnormal lab findings: Abnormal Labs 05/08/17 05/08/17 05/08/17 21:25 21:25 21:25 WBC RBC 2.55 L Hgb 8.9 L Hct 28.1 L MCV 111 H MCH 35 H RDW 25.4 H Lymph % (Auto) [place] % (Auto) Lymph # [place] # Baso # Seg Neutrophils % Seg Neuts % (Manual) 92.0 H Lymphocytes % (Manual) 6.0 L Monocytes % (Manual) Nucleated RBC % Seg Neutrophils # Seg Neutrophils # Man 9.3 H Lymphocytes # (Manual) 0.6 L Monocytes # (Manual) PT 15.2 H INR 1.14 H POC ABG pH POC ABG pCO2 POC ABG pO2 Sodium Potassium Chloride Carbon Dioxide BUN Creatinine Glucose POC Glucose Lactic Acid 2.50 H* Calcium Phosphorus AST ALT Alkaline Phosphatase Total Creatine Kinase CK-MB (CK-2) Rel Index Troponin T C-Reactive Protein Total Protein Albumin LDL Cholesterol Direct HDL Cholesterol Urine WBC (Auto) Salicylates Hepatitis C Antibody 05/08/17 05/08/17 05/08/17 21:35 22:04 22:42 WBC RBC Hgb Hct MCV MCH RDW Lymph % (Auto) [place] % (Auto) Lymph # [place] # Baso # Seg Neutrophils % Seg Neuts % (Manual) Lymphocytes % (Manual) Monocytes % (Manual) Nucleated RBC % Seg Neutrophils # Seg Neutrophils # Man Lymphocytes # (Manual) Monocytes # (Manual) PT INR POC ABG pH 7.271 L POC ABG pCO2 56.5 H POC ABG pO2 30 L Sodium Potassium Chloride 107.8 H Carbon Dioxide BUN 22 H Creatinine 2.6 H Glucose 202 H POC Glucose Lactic Acid Calcium 7.3 L Phosphorus AST ALT Alkaline Phosphatase 258 H Total Creatine Kinase CK-MB (CK-2) Rel Index Troponin T C-Reactive Protein Total Protein 5.2 L Albumin 2.9 L LDL Cholesterol Direct HDL Cholesterol Urine WBC (Auto) Salicylates < 0.3 L Hepatitis C Antibody 05/08/17 05/09/17 05/09/17 Unknown 00:24 06:00 WBC RBC Hgb Hct MCV MCH RDW Lymph % (Auto) [place] % (Auto) Lymph # [place] # Baso # Seg Neutrophils % Seg Neuts % (Manual) Lymphocytes % (Manual) Monocytes % (Manual) Nucleated RBC % Seg Neutrophils # Seg Neutrophils # Man Lymphocytes # (Manual) Monocytes # (Manual) PT INR POC ABG pH 7.283 L POC ABG pCO2 49.9 H POC ABG pO2 249 H Sodium Potassium Chloride Carbon Dioxide BUN Creatinine Glucose POC Glucose Lactic Acid Calcium Phosphorus AST ALT Alkaline Phosphatase Total Creatine Kinase 19 L CK-MB (CK-2) Rel Index 11.0 H Troponin T 0.612 H* C-Reactive Protein Total Protein Albumin LDL Cholesterol Direct 21 L HDL Cholesterol 27 L Urine WBC (Auto) 16.0 H Salicylates Hepatitis C Antibody 05/09/17 05/09/17 05/09/17 06:00 06:00 08:52 WBC 11.7 H RBC 2.67 L Hgb 9.3 L Hct 30.0 L MCV 112 H MCH 35 H RDW 24.4 H Lymph % (Auto) [place] % (Auto) Lymph # [place] # Baso # Seg Neutrophils % Seg Neuts % (Manual) Lymphocytes % (Manual) Monocytes % (Manual) Nucleated RBC % Seg Neutrophils # Seg Neutrophils # Man Lymphocytes # (Manual) Monocytes # (Manual) PT INR POC ABG pH 7.323 L POC ABG pCO2 POC ABG pO2 143 H Sodium Potassium Chloride Carbon Dioxide BUN 24 H Creatinine 2.9 H Glucose 172 H POC Glucose Lactic Acid Calcium 7.7 L Phosphorus AST ALT Alkaline Phosphatase Total Creatine Kinase CK-MB (CK-2) Rel Index Troponin T C-Reactive Protein Total Protein Albumin LDL Cholesterol Direct HDL Cholesterol Urine WBC (Auto) Salicylates Hepatitis C Antibody 05/09/17 05/09/17 05/11/17 14:00 17:00 06:09 WBC 11.4 H RBC 2.66 L Hgb 9.1 L Hct 29.3 L MCV 110 H MCH 34 H RDW 23.1 H Lymph % (Auto) 4.2 L [place] % (Auto) 12.7 H Lymph # 0.5 L [place] # 1.4 H Baso # Seg Neutrophils % 82.5 H Seg Neuts % (Manual) Lymphocytes % (Manual) Monocytes % (Manual) Nucleated RBC % Seg Neutrophils # 9.4 H Seg Neutrophils # Man Lymphocytes # (Manual) Monocytes # (Manual) PT INR POC ABG pH POC ABG pCO2 POC ABG pO2 Sodium Potassium Chloride Carbon Dioxide BUN Creatinine Glucose POC Glucose Lactic Acid Calcium Phosphorus AST ALT Alkaline Phosphatase Total Creatine Kinase 24 L CK-MB (CK-2) Rel Index 9.1 H Troponin T 0.654 H* C-Reactive Protein Total Protein Albumin LDL Cholesterol Direct HDL Cholesterol Urine WBC (Auto) Salicylates Hepatitis C Antibody Reactive A 05/11/17 05/11/17 05/11/17 06:09 08:20 11:34 WBC RBC Hgb Hct MCV MCH RDW Lymph % (Auto) [place] % (Auto) Lymph # [place] # Baso # Seg Neutrophils % Seg Neuts % (Manual) Lymphocytes % (Manual) Monocytes % (Manual) Nucleated RBC % Seg Neutrophils # Seg Neutrophils # Man Lymphocytes # (Manual) Monocytes # (Manual) PT INR POC ABG pH POC ABG pCO2 POC ABG pO2 Sodium Potassium Chloride 95.6 L Carbon Dioxide 20 L BUN 24 H Creatinine 3.4 H Glucose 134 H POC Glucose 154 H 149 H Lactic Acid Calcium Phosphorus AST ALT Alkaline Phosphatase Total Creatine Kinase CK-MB (CK-2) Rel Index Troponin T C-Reactive Protein Total Protein Albumin LDL Cholesterol Direct HDL Cholesterol Urine WBC (Auto) Salicylates Hepatitis C Antibody 05/11/17 05/11/17 05/11/17 15:30 16:27 21:58 WBC RBC Hgb Hct MCV MCH RDW Lymph % (Auto) [place] % (Auto) Lymph # [place] # Baso # Seg Neutrophils % Seg Neuts % (Manual) Lymphocytes % (Manual) Monocytes % (Manual) Nucleated RBC % Seg Neutrophils # Seg Neutrophils # Man Lymphocytes # (Manual) Monocytes # (Manual) PT INR POC ABG pH POC ABG pCO2 POC ABG pO2 Sodium Potassium Chloride Carbon Dioxide BUN Creatinine Glucose POC Glucose 163 H 199 H Lactic Acid Calcium Phosphorus AST ALT Alkaline Phosphatase Total Creatine Kinase CK-MB (CK-2) Rel Index Troponin T C-Reactive Protein 44.70 H Total Protein Albumin LDL Cholesterol Direct HDL Cholesterol Urine WBC (Auto) Salicylates Hepatitis C Antibody 05/12/17 05/12/17 05/12/17 08:42 13:10 14:10 WBC RBC Hgb Hct MCV MCH RDW Lymph % (Auto) [place] % (Auto) Lymph # [place] # Baso # Seg Neutrophils % Seg Neuts % (Manual) Lymphocytes % (Manual) Monocytes % (Manual) Nucleated RBC % Seg Neutrophils # Seg Neutrophils # Man Lymphocytes # (Manual) Monocytes # (Manual) PT INR POC ABG pH POC ABG pCO2 POC ABG pO2 66 L Sodium Potassium Chloride Carbon Dioxide BUN Creatinine Glucose POC Glucose 190 H 162 H Lactic Acid Calcium Phosphorus AST ALT Alkaline Phosphatase Total Creatine Kinase CK-MB (CK-2) Rel Index Troponin T C-Reactive Protein Total Protein Albumin LDL Cholesterol Direct HDL Cholesterol Urine WBC (Auto) Salicylates Hepatitis C Antibody 05/12/17 05/12/17 05/12/17 15:46 16:05 21:42 WBC RBC Hgb Hct MCV MCH RDW Lymph % (Auto) [place] % (Auto) Lymph # [place] # Baso # Seg Neutrophils % Seg Neuts % (Manual) Lymphocytes % (Manual) Monocytes % (Manual) Nucleated RBC % Seg Neutrophils # Seg Neutrophils # Man Lymphocytes # (Manual) Monocytes # (Manual) PT INR POC ABG pH POC ABG pCO2 POC ABG pO2 Sodium Potassium Chloride Carbon Dioxide BUN Creatinine Glucose POC Glucose 153 H 153 H Lactic Acid 2.60 H* Calcium Phosphorus AST ALT Alkaline Phosphatase Total Creatine Kinase CK-MB (CK-2) Rel Index Troponin T C-Reactive Protein Total Protein Albumin LDL Cholesterol Direct HDL Cholesterol Urine WBC (Auto) Salicylates Hepatitis C Antibody 05/13/17 05/13/17 05/13/17 05:12 05:30 05:30 WBC 22.0 H RBC 3.02 L Hgb 9.9 L Hct MCV 105 H MCH 33 H RDW 22.9 H Lymph % (Auto) [place] % (Auto) Lymph # [place] # Baso # Seg Neutrophils % Seg Neuts % (Manual) 89.0 H Lymphocytes % (Manual) 6.0 L Monocytes % (Manual) Nucleated RBC % 1.0 H Seg Neutrophils # Seg Neutrophils # Man 19.6 H Lymphocytes # (Manual) Monocytes # (Manual) 0.9 H PT INR POC ABG pH POC ABG pCO2 POC ABG pO2 Sodium Potassium Chloride 90.8 L Carbon Dioxide 21 L BUN 28 H Creatinine 3.1 H Glucose 172 H POC Glucose 182 H Lactic Acid Calcium Phosphorus AST ALT Alkaline Phosphatase Total Creatine Kinase CK-MB (CK-2) Rel Index Troponin T C-Reactive Protein Total Protein Albumin LDL Cholesterol Direct HDL Cholesterol Urine WBC (Auto) Salicylates Hepatitis C Antibody 05/13/17 05/13/17 05/13/17 11:52 18:01 23:31 WBC RBC Hgb Hct MCV MCH RDW Lymph % (Auto) [place] % (Auto) Lymph # [place] # Baso # Seg Neutrophils % Seg Neuts % (Manual) Lymphocytes % (Manual) Monocytes % (Manual) Nucleated RBC % Seg Neutrophils # Seg Neutrophils # Man Lymphocytes # (Manual) Monocytes # (Manual) PT INR POC ABG pH POC ABG pCO2 POC ABG pO2 Sodium Potassium Chloride Carbon Dioxide BUN Creatinine Glucose POC Glucose 185 H 216 H 281 H Lactic Acid Calcium Phosphorus AST ALT Alkaline Phosphatase Total Creatine Kinase CK-MB (CK-2) Rel Index Troponin T C-Reactive Protein Total Protein Albumin LDL Cholesterol Direct HDL Cholesterol Urine WBC (Auto) Salicylates Hepatitis C Antibody 05/14/17 05/14/17 05/14/17 05:43 06:10 06:10 WBC 19.6 H RBC 3.61 L Hgb Hct MCV 104 H MCH 34 H RDW 23.4 H Lymph % (Auto) 8.6 L [place] % (Auto) Lymph # [place] # 1.3 H Baso # 0.2 H Seg Neutrophils % 82.5 H Seg Neuts % (Manual) Lymphocytes % (Manual) Monocytes % (Manual) Nucleated RBC % Seg Neutrophils # 16.2 H Seg Neutrophils # Man Lymphocytes # (Manual) Monocytes # (Manual) PT INR POC ABG pH POC ABG pCO2 POC ABG pO2 Sodium Potassium 3.4 L Chloride 89.1 L Carbon Dioxide BUN 32 H Creatinine 3.0 H Glucose 224 H POC Glucose 215 H Lactic Acid Calcium Phosphorus AST 85 H ALT 162 H Alkaline Phosphatase 347 H Total Creatine Kinase CK-MB (CK-2) Rel Index Troponin T C-Reactive Protein Total Protein 8.5 H Albumin LDL Cholesterol Direct HDL Cholesterol Urine WBC (Auto) Salicylates Hepatitis C Antibody 05/14/17 05/14/17 05/14/17 08:32 11:26 16:42 WBC RBC Hgb Hct MCV MCH RDW Lymph % (Auto) [place] % (Auto) Lymph # [place] # Baso # Seg Neutrophils % Seg Neuts % (Manual) Lymphocytes % (Manual) Monocytes % (Manual) Nucleated RBC % Seg Neutrophils # Seg Neutrophils # Man Lymphocytes # (Manual) Monocytes # (Manual) PT INR POC ABG pH POC ABG pCO2 POC ABG pO2 Sodium Potassium Chloride Carbon Dioxide BUN Creatinine Glucose POC Glucose 204 H 182 H 310 H Lactic Acid Calcium Phosphorus AST ALT Alkaline Phosphatase Total Creatine Kinase CK-MB (CK-2) Rel Index Troponin T C-Reactive Protein Total Protein Albumin LDL Cholesterol Direct HDL Cholesterol Urine WBC (Auto) Salicylates Hepatitis C Antibody 05/14/17 05/15/17 05/15/17 23:00 03:45 03:45 WBC 18.3 H RBC 3.42 L Hgb Hct MCV 105 H MCH 34 H RDW 23.0 H Lymph % (Auto) 10.4 L [place] % (Auto) 7.7 H Lymph # [place] # 1.4 H Baso # Seg Neutrophils % 79.5 H Seg Neuts % (Manual) Lymphocytes % (Manual) Monocytes % (Manual) Nucleated RBC % Seg Neutrophils # 14.6 H Seg Neutrophils # Man Lymphocytes # (Manual) Monocytes # (Manual) PT INR POC ABG pH POC ABG pCO2 POC ABG pO2 Sodium 132 L Potassium Chloride 88.4 L Carbon Dioxide BUN 29 H Creatinine 2.8 H Glucose 310 H POC Glucose 264 H Lactic Acid Calcium Phosphorus AST 54 H ALT 111 H Alkaline Phosphatase 318 H Total Creatine Kinase CK-MB (CK-2) Rel Index Troponin T C-Reactive Protein Total Protein Albumin 3.7 L LDL Cholesterol Direct HDL Cholesterol Urine WBC (Auto) Salicylates Hepatitis C Antibody 05/15/17 05/15/17 05/15/17 07:36 12:14 12:15 WBC RBC Hgb Hct MCV MCH RDW Lymph % (Auto) [place] % (Auto) Lymph # [place] # Baso # Seg Neutrophils % Seg Neuts % (Manual) Lymphocytes % (Manual) Monocytes % (Manual) Nucleated RBC % Seg Neutrophils # Seg Neutrophils # Man Lymphocytes # (Manual) Monocytes # (Manual) PT INR POC ABG pH POC ABG pCO2 POC ABG pO2 Sodium Potassium Chloride Carbon Dioxide BUN Creatinine Glucose POC Glucose 253 H > 500 H Lactic Acid Calcium Phosphorus AST ALT Alkaline Phosphatase Total Creatine Kinase CK-MB (CK-2) Rel Index Troponin T C-Reactive Protein 14.70 H Total Protein Albumin LDL Cholesterol Direct HDL Cholesterol Urine WBC (Auto) Salicylates Hepatitis C Antibody 05/15/17 05/15/17 05/15/17 12:15 15:43 22:26 WBC RBC Hgb Hct MCV MCH RDW Lymph % (Auto) [place] % (Auto) Lymph # [place] # Baso # Seg Neutrophils % Seg Neuts % (Manual) Lymphocytes % (Manual) Monocytes % (Manual) Nucleated RBC % Seg Neutrophils # Seg Neutrophils # Man Lymphocytes # (Manual) Monocytes # (Manual) PT INR POC ABG pH POC ABG pCO2 POC ABG pO2 Sodium Potassium Chloride Carbon Dioxide BUN Creatinine Glucose 336 H POC Glucose 288 H 243 H Lactic Acid Calcium Phosphorus AST ALT Alkaline Phosphatase Total Creatine Kinase CK-MB (CK-2) Rel Index Troponin T C-Reactive Protein Total Protein Albumin LDL Cholesterol Direct HDL Cholesterol Urine WBC (Auto) Salicylates Hepatitis C Antibody 05/16/17 05/16/17 05/16/17 04:00 04:00 07:26 WBC 23.5 H RBC 3.25 L Hgb Hct MCV 106 H MCH 33 H RDW 23.2 H Lymph % (Auto) [place] % (Auto) Lymph # [place] # Baso # Seg Neutrophils % Seg Neuts % (Manual) Lymphocytes % (Manual) 9.0 L Monocytes % (Manual) 14.0 H Nucleated RBC % Seg Neutrophils # Seg Neutrophils # Man 15.3 H Lymphocytes # (Manual) Monocytes # (Manual) 3.3 H PT INR POC ABG pH POC ABG pCO2 POC ABG pO2 Sodium Potassium Chloride 91.5 L Carbon Dioxide BUN 48 H Creatinine 4.5 H D Glucose POC Glucose 107 H Lactic Acid Calcium Phosphorus AST ALT Alkaline Phosphatase Total Creatine Kinase CK-MB (CK-2) Rel Index Troponin T C-Reactive Protein Total Protein Albumin LDL Cholesterol Direct HDL Cholesterol Urine WBC (Auto) Salicylates Hepatitis C Antibody 05/16/17 05/16/17 05/16/17 11:57 17:14 21:30 WBC RBC Hgb Hct MCV MCH RDW Lymph % (Auto) [place] % (Auto) Lymph # [place] # Baso # Seg Neutrophils % Seg Neuts % (Manual) Lymphocytes % (Manual) Monocytes % (Manual) Nucleated RBC % Seg Neutrophils # Seg Neutrophils # Man Lymphocytes # (Manual) Monocytes # (Manual) PT INR POC ABG pH POC ABG pCO2 POC ABG pO2 Sodium Potassium Chloride Carbon Dioxide BUN Creatinine Glucose POC Glucose 190 H 200 H 152 H Lactic Acid Calcium Phosphorus AST ALT Alkaline Phosphatase Total Creatine Kinase CK-MB (CK-2) Rel Index Troponin T C-Reactive Protein Total Protein Albumin LDL Cholesterol Direct HDL Cholesterol Urine WBC (Auto) Salicylates Hepatitis C Antibody 05/17/17 05/17/17 05/17/17 04:45 04:45 08:20 WBC 16.7 H RBC 3.08 L Hgb Hct MCV 106 H MCH 33 H RDW 23.3 H Lymph % (Auto) 3.8 L [place] % (Auto) Lymph # 0.6 L [place] # 1.1 H Baso # 0.2 H Seg Neutrophils % 87.5 H Seg Neuts % (Manual) Lymphocytes % (Manual) Monocytes % (Manual) Nucleated RBC % Seg Neutrophils # 14.6 H Seg Neutrophils # Man Lymphocytes # (Manual) Monocytes # (Manual) PT INR POC ABG pH POC ABG pCO2 POC ABG pO2 Sodium 134 L Potassium Chloride 89.3 L Carbon Dioxide 21 L BUN 60 H Creatinine 6.1 H Glucose POC Glucose 107 H Lactic Acid Calcium Phosphorus AST ALT Alkaline Phosphatase 226 H Total Creatine Kinase CK-MB (CK-2) Rel Index Troponin T C-Reactive Protein Total Protein Albumin 3.5 L LDL Cholesterol Direct HDL Cholesterol Urine WBC (Auto) Salicylates Hepatitis C Antibody 05/17/17 05/17/17 05/17/17 11:24 16:24 21:34 WBC RBC Hgb Hct MCV MCH RDW Lymph % (Auto) [place] % (Auto) Lymph # [place] # Baso # Seg Neutrophils % Seg Neuts % (Manual) Lymphocytes % (Manual) Monocytes % (Manual) Nucleated RBC % Seg Neutrophils # Seg Neutrophils # Man Lymphocytes # (Manual) Monocytes # (Manual) PT INR POC ABG pH POC ABG pCO2 POC ABG pO2 Sodium Potassium Chloride Carbon Dioxide BUN Creatinine Glucose POC Glucose 172 H 116 H 182 H Lactic Acid Calcium Phosphorus AST ALT Alkaline Phosphatase Total Creatine Kinase CK-MB (CK-2) Rel Index Troponin T C-Reactive Protein Total Protein Albumin LDL Cholesterol Direct HDL Cholesterol Urine WBC (Auto) Salicylates Hepatitis C Antibody 05/18/17 05/18/17 05/18/17 05:06 08:01 11:32 WBC RBC Hgb Hct MCV MCH RDW Lymph % (Auto) [place] % (Auto) Lymph # [place] # Baso # Seg Neutrophils % Seg Neuts % (Manual) Lymphocytes % (Manual) Monocytes % (Manual) Nucleated RBC % Seg Neutrophils # Seg Neutrophils # Man Lymphocytes # (Manual) Monocytes # (Manual) PT INR POC ABG pH POC ABG pCO2 POC ABG pO2 Sodium Potassium Chloride Carbon Dioxide BUN Creatinine Glucose POC Glucose 153 H 145 H 247 H Lactic Acid Calcium Phosphorus AST ALT Alkaline Phosphatase Total Creatine Kinase CK-MB (CK-2) Rel Index Troponin T C-Reactive Protein Total Protein Albumin LDL Cholesterol Direct HDL Cholesterol Urine WBC (Auto) Salicylates Hepatitis C Antibody 05/18/17 05/18/17 05/19/17 16:09 22:17 03:00 WBC RBC 2.88 L Hgb 9.8 L Hct 30.2 L MCV 105 H MCH 34 H RDW 23.6 H Lymph % (Auto) 7.1 L [place] % (Auto) Lymph # 0.5 L [place] # Baso # Seg Neutrophils % 86.5 H Seg Neuts % (Manual) Lymphocytes % (Manual) Monocytes % (Manual) Nucleated RBC % Seg Neutrophils # Seg Neutrophils # Man Lymphocytes # (Manual) Monocytes # (Manual) PT INR POC ABG pH POC ABG pCO2 POC ABG pO2 Sodium Potassium Chloride Carbon Dioxide BUN Creatinine Glucose POC Glucose 237 H 162 H Lactic Acid Calcium Phosphorus AST ALT Alkaline Phosphatase Total Creatine Kinase CK-MB (CK-2) Rel Index Troponin T C-Reactive Protein Total Protein Albumin LDL Cholesterol Direct HDL Cholesterol Urine WBC (Auto) Salicylates Hepatitis C Antibody 05/19/17 05/19/17 05/19/17 03:00 07:19 21:30 WBC RBC Hgb Hct MCV MCH RDW Lymph % (Auto) [place] % (Auto) Lymph # [place] # Baso # Seg Neutrophils % Seg Neuts % (Manual) Lymphocytes % (Manual) Monocytes % (Manual) Nucleated RBC % Seg Neutrophils # Seg Neutrophils # Man Lymphocytes # (Manual) Monocytes # (Manual) PT INR POC ABG pH POC ABG pCO2 POC ABG pO2 Sodium 136 L Potassium Chloride 90.1 L Carbon Dioxide BUN 49 H Creatinine 4.8 H Glucose 126 H POC Glucose 128 H 145 H Lactic Acid Calcium Phosphorus AST ALT Alkaline Phosphatase Total Creatine Kinase CK-MB (CK-2) Rel Index Troponin T C-Reactive Protein Total Protein Albumin LDL Cholesterol Direct HDL Cholesterol Urine WBC (Auto) Salicylates Hepatitis C Antibody 05/20/17 05/20/17 05/20/17 05:00 05:00 07:34 WBC RBC 3.12 L Hgb Hct MCV 106 H MCH 33 H RDW 23.7 H Lymph % (Auto) [place] % (Auto) Lymph # [place] # Baso # Seg Neutrophils % Seg Neuts % (Manual) 93.0 H Lymphocytes % (Manual) 3.0 L Monocytes % (Manual) Nucleated RBC % Seg Neutrophils # Seg Neutrophils # Man 9.8 H Lymphocytes # (Manual) 0.3 L Monocytes # (Manual) PT INR POC ABG pH POC ABG pCO2 POC ABG pO2 Sodium Potassium Chloride 95.5 L Carbon Dioxide BUN 29 H Creatinine 2.9 H Glucose 167 H POC Glucose 182 H Lactic Acid Calcium Phosphorus AST ALT Alkaline Phosphatase 195 H Total Creatine Kinase CK-MB (CK-2) Rel Index Troponin T C-Reactive Protein Total Protein Albumin 3.6 L LDL Cholesterol Direct HDL Cholesterol Urine WBC (Auto) Salicylates Hepatitis C Antibody 05/20/17 05/20/17 05/20/17 11:33 15:52 22:59 WBC RBC Hgb Hct MCV MCH RDW Lymph % (Auto) [place] % (Auto) Lymph # [place] # Baso # Seg Neutrophils % Seg Neuts % (Manual) Lymphocytes % (Manual) Monocytes % (Manual) Nucleated RBC % Seg Neutrophils # Seg Neutrophils # Man Lymphocytes # (Manual) Monocytes # (Manual) PT INR POC ABG pH POC ABG pCO2 POC ABG pO2 Sodium Potassium Chloride Carbon Dioxide BUN Creatinine Glucose POC Glucose 206 H 164 H 121 H Lactic Acid Calcium Phosphorus AST ALT Alkaline Phosphatase Total Creatine Kinase CK-MB (CK-2) Rel Index Troponin T C-Reactive Protein Total Protein Albumin LDL Cholesterol Direct HDL Cholesterol Urine WBC (Auto) Salicylates Hepatitis C Antibody 05/21/17 05/21/17 05/21/17 04:09 04:09 12:35 WBC 13.8 H RBC 3.32 L Hgb Hct MCV 106 H MCH 34 H RDW 23.7 H Lymph % (Auto) 8.3 L [place] % (Auto) Lymph # 1.1 L [place] # Baso # Seg Neutrophils % 87.2 H Seg Neuts % (Manual) Lymphocytes % (Manual) Monocytes % (Manual) Nucleated RBC % Seg Neutrophils # 12.0 H Seg Neutrophils # Man Lymphocytes # (Manual) Monocytes # (Manual) PT INR POC ABG pH POC ABG pCO2 POC ABG pO2 Sodium Potassium Chloride 90.6 L Carbon Dioxide BUN 59 H Creatinine 4.1 H Glucose 112 H POC Glucose 128 H Lactic Acid Calcium 8.2 L Phosphorus AST ALT Alkaline Phosphatase 191 H Total Creatine Kinase CK-MB (CK-2) Rel Index Troponin T C-Reactive Protein Total Protein Albumin 3.7 L LDL Cholesterol Direct HDL Cholesterol Urine WBC (Auto) Salicylates Hepatitis C Antibody 05/21/17 05/21/17 05/22/17 16:35 21:35 06:18 WBC RBC Hgb Hct MCV MCH RDW Lymph % (Auto) [place] % (Auto) Lymph # [place] # Baso # Seg Neutrophils % Seg Neuts % (Manual) Lymphocytes % (Manual) Monocytes % (Manual) Nucleated RBC % Seg Neutrophils # Seg Neutrophils # Man Lymphocytes # (Manual) Monocytes # (Manual) PT INR POC ABG pH POC ABG pCO2 POC ABG pO2 Sodium Potassium Chloride Carbon Dioxide BUN Creatinine Glucose POC Glucose 116 H 121 H 132 H Lactic Acid Calcium Phosphorus AST ALT Alkaline Phosphatase Total Creatine Kinase CK-MB (CK-2) Rel Index Troponin T C-Reactive Protein Total Protein Albumin LDL Cholesterol Direct HDL Cholesterol Urine WBC (Auto) Salicylates Hepatitis C Antibody 05/22/17 05/23/17 05/23/17 11:52 05:53 05:53 WBC 22.5 H RBC 3.49 L Hgb Hct MCV 106 H MCH 33 H RDW 23.1 H Lymph % (Auto) [place] % (Auto) Lymph # [place] # Baso # Seg Neutrophils % Seg Neuts % (Manual) Lymphocytes % (Manual) Monocytes % (Manual) Nucleated RBC % Seg Neutrophils # Seg Neutrophils # Man Lymphocytes # (Manual) Monocytes # (Manual) PT INR POC ABG pH POC ABG pCO2 POC ABG pO2 Sodium Potassium Chloride 93.7 L Carbon Dioxide BUN 60 H Creatinine 4.6 H Glucose 101 H POC Glucose 133 H Lactic Acid Calcium Phosphorus 4.60 H AST ALT Alkaline Phosphatase Total Creatine Kinase CK-MB (CK-2) Rel Index Troponin T C-Reactive Protein Total Protein Albumin LDL Cholesterol Direct HDL Cholesterol Urine WBC (Auto) Salicylates Hepatitis C Antibody 05/23/17 05/24/17 05/24/17 21:35 06:52 12:10 WBC RBC Hgb Hct MCV MCH RDW Lymph % (Auto) [place] % (Auto) Lymph # [place] # Baso # Seg Neutrophils % Seg Neuts % (Manual) Lymphocytes % (Manual) Monocytes % (Manual) Nucleated RBC % Seg Neutrophils # Seg Neutrophils # Man Lymphocytes # (Manual) Monocytes # (Manual) PT INR POC ABG pH POC ABG pCO2 POC ABG pO2 Sodium Potassium Chloride Carbon Dioxide BUN Creatinine Glucose POC Glucose 108 H 119 H 135 H Lactic Acid Calcium Phosphorus AST ALT Alkaline Phosphatase Total Creatine Kinase CK-MB (CK-2) Rel Index Troponin T C-Reactive Protein Total Protein Albumin LDL Cholesterol Direct HDL Cholesterol Urine WBC (Auto) Salicylates Hepatitis C Antibody 05/24/17 05/24/17 05/25/17 16:45 22:03 04:59 WBC 14.4 H RBC 3.26 L Hgb Hct MCV 106 H MCH 33 H RDW 23.1 H Lymph % (Auto) 9.7 L [place] % (Auto) 9.0 H Lymph # [place] # 1.3 H Baso # Seg Neutrophils % 80.2 H Seg Neuts % (Manual) Lymphocytes % (Manual) Monocytes % (Manual) Nucleated RBC % Seg Neutrophils # 11.5 H Seg Neutrophils # Man Lymphocytes # (Manual) Monocytes # (Manual) PT INR POC ABG pH POC ABG pCO2 POC ABG pO2 Sodium Potassium Chloride Carbon Dioxide BUN Creatinine Glucose POC Glucose 152 H 114 H Lactic Acid Calcium Phosphorus AST ALT Alkaline Phosphatase Total Creatine Kinase CK-MB (CK-2) Rel Index Troponin T C-Reactive Protein Total Protein Albumin LDL Cholesterol Direct HDL Cholesterol Urine WBC (Auto) Salicylates Hepatitis C Antibody 05/25/17 05/25/17 05/25/17 04:59 16:41 22:23 WBC RBC Hgb Hct MCV MCH RDW Lymph % (Auto) [place] % (Auto) Lymph # [place] # Baso # Seg Neutrophils % Seg Neuts % (Manual) Lymphocytes % (Manual) Monocytes % (Manual) Nucleated RBC % Seg Neutrophils # Seg Neutrophils # Man Lymphocytes # (Manual) Monocytes # (Manual) PT INR POC ABG pH POC ABG pCO2 POC ABG pO2 Sodium 134 L D Potassium Chloride 87.1 L Carbon Dioxide BUN 36 H Creatinine 3.6 H Glucose 102 H POC Glucose 239 H 135 H Lactic Acid Calcium 8.2 L Phosphorus AST ALT Alkaline Phosphatase Total Creatine Kinase CK-MB (CK-2) Rel Index Troponin T C-Reactive Protein Total Protein Albumin LDL Cholesterol Direct HDL Cholesterol Urine WBC (Auto) Salicylates Hepatitis C Antibody 05/26/17 05/26/17 05/26/17 04:35 05:52 05:52 WBC 16.7 H RBC 2.63 L Hgb 8.8 L Hct 27.3 L D MCV 104 H MCH 33 H RDW 23.4 H Lymph % (Auto) [place] % (Auto) Lymph # [place] # Baso # Seg Neutrophils % Seg Neuts % (Manual) 78.0 H Lymphocytes % (Manual) 11.0 L Monocytes % (Manual) 9.0 H Nucleated RBC % Seg Neutrophils # Seg Neutrophils # Man 13.0 H Lymphocytes # (Manual) Monocytes # (Manual) 1.5 H PT INR POC ABG pH POC ABG pCO2 POC ABG pO2 Sodium 134 L Potassium Chloride 88.1 L Carbon Dioxide BUN 73 H Creatinine 5.3 H Glucose 127 H POC Glucose 165 H Lactic Acid Calcium 8.2 L Phosphorus AST ALT Alkaline Phosphatase Total Creatine Kinase CK-MB (CK-2) Rel Index Troponin T C-Reactive Protein Total Protein Albumin LDL Cholesterol Direct HDL Cholesterol Urine WBC (Auto) Salicylates Hepatitis C Antibody 05/26/17 11:29 WBC RBC Hgb Hct MCV MCH RDW Lymph % (Auto) [place] % (Auto) Lymph # [place] # Baso # Seg Neutrophils % Seg Neuts % (Manual) Lymphocytes % (Manual) Monocytes % (Manual) Nucleated RBC % Seg Neutrophils # Seg Neutrophils # Man Lymphocytes # (Manual) Monocytes # (Manual) PT INR POC ABG pH POC ABG pCO2 POC ABG pO2 Sodium Potassium Chloride Carbon Dioxide BUN Creatinine Glucose POC Glucose 165 H Lactic Acid Calcium Phosphorus AST ALT Alkaline Phosphatase Total Creatine Kinase CK-MB (CK-2) Rel Index Troponin T C-Reactive Protein Total Protein Albumin LDL Cholesterol Direct HDL Cholesterol Urine WBC (Auto) Salicylates Hepatitis C Antibody Chest x-ray: report reviewed, image reviewed
== END 2017-05-26 13:55 | DRG 871 ==
LOC: ED 19:47 → CC1 05-09 00:46 → 4A 05-10 19:30 → CC1 05-12 13:43 → 3A 05-20 19:00
PROVIDERS: ADMIT Internal Medicine; ATTEND Hospitalist
PROC: 5A1935Z Respiratory Ventilation, Less than 24 Consecutive Hours (ICD-10-PCS; 2017-05-08)
PROC: 0BH17EZ Insertion of Endotracheal Airway into Trachea, Via Natural or Artificial Opening (ICD-10-PCS; 2017-05-08)
PROC: 4A033R1 Measurement of Arterial Saturation, Peripheral, Percutaneous Approach (ICD-10-PCS; principal; 2017-05-12)
PROC: 06H033Z Insertion of Infusion Device into Inferior Vena Cava, Percutaneous Approach (ICD-10-PCS; 2017-05-12)
PROC: B549ZZA Ultrasonography of Inferior Vena Cava, Guidance (ICD-10-PCS; 2017-05-12)
PROC: 5A1D70Z Performance of Urinary Filtration, Intermittent, Less than 6 Hours Per Day (ICD-10-PCS; 2017-05-19)
PROC: 5A09357 Assistance with Respiratory Ventilation, Less than 24 Consecutive Hours, Continuous Positive Airway Pressure (ICD-10-PCS; 2017-05-20)
PROC: 5A1D70Z Performance of Urinary Filtration, Intermittent, Less than 6 Hours Per Day (ICD-10-PCS; 2017-05-21)
PROC: 5A1D70Z Performance of Urinary Filtration, Intermittent, Less than 6 Hours Per Day (ICD-10-PCS; 2017-05-24)
PROC: 5A09357 Assistance with Respiratory Ventilation, Less than 24 Consecutive Hours, Continuous Positive Airway Pressure (ICD-10-PCS; 2017-05-25)
DX: A41.9 Sepsis, unspecified organism (principal); N18.6 End stage renal disease; I50.23 Acute on chronic systolic (congestive) heart failure; G93.41 Metabolic encephalopathy; J15.212 Pneumonia due to Methicillin resistant Staphylococcus aureus; R65.21 Severe sepsis with septic shock; J96.21 Acute and chronic respiratory failure with hypoxia; N25.81 Secondary hyperparathyroidism of renal origin; I13.2 Hypertensive heart and chronic kidney disease with heart failure and with stage 5 chronic kidney disease, or end stage renal disease; R18.8 Other ascites; B19.10 Unspecified viral hepatitis B without hepatic coma; N17.9 Acute kidney failure, unspecified; F17.200 Nicotine dependence, unspecified, uncomplicated; I25.10 Atherosclerotic heart disease of native coronary artery without angina pectoris; F17.210 Nicotine dependence, cigarettes, uncomplicated; J32.0 Chronic maxillary sinusitis; D63.1 Anemia in chronic kidney disease; B19.20 Unspecified viral hepatitis C without hepatic coma; I27.20 Pulmonary hypertension, unspecified; I07.1 Rheumatic tricuspid insufficiency; I25.5 Ischemic cardiomyopathy; R13.10 Dysphagia, unspecified; E11.22 Type 2 diabetes mellitus with diabetic chronic kidney disease; E78.00 Pure hypercholesterolemia, unspecified; Z99.2 Dependence on renal dialysis; Z79.899 Other long term (current) drug therapy; Z79.82 Long term (current) use of aspirin; Z86.73 Personal history of transient ischemic attack (TIA), and cerebral infarction without residual deficits; I25.2 Old myocardial infarction; Z95.5 Presence of coronary angioplasty implant and graft; Z90.49 Acquired absence of other specified parts of digestive tract; Z88.2 Allergy status to sulfonamides
CPT/HCPCS: 36415; 36600; 70450; 71010; 71020; 71250; 72125; 74176; 74230; 80048; 80053; 80061; 80074; 80320; 81001; 82140; 82533; 82550; 82553; 82803; 82947; 82962; 83036; 83735; 84100; 84484; 85007; 85025; 85027; 85610; 85730; 86140; 86403; 87040; 87070; 87186; 87205; 93005; 93010; 94002; 94003; 94640; 94660; 94760; 96365; 96367; 96368; A6250; A9270-GY; G0480; G8996-GN; G8997-GN; J0692; J0696; J1644; J1720; J1815; J2020; J2405; J3010; J3370; J7030; J7040; J7050; P9047